=== PATIENT | male | born 1940 | race Caucasian/White ===

== ENCOUNTER 2016-12-26 18:31 | Inpatient (IN) | payer MEDICARE, BC ==
[~2016-12-26] VITALS: Ht 198.1 cm; Wt 124.9 kg
[~2016-12-26 18:31] MED LIST: AMLO1TAB97 PO; IBUP-1007 PO
[2016-12-26] MEDS: IV NORMAL SALINE 1000ML BAG 1,000 ML IV SCH ×5 (19:08→21:40)
[2016-12-26 19:18] LABS: BASO % 0 % (0-3); EOS % 0 % (0-3); HEMATOCRIT 47.3 % (39.0-53.0); HEMOGLOBIN 16.6 g/dL (13.0-17.5); LYMPH # 0.2 x10^3/uL (1.0-4.8); LYMPH % 2 % (24-48); MEAN CORPUSCULAR HEMOGLOBIN 32 pg (25-35); MEAN CORPUSCULAR HGB CONC 35 g/dL (31-37); MEAN CORPUSCULAR VOLUME 93 fL (79-100); MONO % 1 % (0-9); NEUT % 98 % (31-73); PLATELET COUNT 161 x10^3/uL (140-400); RED CELL DISTRIBUTION WIDTH 13.6 % (11.5-14.5); WHITE BLOOD COUNT 9.5 x10^3/uL (4.0-11.0)
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
[2016-12-26 19:24] LABS: CALCIUM 9.9 mg/dL (8.5-10.1); CREATININE 2.2 mg/dL (0.7-1.3); GFR 29.3; POTASSIUM 3.6 mmol/L (3.5-5.1)
[2016-12-26 19:30] LABS: ALBUMIN/GLOBULIN RATIO 0.7 (1.0-1.7); TOTAL BILIRUBIN 7.3 mg/dL (0.2-1.0); TOTAL PROTEIN 7.5 g/dL (6.4-8.2)
--- NOTE | 2016-12-26 19:58 | RAD ---
LIMITED ABDOMINAL ULTRASOUND History: Upper abdominal pain, chills. Comparison: None. Procedure: Transabdominal ultrasound images are obtained. Findings: Pancreas is not well seen, possibly obscured by bowel gas. Liver is suboptimally visualized. Right hepatic lobe is enlarged measuring 20.3 cm. No focal hepatic masses are identified. Parenchymal echogenicity appears mildly increased. Gallbladder is absent. Common bile duct measures normally at 5 mm in diameter. Right kidney measures 10.8 cm in length. There is no evidence of stone or hydronephrosis. Right kidney demonstrates cyst measuring 2.0 cm IVC is poorly visualized. Impression: 1. Echogenic, enlarged liver, compatible with fatty liver disease. 2. Status post cholecystectomy. 3. Right renal cyst. Electronically signed by: Douglas Dimas MD (12/26/2016 7:54 PM)
[2016-12-26 20:03] LABS: PLT ESTIMATE DECREASED (ADEQUATE); POLYCHROMASIA SLIGHT
[2016-12-26 20:04] LABS: OVALOCYTES OCC
[2016-12-26] MEDS ORDERED: levOFLOXacin PER PHARMACY. MC PRN (20:30)
[2016-12-26] MEDS ORDERED: PIP/TAZO PER PHARMACY MC PRN (20:30)
[2016-12-26] MEDS ORDERED: HYDROCORTISONE SOD SUCC/PF 100 MG/2 ML VIAL. IV ONE (20:30)
[2016-12-26 20:37] LABS: GLUCOSE,URINE NEGATIVE (NEG); PH,URINE 5.5; PROTEIN,URINE 100 mg/dL (NEG-TRACE)
--- NOTE | 2016-12-26 20:42 | ACF ---
Admission Forms Criteria SEVERE SEPSIS Clinical Indications for Admission to Inpatient Care (Place 'X' for any and all applicable criteria): Hospital admission is needed for appropriate care of the patient because of ANY ONE of the following: [X]I. Hemodynamic instability indicated by ANY ONE of the following(1)(2)(3)( 4)(5): []a. Vital sign abnormality not readily corrected by appropriate treatment within 12 to 24 hours indicated by ANY ONE of the following: []i) Tachycardia that persists despite appropriate treatment []ii) Hypotension that persists despite appropriate treatment []iii) Orthostatic vital sign changes that persist despite appropriate treatment [X]b. Vital sign abnormality that is severe indicated by ANY ONE of the following: [X]i. Inadequate perfusion indicated by ANY ONE of the following: [X]1) Lactic acidosis (greater than 2 mmol/L) []2) New abnormal capillary refill (greater than 3 seconds) []3) Reduced urine output []4) New altered mental status []5) Myocardial Ischemia []ii. Mean arterial pressure [A] less than 60 mm Hg []iii. Mean arterial pressure[A] less than 70 mm Hg after 30 minutes of appropriate treatment (eg, fluid resuscitation) []iv. Sustained heart rate greater than 120 beats per minute in adult []v. IV inotropic or vasopressor medication required to maintain adequate blood pressure or perfusion []II. Systemic or infectious condition causing severe symptoms or findings not responsive to emergency or observation care treatment (as appropriate) indicated by ANY ONE of the following: []a. Cardiac arrhythmias of immediate concern(1)(2)(3) []b. Severe endocrine disorder (eg, thyrotoxicosis, adrenal insufficiency)(4)(5) []c. Seizures (eg, new or recurrent)(6) []d. New-onset end organ failure or dysfunction as indicated by ANY ONE of the following: []i. Acute unexplained hypoxemia (eg, not from lung infection or chronic disease)(7)(8)(9) []ii. Acute renal failure as indicated by new onset of ANY ONE of the following(10)(11)(12)(13)(14): []1) 3-fold rise in serum creatinine from baseline []2) Serum creatinine greater than 4 mg/dL (354 micromoles/L) with acute rise greater than 0.5 mg/dL (44.2 micromoles/L) []3) Reduction of more than 75% in estimated glomerular filtration rate from baseline. []4) Estimated glomerular filtration rate less than 35 mL/min/1.73m2 ( 0.59 mL/sec/1.73m2) in child younger than 18 years. []5) Cessation of urine output indicated by ALL of the following: []A. Adequate volume status []B. Inadequate urine output as indicated by ANY ONE of the following: []a. Urine output less than 0.3 mL/kg/hr for 24 hours []b. Anuria (urine output less than 0.1 mL/kg/hr) for 12 hours []iii. Acute mental status changes(15) []iv. Acute hepatic failure (eg, plasma bilirubin greater than 4 mg/ dL (68 micromoles/L), new INR greater than 2.0)(16)(17) []e. Unmanageable nausea and vomiting(18) []f. New-onset or uncontrolled central diabetes insipidus(19)(20) []g. Clinically significant dehydration(18)(21) []h. Hypoglycemia(22) []i. Acidosis (pH less than 7.35) or alkalosis (pH greater than 7.45)( 22)(23) []j. Toxic drug level that indicates need for specific monitoring or treatment(24)(25) []k. Severe electrolyte abnormalities indicated by ALL of the following( 1)(2)(3): []i. Electrolytes and associated findings are not as expected for patient baseline or acceptable treatment effects. []ii. Severe abnormalities indicated by ANY ONE of the following: []1) Sodium less than 130 mEq/L (mmol/L) (new) []2) Sodium less than 135 mEq/L (mmol/L) with ANY ONE of the following: []A. Uncorrectable (to near normal or chronic baseline) after trial of outpatient and emergency treatment []B. Altered mental status []C. Seizures []D. Severe medical etiology requiring inpatient management (eg , heart failure, hypovolemia) []3) Sodium greater than 155 mEq/L (mmol/L) []4) Sodium greater than 150 mEq/L (mmol/L) with ANY ONE of the following: []A. Uncorrectable (to near normal or chronic baseline) with outpatient and emergency treatment []B. Altered mental status []C. Seizures []D. Severe medical etiology (eg, hypovolemia, diabetes insipidus) []5) Potassium less than 2.5 mEq/L (mmol/L) despite outpatient and emergency treatment []6) Potassium less than 3 mEq/L (mmol/L) with ANY ONE of the following : []A. Weakness []B. Cardiac abnormality (eg, arrhythmia, conduction disturbance ) []C. Cardiac ischemia []D. Ileus []E. Ongoing medical cause requiring inpatient management (eg, acute renal wasting or SIADH) []F. Other severe symptoms []7) Potassium greater than 6.5 mEq/L (mmol/L) []8) Potassium greater than 5 mEq/L (mmol/L) with ANY ONE of the following: []A. Uncorrectable (to near normal or chronic baseline) with outpatient and emergency treatment []B. Severe ECG findings[A] []C. Acute worsening of renal failure (creatinine greater than 2.5 mg/dL (221 micromoles/L) or significant elevation for age and size) []D. Severe weakness []E. Severe medical etiology (eg, hemolysis, infection, drug overdose) []9) Calcium less than 7 mg/dL (1.75 mmol/L) despite outpatient and emergency treatment(5) []10) Calcium less than 8 mg/dL (2 mmol/L) with significant symptoms or findings (eg, altered mental status, muscle spasms, seizures, breathing difficulty, cardiac abnormality (eg, arrhythmia or conduction disturbance))(5) []11) Calcium greater than 14 mg/dL (3.5 mmol/L)(5) []12) Calcium greater than 12 mg/dL (3 mmol/L) with ANY ONE of the following(5): []A. Uncorrectable (to near normal or chronic baseline) with outpatient and emergency treatment []B. Significant dehydration or hypovolemia as indicated by ALL of the following(3)(6)(7): []a. Not resolved with initial treatments []b. Clinically significant dehydration as indicated by ANY ONE of the following: [](1) Vomiting refractory to outpatient treatment (ie, precluding oral rehydration) [](2) Inability to drink [](3) Hypernatremia or other electrolyte abnormality unable to be corrected with outpatient and emergency treatment [](4) Failure to remain hydrated with outpatient therapy [](5) Reduced urine output [](6) Hypotension [](7) Serious cause for dehydration requiring acute hospitalization ( eg, bowel obstruction, increased intracranial pressure, infectious cause) [](8) Child with ANY ONE of the following(8): [](i) Severe abdominal tenderness [](ii) Adequate care not available at home [](iii) Severe dehydration (greater than 9% loss of body weight) []C. Significant symptoms or findings (eg, altered mental status , cardiac abnormality (eg, arrhythmia, conduction disturbance), malignant etiology requiring inpatient treatment) []13) Phosphorus less than 1 mg/dL (0.32 mmol/L) []14) Phosphorus less than 1.5 mg/dL (0.48 mmol/L) with ANY ONE of the following: []A. Patient unresponsive to outpatient and emergency treatment []B. Significant symptoms or findings (eg, weakness, altered mental status, breathing difficulty, seizures, rhabdomyolysis) []15) Phosphorus greater than 10 mg/dL (3.2 mmol/L) []16) Phosphorus greater than 4.5 mg/dL (1.45 mmol/L) (new) with ANY ONE of the following: []A. Severe medical etiology (eg, crush injury, acute renal failure) []B. Associated hypocalcemia with significant findings (eg, neurologic symptoms, altered mental status, muscle spasms, seizures, breathing difficulty, cardiac abnormality (eg, arrhythmia, conduction disturbance)) []16) Magnesium less than 1 mg/dL (0.41 mmol/L) []17) Magnesium less than 1.5 mg/dL (0.62 mmol/L) with ANY ONE of the following: []A. Patient unresponsive to outpatient and emergency treatment []B. Associated hypocalcemia with significant findings (eg, altered mental status, muscle spasms, seizures, breathing difficulty, cardiac abnormality (eg, arrhythmia, conduction disturbance)) []C. Associated hypokalemia (potassium less than 3 mEq/L (mmol/L )) with risk of arrhythmia []18) Magnesium greater than 4 mEq/L (2 mmol/L) []19) Magnesium greater than 2.5 mEq/L (1.25 mmol/L) with significant symptoms or findings (eg, weakness, altered mental status, cardiac abnormality (eg, arrhythmia, conduction disturbance), breathing difficulty, severe medical etiology (eg, renal failure, hypovolemia)) []20) Uric acid greater than 20 mg/dL (1190 micromoles/L)(9) []21) Uric acid greater than 8 mg/dL (476 micromoles/L) with significant symptoms or findings of tumor lysis syndrome (eg, creatinine greater than 1.5 times upper limit of normal, cardiac abnormality (eg , arrhythmia, conduction disturbance), seizure)(9) []III. High fever or other high-risk infection situation as indicated by ANY ONE of the following(26)(27)(28): []a. Outpatient and observation care antimicrobial treatment unavailable, not effective, or not appropriate []b. Documented bacteremia []c. Temperature greater than 104.9 degrees F (40.5 degrees C) (oral) []d. Temperature greater than 103.1 degrees F (39.5 degrees C) (oral) or less than 96.8 degrees F (36 degrees C) (rectal) that does not respond to emergency treatment and observation care []IV. High-risk febrile neutropenia[A] as indicated by ANY ONE of the following(29)(30)(31)(32): []a. Profound neutropenia[B] anticipated to extend for more than 7 days []b. Hemodynamic instability []c. Hypoxemia []d. Tachypnea []e. Altered mental status []f. New-onset abdominal pain []g. New-onset vomiting or diarrhea []h. Oral or gastrointestinal mucositis that interferes with swallowing or causes severe diarrhea []i. Focal infection (eg, cellulitis, pneumonia, central line or catheter infection, perirectal abscess) []j. Renal insufficiency (eg, GFR of less than 30 mL/min/1.73m2 (0.5 mL/sec /1.73m2)). []k. Severe liver dysfunction (transaminase levels greater than 5 times normal) []l. Platelet count less than 50,000/mm3 (50 x109/L)(33) []m. Leukemia or lymphoma induction therapy []n. Leukemia not in complete remission or with evidence of disease progression []o. Bone marrow transplant patient []p. Alemtuzumab being used for therapy []q. [employer] Supportive Care in Cancer (MASCC) Risk Index score of less than 21[C](33)(35). []V. Isolation required (eg, tuberculosis that requires isolation, Ebola infection)[D](36)(37)(38)(39)(40) []. Gangrene that requires treatment beyond emergency or observation level care(41)(42) []VII. Antitoxin administration and ongoing observation required (eg, tetanus, botulism)(43)(44) []. Suspected infection with rapid progression or severe symptoms as indicated by ANY ONE of the following(45): []a. Streptococcal or staphylococcal toxic shock(46) []b. Diphtheria(47) []c. Hantavirus(48) []d. Severe acute respiratory syndrome(8)(49) []e. Anthrax(50) []f. Ebola[D](36)(37)(38) []g. Necrotizing soft tissue infection(41)(42) []h. Plague(50) []i. Other suspected infection that requires care beyond emergency or observation level care []VII. Severe adverse drug or systemic toxin reaction as indicated by ANY ONE of the following(24): []a. Serotonin syndrome(51)(52) []b. Neuroleptic malignant syndrome(51)(52) []c. Cholinergic syndrome with severe symptoms (eg, bronchorrhea, weakness , mental status changes, seizures)(53) []d. Anticholinergic syndrome []e. Sympathetic syndrome with severe symptoms (eg, seizures, mental status changes, cardiac dysrhythmias) []f. Other severe adverse drug or systemic toxin reaction that remains after emergency or observation level care (as appropriate) []VIII. Allergic reaction with severe symptoms (not responsive to emergency or observation care treatment as appropriate), including ANY ONE of the following(54): []a. Airway edema (pharyngeal, epiglottic, or laryngeal edema) []b. Stridor []c. Respiratory failure []d. Bronchospasm []e. Hypotension []IX. Environmental emergency (not responsive to emergency or observation care treatment as appropriate) as indicated by ANY ONE of the following(55)(56): []a. Hyperthermia []b. Heat stroke []c. Heat exhaustion []d. Hypothermia (temperature less than 95 degrees F (35 degrees C) rectal) (57) []e. Electrocution(58) []X. Complications of transplanted organ (ie, not covered elsewhere)[E] indicated by ANY ONE of the following(59): []a. Acute graft rejection (or graft vs. host disease)[F] requiring inpatient management (eg, intravenous immunosuppression)(60)(61)(62)( 63) []b. Acute failure of transplanted organ necessitating inpatient care (eg, cannot be managed in other setting) []c. Infection requiring inpatient management (eg, Hemodynamic instability, need for intravenous antimicrobial treatment)(64)(65) []d. Other complication of transplanted organ requiring inpatient management []XI. Systemic or Infectious Condition condition, symptom, or finding for which emergency and observation care have failed or are not considered appropriate. See General Criteria: Observation Care, General Admission Criteria or Pediatric General Admission Criteria guideline as appropriate. (Contents from SEVERE SEPSIS and SYSTEMIC OR INFECTIOUS CONDITION clinical indications for admission to inpatient care have been integrated in this form) The original [facility] content created by [email or web address] has been revised. The portions of the content which have been revised are identified through the use of italic text or in bold and [facility] has neither reviewed nor approved the modified material. All other unmodified content is copyright [facility]. Please see references footnoted in the original [facility] edition 2016 Admission Criteria Met?: Yes AGUSTIN CHEUNG Dec 26, 2016 20:42
[2016-12-26 20:58] LABS: BACTERIA,URINE FEW /HPF (0-FEW); RBC,URINE OCC /HPF (0-2)
[2016-12-26] MEDS ORDERED: PIPERACILLIN/TAZOBACTAM 3.375 GM in IV NORMAL SALINE 50ML 50 ML IV ONE (21:00)
[2016-12-26] MEDS ORDERED: ONDANSETRON PF 4 MG/2 ML VIAL. IV PRN (21:15)
[2016-12-26] MEDS ORDERED: ACETAMINOPHEN 325 MG TABLET. PO PRN (21:15)
[2016-12-26] MEDS ORDERED: fentaNYL PF VIAL 100 MCG/2 ML VIAL IV PRN (21:15)
[2016-12-26] MEDS ORDERED: VANCOMYCIN 2 GM in IV NORMAL SALINE 500ML BAG 500 ML IV ONE (22:00)
--- NOTE | 2016-12-26 22:40 | RAD ---
History: Abdominal pain, nausea, fever. Comparison: None. Technique: CT of the abdomen and pelvis was performed without intravenous or oral contrast. Exposure: One or more of the following individualized dose reduction techniques were utilized for this examination: 1. Automated exposure control 2. Adjustment of the mA and/or kV according to patient size 3. Use of iterative reconstruction technique Findings: Evaluation of solid organs of the abdomen and pelvis is limited by lack of intravenous contrast. Evaluation of enteric structures may be limited by lack of oral contrast. Liver, spleen, pancreas, and bilateral adrenal glands are unremarkable. Gallbladder is absent. Bilateral kidneys and ureters are free of stone or obstruction. Both kidneys demonstrate low-density lesions, not adequately characterized on this examination. No bowel obstruction or inflammation is seen. Colonic diverticulosis is noted, but no diverticulitis appreciated. Urinary bladder is unremarkable. No free air or free fluid is seen in the abdomen or pelvis. Appendix is without evidence of inflammation. Degenerative changes are present in the spine. Impression: 1. No acute abnormality identified in the abdomen or pelvis. 2. Colonic diverticulosis, without evidence of diverticulitis. Electronically signed by: Douglas Dimas MD (12/26/2016 10:37 PM)
--- NOTE | 2016-12-26 22:42 | PDOC1 ---
History and Physical Date of Admission Date of Admission DATE: 12/26/16 TIME: 22:31 Identification/Chief Complaint Chief Complaint chills, rigors, abd pain Problems: Source Source: Chart review, Patient History of Present Illness History of Present Illness Mr. Cho, is a 76 year old male admit from ER with chills, rigors, lethargy He presented w. complaint of chills, shortness of breath, and abdominal pain, worsening over 3 days. he went to ER at [place] 3 days ago, and was sent home , "they couldnt find anything" He has gotten weaker, with chills and rigors and weakness. now he has shortness of breath and worsening abd pain, he complains of dry mouth and dry eyes. Hx [facility], he reports Dr. 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 Family History: Hypertension Social History Smoke: Quit (1984) ALCOHOL: occassional (1-2 per week) Drugs: None Current Problem List Problem List Problems Medical Problems: (1) Severe sepsis Status: Acute Problems: Current Medications Current Medications Current Medications Sodium Chloride 1,000 ml @ 1,180 mls/hr Q51M IV Last administered on 21:03; Start 12/26/16 at 19:15; Stop 12/26/16 at 22:15; Status DC Hydrocortisone Sodium Succinate (Solu-CORTEF) 100 mg 1X ONCE IV Last administered on 12/26/16 20:36; Start 12/26/16 at 20:30; Stop 12/26/16 at 20:32 ; Status DC Vancomycin HCl (Vanco Per Pharmacy) 1 each PRN DAILY PRN [facility] SEE COMMENTS; Start 12/26/16 at 20:30 Piperacillin Sod/ Tazobactam Sod (Zosyn Per Pharmacy) 1 each PRN DAILY PRN [facility] SEE COMMENTS; Start 12/26/16 at 20:30 Levofloxacin/ Dextrose (Levaquin Per Pharmacy) 1 each PRN DAILY PRN [facility] SEE COMMENTS; Start 12/26/16 at 20:30 Levofloxacin/ Dextrose 150 ml @ 100 mls/hr 1X ONCE IV Last administered on 21:03; Start 12/26/16 at 21:00; Stop 12/26/16 at 22:29; Status DC Piperacillin Sod/ Tazobactam Sod 3.375 gm/Sodium Chloride 50 ml @ 100 mls/hr 1X ONCE IV ; Start 12/26/16 at 21:00; Stop 12/26/16 at 21:29; Status DC Vancomycin HCl 2 gm/Sodium Chloride 500 ml @ 250 mls/hr 1X ONCE IV ; Start at 22:00; Stop 12/26/16 at 23:59 Ondansetron HCl (Zofran) 4 mg PRN Q8HRS PRN IV NAUSEA/VOMITING; Start 12/26/16 at 21:15; Stop 12/27/16 at 21:14 Fentanyl Citrate (Fentanyl 2ml Vial) 50 mcg PRN Q2HR PRN IV SEVERE PAIN; Start 12/26/16 at 21:15; Stop 12/27/16 at 21:14 Sodium Chloride 1,000 ml @ 150 mls/hr Q6H40M IV Last administered on 21:40; Start 12/26/16 at 21:14; Stop 12/27/16 at 21:13 Acetaminophen (Tylenol) 650 mg PRN Q4HRS PRN PO FEVER; Start 12/26/16 at 21:15 ; Stop 12/27/16 at 21:14 Active Scripts Active No Active Prescriptions or Reported Medications Allergies Allergies: Coded Allergies: No Known Drug Allergies (Unverified , 10/07/14) ROS General: YES: Chills, Night Sweats, Fatigue, Malaise, Appetite, No: Other PSYCHOLOGICAL ROS: No: Anxiety, Behavioral Disorder, Concentration difficultie , Decreased libido, Depression, Disorientation, Hallucinations, Hostility, Irritablity, Memory difficulties, Mood Swings, Obsessive thoughts, Other Eyes: Yes Dry eyes, No Blurry vision, No Decreased vision, No Double vision, No Excessive tearing , No Eye Pain, No Itchy Eyes, No Loss of vision, No Photophobia, No Scotomata, No Uses contacts, No Uses glasses, No Other HEENT: No: Heacaches, Visual Changes, Hearing change, Nasal congestion, Nasal discharge, Oral lesions, Sinus pain, Sore Throat, Epistaxis, Sneezing, Snoring, Tinnitus, Vertigo, Vocal changes, Other ALLERGY AND IMMUNOLOGY: No: Hives, Insect Bite Sensitivity, Itchy/Watery Eyes, Nasal Congestion, Post Nasal Drip, Seasonal Allergies, Other Hematological and Lymphatic: No: Bleeding Problems, Blood Clots, Blood Transfusions, Brusing, Night Sweats, Pallor, Swollen Lymph Nodes, Other Respiratory: No: Cough, Hemoptysis, Orthopnea, Pleuritic Pain, Shortness of breath, SOB with excertion, Sputum Changes, Stridor, Tachypnea, Wheezing, Other Cardiovascular: No Chest Pain, No Palpitations, No Orthopnea, No Paroxysmal Noc. Dyspnea, No Edema, No Lt Headedness, No Other Gastrointestinal: Yes Nausea, Yes Abdominal Pain, No Vomiting, No Diarrhea, No Constipation, No Melena, No Hematochezia, No Other Genitourinary: No Dysuria, No Frequency, No Incontinence, No Hematuria, No Retention, No Discharge, No Urgency, No Pain, No Flank Pain, No Other, No , No , No , No , No , No , No Musculoskeletal: Yes Joint Stiffness, No Gait Disturbance, No Joint Pain, No Joint Swelling, No Muscle Pain, No Muscular Weakness, No Pain In:, No Swelling In:, No Other Neurological: No Behavorial Changes, No Bowel/Bladder ControlChng, No Confusion , No Dizziness, No Gait Disturbance, No Headaches, No Impaired Coord/balance, No Memory Loss, No Numbness/Tingling, No Seizures, No Speech Problems, No Tremors, No Visual Changes, No Weakness, No Other Skin: Yes Dry Skin, No Eczema, No Hair Changes, No Lumps, No Mole Changes, No Mottling, No Nail Changes, No Pruritus, No Rash, No Skin Lesion Changes, No Other, No Acne Physical Exam General: Alert, Oriented X3, Cooperative, mild distress, moderate distress HEENT: Atraumatic, PERRLA, EOMI, Other (dry OP, dentures) Lungs: Clear to auscultation, Normal air movement Heart: no gallops, no murmurs Abdomen: Normal bowel sounds, Soft (tender, diffuse, min guarding, no rebound) Rectal Exam: not examined Extremities: No edema, Normal pulses Skin: No rashes, No significant lesion Neuro: Normal speech, Normal tone, Sensation intact, Cranial nerves 3-12 NL Psych/Mental Status: Mental status NL, Mood NL (some pain, lethargy, chills, rigors) Vitals Vitals Vital Signs Date Time Temp Pulse Resp B/P (MAP) Pulse Ox O2 Delivery O2 Flow Rate FiO2 12/26/16 21:37 104 22 117/71 (86) 95 Room Air 12/26/16 20:37 98.2 98.2 Labs Labs Laboratory Tests Test 12/26/16 18:45 12/26/16 20:20 12/26/16 21:15 White Blood Count 9.5 x10^3/uL (4.0-11.0) Red Blood Count 5.10 x10^6/uL (4.30-5.70) Hemoglobin 16.6 g/dL (13.0-17.5) Hematocrit 47.3 % (39.0-53.0) Mean Corpuscular Volume 93 fL (79-100) Mean Corpuscular Hemoglobin 32 pg (25-35) Mean Corpuscular Hemoglobin Concent 35 g/dL (31-37) Red Cell Distribution Width 13.6 % (11.5-14.5) Platelet Count 161 x10^3/uL (140-400) Neutrophils (%) (Auto) 98 % (31-73) Lymphocytes (%) (Auto) 2 % (24-48) Monocytes (%) (Auto) 1 % (0-9) Eosinophils (%) (Auto) 0 % (0-3) Basophils (%) (Auto) 0 % (0-3) Neutrophils # (Auto) 9.3 x10^3uL (1.8-7.7) Lymphocytes # (Auto) 0.2 x10^3/uL (1.0-4.8) Monocytes # (Auto) 0.1 x10^3/uL (0.0-1.1) Eosinophils # (Auto) 0.0 x10^3/uL (0.0-0.7) Basophils # (Auto) 0.0 x10^3/uL (0.0-0.2) Segmented Neutrophils % 91 % (35-66) Lymphocytes % 3 % (24-48) Monocytes % 6 % (0-10) Platelet Estimate Decreased (ADEQUATE) Platelet Clumps, EDTA Present Large Platelets Occ Polychromasia Slight Ovalocytes Occ Sodium Level 138 mmol/L (136-145) Potassium Level 3.6 mmol/L (3.5-5.1) Chloride Level 101 mmol/L (98-107) Carbon Dioxide Level 21 mmol/L (21-32) Anion Gap 16 (6-14) Blood Urea Nitrogen 15 mg/dL (8-26) Creatinine 2.2 mg/dL (0.7-1.3) Estimated GFR (Cockcroft-Gault) 29.3 BUN/Creatinine Ratio 7 (6-20) Glucose Level 101 mg/dL (70-99) Lactic Acid Level 6.2 mmol/L (0.4-2.0) 4.4 mmol/L (0.4-2.0) Calcium Level 9.9 mg/dL (8.5-10.1) Total Bilirubin 7.3 mg/dL (0.2-1.0) Aspartate Amino Transf (AST/SGOT) 61 U/L (15-37) Alanine Aminotransferase (ALT/SGPT) 58 U/L (16-63) Alkaline Phosphatase 260 U/L (46-116) Total Protein 7.5 g/dL (6.4-8.2) Albumin 3.0 g/dL (3.4-5.0) Albumin/Globulin Ratio 0.7 (1.0-1.7) Lipase 145 U/L (73-393) Procalcitonin 16.32 ng/mL (0.00-0.10) Urine Collection Type Unknown Urine Color [place] Urine Clarity Cloudy Urine pH 5.5 Urine Specific [place] 1.020 Urine Protein 100 mg/dL (NEG-TRACE) Urine Glucose (UA) Negative mg/dL (NEG) Urine Ketones (Stick) Negative mg/dL (NEG) Urine Blood Small (NEG) Urine Nitrite (NEG) Urine Bilirubin (NEG) Urine Urobilinogen Dipstick mg/dL (0.2 mg/dL) Urine Leukocyte Esterase Small (NEG) Urine RBC Occ /HPF (0-2) Urine WBC 5-10 /HPF (0-4) Urine Amorphous Sediment Present /HPF Urine Bacteria Few /HPF (0-FEW) Urine Hyaline Casts Many /HPF Urine Mucus Marked /LPF Laboratory Tests Test 12/26/16 18:45 12/26/16 20:20 12/26/16 21:15 White Blood Count 9.5 x10^3/uL (4.0-11.0) Red Blood Count 5.10 x10^6/uL (4.30-5.70) Hemoglobin 16.6 g/dL (13.0-17.5) Hematocrit 47.3 % (39.0-53.0) Mean Corpuscular Volume 93 fL (79-100) Mean Corpuscular Hemoglobin 32 pg (25-35) Mean Corpuscular Hemoglobin Concent 35 g/dL (31-37) Red Cell Distribution Width 13.6 % (11.5-14.5) Platelet Count 161 x10^3/uL (140-400) Neutrophils (%) (Auto) 98 % (31-73) Lymphocytes (%) (Auto) 2 % (24-48) Monocytes (%) (Auto) 1 % (0-9) Eosinophils (%) (Auto) 0 % (0-3) Basophils (%) (Auto) 0 % (0-3) Neutrophils # (Auto) 9.3 x10^3uL (1.8-7.7) Lymphocytes # (Auto) 0.2 x10^3/uL (1.0-4.8) Monocytes # (Auto) 0.1 x10^3/uL (0.0-1.1) Eosinophils # (Auto) 0.0 x10^3/uL (0.0-0.7) Basophils # (Auto) 0.0 x10^3/uL (0.0-0.2) Segmented Neutrophils % 91 % (35-66) Lymphocytes % 3 % (24-48) Monocytes % 6 % (0-10) Platelet Estimate Decreased (ADEQUATE) Platelet Clumps, EDTA Present Large Platelets Occ Polychromasia Slight Ovalocytes Occ Sodium Level 138 mmol/L (136-145) Potassium Level 3.6 mmol/L (3.5-5.1) Chloride Level 101 mmol/L (98-107) Carbon Dioxide Level 21 mmol/L (21-32) Anion Gap 16 (6-14) Blood Urea Nitrogen 15 mg/dL (8-26) Creatinine 2.2 mg/dL (0.7-1.3) Estimated GFR (Cockcroft-Gault) 29.3 BUN/Creatinine Ratio 7 (6-20) Glucose Level 101 mg/dL (70-99) Lactic Acid Level 6.2 mmol/L (0.4-2.0) 4.4 mmol/L (0.4-2.0) Calcium Level 9.9 mg/dL (8.5-10.1) Total Bilirubin 7.3 mg/dL (0.2-1.0) Aspartate Amino Transf (AST/SGOT) 61 U/L (15-37) Alanine Aminotransferase (ALT/SGPT) 58 U/L (16-63) Alkaline Phosphatase 260 U/L (46-116) Total Protein 7.5 g/dL (6.4-8.2) Albumin 3.0 g/dL (3.4-5.0) Albumin/Globulin Ratio 0.7 (1.0-1.7) Lipase 145 U/L (73-393) Procalcitonin 16.32 ng/mL (0.00-0.10) Urine Collection Type Unknown Urine Color [place] Urine Clarity Cloudy Urine pH 5.5 Urine Specific [place] 1.020 Urine Protein 100 mg/dL (NEG-TRACE) Urine Glucose (UA) Negative mg/dL (NEG) Urine Ketones (Stick) Negative mg/dL (NEG) Urine Blood Small (NEG) Urine Nitrite (NEG) Urine Bilirubin (NEG) Urine Urobilinogen Dipstick mg/dL (0.2 mg/dL) Urine Leukocyte Esterase Small (NEG) Urine RBC Occ /HPF (0-2) Urine WBC 5-10 /HPF (0-4) Urine Amorphous Sediment Present /HPF Urine Bacteria Few /HPF (0-FEW) Urine Hyaline Casts Many /HPF Urine Mucus Marked /LPF VTE Prophylaxis Ordered VTE Prophylaxis Devices: Yes VTE Pharmacological Prophylaxi: Yes Assessment/Plan Assessment/Plan sepsis, severe sepsis, trend lactate with IV fluid, aggresive IV abx acute renal failure, vasomotor nephropathy, aggressive IV fluid, consult renal Hyperbili with acute abd pain, US appears normal CBD, no stone triple abx therapy started, GI and ID consulted, cholangitis possible mild malnutrition, acute illness hypoalbumin consider repeat UA in AM, could not det. bili or nitrites, only small LE, poss. UTI GLENN HERRERA MD Dec 26, 2016 22:42
[2016-12-26 22:45] VITALS: BP 91/64
[2016-12-26 23:00] VITALS: BP 82/58
[2016-12-26 23:15] VITALS: BP 96/66
[2016-12-26 23:30] VITALS: BP 94/68
[2016-12-26] MEDS ORDERED: NOREPINEPHRIN PREMIX 250 ML IV PRN (23:30)
[2016-12-26] MEDS ORDERED: IV NORMAL SALINE 1000ML BAG 1,000 ML IV ONE (23:30)
[2016-12-26 23:45] VITALS: BP 80/58
[2016-12-26] MEDS: ENOXAPARIN 40 MG/0.4 ML SYRINGE. SQ SCH (23:57)
[2016-12-27] VITALS (27 sets, daily range): BP systolic 75–124; BP diastolic 52–86
[2016-12-27 01:35] LABS: CALCIUM 7.9 mg/dL (8.5-10.1); CREATININE 1.8 mg/dL (0.7-1.3); POTASSIUM 3.9 mmol/L (3.5-5.1)
[2016-12-27 01:49] LABS: BASO % 0 % (0-3); EOS % 0 % (0-3); HEMOGLOBIN 13.7 g/dL (13.0-17.5); LYMPH # 0.3 x10^3/uL (1.0-4.8); LYMPH % 2 % (24-48); MEAN CORPUSCULAR HEMOGLOBIN 31 pg (25-35); MEAN CORPUSCULAR HGB CONC 33 g/dL (31-37); MEAN CORPUSCULAR VOLUME 94 fL (79-100); MONO % 5 % (0-9); NEUT % 93 % (31-73); PLATELET COUNT 151 x10^3/uL (140-400); RED BLOOD COUNT 4.35 x10^6/uL (4.30-5.70); RED CELL DISTRIBUTION WIDTH 13.8 % (11.5-14.5); WHITE BLOOD COUNT 20.7 x10^3/uL (4.0-11.0)
[2016-12-27] MEDS: VANCOMYCIN PER PHARMACY MC PRN ×2 (02:10→09:20)
[2016-12-27] MEDS: IV NORMAL SALINE 1000ML BAG 1,000 ML IV SCH ×3 (04:00→17:34)
[2016-12-27] MEDS: PIPERACILLIN/TAZOBACTAM 3.375 GM in IV NORMAL SALINE 50ML 50 ML IV SCH ×4 (05:49→23:35)
--- NOTE | 2016-12-27 06:34 | EKG ---
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
[2016-12-27 06:39] LABS: ALBUMIN 2.4 g/dL (3.4-5.0); DIRECT BILIRUBIN 3.2 mg/dL (0.0-0.2); TOTAL BILIRUBIN 4.7 mg/dL (0.2-1.0); TOTAL PROTEIN 6.5 g/dL (6.4-8.2)
[2016-12-27 06:46] LABS: INR 1.3 (0.8-1.1); PROTHROMBIN TIME PATIENT 15.5 SEC (11.7-14.0)
--- NOTE | 2016-12-27 07:23 | RAD ---
Indication: Chills and shortness of air. Time of exam 1907 hours. Correlation is made with prior exam from 12/18/2013. FINDINGS: The heart size is normal. The lungs are clear. No pleural effusion or pneumothorax is identified. The pulmonary vascularity is normal. IMPRESSION: No acute abnormality detected.
--- NOTE | 2016-12-27 07:25 | PDOC ---
Infectious Disease Note ROS ROS GEN: Denies fevers, chills, sweats HEENT: Denies blurred vision, sore throat CV: Denies chest pain RESP: Denies shortness of air, cough GI: Denies n/v/d NEURO: Denies confusion, dizziness MSK: Denies weakness, joint pain/swelling Vital Sign Vital Signs Vital Signs Date Time Temp Pulse Resp B/P (MAP) Pulse Ox O2 Delivery O2 Flow Rate FiO2 12/27/16 06:15 95/68 (77) 12/27/16 06:00 59 16 98 Room Air 12/27/16 04:00 97.9 97.9 Physical Exam PHYSICAL EXAM GENERAL: NAD, Alert HEENT: PERRL, OC/OP NECK: Supple, no JVD, no LN LUNGS: Clear HEART: S1S2, no gallop, no murmur ABD: Soft, NT, no organomegaly, no rebound EXT: No edema, no cyanosis HOME ENERGY RATER: Alert, oriented x 3, no focal neurologic deficit SKIN: No rash IV: ok Labs Lab Laboratory Tests Test 12/26/16 18:45 12/26/16 20:20 12/26/16 21:15 12/27/16 01:05 White Blood Count 9.5 x10^3/uL (4.0-11.0) 20.7 x10^3/uL (4.0-11.0) Red Blood Count 5.10 x10^6/uL (4.30-5.70) 4.35 x10^6/uL (4.30-5.70) Hemoglobin 16.6 g/dL (13.0-17.5) 13.7 g/dL (13.0-17.5) Hematocrit 47.3 % (39.0-53.0) 41.0 % (39.0-53.0) Mean Corpuscular Volume 93 fL (79-100) 94 fL (79-100) Mean Corpuscular Hemoglobin 32 pg (25-35) 31 pg (25-35) Mean Corpuscular Hemoglobin Concent 35 g/dL (31-37) 33 g/dL (31-37) Red Cell Distribution Width 13.6 % (11.5-14.5) 13.8 % (11.5-14.5) Platelet Count 161 x10^3/uL (140-400) 151 x10^3/uL (140-400) Neutrophils (%) (Auto) 98 % (31-73) 93 % (31-73) Lymphocytes (%) (Auto) 2 % (24-48) 2 % (24-48) Monocytes (%) (Auto) 1 % (0-9) 5 % (0-9) Eosinophils (%) (Auto) 0 % (0-3) 0 % (0-3) Basophils (%) (Auto) 0 % (0-3) 0 % (0-3) Neutrophils # (Auto) 9.3 x10^3uL (1.8-7.7) 19.3 x10^3uL (1.8-7.7) Lymphocytes # (Auto) 0.2 x10^3/uL (1.0-4.8) 0.3 x10^3/uL (1.0-4.8) Monocytes # (Auto) 0.1 x10^3/uL (0.0-1.1) 1.1 x10^3/uL (0.0-1.1) Eosinophils # (Auto) 0.0 x10^3/uL (0.0-0.7) 0.0 x10^3/uL (0.0-0.7) Basophils # (Auto) 0.0 x10^3/uL (0.0-0.2) 0.0 x10^3/uL (0.0-0.2) Segmented Neutrophils % 91 % (35-66) Lymphocytes % 3 % (24-48) Monocytes % 6 % (0-10) Platelet Estimate Decreased (ADEQUATE) Platelet Clumps, EDTA Present Large Platelets Occ Polychromasia Slight Ovalocytes Occ Sodium Level 138 mmol/L (136-145) 139 mmol/L (136-145) Potassium Level 3.6 mmol/L (3.5-5.1) 3.9 mmol/L (3.5-5.1) Chloride Level 101 mmol/L (98-107) 106 mmol/L (98-107) Carbon Dioxide Level 21 mmol/L (21-32) 19 mmol/L (21-32) Anion Gap 16 (6-14) 14 (6-14) Blood Urea Nitrogen 15 mg/dL (8-26) 16 mg/dL (8-26) Creatinine 2.2 mg/dL (0.7-1.3) 1.8 mg/dL (0.7-1.3) Estimated GFR (Cockcroft-Gault) 29.3 37.0 BUN/Creatinine Ratio 7 (6-20) Glucose Level 101 mg/dL (70-99) 141 mg/dL (70-99) Lactic Acid Level 6.2 mmol/L (0.4-2.0) 4.4 mmol/L (0.4-2.0) 3.1 mmol/L (0.4-2.0) Calcium Level 9.9 mg/dL (8.5-10.1) 7.9 mg/dL (8.5-10.1) Total Bilirubin 7.3 mg/dL (0.2-1.0) Aspartate Amino Transf (AST/SGOT) 61 U/L (15-37) Alanine Aminotransferase (ALT/SGPT) 58 U/L (16-63) Alkaline Phosphatase 260 U/L (46-116) Total Protein 7.5 g/dL (6.4-8.2) Albumin 3.0 g/dL (3.4-5.0) Albumin/Globulin Ratio 0.7 (1.0-1.7) Lipase 145 U/L (73-393) Procalcitonin 16.32 ng/mL (0.00-0.10) Urine Collection Type Unknown Urine Color [place] Urine Clarity Cloudy Urine pH 5.5 Urine Specific [place] 1.020 Urine Protein 100 mg/dL (NEG-TRACE) Urine Glucose (UA) Negative mg/dL (NEG) Urine Ketones (Stick) Negative mg/dL (NEG) Urine Blood Small (NEG) Urine Nitrite (NEG) Urine Bilirubin (NEG) Urine Urobilinogen Dipstick mg/dL (0.2 mg/dL) Urine Leukocyte Esterase Small (NEG) Urine RBC Occ /HPF (0-2) Urine WBC 5-10 /HPF (0-4) Urine Amorphous Sediment Present /HPF Urine Bacteria Few /HPF (0-FEW) Urine Hyaline Casts Many /HPF Urine Mucus Marked /LPF Test 12/27/16 06:00 Prothrombin Time 15.5 SEC (11.7-14.0) Prothromb Time International Ratio 1.3 (0.8-1.1) Lactic Acid Level 1.6 mmol/L (0.4-2.0) Total Bilirubin 4.7 mg/dL (0.2-1.0) Direct Bilirubin 3.2 mg/dL (0.0-0.2) Aspartate Amino Transf (AST/SGOT) 50 U/L (15-37) Alanine Aminotransferase (ALT/SGPT) 51 U/L (16-63) Alkaline Phosphatase 146 U/L (46-116) Total Protein 6.5 g/dL (6.4-8.2) Albumin 2.4 g/dL (3.4-5.0) Objective Assessment Sepsis - hypotension/lactic acidosis Leukocytosis IBAN ? UTI Transaminitis - ? from sepsis Plan Plan of Care Cont abx Check troponin/TSH F/u labs and cults May need GI eval Reviewed previous records Thank you 35 mins -dictation system down Notified by Nursing [id number] Blood cults + for GNR - d/c Vanc # RUMA CORNELL MD Dec 27, 2016 07:25
[2016-12-27 08:37] LABS: HEMATOCRIT 40.6 % (39.0-53.0); HEMOGLOBIN 14.2 g/dL (13.0-17.5); RED BLOOD COUNT 4.4 x10^6/uL (4.30-5.70); RED CELL DISTRIBUTION WIDTH 14.3 % (11.5-14.5); WHITE BLOOD COUNT 20.7 x10^3/uL (4.0-11.0)
--- NOTE | 2016-12-27 08:54 | PDOC2 ---
GI CONSULT Reason For Consult: Prior ERCP, hyperbilirubinemia, sepsis HPI: HPI: 76 y/o male w/ PMH significant for choledocholithiasis s/p cholecystectomy and ERCP w/ sphincterotomy and stone extraction in 10/2014. He underwent a second ERCP for jaundice in 10/2015 which showed no retained stone or tumor. Previous workup also include negative Hepatitis serologies, moderately positive DIAZ, negative smooth muscle antibody, negative mitochondrial antibody, and normal hemochromatosis mutation testing. In 08/2014, iron was low w/ normal TIBC and % sat and elevated ferritin. Liver biopsy in 10/2014 (at [facility] two days after ERCP) showed cholestatic hepatitis with bile duct proliferation and acute inflammation suggestive of large ductal obstruction. Also note MRCP from 2014 (prior to first ERCP) w/ choledocholithiasis and subcentimeter cystic focus in body of pancreas (nonspecific, ?small pseudocyst or IPMN). On this occasion, evaluated in the ER for chills/rigors and some SOA since . Did also briefly have some upper abdominal "pressure" ("under rib cage"). No n/v, diarrhea, constipation, bleeding, dysphagia, or weight loss although decreased appetite since symptoms began. Occasional reflux improved w/ omeprazole PRN. Found to have bilirubin 7.3 (now 4.7), AST 50, ALT 51, Alk Phos 146. WBC is 20.7 (from 9.5), Cr 1.8 (from 2.2), lactic acid 1.6 (from 6.2). INR is 1.3 and lipase is normal. TSH is low (0.306). CT A/P w/o contrast was unremarkable except for diverticulosis, and abd US showed fatty liver and a right renal cyst. Admitted to ICU, on IV atbx. ID and nephrology also following. PMH: PMH: HTN, OA, cholecystectomy, ERCP w/ sphincterotomy, bilateral knee surgeries, cataract removal FH: Family History: No pertinent hx (deneis GI cancers, liver disease) Social History: Smoke: Quit (1984) ALCOHOL: occassional (a glass of wine or a beer each week) Drugs: None ROS: GEN: +chills HEENT: Denies blurred vision, sore throat CV: Denies chest pain RESP: +SOA GI: Per HPI : Denies hematuria, dysuria ENDO: Denies weight changes NEURO: Denies confusion, dizziness MSK: Denies weakness, joint pain/swelling SKIN: Denies jaundice, pruritus Vitals: Vitals: Vital Signs Date Time Temp Pulse Resp B/P (MAP) Pulse Ox O2 Delivery O2 Flow Rate FiO2 12/27/16 06:15 95/68 (77) 12/27/16 06:00 59 16 98 Room Air 12/27/16 04:00 97.9 97.9 Labs: Labs: Laboratory Tests Test 12/26/16 18:45 12/26/16 20:20 12/26/16 21:15 12/27/16 01:05 White Blood Count 9.5 x10^3/uL (4.0-11.0) 20.7 x10^3/uL (4.0-11.0) Red Blood Count 5.10 x10^6/uL (4.30-5.70) 4.35 x10^6/uL (4.30-5.70) Hemoglobin 16.6 g/dL (13.0-17.5) 13.7 g/dL (13.0-17.5) Hematocrit 47.3 % (39.0-53.0) 41.0 % (39.0-53.0) Mean Corpuscular Volume 93 fL (79-100) 94 fL (79-100) Mean Corpuscular Hemoglobin 32 pg (25-35) 31 pg (25-35) Mean Corpuscular Hemoglobin Concent 35 g/dL (31-37) 33 g/dL (31-37) Red Cell Distribution Width 13.6 % (11.5-14.5) 13.8 % (11.5-14.5) Platelet Count 161 x10^3/uL (140-400) 151 x10^3/uL (140-400) Neutrophils (%) (Auto) 98 % (31-73) 93 % (31-73) Lymphocytes (%) (Auto) 2 % (24-48) 2 % (24-48) Monocytes (%) (Auto) 1 % (0-9) 5 % (0-9) Eosinophils (%) (Auto) 0 % (0-3) 0 % (0-3) Basophils (%) (Auto) 0 % (0-3) 0 % (0-3) Neutrophils # (Auto) 9.3 x10^3uL (1.8-7.7) 19.3 x10^3uL (1.8-7.7) Lymphocytes # (Auto) 0.2 x10^3/uL (1.0-4.8) 0.3 x10^3/uL (1.0-4.8) Monocytes # (Auto) 0.1 x10^3/uL (0.0-1.1) 1.1 x10^3/uL (0.0-1.1) Eosinophils # (Auto) 0.0 x10^3/uL (0.0-0.7) 0.0 x10^3/uL (0.0-0.7) Basophils # (Auto) 0.0 x10^3/uL (0.0-0.2) 0.0 x10^3/uL (0.0-0.2) Segmented Neutrophils % 91 % (35-66) Lymphocytes % 3 % (24-48) Monocytes % 6 % (0-10) Platelet Estimate Decreased (ADEQUATE) Platelet Clumps, EDTA Present Large Platelets Occ Polychromasia Slight Ovalocytes Occ Sodium Level 138 mmol/L (136-145) 139 mmol/L (136-145) Potassium Level 3.6 mmol/L (3.5-5.1) 3.9 mmol/L (3.5-5.1) Chloride Level 101 mmol/L (98-107) 106 mmol/L (98-107) Carbon Dioxide Level 21 mmol/L (21-32) 19 mmol/L (21-32) Anion Gap 16 (6-14) 14 (6-14) Blood Urea Nitrogen 15 mg/dL (8-26) 16 mg/dL (8-26) Creatinine 2.2 mg/dL (0.7-1.3) 1.8 mg/dL (0.7-1.3) Estimated GFR (Cockcroft-Gault) 29.3 37.0 BUN/Creatinine Ratio 7 (6-20) Glucose Level 101 mg/dL (70-99) 141 mg/dL (70-99) Lactic Acid Level 6.2 mmol/L (0.4-2.0) 4.4 mmol/L (0.4-2.0) 3.1 mmol/L (0.4-2.0) Calcium Level 9.9 mg/dL (8.5-10.1) 7.9 mg/dL (8.5-10.1) Total Bilirubin 7.3 mg/dL (0.2-1.0) Aspartate Amino Transf (AST/SGOT) 61 U/L (15-37) Alanine Aminotransferase (ALT/SGPT) 58 U/L (16-63) Alkaline Phosphatase 260 U/L (46-116) Total Protein 7.5 g/dL (6.4-8.2) Albumin 3.0 g/dL (3.4-5.0) Albumin/Globulin Ratio 0.7 (1.0-1.7) Lipase 145 U/L (73-393) Procalcitonin 16.32 ng/mL (0.00-0.10) Urine Collection Type Unknown Urine Color [place] Urine Clarity Cloudy Urine pH 5.5 Urine Specific [place] 1.020 Urine Protein 100 mg/dL (NEG-TRACE) Urine Glucose (UA) Negative mg/dL (NEG) Urine Ketones (Stick) Negative mg/dL (NEG) Urine Blood Small (NEG) Urine Nitrite (NEG) Urine Bilirubin (NEG) Urine Urobilinogen Dipstick mg/dL (0.2 mg/dL) Urine Leukocyte Esterase Small (NEG) Urine RBC Occ /HPF (0-2) Urine WBC 5-10 /HPF (0-4) Urine Amorphous Sediment Present /HPF Urine Bacteria Few /HPF (0-FEW) Urine Hyaline Casts Many /HPF Urine Mucus Marked /LPF Test 12/27/16 06:00 Erythrocyte Sedimentation Rate 39 (0-15) Prothrombin Time 15.5 SEC (11.7-14.0) Prothromb Time International Ratio 1.3 (0.8-1.1) Lactic Acid Level 1.6 mmol/L (0.4-2.0) Total Bilirubin 4.7 mg/dL (0.2-1.0) Direct Bilirubin 3.2 mg/dL (0.0-0.2) Aspartate Amino Transf (AST/SGOT) 50 U/L (15-37) Alanine Aminotransferase (ALT/SGPT) 51 U/L (16-63) Alkaline Phosphatase 146 U/L (46-116) Troponin I Quantitative 0.022 ng/mL (0.000-0.055) Total Protein 6.5 g/dL (6.4-8.2) Albumin 2.4 g/dL (3.4-5.0) Thyroid Stimulating Hormone (TSH) 0.306 uIU/mL (0.358-3.74) Allergies: Coded Allergies: No Known Drug Allergies (Unverified , 10/07/14) Medications: Current Medications Medications (Trade) Dose Ordered Sig/Hector Route PRN Reason Start Time Stop Time Status Last Admin Dose Admin Sodium Chloride 1,000 ml @ 1,180 mls/hr Q51M IV 12/26/16 19:15 12/26/16 22:15 DC 12/26/16 21:03 Hydrocortisone Sodium Succinate (Solu-CORTEF) 100 mg 1X ONCE IV 12/26/16 20:30 12/26/16 20:32 DC 12/26/16 20:36 Vancomycin HCl (Vanco Per Pharmacy) 1 each PRN DAILY PRN MC SEE COMMENTS 12/26/16 20:30 12/27/16 02:10 Levofloxacin/ Dextrose 150 ml @ 100 mls/hr 1X ONCE IV 12/26/16 21:00 12/26/16 22:29 DC 12/26/16 21:03 Piperacillin Sod/ Tazobactam Sod 3.375 gm/Sodium Chloride 50 ml @ 100 mls/hr 1X ONCE IV 12/26/16 21:00 12/26/16 21:29 DC 12/26/16 22:40 Vancomycin HCl 2 gm/Sodium Chloride 500 ml @ 250 mls/hr 1X ONCE IV 12/26/16 22:00 12/26/16 23:59 DC 12/26/16 23:57 Sodium Chloride 1,000 ml @ 150 mls/hr Q6H40M IV 12/26/16 21:14 12/27/16 21:13 12/27/16 04:00 Enoxaparin Sodium (Lovenox 40mg Syringe) 40 mg QHS SQ 12/26/16 23:00 12/26/16 23:57 Sodium Chloride 1,000 ml @ 1,000 mls/hr 1X ONCE IV 12/26/16 23:30 12/27/16 00:29 DC 12/26/16 23:26 Norepinephrine Bitartrate 250 ml @ 0 mls/hr CONT PRN IV SEE I/O RECORD 12/26/16 23:30 12/27/16 00:06 Piperacillin Sod/ Tazobactam Sod 3.375 gm/Sodium Chloride 50 ml @ 100 mls/hr Q6HRS IV 12/27/16 06:00 12/27/16 05:49 Imaging: Imaging: CXR IMPRESSION: No acute abnormality detected. Abd US Impression: 1. Echogenic, enlarged liver, compatible with fatty liver disease. 2. Status post cholecystectomy. 3. Right renal cyst. CT A/P w/o contrast Impression: 1. No acute abnormality identified in the abdomen or pelvis. 2. Colonic diverticulosis, without evidence of diverticulitis. PE: GEN: NAD, up to chair HEENT: Atraumatic, PERRL LUNGS: CTAB HEART: RRR ABD: NABS, S/ND/NT EXTREMITY: No edema NEURO/PSYCH: A & O 3 A/P: A/P: Hyperbilirubinemia -recurrent -prior workup per HPI includes labs, MRCP, ERCP x 2, liver biopsy Sepsis -hypotension (better), leukocytosis (worse), lactic acidosis (resolved), IBAN ( Cr better) -possible UTI -on atbx per ID GERD -occasional symptoms improved w/ omeprazole PRN CRC screen -no previous colonoscopy -- D/w Dr. Arias. Will order MRCP. 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
--- NOTE | 2016-12-27 10:35 | PDOC2 ---
CONSULT Date of Consult Date of Consult DATE: 12/27/16 TIME: 10:31 Reason for Consult Reason for Consult: IBAN Referring Physician Referring Physician: JAVIER Identification/Chief Complaint Chief Complaint ABD PAIN AND CHILLS Problems: Source Source: Chart review, Patient History of Present Illness Reason for Visit: THIS IS A 76 YR OLD ADMITTED WITH COMPLAINTS OF ABD PAIN AND FEVERS AND CHILLS. HE IS NOTED TO HAVE AN INCREASE IN HIS LFT'S. NO CKD HX. HIS CR IS 2.2. NO HX OF ANY KIDNEY OR BLADDER SURGERIES HEMATURIA DYSURIA OR FREQUENCY. LACTIC ACID IS UP AND HE IS HYPOTENSIVE. BCX ARE POSITIVE. CT ABD AND PELVIS NOTED TO BE NEG FOR ACUTE FINDINGS Past Medical History Cardiovascular: HTN Pulmonary: No pertinent hx GI: No pertinent hx, Other Heme/Onc: No pertinent hx Hepatobiliary: Cholelithiasis, Other (stone) Musculoskeletal: Osteoarthritis Renal/: No pertinent hx Past Surgical History Past Surgical History: Cholecystectomy Family History Family History: Hypertension Social History Quit (1984) ALCOHOL: occassional (a glass of wine or a beer each week) Drugs: None Lives: with Family Current Problem List Problem List Problems Medical Problems: (1) Hyperbilirubinemia Status: Acute (2) Lactic acidosis Status: Acute (3) Severe sepsis Status: Acute Current Medications Current Medications Current Medications Sodium Chloride 1,000 ml @ 1,180 mls/hr Q51M IV Last administered on 21:03; Start 12/26/16 at 19:15; Stop 12/26/16 at 22:15; Status DC Hydrocortisone Sodium Succinate (Solu-CORTEF) 100 mg 1X ONCE IV Last administered on 12/26/16 20:36; Start 12/26/16 at 20:30; Stop 12/26/16 at 20:32 ; Status DC Vancomycin HCl (Vanco Per Pharmacy) 1 each PRN DAILY PRN MC SEE COMMENTS Last administered on 12/27/16 09:20; Start 12/26/16 at 20:30; Stop 12/27/16 at 09:40 ; Status DC Piperacillin Sod/ Tazobactam Sod (Zosyn Per Pharmacy) 1 each PRN DAILY PRN MC SEE COMMENTS; Start 12/26/16 at 20:30; Stop 12/27/16 at 09:15; Status DC Levofloxacin/ Dextrose (Levaquin Per Pharmacy) 1 each PRN DAILY PRN MC SEE COMMENTS; Start 12/26/16 at 20:30; Stop 12/27/16 at 09:15; Status DC Levofloxacin/ Dextrose 150 ml @ 100 mls/hr 1X ONCE IV Last administered on 21:03; Start 12/26/16 at 21:00; Stop 12/26/16 at 22:29; Status DC Piperacillin Sod/ Tazobactam Sod 3.375 gm/Sodium Chloride 50 ml @ 100 mls/hr 1X ONCE IV Last administered on 12/26/16 22:40; Start 12/26/16 at 21:00; Stop 12/26/16 at 21:29; Status DC Vancomycin HCl 2 gm/Sodium Chloride 500 ml @ 250 mls/hr 1X ONCE IV Last administered on 12/26/16 23:57; Start 12/26/16 at 22:00; Stop 12/26/16 at 23:59 ; Status DC Ondansetron HCl (Zofran) 4 mg PRN Q8HRS PRN IV NAUSEA/VOMITING; Start 12/26/16 at 21:15; Stop 12/27/16 at 21:14 Fentanyl Citrate (Fentanyl 2ml Vial) 50 mcg PRN Q2HR PRN IV SEVERE PAIN; Start 12/26/16 at 21:15; Stop 12/27/16 at 21:14 Sodium Chloride 1,000 ml @ 150 mls/hr Q6H40M IV Last administered on 04:00; Start 12/26/16 at 21:14; Stop 12/27/16 at 21:13 Acetaminophen (Tylenol) 650 mg PRN Q4HRS PRN PO FEVER; Start 12/26/16 at 21:15 ; Stop 12/27/16 at 21:14 Enoxaparin Sodium (Lovenox Per Pharmacy Prophylaxis Dosing) 1 each PRN DAILY PRN MC SEE COMMENTS; Start 12/26/16 at 22:45; Stop 12/27/16 at 09:15; Status DC Enoxaparin Sodium (Lovenox 40mg Syringe) 40 mg QHS SQ Last administered on 12/26 23:57; Start 12/26/16 at 23:00 Sodium Chloride 1,000 ml @ 1,000 mls/hr 1X ONCE IV Last administered on 23:26; Start 12/26/16 at 23:30; Stop 12/27/16 at 00:29; Status DC Norepinephrine Bitartrate 250 ml @ 0 mls/hr CONT PRN IV SEE I/O RECORD Last administered on 12/27/16 00:06; Start 12/26/16 at 23:30 Levofloxacin/ Dextrose 150 ml @ 100 mls/hr Q48H IV ; Start 12/28/16 at 21:00; Stop 12/28/16 at 21:00; Status DC Piperacillin Sod/ Tazobactam Sod 3.375 gm/Sodium Chloride 50 ml @ 100 mls/hr Q6HRS IV Last administered on 12/27/16 05:49; Start 12/27/16 at 06:00 Vancomycin HCl 1.75 gm/Sodium Chloride 500 ml @ 250 mls/hr Q24H IV ; Start at 22:00; Stop 12/27/16 at 22:00; Status DC Vancomycin HCl 1 each 1X ONCE MC ; Start 12/28/16 at 21:30; Stop 12/28/16 at 21 :30; Status DC Levofloxacin/ Dextrose 150 ml @ 100 mls/hr Q24H IV ; Start 12/27/16 at 21:00 Active Scripts Active No Active Prescriptions or Reported Medications Allergies Allergies: Coded Allergies: No Known Drug Allergies (Unverified , 10/07/14) ROS General: YES: Chills, Fatigue, Malaise, Appetite PSYCHOLOGICAL ROS: YES: Anxiety Eyes: Yes Decreased vision HEENT: YES: Heacaches Respiratory: YES: Cough Gastrointestinal: Yes Abdominal Pain, Yes Constipation Genitourinary: YES Other (NOCTURIA) Musculoskeletal: Yes Muscular Weakness Neurological: Yes Weakness Skin: Yes Dry Skin Physical Exam General: Alert, Oriented X3, Cooperative, No acute distress HEENT: Atraumatic, PERRLA, EOMI Lungs: Clear to auscultation Heart: Regular rate, Normal S1, Normal S2 Abdomen: Normal bowel sounds, Soft, No tenderness Extremities: No clubbing Neuro: Normal speech, Cranial nerves 3-12 NL Psych/Mental Status: Mental status NL, Mood NL MUSCULOSKELETAL: No deformity Vitals VITALS Vital Signs Date Time Temp Pulse Resp B/P (MAP) Pulse Ox O2 Delivery O2 Flow Rate FiO2 12/27/16 08:00 Room Air 12/27/16 08:00 97.7 52 18 116/67 (83) 96 97.7 Labs Labs Laboratory Tests Test 12/26/16 18:45 12/26/16 20:20 12/26/16 21:15 12/27/16 01:05 White Blood Count 9.5 x10^3/uL (4.0-11.0) 20.7 x10^3/uL (4.0-11.0) Red Blood Count 5.10 x10^6/uL (4.30-5.70) 4.35 x10^6/uL (4.30-5.70) Hemoglobin 16.6 g/dL (13.0-17.5) 13.7 g/dL (13.0-17.5) Hematocrit 47.3 % (39.0-53.0) 41.0 % (39.0-53.0) Mean Corpuscular Volume 93 fL (79-100) 94 fL (79-100) Mean Corpuscular Hemoglobin 32 pg (25-35) 31 pg (25-35) Mean Corpuscular Hemoglobin Concent 35 g/dL (31-37) 33 g/dL (31-37) Red Cell Distribution Width 13.6 % (11.5-14.5) 13.8 % (11.5-14.5) Platelet Count 161 x10^3/uL (140-400) 151 x10^3/uL (140-400) Neutrophils (%) (Auto) 98 % (31-73) 93 % (31-73) Lymphocytes (%) (Auto) 2 % (24-48) 2 % (24-48) Monocytes (%) (Auto) 1 % (0-9) 5 % (0-9) Eosinophils (%) (Auto) 0 % (0-3) 0 % (0-3) Basophils (%) (Auto) 0 % (0-3) 0 % (0-3) Neutrophils # (Auto) 9.3 x10^3uL (1.8-7.7) 19.3 x10^3uL (1.8-7.7) Lymphocytes # (Auto) 0.2 x10^3/uL (1.0-4.8) 0.3 x10^3/uL (1.0-4.8) Monocytes # (Auto) 0.1 x10^3/uL (0.0-1.1) 1.1 x10^3/uL (0.0-1.1) Eosinophils # (Auto) 0.0 x10^3/uL (0.0-0.7) 0.0 x10^3/uL (0.0-0.7) Basophils # (Auto) 0.0 x10^3/uL (0.0-0.2) 0.0 x10^3/uL (0.0-0.2) Segmented Neutrophils % 91 % (35-66) Lymphocytes % 3 % (24-48) Monocytes % 6 % (0-10) Platelet Estimate Decreased (ADEQUATE) Platelet Clumps, EDTA Present Large Platelets Occ Polychromasia Slight Ovalocytes Occ Sodium Level 138 mmol/L (136-145) 139 mmol/L (136-145) Potassium Level 3.6 mmol/L (3.5-5.1) 3.9 mmol/L (3.5-5.1) Chloride Level 101 mmol/L (98-107) 106 mmol/L (98-107) Carbon Dioxide Level 21 mmol/L (21-32) 19 mmol/L (21-32) Anion Gap 16 (6-14) 14 (6-14) Blood Urea Nitrogen 15 mg/dL (8-26) 16 mg/dL (8-26) Creatinine 2.2 mg/dL (0.7-1.3) 1.8 mg/dL (0.7-1.3) Estimated GFR (Cockcroft-Gault) 29.3 37.0 BUN/Creatinine Ratio 7 (6-20) Glucose Level 101 mg/dL (70-99) 141 mg/dL (70-99) Lactic Acid Level 6.2 mmol/L (0.4-2.0) 4.4 mmol/L (0.4-2.0) 3.1 mmol/L (0.4-2.0) Calcium Level 9.9 mg/dL (8.5-10.1) 7.9 mg/dL (8.5-10.1) Total Bilirubin 7.3 mg/dL (0.2-1.0) Aspartate Amino Transf (AST/SGOT) 61 U/L (15-37) Alanine Aminotransferase (ALT/SGPT) 58 U/L (16-63) Alkaline Phosphatase 260 U/L (46-116) Total Protein 7.5 g/dL (6.4-8.2) Albumin 3.0 g/dL (3.4-5.0) Albumin/Globulin Ratio 0.7 (1.0-1.7) Lipase 145 U/L (73-393) Procalcitonin 16.32 ng/mL (0.00-0.10) Urine Collection Type Unknown Urine Color [place] Urine Clarity Cloudy Urine pH 5.5 Urine Specific [place] 1.020 Urine Protein 100 mg/dL (NEG-TRACE) Urine Glucose (UA) Negative mg/dL (NEG) Urine Ketones (Stick) Negative mg/dL (NEG) Urine Blood Small (NEG) Urine Nitrite (NEG) Urine Bilirubin (NEG) Urine Urobilinogen Dipstick mg/dL (0.2 mg/dL) Urine Leukocyte Esterase Small (NEG) Urine RBC Occ /HPF (0-2) Urine WBC 5-10 /HPF (0-4) Urine Amorphous Sediment Present /HPF Urine Bacteria Few /HPF (0-FEW) Urine Hyaline Casts Many /HPF Urine Mucus Marked /LPF Test 12/27/16 06:00 White Blood Count 20.7 x10^3/uL (4.0-11.0) Red Blood Count 4.40 x10^6/uL (4.30-5.70) Hemoglobin 14.2 g/dL (13.0-17.5) Hematocrit 40.6 % (39.0-53.0) Mean Corpuscular Volume 92 fL (79-100) Mean Corpuscular Hemoglobin 32 pg (25-35) Mean Corpuscular Hemoglobin Concent 35 g/dL (31-37) Red Cell Distribution Width 14.3 % (11.5-14.5) Platelet Count 162 x10^3/uL (140-400) Erythrocyte Sedimentation Rate 39 (0-15) Prothrombin Time 15.5 SEC (11.7-14.0) Prothromb Time International Ratio 1.3 (0.8-1.1) Lactic Acid Level 1.6 mmol/L (0.4-2.0) Total Bilirubin 4.7 mg/dL (0.2-1.0) Direct Bilirubin 3.2 mg/dL (0.0-0.2) Aspartate Amino Transf (AST/SGOT) 50 U/L (15-37) Alanine Aminotransferase (ALT/SGPT) 51 U/L (16-63) Alkaline Phosphatase 146 U/L (46-116) Troponin I Quantitative 0.022 ng/mL (0.000-0.055) Total Protein 6.5 g/dL (6.4-8.2) Albumin 2.4 g/dL (3.4-5.0) Prostate Specific Antigen 3.90 ng/mL (0.00-4.00) Thyroid Stimulating Hormone (TSH) 0.306 uIU/mL (0.358-3.74) Laboratory Tests Test 12/26/16 18:45 12/26/16 20:20 12/26/16 21:15 12/27/16 01:05 White Blood Count 9.5 x10^3/uL (4.0-11.0) 20.7 x10^3/uL (4.0-11.0) Red Blood Count 5.10 x10^6/uL (4.30-5.70) 4.35 x10^6/uL (4.30-5.70) Hemoglobin 16.6 g/dL (13.0-17.5) 13.7 g/dL (13.0-17.5) Hematocrit 47.3 % (39.0-53.0) 41.0 % (39.0-53.0) Mean Corpuscular Volume 93 fL (79-100) 94 fL (79-100) Mean Corpuscular Hemoglobin 32 pg (25-35) 31 pg (25-35) Mean Corpuscular Hemoglobin Concent 35 g/dL (31-37) 33 g/dL (31-37) Red Cell Distribution Width 13.6 % (11.5-14.5) 13.8 % (11.5-14.5) Platelet Count 161 x10^3/uL (140-400) 151 x10^3/uL (140-400) Neutrophils (%) (Auto) 98 % (31-73) 93 % (31-73) Lymphocytes (%) (Auto) 2 % (24-48) 2 % (24-48) Monocytes (%) (Auto) 1 % (0-9) 5 % (0-9) Eosinophils (%) (Auto) 0 % (0-3) 0 % (0-3) Basophils (%) (Auto) 0 % (0-3) 0 % (0-3) Neutrophils # (Auto) 9.3 x10^3uL (1.8-7.7) 19.3 x10^3uL (1.8-7.7) Lymphocytes # (Auto) 0.2 x10^3/uL (1.0-4.8) 0.3 x10^3/uL (1.0-4.8) Monocytes # (Auto) 0.1 x10^3/uL (0.0-1.1) 1.1 x10^3/uL (0.0-1.1) Eosinophils # (Auto) 0.0 x10^3/uL (0.0-0.7) 0.0 x10^3/uL (0.0-0.7) Basophils # (Auto) 0.0 x10^3/uL (0.0-0.2) 0.0 x10^3/uL (0.0-0.2) Segmented Neutrophils % 91 % (35-66) Lymphocytes % 3 % (24-48) Monocytes % 6 % (0-10) Platelet Estimate Decreased (ADEQUATE) Platelet Clumps, EDTA Present Large Platelets Occ Polychromasia Slight Ovalocytes Occ Sodium Level 138 mmol/L (136-145) 139 mmol/L (136-145) Potassium Level 3.6 mmol/L (3.5-5.1) 3.9 mmol/L (3.5-5.1) Chloride Level 101 mmol/L (98-107) 106 mmol/L (98-107) Carbon Dioxide Level 21 mmol/L (21-32) 19 mmol/L (21-32) Anion Gap 16 (6-14) 14 (6-14) Blood Urea Nitrogen 15 mg/dL (8-26) 16 mg/dL (8-26) Creatinine 2.2 mg/dL (0.7-1.3) 1.8 mg/dL (0.7-1.3) Estimated GFR (Cockcroft-Gault) 29.3 37.0 BUN/Creatinine Ratio 7 (6-20) Glucose Level 101 mg/dL (70-99) 141 mg/dL (70-99) Lactic Acid Level 6.2 mmol/L (0.4-2.0) 4.4 mmol/L (0.4-2.0) 3.1 mmol/L (0.4-2.0) Calcium Level 9.9 mg/dL (8.5-10.1) 7.9 mg/dL (8.5-10.1) Total Bilirubin 7.3 mg/dL (0.2-1.0) Aspartate Amino Transf (AST/SGOT) 61 U/L (15-37) Alanine Aminotransferase (ALT/SGPT) 58 U/L (16-63) Alkaline Phosphatase 260 U/L (46-116) Total Protein 7.5 g/dL (6.4-8.2) Albumin 3.0 g/dL (3.4-5.0) Albumin/Globulin Ratio 0.7 (1.0-1.7) Lipase 145 U/L (73-393) Procalcitonin 16.32 ng/mL (0.00-0.10) Urine Collection Type Unknown Urine Color [place] Urine Clarity Cloudy Urine pH 5.5 Urine Specific [place] 1.020 Urine Protein 100 mg/dL (NEG-TRACE) Urine Glucose (UA) Negative mg/dL (NEG) Urine Ketones (Stick) Negative mg/dL (NEG) Urine Blood Small (NEG) Urine Nitrite (NEG) Urine Bilirubin (NEG) Urine Urobilinogen Dipstick mg/dL (0.2 mg/dL) Urine Leukocyte Esterase Small (NEG) Urine RBC Occ /HPF (0-2) Urine WBC 5-10 /HPF (0-4) Urine Amorphous Sediment Present /HPF Urine Bacteria Few /HPF (0-FEW) Urine Hyaline Casts Many /HPF Urine Mucus Marked /LPF Test 12/27/16 06:00 White Blood Count 20.7 x10^3/uL (4.0-11.0) Red Blood Count 4.40 x10^6/uL (4.30-5.70) Hemoglobin 14.2 g/dL (13.0-17.5) Hematocrit 40.6 % (39.0-53.0) Mean Corpuscular Volume 92 fL (79-100) Mean Corpuscular Hemoglobin 32 pg (25-35) Mean Corpuscular Hemoglobin Concent 35 g/dL (31-37) Red Cell Distribution Width 14.3 % (11.5-14.5) Platelet Count 162 x10^3/uL (140-400) Erythrocyte Sedimentation Rate 39 (0-15) Prothrombin Time 15.5 SEC (11.7-14.0) Prothromb Time International Ratio 1.3 (0.8-1.1) Lactic Acid Level 1.6 mmol/L (0.4-2.0) Total Bilirubin 4.7 mg/dL (0.2-1.0) Direct Bilirubin 3.2 mg/dL (0.0-0.2) Aspartate Amino Transf (AST/SGOT) 50 U/L (15-37) Alanine Aminotransferase (ALT/SGPT) 51 U/L (16-63) Alkaline Phosphatase 146 U/L (46-116) Troponin I Quantitative 0.022 ng/mL (0.000-0.055) Total Protein 6.5 g/dL (6.4-8.2) Albumin 2.4 g/dL (3.4-5.0) Prostate Specific Antigen 3.90 ng/mL (0.00-4.00) Thyroid Stimulating Hormone (TSH) 0.306 uIU/mL (0.358-3.74) Assessment/Plan Assessment/Plan IMP HYPOTENSION TYPE A LACTIC ACIDOSIS SEPSIS ELEVATED LFT'S IBAN-NO CKD PLAN ANTIBIOTICS GI EVAL AND TX IVF'S PRESSORS NEEDED LABS IN AM JENARO JEONG MD Dec 27, 2016 10:35
--- NOTE | 2016-12-27 10:53 | PDOC ---
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, mild acute renal failure, vasomotor nephropathy, Diverticulosis, no itis History of Present Illness History of Present Illness Seen in ICU Up in chair Levophed just turned off 30 mins ago SBP 100/.70, normal BP per him is systolic in 1teens NO abd pain No fevers WBC 20 ID on board Asks when he can t/o of ICU PLAN: Monitor in ICU for now since off levophed just now IF not hypotensive can t/o to med floor on tele FOllow ID recs re Antibiotics LAbs silvana, monitor for fevers and leukocytosis AMbulates ok Awaiting home meds if any Dw [employer]IAN Vitals Vitals Vital Signs Date Time Temp Pulse Resp B/P (MAP) Pulse Ox O2 Delivery O2 Flow Rate FiO2 12/27/16 08:00 Room Air 12/27/16 08:00 97.7 52 18 116/67 (83) 96 97.7 Physical Exam General: Alert, Oriented X3, Cooperative, No acute distress Heart: Regular rate, Normal S1, Normal S2 Abdomen: Normal bowel sounds, Soft, No tenderness Extremities: No clubbing Skin: No rashes, No significant lesion Labs LABS Laboratory Tests Test 12/26/16 18:45 12/26/16 20:20 12/26/16 21:15 12/27/16 01:05 White Blood Count 9.5 x10^3/uL (4.0-11.0) 20.7 x10^3/uL (4.0-11.0) Red Blood Count 5.10 x10^6/uL (4.30-5.70) 4.35 x10^6/uL (4.30-5.70) Hemoglobin 16.6 g/dL (13.0-17.5) 13.7 g/dL (13.0-17.5) Hematocrit 47.3 % (39.0-53.0) 41.0 % (39.0-53.0) Mean Corpuscular Volume 93 fL (79-100) 94 fL (79-100) Mean Corpuscular Hemoglobin 32 pg (25-35) 31 pg (25-35) Mean Corpuscular Hemoglobin Concent 35 g/dL (31-37) 33 g/dL (31-37) Red Cell Distribution Width 13.6 % (11.5-14.5) 13.8 % (11.5-14.5) Platelet Count 161 x10^3/uL (140-400) 151 x10^3/uL (140-400) Neutrophils (%) (Auto) 98 % (31-73) 93 % (31-73) Lymphocytes (%) (Auto) 2 % (24-48) 2 % (24-48) Monocytes (%) (Auto) 1 % (0-9) 5 % (0-9) Eosinophils (%) (Auto) 0 % (0-3) 0 % (0-3) Basophils (%) (Auto) 0 % (0-3) 0 % (0-3) Neutrophils # (Auto) 9.3 x10^3uL (1.8-7.7) 19.3 x10^3uL (1.8-7.7) Lymphocytes # (Auto) 0.2 x10^3/uL (1.0-4.8) 0.3 x10^3/uL (1.0-4.8) Monocytes # (Auto) 0.1 x10^3/uL (0.0-1.1) 1.1 x10^3/uL (0.0-1.1) Eosinophils # (Auto) 0.0 x10^3/uL (0.0-0.7) 0.0 x10^3/uL (0.0-0.7) Basophils # (Auto) 0.0 x10^3/uL (0.0-0.2) 0.0 x10^3/uL (0.0-0.2) Segmented Neutrophils % 91 % (35-66) Lymphocytes % 3 % (24-48) Monocytes % 6 % (0-10) Platelet Estimate Decreased (ADEQUATE) Platelet Clumps, EDTA Present Large Platelets Occ Polychromasia Slight Ovalocytes Occ Sodium Level 138 mmol/L (136-145) 139 mmol/L (136-145) Potassium Level 3.6 mmol/L (3.5-5.1) 3.9 mmol/L (3.5-5.1) Chloride Level 101 mmol/L (98-107) 106 mmol/L (98-107) Carbon Dioxide Level 21 mmol/L (21-32) 19 mmol/L (21-32) Anion Gap 16 (6-14) 14 (6-14) Blood Urea Nitrogen 15 mg/dL (8-26) 16 mg/dL (8-26) Creatinine 2.2 mg/dL (0.7-1.3) 1.8 mg/dL (0.7-1.3) Estimated GFR (Cockcroft-Gault) 29.3 37.0 BUN/Creatinine Ratio 7 (6-20) Glucose Level 101 mg/dL (70-99) 141 mg/dL (70-99) Lactic Acid Level 6.2 mmol/L (0.4-2.0) 4.4 mmol/L (0.4-2.0) 3.1 mmol/L (0.4-2.0) Calcium Level 9.9 mg/dL (8.5-10.1) 7.9 mg/dL (8.5-10.1) Total Bilirubin 7.3 mg/dL (0.2-1.0) Aspartate Amino Transf (AST/SGOT) 61 U/L (15-37) Alanine Aminotransferase (ALT/SGPT) 58 U/L (16-63) Alkaline Phosphatase 260 U/L (46-116) Total Protein 7.5 g/dL (6.4-8.2) Albumin 3.0 g/dL (3.4-5.0) Albumin/Globulin Ratio 0.7 (1.0-1.7) Lipase 145 U/L (73-393) Procalcitonin 16.32 ng/mL (0.00-0.10) Urine Collection Type Unknown Urine Color Cuming Urine Clarity Cloudy Urine pH 5.5 Urine Specific [place] 1.020 Urine Protein 100 mg/dL (NEG-TRACE) Urine Glucose (UA) Negative mg/dL (NEG) Urine Ketones (Stick) Negative mg/dL (NEG) Urine Blood Small (NEG) Urine Nitrite (NEG) Urine Bilirubin (NEG) Urine Urobilinogen Dipstick mg/dL (0.2 mg/dL) Urine Leukocyte Esterase Small (NEG) Urine RBC Occ /HPF (0-2) Urine WBC 5-10 /HPF (0-4) Urine Amorphous Sediment Present /HPF Urine Bacteria Few /HPF (0-FEW) Urine Hyaline Casts Many /HPF Urine Mucus Marked /LPF Test 12/27/16 06:00 White Blood Count 20.7 x10^3/uL (4.0-11.0) Red Blood Count 4.40 x10^6/uL (4.30-5.70) Hemoglobin 14.2 g/dL (13.0-17.5) Hematocrit 40.6 % (39.0-53.0) Mean Corpuscular Volume 92 fL (79-100) Mean Corpuscular Hemoglobin 32 pg (25-35) Mean Corpuscular Hemoglobin Concent 35 g/dL (31-37) Red Cell Distribution Width 14.3 % (11.5-14.5) Platelet Count 162 x10^3/uL (140-400) Erythrocyte Sedimentation Rate 39 (0-15) Prothrombin Time 15.5 SEC (11.7-14.0) Prothromb Time International Ratio 1.3 (0.8-1.1) Lactic Acid Level 1.6 mmol/L (0.4-2.0) Total Bilirubin 4.7 mg/dL (0.2-1.0) Direct Bilirubin 3.2 mg/dL (0.0-0.2) Aspartate Amino Transf (AST/SGOT) 50 U/L (15-37) Alanine Aminotransferase (ALT/SGPT) 51 U/L (16-63) Alkaline Phosphatase 146 U/L (46-116) Troponin I Quantitative 0.022 ng/mL (0.000-0.055) Total Protein 6.5 g/dL (6.4-8.2) Albumin 2.4 g/dL (3.4-5.0) Prostate Specific Antigen 3.90 ng/mL (0.00-4.00) Thyroid Stimulating Hormone (TSH) 0.306 uIU/mL (0.358-3.74) Review of Systems Review of Systems denies 14 pt system reviewed Assessment and Plan Assessmemt and Plan Problems Medical Problems: (1) Hyperbilirubinemia Status: Acute (2) Lactic acidosis Status: Acute (3) Severe sepsis Status: Acute Problems: Comment Review of Relevant I have reviewed the following items jadon (where applicable) has been applied. Labs Laboratory Tests Test 12/26/16 18:45 12/26/16 20:20 12/26/16 21:15 12/27/16 01:05 White Blood Count 9.5 x10^3/uL (4.0-11.0) 20.7 x10^3/uL (4.0-11.0) Red Blood Count 5.10 x10^6/uL (4.30-5.70) 4.35 x10^6/uL (4.30-5.70) Hemoglobin 16.6 g/dL (13.0-17.5) 13.7 g/dL (13.0-17.5) Hematocrit 47.3 % (39.0-53.0) 41.0 % (39.0-53.0) Mean Corpuscular Volume 93 fL (79-100) 94 fL (79-100) Mean Corpuscular Hemoglobin 32 pg (25-35) 31 pg (25-35) Mean Corpuscular Hemoglobin Concent 35 g/dL (31-37) 33 g/dL (31-37) Red Cell Distribution Width 13.6 % (11.5-14.5) 13.8 % (11.5-14.5) Platelet Count 161 x10^3/uL (140-400) 151 x10^3/uL (140-400) Neutrophils (%) (Auto) 98 % (31-73) 93 % (31-73) Lymphocytes (%) (Auto) 2 % (24-48) 2 % (24-48) Monocytes (%) (Auto) 1 % (0-9) 5 % (0-9) Eosinophils (%) (Auto) 0 % (0-3) 0 % (0-3) Basophils (%) (Auto) 0 % (0-3) 0 % (0-3) Neutrophils # (Auto) 9.3 x10^3uL (1.8-7.7) 19.3 x10^3uL (1.8-7.7) Lymphocytes # (Auto) 0.2 x10^3/uL (1.0-4.8) 0.3 x10^3/uL (1.0-4.8) Monocytes # (Auto) 0.1 x10^3/uL (0.0-1.1) 1.1 x10^3/uL (0.0-1.1) Eosinophils # (Auto) 0.0 x10^3/uL (0.0-0.7) 0.0 x10^3/uL (0.0-0.7) Basophils # (Auto) 0.0 x10^3/uL (0.0-0.2) 0.0 x10^3/uL (0.0-0.2) Segmented Neutrophils % 91 % (35-66) Lymphocytes % 3 % (24-48) Monocytes % 6 % (0-10) Platelet Estimate Decreased (ADEQUATE) Platelet Clumps, EDTA Present Large Platelets Occ Polychromasia Slight Ovalocytes Occ Sodium Level 138 mmol/L (136-145) 139 mmol/L (136-145) Potassium Level 3.6 mmol/L (3.5-5.1) 3.9 mmol/L (3.5-5.1) Chloride Level 101 mmol/L (98-107) 106 mmol/L (98-107) Carbon Dioxide Level 21 mmol/L (21-32) 19 mmol/L (21-32) Anion Gap 16 (6-14) 14 (6-14) Blood Urea Nitrogen 15 mg/dL (8-26) 16 mg/dL (8-26) Creatinine 2.2 mg/dL (0.7-1.3) 1.8 mg/dL (0.7-1.3) Estimated GFR (Cockcroft-Gault) 29.3 37.0 BUN/Creatinine Ratio 7 (6-20) Glucose Level 101 mg/dL (70-99) 141 mg/dL (70-99) Lactic Acid Level 6.2 mmol/L (0.4-2.0) 4.4 mmol/L (0.4-2.0) 3.1 mmol/L (0.4-2.0) Calcium Level 9.9 mg/dL (8.5-10.1) 7.9 mg/dL (8.5-10.1) Total Bilirubin 7.3 mg/dL (0.2-1.0) Aspartate Amino Transf (AST/SGOT) 61 U/L (15-37) Alanine Aminotransferase (ALT/SGPT) 58 U/L (16-63) Alkaline Phosphatase 260 U/L (46-116) Total Protein 7.5 g/dL (6.4-8.2) Albumin 3.0 g/dL (3.4-5.0) Albumin/Globulin Ratio 0.7 (1.0-1.7) Lipase 145 U/L (73-393) Procalcitonin 16.32 ng/mL (0.00-0.10) Urine Collection Type Unknown Urine Color Cuming Urine Clarity Cloudy Urine pH 5.5 Urine Specific [place] 1.020 Urine Protein 100 mg/dL (NEG-TRACE) Urine Glucose (UA) Negative mg/dL (NEG) Urine Ketones (Stick) Negative mg/dL (NEG) Urine Blood Small (NEG) Urine Nitrite (NEG) Urine Bilirubin (NEG) Urine Urobilinogen Dipstick mg/dL (0.2 mg/dL) Urine Leukocyte Esterase Small (NEG) Urine RBC Occ /HPF (0-2) Urine WBC 5-10 /HPF (0-4) Urine Amorphous Sediment Present /HPF Urine Bacteria Few /HPF (0-FEW) Urine Hyaline Casts Many /HPF Urine Mucus Marked /LPF Test 12/27/16 06:00 White Blood Count 20.7 x10^3/uL (4.0-11.0) Red Blood Count 4.40 x10^6/uL (4.30-5.70) Hemoglobin 14.2 g/dL (13.0-17.5) Hematocrit 40.6 % (39.0-53.0) Mean Corpuscular Volume 92 fL (79-100) Mean Corpuscular Hemoglobin 32 pg (25-35) Mean Corpuscular Hemoglobin Concent 35 g/dL (31-37) Red Cell Distribution Width 14.3 % (11.5-14.5) Platelet Count 162 x10^3/uL (140-400) Erythrocyte Sedimentation Rate 39 (0-15) Prothrombin Time 15.5 SEC (11.7-14.0) Prothromb Time International Ratio 1.3 (0.8-1.1) Lactic Acid Level 1.6 mmol/L (0.4-2.0) Total Bilirubin 4.7 mg/dL (0.2-1.0) Direct Bilirubin 3.2 mg/dL (0.0-0.2) Aspartate Amino Transf (AST/SGOT) 50 U/L (15-37) Alanine Aminotransferase (ALT/SGPT) 51 U/L (16-63) Alkaline Phosphatase 146 U/L (46-116) Troponin I Quantitative 0.022 ng/mL (0.000-0.055) Total Protein 6.5 g/dL (6.4-8.2) Albumin 2.4 g/dL (3.4-5.0) Prostate Specific Antigen 3.90 ng/mL (0.00-4.00) Thyroid Stimulating Hormone (TSH) 0.306 uIU/mL (0.358-3.74) Laboratory Tests Test 12/26/16 18:45 12/26/16 20:20 12/26/16 21:15 12/27/16 01:05 White Blood Count 9.5 x10^3/uL (4.0-11.0) 20.7 x10^3/uL (4.0-11.0) Red Blood Count 5.10 x10^6/uL (4.30-5.70) 4.35 x10^6/uL (4.30-5.70) Hemoglobin 16.6 g/dL (13.0-17.5) 13.7 g/dL (13.0-17.5) Hematocrit 47.3 % (39.0-53.0) 41.0 % (39.0-53.0) Mean Corpuscular Volume 93 fL (79-100) 94 fL (79-100) Mean Corpuscular Hemoglobin 32 pg (25-35) 31 pg (25-35) Mean Corpuscular Hemoglobin Concent 35 g/dL (31-37) 33 g/dL (31-37) Red Cell Distribution Width 13.6 % (11.5-14.5) 13.8 % (11.5-14.5) Platelet Count 161 x10^3/uL (140-400) 151 x10^3/uL (140-400) Neutrophils (%) (Auto) 98 % (31-73) 93 % (31-73) Lymphocytes (%) (Auto) 2 % (24-48) 2 % (24-48) Monocytes (%) (Auto) 1 % (0-9) 5 % (0-9) Eosinophils (%) (Auto) 0 % (0-3) 0 % (0-3) Basophils (%) (Auto) 0 % (0-3) 0 % (0-3) Neutrophils # (Auto) 9.3 x10^3uL (1.8-7.7) 19.3 x10^3uL (1.8-7.7) Lymphocytes # (Auto) 0.2 x10^3/uL (1.0-4.8) 0.3 x10^3/uL (1.0-4.8) Monocytes # (Auto) 0.1 x10^3/uL (0.0-1.1) 1.1 x10^3/uL (0.0-1.1) Eosinophils # (Auto) 0.0 x10^3/uL (0.0-0.7) 0.0 x10^3/uL (0.0-0.7) Basophils # (Auto) 0.0 x10^3/uL (0.0-0.2) 0.0 x10^3/uL (0.0-0.2) Segmented Neutrophils % 91 % (35-66) Lymphocytes % 3 % (24-48) Monocytes % 6 % (0-10) Platelet Estimate Decreased (ADEQUATE) Platelet Clumps, EDTA Present Large Platelets Occ Polychromasia Slight Ovalocytes Occ Sodium Level 138 mmol/L (136-145) 139 mmol/L (136-145) Potassium Level 3.6 mmol/L (3.5-5.1) 3.9 mmol/L (3.5-5.1) Chloride Level 101 mmol/L (98-107) 106 mmol/L (98-107) Carbon Dioxide Level 21 mmol/L (21-32) 19 mmol/L (21-32) Anion Gap 16 (6-14) 14 (6-14) Blood Urea Nitrogen 15 mg/dL (8-26) 16 mg/dL (8-26) Creatinine 2.2 mg/dL (0.7-1.3) 1.8 mg/dL (0.7-1.3) Estimated GFR (Cockcroft-Gault) 29.3 37.0 BUN/Creatinine Ratio 7 (6-20) Glucose Level 101 mg/dL (70-99) 141 mg/dL (70-99) Lactic Acid Level 6.2 mmol/L (0.4-2.0) 4.4 mmol/L (0.4-2.0) 3.1 mmol/L (0.4-2.0) Calcium Level 9.9 mg/dL (8.5-10.1) 7.9 mg/dL (8.5-10.1) Total Bilirubin 7.3 mg/dL (0.2-1.0) Aspartate Amino Transf (AST/SGOT) 61 U/L (15-37) Alanine Aminotransferase (ALT/SGPT) 58 U/L (16-63) Alkaline Phosphatase 260 U/L (46-116) Total Protein 7.5 g/dL (6.4-8.2) Albumin 3.0 g/dL (3.4-5.0) Albumin/Globulin Ratio 0.7 (1.0-1.7) Lipase 145 U/L (73-393) Procalcitonin 16.32 ng/mL (0.00-0.10) Urine Collection Type Unknown Urine Color Cuming Urine Clarity Cloudy Urine pH 5.5 Urine Specific [place] 1.020 Urine Protein 100 mg/dL (NEG-TRACE) Urine Glucose (UA) Negative mg/dL (NEG) Urine Ketones (Stick) Negative mg/dL (NEG) Urine Blood Small (NEG) Urine Nitrite (NEG) Urine Bilirubin (NEG) Urine Urobilinogen Dipstick mg/dL (0.2 mg/dL) Urine Leukocyte Esterase Small (NEG) Urine RBC Occ /HPF (0-2) Urine WBC 5-10 /HPF (0-4) Urine Amorphous Sediment Present /HPF Urine Bacteria Few /HPF (0-FEW) Urine Hyaline Casts Many /HPF Urine Mucus Marked /LPF Test 12/27/16 06:00 White Blood Count 20.7 x10^3/uL (4.0-11.0) Red Blood Count 4.40 x10^6/uL (4.30-5.70) Hemoglobin 14.2 g/dL (13.0-17.5) Hematocrit 40.6 % (39.0-53.0) Mean Corpuscular Volume 92 fL (79-100) Mean Corpuscular Hemoglobin 32 pg (25-35) Mean Corpuscular Hemoglobin Concent 35 g/dL (31-37) Red Cell Distribution Width 14.3 % (11.5-14.5) Platelet Count 162 x10^3/uL (140-400) Erythrocyte Sedimentation Rate 39 (0-15) Prothrombin Time 15.5 SEC (11.7-14.0) Prothromb Time International Ratio 1.3 (0.8-1.1) Lactic Acid Level 1.6 mmol/L (0.4-2.0) Total Bilirubin 4.7 mg/dL (0.2-1.0) Direct Bilirubin 3.2 mg/dL (0.0-0.2) Aspartate Amino Transf (AST/SGOT) 50 U/L (15-37) Alanine Aminotransferase (ALT/SGPT) 51 U/L (16-63) Alkaline Phosphatase 146 U/L (46-116) Troponin I Quantitative 0.022 ng/mL (0.000-0.055) Total Protein 6.5 g/dL (6.4-8.2) Albumin 2.4 g/dL (3.4-5.0) Prostate Specific Antigen 3.90 ng/mL (0.00-4.00) Thyroid Stimulating Hormone (TSH) 0.306 uIU/mL (0.358-3.74) Microbiology 12/26/16 Blood Culture - Final, Complete Medications Current Medications Sodium Chloride 1,000 ml @ 1,180 mls/hr Q51M IV Last administered on 21:03; Start 12/26/16 at 19:15; Stop 12/26/16 at 22:15; Status DC Hydrocortisone Sodium Succinate (Solu-CORTEF) 100 mg 1X ONCE IV Last administered on 12/26/16 20:36; Start 12/26/16 at 20:30; Stop 12/26/16 at 20:32 ; Status DC Vancomycin HCl (Vanco Per Pharmacy) 1 each PRN DAILY PRN MC SEE COMMENTS Last administered on 12/27/16 09:20; Start 12/26/16 at 20:30; Stop 12/27/16 at 09:40 ; Status DC Piperacillin Sod/ Tazobactam Sod (Zosyn Per Pharmacy) 1 each PRN DAILY PRN MC SEE COMMENTS; Start 12/26/16 at 20:30; Stop 12/27/16 at 09:15; Status DC Levofloxacin/ Dextrose (Levaquin Per Pharmacy) 1 each PRN DAILY PRN MC SEE COMMENTS; Start 12/26/16 at 20:30; Stop 12/27/16 at 09:15; Status DC Levofloxacin/ Dextrose 150 ml @ 100 mls/hr 1X ONCE IV Last administered on 21:03; Start 12/26/16 at 21:00; Stop 12/26/16 at 22:29; Status DC Piperacillin Sod/ Tazobactam Sod 3.375 gm/Sodium Chloride 50 ml @ 100 mls/hr 1X ONCE IV Last administered on 12/26/16 22:40; Start 12/26/16 at 21:00; Stop 12/26/16 at 21:29; Status DC Vancomycin HCl 2 gm/Sodium Chloride 500 ml @ 250 mls/hr 1X ONCE IV Last administered on 12/26/16 23:57; Start 12/26/16 at 22:00; Stop 12/26/16 at 23:59 ; Status DC Ondansetron HCl (Zofran) 4 mg PRN Q8HRS PRN IV NAUSEA/VOMITING; Start 12/26/16 at 21:15; Stop 12/27/16 at 21:14 Fentanyl Citrate (Fentanyl 2ml Vial) 50 mcg PRN Q2HR PRN IV SEVERE PAIN; Start 12/26/16 at 21:15; Stop 12/27/16 at 21:14 Sodium Chloride 1,000 ml @ 150 mls/hr Q6H40M IV Last administered on 10:40; Start 12/26/16 at 21:14; Stop 12/27/16 at 21:13 Acetaminophen (Tylenol) 650 mg PRN Q4HRS PRN PO FEVER; Start 12/26/16 at 21:15 ; Stop 12/27/16 at 21:14 Enoxaparin Sodium (Lovenox Per Pharmacy Prophylaxis Dosing) 1 each PRN DAILY PRN MC SEE COMMENTS; Start 12/26/16 at 22:45; Stop 12/27/16 at 09:15; Status DC Enoxaparin Sodium (Lovenox 40mg Syringe) 40 mg QHS SQ Last administered on 12/26 23:57; Start 12/26/16 at 23:00 Sodium Chloride 1,000 ml @ 1,000 mls/hr 1X ONCE IV Last administered on 23:26; Start 12/26/16 at 23:30; Stop 12/27/16 at 00:29; Status DC Norepinephrine Bitartrate 250 ml @ 0 mls/hr CONT PRN IV SEE I/O RECORD Last administered on 6/27/17at 00:06; Start 12/26/16 at 23:30 Levofloxacin/ Dextrose 150 ml @ 100 mls/hr Q48H IV ; Start 12/28/16 at 21:00; Stop 12/28/16 at 21:00; Status DC Piperacillin Sod/ Tazobactam Sod 3.375 gm/Sodium Chloride 50 ml @ 100 mls/hr Q6HRS IV Last administered on 12/27/16t 05:49; Start 12/27/16 at 06:00 Vancomycin HCl 1.75 gm/Sodium Chloride 500 ml @ 250 mls/hr Q24H IV ; Start at 22:00; Stop 12/27/16 at 22:00; Status DC Vancomycin HCl 1 each 1X ONCE MC ; Start 12/28/16 at 21:30; Stop 12/28/16 at 21 :30; Status DC Levofloxacin/ Dextrose 150 ml @ 100 mls/hr Q24H IV ; Start 12/27/16 at 21:00 Active Scripts Active No Active Prescriptions or Reported Medications Vitals/I & O Vital Sign - Last 24 Hours 12/26/16 12/26/16 12/26/16 12/26/16 18:40 18:48 20:00 20:15 Temp 97.9 97.9 Pulse 117 110 99 96 Resp B/P (MAP) 84/61 (69) 88/60 (69) 96/58 (71) 98/60 (73) Pulse Ox 96 93 96 94 O2 Delivery Room Air Room Air Room Air Room Air 12/26/16 12/26/16 12/26/16 12/26/16 20:30 20:37 20:45 21:00 Temp 98.2 98.2 Pulse 109 109 102 Resp 24 18 22 B/P (MAP) 113/65 (81) 119/70 (86) 116/74 (88) Pulse Ox 97 95 93 O2 Delivery Room Air Room Air Room Air 12/26/16 12/26/16 12/26/16 12/26/16 21:15 21:37 22:10 22:45 Temp 98.3 98.3 Pulse 107 104 103 104 Resp 22 20 26 B/P (MAP) 114/75 (88) 117/71 (86) 96/60 (72) 91/64 (73) Pulse Ox 94 95 93 94 O2 Delivery Room Air Room Air Room Air Room Air 12/26/16 12/26/16 12/26/16 12/26/16 23:00 23:00 23:15 23:30 Pulse 100 98 96 Resp 21 24 25 B/P (MAP) 82/58 (66) 96/66 (76) 94/68 (77) Pulse Ox 94 93 96 O2 Delivery Room Air Room Air Room Air Room Air 12/26/16 12/27/16 12/27/16 12/27/16 23:45 00:00 00:15 00:30 Pulse 90 88 Resp 14 17 B/P (MAP) 80/58 (65) 75/52 (60) 81/58 (66) 90/57 (68) Pulse Ox 95 94 O2 Delivery Room Air Room Air 12/27/16 12/27/16 12/27/16 12/27/16 01:00 02:00 02:15 02:45 Pulse 74 68 Resp 18 19 B/P (MAP) 105/72 (83) 84/55 (65) 90/58 (69) 94/61 (72) Pulse Ox 97 95 O2 Delivery Room Air Room Air 12/27/16 12/27/16 12/27/16 12/27/16 03:00 04:00 04:00 05:00 Temp 97.9 97.9 Pulse 58 56 56 Resp 18 21 20 B/P (MAP) 112/67 (82) 109/69 (82) 99/69 (79) Pulse Ox 96 96 96 O2 Delivery Room Air Room Air Room Air Room Air 12/27/16 12/27/16 12/27/16 12/27/16 06:00 06:15 08:00 08:00 Temp 97.7 97.7 Pulse 59 52 Resp 16 18 B/P (MAP) 118/79 (92) 95/68 (77) 116/67 (83) Pulse Ox 98 96 O2 Delivery Room Air Room Air Room Air Intake and Output 12/26/16 12/26/16 12/27/16 15:00 23:00 07:00 Intake Total 3690 ml 3325 ml Output Total 300 ml Balance 3690 ml 3025 ml KATJA GODINEZ MD Dec 27, 2016 10:53
[2016-12-27 11:04] LABS: PLT ESTIMATE ADEQUATE (ADEQUATE)
[2016-12-27 17:18] LABS: HEP A IGM ABDY Negative (Negative)
[2016-12-27] MEDS: ENOXAPARIN 40 MG/0.4 ML SYRINGE. SQ SCH (20:58)
[2016-12-27] MEDS ORDERED: VANCOMYCIN 1.75 GM in IV NORMAL SALINE 500ML BAG 500 ML IV SCH (22:00)
[2016-12-28] VITALS (14 sets, daily range): BP systolic 94–128; BP diastolic 62–95
[2016-12-28 05:16] LABS: BASO % 0 % (0-3); EOS % 1 % (0-3); HEMATOCRIT 37.7 % (39.0-53.0); HEMOGLOBIN 12.8 g/dL (13.0-17.5); LYMPH # 0.5 x10^3/uL (1.0-4.8); LYMPH % 5 % (24-48); MEAN CORPUSCULAR HEMOGLOBIN 32 pg (25-35); MEAN CORPUSCULAR HGB CONC 34 g/dL (31-37); MEAN CORPUSCULAR VOLUME 94 fL (79-100); MONO % 14 % (0-9); NEUT % 80 % (31-73); PLATELET COUNT 116 x10^3/uL (140-400); RED BLOOD COUNT 4.01 x10^6/uL (4.30-5.70); RED CELL DISTRIBUTION WIDTH 14.1 % (11.5-14.5); WHITE BLOOD COUNT 9.2 x10^3/uL (4.0-11.0)
[2016-12-28 05:44] LABS: ALBUMIN/GLOBULIN RATIO 0.6 (1.0-1.7); CALCIUM 8.3 mg/dL (8.5-10.1); CREATININE 1.3 mg/dL (0.7-1.3); GFR 53.8; POTASSIUM 3.7 mmol/L (3.5-5.1); TOTAL BILIRUBIN 2.2 mg/dL (0.2-1.0); TOTAL PROTEIN 5.5 g/dL (6.4-8.2)
[2016-12-28] MEDS: PIPERACILLIN/TAZOBACTAM 3.375 GM in IV NORMAL SALINE 50ML 50 ML IV SCH ×4 (05:52→23:22)
--- NOTE | 2016-12-28 08:52 | PDOC ---
Infectious Disease Note Subjective Subjective Feeling better. Hungry ROS ROS GEN: Denies fevers, chills, sweats HEENT: Denies blurred vision, sore throat CV: Denies chest pain RESP: Denies shortness of air, cough GI: Denies n/v/d NEURO: Denies confusion, dizziness MSK: Denies weakness, joint pain/swelling Vital Sign Vital Signs Vital Signs Date Time Temp Pulse Resp B/P (MAP) Pulse Ox O2 Delivery O2 Flow Rate FiO2 12/28/16 06:00 72 106/75 (85) 95 Room Air 12/28/16 05:00 18 12/28/16 04:00 98.4 98.4 Physical Exam PHYSICAL EXAM GENERAL: NAD, Alert, in chair HEENT: PERRL, OC/OP- clear NECK: Supple, no JVD, no LN LUNGS: Clear HEART: S1S2, no gallop, no murmur ABD: Soft, NT, no organomegaly, no rebound EXT: No edema, no cyanosis 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, 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 x 3, no focal neurologic deficit SKIN: No rash IV: ok Labs Lab Laboratory Tests Test 12/28/16 04:54 White Blood Count 9.2 x10^3/uL (4.0-11.0) Red Blood Count 4.01 x10^6/uL (4.30-5.70) Hemoglobin 12.8 g/dL (13.0-17.5) Hematocrit 37.7 % (39.0-53.0) Mean Corpuscular Volume 94 fL (79-100) Mean Corpuscular Hemoglobin 32 pg (25-35) Mean Corpuscular Hemoglobin Concent 34 g/dL (31-37) Red Cell Distribution Width 14.1 % (11.5-14.5) Platelet Count 116 x10^3/uL (140-400) Neutrophils (%) (Auto) 80 % (31-73) Lymphocytes (%) (Auto) 5 % (24-48) Monocytes (%) (Auto) 14 % (0-9) Eosinophils (%) (Auto) 1 % (0-3) Basophils (%) (Auto) 0 % (0-3) Neutrophils # (Auto) 7.3 x10^3uL (1.8-7.7) Lymphocytes # (Auto) 0.5 x10^3/uL (1.0-4.8) Monocytes # (Auto) 1.3 x10^3/uL (0.0-1.1) Eosinophils # (Auto) 0.1 x10^3/uL (0.0-0.7) Basophils # (Auto) 0.0 x10^3/uL (0.0-0.2) Sodium Level 140 mmol/L (136-145) Potassium Level 3.7 mmol/L (3.5-5.1) Chloride Level 109 mmol/L (98-107) Carbon Dioxide Level 21 mmol/L (21-32) Anion Gap 10 (6-14) Blood Urea Nitrogen 20 mg/dL (8-26) Creatinine 1.3 mg/dL (0.7-1.3) Estimated GFR (Cockcroft-Gault) 53.8 BUN/Creatinine Ratio 15 (6-20) Glucose Level 94 mg/dL (70-99) Calcium Level 8.3 mg/dL (8.5-10.1) Total Bilirubin 2.2 mg/dL (0.2-1.0) Aspartate Amino Transf (AST/SGOT) 54 U/L (15-37) Alanine Aminotransferase (ALT/SGPT) 49 U/L (16-63) Alkaline Phosphatase 129 U/L (46-116) Total Protein 5.5 g/dL (6.4-8.2) Albumin 2.0 g/dL (3.4-5.0) Albumin/Globulin Ratio 0.6 (1.0-1.7) Objective Assessment GNR Sepsis POA - hypotension/lactic acidosis. Off levophed Leukocytosis - better IBAN - better ? UTI Transaminitis - ? from sepsis Low TSH Plan Plan of Care Cont abx Check T3/T4 F/u labs in am and cults Await MRCP RUMA CORNELL MD Dec 28, 2016 08:52
[2016-12-28 09:52] LABS: FREE T4 1.29 ng/dL (0.76-1.46)
--- NOTE | 2016-12-28 10:26 | RAD ---
MRI abdomen without contrast and MRCP: Clinical indications: Recurrent hyperbilirubinemia. History of cholecystectomy.. Technique: T1 and T2 weighted MRI sequences of the abdomen was performed in the axial and coronal planes. In phase and out of phase MRI sequences were performed. Using a single shot heavily T2-weighted fast spin-echo and MIP algorithm, 3-D reconstructed MRCP was generated. Findings: MRI abdomen:: The liver is homogeneous in appearance. The spleen is homogeneous in appearance. The spleen measures 13.5 cm in length which is mildly enlarged. The pancreas is homogeneous in appearance. The gallbladder is surgically absent. No adrenal mass is evident. Bilateral renal cysts are seen. No hydronephrosis is evident. No focal aneurysmal dilatation of the abdominal aorta is seen. No enlarged abdominal lymphadenopathy is seen. No ascites is seen. MRCP: No abnormal dilatation of the intrahepatic or extrahepatic biliary tree is seen. No filling defects are seen within the extrahepatic biliary tree. No stricture is seen. No abnormal dilatation of the pancreatic duct is seen. Impression: 1. Mild splenomegaly. Bilateral renal cysts. 2. Unremarkable MRCP.
--- NOTE | 2016-12-28 11:41 | PDOC ---
Renal-Progress Notes Subjective Notes Notes FEELING BETTER History of Present Illness Hx of present illness BETTER Vitals Vitals Vital Signs Date Time Temp Pulse Resp B/P (MAP) Pulse Ox O2 Delivery O2 Flow Rate FiO2 12/28/16 09:00 55 18 99/67 (78) 96 Room Air 12/28/16 08:00 98.7 98.7 Weight Weight [ ] I.O. Intake and Output Intake and Output 12/28/16 07:00 Intake Total 3690 ml Output Total 2100 ml Balance 1590 ml Intake Oral 1680 ml IV Total 2010 ml Output Urine Total 2100 ml # Bowel Movements 2 Labs Labs Laboratory Tests Test 12/28/16 04:54 White Blood Count 9.2 x10^3/uL (4.0-11.0) Red Blood Count 4.01 x10^6/uL (4.30-5.70) Hemoglobin 12.8 g/dL (13.0-17.5) Hematocrit 37.7 % (39.0-53.0) Mean Corpuscular Volume 94 fL (79-100) Mean Corpuscular Hemoglobin 32 pg (25-35) Mean Corpuscular Hemoglobin Concent 34 g/dL (31-37) Red Cell Distribution Width 14.1 % (11.5-14.5) Platelet Count 116 x10^3/uL (140-400) Neutrophils (%) (Auto) 80 % (31-73) Lymphocytes (%) (Auto) 5 % (24-48) Monocytes (%) (Auto) 14 % (0-9) Eosinophils (%) (Auto) 1 % (0-3) Basophils (%) (Auto) 0 % (0-3) Neutrophils # (Auto) 7.3 x10^3uL (1.8-7.7) Lymphocytes # (Auto) 0.5 x10^3/uL (1.0-4.8) Monocytes # (Auto) 1.3 x10^3/uL (0.0-1.1) Eosinophils # (Auto) 0.1 x10^3/uL (0.0-0.7) Basophils # (Auto) 0.0 x10^3/uL (0.0-0.2) Sodium Level 140 mmol/L (136-145) Potassium Level 3.7 mmol/L (3.5-5.1) Chloride Level 109 mmol/L (98-107) Carbon Dioxide Level 21 mmol/L (21-32) Anion Gap 10 (6-14) Blood Urea Nitrogen 20 mg/dL (8-26) Creatinine 1.3 mg/dL (0.7-1.3) Estimated GFR (Cockcroft-Gault) 53.8 BUN/Creatinine Ratio 15 (6-20) Glucose Level 94 mg/dL (70-99) Calcium Level 8.3 mg/dL (8.5-10.1) Total Bilirubin 2.2 mg/dL (0.2-1.0) Aspartate Amino Transf (AST/SGOT) 54 U/L (15-37) Alanine Aminotransferase (ALT/SGPT) 49 U/L (16-63) Alkaline Phosphatase 129 U/L (46-116) Total Protein 5.5 g/dL (6.4-8.2) Albumin 2.0 g/dL (3.4-5.0) Albumin/Globulin Ratio 0.6 (1.0-1.7) Free Thyroxine 1.29 ng/dL (0.76-1.46) Free Triiodothyronine (T3) pg/mL 1.43 pg/mL (2.18-3.98) Micro Micro Microbiology 12/26/16 Blood Culture - Preliminary, Resulted 12/26/16 Blood Culture Result 1 (CHELE) - Preliminary, Resulted 12/26/16 Urine Culture - Preliminary, Resulted 12/26/16 Urine Culture Result 1 (CHELE) - Preliminary, Resulted Review of Systems Constitutional: yes: weakness, alert, oriented Ears/Nose/Throat: Yes: no symptom reported Eyes: Yes: no symptom reported Pulmonary: Yes no symptom reported Cardiovascular: Yes no symptom reported Gastrointestional: Yes: no symptom reported Musculoskeletal: Yes: no symptom reported Psychiatric/Neurological: Yes: no symptom reported Physical Exam General Appearance: no apparent distress Skin: warm Respiratory: bilateral CTA Heart: S1S2 Abdomen: soft, bowel sounds present Genitourinary: bladder flat Neurology: alert, oriented Musculoskeletal: Osteoarthritis Assessment Assessment IMP IBAN-RESOLVING WITH CR OF 1.3 SEPSIS HYPOTENSION PLAN ANTIBIOTICS IVF'S LABS IN AM JENARO JEONG MD Dec 28, 2016 11:41
--- NOTE | 2016-12-28 12:05 | PDOC ---
Subjective: Subjective: Feeling better. No chills, no abd pain. Hungry. Objective: Objective: Per RN - out of ICU today, would like to advance diet. Vital Signs: Vital Signs Date Time Temp Pulse Resp B/P (MAP) Pulse Ox O2 Delivery O2 Flow Rate FiO2 12/28/16 09:00 55 18 99/67 (78) 96 Room Air 12/28/16 08:00 98.7 98.7 Labs: Laboratory Tests Test 12/28/16 04:54 White Blood Count 9.2 x10^3/uL Red Blood Count 4.01 x10^6/uL Hemoglobin 12.8 g/dL Hematocrit 37.7 % Mean Corpuscular Volume 94 fL Mean Corpuscular Hemoglobin 32 pg Mean Corpuscular Hemoglobin Concent 34 g/dL Red Cell Distribution Width 14.1 % Platelet Count 116 x10^3/uL Neutrophils (%) (Auto) 80 % Lymphocytes (%) (Auto) 5 % Monocytes (%) (Auto) 14 % Eosinophils (%) (Auto) 1 % Basophils (%) (Auto) 0 % Neutrophils # (Auto) 7.3 x10^3uL Lymphocytes # (Auto) 0.5 x10^3/uL Monocytes # (Auto) 1.3 x10^3/uL Eosinophils # (Auto) 0.1 x10^3/uL Basophils # (Auto) 0.0 x10^3/uL Sodium Level 140 mmol/L Potassium Level 3.7 mmol/L Chloride Level 109 mmol/L Carbon Dioxide Level 21 mmol/L Anion Gap 10 Blood Urea Nitrogen 20 mg/dL Creatinine 1.3 mg/dL Estimated GFR (Cockcroft-Gault) 53.8 BUN/Creatinine Ratio 15 Glucose Level 94 mg/dL Calcium Level 8.3 mg/dL Total Bilirubin 2.2 mg/dL Aspartate Amino Transf (AST/SGOT) 54 U/L Alanine Aminotransferase (ALT/SGPT) 49 U/L Alkaline Phosphatase 129 U/L Total Protein 5.5 g/dL Albumin 2.0 g/dL Albumin/Globulin Ratio 0.6 Free Thyroxine 1.29 ng/dL Free Triiodothyronine (T3) pg/mL 1.43 pg/mL Imaging: MRCP 12/28/16 Impression: 1. Mild splenomegaly. Bilateral renal cysts. 2. Unremarkable MRCP. PE: GEN: NAD, up to chair LUNGS: clear HEART: bradycardic ABD: NABS, S/ND/NT NEURO/PSYCH: A & O 3 A/P: Hyperbilirubinemia - improved -prior workup (per GI consult note) includes ERCP (2), liver biopsy, labs -MRCP as above, CT unrevealing Sepsis -hypotension (improved), leukocytosis (resolved), lactic acidosis (resolved), IBAN (resolved) -blood cx w/ GNR, urine cx neg (prelim); on atbx per ID -- Elevated bili 2/2 ?sepsis/cholestasis. ADAT. GUILLERMINA JAUREGUI Dec 28, 2016 12:05
--- NOTE | 2016-12-28 12:08 | PDOC ---
PROGRESS NOTES Chief Complaint Chief Complaint Sepsis ASSESSMENT AND PLAN: 1. Severe sepsis: severe hypotension resolved. GNR Bacteremia 10/04 bottles. on Zosyn. awaiting final report w/ sensitivities 2. Source of bacteremia: NOT UTI. suspected GI, poss cholangitis, given elevated bili. MRCP obtained today, awaiting result 3. Leukocytosis: reactive; monitor 4. IBAN: vasomotor nephropathy. creat much improved, currently at CKD3 level. continue to monitor 5. Fatty liver, diverticulosis: incidental findings on CT 6. Hypoalbuminemia: mod severe. prob multifactorial, incl inflammation, fatty liver, malnutrition. supplements when PO established 7. Nutrition: currently still NPO; await clearance by GI for starting feeds 8. Prophylaxis: lovenox. PPI History of Present Illness History of Present Illness doing ok, denies abd pain, N/V or sob Vitals Vitals Vital Signs Date Time Temp Pulse Resp B/P (MAP) Pulse Ox O2 Delivery O2 Flow Rate FiO2 12/28/16 09:00 55 18 99/67 (78) 96 Room Air 12/28/16 08:00 98.7 98.7 Physical Exam General: Alert, Oriented X3, Cooperative, No acute distress Heart: Regular rate Lungs: Clear Abdomen: Normal bowel sounds, Soft, No tenderness Extremities: No clubbing, No edema Skin: No rashes Labs LABS Laboratory Tests Test 12/28/16 04:54 White Blood Count 9.2 x10^3/uL (4.0-11.0) Red Blood Count 4.01 x10^6/uL (4.30-5.70) Hemoglobin 12.8 g/dL (13.0-17.5) Hematocrit 37.7 % (39.0-53.0) Mean Corpuscular Volume 94 fL (79-100) Mean Corpuscular Hemoglobin 32 pg (25-35) Mean Corpuscular Hemoglobin Concent 34 g/dL (31-37) Red Cell Distribution Width 14.1 % (11.5-14.5) Platelet Count 116 x10^3/uL (140-400) Neutrophils (%) (Auto) 80 % (31-73) Lymphocytes (%) (Auto) 5 % (24-48) Monocytes (%) (Auto) 14 % (0-9) Eosinophils (%) (Auto) 1 % (0-3) Basophils (%) (Auto) 0 % (0-3) Neutrophils # (Auto) 7.3 x10^3uL (1.8-7.7) Lymphocytes # (Auto) 0.5 x10^3/uL (1.0-4.8) Monocytes # (Auto) 1.3 x10^3/uL (0.0-1.1) Eosinophils # (Auto) 0.1 x10^3/uL (0.0-0.7) Basophils # (Auto) 0.0 x10^3/uL (0.0-0.2) Sodium Level 140 mmol/L (136-145) Potassium Level 3.7 mmol/L (3.5-5.1) Chloride Level 109 mmol/L (98-107) Carbon Dioxide Level 21 mmol/L (21-32) Anion Gap 10 (6-14) Blood Urea Nitrogen 20 mg/dL (8-26) Creatinine 1.3 mg/dL (0.7-1.3) Estimated GFR (Cockcroft-Gault) 53.8 BUN/Creatinine Ratio 15 (6-20) Glucose Level 94 mg/dL (70-99) Calcium Level 8.3 mg/dL (8.5-10.1) Total Bilirubin 2.2 mg/dL (0.2-1.0) Aspartate Amino Transf (AST/SGOT) 54 U/L (15-37) Alanine Aminotransferase (ALT/SGPT) 49 U/L (16-63) Alkaline Phosphatase 129 U/L (46-116) Total Protein 5.5 g/dL (6.4-8.2) Albumin 2.0 g/dL (3.4-5.0) Albumin/Globulin Ratio 0.6 (1.0-1.7) Free Thyroxine 1.29 ng/dL (0.76-1.46) Free Triiodothyronine (T3) pg/mL 1.43 pg/mL (2.18-3.98) Nutrition Consultation Dietary Evaluation: Recommendations by RD: Increase Calorie Intake, Protein supplementation Comments: Rec. add boost breeze TID while on clear liquids (250 calories/9 grams protein per serving) Expected Outcomes/Goals: diet advancement meet 75% estimated nutrition needs Malnutrition Findings: Reduced Medical Accounts Receivable Specialist Strength: N/A Reduced Medical Accounts Receivable Specialist Strength (Non-Sev: N/A Weight Status: Obese POOJA GALARZA MD Dec 28, 2016 12:08
[2016-12-28] MEDS: PANTOPRAZOLE 40 MG TABLET.DR. PO SCH (12:13)
[2016-12-28] MEDS: ENOXAPARIN 40 MG/0.4 ML SYRINGE. SQ SCH (21:12)
[2016-12-29 03:00] VITALS: BP 98/64
[2016-12-29] MEDS: PIPERACILLIN/TAZOBACTAM 3.375 GM in IV NORMAL SALINE 50ML 50 ML IV SCH (06:41)
[2016-12-29 07:00] VITALS: BP 100/66
[2016-12-29 07:46] LABS: BASO % 0 % (0-3); EOS % 2 % (0-3); HEMOGLOBIN 12.9 g/dL (13.0-17.5); LYMPH # 0.5 x10^3/uL (1.0-4.8); LYMPH % 7 % (24-48); MEAN CORPUSCULAR HEMOGLOBIN 32 pg (25-35); MEAN CORPUSCULAR HGB CONC 34 g/dL (31-37); MEAN CORPUSCULAR VOLUME 94 fL (79-100); MONO % 14 % (0-9); NEUT % 76 % (31-73); PLATELET COUNT 142 x10^3/uL (140-400); RED BLOOD COUNT 4.05 x10^6/uL (4.30-5.70); RED CELL DISTRIBUTION WIDTH 14.1 % (11.5-14.5); WHITE BLOOD COUNT 7.4 x10^3/uL (4.0-11.0)
[2016-12-29] MEDS: PANTOPRAZOLE 40 MG TABLET.DR. PO SCH (08:02)
[2016-12-29 09:08] LABS: ALBUMIN 2.2 g/dL (3.4-5.0); ALBUMIN/GLOBULIN RATIO 0.7 (1.0-1.7); CALCIUM 7.9 mg/dL (8.5-10.1); CREATININE 1.3 mg/dL (0.7-1.3); GFR 53.8; POTASSIUM 3.7 mmol/L (3.5-5.1); TOTAL BILIRUBIN 1.6 mg/dL (0.2-1.0); TOTAL PROTEIN 5.2 g/dL (6.4-8.2)
--- NOTE | 2016-12-29 10:05 | PDOC ---
Subjective: Subjective: Feeling better, tolerating PO, no complaints. Objective: Vital Signs: Vital Signs Date Time Temp Pulse Resp B/P (MAP) Pulse Ox O2 Delivery O2 Flow Rate FiO2 12/29/16 08:00 Room Air 12/29/16 07:00 98.1 71 18 100/66 (77) 98 98.1 Labs: Laboratory Tests Test 12/29/16 06:30 White Blood Count 7.4 x10^3/uL Red Blood Count 4.05 x10^6/uL Hemoglobin 12.9 g/dL Hematocrit 38.0 % Mean Corpuscular Volume 94 fL Mean Corpuscular Hemoglobin 32 pg Mean Corpuscular Hemoglobin Concent 34 g/dL Red Cell Distribution Width 14.1 % Platelet Count 142 x10^3/uL Neutrophils (%) (Auto) 76 % Lymphocytes (%) (Auto) 7 % Monocytes (%) (Auto) 14 % Eosinophils (%) (Auto) 2 % Basophils (%) (Auto) 0 % Neutrophils # (Auto) 5.7 x10^3uL Lymphocytes # (Auto) 0.5 x10^3/uL Monocytes # (Auto) 1.0 x10^3/uL Eosinophils # (Auto) 0.2 x10^3/uL Basophils # (Auto) 0.0 x10^3/uL Sodium Level 141 mmol/L Potassium Level 3.7 mmol/L Chloride Level 109 mmol/L Carbon Dioxide Level 22 mmol/L Anion Gap 10 Blood Urea Nitrogen 18 mg/dL Creatinine 1.3 mg/dL Estimated GFR (Cockcroft-Gault) 53.8 BUN/Creatinine Ratio 14 Glucose Level 83 mg/dL Calcium Level 7.9 mg/dL Total Bilirubin 1.6 mg/dL Aspartate Amino Transf (AST/SGOT) 45 U/L Alanine Aminotransferase (ALT/SGPT) 45 U/L Alkaline Phosphatase 155 U/L Total Protein 5.2 g/dL Albumin 2.2 g/dL Albumin/Globulin Ratio 0.7 PE: GEN: NAD, up to chair, pleasant LUNGS: CTAB HEART: RRR ABD: NABS, S/ND/NT NEURO/PSYCH: A & O 3 A/P: Sepsis w/ hyperbilirubinemia -blood cx: Serratia marcescens -previous workup (see consult note) includes ERCP (2), liver biopsy, labs -this admission MRCP and CT, unrevealing -no previous colonoscopy -- Improved. Will discuss need for further GI workup w/ Dr. Arias. GUILLERMINA JAUREGUI Dec 29, 2016 10:05
--- NOTE | 2016-12-29 10:25 | PDOC ---
Infectious Disease Note Subjective Subjective Feeling better. Hungry ROS ROS GEN: Denies fevers, chills, sweats HEENT: Denies blurred vision, sore throat CV: Denies chest pain RESP: Denies shortness of air, cough GI: Denies n/v/d NEURO: Denies confusion, dizziness MSK: Denies weakness, joint pain/swelling Vital Sign Vital Signs Vital Signs Date Time Temp Pulse Resp B/P (MAP) Pulse Ox O2 Delivery O2 Flow Rate FiO2 12/29/16 08:00 Room Air 12/29/16 07:00 98.1 71 18 100/66 (77) 98 98.1 Physical Exam PHYSICAL EXAM GENERAL: NAD, Alert, in chair HEENT: PERRL, OC/OP- clear NECK: Supple, no JVD, no LN LUNGS: Clear HEART: S1S2, no gallop, no murmur ABD: Soft, NT, no organomegaly, no rebound, obese EXT: trace to 1 plus edema, no cyanosis BONE CHAR OPERATOR: Alert, oriented x 3, no focal neurologic deficit SKIN: No rash IV: ok Labs Lab Laboratory Tests Test 12/29/16 06:30 White Blood Count 7.4 x10^3/uL (4.0-11.0) Red Blood Count 4.05 x10^6/uL (4.30-5.70) Hemoglobin 12.9 g/dL (13.0-17.5) Hematocrit 38.0 % (39.0-53.0) Mean Corpuscular Volume 94 fL (79-100) Mean Corpuscular Hemoglobin 32 pg (25-35) Mean Corpuscular Hemoglobin Concent 34 g/dL (31-37) Red Cell Distribution Width 14.1 % (11.5-14.5) Platelet Count 142 x10^3/uL (140-400) Neutrophils (%) (Auto) 76 % (31-73) Lymphocytes (%) (Auto) 7 % (24-48) Monocytes (%) (Auto) 14 % (0-9) Eosinophils (%) (Auto) 2 % (0-3) Basophils (%) (Auto) 0 % (0-3) Neutrophils # (Auto) 5.7 x10^3uL (1.8-7.7) Lymphocytes # (Auto) 0.5 x10^3/uL (1.0-4.8) Monocytes # (Auto) 1.0 x10^3/uL (0.0-1.1) Eosinophils # (Auto) 0.2 x10^3/uL (0.0-0.7) Basophils # (Auto) 0.0 x10^3/uL (0.0-0.2) Sodium Level 141 mmol/L (136-145) Potassium Level 3.7 mmol/L (3.5-5.1) Chloride Level 109 mmol/L (98-107) Carbon Dioxide Level 22 mmol/L (21-32) Anion Gap 10 (6-14) Blood Urea Nitrogen 18 mg/dL (8-26) Creatinine 1.3 mg/dL (0.7-1.3) Estimated GFR (Cockcroft-Gault) 53.8 BUN/Creatinine Ratio 14 (6-20) Glucose Level 83 mg/dL (70-99) Calcium Level 7.9 mg/dL (8.5-10.1) Total Bilirubin 1.6 mg/dL (0.2-1.0) Aspartate Amino Transf (AST/SGOT) 45 U/L (15-37) Alanine Aminotransferase (ALT/SGPT) 45 U/L (16-63) Alkaline Phosphatase 155 U/L (46-116) Total Protein 5.2 g/dL (6.4-8.2) Albumin 2.2 g/dL (3.4-5.0) Albumin/Globulin Ratio 0.7 (1.0-1.7) Micro 12/26 Serratia marcescens Recovered from aerobic and anaerobic bottles. GROWTH IN 2 OF 2 SETS ANTIMICROBIAL SUSCEPTIBILITY Final Comment S = Susceptible; I = Intermediate; R = Resistant P = Positive; N = Negative MICS are expressed in micrograms per mL Antibiotic RSLT#1 RSLT#2 RSLT#3 RSLT#4 Amoxicillin/Clavulanic Acid R Cefazolin R Cefepime S Ceftriaxone S Cefuroxime R Cephalothin R Ciprofloxacin S Ertapenem S Gentamicin S Imipenem S Levofloxacin S Nitrofurantoin R Piperacillin S Tetracycline R Tobramycin I Trimethoprim/Sulfa S Objective Assessment Serratia Sepsis POA 12/26 - hypotension/lactic acidosis. Leukocytosis - better IBAN - better ? UTI - neg cult Transaminitis - ? from sepsis. CT and MRCP neg Low TSH. nml T4 Plan Plan of Care Cont levoflox po. If stabel 12/30 ca d/c home F/u labs and cults RUMA CORNELL MD Dec 29, 2016 10:25
[2016-12-29 11:00] VITALS: BP 106/64
--- NOTE | 2016-12-29 12:55 | PDOC ---
Renal-Progress Notes Subjective Notes Notes NO COMPLAINTS History of Present Illness Hx of present illness BETTER Vitals Vitals Vital Signs Date Time Temp Pulse Resp B/P (MAP) Pulse Ox O2 Delivery O2 Flow Rate FiO2 12/29/16 11:00 97.5 58 18 106/64 (78) 94 Room Air 97.5 Weight Weight [ ] I.O. Intake and Output Intake and Output 12/29/16 07:00 Intake Total 650 ml Balance 650 ml Intake Oral 650 ml Labs Labs Laboratory Tests Test 12/29/16 06:30 White Blood Count 7.4 x10^3/uL (4.0-11.0) Red Blood Count 4.05 x10^6/uL (4.30-5.70) Hemoglobin 12.9 g/dL (13.0-17.5) Hematocrit 38.0 % (39.0-53.0) Mean Corpuscular Volume 94 fL (79-100) Mean Corpuscular Hemoglobin 32 pg (25-35) Mean Corpuscular Hemoglobin Concent 34 g/dL (31-37) Red Cell Distribution Width 14.1 % (11.5-14.5) Platelet Count 142 x10^3/uL (140-400) Neutrophils (%) (Auto) 76 % (31-73) Lymphocytes (%) (Auto) 7 % (24-48) Monocytes (%) (Auto) 14 % (0-9) Eosinophils (%) (Auto) 2 % (0-3) Basophils (%) (Auto) 0 % (0-3) Neutrophils # (Auto) 5.7 x10^3uL (1.8-7.7) Lymphocytes # (Auto) 0.5 x10^3/uL (1.0-4.8) Monocytes # (Auto) 1.0 x10^3/uL (0.0-1.1) Eosinophils # (Auto) 0.2 x10^3/uL (0.0-0.7) Basophils # (Auto) 0.0 x10^3/uL (0.0-0.2) Sodium Level 141 mmol/L (136-145) Potassium Level 3.7 mmol/L (3.5-5.1) Chloride Level 109 mmol/L (98-107) Carbon Dioxide Level 22 mmol/L (21-32) Anion Gap 10 (6-14) Blood Urea Nitrogen 18 mg/dL (8-26) Creatinine 1.3 mg/dL (0.7-1.3) Estimated GFR (Cockcroft-Gault) 53.8 BUN/Creatinine Ratio 14 (6-20) Glucose Level 83 mg/dL (70-99) Calcium Level 7.9 mg/dL (8.5-10.1) Total Bilirubin 1.6 mg/dL (0.2-1.0) Aspartate Amino Transf (AST/SGOT) 45 U/L (15-37) Alanine Aminotransferase (ALT/SGPT) 45 U/L (16-63) Alkaline Phosphatase 155 U/L (46-116) Total Protein 5.2 g/dL (6.4-8.2) Albumin 2.2 g/dL (3.4-5.0) Albumin/Globulin Ratio 0.7 (1.0-1.7) Micro Micro Microbiology 12/26/16 Blood Culture - Final, Complete 12/26/16 Blood Culture Result 1 (CHELE) - Final, Complete 12/26/16 Urine Culture - Final, Complete 12/26/16 Urine Culture Result 1 (CHELE) - Final, Complete Review of Systems Constitutional: yes: weakness, alert, oriented Ears/Nose/Throat: Yes: no symptom reported Eyes: Yes: no symptom reported Pulmonary: Yes no symptom reported Cardiovascular: Yes no symptom reported Gastrointestional: Yes: no symptom reported Musculoskeletal: Yes: no symptom reported Psychiatric/Neurological: Yes: no symptom reported Physical Exam General Appearance: no apparent distress Skin: warm Respiratory: bilateral CTA Heart: S1S2 Abdomen: soft, bowel sounds present Genitourinary: bladder flat Neurology: alert, oriented Musculoskeletal: Osteoarthritis Assessment Assessment IMP IBAN-RESOLVED SEPSIS-ON ANTIBIOTICS HYPOTENSION-RESOLVED PLAN WILL SIGN OFF JENARO JEONG MD Dec 29, 2016 12:55
[2016-12-29] MEDS ORDERED: hydrALAZINE 20 MG/ML VIAL. IVP PRN (13:30)
[2016-12-29] MEDS ORDERED: ONDANSETRON PF 4 MG/2 ML VIAL. IV PRN (13:30)
[2016-12-29] MEDS ORDERED: traMADol 50 MG TABLET PO PRN (13:30)
[2016-12-29] MEDS ORDERED: MORPHINE SULFATE 2 MG/ML DISP.SYRIN. IV PRN (13:30)
[2016-12-29] MEDS ORDERED: ACETAMINOPHEN 325 MG TABLET. PO PRN (13:30)
[2016-12-29] MEDS ORDERED: DOCUSATE SODIUM 100 MG CAPSULE. PO PRN (13:30)
--- NOTE | 2016-12-29 13:30 | PDOC ---
PROGRESS NOTES Chief Complaint Chief Complaint Sepsis ASSESSMENT AND PLAN: 1. Severe sepsis: severe hypotension resolved. GNR Bacteremia / bottles, + serratia. switch to po levaquin today with ID. dc tmr. may need outpt colonoscopy. 2. Source of bacteremia: NOT UTI. suspected GI, poss cholangitis, given elevated bili. MRCP neg. 3. Leukocytosis: reactive; monitor 4. IBAN: vasomotor nephropathy. creat much improved, currently at CKD3 level. continue to monitor 5. Fatty liver, diverticulosis: incidental findings on CT 6. Hypoalbuminemia: mod severe. prob multifactorial, incl inflammation, fatty liver, malnutrition. supplements when PO established 7. Nutrition: currently still NPO; await clearance by GI for starting feeds 8. Prophylaxis: lovenox. PPI History of Present Illness History of Present Illness doing ok, denies abd pain, N/V or sob Vitals Vitals Vital Signs Date Time Temp Pulse Resp B/P (MAP) Pulse Ox O2 Delivery O2 Flow Rate FiO2 12/29/16 11:00 97.5 58 18 106/64 (78) 94 Room Air 97.5 Physical Exam General: Alert, Oriented X3, Cooperative, No acute distress Heart: Regular rate Lungs: Clear Abdomen: Normal bowel sounds, Soft, No tenderness Extremities: No clubbing, No edema Skin: No rashes Labs LABS Laboratory Tests Test 12/29/16 06:30 White Blood Count 7.4 x10^3/uL (4.0-11.0) Red Blood Count 4.05 x10^6/uL (4.30-5.70) Hemoglobin 12.9 g/dL (13.0-17.5) Hematocrit 38.0 % (39.0-53.0) Mean Corpuscular Volume 94 fL (79-100) Mean Corpuscular Hemoglobin 32 pg (25-35) Mean Corpuscular Hemoglobin Concent 34 g/dL (31-37) Red Cell Distribution Width 14.1 % (11.5-14.5) Platelet Count 142 x10^3/uL (140-400) Neutrophils (%) (Auto) 76 % (31-73) Lymphocytes (%) (Auto) 7 % (24-48) Monocytes (%) (Auto) 14 % (0-9) Eosinophils (%) (Auto) 2 % (0-3) Basophils (%) (Auto) 0 % (0-3) Neutrophils # (Auto) 5.7 x10^3uL (1.8-7.7) Lymphocytes # (Auto) 0.5 x10^3/uL (1.0-4.8) Monocytes # (Auto) 1.0 x10^3/uL (0.0-1.1) Eosinophils # (Auto) 0.2 x10^3/uL (0.0-0.7) Basophils # (Auto) 0.0 x10^3/uL (0.0-0.2) Sodium Level 141 mmol/L (136-145) Potassium Level 3.7 mmol/L (3.5-5.1) Chloride Level 109 mmol/L (98-107) Carbon Dioxide Level 22 mmol/L (21-32) Anion Gap 10 (6-14) Blood Urea Nitrogen 18 mg/dL (8-26) Creatinine 1.3 mg/dL (0.7-1.3) Estimated GFR (Cockcroft-Gault) 53.8 BUN/Creatinine Ratio 14 (6-20) Glucose Level 83 mg/dL (70-99) Calcium Level 7.9 mg/dL (8.5-10.1) Total Bilirubin 1.6 mg/dL (0.2-1.0) Aspartate Amino Transf (AST/SGOT) 45 U/L (15-37) Alanine Aminotransferase (ALT/SGPT) 45 U/L (16-63) Alkaline Phosphatase 155 U/L (46-116) Total Protein 5.2 g/dL (6.4-8.2) Albumin 2.2 g/dL (3.4-5.0) Albumin/Globulin Ratio 0.7 (1.0-1.7) Review of Systems Review of Systems no fever, chills, sob or chest pain Assessment and Plan Assessmemt and Plan Problems Medical Problems: (1) Hyperbilirubinemia Status: Acute (2) Lactic acidosis Status: Acute (3) Severe sepsis Status: Acute Problems: Comment Review of Relevant I have reviewed the following items jadon (where applicable) has been applied. Labs Laboratory Tests Test 12/28/16 04:54 12/29/16 06:30 White Blood Count 9.2 x10^3/uL (4.0-11.0) 7.4 x10^3/uL (4.0-11.0) Red Blood Count 4.01 x10^6/uL (4.30-5.70) 4.05 x10^6/uL (4.30-5.70) Hemoglobin 12.8 g/dL (13.0-17.5) 12.9 g/dL (13.0-17.5) Hematocrit 37.7 % (39.0-53.0) 38.0 % (39.0-53.0) Mean Corpuscular Volume 94 fL (79-100) 94 fL (79-100) Mean Corpuscular Hemoglobin 32 pg (25-35) 32 pg (25-35) Mean Corpuscular Hemoglobin Concent 34 g/dL (31-37) 34 g/dL (31-37) Red Cell Distribution Width 14.1 % (11.5-14.5) 14.1 % (11.5-14.5) Platelet Count 116 x10^3/uL (140-400) 142 x10^3/uL (140-400) Neutrophils (%) (Auto) 80 % (31-73) 76 % (31-73) Lymphocytes (%) (Auto) 5 % (24-48) 7 % (24-48) Monocytes (%) (Auto) 14 % (0-9) 14 % (0-9) Eosinophils (%) (Auto) 1 % (0-3) 2 % (0-3) Basophils (%) (Auto) 0 % (0-3) 0 % (0-3) Neutrophils # (Auto) 7.3 x10^3uL (1.8-7.7) 5.7 x10^3uL (1.8-7.7) Lymphocytes # (Auto) 0.5 x10^3/uL (1.0-4.8) 0.5 x10^3/uL (1.0-4.8) Monocytes # (Auto) 1.3 x10^3/uL (0.0-1.1) 1.0 x10^3/uL (0.0-1.1) Eosinophils # (Auto) 0.1 x10^3/uL (0.0-0.7) 0.2 x10^3/uL (0.0-0.7) Basophils # (Auto) 0.0 x10^3/uL (0.0-0.2) 0.0 x10^3/uL (0.0-0.2) Sodium Level 140 mmol/L (136-145) 141 mmol/L (136-145) Potassium Level 3.7 mmol/L (3.5-5.1) 3.7 mmol/L (3.5-5.1) Chloride Level 109 mmol/L (98-107) 109 mmol/L (98-107) Carbon Dioxide Level 21 mmol/L (21-32) 22 mmol/L (21-32) Anion Gap 10 (6-14) 10 (6-14) Blood Urea Nitrogen 20 mg/dL (8-26) 18 mg/dL (8-26) Creatinine 1.3 mg/dL (0.7-1.3) 1.3 mg/dL (0.7-1.3) Estimated GFR (Cockcroft-Gault) 53.8 53.8 BUN/Creatinine Ratio 15 (6-20) 14 (6-20) Glucose Level 94 mg/dL (70-99) 83 mg/dL (70-99) Calcium Level 8.3 mg/dL (8.5-10.1) 7.9 mg/dL (8.5-10.1) Total Bilirubin 2.2 mg/dL (0.2-1.0) 1.6 mg/dL (0.2-1.0) Aspartate Amino Transf (AST/SGOT) 54 U/L (15-37) 45 U/L (15-37) Alanine Aminotransferase (ALT/SGPT) 49 U/L (16-63) 45 U/L (16-63) Alkaline Phosphatase 129 U/L (46-116) 155 U/L (46-116) Total Protein 5.5 g/dL (6.4-8.2) 5.2 g/dL (6.4-8.2) Albumin 2.0 g/dL (3.4-5.0) 2.2 g/dL (3.4-5.0) Albumin/Globulin Ratio 0.6 (1.0-1.7) 0.7 (1.0-1.7) Free Thyroxine 1.29 ng/dL (0.76-1.46) Free Triiodothyronine (T3) pg/mL 1.43 pg/mL (2.18-3.98) Laboratory Tests Test 12/29/16 06:30 White Blood Count 7.4 x10^3/uL (4.0-11.0) Red Blood Count 4.05 x10^6/uL (4.30-5.70) Hemoglobin 12.9 g/dL (13.0-17.5) Hematocrit 38.0 % (39.0-53.0) Mean Corpuscular Volume 94 fL (79-100) Mean Corpuscular Hemoglobin 32 pg (25-35) Mean Corpuscular Hemoglobin Concent 34 g/dL (31-37) Red Cell Distribution Width 14.1 % (11.5-14.5) Platelet Count 142 x10^3/uL (140-400) Neutrophils (%) (Auto) 76 % (31-73) Lymphocytes (%) (Auto) 7 % (24-48) Monocytes (%) (Auto) 14 % (0-9) Eosinophils (%) (Auto) 2 % (0-3) Basophils (%) (Auto) 0 % (0-3) Neutrophils # (Auto) 5.7 x10^3uL (1.8-7.7) Lymphocytes # (Auto) 0.5 x10^3/uL (1.0-4.8) Monocytes # (Auto) 1.0 x10^3/uL (0.0-1.1) Eosinophils # (Auto) 0.2 x10^3/uL (0.0-0.7) Basophils # (Auto) 0.0 x10^3/uL (0.0-0.2) Sodium Level 141 mmol/L (136-145) Potassium Level 3.7 mmol/L (3.5-5.1) Chloride Level 109 mmol/L (98-107) Carbon Dioxide Level 22 mmol/L (21-32) Anion Gap 10 (6-14) Blood Urea Nitrogen 18 mg/dL (8-26) Creatinine 1.3 mg/dL (0.7-1.3) Estimated GFR (Cockcroft-Gault) 53.8 BUN/Creatinine Ratio 14 (6-20) Glucose Level 83 mg/dL (70-99) Calcium Level 7.9 mg/dL (8.5-10.1) Total Bilirubin 1.6 mg/dL (0.2-1.0) Aspartate Amino Transf (AST/SGOT) 45 U/L (15-37) Alanine Aminotransferase (ALT/SGPT) 45 U/L (16-63) Alkaline Phosphatase 155 U/L (46-116) Total Protein 5.2 g/dL (6.4-8.2) Albumin 2.2 g/dL (3.4-5.0) Albumin/Globulin Ratio 0.7 (1.0-1.7) Microbiology 12/26/16 Blood Culture - Final, Complete 12/26/16 Blood Culture Result 1 (CHELE) - Final, Complete 12/26/16 Urine Culture - Final, Complete 12/26/16 Urine Culture Result 1 (CHELE) - Final, Complete Medications Current Medications Sodium Chloride 1,000 ml @ 1,180 mls/hr Q51M IV Last administered on 21:03; Start 12/26/16 at 19:15; Stop 12/26/16 at 22:15; Status DC Hydrocortisone Sodium Succinate (Solu-CORTEF) 100 mg 1X ONCE IV Last administered on 12/26/16 20:36; Start 12/26/16 at 20:30; Stop 12/26/16 at 20:32 ; Status DC Vancomycin HCl (Vanco Per Pharmacy) 1 each PRN DAILY PRN MC SEE COMMENTS Last administered on 12/27/16 09:20; Start 12/26/16 at 20:30; Stop 12/27/16 at 09:40 ; Status DC Piperacillin Sod/ Tazobactam Sod (Zosyn Per Pharmacy) 1 each PRN DAILY PRN MC SEE COMMENTS; Start 12/26/16 at 20:30; Stop 12/27/16 at 09:15; Status DC Levofloxacin/ Dextrose (Levaquin Per Pharmacy) 1 each PRN DAILY PRN MC SEE COMMENTS; Start 12/26/16 at 20:30; Stop 12/27/16 at 09:15; Status DC Levofloxacin/ Dextrose 150 ml @ 100 mls/hr 1X ONCE IV Last administered on 21:03; Start 12/26/16 at 21:00; Stop 12/26/16 at 22:29; Status DC Piperacillin Sod/ Tazobactam Sod 3.375 gm/Sodium Chloride 50 ml @ 100 mls/hr 1X ONCE IV Last administered on 12/26/16 22:40; Start 12/26/16 at 21:00; Stop 12/26/16 at 21:29; Status DC Vancomycin HCl 2 gm/Sodium Chloride 500 ml @ 250 mls/hr 1X ONCE IV Last administered on 12/26/16 23:57; Start 12/26/16 at 22:00; Stop 12/26/16 at 23:59 ; Status DC Ondansetron HCl (Zofran) 4 mg PRN Q8HRS PRN IV NAUSEA/VOMITING; Start 12/26/16 at 21:15; Stop 12/27/16 at 21:14; Status DC Fentanyl Citrate (Fentanyl 2ml Vial) 50 mcg PRN Q2HR PRN IV SEVERE PAIN; Start 12/26/16 at 21:15; Stop 12/27/16 at 21:14; Status DC Sodium Chloride 1,000 ml @ 150 mls/hr Q6H40M IV Last administered on 17:34; Start 12/26/16 at 21:14; Stop 12/27/16 at 21:13; Status DC Acetaminophen (Tylenol) 650 mg PRN Q4HRS PRN PO FEVER; Start 12/26/16 at 21:15 ; Stop 12/27/16 at 21:14; Status DC Enoxaparin Sodium (Lovenox Per Pharmacy Prophylaxis Dosing) 1 each PRN DAILY PRN MC SEE COMMENTS; Start 12/26/16 at 22:45; Stop 12/27/16 at 09:15; Status DC Enoxaparin Sodium (Lovenox 40mg Syringe) 40 mg QHS SQ Last administered on 12/28 21:12; Start 12/26/16 at 23:00 Sodium Chloride 1,000 ml @ 1,000 mls/hr 1X ONCE IV Last administered on 23:26; Start 12/26/16 at 23:30; Stop 12/27/16 at 00:29; Status DC Norepinephrine Bitartrate 250 ml @ 0 mls/hr CONT PRN IV SEE I/O RECORD Last administered on 12/27/16 00:06; Start 12/26/16 at 23:30; Stop 12/28/16 at 11:49 ; Status DC Levofloxacin/ Dextrose 150 ml @ 100 mls/hr Q48H IV ; Start 12/28/16 at 21:00; Stop 12/28/16 at 21:00; Status DC Piperacillin Sod/ Tazobactam Sod 3.375 gm/Sodium Chloride 50 ml @ 100 mls/hr Q6HRS IV Last administered on 12/29/16 06:41; Start 12/27/16 at 06:00; Stop at 10:26; Status DC Vancomycin HCl 1.75 gm/Sodium Chloride 500 ml @ 250 mls/hr Q24H IV ; Start at 22:00; Stop 12/27/16 at 22:00; Status DC Vancomycin HCl 1 each 1X ONCE MC ; Start 12/28/16 at 21:30; Stop 12/28/16 at 21 :30; Status DC Levofloxacin/ Dextrose 150 ml @ 100 mls/hr Q24H IV Last administered on 21:12; Start 12/27/16 at 21:00; Stop 12/29/16 at 10:26; Status DC Pantoprazole Sodium (Protonix) 40 mg DAILYAC PO Last administered on 12/29/16 08:02; Start 12/28/16 at 12:00 Levofloxacin (Levaquin) 500 mg Q24H PO ; Start 12/29/16 at 18:00 Active Scripts Active No Active Prescriptions or Reported Medications Vitals/I & O Vital Sign - Last 24 Hours 12/28/16 12/28/16 12/28/16 12/28/16 15:00 19:00 20:00 23:00 Temp 98.1 97.7 96.1 98.1 97.7 96.1 Pulse 76 69 71 Resp 19 18 18 B/P (MAP) 128/86 (100) 108/71 (83) 100/70 (80) Pulse Ox 98 96 97 O2 Delivery Room Air Room Air Room Air Room Air 12/29/16 12/29/16 12/29/16 12/29/16 03:00 07:00 08:00 11:00 Temp 97.7 98.1 97.5 97.7 98.1 97.5 Pulse 67 71 58 Resp 18 18 18 B/P (MAP) 98/64 (75) 100/66 (77) 106/64 (78) Pulse Ox 95 98 94 O2 Delivery Room Air Room Air Room Air Room Air Intake and Output 12/28/16 12/28/16 12/29/16 15:00 23:00 07:00 Intake Total 350 ml 300 ml Balance 350 ml 300 ml Nutrition Consultation Dietary Evaluation: Recommendations by RD: Increase Calorie Intake, Protein supplementation Comments: diet change from renal to regular Expected Outcomes/Goals: meet >75% estimated nutrition needs- goal ongoing Malnutrition Findings: 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
[2016-12-29 15:00] VITALS: BP_SYST 110; BP_SYST 111; BP_DIAS 65; BP_DIAS 69
--- NOTE | 2016-12-29 18:08 | PDOC2 ---
CONSULT Date of Consult Date of Consult DATE: 12/29/16 TIME: 17:46 Reason for Consult Reason for Consult: recurrent infections Referring Physician Referring Physician: Hugo (d/w Dr. Arias) Identification/Chief Complaint Chief Complaint Recurrent fevers and chills Problems: (1) Severe sepsis (2) Hyperbilirubinemia Source Source: Patient History of Present Illness Reason for Visit: Pleasant 76 yo M with multiple admissions for sepsis and bacteromia secondary to serratia. The source of the infection has not be identified. Dr. Arias is proceeding with Gi work up to identify possible source. He otherwise is doing well currently, but certainly does not wish to have other possible episodes of infection. Past Medical History Cardiovascular: HTN Pulmonary: No pertinent hx GI: No pertinent hx, Other Heme/Onc: No pertinent hx Hepatobiliary: Cholelithiasis, Other (stone) Musculoskeletal: Osteoarthritis Renal/: No pertinent hx Past Surgical History Past Surgical History: Cholecystectomy, Other (He has had previous ERCP and sphinterotomies) Family History Family History: Hypertension Social History Quit (1984) ALCOHOL: occassional (a glass of wine or a beer each week) Drugs: None Lives: with Family Current Problem List Problem List Problems Medical Problems: (1) Hyperbilirubinemia Status: Acute (2) Lactic acidosis Status: Acute (3) Severe sepsis Status: Acute Current Medications Current Medications Current Medications Sodium Chloride 1,000 ml @ 1,180 mls/hr Q51M IV Last administered on 21:03; Start 12/26/16 at 19:15; Stop 12/26/16 at 22:15; Status DC Hydrocortisone Sodium Succinate (Solu-CORTEF) 100 mg 1X ONCE IV Last administered on 12/26/16 20:36; Start 12/26/16 at 20:30; Stop 12/26/16 at 20:32 ; Status DC Vancomycin HCl (Vanco Per Pharmacy) 1 each PRN DAILY PRN MC SEE COMMENTS Last administered on 12/27/16 09:20; Start 12/26/16 at 20:30; Stop 12/27/16 at 09:40 ; Status DC Piperacillin Sod/ Tazobactam Sod (Zosyn Per Pharmacy) 1 each PRN DAILY PRN MC SEE COMMENTS; Start 12/26/16 at 20:30; Stop 12/27/16 at 09:15; Status DC Levofloxacin/ Dextrose (Levaquin Per Pharmacy) 1 each PRN DAILY PRN MC SEE COMMENTS; Start 12/26/16 at 20:30; Stop 12/27/16 at 09:15; Status DC Levofloxacin/ Dextrose 150 ml @ 100 mls/hr 1X ONCE IV Last administered on 21:03; Start 12/26/16 at 21:00; Stop 12/26/16 at 22:29; Status DC Piperacillin Sod/ Tazobactam Sod 3.375 gm/Sodium Chloride 50 ml @ 100 mls/hr 1X ONCE IV Last administered on 12/26/16 22:40; Start 12/26/16 at 21:00; Stop 12/26/16 at 21:29; Status DC Vancomycin HCl 2 gm/Sodium Chloride 500 ml @ 250 mls/hr 1X ONCE IV Last administered on 12/26/16 23:57; Start 12/26/16 at 22:00; Stop 12/26/16 at 23:59 ; Status DC Ondansetron HCl (Zofran) 4 mg PRN Q8HRS PRN IV NAUSEA/VOMITING; Start 12/26/16 at 21:15; Stop 12/27/16 at 21:14; Status DC Fentanyl Citrate (Fentanyl 2ml Vial) 50 mcg PRN Q2HR PRN IV SEVERE PAIN; Start 12/26/16 at 21:15; Stop 12/27/16 at 21:14; Status DC Sodium Chloride 1,000 ml @ 150 mls/hr Q6H40M IV Last administered on 17:34; Start 12/26/16 at 21:14; Stop 12/27/16 at 21:13; Status DC Acetaminophen (Tylenol) 650 mg PRN Q4HRS PRN PO FEVER; Start 12/26/16 at 21:15 ; Stop 12/27/16 at 21:14; Status DC Enoxaparin Sodium (Lovenox Per Pharmacy Prophylaxis Dosing) 1 each PRN DAILY PRN MC SEE COMMENTS; Start 12/26/16 at 22:45; Stop 12/27/16 at 09:15; Status DC Enoxaparin Sodium (Lovenox 40mg Syringe) 40 mg QHS SQ Last administered on 12/28 21:12; Start 12/26/16 at 23:00 Sodium Chloride 1,000 ml @ 1,000 mls/hr 1X ONCE IV Last administered on 23:26; Start 12/26/16 at 23:30; Stop 12/27/16 at 00:29; Status DC Norepinephrine Bitartrate 250 ml @ 0 mls/hr CONT PRN IV SEE I/O RECORD Last administered on 12/27/16 00:06; Start 12/26/16 at 23:30; Stop 12/28/16 at 11:49 ; Status DC Levofloxacin/ Dextrose 150 ml @ 100 mls/hr Q48H IV ; Start 12/28/16 at 21:00; Stop 12/28/16 at 21:00; Status DC Piperacillin Sod/ Tazobactam Sod 3.375 gm/Sodium Chloride 50 ml @ 100 mls/hr Q6HRS IV Last administered on 12/29/16 06:41; Start 12/27/16 at 06:00; Stop at 10:26; Status DC Vancomycin HCl 1.75 gm/Sodium Chloride 500 ml @ 250 mls/hr Q24H IV ; Start at 22:00; Stop 12/27/16 at 22:00; Status DC Vancomycin HCl 1 each 1X ONCE MC ; Start 12/28/16 at 21:30; Stop 12/28/16 at 21 :30; Status DC Levofloxacin/ Dextrose 150 ml @ 100 mls/hr Q24H IV Last administered on 21:12; Start 12/27/16 at 21:00; Stop 12/29/16 at 10:26; Status DC Pantoprazole Sodium (Protonix) 40 mg DAILYAC PO Last administered on 12/29/16 08:02; Start 12/28/16 at 12:00 Levofloxacin (Levaquin) 500 mg Q24H PO Last administered on 12/29/16 17:44; Start 12/29/16 at 18:00 Acetaminophen (Tylenol) 650 mg PRN Q6HRS PRN PO FEVER; Start 12/29/16 at 13:30 Ondansetron HCl (Zofran) 4 mg PRN Q6HRS PRN IV NAUSEA/VOMITING; Start 12/29/16 at 13:30 Morphine Sulfate 2 mg PRN Q2HR PRN IV PAIN; Start 12/29/16 at 13:30 Tramadol HCl (Ultram) 50 mg PRN Q6HRS PRN PO PAIN; Start 12/29/16 at 13:30 Hydralazine HCl (Apresoline) 10 mg PRN Q4HRS PRN IVP ELEVATED BP, SEE COMMENTS ; Start 12/29/16 at 13:30 Docusate Sodium (Colace) 100 mg PRN DAILY PRN PO CONSTIPATION; Start 12/29/16 at 13:30 Active Scripts Active No Active Prescriptions or Reported Medications Allergies Allergies: Coded Allergies: No Known Drug Allergies (Unverified , 10/07/14) ROS General: YES: Chills, Malaise Physical Exam General: Alert, Oriented X3, Cooperative, No acute distress HEENT: Atraumatic, PERRLA, EOMI, Mucous membr. moist/pink Lungs: Normal air movement Abdomen: Soft, No tenderness, No masses Extremities: No clubbing, No cyanosis, No edema Skin: No rashes, No breakdown Neuro: Normal gait, Normal speech, Strength at 5/5 X4 ext Psych/Mental Status: Mental status NL, Mood NL MUSCULOSKELETAL: No joint tenderness, No deformity Vitals VITALS Vital Signs Date Time Temp Pulse Resp B/P (MAP) Pulse Ox O2 Delivery O2 Flow Rate FiO2 12/29/16 15:00 97.7 75 18 111/69 (83) 98 Room Air 97.7 Labs Labs Laboratory Tests Test 12/28/16 04:54 12/29/16 06:30 White Blood Count 9.2 x10^3/uL (4.0-11.0) 7.4 x10^3/uL (4.0-11.0) Red Blood Count 4.01 x10^6/uL (4.30-5.70) 4.05 x10^6/uL (4.30-5.70) Hemoglobin 12.8 g/dL (13.0-17.5) 12.9 g/dL (13.0-17.5) Hematocrit 37.7 % (39.0-53.0) 38.0 % (39.0-53.0) Mean Corpuscular Volume 94 fL (79-100) 94 fL (79-100) Mean Corpuscular Hemoglobin 32 pg (25-35) 32 pg (25-35) Mean Corpuscular Hemoglobin Concent 34 g/dL (31-37) 34 g/dL (31-37) Red Cell Distribution Width 14.1 % (11.5-14.5) 14.1 % (11.5-14.5) Platelet Count 116 x10^3/uL (140-400) 142 x10^3/uL (140-400) Neutrophils (%) (Auto) 80 % (31-73) 76 % (31-73) Lymphocytes (%) (Auto) 5 % (24-48) 7 % (24-48) Monocytes (%) (Auto) 14 % (0-9) 14 % (0-9) Eosinophils (%) (Auto) 1 % (0-3) 2 % (0-3) Basophils (%) (Auto) 0 % (0-3) 0 % (0-3) Neutrophils # (Auto) 7.3 x10^3uL (1.8-7.7) 5.7 x10^3uL (1.8-7.7) Lymphocytes # (Auto) 0.5 x10^3/uL (1.0-4.8) 0.5 x10^3/uL (1.0-4.8) Monocytes # (Auto) 1.3 x10^3/uL (0.0-1.1) 1.0 x10^3/uL (0.0-1.1) Eosinophils # (Auto) 0.1 x10^3/uL (0.0-0.7) 0.2 x10^3/uL (0.0-0.7) Basophils # (Auto) 0.0 x10^3/uL (0.0-0.2) 0.0 x10^3/uL (0.0-0.2) Sodium Level 140 mmol/L (136-145) 141 mmol/L (136-145) Potassium Level 3.7 mmol/L (3.5-5.1) 3.7 mmol/L (3.5-5.1) Chloride Level 109 mmol/L (98-107) 109 mmol/L (98-107) Carbon Dioxide Level 21 mmol/L (21-32) 22 mmol/L (21-32) Anion Gap 10 (6-14) 10 (6-14) Blood Urea Nitrogen 20 mg/dL (8-26) 18 mg/dL (8-26) Creatinine 1.3 mg/dL (0.7-1.3) 1.3 mg/dL (0.7-1.3) Estimated GFR (Cockcroft-Gault) 53.8 53.8 BUN/Creatinine Ratio 15 (6-20) 14 (6-20) Glucose Level 94 mg/dL (70-99) 83 mg/dL (70-99) Calcium Level 8.3 mg/dL (8.5-10.1) 7.9 mg/dL (8.5-10.1) Total Bilirubin 2.2 mg/dL (0.2-1.0) 1.6 mg/dL (0.2-1.0) Aspartate Amino Transf (AST/SGOT) 54 U/L (15-37) 45 U/L (15-37) Alanine Aminotransferase (ALT/SGPT) 49 U/L (16-63) 45 U/L (16-63) Alkaline Phosphatase 129 U/L (46-116) 155 U/L (46-116) Total Protein 5.5 g/dL (6.4-8.2) 5.2 g/dL (6.4-8.2) Albumin 2.0 g/dL (3.4-5.0) 2.2 g/dL (3.4-5.0) Albumin/Globulin Ratio 0.6 (1.0-1.7) 0.7 (1.0-1.7) Free Thyroxine 1.29 ng/dL (0.76-1.46) Free Triiodothyronine (T3) pg/mL 1.43 pg/mL (2.18-3.98) Laboratory Tests Test 12/29/16 06:30 White Blood Count 7.4 x10^3/uL (4.0-11.0) Red Blood Count 4.05 x10^6/uL (4.30-5.70) Hemoglobin 12.9 g/dL (13.0-17.5) Hematocrit 38.0 % (39.0-53.0) Mean Corpuscular Volume 94 fL (79-100) Mean Corpuscular Hemoglobin 32 pg (25-35) Mean Corpuscular Hemoglobin Concent 34 g/dL (31-37) Red Cell Distribution Width 14.1 % (11.5-14.5) Platelet Count 142 x10^3/uL (140-400) Neutrophils (%) (Auto) 76 % (31-73) Lymphocytes (%) (Auto) 7 % (24-48) Monocytes (%) (Auto) 14 % (0-9) Eosinophils (%) (Auto) 2 % (0-3) Basophils (%) (Auto) 0 % (0-3) Neutrophils # (Auto) 5.7 x10^3uL (1.8-7.7) Lymphocytes # (Auto) 0.5 x10^3/uL (1.0-4.8) Monocytes # (Auto) 1.0 x10^3/uL (0.0-1.1) Eosinophils # (Auto) 0.2 x10^3/uL (0.0-0.7) Basophils # (Auto) 0.0 x10^3/uL (0.0-0.2) Sodium Level 141 mmol/L (136-145) Potassium Level 3.7 mmol/L (3.5-5.1) Chloride Level 109 mmol/L (98-107) Carbon Dioxide Level 22 mmol/L (21-32) Anion Gap 10 (6-14) Blood Urea Nitrogen 18 mg/dL (8-26) Creatinine 1.3 mg/dL (0.7-1.3) Estimated GFR (Cockcroft-Gault) 53.8 BUN/Creatinine Ratio 14 (6-20) Glucose Level 83 mg/dL (70-99) Calcium Level 7.9 mg/dL (8.5-10.1) Total Bilirubin 1.6 mg/dL (0.2-1.0) Aspartate Amino Transf (AST/SGOT) 45 U/L (15-37) Alanine Aminotransferase (ALT/SGPT) 45 U/L (16-63) Alkaline Phosphatase 155 U/L (46-116) Total Protein 5.2 g/dL (6.4-8.2) Albumin 2.2 g/dL (3.4-5.0) Albumin/Globulin Ratio 0.7 (1.0-1.7) Images Images No obvious source by imaging Assessment/Plan Assessment/Plan Recurrent gram negative infections agree with antibiotics and supportive care, which appears to be resolving current episode agree with planned GI workup per Dr. Arias will consider laparoscopic exploration electively if a source is not identified Thanks for consult! MEY BIGGS MD Dec 29, 2016 18:08
[2016-12-29 19:00] VITALS: BP 129/85
[2016-12-29] MEDS: ENOXAPARIN 40 MG/0.4 ML SYRINGE. SQ SCH (20:41)
[2016-12-29 23:00] VITALS: BP 123/74
[2016-12-30 03:00] VITALS: BP 117/68
[2016-12-30 03:35] LABS: BASO % 1 % (0-3); EOS % 2 % (0-3); HEMATOCRIT 36.6 % (39.0-53.0); HEMOGLOBIN 12.6 g/dL (13.0-17.5); LYMPH # 0.7 x10^3/uL (1.0-4.8); LYMPH % 12 % (24-48); MEAN CORPUSCULAR HEMOGLOBIN 32 pg (25-35); MEAN CORPUSCULAR HGB CONC 34 g/dL (31-37); MEAN CORPUSCULAR VOLUME 93 fL (79-100); MONO % 19 % (0-9); NEUT % 66 % (31-73); PLATELET COUNT 137 x10^3/uL (140-400); RED BLOOD COUNT 3.95 x10^6/uL (4.30-5.70); RED CELL DISTRIBUTION WIDTH 13.9 % (11.5-14.5); WHITE BLOOD COUNT 5.8 x10^3/uL (4.0-11.0)
[2016-12-30 04:40] LABS: CALCIUM 8.4 mg/dL (8.5-10.1); CREATININE 1.4 mg/dL (0.7-1.3); GFR 49.4; POTASSIUM 3.4 mmol/L (3.5-5.1)
[2016-12-30 07:00] VITALS: BP 122/86
[2016-12-30] MEDS: PANTOPRAZOLE 40 MG TABLET.DR. PO SCH (07:40)
[2016-12-30 11:00] VITALS: BP 109/78
--- NOTE | 2016-12-30 12:58 | PDOC ---
Subjective: Subjective: No GI complaints, anxious to DC. Objective: Vital Signs: Vital Signs Date Time Temp Pulse Resp B/P (MAP) Pulse Ox O2 Delivery O2 Flow Rate FiO2 12/30/16 08:00 Room Air 12/30/16 07:00 97.7 65 18 122/86 (98) 94 97.7 Labs: Laboratory Tests Test 12/30/16 03:30 White Blood Count 5.8 x10^3/uL Red Blood Count 3.95 x10^6/uL Hemoglobin 12.6 g/dL Hematocrit 36.6 % Mean Corpuscular Volume 93 fL Mean Corpuscular Hemoglobin 32 pg Mean Corpuscular Hemoglobin Concent 34 g/dL Red Cell Distribution Width 13.9 % Platelet Count 137 x10^3/uL Neutrophils (%) (Auto) 66 % Lymphocytes (%) (Auto) 12 % Monocytes (%) (Auto) 19 % Eosinophils (%) (Auto) 2 % Basophils (%) (Auto) 1 % Neutrophils # (Auto) 3.8 x10^3uL Lymphocytes # (Auto) 0.7 x10^3/uL Monocytes # (Auto) 1.1 x10^3/uL Eosinophils # (Auto) 0.1 x10^3/uL Basophils # (Auto) 0.0 x10^3/uL Sodium Level 142 mmol/L Potassium Level 3.4 mmol/L Chloride Level 109 mmol/L Carbon Dioxide Level 25 mmol/L Anion Gap 8 Blood Urea Nitrogen 17 mg/dL Creatinine 1.4 mg/dL Estimated GFR (Cockcroft-Gault) 49.4 Glucose Level 99 mg/dL Calcium Level 8.4 mg/dL PE: GEN: NAD, up to chair LUNGS: CTAB HEART: RRR ABD: S/ND/NT NEURO/PSYCH: A & O 3 A/P: Recurrent sepsis w/ hyperbilirubinemia -blood cx: Serratia marcescens -previous GI workup includes ERCP (2), liver biopsy, labs, MRCP and CT -no previous colonoscopy, surgery following as well -- Our office w/ arrange outpt colonoscopy, he is agreeable. DC per primary. GUILLERMINA JAUREGUI Dec 30, 2016 12:58
--- NOTE | 2016-12-30 13:08 | PDOC ---
Infectious Disease Note Subjective Subjective Feels alright Appetite good ROS ROS GEN: Denies fevers, chills, sweats CV: Denies chest pain RESP: Denies shortness of air, cough GI: Denies n/v/d NEURO: Denies confusion, dizziness MSK: Denies weakness, joint pain/swelling Vital Sign Vital Signs Vital Signs Date Time Temp Pulse Resp B/P (MAP) Pulse Ox O2 Delivery O2 Flow Rate FiO2 12/30/16 08:00 Room Air 12/30/16 07:00 97.7 65 18 122/86 (98) 94 97.7 Physical Exam PHYSICAL EXAM GENERAL: Propped up in bed, NAD HEENT: OC/OP clear NECK: Supple LUNGS: Clear HEART: S1 and S2, no gallop, no murmur ABD: Soft, NT, BS present EXT: No edema, no cyanosis ARTIST'S REPRESENTATIVE: Alert, oriented x 3, no focal neurologic deficit SKIN: No rash IV: ok Labs Lab Laboratory Tests Test 12/30/16 03:30 White Blood Count 5.8 x10^3/uL (4.0-11.0) Red Blood Count 3.95 x10^6/uL (4.30-5.70) Hemoglobin 12.6 g/dL (13.0-17.5) Hematocrit 36.6 % (39.0-53.0) Mean Corpuscular Volume 93 fL (79-100) Mean Corpuscular Hemoglobin 32 pg (25-35) Mean Corpuscular Hemoglobin Concent 34 g/dL (31-37) Red Cell Distribution Width 13.9 % (11.5-14.5) Platelet Count 137 x10^3/uL (140-400) Neutrophils (%) (Auto) 66 % (31-73) Lymphocytes (%) (Auto) 12 % (24-48) Monocytes (%) (Auto) 19 % (0-9) Eosinophils (%) (Auto) 2 % (0-3) Basophils (%) (Auto) 1 % (0-3) Neutrophils # (Auto) 3.8 x10^3uL (1.8-7.7) Lymphocytes # (Auto) 0.7 x10^3/uL (1.0-4.8) Monocytes # (Auto) 1.1 x10^3/uL (0.0-1.1) Eosinophils # (Auto) 0.1 x10^3/uL (0.0-0.7) Basophils # (Auto) 0.0 x10^3/uL (0.0-0.2) Sodium Level 142 mmol/L (136-145) Potassium Level 3.4 mmol/L (3.5-5.1) Chloride Level 109 mmol/L (98-107) Carbon Dioxide Level 25 mmol/L (21-32) Anion Gap 8 (6-14) Blood Urea Nitrogen 17 mg/dL (8-26) Creatinine 1.4 mg/dL (0.7-1.3) Estimated GFR (Cockcroft-Gault) 49.4 Glucose Level 99 mg/dL (70-99) Calcium Level 8.4 mg/dL (8.5-10.1) Objective Assessment Serratia Sepsis POA 12/26 - hypotension/lactic acidosis. Leukocytosis - better IBAN - better ? UTI - neg cult Transaminitis - ? from sepsis. CT and MRCP neg Low TSH. nml T4 Plan Plan of Care Cont levofloxacin po. Attending Co-Sign The patient was seen and interviewed as well as examined at the bedside. The chart was reviewed. The case was discussed. Agree with the plan of care. NADER TRIPP APRN Dec 30, 2016 13:08 MARILIN MLOINA MD Dec 30, 2016 15:06
--- NOTE | 2016-12-30 13:23 | PDOC ---
SURGICAL PROGRESS NOTE Subjective Hung for Dr Huggins up to chair just had lunch, ate everything but the broccoli (doesn't like it) Vital Signs Vital Signs Date Time Temp Pulse Resp B/P (MAP) Pulse Ox O2 Delivery O2 Flow Rate FiO2 12/30/16 08:00 Room Air 12/30/16 07:00 97.7 65 18 122/86 (98) 94 97.7 I&O Intake and Output 12/30/16 07:00 Intake Total 1080 ml Balance 1080 ml Intake Oral 1080 ml # Voids 2 # Bowel Movements 1 PATIENT HAS A MARCIAL: No General: Alert, Oriented X3, Cooperative, No acute distress Labs Laboratory Tests Test 12/29/16 06:30 12/30/16 03:30 White Blood Count 7.4 x10^3/uL (4.0-11.0) 5.8 x10^3/uL (4.0-11.0) Red Blood Count 4.05 x10^6/uL (4.30-5.70) 3.95 x10^6/uL (4.30-5.70) Hemoglobin 12.9 g/dL (13.0-17.5) 12.6 g/dL (13.0-17.5) Hematocrit 38.0 % (39.0-53.0) 36.6 % (39.0-53.0) Mean Corpuscular Volume 94 fL (79-100) 93 fL (79-100) Mean Corpuscular Hemoglobin 32 pg (25-35) 32 pg (25-35) Mean Corpuscular Hemoglobin Concent 34 g/dL (31-37) 34 g/dL (31-37) Red Cell Distribution Width 14.1 % (11.5-14.5) 13.9 % (11.5-14.5) Platelet Count 142 x10^3/uL (140-400) 137 x10^3/uL (140-400) Neutrophils (%) (Auto) 76 % (31-73) 66 % (31-73) Lymphocytes (%) (Auto) 7 % (24-48) 12 % (24-48) Monocytes (%) (Auto) 14 % (0-9) 19 % (0-9) Eosinophils (%) (Auto) 2 % (0-3) 2 % (0-3) Basophils (%) (Auto) 0 % (0-3) 1 % (0-3) Neutrophils # (Auto) 5.7 x10^3uL (1.8-7.7) 3.8 x10^3uL (1.8-7.7) Lymphocytes # (Auto) 0.5 x10^3/uL (1.0-4.8) 0.7 x10^3/uL (1.0-4.8) Monocytes # (Auto) 1.0 x10^3/uL (0.0-1.1) 1.1 x10^3/uL (0.0-1.1) Eosinophils # (Auto) 0.2 x10^3/uL (0.0-0.7) 0.1 x10^3/uL (0.0-0.7) Basophils # (Auto) 0.0 x10^3/uL (0.0-0.2) 0.0 x10^3/uL (0.0-0.2) Sodium Level 141 mmol/L (136-145) 142 mmol/L (136-145) Potassium Level 3.7 mmol/L (3.5-5.1) 3.4 mmol/L (3.5-5.1) Chloride Level 109 mmol/L (98-107) 109 mmol/L (98-107) Carbon Dioxide Level 22 mmol/L (21-32) 25 mmol/L (21-32) Anion Gap 10 (6-14) 8 (6-14) Blood Urea Nitrogen 18 mg/dL (8-26) 17 mg/dL (8-26) Creatinine 1.3 mg/dL (0.7-1.3) 1.4 mg/dL (0.7-1.3) Estimated GFR (Cockcroft-Gault) 53.8 49.4 BUN/Creatinine Ratio 14 (6-20) Glucose Level 83 mg/dL (70-99) 99 mg/dL (70-99) Calcium Level 7.9 mg/dL (8.5-10.1) 8.4 mg/dL (8.5-10.1) Total Bilirubin 1.6 mg/dL (0.2-1.0) Aspartate Amino Transf (AST/SGOT) 45 U/L (15-37) Alanine Aminotransferase (ALT/SGPT) 45 U/L (16-63) Alkaline Phosphatase 155 U/L (46-116) Total Protein 5.2 g/dL (6.4-8.2) Albumin 2.2 g/dL (3.4-5.0) Albumin/Globulin Ratio 0.7 (1.0-1.7) Laboratory Tests Test 12/30/16 03:30 White Blood Count 5.8 x10^3/uL (4.0-11.0) Red Blood Count 3.95 x10^6/uL (4.30-5.70) Hemoglobin 12.6 g/dL (13.0-17.5) Hematocrit 36.6 % (39.0-53.0) Mean Corpuscular Volume 93 fL (79-100) Mean Corpuscular Hemoglobin 32 pg (25-35) Mean Corpuscular Hemoglobin Concent 34 g/dL (31-37) Red Cell Distribution Width 13.9 % (11.5-14.5) Platelet Count 137 x10^3/uL (140-400) Neutrophils (%) (Auto) 66 % (31-73) Lymphocytes (%) (Auto) 12 % (24-48) Monocytes (%) (Auto) 19 % (0-9) Eosinophils (%) (Auto) 2 % (0-3) Basophils (%) (Auto) 1 % (0-3) Neutrophils # (Auto) 3.8 x10^3uL (1.8-7.7) Lymphocytes # (Auto) 0.7 x10^3/uL (1.0-4.8) Monocytes # (Auto) 1.1 x10^3/uL (0.0-1.1) Eosinophils # (Auto) 0.1 x10^3/uL (0.0-0.7) Basophils # (Auto) 0.0 x10^3/uL (0.0-0.2) Sodium Level 142 mmol/L (136-145) Potassium Level 3.4 mmol/L (3.5-5.1) Chloride Level 109 mmol/L (98-107) Carbon Dioxide Level 25 mmol/L (21-32) Anion Gap 8 (6-14) Blood Urea Nitrogen 17 mg/dL (8-26) Creatinine 1.4 mg/dL (0.7-1.3) Estimated GFR (Cockcroft-Gault) 49.4 Glucose Level 99 mg/dL (70-99) Calcium Level 8.4 mg/dL (8.5-10.1) Problem List Problems Medical Problems: (1) Hyperbilirubinemia Status: Acute (2) Lactic acidosis Status: Acute (3) Severe sepsis Status: Acute Assessment/Plan recurrent infections, uncertain source no new surg recs will follow as outpatient with Dr Huggins Problems: DA DEMARCO MD Dec 30, 2016 13:23
[2016-12-30] MEDS ORDERED: LEVO500T59 PO (13:28)
[2016-12-30] MEDS ORDERED: DOCU-109 PO (13:28)
[2016-12-30] MEDS ORDERED: PANT40TA5 PO (13:28)
[2016-12-30] MEDS ORDERED: LACT1CAP PO (13:30)
[2016-12-30] MEDS ORDERED: POTASSIUM CHLORIDE 20 MEQ TABLET.ER. PO ONE (13:45)
== END 2016-12-30 14:29 | disposition home or self-care (01) | DRG 871 ==
LOC: ER 18:31 → 1 WEST ICU 20:23 → 5 NORTH 12-28 11:46
PROVIDERS: ADMIT Internal Medicine; ATTEND Internal Medicine
DX: A41.53 Sepsis due to Serratia (principal); N17.0 Acute kidney failure with tubular necrosis; E44.0 Moderate protein-calorie malnutrition; R65.20 Severe sepsis without septic shock; K21.9 Gastro-esophageal reflux disease without esophagitis; K76.0 Fatty (change of) liver, not elsewhere classified; K57.30 Diverticulosis of large intestine without perforation or abscess without bleeding; N18.3 Chronic kidney disease, stage 3 (moderate); I12.9 Hypertensive chronic kidney disease with stage 1 through stage 4 chronic kidney disease, or unspecified chronic kidney disease; E66.9 Obesity, unspecified; K75.89 Other specified inflammatory liver diseases; Z96.653 Presence of artificial knee joint, bilateral; N28.1 Cyst of kidney, acquired; M19.90 Unspecified osteoarthritis, unspecified site; I95.9 Hypotension, unspecified; F41.9 Anxiety disorder, unspecified; Z98.49 Cataract extraction status, unspecified eye; Z90.49 Acquired absence of other specified parts of digestive tract; Z82.49 Family history of ischemic heart disease and other diseases of the circulatory system; Z79.899 Other long term (current) drug therapy; Z79.1 Long term (current) use of non-steroidal anti-inflammatories (NSAID); Z79.82 Long term (current) use of aspirin; Z79.2 Long term (current) use of antibiotics; Z68.31 Body mass index [BMI] 31.0-31.9, adult; K36 Other appendicitis
CPT/HCPCS: 36415; 71010; 74176; 74181; 76705; 80048; 80053; 80074; 80076; 81001; 83605; 83690; 84145; 84439; 84443; 84481; 84484; 85007; 85027; 85610; 85651; 87040; 87086; 87205; 87641; 93005; 96365; 96375; G0103; J1650; J1720; J1956; J2543; J3370; J7030; J7040; 99291-25

== ENCOUNTER → 2017-01-12 | Day surgery (SDC) | payer MEDICARE, BC ==
[~2017-01-12] MED LIST changes: +DOCU-109 PO; +HYDROmorphone 2 MG/ML VIAL IV PRN; +IV RINGERS,LACTATED 1000ML 1,000 ML IV SCH; +LACT1CAP PO; +LEVO500T59 PO; +LIDOCAINE 1% 1 ML SYRINGE. ID PRN; +LIDOCAINE 2% PF Vial for OR 5 ML VIAL. ONE; +MORPHINE SULFATE 2 MG/ML DISP.SYRIN. IV PRN; +ONDANSETRON PF 4 MG/2 ML VIAL. IV PRN; +PANT40TA5 PO; +PROCHLORPERAZINE 10 MG/2 ML VIAL. IV PRN; +PROPOFOL 40 ML IV ONE; +fentaNYL PF VIAL 100 MCG/2 ML VIAL IV PRN
[2017-01-12 14:27] VITALS: BP 98/61
== END | disposition home or self-care (01) ==
LOC: SURG 12:25
PROVIDERS: ATTEND Internal Medicine Gastroenterology
DX: K64.0 First degree hemorrhoids (principal); K57.30 Diverticulosis of large intestine without perforation or abscess without bleeding; I10 Essential (primary) hypertension; K21.9 Gastro-esophageal reflux disease without esophagitis; M19.90 Unspecified osteoarthritis, unspecified site; Z90.49 Acquired absence of other specified parts of digestive tract; Z72.89 Other problems related to lifestyle
CPT/HCPCS: 45378; J2001; J2704

== ENCOUNTER 2017-02-01 11:08 | Day surgery (SDC) | payer MEDICARE, BC ==
[~2017-02-01] VITALS: Ht 198.1 cm; Wt 116.1 kg
[~2017-02-01 11:08] MED LIST changes: +BUPIVAC MPF-EPI 0.5%-1:200000 30 ML VIAL. ONE; +PROPOFOL 20 ML IV ONE; -PROPOFOL 40 ML IV ONE; +ROCURONIUM 100 MG/10 ML VIAL. ONE; +SUCCINYLCHOLINE 200 MG/10 ML VIAL. ONE; +fentaNYL PF VIAL 100 MCG/2 ML VIAL ONE
--- NOTE | 2017-02-01 12:07 | PDOC ---
SURGICAL PROGRESS NOTE Subjective Pre-Op Note 76 yo M with recurrent sepsis TO OR for lap exploration, appendectomy, liver biopsy R/B/A d/w pt Office note H&P reviewed and unchanged. Vital Signs Vital Signs Date Time Temp Pulse Resp B/P (MAP) Pulse Ox O2 Delivery O2 Flow Rate FiO2 02/01/17 11:36 98.8 84 22 183/105 96 Room Air 98.8 MEY BIGGS MD Feb 01, 2017 12:07
[2017-02-01] MEDS ORDERED: DEXAMETHASONE SOD PHOS 20 MG/5 ML VIAL. ONE (12:34)
[2017-02-01] MEDS ORDERED: DESFLURANE 31 TO 60 MINUTES IH ONE (12:34)
[2017-02-01] MEDS ORDERED: NEOSTIGMINE 10 MG/10 ML VIAL. ONE (12:43)
[2017-02-01] MEDS ORDERED: ONDANSETRON PF 4 MG/2 ML VIAL. ONE (12:43)
[2017-02-01] MEDS ORDERED: GLYCOPYRROLATE 1 MG/5 ML VIAL. ONE (12:44)
--- NOTE | 2017-02-01 13:38 | PDOC4 ---
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 0.5% marcaine was used. 5mm ports place in left lower quadrant, suprapubic area , right upper quadrant. 12 port placed supraumbilical. All under direct vision of the laparoscope. The liver was fatty in nature. A liver biopsy was obtained using an endoshears. Hemostasis obtained with cautery. The sigmoid colon has some diverticuli, chronic, but no active inflammation. The other viscera was unremarkable. The appendix had a large amount of scarring around it , c/w chronic appendicitis. A was bluntly and sharply dissected out. A NORAH divided the base of the appendix. A vascular load divided the mesoappendix. Endocatch bag delivered the appendix. There was no evidence of bleeding or other pathology. All ports were removed under laparoscopic guidance. Fascia closed with 0 vicryl and PMI. Skin incisions closed with 4 0 monocryl. Dressings applied. Patient tolerated procedure well and sent to PACU. All counts were correct, there were no immediate complications. NATHANIEL BIGGS MD Feb 01, 2017 13:38
[2017-02-01] MEDS ORDERED: HYDROcodone/APAP 5/325MG 1 TAB TABLET PO ONE (13:45)
[2017-02-01] MEDS ORDERED: DOCU-109 PO (13:52)
[2017-02-01] MEDS ORDERED: HYDR-2758 PO (13:54)
[2017-02-01 14:13] VITALS: BP 136/79
--- NOTE | 2017-02-02 17:31 | PATHOLOGY ---
PATHOLOGY REPORT * * * * * * * * FINAL DIAGNOSIS: A. Appendix, appendectomy: - Fibrofatty obliteration of appendiceal lumen. B. Liver biopsy: - Results to be reported separately. COMMENT: Sections of the appendix show fibrofatty obliteration of much of the lumen of the appendix. There is no evidence of an acute appendicitis. The liver biopsy results will be reported separately. (JPM:mgr; 02/02/2017) Special Stains Performed: Trichrome, reticulin, iron, PAS with and without diastase (B1) REPORT ELECTRONICALLY SIGNED BY: Nishant Lopez M.D. DATE/TIME: 02/02/2017 17:30 * * * * * * * * GROSS PATHOLOGY: A. Received in formalin labeled "Janes Cho, appendix," is an appendix measuring 7.2 cm in length and from 0.9 cm in diameter at the proximal end to 0.2 cm at the distal tip with a large amount of attached mesoappendix. The serosal surface is pink mckeon, smooth and glistening. Sectioning reveals a pink mckeon to bright yellow, pinpoint lumen. The specimen is submitted entirely, with the exception of the periappendiceal fat, in cassette A1. B. The specimen is received in formalin designated "liver biopsy" and consists of somewhat finely nodular reddish majano apparent liver parenchyma, ranging from 0.3 up to 1.3 cm in maximum dimensions. The specimen is submitted in toto in cassette B1. A liver panel will be obtained. (JPM; 02/01/17) INITIAL CPT CODE(S): B; 01824, 75221, 64441, 63858, 43703, 08920, 68327 Professional services performed by [facility] at [address] [address] Technical services performed by [facility] at [address] [place] [address], [address], [place] [address]. SPECIMEN(S) RECEIVED: A.Appendix B.Liver, needle biopsy CLINICAL HISTORY: Elevated LFT's, recurrent sepsis PATIENT: JANES CHO /AGE: 3 1940 (Age: 76) PATIENT #: [id number] ALT CASE #: SPECIMEN COLLECTION DATE: 02/01/2017 SPECIMEN RECEIVED DATE: 02/01/2017 [facility] - [id number] [address] - PHONE: [phone] * * * END OF REPORT * * *
== END 2017-02-01 14:56 | disposition home or self-care (01) ==
LOC: SURG 11:08
PROVIDERS: ATTEND Surgery
DX: K36 Other appendicitis (principal); K76.0 Fatty (change of) liver, not elsewhere classified; I10 Essential (primary) hypertension; K21.9 Gastro-esophageal reflux disease without esophagitis; M19.90 Unspecified osteoarthritis, unspecified site; F17.200 Nicotine dependence, unspecified, uncomplicated; Z90.49 Acquired absence of other specified parts of digestive tract; Z87.39 Personal history of other diseases of the musculoskeletal system and connective tissue
CPT/HCPCS: 44970; 47379; J0330; J1100; J2001; J2405; J2704; J2710; J3010; J3490; J7030; J7120; 88304; 88307; 88313

== ENCOUNTER 2017-05-09 11:16 | Inpatient (IN) | payer MEDICARE, BC ==
[~2017-05-09] VITALS: Ht 198.1 cm; Wt 123.0 kg
[~2017-05-09 11:16] MED LIST changes: -BUPIVAC MPF-EPI 0.5%-1:200000 30 ML VIAL. ONE; +HYDR-2758 PO; -HYDROmorphone 2 MG/ML VIAL IV PRN; -IV RINGERS,LACTATED 1000ML 1,000 ML IV SCH; -LIDOCAINE 1% 1 ML SYRINGE. ID PRN; -LIDOCAINE 2% PF Vial for OR 5 ML VIAL. ONE; -MORPHINE SULFATE 2 MG/ML DISP.SYRIN. IV PRN; -ONDANSETRON PF 4 MG/2 ML VIAL. IV PRN; -PROCHLORPERAZINE 10 MG/2 ML VIAL. IV PRN; -PROPOFOL 20 ML IV ONE; -ROCURONIUM 100 MG/10 ML VIAL. ONE; -SUCCINYLCHOLINE 200 MG/10 ML VIAL. ONE; -fentaNYL PF VIAL 100 MCG/2 ML VIAL IV PRN; -fentaNYL PF VIAL 100 MCG/2 ML VIAL ONE
--- NOTE | 2017-05-09 12:02 | EKG ---
[facility] [address] [place] [address] Test Date: 2017-05-09 Test Time: 11:48:58 Pat Name: KATHRYN RON Department: Room: Gender: M Cardiopulmonary Technician And Eeg Tech: [place] : 1940 Requested By: RIGO VERDE Order Number: [id number] Reading MD: Shahzad Ferreira MD Measurements Intervals [place] Rate: 114 P: -56 NM: 148 QRS: -28 QRSD: 82 T: 27 QT: 364 QTc: 506 Interpretive Statements SINUS TACHYCARDIA LEFT AXIS DEVIATION NON-SPECIFIC ST/T CHANGES Electronically Signed On 05-15-2017 11:02:42 SENIOR MANUFACTURING TEST ENGINEER by Shahzad Ferreira MD
[2017-05-09 12:14] LABS: BASO % 0 % (0-3); EOS % 0 % (0-3); HEMATOCRIT 50.5 % (39.0-53.0); HEMOGLOBIN 17.4 g/dL (13.0-17.5); LYMPH # 0.6 x10^3/uL (1.0-4.8); LYMPH % 7 % (24-48); MEAN CORPUSCULAR HEMOGLOBIN 32 pg (25-35); MEAN CORPUSCULAR HGB CONC 35 g/dL (31-37); MEAN CORPUSCULAR VOLUME 93 fL (79-100); MONO % 13 % (0-9); NEUT % 80 % (31-73); PLATELET COUNT 258 x10^3/uL (140-400); RED BLOOD COUNT 5.43 x10^6/uL (4.30-5.70); RED CELL DISTRIBUTION WIDTH 14.3 % (11.5-14.5); WHITE BLOOD COUNT 9.5 x10^3/uL (4.0-11.0)
[2017-05-09 12:21] LABS: CALCIUM 9.7 mg/dL (8.5-10.1); CREATININE 1.6 mg/dL (0.7-1.3); GFR 42.3; POTASSIUM 3.5 mmol/L (3.5-5.1)
[2017-05-09 12:36] LABS: ALBUMIN 2.6 g/dL (3.4-5.0); ALBUMIN/GLOBULIN RATIO 0.5 (1.0-1.7); TOTAL BILIRUBIN 20.8 mg/dL (0.2-1.0); TOTAL PROTEIN 7.6 g/dL (6.4-8.2)
--- NOTE | 2017-05-09 12:41 | RAD ---
Portable AP upright view CXR: Clinical indications: Weakness for one week. Comparison: December 26, 2016. Findings: No acute lung infiltrate or pleural effusion or pulmonary edema or lung mass or pneumothorax is seen. The heart size, pulmonary vasculature, mediastinum and both maria g are unremarkable. Impression: No acute radiographic abnormality is seen.
[2017-05-09 12:59] LABS: BILIRUBIN,URINE LARGE (NEG); GLUCOSE,URINE NEGATIVE (NEG); PROTEIN,URINE NEGATIVE (NEG-TRACE)
[2017-05-09 13:13] LABS: BACTERIA,URINE FEW /HPF (0-FEW); RBC,URINE RARE /HPF (0-2)
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
[2017-05-09] MEDS ORDERED: diphenhydrAMINE HCL 25 MG CAPSULE PO PRN (14:15)
[2017-05-09] MEDS ORDERED: ONDANSETRON PF 4 MG/2 ML VIAL. IV PRN (14:15)
[2017-05-09] MEDS ORDERED: HYDROcodone/APAP 5/325MG 1 TAB TABLET PO PRN (14:15)
--- NOTE | 2017-05-09 14:22 | RAD ---
EXAM: Right upper quadrant ultrasound. HISTORY: Hyperbilirubinemia. FINDINGS: Sonographic evaluation of the right upper quadrant was performed. The liver is enlarged spanning at least 20 cm. Hyperechogenicity of the hepatic parenchyma indicates diffuse hepatic steatosis. There is limits sensitivity for focal lesions, but none are seen. The gallbladder is surgically absent. There is no sonographic Leal sign. The common duct measures 9 mm. Some echogenic material suggested within the proximal common duct or distal hepatic duct. The pancreas is obscured by bowel gas. The right kidney measures 10.9 cm. There is borderline cortical thinning. Cortical echogenicity is preserved. There is no hydronephrosis. A cyst in the interpolar region measures 2.3 x 1.8 cm and appears benign. The visualized portions of the abdominal aorta and inferior vena cava are grossly patent and normal in caliber. IMPRESSION: 1. Hepatomegaly and diffuse hepatic steatosis. 2. Biliary dilatation with suggestion of choledocholithiasis. Limited visualization. MRCP with and without contrast is recommended for further evaluation.
[2017-05-09] MEDS: PANTOPRAZOLE 40 MG TABLET.DR. PO SCH (14:30)
[2017-05-09] MEDS ORDERED: OMEP20CA9 PO (14:53)
[2017-05-09] MEDS ORDERED: SULF-143 PO (14:53)
[2017-05-09] MEDS ORDERED: LACT1CAP38 PO (14:53)
--- NOTE | 2017-05-09 14:57 | PDOC1 ---
History and Physical Date of Admission Date of Admission DATE: 05/09/17 TIME: 14:50 Identification/Chief Complaint Chief Complaint yellow skin, no energy Problems: Source Source: Caregiver, Chart review, Patient History of Present Illness History of Present Illness very pleasant 76 y.o male with good IADLs, maybe noticed jaundice and icteric sclerae about a week, weak no energy for few weeks,also noticed very dark urine but no acholic stools, no abd pain, comes in bec of jaundice, no known hx hepatitis. At ER labs show elevated LFTs and alkaline phosphatase in 100s range and TB 20. US shows choledocholithiasis and diffuse hepatic steatosis , non drinker,. Was here December for jaundice too? and serratia marscesens bacteremia in 4.4 bottles. Already had OP appy and c scope done as OP as instructed to him on dc the last time. Admits to 10 lb weight loss, claims usual weight is 268 lbs.NO fevers. No confusion Past Medical History Cardiovascular: HTN Pulmonary: No pertinent hx GI: No pertinent hx, Other Heme/Onc: No pertinent hx Hepatobiliary: Cholelithiasis, Other Musculoskeletal: Osteoarthritis Renal/: No pertinent hx Past Surgical History Past Surgical History: Appendectomy, Cholecystectomy, Other Family History Family History: Hypertension Social History Smoke: No ALCOHOL: none Drugs: None Current Problem List Problem List Problems Medical Problems: (1) Jaundice Status: Acute (2) Liver failure Status: Acute Problems: Current Medications Current Medications Current Medications Docusate Sodium (Colace) 100 mg BID PO ; Start 05/09/17 at 21:00 Acetaminophen/ Hydrocodone Bitart (Lortab 5/325) 1 tab PRN Q6HRS PRN PO PAIN; Start 05/09/17 at 14:15; Status Cancel Pantoprazole Sodium (Protonix) 40 mg DAILYAC PO ; Start 05/09/17 at 14:30 Diphenhydramine HCl (Benadryl) 25 mg PRN QHS PRN PO INSOMNIA; Start 05/09/17 at 14:15 Acetaminophen/ Hydrocodone Bitart (Lortab 5/325) 1 tab PRN Q4HRS PRN PO PAIN; Start 05/09/17 at 14:15 Ondansetron HCl (Zofran) 4 mg PRN Q6HRS PRN IV NAUSEA/VOMITING; Start 05/09/17 at 14:15 Active Scripts Active Pantoprazole Sodium 40 Mg Tablet. 40 Mg PO DAILYAC Reported Hydrocodone-Apap 5-325 (Hydrocodone Bit/Acetaminophen) 1 Each Tablet 1-2 Tab PO PRN Q6HRS PRN LAST DOSE GIVEN: DATE: TIME: Colace (Docusate Sodium) 100 Mg Capsule 1 Cap PO BID Allergies Allergies: Coded Allergies: No Known Drug Allergies (Unverified , 02/01/17) ROS Review of System as per HPI,a ll else is neg, positive for jaundice, weight loss, no energy and dark urine, all else is neg Physical Exam General: Alert, Oriented X3, Cooperative, No acute distress HEENT: Atraumatic, PERRLA, EOMI, Other (icteric sclerae) Lungs: Clear to auscultation, Normal air movement Heart: S1S2, RRR, no thrills, no rubs, no gallops, no murmurs Cardiovascular: S1 Breasts: Normal, Rt breast nml w/o mass, Lt breast nml w/o mass, Nipples normal Abdomen: Normal bowel sounds, Soft, No tenderness, No hepatosplenomegaly, No masses Male Genitals Exam: normal genitalia, normal prostate Rectal Exam: not examined PELVIC: Nml ext genitalia Extremities: No clubbing, No cyanosis, No edema, Normal pulses, No tenderness/ swelling Skin: No rashes, No breakdown, No significant lesion Neuro: Normal gait, Normal speech, Strength at 5/5 X4 ext, Normal tone, Sensation intact, Cranial nerves 3-12 NL, Reflexes 2+ Psych/Mental Status: Mental status NL, Mood NL Vitals Vitals Vital Signs Date Time Temp Pulse Resp B/P (MAP) Pulse Ox O2 Delivery O2 Flow Rate FiO2 05/09/17 13:41 92 22 99 05/09/17 11:20 97.7 131/91 (104) Room Air 97.7 Labs Labs Laboratory Tests Test 05/09/17 12:04 05/09/17 12:46 White Blood Count 9.5 x10^3/uL (4.0-11.0) Red Blood Count 5.43 x10^6/uL (4.30-5.70) Hemoglobin 17.4 g/dL (13.0-17.5) Hematocrit 50.5 % (39.0-53.0) Mean Corpuscular Volume 93 fL (79-100) Mean Corpuscular Hemoglobin 32 pg (25-35) Mean Corpuscular Hemoglobin Concent 35 g/dL (31-37) Red Cell Distribution Width 14.3 % (11.5-14.5) Platelet Count 258 x10^3/uL (140-400) Neutrophils (%) (Auto) 80 % (31-73) Lymphocytes (%) (Auto) 7 % (24-48) Monocytes (%) (Auto) 13 % (0-9) Eosinophils (%) (Auto) 0 % (0-3) Basophils (%) (Auto) 0 % (0-3) Neutrophils # (Auto) 7.6 x10^3uL (1.8-7.7) Lymphocytes # (Auto) 0.6 x10^3/uL (1.0-4.8) Monocytes # (Auto) 1.2 x10^3/uL (0.0-1.1) Eosinophils # (Auto) 0.0 x10^3/uL (0.0-0.7) Basophils # (Auto) 0.0 x10^3/uL (0.0-0.2) Sodium Level 137 mmol/L (136-145) Potassium Level 3.5 mmol/L (3.5-5.1) Chloride Level 101 mmol/L (98-107) Carbon Dioxide Level 22 mmol/L (21-32) Anion Gap 14 (6-14) Blood Urea Nitrogen 26 mg/dL (8-26) Creatinine 1.6 mg/dL (0.7-1.3) Estimated GFR (Cockcroft-Gault) 42.3 BUN/Creatinine Ratio 16 (6-20) Glucose Level 117 mg/dL (70-99) Calcium Level 9.7 mg/dL (8.5-10.1) Total Bilirubin 20.8 mg/dL (0.2-1.0) Aspartate Amino Transf (AST/SGOT) 207 U/L (15-37) Alanine Aminotransferase (ALT/SGPT) 149 U/L (16-63) Alkaline Phosphatase 448 U/L (46-116) Total Protein 7.6 g/dL (6.4-8.2) Albumin 2.6 g/dL (3.4-5.0) Albumin/Globulin Ratio 0.5 (1.0-1.7) Urine Collection Type Unknown Urine Color Brown Urine Clarity Cloudy Urine pH 6.0 Urine Specific [place] >=1.030 Urine Protein Negative mg/dL (NEG-TRACE) Urine Glucose (UA) Negative mg/dL (NEG) Urine Ketones (Stick) 15 mg/dL (NEG) Urine Blood Negative (NEG) Urine Nitrite (NEG) Urine Bilirubin Large (NEG) Urine Urobilinogen Dipstick 1.0 mg/dL (0.2 mg/dL) Urine Leukocyte Esterase Trace (NEG) Urine RBC Rare /HPF (0-2) Urine WBC 1-4 /HPF (0-4) Urine Squamous Epithelial Cells None /LPF Urine Bacteria Few /HPF (0-FEW) Urine Hyaline Casts Occasional /HPF Urine Mucus Mod /LPF Laboratory Tests Test 05/09/17 12:04 05/09/17 12:46 White Blood Count 9.5 x10^3/uL (4.0-11.0) Red Blood Count 5.43 x10^6/uL (4.30-5.70) Hemoglobin 17.4 g/dL (13.0-17.5) Hematocrit 50.5 % (39.0-53.0) Mean Corpuscular Volume 93 fL (79-100) Mean Corpuscular Hemoglobin 32 pg (25-35) Mean Corpuscular Hemoglobin Concent 35 g/dL (31-37) Red Cell Distribution Width 14.3 % (11.5-14.5) Platelet Count 258 x10^3/uL (140-400) Neutrophils (%) (Auto) 80 % (31-73) Lymphocytes (%) (Auto) 7 % (24-48) Monocytes (%) (Auto) 13 % (0-9) Eosinophils (%) (Auto) 0 % (0-3) Basophils (%) (Auto) 0 % (0-3) Neutrophils # (Auto) 7.6 x10^3uL (1.8-7.7) Lymphocytes # (Auto) 0.6 x10^3/uL (1.0-4.8) Monocytes # (Auto) 1.2 x10^3/uL (0.0-1.1) Eosinophils # (Auto) 0.0 x10^3/uL (0.0-0.7) Basophils # (Auto) 0.0 x10^3/uL (0.0-0.2) Sodium Level 137 mmol/L (136-145) Potassium Level 3.5 mmol/L (3.5-5.1) Chloride Level 101 mmol/L (98-107) Carbon Dioxide Level 22 mmol/L (21-32) Anion Gap 14 (6-14) Blood Urea Nitrogen 26 mg/dL (8-26) Creatinine 1.6 mg/dL (0.7-1.3) Estimated GFR (Cockcroft-Gault) 42.3 BUN/Creatinine Ratio 16 (6-20) Glucose Level 117 mg/dL (70-99) Calcium Level 9.7 mg/dL (8.5-10.1) Total Bilirubin 20.8 mg/dL (0.2-1.0) Aspartate Amino Transf (AST/SGOT) 207 U/L (15-37) Alanine Aminotransferase (ALT/SGPT) 149 U/L (16-63) Alkaline Phosphatase 448 U/L (46-116) Total Protein 7.6 g/dL (6.4-8.2) Albumin 2.6 g/dL (3.4-5.0) Albumin/Globulin Ratio 0.5 (1.0-1.7) Urine Collection Type Unknown Urine Color Brown Urine Clarity Cloudy Urine pH 6.0 Urine Specific [place] >=1.030 Urine Protein Negative mg/dL (NEG-TRACE) Urine Glucose (UA) Negative mg/dL (NEG) Urine Ketones (Stick) 15 mg/dL (NEG) Urine Blood Negative (NEG) Urine Nitrite (NEG) Urine Bilirubin Large (NEG) Urine Urobilinogen Dipstick 1.0 mg/dL (0.2 mg/dL) Urine Leukocyte Esterase Trace (NEG) Urine RBC Rare /HPF (0-2) Urine WBC 1-4 /HPF (0-4) Urine Squamous Epithelial Cells None /LPF Urine Bacteria Few /HPF (0-FEW) Urine Hyaline Casts Occasional /HPF Urine Mucus Mod /LPF VTE Prophylaxis Ordered VTE Prophylaxis Devices: Yes VTE Pharmacological Prophylaxi: Yes Assessment/Plan Assessment/Plan 1. Choledocholithiasis on US 2. JAundice and ICteric sclerae 3. Weight loss 4. MAlaise, fatigue 5. ELevated lFTS 6. HTN, OA - chronic stable 7. 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
[2017-05-09 14:58] LABS: STOMATOCYTES OCC
[2017-05-09 14:59] LABS: PLT ESTIMATE ADEQUATE (ADEQUATE)
[2017-05-09 15:00] VITALS: BP 123/93
--- NOTE | 2017-05-09 15:35 | PDOC2 ---
GI CONSULT Reason For Consult: Jaundice, elevated LFTs HPI: HPI: 76 y/o male well-know to Dr. Arias. H/o recurrent sepsis and hyperbilirubinemia. Recent colonoscopy w/ diverticulosis, then expl lap w/ Dr. Huggins w/ appendectomy and liver biopsy (path: portal and periportal fibrosis, chronic bile flow impairment, onion-skinning). S/p cholecystectomy, ERCP (x2) w / sphincterotomy. On this occasion, had vomiting on 05/01. Since has felt weak w/ decreased appetite, some abd soreness. Thinks 10 pound weight loss. Saw PCP, treated w/ Bactrim for possible UTI. Had a few episodes of diarrhea ( last yesterday x 3) attributed to atbx. PCP called today, said liver and kidney labs abnormal, advised to come to ER for admission. Bili 20.8, Alk Phos 448, Cr 1.6. Feels SOA w/ exertion. US w/ hepatomegaly and biliary ductal dilatation. On PPI for GERD. PMH: PMH: HTN, OA, choledocholithiasis, cholecystectomy, ERCP (x2) w/ sphincterotomy, bilateral knee surgeries, liver biopsy x 2, expl lap w/ appendectomy FH: Family History: No pertinent hx Social History: Smoke: Quit ALCOHOL: occassional Drugs: None ROS: GEN: Denies fevers, chills, sweats HEENT: Denies blurred vision, sore throat CV: Denies chest pain RESP: +SOA GI: Per HPI : +dark urine ENDO: +weight loss NEURO: Denies confusion, dizziness MSK: Denies weakness, joint pain/swelling SKIN: +jaundice Vitals: Vitals: Vital Signs Date Time Temp Pulse Resp B/P (MAP) Pulse Ox O2 Delivery O2 Flow Rate FiO2 05/09/17 14:54 Room Air 05/09/17 13:41 92 22 99 05/09/17 11:20 97.7 131/91 (104) 97.7 Labs: Labs: Laboratory Tests Test 05/09/17 12:04 05/09/17 12:46 White Blood Count 9.5 x10^3/uL (4.0-11.0) Red Blood Count 5.43 x10^6/uL (4.30-5.70) Hemoglobin 17.4 g/dL (13.0-17.5) Hematocrit 50.5 % (39.0-53.0) Mean Corpuscular Volume 93 fL (79-100) Mean Corpuscular Hemoglobin 32 pg (25-35) Mean Corpuscular Hemoglobin Concent 35 g/dL (31-37) Red Cell Distribution Width 14.3 % (11.5-14.5) Platelet Count 258 x10^3/uL (140-400) Neutrophils (%) (Auto) 80 % (31-73) Lymphocytes (%) (Auto) 7 % (24-48) Monocytes (%) (Auto) 13 % (0-9) Eosinophils (%) (Auto) 0 % (0-3) Basophils (%) (Auto) 0 % (0-3) Neutrophils # (Auto) 7.6 x10^3uL (1.8-7.7) Lymphocytes # (Auto) 0.6 x10^3/uL (1.0-4.8) Monocytes # (Auto) 1.2 x10^3/uL (0.0-1.1) Eosinophils # (Auto) 0.0 x10^3/uL (0.0-0.7) Basophils # (Auto) 0.0 x10^3/uL (0.0-0.2) Segmented Neutrophils % 82 % (35-66) Lymphocytes % 7 % (24-48) Monocytes % 11 % (0-10) Platelet Estimate Adequate (ADEQUATE) Stomatocytes Occ Sodium Level 137 mmol/L (136-145) Potassium Level 3.5 mmol/L (3.5-5.1) Chloride Level 101 mmol/L (98-107) Carbon Dioxide Level 22 mmol/L (21-32) Anion Gap 14 (6-14) Blood Urea Nitrogen 26 mg/dL (8-26) Creatinine 1.6 mg/dL (0.7-1.3) Estimated GFR (Cockcroft-Gault) 42.3 BUN/Creatinine Ratio 16 (6-20) Glucose Level 117 mg/dL (70-99) Calcium Level 9.7 mg/dL (8.5-10.1) Total Bilirubin 20.8 mg/dL (0.2-1.0) Aspartate Amino Transf (AST/SGOT) 207 U/L (15-37) Alanine Aminotransferase (ALT/SGPT) 149 U/L (16-63) Alkaline Phosphatase 448 U/L (46-116) Total Protein 7.6 g/dL (6.4-8.2) Albumin 2.6 g/dL (3.4-5.0) Albumin/Globulin Ratio 0.5 (1.0-1.7) Urine Collection Type Unknown Urine Color Brown Urine Clarity Cloudy Urine pH 6.0 Urine Specific [place] >=1.030 Urine Protein Negative mg/dL (NEG-TRACE) Urine Glucose (UA) Negative mg/dL (NEG) Urine Ketones (Stick) 15 mg/dL (NEG) Urine Blood Negative (NEG) Urine Nitrite (NEG) Urine Bilirubin Large (NEG) Urine Urobilinogen Dipstick 1.0 mg/dL (0.2 mg/dL) Urine Leukocyte Esterase Trace (NEG) Urine RBC Rare /HPF (0-2) Urine WBC 1-4 /HPF (0-4) Urine Squamous Epithelial Cells None /LPF Urine Bacteria Few /HPF (0-FEW) Urine Hyaline Casts Occasional /HPF Urine Mucus Mod /LPF Allergies: Coded Allergies: No Known Drug Allergies (Unverified , 02/01/17) Medications: Please see EMR. Imaging: Imaging: CXR Impression: No acute radiographic abnormality is seen. US IMPRESSION: 1. Hepatomegaly and diffuse hepatic steatosis. 2. Biliary dilatation with suggestion of choledocholithiasis. Limited visualization. MRCP with and without contrast is recommended for further evaluation. PE: GEN: NAD HEENT: Atraumatic +sclera icteric LUNGS: tachypneic HEART: RRR ABD: NABS, S/ND/NT EXTREMITY: No edema SKIN: +jaundice NEURO/PSYCH: A & O 3 A/P: A/P: Recurrent jaundice -extensive workup in the past -s/p appendectomy, liver biopsies (chronic stasis, davey obstruction, s/p cholecystectomy), ERCPs -colonoscopy w/ diverticulosis 2016 H/o recurrent sepsis Decreased appetite, weight loss, diarrhea, SOA -- D/w Dr. Arias: Blood cx, consult ID. Ani DIAZ, also EBV, CMV. GUILLERMINA JAUREGUI May 09, 2017 15:35
[2017-05-09 19:15] VITALS: BP 116/72
[2017-05-09] MEDS: DOCUSATE SODIUM 100 MG CAPSULE. PO SCH (21:38)
[2017-05-09 23:15] VITALS: BP 177/77
[2017-05-10] VITALS (12 sets, daily range): BP systolic 99–129; BP diastolic 60–83
[2017-05-10 06:06] LABS: CREATININE 1.4 mg/dL (0.7-1.3); GFR 49.4; POTASSIUM 3.8 mmol/L (3.5-5.1)
[2017-05-10] MEDS: PANTOPRAZOLE 40 MG TABLET.DR. PO SCH (07:30)
[2017-05-10] MEDS: DOCUSATE SODIUM 100 MG CAPSULE. PO SCH ×2 (09:00→21:00)
[2017-05-10 10:14] LABS: ALBUMIN 2.1 g/dL (3.4-5.0); DIRECT BILIRUBIN 15.5 mg/dL (0.0-0.2); TOTAL BILIRUBIN 19.4 mg/dL (0.2-1.0); TOTAL PROTEIN 6.5 g/dL (6.4-8.2)
--- NOTE | 2017-05-10 10:44 | RAD ---
MRI abdomen without contrast and MRCP: Clinical indications: Recurrent jaundice. 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 Nausea. Weakness. History of cholecystectomy. Technique: T1 and T2 weighted MRI sequences of the abdomen was performed in the axial and coronal planes. In phase and out of phase MRI sequences were performed. Using a single shot heavily T2-weighted fast spin-echo and MIP algorithm, 3-D reconstructed MRCP was generated. Comparison: December 20, 2016. Findings: MRI abdomen:: No focal hepatic mass is seen. There is chronic atrophy of the left lobe of the liver. The spleen measures 13.3 cm in length which is mildly enlarged. This has not changed significantly. The pancreas is homogeneous in appearance. The gallbladder is surgically absent. No adrenal mass is evident. Bilateral renal nodules are seen. The most likely represent cysts. There is one nodule seen within the lateral mid to lower aspect of the right kidney measuring 11 mm in size. This appears larger than on the previous study. This may be further evaluated with renal sonography. No focal aneurysmal dilatation of the abdominal aorta is seen. No enlarged abdominal lymphadenopathy is seen. No ascites is seen. MRCP: There is progressive dilatation of the intrahepatic biliary tree and intrahepatic biliary tree. Multiple low signal round filling defects are seen within the right hepatic ducts consistent with stones. There is one stone within the common hepatic duct. On series 8 and image 22, there is a 1.3 cm stone within the proximal common duct. The common bile duct is decompressed distal to this point. This stone appears to migrated from the common hepatic duct previously. There is no beaded appearance of the intrahepatic bile ducts or extrahepatic bile ducts to indicate definite sclerosing cholangitis. The main pancreatic duct is not dilated. IMPRESSION: Dilatation of the intrahepatic and intrahepatic biliary tree due to multiple stones. There is a 1.3 cm stone within the proximal common bile duct. Stricture in this area cannot be excluded. Note - this report was called to Dr. Arias at 10:30 AM on May 10, 2017. Bilateral renal nodules most likely representing cysts. There is an increase in size of of a nodule within the mid to lower aspect of the right kidney. Recommend renal sonography for further evaluation. No change in size of mild splenomegaly.
--- NOTE | 2017-05-10 10:50 | PDOC ---
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
[2017-05-10] MEDS ORDERED: hydrALAZINE 20 MG/ML VIAL. IVP PRN (12:45)
[2017-05-10] MEDS ORDERED: ACETAMINOPHEN 325 MG TABLET. PO PRN (12:45)
[2017-05-10] MEDS ORDERED: traMADol 50 MG TABLET PO PRN (12:45)
[2017-05-10] MEDS ORDERED: DOCUSATE SODIUM 100 MG CAPSULE. PO PRN (12:45)
[2017-05-10] MEDS ORDERED: ONDANSETRON PF 4 MG/2 ML VIAL. IV PRN (12:45)
--- NOTE | 2017-05-10 12:48 | PDOC ---
PROGRESS NOTES Chief Complaint Chief Complaint 1. Choledocholithiasis on US 2. JAundice and ICteric sclerae with hyperbilirubinemia 2/2 obstructive CBD with cholelithiasis on MRCP 3. Weight loss 4. MAlaise, fatigue 5. ELevated lFTS with obstructive hepatitis 6. HTN, OA - chronic stable 7. 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 need ERCP today labs LFT tmr npo for now DVT ppx tmr History of Present Illness History of Present Illness ROS: no fever, chills, sob or chest pain jaundice high LFT WITH high bili no abd pain Vitals Vitals Vital Signs Date Time Temp Pulse Resp B/P (MAP) Pulse Ox O2 Delivery O2 Flow Rate FiO2 05/10/17 11:11 97.6 78 18 115/70 (85) 97 Room Air 97.6 Physical Exam Physical Exam jaundice General: Alert, Oriented X3, Cooperative, No acute distress Heart: Regular rate, Normal S1 Lungs: Clear Abdomen: Normal bowel sounds, Soft, No tenderness, No hepatosplenomegaly, No masses Extremities: No clubbing, No cyanosis, No edema, Normal pulses, No tenderness/ swelling Skin: No rashes, No breakdown, No significant lesion Labs LABS Laboratory Tests Test 05/09/17 12:46 05/10/17 04:00 05/10/17 04:40 Urine Collection Type Unknown Urine Color Brown Urine Clarity Cloudy Urine pH 6.0 Urine Specific [place] >=1.030 Urine Protein Negative mg/dL (NEG-TRACE) Urine Glucose (UA) Negative mg/dL (NEG) Urine Ketones (Stick) 15 mg/dL (NEG) Urine Blood Negative (NEG) Urine Nitrite (NEG) Urine Bilirubin Large (NEG) Urine Urobilinogen Dipstick 1.0 mg/dL (0.2 mg/dL) Urine Leukocyte Esterase Trace (NEG) Urine RBC Rare /HPF (0-2) Urine WBC 1-4 /HPF (0-4) Urine Squamous Epithelial Cells None /LPF Urine Bacteria Few /HPF (0-FEW) Urine Hyaline Casts Occasional /HPF Urine Mucus Mod /LPF Total Bilirubin 19.4 mg/dL (0.2-1.0) Direct Bilirubin 15.5 mg/dL (0.0-0.2) Aspartate Amino Transf (AST/SGOT) 169 U/L (15-37) Alanine Aminotransferase (ALT/SGPT) 122 U/L (16-63) Alkaline Phosphatase 398 U/L (46-116) Total Protein 6.5 g/dL (6.4-8.2) Albumin 2.1 g/dL (3.4-5.0) Sodium Level 136 mmol/L (136-145) Potassium Level 3.8 mmol/L (3.5-5.1) Chloride Level 104 mmol/L (98-107) Carbon Dioxide Level 21 mmol/L (21-32) Anion Gap 11 (6-14) Blood Urea Nitrogen 24 mg/dL (8-26) Creatinine 1.4 mg/dL (0.7-1.3) Estimated GFR (Cockcroft-Gault) 49.4 Glucose Level 97 mg/dL (70-99) Calcium Level 9.0 mg/dL (8.5-10.1) Assessment and Plan Assessmemt and Plan Problems Medical Problems: (1) Jaundice Status: Acute (2) Liver failure Status: Acute Problems: Comment Review of Relevant I have reviewed the following items jadon (where applicable) has been applied. Labs Laboratory Tests Test 05/09/17 12:04 05/09/17 12:46 05/10/17 04:00 05/10/17 04:40 White Blood Count 9.5 x10^3/uL (4.0-11.0) Red Blood Count 5.43 x10^6/uL (4.30-5.70) Hemoglobin 17.4 g/dL (13.0-17.5) Hematocrit 50.5 % (39.0-53.0) Mean Corpuscular Volume 93 fL (79-100) Mean Corpuscular Hemoglobin 32 pg (25-35) Mean Corpuscular Hemoglobin Concent 35 g/dL (31-37) Red Cell Distribution Width 14.3 % (11.5-14.5) Platelet Count 258 x10^3/uL (140-400) Neutrophils (%) (Auto) 80 % (31-73) Lymphocytes (%) (Auto) 7 % (24-48) Monocytes (%) (Auto) 13 % (0-9) Eosinophils (%) (Auto) 0 % (0-3) Basophils (%) (Auto) 0 % (0-3) Neutrophils # (Auto) 7.6 x10^3uL (1.8-7.7) Lymphocytes # (Auto) 0.6 x10^3/uL (1.0-4.8) Monocytes # (Auto) 1.2 x10^3/uL (0.0-1.1) Eosinophils # (Auto) 0.0 x10^3/uL (0.0-0.7) Basophils # (Auto) 0.0 x10^3/uL (0.0-0.2) Segmented Neutrophils % 82 % (35-66) Lymphocytes % 7 % (24-48) Monocytes % 11 % (0-10) Platelet Estimate Adequate (ADEQUATE) Stomatocytes Occ Sodium Level 137 mmol/L (136-145) 136 mmol/L (136-145) Potassium Level 3.5 mmol/L (3.5-5.1) 3.8 mmol/L (3.5-5.1) Chloride Level 101 mmol/L (98-107) 104 mmol/L (98-107) Carbon Dioxide Level 22 mmol/L (21-32) 21 mmol/L (21-32) Anion Gap 14 (6-14) 11 (6-14) Blood Urea Nitrogen 26 mg/dL (8-26) 24 mg/dL (8-26) Creatinine 1.6 mg/dL (0.7-1.3) 1.4 mg/dL (0.7-1.3) Estimated GFR (Cockcroft-Gault) 42.3 49.4 BUN/Creatinine Ratio 16 (6-20) Glucose Level 117 mg/dL (70-99) 97 mg/dL (70-99) Calcium Level 9.7 mg/dL (8.5-10.1) 9.0 mg/dL (8.5-10.1) Total Bilirubin 20.8 mg/dL (0.2-1.0) 19.4 mg/dL (0.2-1.0) Aspartate Amino Transf (AST/SGOT) 207 U/L (15-37) 169 U/L (15-37) Alanine Aminotransferase (ALT/SGPT) 149 U/L (16-63) 122 U/L (16-63) Alkaline Phosphatase 448 U/L (46-116) 398 U/L (46-116) Total Protein 7.6 g/dL (6.4-8.2) 6.5 g/dL (6.4-8.2) Albumin 2.6 g/dL (3.4-5.0) 2.1 g/dL (3.4-5.0) Albumin/Globulin Ratio 0.5 (1.0-1.7) Urine Collection Type Unknown Urine Color Brown Urine Clarity Cloudy Urine pH 6.0 Urine Specific [place] >=1.030 Urine Protein Negative mg/dL (NEG-TRACE) Urine Glucose (UA) Negative mg/dL (NEG) Urine Ketones (Stick) 15 mg/dL (NEG) Urine Blood Negative (NEG) Urine Nitrite (NEG) Urine Bilirubin Large (NEG) Urine Urobilinogen Dipstick 1.0 mg/dL (0.2 mg/dL) Urine Leukocyte Esterase Trace (NEG) Urine RBC Rare /HPF (0-2) Urine WBC 1-4 /HPF (0-4) Urine Squamous Epithelial Cells None /LPF Urine Bacteria Few /HPF (0-FEW) Urine Hyaline Casts Occasional /HPF Urine Mucus Mod /LPF Direct Bilirubin 15.5 mg/dL (0.0-0.2) Laboratory Tests Test 05/09/17 12:46 05/10/17 04:00 05/10/17 04:40 Urine Collection Type Unknown Urine Color Brown Urine Clarity Cloudy Urine pH 6.0 Urine Specific [place] >=1.030 Urine Protein Negative mg/dL (NEG-TRACE) Urine Glucose (UA) Negative mg/dL (NEG) Urine Ketones (Stick) 15 mg/dL (NEG) Urine Blood Negative (NEG) Urine Nitrite (NEG) Urine Bilirubin Large (NEG) Urine Urobilinogen Dipstick 1.0 mg/dL (0.2 mg/dL) Urine Leukocyte Esterase Trace (NEG) Urine RBC Rare /HPF (0-2) Urine WBC 1-4 /HPF (0-4) Urine Squamous Epithelial Cells None /LPF Urine Bacteria Few /HPF (0-FEW) Urine Hyaline Casts Occasional /HPF Urine Mucus Mod /LPF Total Bilirubin 19.4 mg/dL (0.2-1.0) Direct Bilirubin 15.5 mg/dL (0.0-0.2) Aspartate Amino Transf (AST/SGOT) 169 U/L (15-37) Alanine Aminotransferase (ALT/SGPT) 122 U/L (16-63) Alkaline Phosphatase 398 U/L (46-116) Total Protein 6.5 g/dL (6.4-8.2) Albumin 2.1 g/dL (3.4-5.0) Sodium Level 136 mmol/L (136-145) Potassium Level 3.8 mmol/L (3.5-5.1) Chloride Level 104 mmol/L (98-107) Carbon Dioxide Level 21 mmol/L (21-32) Anion Gap 11 (6-14) Blood Urea Nitrogen 24 mg/dL (8-26) Creatinine 1.4 mg/dL (0.7-1.3) Estimated GFR (Cockcroft-Gault) 49.4 Glucose Level 97 mg/dL (70-99) Calcium Level 9.0 mg/dL (8.5-10.1) Medications Current Medications Docusate Sodium (Colace) 100 mg BID PO ; Start 05/09/17 at 21:00 Acetaminophen/ Hydrocodone Bitart (Lortab 5/325) 1 tab PRN Q6HRS PRN PO PAIN; Start 05/09/17 at 14:15; Status Cancel Pantoprazole Sodium (Protonix) 40 mg DAILYAC PO ; Start 05/09/17 at 14:30 Diphenhydramine HCl (Benadryl) 25 mg PRN QHS PRN PO INSOMNIA; Start 05/09/17 at 14:15 Acetaminophen/ Hydrocodone Bitart (Lortab 5/325) 1 tab PRN Q4HRS PRN PO PAIN; Start 05/09/17 at 14:15 Ondansetron HCl (Zofran) 4 mg PRN Q6HRS PRN IV NAUSEA/VOMITING; Start 05/09/17 at 14:15 Levofloxacin/ Dextrose 100 ml @ 100 mls/hr Q24H IV Last administered on t 16:45; Start 05/09/17 at 16:00; Stop 05/10/17 at 10:51; Status DC Active Scripts Active Pantoprazole Sodium 40 Mg Tablet. 40 Mg PO DAILYAC Reported Omeprazole 20 Mg Capsule. 20 Mg PO PRN Sulfamethoxazole-Tmp Ds Tablet (Sulfamethoxazole/Trimethoprim) 1 Each Tablet 1 Tab PO BID [facility] Rx Capsule (Lactobacillus Casei/Folic Acid) 1 Each Capsule 1 Each PO HS Hydrocodone-Apap 5-325 (Hydrocodone Bit/Acetaminophen) 1 Each Tablet 1-2 Tab PO PRN Q6HRS PRN LAST DOSE GIVEN: DATE: TIME: Colace (Docusate Sodium) 100 Mg Capsule 1 Cap PO BID Vitals/I & O Vital Sign - Last 24 Hours 05/09/17 05/09/17 05/09/17 05/09/17 13:11 13:41 14:54 15:00 Temp 97.7 97.7 Pulse 96 92 103 Resp 20 22 20 B/P (MAP) 123/93 (103) Pulse Ox 96 99 98 O2 Delivery Room Air Room Air 05/09/17 05/09/17 05/09/17 05/09/17 15:00 19:15 20:15 23:15 Temp 97.7 98.0 98.1 97.7 98.0 98.1 Pulse 103 76 81 Resp 20 20 20 B/P (MAP) 123/93 (103) 116/72 (87) 177/77 (110) Pulse Ox 98 96 94 O2 Delivery Room Air Room Air Room Air Room Air 05/10/17 05/10/17 05/10/17 05/10/17 03:15 07:00 08:00 11:11 Temp 97.9 97.9 97.6 97.9 97.9 97.6 Pulse 71 70 78 Resp 18 18 18 B/P (MAP) 99/65 (76) 107/69 (82) 115/70 (85) Pulse Ox 96 93 97 O2 Delivery Room Air Room Air Room Air Room Air NYLA HO MD May 10, 2017 12:48
[2017-05-10] MEDS: ENOXAPARIN 40 MG/0.4 ML SYRINGE. SQ SCH (13:00)
--- NOTE | 2017-05-10 13:02 | PDOC ---
Subjective: Subjective: Not hooked up to IVF, really thirsty. Objective: Objective: ID stopped Levaquin. D/w Dr. Arias earlier - ERCP tonight. Vital Signs: Vital Signs Date Time Temp Pulse Resp B/P (MAP) Pulse Ox O2 Delivery O2 Flow Rate FiO2 05/10/17 11:11 97.6 78 18 115/70 (85) 97 Room Air 97.6 Labs: Laboratory Tests Test 05/10/17 04:00 05/10/17 04:40 Total Bilirubin 19.4 mg/dL Direct Bilirubin 15.5 mg/dL Aspartate Amino Transf (AST/SGOT) 169 U/L Alanine Aminotransferase (ALT/SGPT) 122 U/L Alkaline Phosphatase 398 U/L Total Protein 6.5 g/dL Albumin 2.1 g/dL Sodium Level 136 mmol/L Potassium Level 3.8 mmol/L Chloride Level 104 mmol/L Carbon Dioxide Level 21 mmol/L Anion Gap 11 Blood Urea Nitrogen 24 mg/dL Creatinine 1.4 mg/dL Estimated GFR (Cockcroft-Gault) 49.4 Glucose Level 97 mg/dL Calcium Level 9.0 mg/dL Imaging: MRCP 05/10/17 Dilatation of the intrahepatic and intrahepatic biliary tree due to multiple stones. There is a 1.3 cm stone within the proximal common bile duct. Stricture in this area cannot be excluded. Note - this report was called to Dr. Arias at 10:30 AM on May 10, 2017. Bilateral renal nodules most likely representing cysts. There is an increase in size of of a nodule within the mid to lower aspect of the right kidney. Recommend renal sonography for further evaluation. No change in size of mild splenomegaly. PE: GEN: NAD, was asleep LUNGS: CTAB HEART: RRR ABD: S/ND/NT SKIN: jaundice NEURO/PSYCH: A & O 3 A/P: Recurrent jaundice, h/o recurrent sepsis Choledocholithiasis S/p cholecystectomy and sphincterotomy S/p liver biopsy - chronic stasis, possible PSC -- Agrees to ERCP tonight. NPO, defer IVF to primary. ID following - no atbx for now, received Levaquin yesterday, was previously on Bactrim for suspected UTI. GUILLERMINA JAUREGUI May 10, 2017 13:02
[2017-05-10] MEDS ORDERED: IOHEXOL 300 MG/ML 100ML VIAL. ONE (14:43)
[2017-05-10] MEDS ORDERED: IV RINGERS,LACTATED 1000ML 1,000 ML IV ONE (16:15)
[2017-05-10] MEDS ORDERED: LIDOCAINE 2% PF Vial for OR 5 ML VIAL. ONE ×2 (16:39→18:57)
[2017-05-10] MEDS ORDERED: PROPOFOL 20 ML IV ONE (16:39)
[2017-05-10] MEDS ORDERED: SUCCINYLCHOLINE 200 MG/10 ML VIAL. ONE (16:39)
[2017-05-10] MEDS ORDERED: PHENYLEPHRINE 10 MG/ML VIAL. ONE (16:41)
[2017-05-10] MEDS ORDERED: IOHEXOL 300 MG/ML 100ML VIAL. INT CAT ONE (18:58)
--- NOTE | 2017-05-10 19:05 | PDOC4 ---
Operative Note Operative Note ERCP with stone extractions/stent placement/stricture dilation Meds propofol per anesthesia Pre-op dx obstructive jaundice/abnl MRCP Post-op dx cbd stricture dilated cholangitis with retained stones S/P balloon sweeps 10 Fr 5 cm stent placed Plan actigall therapy interval ERCP in 1 month for stent removal and stone extractions JAZZMINE ARAUZ MD May 10, 2017 19:05
--- NOTE | 2017-05-10 19:29 | OP ---
DATE OF SURGERY: 05/10/2017 PROCEDURE PERFORMED: Endoscopic retrograde cholangiopancreatography with stone extraction, stent placement and balloon dilatation of stricture. PREOPERATIVE DIAGNOSES: Jaundice, abnormal magnetic resonant cholangiopancreatography with retained common duct stone. POSTOPERATIVE DIAGNOSES: Choledocholithiasis, status post stone extraction balloon dilatation of stricture and a 10-Bermudian 5 cm stent placement for persistent cholangitis. DESCRIPTION OF PROCEDURE: After risks and benefits of procedure including risk of perforation as well as pancreatitis were discussed with the patient and family, informed consent was obtained. The patient was then placed in the prone position after being intubated. Side view endoscope was advanced through esophagus, stomach, and first and second portions of duodenum. Major papilla was identified. Previous sphincterotomy site had been encountered. Subsequently, a balloon occlusion cholangiogram was performed which revealed retained stones one of which was approximately 2 cm in maximal diameter. This was eventually extracted after the stricture was dilated with balloon. Some small fragments were encountered with persistent cholangitis. It was elected to place a 10-Bermudian 5 cm stent, begin the patient on Actigall. 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 JAZZMINE ARAUZ MD DR: CAIN/elroy JOB#: [id number] / [id number]
[2017-05-10] MEDS: HYDROcodone/APAP 5/325MG 1 TAB TABLET PO PRN (23:03)
[2017-05-11] MEDS: SIMETHICONE 80 MG TAB.CHEW PO PRN (02:57)
[2017-05-11 03:24] VITALS: BP 110/68
--- NOTE | 2017-05-11 04:02 | CONS ---
DATE OF CONSULTATION: 05/10/2017 REFERRING PHYSICIAN: Dr. Abby Black. REASON FOR CONSULTATION: Jaundice and elevated LFT. HISTORY OF PRESENT ILLNESS: 76-year-old male admitted with hyperbilirubinemia. The patient was in his normal health until 05/01 when he had an episode of vomiting. Subsequent to that, he felt weak with decreased appetite, weight loss of about 10 pounds and some abdominal soreness. He was seen by his PCP and was treated with Bactrim for possible UTI. He denied any dysuria, hematuria, increased frequency. He denied any fever, chills, nausea. He had a few episodes of diarrhea, but none this morning. He denied any history of recent travel. He denies any history of known hepatitis. The patient had a similar episode in December of this year for jaundice at which time he was found to have Serratia marcescens bacteremia and was treated with antibiotics. Subsequent to that in December, he underwent open appendectomy with a liver biopsy. 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 He also had a recent colonoscopy with diverticulosis in 12/2016. The patient was found to have a bilirubin of 20.8, alkaline phosphatase 448 and creatinine of 1.6. He was started on empiric levaquin. Today, the patient feels a little better. He was able to tolerate his meal last night. He is n.p.o. this morning for possible procedure later today. Ultrasound showed hepatomegaly with biliary ductal dilatation. The patient is currently on no antibiotics. REVIEW OF SYSTEMS: The patient denies any itching, headache, visual disturbances, oral lesions, nausea, vomiting, diarrhea, abdominal pain, symptoms, cough, shortness of breath, new joint swelling, has old DJD changes especially the knee, rash, easy bruising, melena, hematochezia, headache, appetite is low as above with 10-pound weight loss. REVIEW OF SYSTEMS: As above, otherwise negative. PAST SURGICAL HISTORY: Appendectomy, cholecystectomy and liver biopsy. FAMILY HISTORY: As in H and P. SOCIAL HISTORY: Denies smoking, quit in 1984. No alcohol and no illicit drug use. No [id number] herbal or other supplements. Lives with son. Retired. CURRENT MEDICATIONS: INPATIENT MEDICATION LIST: Noted. ANTIBIOTICS: None. ALLERGIES: NO KNOWN DRUG ALLERGIES. PHYSICAL EXAMINATION: VITAL SIGNS: Temperature 98, pulse 76, respiration rate 20, blood pressure 116/72 and oxygen saturation 96% on room air. GENERAL: Alert and oriented x 3, cooperative male in no acute distress, comfortable. HEENT: Atraumatic and normocephalic. Icterus present. No oral lesions seen. PER, EOMI NECK: Supple, no JVD, no lymphadenopathy. LUNGS: Clear to auscultation and percussion bilaterally. HEART: S1, S2 present. No gallops or murmurs. No rub. ABDOMEN: Soft. Bowel sounds present, nondistended and nontender. EXTREMITIES: No edema and no cyanosis. DERM: No generalized rash. No skin breakdown, jaundice. NEUROLOGIC: Alert, oriented x 3, nonfocal, grossly intact. PSYCHIATRIC: Mentation normal, mood normal and affect normal. LABORATORY DATA: WBC 9.5, hemoglobin 17.4, hematocrit 50.5, platelets 258, neutrophil 80%, lymphocytes 7%, monocytes 13%. Sodium 136, potassium 3.8, bicarbonate 21, chloride 104, BUN 24, creatinine 1.4, glucose 97 and calcium 9.0. Total bilirubin this morning was 19.4, direct bilirubin 15.5, AST 169, ALT 122, alkaline phosphatase 398, total protein 6.5, albumin 2.1. UA shows large bilirubin, wbc's 1-4, leukocyte esterase negative, trace nitrite not performed. Chest x-ray shows no acute abnormality. Ultrasound report shows: 1. Hepatomegaly with diffuse hepatic steatosis. 2. Biliary dilation with suggestion of choledocholithiasis, limited visualization. MRCP with and without contrast is recommended for further evaluation and treatment. MRCP report pending at this time. IMPRESSION: 1. Choledocholithiasis. 2. Recurrent jaundice. 3. Weight loss. 4. Malaise and fatigue. 5. History of Serratia marcescens bacteremia in 12/2016, treated. 6. Status post appendectomy and liver biopsy in 12/2016. 7. History of diverticulosis on recent colonoscopy. 8. Status post cholecystectomy, ERCP x 2 with sphincterotomy. 9. History of vomiting, now resolved. 10. GERD. 11. Hypertension. 12. DJD, chronic, stable. RECOMMENDATIONS: 1. GI consulted. 2. Status post MRCP done today, report pending. 3. We will not start on empiric antibiotics at this time.We will discontinue levaquin as the patient has asymptomatic bacteriuria at this time. 4. Low threshold to start broad spectrum antibiotics if the patient has systemic symptoms or worsening of abdominal pain. 5. If the patient develops symptoms, please send UA and urine culture. 6. If the patient has temperature greater than 101, please send blood cultures x 2. Thank you, Dr. Black for consulting ID to participate in this patient's care. We will follow along with you. TINY MOLINA MD DR: ADALBERTO/elroy JOB#: [id number] / [id number] GINETTE
[2017-05-11 05:35] LABS: BASO % 0 % (0-3); EOS % 0 % (0-3); HEMATOCRIT 43.9 % (39.0-53.0); HEMOGLOBIN 14.8 g/dL (13.0-17.5); LYMPH # 5.4 x10^3/uL (1.0-4.8); LYMPH % 35 % (24-48); MEAN CORPUSCULAR HEMOGLOBIN 32 pg (25-35); MEAN CORPUSCULAR HGB CONC 34 g/dL (31-37); MEAN CORPUSCULAR VOLUME 94 fL (79-100); MONO % 3 % (0-9); NEUT % 62 % (31-73); PLATELET COUNT 283 x10^3/uL (140-400); RED BLOOD COUNT 4.69 x10^6/uL (4.30-5.70); WHITE BLOOD COUNT 15.6 x10^3/uL (4.0-11.0)
[2017-05-11] MEDS: MORPHINE SULFATE 4 MG/ML DISP.SYRIN. IV PRN ×2 (05:45→06:28)
[2017-05-11 06:16] LABS: ALBUMIN 2.1 g/dL (3.4-5.0); ALBUMIN/GLOBULIN RATIO 0.5 (1.0-1.7); CALCIUM 8.9 mg/dL (8.5-10.1); CREATININE 1.4 mg/dL (0.7-1.3); GFR 49.4; POTASSIUM 3.6 mmol/L (3.5-5.1); TOTAL BILIRUBIN 21.3 mg/dL (0.2-1.0)
[2017-05-11 07:10] VITALS: BP 108/69
[2017-05-11 07:14] LABS: TOTAL PROTEIN 6.2 g/dL (6.4-8.2)
[2017-05-11] MEDS: PANTOPRAZOLE 40 MG TABLET.DR. PO SCH (07:30)
[2017-05-11] MEDS: DOCUSATE SODIUM 100 MG CAPSULE. PO SCH ×2 (07:31→21:00)
[2017-05-11] MEDS: IV NORMAL SALINE 1000ML BAG 1,000 ML IV SCH ×2 (07:59→20:50)
[2017-05-11] MEDS ORDERED: KETOROLAC 30 MG/ML INJ. IV ONE (08:00)
[2017-05-11] MEDS: PANTOPRAZOLE IV PUSH 40 MG VIAL. IVP SCH (08:03)
--- NOTE | 2017-05-11 08:32 | RAD ---
EXAM: ERCP. HISTORY: Jaundice, choledocholithiasis. FINDINGS: 9 fluoroscopic images were obtained intraoperatively during an ERCP. Fluoroscopy time 6 minutes 55 seconds. These demonstrate cannulation of the biliary tree and injection of contrast. There are multiple filling defects within the proximal common duct consistent with choledocholithiasis. Later images demonstrate changes of balloon sweep and stone removal. The final image demonstrate common duct stent placement. Cholecystectomy clips are noted. IMPRESSION: 1. Removal of stones from the common duct and common duct stent placement.
--- NOTE | 2017-05-11 10:22 | PDOC ---
Infectious Disease Note Subjective Subjective pt underwent ERCP last night, is having nausea, abdo discomfort, bloating, no diarrhea, apetite is poor no gu symptoms, no sob,headache,cough ROS ROS as above Vital Sign Vital Signs Vital Signs Date Time Temp Pulse Resp B/P (MAP) Pulse Ox O2 Delivery O2 Flow Rate FiO2 05/11/17 07:30 94 Room Air 4.0 05/11/17 07:10 97.8 60 18 108/69 (82) 97.8 Physical Exam PHYSICAL EXAM GENERAL: NAD, Alert HEENT: icteric, no oral lesions NECK: Supple, no JVD, no LN LUNGS: Clear HEART: S1S2, no gallop, no murmur ABD: Soft, nondistended, mild tenderness,no organomegaly, no rebound EXT: No edema, no cyanosis [employer]: Alert, oriented x 3, no focal neurologic deficit SKIN: No rash IV: ok Labs Lab Laboratory Tests Test 05/11/17 04:00 White Blood Count 15.6 x10^3/uL (4.0-11.0) Red Blood Count 4.69 x10^6/uL (4.30-5.70) Hemoglobin 14.8 g/dL (13.0-17.5) Hematocrit 43.9 % (39.0-53.0) Mean Corpuscular Volume 94 fL (79-100) Mean Corpuscular Hemoglobin 32 pg (25-35) Mean Corpuscular Hemoglobin Concent 34 g/dL (31-37) Red Cell Distribution Width 15.0 % (11.5-14.5) Platelet Count 283 x10^3/uL (140-400) Neutrophils (%) (Auto) 62 % (31-73) Lymphocytes (%) (Auto) 35 % (24-48) Monocytes (%) (Auto) 3 % (0-9) Eosinophils (%) (Auto) 0 % (0-3) Basophils (%) (Auto) 0 % (0-3) Neutrophils # (Auto) 9.7 x10^3uL (1.8-7.7) Lymphocytes # (Auto) 5.4 x10^3/uL (1.0-4.8) Monocytes # (Auto) 0.5 x10^3/uL (0.0-1.1) Eosinophils # (Auto) 0.0 x10^3/uL (0.0-0.7) Basophils # (Auto) 0.0 x10^3/uL (0.0-0.2) Sodium Level 135 mmol/L (136-145) Potassium Level 3.6 mmol/L (3.5-5.1) Chloride Level 103 mmol/L (98-107) Carbon Dioxide Level 19 mmol/L (21-32) Anion Gap 13 (6-14) Blood Urea Nitrogen 24 mg/dL (8-26) Creatinine 1.4 mg/dL (0.7-1.3) Estimated GFR (Cockcroft-Gault) 49.4 BUN/Creatinine Ratio 17 (6-20) Glucose Level 124 mg/dL (70-99) Calcium Level 8.9 mg/dL (8.5-10.1) Total Bilirubin 21.3 mg/dL (0.2-1.0) Direct Bilirubin 19.0 mg/dL (0.0-0.2) Aspartate Amino Transf (AST/SGOT) 160 U/L (15-37) Alanine Aminotransferase (ALT/SGPT) 114 U/L (16-63) Alkaline Phosphatase 417 U/L (46-116) Total Protein 6.2 g/dL (6.4-8.2) Albumin 2.1 g/dL (3.4-5.0) Albumin/Globulin Ratio 0.5 (1.0-1.7) Amylase Level 3064 U/L (25-115) Lipase 80509 U/L (73-393) Objective Assessment 1. Choledocholithiasis.Recurrent jaundice.S/P ERCP 2.Leucocytosis likely reactive from ERCP 05/10,with stone removal 3. high lipase and amylase 3. Weight loss. 4. Malaise and fatigue. 5. History of Serratia marcescens bacteremia in 12/2016, treated. 6. Status post appendectomy and liver biopsy in 12/2016. 7. History of diverticulosis on recent colonoscopy. 8. Status post cholecystectomy, ERCP x 2 with sphincterotomy. 9. History of vomiting, now resolved. 10. GERD. 11. Hypertension. 12. DJD, chronic, stable. Plan Plan of Care Continue observation off antibiotics If the patient develops symptoms, please send UA and urine culture. If the patient has temperature greater than 101, please send blood cultures x 2. Low threshold to start broad spectrum antibiotics if the patient has systemic symptoms TINY MOLINA MD May 11, 2017 10:22
[2017-05-11 10:51] VITALS: BP 99/65
--- NOTE | 2017-05-11 13:20 | PDOC ---
Subjective: Subjective: Bad night w/ abd pain, better now. Objective: Objective: On PPN. No atbx per ID. Vital Signs: Vital Signs Date Time Temp Pulse Resp B/P (MAP) Pulse Ox O2 Delivery O2 Flow Rate FiO2 05/11/17 10:51 98.6 76 18 99/65 (76) 92 Room Air 98.6 05/11/17 07:30 4.0 Labs: Laboratory Tests Test 05/11/17 04:00 White Blood Count 15.6 x10^3/uL Red Blood Count 4.69 x10^6/uL Hemoglobin 14.8 g/dL Hematocrit 43.9 % Mean Corpuscular Volume 94 fL Mean Corpuscular Hemoglobin 32 pg Mean Corpuscular Hemoglobin Concent 34 g/dL Red Cell Distribution Width 15.0 % Platelet Count 283 x10^3/uL Neutrophils (%) (Auto) 62 % Lymphocytes (%) (Auto) 35 % Monocytes (%) (Auto) 3 % Eosinophils (%) (Auto) 0 % Basophils (%) (Auto) 0 % Neutrophils # (Auto) 9.7 x10^3uL Lymphocytes # (Auto) 5.4 x10^3/uL Monocytes # (Auto) 0.5 x10^3/uL Eosinophils # (Auto) 0.0 x10^3/uL Basophils # (Auto) 0.0 x10^3/uL Sodium Level 135 mmol/L Potassium Level 3.6 mmol/L Chloride Level 103 mmol/L Carbon Dioxide Level 19 mmol/L Anion Gap 13 Blood Urea Nitrogen 24 mg/dL Creatinine 1.4 mg/dL Estimated GFR (Cockcroft-Gault) 49.4 BUN/Creatinine Ratio 17 Glucose Level 124 mg/dL Calcium Level 8.9 mg/dL Total Bilirubin 21.3 mg/dL Direct Bilirubin 19.0 mg/dL Aspartate Amino Transf (AST/SGOT) 160 U/L Alanine Aminotransferase (ALT/SGPT) 114 U/L Alkaline Phosphatase 417 U/L Total Protein 6.2 g/dL Albumin 2.1 g/dL Albumin/Globulin Ratio 0.5 Amylase Level 3064 U/L Lipase 05635 U/L Imaging: ERCP cbd stricture dilated cholangitis with retained stones S/P balloon sweeps 10 Fr 5 cm stent placed PE: GEN: NAD LUNGS: CTAB HEART: RRR ABD: epigastric tenderness SKIN: jaundice NEURO/PSYCH: A & O 3 A/P: Recurrent jaundice -s/p cholecystectomy, previous ERCPs w/ sphincterotomy -s/p liver biopsy - chronic stasis, possible PSC H/o recurrent sepsis Choledocholithiasis -s/p ERCP w/ dil CBD stricture, cholangitis, balloon sweep, stent placement -post ERCP pancreatitis Leukocytosis -- Continue NPO, supportive care. ?atbx - will review w/ Dr. Arias. GUILLERMINA JAUREGUI May 11, 2017 13:20
--- NOTE | 2017-05-11 13:45 | PDOC ---
PROGRESS NOTES Chief Complaint Chief Complaint . Choledocholithiasis on US . JAundice and ICteric sclerae with hyperbilirubinemia 2/2 obstructive CBD with cholelithiasis on MRCP, s/p ERCP 05/10 with CBD stone removal and stent placement post ERCP pancreatitis Weight loss . MAlaise, fatigue . ELevated lFTS with obstructive hepatitis . 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 prior biliary obstruction with stones, s/p sphincterectomy 1y ago s/p cholecystectomy and sphinecteromy 08/2015 CKD3 moderate malnutrition, low albumin 2/2 liver dz h/o HTN plan: fu with GI, + MRCP with bile duct stones ERCP 05/10 labs LFT tmr npo for now ivf, + PPN add toradol for pain control higher WBC , worse LFT , levaquin added as per GI FOR POssible cholangitis DVT ppx History of Present Illness History of Present Illness ROS: no fever, chills, sob or chest pain jaundice high LFT WITH high bili, high lipase post ERCP + lower abd pain post ERCP higher WBC post ERCP Vitals Vitals Vital Signs Date Time Temp Pulse Resp B/P (MAP) Pulse Ox O2 Delivery O2 Flow Rate FiO2 05/11/17 10:51 98.6 76 18 99/65 (76) 92 Room Air 98.6 05/11/17 07:30 4.0 Physical Exam Physical Exam jaundice General: Alert, Oriented X3, Cooperative, No acute distress Heart: Regular rate, Normal S1 Lungs: Clear Abdomen: Normal bowel sounds, Soft, No hepatosplenomegaly, No masses, Other ( lower middle abd tenderness) Extremities: No clubbing, No cyanosis, No edema, Normal pulses, No tenderness/ swelling Skin: No rashes, No breakdown, No significant lesion Labs LABS Laboratory Tests Test 05/11/17 04:00 White Blood Count 15.6 x10^3/uL (4.0-11.0) Red Blood Count 4.69 x10^6/uL (4.30-5.70) Hemoglobin 14.8 g/dL (13.0-17.5) Hematocrit 43.9 % (39.0-53.0) Mean Corpuscular Volume 94 fL (79-100) Mean Corpuscular Hemoglobin 32 pg (25-35) Mean Corpuscular Hemoglobin Concent 34 g/dL (31-37) Red Cell Distribution Width 15.0 % (11.5-14.5) Platelet Count 283 x10^3/uL (140-400) Neutrophils (%) (Auto) 62 % (31-73) Lymphocytes (%) (Auto) 35 % (24-48) Monocytes (%) (Auto) 3 % (0-9) Eosinophils (%) (Auto) 0 % (0-3) Basophils (%) (Auto) 0 % (0-3) Neutrophils # (Auto) 9.7 x10^3uL (1.8-7.7) Lymphocytes # (Auto) 5.4 x10^3/uL (1.0-4.8) Monocytes # (Auto) 0.5 x10^3/uL (0.0-1.1) Eosinophils # (Auto) 0.0 x10^3/uL (0.0-0.7) Basophils # (Auto) 0.0 x10^3/uL (0.0-0.2) Sodium Level 135 mmol/L (136-145) Potassium Level 3.6 mmol/L (3.5-5.1) Chloride Level 103 mmol/L (98-107) Carbon Dioxide Level 19 mmol/L (21-32) Anion Gap 13 (6-14) Blood Urea Nitrogen 24 mg/dL (8-26) Creatinine 1.4 mg/dL (0.7-1.3) Estimated GFR (Cockcroft-Gault) 49.4 BUN/Creatinine Ratio 17 (6-20) Glucose Level 124 mg/dL (70-99) Calcium Level 8.9 mg/dL (8.5-10.1) Total Bilirubin 21.3 mg/dL (0.2-1.0) Direct Bilirubin 19.0 mg/dL (0.0-0.2) Aspartate Amino Transf (AST/SGOT) 160 U/L (15-37) Alanine Aminotransferase (ALT/SGPT) 114 U/L (16-63) Alkaline Phosphatase 417 U/L (46-116) Total Protein 6.2 g/dL (6.4-8.2) Albumin 2.1 g/dL (3.4-5.0) Albumin/Globulin Ratio 0.5 (1.0-1.7) Amylase Level 3064 U/L (25-115) Lipase 73093 U/L (73-393) Assessment and Plan Assessmemt and Plan Problems Medical Problems: (1) Jaundice Status: Acute (2) Liver failure Status: Acute Problems: Comment Review of Relevant I have reviewed the following items jadon (where applicable) has been applied. Labs Laboratory Tests Test 05/09/17 15:30 05/10/17 04:00 05/10/17 04:40 05/11/17 04:00 Cytomegalovirus IgG Antibody <0.60 U/mL (0.00-0.59) Cytomegalovirus IgM Antibody <30.0 AU/mL (0.0-29.9) Total Bilirubin 19.4 mg/dL (0.2-1.0) 21.3 mg/dL (0.2-1.0) Direct Bilirubin 15.5 mg/dL (0.0-0.2) 19.0 mg/dL (0.0-0.2) Aspartate Amino Transf (AST/SGOT) 169 U/L (15-37) 160 U/L (15-37) Alanine Aminotransferase (ALT/SGPT) 122 U/L (16-63) 114 U/L (16-63) Alkaline Phosphatase 398 U/L (46-116) 417 U/L (46-116) Total Protein 6.5 g/dL (6.4-8.2) 6.2 g/dL (6.4-8.2) Albumin 2.1 g/dL (3.4-5.0) 2.1 g/dL (3.4-5.0) Sodium Level 136 mmol/L (136-145) 135 mmol/L (136-145) Potassium Level 3.8 mmol/L (3.5-5.1) 3.6 mmol/L (3.5-5.1) Chloride Level 104 mmol/L (98-107) 103 mmol/L (98-107) Carbon Dioxide Level 21 mmol/L (21-32) 19 mmol/L (21-32) Anion Gap 11 (6-14) 13 (6-14) Blood Urea Nitrogen 24 mg/dL (8-26) 24 mg/dL (8-26) Creatinine 1.4 mg/dL (0.7-1.3) 1.4 mg/dL (0.7-1.3) Estimated GFR (Cockcroft-Gault) 49.4 49.4 Glucose Level 97 mg/dL (70-99) 124 mg/dL (70-99) Calcium Level 9.0 mg/dL (8.5-10.1) 8.9 mg/dL (8.5-10.1) White Blood Count 15.6 x10^3/uL (4.0-11.0) Red Blood Count 4.69 x10^6/uL (4.30-5.70) Hemoglobin 14.8 g/dL (13.0-17.5) Hematocrit 43.9 % (39.0-53.0) Mean Corpuscular Volume 94 fL (79-100) Mean Corpuscular Hemoglobin 32 pg (25-35) Mean Corpuscular Hemoglobin Concent 34 g/dL (31-37) Red Cell Distribution Width 15.0 % (11.5-14.5) Platelet Count 283 x10^3/uL (140-400) Neutrophils (%) (Auto) 62 % (31-73) Lymphocytes (%) (Auto) 35 % (24-48) Monocytes (%) (Auto) 3 % (0-9) Eosinophils (%) (Auto) 0 % (0-3) Basophils (%) (Auto) 0 % (0-3) Neutrophils # (Auto) 9.7 x10^3uL (1.8-7.7) Lymphocytes # (Auto) 5.4 x10^3/uL (1.0-4.8) Monocytes # (Auto) 0.5 x10^3/uL (0.0-1.1) Eosinophils # (Auto) 0.0 x10^3/uL (0.0-0.7) Basophils # (Auto) 0.0 x10^3/uL (0.0-0.2) BUN/Creatinine Ratio 17 (6-20) Albumin/Globulin Ratio 0.5 (1.0-1.7) Amylase Level 3064 U/L (25-115) Lipase 82568 U/L (73-393) Laboratory Tests Test 05/11/17 04:00 White Blood Count 15.6 x10^3/uL (4.0-11.0) Red Blood Count 4.69 x10^6/uL (4.30-5.70) Hemoglobin 14.8 g/dL (13.0-17.5) Hematocrit 43.9 % (39.0-53.0) Mean Corpuscular Volume 94 fL (79-100) Mean Corpuscular Hemoglobin 32 pg (25-35) Mean Corpuscular Hemoglobin Concent 34 g/dL (31-37) Red Cell Distribution Width 15.0 % (11.5-14.5) Platelet Count 283 x10^3/uL (140-400) Neutrophils (%) (Auto) 62 % (31-73) Lymphocytes (%) (Auto) 35 % (24-48) Monocytes (%) (Auto) 3 % (0-9) Eosinophils (%) (Auto) 0 % (0-3) Basophils (%) (Auto) 0 % (0-3) Neutrophils # (Auto) 9.7 x10^3uL (1.8-7.7) Lymphocytes # (Auto) 5.4 x10^3/uL (1.0-4.8) Monocytes # (Auto) 0.5 x10^3/uL (0.0-1.1) Eosinophils # (Auto) 0.0 x10^3/uL (0.0-0.7) Basophils # (Auto) 0.0 x10^3/uL (0.0-0.2) Sodium Level 135 mmol/L (136-145) Potassium Level 3.6 mmol/L (3.5-5.1) Chloride Level 103 mmol/L (98-107) Carbon Dioxide Level 19 mmol/L (21-32) Anion Gap 13 (6-14) Blood Urea Nitrogen 24 mg/dL (8-26) Creatinine 1.4 mg/dL (0.7-1.3) Estimated GFR (Cockcroft-Gault) 49.4 BUN/Creatinine Ratio 17 (6-20) Glucose Level 124 mg/dL (70-99) Calcium Level 8.9 mg/dL (8.5-10.1) Total Bilirubin 21.3 mg/dL (0.2-1.0) Direct Bilirubin 19.0 mg/dL (0.0-0.2) Aspartate Amino Transf (AST/SGOT) 160 U/L (15-37) Alanine Aminotransferase (ALT/SGPT) 114 U/L (16-63) Alkaline Phosphatase 417 U/L (46-116) Total Protein 6.2 g/dL (6.4-8.2) Albumin 2.1 g/dL (3.4-5.0) Albumin/Globulin Ratio 0.5 (1.0-1.7) Amylase Level 3064 U/L (25-115) Lipase 21579 U/L (73-393) Microbiology 05/09/17 Blood Culture - Preliminary, Resulted NO GROWTH AFTER 1 DAY 05/09/17 Urine Culture - Preliminary, Resulted 05/09/17 Urine Culture Result 1 (CHELE) - Preliminary, Resulted Medications Current Medications Docusate Sodium (Colace) 100 mg BID PO ; Start 05/09/17 at 21:00 Acetaminophen/ Hydrocodone Bitart (Lortab 5/325) 1 tab PRN Q6HRS PRN PO PAIN; Start 05/09/17 at 14:15; Status Cancel Pantoprazole Sodium (Protonix) 40 mg DAILYAC PO ; Start 05/09/17 at 14:30; Stop 05/11/17 at 07:46; Status DC Diphenhydramine HCl (Benadryl) 25 mg PRN QHS PRN PO INSOMNIA; Start 05/09/17 at 14:15 Acetaminophen/ Hydrocodone Bitart (Lortab 5/325) 1 tab PRN Q4HRS PRN PO MODERATE - SEVERE PAIN Last administered on 05/10/17 23:03; Start 05/09/17 at 14:15 Ondansetron HCl (Zofran) 4 mg PRN Q6HRS PRN IV NAUSEA/VOMITING; Start 05/09/17 at 14:15; Stop 05/10/17 at 16:18; Status DC Levofloxacin/ Dextrose 100 ml @ 100 mls/hr Q24H IV Last administered on 16:45; Start 05/09/17 at 16:00; Stop 05/10/17 at 10:51; Status DC Acetaminophen (Tylenol) 650 mg PRN Q6HRS PRN PO FEVER; Start 05/10/17 at 12:45 Ondansetron HCl (Zofran) 4 mg PRN Q6HRS PRN IV NAUSEA/VOMITING; Start 05/10/17 at 12:45 Morphine Sulfate 2 mg PRN Q2HR PRN IV PAIN Last administered on 05/11/17 06:28 ; Start 05/10/17 at 12:45 Tramadol HCl (Ultram) 50 mg PRN Q6HRS PRN PO MILD PAIN; Start 05/10/17 at 12:45 Hydralazine HCl (Apresoline Inj) 10 mg PRN Q4HRS PRN IVP ELEVATED BP, SEE COMMENTS; Start 05/10/17 at 12:45 Docusate Sodium (Colace) 100 mg PRN DAILY PRN PO CONSTIPATION; Start 05/10/17 at 12:45 Enoxaparin Sodium (Lovenox 40mg Syringe) 40 mg Q24H SQ ; Start 05/10/17 at 13:00 Iohexol (Omnipaque 300 Mg/ml) 100 ml STK-MED ONCE .ROUTE ; Start 05/10/17 at 14: 43; Stop 05/10/17 at 14:44; Status DC Ringer's Solution 1,000 ml @ 75 mls/hr 1X ONCE IV Last administered on t 16:05; Start 05/10/17 at 16:15; Stop 05/11/17 at 05:34; Status DC Propofol 20 ml @ As Directed STK-MED ONCE IV ; Start 05/10/17 at 16:39; Stop at 16:40; Status DC Succinylcholine Chloride (Anectine) 200 mg STK-MED ONCE .ROUTE ; Start 05/10/17 at 16:39; Stop 05/10/17 at 16:40; Status DC Lidocaine HCl (Lidocaine Pf 2% Vial) 5 ml STK-MED ONCE .ROUTE ; Start 05/10/17 at 16:39; Stop 05/10/17 at 16:40; Status DC Phenylephrine HCl (Jeffrey-Synephrine Inj) 10 mg STK-MED ONCE .ROUTE ; Start at 16:41; Stop 05/10/17 at 16:42; Status DC Levofloxacin/ Dextrose 100 ml @ As Directed STK-MED ONCE IV ; Start 05/10/17 at 17:44; Stop 05/10/17 at 17:45; Status DC Lidocaine HCl (Lidocaine Pf 2% Vial) 5 ml STK-MED ONCE .ROUTE ; Start 05/10/17 at 18:57; Stop 05/10/17 at 18:58; Status DC Iohexol (Omnipaque 300 Mg/ml) 100 ml STK-MED ONCE INT CAT Last administered on 05/10/17 18:58; Start 05/10/17 at 18:58; Stop 05/10/17 at 19:00; Status DC Levofloxacin/ Dextrose 100 ml @ 100 mls/hr Q24H IV Last administered on 08:03; Start 05/11/17 at 08:00 Simethicone (Gas-X) 80 mg PRN AFTMEALHC PRN PO GAS / BLOATING Last administered on 05/11/17 02:57; Start 05/11/17 at 02:45 Morphine Sulfate 4 mg PRN Q2HR PRN IV SEVERE PAIN; Start 05/11/17 at 06:15 Ketorolac Tromethamine (Toradol) 30 mg 1X ONCE IV Last administered on 07:57; Start 05/11/17 at 08:00; Stop 05/11/17 at 08:01; Status DC Sodium Chloride 1,000 ml @ 75 mls/hr [id number] IV Last administered on 07:59; Start 05/11/17 at 08:00 Pantoprazole Sodium (Protonix Vial) 40 mg DAILYAC IVP Last administered on 05/11 08:03; Start 05/11/17 at 08:00 Amino Acids/ Glycerin/ Electrolytes 1,000 ml @ 80 mls/hr [id number] IV ; Start at 12:00 Ketorolac Tromethamine (Toradol) 30 mg PRN Q6HRS PRN IV PAIN; Start 05/11/17 at 12:00; Stop 05/15/17 at 10:00 Active Scripts Active Pantoprazole Sodium 40 Mg Tablet. 40 Mg PO DAILYAC Reported Omeprazole 20 Mg Capsule. 20 Mg PO PRN Sulfamethoxazole-Tmp Ds Tablet (Sulfamethoxazole/Trimethoprim) 1 Each Tablet 1 Tab PO BID [facility] Rx Capsule (Lactobacillus Casei/Folic Acid) 1 Each Capsule 1 Each PO HS Hydrocodone-Apap 5-325 (Hydrocodone Bit/Acetaminophen) 1 Each Tablet 1-2 Tab PO PRN Q6HRS PRN LAST DOSE GIVEN: DATE: TIME: Colace (Docusate Sodium) 100 Mg Capsule 1 Cap PO BID Vitals/I & O Vital Sign - Last 24 Hours 05/10/17 05/10/17 05/10/17 05/10/17 15:50 18:56 19:13 19:31 Temp 98.0 97.9 98.0 97.9 Pulse 65 76 72 75 Resp 18 16 16 16 B/P (MAP) 101/62 (75) 142/73 137/79 133/89 Pulse Ox 97 99 99 98 O2 Delivery Room Air Nasal Cannula Nasal Cannula Room Air O2 Flow Rate 4 4 05/10/17 05/10/17 05/10/17 05/10/17 19:40 20:00 20:15 20:22 Temp 97.5 97.5 Pulse 71 72 70 Resp 20 20 16 B/P (MAP) 116/83 (94) 128/81 (97) 128/80 (96) Pulse Ox 98 96 96 O2 Delivery Room Air Room Air Room Air Room Air 05/10/17 05/10/17 05/10/17 05/10/17 20:30 21:00 21:30 22:00 Pulse 74 75 62 65 Resp 16 20 B/P (MAP) 122/70 (87) 111/74 (86) 107/68 (81) 101/60 (74) Pulse Ox 97 94 95 96 O2 Delivery Room Air Room Air Room Air Room Air 05/10/17 05/11/17 05/11/17 05/11/17 23:00 03:24 07:10 07:30 Temp 98.0 97.8 98.0 97.8 Pulse 61 63 60 Resp 20 18 B/P (MAP) 129/76 (93) 110/68 (82) 108/69 (82) Pulse Ox 95 94 95 94 O2 Delivery Room Air Room Air Room Air Room Air O2 Flow Rate 4.0 05/11/17 05/11/17 08:00 10:51 Temp 98.6 98.6 Pulse 76 Resp 18 B/P (MAP) 99/65 (76) Pulse Ox 92 O2 Delivery Room Air Room Air Nutrition Consultation Dietary Evaluation: Comments: REC adv to a Low Sodium diet Expected Outcomes/Goals: diet adv/ tolerance Interpretation of weight loss: >1-2% in 1 week Malnutrition Findings: Food and Nutrition Intake (Sev: <50% est energy req 5days Weight Status: Overweight NYLA HO MD May 11, 2017 13:45
[2017-05-11] MEDS: AMINO AC 3%/ELECTROLYTE/GLYCER 1,000 ML IV SCH (14:21)
[2017-05-11] MEDS: ENOXAPARIN 40 MG/0.4 ML SYRINGE. SQ SCH (14:21)
[2017-05-11] MEDS: KETOROLAC 30 MG/ML INJ. IV PRN ×2 (14:27→20:50)
[2017-05-11 14:46] VITALS: BP 125/78
[2017-05-11 19:55] VITALS: BP 114/64
[2017-05-11 20:12] LABS: EBNA IGG >600.0 U/mL (0.0-17.9)
[2017-05-11 23:21] VITALS: BP 109/74
[2017-05-12] MEDS: KETOROLAC 30 MG/ML INJ. IV PRN (03:11)
[2017-05-12] MEDS: AMINO AC 3%/ELECTROLYTE/GLYCER 1,000 ML IV SCH ×2 (03:11→13:00)
[2017-05-12 03:29] VITALS: BP 106/71
[2017-05-12 05:51] LABS: ALBUMIN 1.9 g/dL (3.4-5.0); ALBUMIN/GLOBULIN RATIO 0.5 (1.0-1.7); CALCIUM 8.7 mg/dL (8.5-10.1); CREATININE 1.4 mg/dL (0.7-1.3); GFR 49.4; POTASSIUM 3.8 mmol/L (3.5-5.1); TOTAL BILIRUBIN 18.7 mg/dL (0.2-1.0)
[2017-05-12] MEDS: MORPHINE SULFATE 4 MG/ML DISP.SYRIN. IV PRN ×4 (06:33→21:06)
[2017-05-12 07:00] VITALS: BP 119/73
[2017-05-12 07:35] LABS: DIRECT BILIRUBIN 17.3 mg/dL (0.0-0.2)
[2017-05-12] MEDS: DOCUSATE SODIUM 100 MG CAPSULE. PO SCH ×2 (09:00→21:00)
--- NOTE | 2017-05-12 09:07 | PDOC ---
Infectious Disease Note Subjective Subjective pt underwent ERCP last night, is having nausea, abdo discomfort, bloating, no diarrhea, apetite is poor no gu symptoms, no sob,headache,cough ROS ROS GEN: Denies fevers, chills, sweats HEENT: Denies blurred vision, sore throat CV: Denies chest pain RESP: Denies shortness of air, cough GI: Denies n/v/d NEURO: Denies confusion, dizziness MSK: Denies weakness, joint pain/swelling Vital Sign Vital Signs Vital Signs Date Time Temp Pulse Resp B/P (MAP) Pulse Ox O2 Delivery O2 Flow Rate FiO2 05/12/17 07:47 93 Room Air 4.0 05/12/17 03:29 97.3 74 16 106/71 (83) 97.3 Physical Exam PHYSICAL EXAM GENERAL: NAD, Alert HEENT: PERRL,icteric NECK: Supple, LUNGS: Clear HEART: S1S2 ABD: Soft, mild tenderness,no rebound EXT: No edema, PHARM SPEC: Alert, oriented x 3, no focal neurologic deficit SKIN: ,icterus No gen rash IV: ok Labs Lab Laboratory Tests Test 05/12/17 04:50 Sodium Level 136 mmol/L (136-145) Potassium Level 3.8 mmol/L (3.5-5.1) Chloride Level 104 mmol/L (98-107) Carbon Dioxide Level 20 mmol/L (21-32) Anion Gap 12 (6-14) Blood Urea Nitrogen 29 mg/dL (8-26) Creatinine 1.4 mg/dL (0.7-1.3) Estimated GFR (Cockcroft-Gault) 49.4 BUN/Creatinine Ratio 21 (6-20) Glucose Level 105 mg/dL (70-99) Calcium Level 8.7 mg/dL (8.5-10.1) Total Bilirubin 18.7 mg/dL (0.2-1.0) Direct Bilirubin 17.3 mg/dL (0.0-0.2) Aspartate Amino Transf (AST/SGOT) 123 U/L (15-37) Alanine Aminotransferase (ALT/SGPT) 95 U/L (16-63) Alkaline Phosphatase 372 U/L (46-116) Total Protein 6.0 g/dL (6.4-8.2) Albumin 1.9 g/dL (3.4-5.0) Albumin/Globulin Ratio 0.5 (1.0-1.7) Amylase Level 665 U/L (25-115) Lipase 3676 U/L (73-393) Micro bc neg uc neg Objective Assessment 1. Choledocholithiasis.Recurrent jaundice.S/P ERCP 2.Leucocytosis likely reactive from ERCP 05/10,with stone removal 3.postprocedure pancreatitis improving slowly 3. Weight loss. 4. Malaise and fatigue. 5. History of Serratia marcescens bacteremia in 12/2016, treated. 6. Status post appendectomy and liver biopsy in 12/2016. 7. History of diverticulosis on recent colonoscopy. 8. Status post cholecystectomy, ERCP x 2 with sphincterotomy. 9. History of vomiting, now resolved. 10. GERD. 11. Hypertension. 12. DJD, chronic, stable. Plan Plan of Care Continue observation off antibiotics If the patient develops symptoms, please send UA and urine culture. If the patient has temperature greater than 101, please send blood cultures x 2. Low threshold to start broad spectrum antibiotics if the patient has systemic symptoms TINY MOLINA MD May 12, 2017 09:07
--- NOTE | 2017-05-12 09:14 | PDOC ---
Subjective: Subjective: Back pain from laying around. No abd pain, feels hungry. Objective: Vital Signs: Vital Signs Date Time Temp Pulse Resp B/P (MAP) Pulse Ox O2 Delivery O2 Flow Rate FiO2 05/12/17 07:47 93 Room Air 4.0 05/12/17 03:29 97.3 74 16 106/71 (83) 97.3 Labs: Laboratory Tests Test 05/12/17 04:50 Sodium Level 136 mmol/L Potassium Level 3.8 mmol/L Chloride Level 104 mmol/L Carbon Dioxide Level 20 mmol/L Anion Gap 12 Blood Urea Nitrogen 29 mg/dL Creatinine 1.4 mg/dL Estimated GFR (Cockcroft-Gault) 49.4 BUN/Creatinine Ratio 21 Glucose Level 105 mg/dL Calcium Level 8.7 mg/dL Total Bilirubin 18.7 mg/dL Direct Bilirubin 17.3 mg/dL Aspartate Amino Transf (AST/SGOT) 123 U/L Alanine Aminotransferase (ALT/SGPT) 95 U/L Alkaline Phosphatase 372 U/L Total Protein 6.0 g/dL Albumin 1.9 g/dL Albumin/Globulin Ratio 0.5 Amylase Level 665 U/L Lipase 3676 U/L PE: GEN: NAD LUNGS: CTAB HEART: RRR ABD: S/ND/NT SKIN: jaundice NEURO/PSYCH: A & O 3 A/P: Recurrent jaundice -s/p cholecystectomy, previous ERCPs w/ sphincterotomy -s/p liver biopsy - chronic stasis, possible PSC -this admission, MRCP w/ choledocholithiasis; ERCP w/ CBD stricture (dilated), cholangitis, stone extraction, stent placement Post-ERCP pancreatitis - lipase falling, abd pain resolved Leukocytosis (no labs today) -on Levaquin w/ cholangitis -- CBC, possibly try clears, will check w/ Dr. Arias. GUILLERMINA JAUREGUI May 12, 2017 09:14
[2017-05-12] MEDS: IV NORMAL SALINE 1000ML BAG 1,000 ML IV SCH (09:19)
[2017-05-12] MEDS: PANTOPRAZOLE IV PUSH 40 MG VIAL. IVP SCH (09:20)
[2017-05-12 09:47] LABS: BASO # 0.2 x10^3/uL (0.0-0.2); BASO % 1 % (0-3); EOS % 0 % (0-3); HEMATOCRIT 44.7 % (39.0-53.0); LYMPH # 0.4 x10^3/uL (1.0-4.8); LYMPH % 2 % (24-48); MEAN CORPUSCULAR HEMOGLOBIN 32 pg (25-35); MEAN CORPUSCULAR HGB CONC 34 g/dL (31-37); MEAN CORPUSCULAR VOLUME 96 fL (79-100); MONO % 4 % (0-9); NEUT % 94 % (31-73); PLATELET COUNT 287 x10^3/uL (140-400); RED BLOOD COUNT 4.66 x10^6/uL (4.30-5.70); WHITE BLOOD COUNT 23.8 x10^3/uL (4.0-11.0)
[2017-05-12 11:00] VITALS: BP 111/73
[2017-05-12] MEDS: ENOXAPARIN 40 MG/0.4 ML SYRINGE. SQ SCH (14:12)
--- NOTE | 2017-05-12 14:31 | PDOC ---
PROGRESS NOTES Chief Complaint Chief Complaint . Choledocholithiasis on US . JAundice and ICteric sclerae with hyperbilirubinemia 2/2 obstructive CBD with cholelithiasis on MRCP, s/p ERCP 05/10 with CBD stone removal and stent placement post ERCP pancreatitis Weight loss . MAlaise, fatigue . ELevated lFTS with obstructive hepatitis . 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 prior biliary obstruction with stones, s/p sphincterectomy 1y ago s/p cholecystectomy and sphinecteromy 08/2015 CKD3 moderate malnutrition, low albumin 2/2 liver dz h/o HTN plan: fu with GI, + MRCP with bile duct stones ERCP 05/10 labs LFT tmr advance to clear liquid diet as per GI 05/12 ivf, + PPN add toradol for pain control higher WBC , worse LFT , levaquin added as per GI FOR POssible cholangitis DVT ppx sob later afternoon, will order CXR, albuterol prn, slightly decrease IVF History of Present Illness History of Present Illness ROS: no fever, chills, sob or chest pain jaundice high LFT WITH high bili, high lipase post ERCP, better today + lower abd pain post ERCP, better today higher WBC post ERCP, higher today Vitals Vitals Vital Signs Date Time Temp Pulse Resp B/P (MAP) Pulse Ox O2 Delivery O2 Flow Rate FiO2 05/12/17 14:06 95 Room Air 4.0 05/12/17 11:00 97.5 76 20 111/73 (86) 97.5 Physical Exam Physical Exam jaundice General: Alert, Oriented X3, Cooperative, No acute distress Heart: Regular rate, Normal S1 Lungs: Clear Abdomen: Normal bowel sounds, Soft, No hepatosplenomegaly, No masses, Other ( lower middle abd tenderness) Extremities: No clubbing, No cyanosis, No edema, Normal pulses, No tenderness/ swelling Skin: No rashes, No breakdown, No significant lesion Labs LABS Laboratory Tests Test 05/12/17 04:50 White Blood Count 23.8 x10^3/uL (4.0-11.0) Red Blood Count 4.66 x10^6/uL (4.30-5.70) Hemoglobin 15.0 g/dL (13.0-17.5) Hematocrit 44.7 % (39.0-53.0) Mean Corpuscular Volume 96 fL (79-100) Mean Corpuscular Hemoglobin 32 pg (25-35) Mean Corpuscular Hemoglobin Concent 34 g/dL (31-37) Red Cell Distribution Width 15.0 % (11.5-14.5) Platelet Count 287 x10^3/uL (140-400) Neutrophils (%) (Auto) 94 % (31-73) Lymphocytes (%) (Auto) 2 % (24-48) Monocytes (%) (Auto) 4 % (0-9) Eosinophils (%) (Auto) 0 % (0-3) Basophils (%) (Auto) 1 % (0-3) Neutrophils # (Auto) 22.3 x10^3uL (1.8-7.7) Lymphocytes # (Auto) 0.4 x10^3/uL (1.0-4.8) Monocytes # (Auto) 0.9 x10^3/uL (0.0-1.1) Eosinophils # (Auto) 0.0 x10^3/uL (0.0-0.7) Basophils # (Auto) 0.2 x10^3/uL (0.0-0.2) Sodium Level 136 mmol/L (136-145) Potassium Level 3.8 mmol/L (3.5-5.1) Chloride Level 104 mmol/L (98-107) Carbon Dioxide Level 20 mmol/L (21-32) Anion Gap 12 (6-14) Blood Urea Nitrogen 29 mg/dL (8-26) Creatinine 1.4 mg/dL (0.7-1.3) Estimated GFR (Cockcroft-Gault) 49.4 BUN/Creatinine Ratio 21 (6-20) Glucose Level 105 mg/dL (70-99) Calcium Level 8.7 mg/dL (8.5-10.1) Total Bilirubin 18.7 mg/dL (0.2-1.0) Direct Bilirubin 17.3 mg/dL (0.0-0.2) Aspartate Amino Transf (AST/SGOT) 123 U/L (15-37) Alanine Aminotransferase (ALT/SGPT) 95 U/L (16-63) Alkaline Phosphatase 372 U/L (46-116) Total Protein 6.0 g/dL (6.4-8.2) Albumin 1.9 g/dL (3.4-5.0) Albumin/Globulin Ratio 0.5 (1.0-1.7) Amylase Level 665 U/L (25-115) Lipase 3676 U/L (73-393) Assessment and Plan Assessmemt and Plan Problems Medical Problems: (1) Jaundice Status: Acute (2) Liver failure Status: Acute Problems: Comment Review of Relevant I have reviewed the following items jadon (where applicable) has been applied. Labs Laboratory Tests Test 05/11/17 04:00 05/12/17 04:50 White Blood Count 15.6 x10^3/uL (4.0-11.0) 23.8 x10^3/uL (4.0-11.0) Red Blood Count 4.69 x10^6/uL (4.30-5.70) 4.66 x10^6/uL (4.30-5.70) Hemoglobin 14.8 g/dL (13.0-17.5) 15.0 g/dL (13.0-17.5) Hematocrit 43.9 % (39.0-53.0) 44.7 % (39.0-53.0) Mean Corpuscular Volume 94 fL (79-100) 96 fL (79-100) Mean Corpuscular Hemoglobin 32 pg (25-35) 32 pg (25-35) Mean Corpuscular Hemoglobin Concent 34 g/dL (31-37) 34 g/dL (31-37) Red Cell Distribution Width 15.0 % (11.5-14.5) 15.0 % (11.5-14.5) Platelet Count 283 x10^3/uL (140-400) 287 x10^3/uL (140-400) Neutrophils (%) (Auto) 62 % (31-73) 94 % (31-73) Lymphocytes (%) (Auto) 35 % (24-48) 2 % (24-48) Monocytes (%) (Auto) 3 % (0-9) 4 % (0-9) Eosinophils (%) (Auto) 0 % (0-3) 0 % (0-3) Basophils (%) (Auto) 0 % (0-3) 1 % (0-3) Neutrophils # (Auto) 9.7 x10^3uL (1.8-7.7) 22.3 x10^3uL (1.8-7.7) Lymphocytes # (Auto) 5.4 x10^3/uL (1.0-4.8) 0.4 x10^3/uL (1.0-4.8) Monocytes # (Auto) 0.5 x10^3/uL (0.0-1.1) 0.9 x10^3/uL (0.0-1.1) Eosinophils # (Auto) 0.0 x10^3/uL (0.0-0.7) 0.0 x10^3/uL (0.0-0.7) Basophils # (Auto) 0.0 x10^3/uL (0.0-0.2) 0.2 x10^3/uL (0.0-0.2) Sodium Level 135 mmol/L (136-145) 136 mmol/L (136-145) Potassium Level 3.6 mmol/L (3.5-5.1) 3.8 mmol/L (3.5-5.1) Chloride Level 103 mmol/L (98-107) 104 mmol/L (98-107) Carbon Dioxide Level 19 mmol/L (21-32) 20 mmol/L (21-32) Anion Gap 13 (6-14) 12 (6-14) Blood Urea Nitrogen 24 mg/dL (8-26) 29 mg/dL (8-26) Creatinine 1.4 mg/dL (0.7-1.3) 1.4 mg/dL (0.7-1.3) Estimated GFR (Cockcroft-Gault) 49.4 49.4 BUN/Creatinine Ratio 17 (6-20) 21 (6-20) Glucose Level 124 mg/dL (70-99) 105 mg/dL (70-99) Calcium Level 8.9 mg/dL (8.5-10.1) 8.7 mg/dL (8.5-10.1) Total Bilirubin 21.3 mg/dL (0.2-1.0) 18.7 mg/dL (0.2-1.0) Direct Bilirubin 19.0 mg/dL (0.0-0.2) 17.3 mg/dL (0.0-0.2) Aspartate Amino Transf (AST/SGOT) 160 U/L (15-37) 123 U/L (15-37) Alanine Aminotransferase (ALT/SGPT) 114 U/L (16-63) 95 U/L (16-63) Alkaline Phosphatase 417 U/L (46-116) 372 U/L (46-116) Total Protein 6.2 g/dL (6.4-8.2) 6.0 g/dL (6.4-8.2) Albumin 2.1 g/dL (3.4-5.0) 1.9 g/dL (3.4-5.0) Albumin/Globulin Ratio 0.5 (1.0-1.7) 0.5 (1.0-1.7) Amylase Level 3064 U/L (25-115) 665 U/L (25-115) Lipase 79292 U/L (73-393) 3676 U/L (73-393) Laboratory Tests Test 05/12/17 04:50 White Blood Count 23.8 x10^3/uL (4.0-11.0) Red Blood Count 4.66 x10^6/uL (4.30-5.70) Hemoglobin 15.0 g/dL (13.0-17.5) Hematocrit 44.7 % (39.0-53.0) Mean Corpuscular Volume 96 fL (79-100) Mean Corpuscular Hemoglobin 32 pg (25-35) Mean Corpuscular Hemoglobin Concent 34 g/dL (31-37) Red Cell Distribution Width 15.0 % (11.5-14.5) Platelet Count 287 x10^3/uL (140-400) Neutrophils (%) (Auto) 94 % (31-73) Lymphocytes (%) (Auto) 2 % (24-48) Monocytes (%) (Auto) 4 % (0-9) Eosinophils (%) (Auto) 0 % (0-3) Basophils (%) (Auto) 1 % (0-3) Neutrophils # (Auto) 22.3 x10^3uL (1.8-7.7) Lymphocytes # (Auto) 0.4 x10^3/uL (1.0-4.8) Monocytes # (Auto) 0.9 x10^3/uL (0.0-1.1) Eosinophils # (Auto) 0.0 x10^3/uL (0.0-0.7) Basophils # (Auto) 0.2 x10^3/uL (0.0-0.2) Sodium Level 136 mmol/L (136-145) Potassium Level 3.8 mmol/L (3.5-5.1) Chloride Level 104 mmol/L (98-107) Carbon Dioxide Level 20 mmol/L (21-32) Anion Gap 12 (6-14) Blood Urea Nitrogen 29 mg/dL (8-26) Creatinine 1.4 mg/dL (0.7-1.3) Estimated GFR (Cockcroft-Gault) 49.4 BUN/Creatinine Ratio 21 (6-20) Glucose Level 105 mg/dL (70-99) Calcium Level 8.7 mg/dL (8.5-10.1) Total Bilirubin 18.7 mg/dL (0.2-1.0) Direct Bilirubin 17.3 mg/dL (0.0-0.2) Aspartate Amino Transf (AST/SGOT) 123 U/L (15-37) Alanine Aminotransferase (ALT/SGPT) 95 U/L (16-63) Alkaline Phosphatase 372 U/L (46-116) Total Protein 6.0 g/dL (6.4-8.2) Albumin 1.9 g/dL (3.4-5.0) Albumin/Globulin Ratio 0.5 (1.0-1.7) Amylase Level 665 U/L (25-115) Lipase 3676 U/L (73-393) Microbiology 05/09/17 Blood Culture - Preliminary, Resulted NO GROWTH AFTER 2 DAYS 05/09/17 Urine Culture - Final, Complete 05/09/17 Urine Culture Result 1 (CHELE) - Final, Complete Medications Current Medications Docusate Sodium (Colace) 100 mg BID PO ; Start 05/09/17 at 21:00 Acetaminophen/ Hydrocodone Bitart (Lortab 5/325) 1 tab PRN Q6HRS PRN PO PAIN; Start 05/09/17 at 14:15; Status Cancel Pantoprazole Sodium (Protonix) 40 mg DAILYAC PO ; Start 05/09/17 at 14:30; Stop 05/11/17 at 07:46; Status DC Diphenhydramine HCl (Benadryl) 25 mg PRN QHS PRN PO INSOMNIA; Start 05/09/17 at 14:15 Acetaminophen/ Hydrocodone Bitart (Lortab 5/325) 1 tab PRN Q4HRS PRN PO MODERATE - SEVERE PAIN Last administered on 05/10/17 23:03; Start 05/09/17 at 14:15 Ondansetron HCl (Zofran) 4 mg PRN Q6HRS PRN IV NAUSEA/VOMITING; Start 05/09/17 at 14:15; Stop 05/10/17 at 16:18; Status DC Levofloxacin/ Dextrose 100 ml @ 100 mls/hr Q24H IV Last administered on 16:45; Start 05/09/17 at 16:00; Stop 05/10/17 at 10:51; Status DC Acetaminophen (Tylenol) 650 mg PRN Q6HRS PRN PO FEVER; Start 05/10/17 at 12:45 Ondansetron HCl (Zofran) 4 mg PRN Q6HRS PRN IV NAUSEA/VOMITING; Start 05/10/17 at 12:45 Morphine Sulfate 2 mg PRN Q2HR PRN IV PAIN Last administered on 05/12/17 06: 33; Start 05/10/17 at 12:45 Tramadol HCl (Ultram) 50 mg PRN Q6HRS PRN PO MILD PAIN; Start 05/10/17 at 12:45 Hydralazine HCl (Apresoline Inj) 10 mg PRN Q4HRS PRN IVP ELEVATED BP, SEE COMMENTS; Start 05/10/17 at 12:45 Docusate Sodium (Colace) 100 mg PRN DAILY PRN PO CONSTIPATION; Start 05/10/17 at 12:45 Enoxaparin Sodium (Lovenox 40mg Syringe) 40 mg Q24H SQ Last administered on 14:12; Start 05/10/17 at 13:00 Iohexol (Omnipaque 300 Mg/ml) 100 ml STK-MED ONCE .ROUTE ; Start 05/10/17 at 14: 43; Stop 05/10/17 at 14:44; Status DC Ringer's Solution 1,000 ml @ 75 mls/hr 1X ONCE IV Last administered on 16:05; Start 05/10/17 at 16:15; Stop 05/11/17 at 05:34; Status DC Propofol 20 ml @ As Directed STK-MED ONCE IV ; Start 05/10/17 at 16:39; Stop at 16:40; Status DC Succinylcholine Chloride (Anectine) 200 mg STK-MED ONCE .ROUTE ; Start 05/10/17 at 16:39; Stop 05/10/17 at 16:40; Status DC Lidocaine HCl (Lidocaine Pf 2% Vial) 5 ml STK-MED ONCE .ROUTE ; Start 05/10/17 at 16:39; Stop 05/10/17 at 16:40; Status DC Phenylephrine HCl (Jeffrey-Synephrine Inj) 10 mg STK-MED ONCE .ROUTE ; Start at 16:41; Stop 05/10/17 at 16:42; Status DC Levofloxacin/ Dextrose 100 ml @ As Directed STK-MED ONCE IV ; Start 05/10/17 at 17:44; Stop 05/10/17 at 17:45; Status DC Lidocaine HCl (Lidocaine Pf 2% Vial) 5 ml STK-MED ONCE .ROUTE ; Start 05/10/17 at 18:57; Stop 05/10/17 at 18:58; Status DC Iohexol (Omnipaque 300 Mg/ml) 100 ml STK-MED ONCE INT CAT Last administered on 05/10/17 18:58; Start 05/10/17 at 18:58; Stop 05/10/17 at 19:00; Status DC Levofloxacin/ Dextrose 100 ml @ 100 mls/hr Q24H IV Last administered on 09:20; Start 05/11/17 at 08:00 Simethicone (Gas-X) 80 mg PRN AFTMEALHC PRN PO GAS / BLOATING Last administered on 05/11/17 02:57; Start 05/11/17 at 02:45 Morphine Sulfate 4 mg PRN Q2HR PRN IV SEVERE PAIN Last administered on 14:06; Start 05/11/17 at 06:15 Ketorolac Tromethamine (Toradol) 30 mg 1X ONCE IV Last administered on 07:57; Start 05/11/17 at 08:00; Stop 05/11/17 at 08:01; Status DC Sodium Chloride 1,000 ml @ 75 mls/hr [id number] IV Last administered on 09:19; Start 05/11/17 at 08:00 Pantoprazole Sodium (Protonix Vial) 40 mg DAILYAC IVP Last administered on 09:20; Start 05/11/17 at 08:00 Amino Acids/ Glycerin/ Electrolytes 1,000 ml @ 80 mls/hr [id number] IV Last administered on 05/12/17 03:11; Start 05/11/17 at 12:00 Ketorolac Tromethamine (Toradol) 30 mg PRN Q6HRS PRN IV PAIN Last administered on 05/12/17 03:11; Start 05/11/17 at 12:00; Stop 05/15/17 at 10:00 Levofloxacin/ Dextrose 100 ml @ 100 mls/hr Q24H IV ; Start 05/11/17 at 18:00; Status Cancel Active Scripts Active Pantoprazole Sodium 40 Mg Tablet. 40 Mg PO DAILYAC Reported Omeprazole 20 Mg Capsule. 20 Mg PO PRN Sulfamethoxazole-Tmp Ds Tablet (Sulfamethoxazole/Trimethoprim) 1 Each Tablet 1 Tab PO BID [facility] Rx Capsule (Lactobacillus Casei/Folic Acid) 1 Each Capsule 1 Each PO HS Hydrocodone-Apap 5-325 (Hydrocodone Bit/Acetaminophen) 1 Each Tablet 1-2 Tab PO PRN Q6HRS PRN LAST DOSE GIVEN: DATE: TIME: Colace (Docusate Sodium) 100 Mg Capsule 1 Cap PO BID Vitals/I & O Vital Sign - Last 24 Hours 05/11/17 05/11/17 05/11/17 05/11/17 14:46 19:55 20:00 23:21 Temp 97.6 97.6 98.2 97.6 97.6 98.2 Pulse 63 86 79 Resp 18 18 16 B/P (MAP) 125/78 (94) 114/64 (81) 109/74 (86) Pulse Ox 93 96 94 O2 Delivery Room Air Room Air Room Air Room Air 05/12/17 05/12/17 05/12/17 05/12/17 03:29 06:33 07:00 07:47 Temp 97.3 96.4 97.3 96.4 Pulse 74 75 Resp 16 20 B/P (MAP) 106/71 (83) 119/73 (88) Pulse Ox 93 90 93 O2 Delivery Room Air Room Air Room Air Room Air O2 Flow Rate 4.0 05/12/17 05/12/17 05/12/17 08:00 11:00 14:06 Temp 97.5 97.5 Pulse 76 Resp 20 B/P (MAP) 111/73 (86) Pulse Ox 95 95 O2 Delivery Room Air Room Air Room Air O2 Flow Rate 4.0 Nutrition Consultation Dietary Evaluation: Comments: REC adv to a Low Sodium diet Expected Outcomes/Goals: diet adv/ tolerance Interpretation of weight loss: >1-2% in 1 week Malnutrition Findings: Food and Nutrition Intake (Sev: <50% est energy req 5days Weight Status: Overweight NYLA HO MD May 12, 2017 14:31
[2017-05-12] MEDS: ALBUTEROL SULFATE 2.5 MG/3 ML NEBU. NEB PRN (14:45)
[2017-05-12 15:00] VITALS: BP 118/71
--- NOTE | 2017-05-12 16:35 | RAD ---
Single view of the Chest 05/12/2017 4:28 PM Indication: Shortness of breath Comparison: Chest radiograph May 09, 2017 Findings: Decreased inspiratory volumes persist. Interval development of mild streaky opacities in the lung bases which most likely represent atelectasis. No pneumothorax is seen. Heart size remains top normal. Impression: Decreased inspiratory volumes with streaky opacities in the lung bases most likely reflecting atelectasis. If clinical concern persists, consider follow-up two-view chest radiograph
[2017-05-12 19:25] VITALS: BP 125/77
[2017-05-12] MEDS: LACTOBACILLUS RHAMNOSUS GG 1 CAPSULE. PO SCH (21:06)
[2017-05-12 23:51] VITALS: BP 133/80
[2017-05-13] MEDS: IV NORMAL SALINE 1000ML BAG 1,000 ML IV SCH ×2 (00:43→19:43)
[2017-05-13] MEDS: MORPHINE SULFATE 4 MG/ML DISP.SYRIN. IV PRN ×8 (02:17→22:03)
[2017-05-13 03:11] VITALS: BP 116/75
[2017-05-13] MEDS: AMINO AC 3%/ELECTROLYTE/GLYCER 1,000 ML IV SCH ×2 (05:24→17:05)
[2017-05-13 06:03] LABS: BASO % 0 % (0-3); EOS % 0 % (0-3); HEMATOCRIT 42.1 % (39.0-53.0); LYMPH # 0.3 x10^3/uL (1.0-4.8); LYMPH % 1 % (24-48); MEAN CORPUSCULAR HEMOGLOBIN 32 pg (25-35); MEAN CORPUSCULAR HGB CONC 33 g/dL (31-37); MEAN CORPUSCULAR VOLUME 95 fL (79-100); MONO % 5 % (0-9); NEUT % 94 % (31-73); PLATELET COUNT 276 x10^3/uL (140-400); RED BLOOD COUNT 4.43 x10^6/uL (4.30-5.70); RED CELL DISTRIBUTION WIDTH 15.2 % (11.5-14.5); WHITE BLOOD COUNT 24.3 x10^3/uL (4.0-11.0)
[2017-05-13 06:19] LABS: CALCIUM 9.1 mg/dL (8.5-10.1); GFR 72.8; POTASSIUM 4.3 mmol/L (3.5-5.1)
[2017-05-13 07:00] VITALS: BP 141/70
[2017-05-13 07:03] LABS: ALBUMIN 1.6 g/dL (3.4-5.0); DIRECT BILIRUBIN 14.4 mg/dL (0.0-0.2); TOTAL BILIRUBIN 16.8 mg/dL (0.2-1.0); TOTAL PROTEIN 5.8 g/dL (6.4-8.2)
[2017-05-13] MEDS: DOCUSATE SODIUM 100 MG CAPSULE. PO SCH ×2 (07:59→22:02)
[2017-05-13] MEDS: LACTOBACILLUS RHAMNOSUS GG 1 CAPSULE. PO SCH ×2 (07:59→22:02)
[2017-05-13] MEDS: PANTOPRAZOLE IV PUSH 40 MG VIAL. IVP SCH (08:01)
[2017-05-13] MEDS: HYDROcodone/APAP 5/325MG 1 TAB TABLET PO PRN (08:19)
--- NOTE | 2017-05-13 09:47 | PDOC ---
PROGRESS NOTES Chief Complaint Chief Complaint . Choledocholithiasis on US . JAundice and ICteric sclerae with hyperbilirubinemia 2/2 obstructive CBD with cholelithiasis on MRCP, s/p ERCP 05/10 with CBD stone removal and stent placement post ERCP pancreatitis Weight loss . MAlaise, fatigue . ELevated lFTS with obstructive hepatitis . 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 If clinical concern persists, consider follow-up two-view chest radiograph He appears tachypneic PLAN: Follow GI recs I kept his current liquid diet EBV positive -- tx? Will need to discuss with GI WIll get a 2 view CXR Vitals Vitals Vital Signs Date Time Temp Pulse Resp B/P (MAP) Pulse Ox O2 Delivery O2 Flow Rate FiO2 05/13/17 08:01 16 Room Air 05/13/17 07:00 98.2 83 141/70 (93) 92 98.2 05/12/17 18:16 4.0 Physical Exam Physical Exam jaundice General: Alert, Oriented X3, Cooperative, No acute distress Heart: Regular rate, Normal S1 Lungs: Clear Abdomen: Normal bowel sounds, Soft, No hepatosplenomegaly, No masses, Other ( lower middle abd tenderness) Extremities: No clubbing, No cyanosis, No edema, Normal pulses, No tenderness/ swelling Skin: No rashes, No breakdown, No significant lesion Labs LABS Laboratory Tests Test 05/13/17 05:20 White Blood Count 24.3 x10^3/uL (4.0-11.0) Red Blood Count 4.43 x10^6/uL (4.30-5.70) Hemoglobin 14.0 g/dL (13.0-17.5) Hematocrit 42.1 % (39.0-53.0) Mean Corpuscular Volume 95 fL (79-100) Mean Corpuscular Hemoglobin 32 pg (25-35) Mean Corpuscular Hemoglobin Concent 33 g/dL (31-37) Red Cell Distribution Width 15.2 % (11.5-14.5) Platelet Count 276 x10^3/uL (140-400) Neutrophils (%) (Auto) 94 % (31-73) Lymphocytes (%) (Auto) 1 % (24-48) Monocytes (%) (Auto) 5 % (0-9) Eosinophils (%) (Auto) 0 % (0-3) Basophils (%) (Auto) 0 % (0-3) Neutrophils # (Auto) 22.8 x10^3uL (1.8-7.7) Lymphocytes # (Auto) 0.3 x10^3/uL (1.0-4.8) Monocytes # (Auto) 1.1 x10^3/uL (0.0-1.1) Eosinophils # (Auto) 0.0 x10^3/uL (0.0-0.7) Basophils # (Auto) 0.0 x10^3/uL (0.0-0.2) Sodium Level 135 mmol/L (136-145) Potassium Level 4.3 mmol/L (3.5-5.1) Chloride Level 104 mmol/L (98-107) Carbon Dioxide Level 21 mmol/L (21-32) Anion Gap 10 (6-14) Blood Urea Nitrogen 23 mg/dL (8-26) Creatinine 1.0 mg/dL (0.7-1.3) Estimated GFR (Cockcroft-Gault) 72.8 Glucose Level 99 mg/dL (70-99) Calcium Level 9.1 mg/dL (8.5-10.1) Total Bilirubin 16.8 mg/dL (0.2-1.0) Direct Bilirubin 14.4 mg/dL (0.0-0.2) Aspartate Amino Transf (AST/SGOT) 111 U/L (15-37) Alanine Aminotransferase (ALT/SGPT) 79 U/L (16-63) Alkaline Phosphatase 320 U/L (46-116) Total Protein 5.8 g/dL (6.4-8.2) Albumin 1.6 g/dL (3.4-5.0) Lipase 1419 U/L (73-393) Review of Systems Review of Systems weak, soa, jaundiced, minimal abd pain Assessment and Plan Assessmemt and Plan Problems Medical Problems: (1) Jaundice Status: Acute (2) Liver failure Status: Acute Problems: Comment Review of Relevant I have reviewed the following items jadon (where applicable) has been applied. Labs Laboratory Tests Test 05/12/17 04:50 05/13/17 05:20 White Blood Count 23.8 x10^3/uL (4.0-11.0) 24.3 x10^3/uL (4.0-11.0) Red Blood Count 4.66 x10^6/uL (4.30-5.70) 4.43 x10^6/uL (4.30-5.70) Hemoglobin 15.0 g/dL (13.0-17.5) 14.0 g/dL (13.0-17.5) Hematocrit 44.7 % (39.0-53.0) 42.1 % (39.0-53.0) Mean Corpuscular Volume 96 fL (79-100) 95 fL (79-100) Mean Corpuscular Hemoglobin 32 pg (25-35) 32 pg (25-35) Mean Corpuscular Hemoglobin Concent 34 g/dL (31-37) 33 g/dL (31-37) Red Cell Distribution Width 15.0 % (11.5-14.5) 15.2 % (11.5-14.5) Platelet Count 287 x10^3/uL (140-400) 276 x10^3/uL (140-400) Neutrophils (%) (Auto) 94 % (31-73) 94 % (31-73) Lymphocytes (%) (Auto) 2 % (24-48) 1 % (24-48) Monocytes (%) (Auto) 4 % (0-9) 5 % (0-9) Eosinophils (%) (Auto) 0 % (0-3) 0 % (0-3) Basophils (%) (Auto) 1 % (0-3) 0 % (0-3) Neutrophils # (Auto) 22.3 x10^3uL (1.8-7.7) 22.8 x10^3uL (1.8-7.7) Lymphocytes # (Auto) 0.4 x10^3/uL (1.0-4.8) 0.3 x10^3/uL (1.0-4.8) Monocytes # (Auto) 0.9 x10^3/uL (0.0-1.1) 1.1 x10^3/uL (0.0-1.1) Eosinophils # (Auto) 0.0 x10^3/uL (0.0-0.7) 0.0 x10^3/uL (0.0-0.7) Basophils # (Auto) 0.2 x10^3/uL (0.0-0.2) 0.0 x10^3/uL (0.0-0.2) Sodium Level 136 mmol/L (136-145) 135 mmol/L (136-145) Potassium Level 3.8 mmol/L (3.5-5.1) 4.3 mmol/L (3.5-5.1) Chloride Level 104 mmol/L (98-107) 104 mmol/L (98-107) Carbon Dioxide Level 20 mmol/L (21-32) 21 mmol/L (21-32) Anion Gap 12 (6-14) 10 (6-14) Blood Urea Nitrogen 29 mg/dL (8-26) 23 mg/dL (8-26) Creatinine 1.4 mg/dL (0.7-1.3) 1.0 mg/dL (0.7-1.3) Estimated GFR (Cockcroft-Gault) 49.4 72.8 BUN/Creatinine Ratio 21 (6-20) Glucose Level 105 mg/dL (70-99) 99 mg/dL (70-99) Calcium Level 8.7 mg/dL (8.5-10.1) 9.1 mg/dL (8.5-10.1) Total Bilirubin 18.7 mg/dL (0.2-1.0) 16.8 mg/dL (0.2-1.0) Direct Bilirubin 17.3 mg/dL (0.0-0.2) 14.4 mg/dL (0.0-0.2) Aspartate Amino Transf (AST/SGOT) 123 U/L (15-37) 111 U/L (15-37) Alanine Aminotransferase (ALT/SGPT) 95 U/L (16-63) 79 U/L (16-63) Alkaline Phosphatase 372 U/L (46-116) 320 U/L (46-116) Total Protein 6.0 g/dL (6.4-8.2) 5.8 g/dL (6.4-8.2) Albumin 1.9 g/dL (3.4-5.0) 1.6 g/dL (3.4-5.0) Albumin/Globulin Ratio 0.5 (1.0-1.7) Amylase Level 665 U/L (25-115) Lipase 3676 U/L (73-393) 1419 U/L (73-393) Laboratory Tests Test 05/13/17 05:20 White Blood Count 24.3 x10^3/uL (4.0-11.0) Red Blood Count 4.43 x10^6/uL (4.30-5.70) Hemoglobin 14.0 g/dL (13.0-17.5) Hematocrit 42.1 % (39.0-53.0) Mean Corpuscular Volume 95 fL (79-100) Mean Corpuscular Hemoglobin 32 pg (25-35) Mean Corpuscular Hemoglobin Concent 33 g/dL (31-37) Red Cell Distribution Width 15.2 % (11.5-14.5) Platelet Count 276 x10^3/uL (140-400) Neutrophils (%) (Auto) 94 % (31-73) Lymphocytes (%) (Auto) 1 % (24-48) Monocytes (%) (Auto) 5 % (0-9) Eosinophils (%) (Auto) 0 % (0-3) Basophils (%) (Auto) 0 % (0-3) Neutrophils # (Auto) 22.8 x10^3uL (1.8-7.7) Lymphocytes # (Auto) 0.3 x10^3/uL (1.0-4.8) Monocytes # (Auto) 1.1 x10^3/uL (0.0-1.1) Eosinophils # (Auto) 0.0 x10^3/uL (0.0-0.7) Basophils # (Auto) 0.0 x10^3/uL (0.0-0.2) Sodium Level 135 mmol/L (136-145) Potassium Level 4.3 mmol/L (3.5-5.1) Chloride Level 104 mmol/L (98-107) Carbon Dioxide Level 21 mmol/L (21-32) Anion Gap 10 (6-14) Blood Urea Nitrogen 23 mg/dL (8-26) Creatinine 1.0 mg/dL (0.7-1.3) Estimated GFR (Cockcroft-Gault) 72.8 Glucose Level 99 mg/dL (70-99) Calcium Level 9.1 mg/dL (8.5-10.1) Total Bilirubin 16.8 mg/dL (0.2-1.0) Direct Bilirubin 14.4 mg/dL (0.0-0.2) Aspartate Amino Transf (AST/SGOT) 111 U/L (15-37) Alanine Aminotransferase (ALT/SGPT) 79 U/L (16-63) Alkaline Phosphatase 320 U/L (46-116) Total Protein 5.8 g/dL (6.4-8.2) Albumin 1.6 g/dL (3.4-5.0) Lipase 1419 U/L (73-393) Microbiology 05/09/17 Blood Culture - Preliminary, Resulted NO GROWTH AFTER 3 DAYS 05/09/17 Urine Culture - Final, Complete 05/09/17 Urine Culture Result 1 (CHELE) - Final, Complete Medications Current Medications Docusate Sodium (Colace) 100 mg BID PO Last administered on 05/13/17 07:59; Start 05/09/17 at 21:00 Acetaminophen/ Hydrocodone Bitart (Lortab 5/325) 1 tab PRN Q6HRS PRN PO PAIN; Start 05/09/17 at 14:15; Status Cancel Pantoprazole Sodium (Protonix) 40 mg DAILYAC PO ; Start 05/09/17 at 14:30; Stop 05/11/17 at 07:46; Status DC Diphenhydramine HCl (Benadryl) 25 mg PRN QHS PRN PO INSOMNIA; Start 05/09/17 at 14:15 Acetaminophen/ Hydrocodone Bitart (Lortab 5/325) 1 tab PRN Q4HRS PRN PO MODERATE - SEVERE PAIN Last administered on 05/13/17 08:19; Start 05/09/17 at 14:15 Ondansetron HCl (Zofran) 4 mg PRN Q6HRS PRN IV NAUSEA/VOMITING; Start 05/09/17 at 14:15; Stop 05/10/17 at 16:18; Status DC Levofloxacin/ Dextrose 100 ml @ 100 mls/hr Q24H IV Last administered on 16:45; Start 05/09/17 at 16:00; Stop 05/10/17 at 10:51; Status DC Acetaminophen (Tylenol) 650 mg PRN Q6HRS PRN PO FEVER; Start 05/10/17 at 12:45 Ondansetron HCl (Zofran) 4 mg PRN Q6HRS PRN IV NAUSEA/VOMITING; Start 05/10/17 at 12:45 Morphine Sulfate 2 mg PRN Q2HR PRN IV PAIN Last administered on 05/13/17 08: 01; Start 05/10/17 at 12:45 Tramadol HCl (Ultram) 50 mg PRN Q6HRS PRN PO MILD PAIN; Start 05/10/17 at 12:45 Hydralazine HCl (Apresoline Inj) 10 mg PRN Q4HRS PRN IVP ELEVATED BP, SEE COMMENTS; Start 05/10/17 at 12:45 Docusate Sodium (Colace) 100 mg PRN DAILY PRN PO CONSTIPATION; Start 05/10/17 at 12:45 Enoxaparin Sodium (Lovenox 40mg Syringe) 40 mg Q24H SQ Last administered on 14:12; Start 05/10/17 at 13:00 Iohexol (Omnipaque 300 Mg/ml) 100 ml STK-MED ONCE .ROUTE ; Start 05/10/17 at 14: 43; Stop 05/10/17 at 14:44; Status DC Ringer's Solution 1,000 ml @ 75 mls/hr 1X ONCE IV Last administered on 16:05; Start 05/10/17 at 16:15; Stop 05/11/17 at 05:34; Status DC Propofol 20 ml @ As Directed STK-MED ONCE IV ; Start 05/10/17 at 16:39; Stop at 16:40; Status DC Succinylcholine Chloride (Anectine) 200 mg STK-MED ONCE .ROUTE ; Start 05/10/17 at 16:39; Stop 05/10/17 at 16:40; Status DC Lidocaine HCl (Lidocaine Pf 2% Vial) 5 ml STK-MED ONCE .ROUTE ; Start 05/10/17 at 16:39; Stop 05/10/17 at 16:40; Status DC Phenylephrine HCl (Jeffrey-Synephrine Inj) 10 mg STK-MED ONCE .ROUTE ; Start at 16:41; Stop 05/10/17 at 16:42; Status DC Levofloxacin/ Dextrose 100 ml @ As Directed STK-MED ONCE IV ; Start 05/10/17 at 17:44; Stop 05/10/17 at 17:45; Status DC Lidocaine HCl (Lidocaine Pf 2% Vial) 5 ml STK-MED ONCE .ROUTE ; Start 05/10/17 at 18:57; Stop 05/10/17 at 18:58; Status DC Iohexol (Omnipaque 300 Mg/ml) 100 ml STK-MED ONCE INT CAT Last administered on 05/10/17 18:58; Start 05/10/17 at 18:58; Stop 05/10/17 at 19:00; Status DC Levofloxacin/ Dextrose 100 ml @ 100 mls/hr Q24H IV Last administered on 09:20; Start 05/11/17 at 08:00; Stop 05/12/17 at 19:03; Status DC Simethicone (Gas-X) 80 mg PRN AFTMEALHC PRN PO GAS / BLOATING Last administered on 05/11/17 02:57; Start 05/11/17 at 02:45 Morphine Sulfate 4 mg PRN Q2HR PRN IV SEVERE PAIN Last administered on 02:17; Start 05/11/17 at 06:15 Ketorolac Tromethamine (Toradol) 30 mg 1X ONCE IV Last administered on 07:57; Start 05/11/17 at 08:00; Stop 05/11/17 at 08:01; Status DC Sodium Chloride 1,000 ml @ 50 mls/hr Q20H IV Last administered on 05/13/17 00:43; Start 05/11/17 at 08:00 Pantoprazole Sodium (Protonix Vial) 40 mg DAILYAC IVP Last administered on 08:01; Start 05/11/17 at 08:00 Amino Acids/ Glycerin/ Electrolytes 1,000 ml @ 80 mls/hr [id number] IV Last administered on 05/13/17 05:24; Start 05/11/17 at 12:00 Ketorolac Tromethamine (Toradol) 30 mg PRN Q6HRS PRN IV PAIN Last administered on 05/12/17 03:11; Start 05/11/17 at 12:00; Stop 05/15/17 at 10:00 Levofloxacin/ Dextrose 100 ml @ 100 mls/hr Q24H IV ; Start 05/11/17 at 18:00; Status Cancel Albuterol Sulfate (Ventolin Neb Soln) 2.5 mg PRN Q4HRS PRN NEB SHORTNESS OF BREATH Last administered on 05/12/17 14:45; Start 05/12/17 at 14:30 Levofloxacin (Levaquin) 500 mg DAILY PO Last administered on 05/13/17 07:59; Start 05/13/17 at 09:00 Lactobacillus Rhamnosus (Culturelle) 1 cap BID PO Last administered on 07:59; Start 05/12/17 at 21:00 Active Scripts Active Pantoprazole Sodium 40 Mg Tablet. 40 Mg PO DAILYAC Reported Omeprazole 20 Mg Capsule. 20 Mg PO PRN Sulfamethoxazole-Tmp Ds Tablet (Sulfamethoxazole/Trimethoprim) 1 Each Tablet 1 Tab PO BID [facility] Rx Capsule (Lactobacillus Casei/Folic Acid) 1 Each Capsule 1 Each PO HS Hydrocodone-Apap 5-325 (Hydrocodone Bit/Acetaminophen) 1 Each Tablet 1-2 Tab PO PRN Q6HRS PRN LAST DOSE GIVEN: DATE: TIME: Colace (Docusate Sodium) 100 Mg Capsule 1 Cap PO BID Vitals/I & O Vital Sign - Last 24 Hours 05/12/17 05/12/17 05/12/17 05/12/17 11:00 14:06 14:48 15:00 Temp 97.5 97.5 97.5 97.5 Pulse 76 80 Resp 20 20 B/P (MAP) 111/73 (86) 118/71 (87) Pulse Ox 95 95 96 96 O2 Delivery Room Air Room Air Room Air Room Air O2 Flow Rate 4.0 05/12/17 05/12/17 05/12/17 05/12/17 17:23 18:16 19:25 20:00 Temp 97.5 97.5 Pulse 77 Resp 16 B/P (MAP) 125/77 (93) Pulse Ox 96 96 95 O2 Delivery Room Air Room Air Room Air O2 Flow Rate 4.0 4.0 05/12/17 05/12/17 05/13/17 05/13/17 21:06 23:51 02:17 02:45 Temp 97.6 97.6 Pulse 85 Resp 18 20 19 16 B/P (MAP) 133/80 (97) Pulse Ox 93 O2 Delivery Room Air Room Air Room Air Room Air 05/13/17 05/13/17 05/13/17 03:11 07:00 08:01 Temp 98.1 98.2 98.1 98.2 Pulse 81 83 Resp 18 20 16 B/P (MAP) 116/75 (89) 141/70 (93) Pulse Ox 92 92 O2 Delivery Room Air Room Air Room Air Intake and Output 05/13/17 05/13/17 05/14/17 15:00 23:00 07:00 Output Total 100 ml Balance -100 ml Nutrition Consultation Dietary Evaluation: Comments: REC adv to a Low Sodium diet Expected Outcomes/Goals: diet adv/ tolerance Interpretation of weight loss: >1-2% in 1 week Malnutrition Findings: Food and Nutrition Intake (Sev: <50% est energy req 5days Weight Status: Overweight KATJA GODINEZ MD May 13, 2017 09:47
--- NOTE | 2017-05-13 10:30 | RAD ---
EXAM: Chest, 2 views. HISTORY: Shortness of breath. COMPARISON: 05/12/2017. FINDINGS: Frontal and lateral views of the chest are obtained. There is stable to slight increased left lower lobe and a decision or infiltrate and suspected small left pleural effusion. There is no pneumothorax. The heart is normal in size. IMPRESSION: Stable to slight increased left lower lobe atelectasis or infiltrate and suspected small left pleural effusion.
[2017-05-13 10:55] VITALS: BP 121/76
[2017-05-13] MEDS: ENOXAPARIN 40 MG/0.4 ML SYRINGE. SQ SCH (12:32)
--- NOTE | 2017-05-13 12:49 | PDOC ---
Infectious Disease Note Subjective Subjective c/o some back pain from lying around too much Denies abdominal pain, N/V or diarrhea On clear liquid diet and PPN ROS ROS GEN: Denies fevers, chills, sweats CV: Denies chest pain RESP: Denies shortness of air, cough Vital Sign Vital Signs Vital Signs Date Time Temp Pulse Resp B/P (MAP) Pulse Ox O2 Delivery O2 Flow Rate FiO2 05/13/17 10:55 97.8 82 18 121/76 (91) 95 Room Air 97.8 05/12/17 18:16 4.0 Physical Exam PHYSICAL EXAM GENERAL: Lying down, NAD HEENT: + icterus, Oral cavity dry NECK: Supple LUNGS: Clear HEART: S1S2 ABD: Obese, soft, NT, BS active EXT: No edema, no cyanosis 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 + jaundiced IV: ok Labs Lab Laboratory Tests Test 05/13/17 05:20 White Blood Count 24.3 x10^3/uL (4.0-11.0) Red Blood Count 4.43 x10^6/uL (4.30-5.70) Hemoglobin 14.0 g/dL (13.0-17.5) Hematocrit 42.1 % (39.0-53.0) Mean Corpuscular Volume 95 fL (79-100) Mean Corpuscular Hemoglobin 32 pg (25-35) Mean Corpuscular Hemoglobin Concent 33 g/dL (31-37) Red Cell Distribution Width 15.2 % (11.5-14.5) Platelet Count 276 x10^3/uL (140-400) Neutrophils (%) (Auto) 94 % (31-73) Lymphocytes (%) (Auto) 1 % (24-48) Monocytes (%) (Auto) 5 % (0-9) Eosinophils (%) (Auto) 0 % (0-3) Basophils (%) (Auto) 0 % (0-3) Neutrophils # (Auto) 22.8 x10^3uL (1.8-7.7) Lymphocytes # (Auto) 0.3 x10^3/uL (1.0-4.8) Monocytes # (Auto) 1.1 x10^3/uL (0.0-1.1) Eosinophils # (Auto) 0.0 x10^3/uL (0.0-0.7) Basophils # (Auto) 0.0 x10^3/uL (0.0-0.2) Sodium Level 135 mmol/L (136-145) Potassium Level 4.3 mmol/L (3.5-5.1) Chloride Level 104 mmol/L (98-107) Carbon Dioxide Level 21 mmol/L (21-32) Anion Gap 10 (6-14) Blood Urea Nitrogen 23 mg/dL (8-26) Creatinine 1.0 mg/dL (0.7-1.3) Estimated GFR (Cockcroft-Gault) 72.8 Glucose Level 99 mg/dL (70-99) Calcium Level 9.1 mg/dL (8.5-10.1) Total Bilirubin 16.8 mg/dL (0.2-1.0) Direct Bilirubin 14.4 mg/dL (0.0-0.2) Aspartate Amino Transf (AST/SGOT) 111 U/L (15-37) Alanine Aminotransferase (ALT/SGPT) 79 U/L (16-63) Alkaline Phosphatase 320 U/L (46-116) Total Protein 5.8 g/dL (6.4-8.2) Albumin 1.6 g/dL (3.4-5.0) Lipase 1419 U/L (73-393) EXAM: Chest, 2 views. HISTORY: Shortness of breath. COMPARISON: 05/12/2017. FINDINGS: Frontal and lateral views of the chest are obtained. There is stable to slight increased left lower lobe and a decision or infiltrate and suspected small left pleural effusion. There is no pneumothorax. The heart is normal in size. IMPRESSION: Stable to slight increased left lower lobe atelectasis or infiltrate and suspected small left pleural effusion. Micro BLOOD CULTURE Preliminary NO GROWTH AFTER 3 DAYS URINE CULTURE RES 1 Final Comment No growth in 48 hours. Objective Assessment Choledocholithiasis and recurrent jaundice. s/p ERCP 05/10 with stone removal Leucocytosis, trending up Postprocedure pancreatitis improving slowly, Lipase > 23,000 now down to 1419 LLL atelectasis or infiltrate and suspected small left pleural effusion. Weight loss. Malaise and fatigue. History of Serratia marcescens bacteremia in 12/2016, treated. Status post appendectomy and liver biopsy, 02/01/2017 History of diverticulosis on recent colonoscopy. Status post cholecystectomy, ERCP x 2 with sphincterotomy. GERD. Hypertension. DJD, chronic, stable. Plan Plan of Care Levaquin restarted per GI. will observe Monitor WBC and temp. repeat CBC in am PT/OT Attending Co-Sign The patient was seen and interviewed as well as examined at the bedside. The chart was reviewed. The case was discussed. Agree with the plan of care. NADER TRIPP APRN May 13, 2017 12:49 MARILIN MOLINA MD May 13, 2017 15:38
[2017-05-13 15:00] VITALS: BP 131/48
[2017-05-13 19:00] VITALS: BP 121/84
[2017-05-13 23:40] VITALS: BP 117/73
[2017-05-14] MEDS: AMINO AC 3%/ELECTROLYTE/GLYCER 1,000 ML IV SCH ×2 (02:30→17:23)
[2017-05-14] MEDS: MORPHINE SULFATE 4 MG/ML DISP.SYRIN. IV PRN ×2 (03:00→06:31)
[2017-05-14] MEDS ORDERED: PNEUMOCOCCAL VAX SCREEN BY RX. MC PRN (03:30)
[2017-05-14 03:59] VITALS: BP 121/81
[2017-05-14 05:01] LABS: BASO % 0 % (0-3); EOS % 0 % (0-3); HEMATOCRIT 40.1 % (39.0-53.0); HEMOGLOBIN 13.5 g/dL (13.0-17.5); LYMPH # 0.3 x10^3/uL (1.0-4.8); LYMPH % 1 % (24-48); MEAN CORPUSCULAR HEMOGLOBIN 32 pg (25-35); MEAN CORPUSCULAR HGB CONC 34 g/dL (31-37); MEAN CORPUSCULAR VOLUME 95 fL (79-100); MONO % 7 % (0-9); NEUT % 92 % (31-73); PLATELET COUNT 308 x10^3/uL (140-400); RED BLOOD COUNT 4.23 x10^6/uL (4.30-5.70); RED CELL DISTRIBUTION WIDTH 15.3 % (11.5-14.5); WHITE BLOOD COUNT 23.6 x10^3/uL (4.0-11.0)
[2017-05-14 07:37] VITALS: BP 108/73
[2017-05-14 08:05] LABS: ALBUMIN 1.5 g/dL (3.4-5.0); DIRECT BILIRUBIN 13.9 mg/dL (0.0-0.2); TOTAL BILIRUBIN 15.9 mg/dL (0.2-1.0); TOTAL PROTEIN 5.8 g/dL (6.4-8.2)
[2017-05-14] MEDS: HYDROcodone/APAP 5/325MG 1 TAB TABLET PO PRN ×3 (09:12→22:56)
[2017-05-14] MEDS: DOCUSATE SODIUM 100 MG CAPSULE. PO SCH ×2 (09:12→22:07)
[2017-05-14] MEDS: LACTOBACILLUS RHAMNOSUS GG 1 CAPSULE. PO SCH ×2 (09:12→22:06)
[2017-05-14] MEDS: PANTOPRAZOLE IV PUSH 40 MG VIAL. IVP SCH (09:12)
[2017-05-14 10:53] VITALS: BP 105/69
--- NOTE | 2017-05-14 11:24 | PDOC ---
Infectious Disease Note Subjective Subjective Feeling alright Less back pain Denies abdominal pain, N/V or diarrhea Tolerating clear liquid diet and PPN ROS ROS GEN: Denies fevers, chills, sweats CV: Denies chest pain RESP: Denies shortness of air, cough GI: Denies n/v/d Vital Sign Vital Signs Vital Signs Date Time Temp Pulse Resp B/P (MAP) Pulse Ox O2 Delivery O2 Flow Rate FiO2 05/14/17 10:53 97.5 77 19 105/69 (81) 95 Room Air 97.5 05/14/17 08:00 2.0 Physical Exam PHYSICAL EXAM GENERAL: Lying down, NAD HEENT: + icterus, Oral cavity dry NECK: Supple LUNGS: Clear HEART: S1S2 ABD: Obese, soft, NT, BS active EXT: No edema, no cyanosis 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 + jaundiced IV: ok Labs Lab Laboratory Tests Test 05/14/17 04:00 05/14/17 05:20 White Blood Count 23.6 x10^3/uL (4.0-11.0) Red Blood Count 4.23 x10^6/uL (4.30-5.70) Hemoglobin 13.5 g/dL (13.0-17.5) Hematocrit 40.1 % (39.0-53.0) Mean Corpuscular Volume 95 fL (79-100) Mean Corpuscular Hemoglobin 32 pg (25-35) Mean Corpuscular Hemoglobin Concent 34 g/dL (31-37) Red Cell Distribution Width 15.3 % (11.5-14.5) Platelet Count 308 x10^3/uL (140-400) Neutrophils (%) (Auto) 92 % (31-73) Lymphocytes (%) (Auto) 1 % (24-48) Monocytes (%) (Auto) 7 % (0-9) Eosinophils (%) (Auto) 0 % (0-3) Basophils (%) (Auto) 0 % (0-3) Neutrophils # (Auto) 21.7 x10^3uL (1.8-7.7) Lymphocytes # (Auto) 0.3 x10^3/uL (1.0-4.8) Monocytes # (Auto) 1.5 x10^3/uL (0.0-1.1) Eosinophils # (Auto) 0.0 x10^3/uL (0.0-0.7) Basophils # (Auto) 0.0 x10^3/uL (0.0-0.2) Total Bilirubin 15.9 mg/dL (0.2-1.0) Direct Bilirubin 13.9 mg/dL (0.0-0.2) Aspartate Amino Transf (AST/SGOT) 114 U/L (15-37) Alanine Aminotransferase (ALT/SGPT) 74 U/L (16-63) Alkaline Phosphatase 288 U/L (46-116) Total Protein 5.8 g/dL (6.4-8.2) Albumin 1.5 g/dL (3.4-5.0) Lipase 598 U/L (73-393) Micro BLOOD CULTURE Preliminary NO GROWTH AFTER 4 DAYS URINE CULTURE RES 1 Final Comment No growth in 48 hours. Objective Assessment Choledocholithiasis and recurrent jaundice. s/p ERCP 05/10 with stone removal Leucocytosis, Postprocedure pancreatitis improving slowly, Lipase > 23,000 now down to 1419 LLL atelectasis or infiltrate and suspected small left pleural effusion. Weight loss. Malaise and fatigue. History of Serratia marcescens bacteremia in 12/2016, treated. Status post appendectomy and liver biopsy, 02/01/2017 History of diverticulosis on recent colonoscopy. Status post cholecystectomy, ERCP x 2 with sphincterotomy. GERD. Hypertension. DJD, chronic, stable. Plan Plan of Care Levaquin restarted per GI. will observe Monitor WBC and temp. PT/OT Attending Co-Sign The patient was seen and interviewed as well as examined at the bedside. The chart was reviewed. The case was discussed. Agree with the plan of care. NADER TRIPP APRN May 14, 2017 11:24 MARILIN MOLINA MD May 14, 2017 14:33
[2017-05-14] MEDS: ENOXAPARIN 40 MG/0.4 ML SYRINGE. SQ SCH (12:50)
[2017-05-14 15:15] VITALS: BP 102/64
--- NOTE | 2017-05-14 15:48 | PDOC ---
PROGRESS NOTES Chief Complaint Chief Complaint Choledocholithiasis on US . JAundice and ICteric sclerae with hyperbilirubinemia 2/2 obstructive CBD with cholelithiasis on MRCP, s/p ERCP 05/10 with CBD stone removal and stent placement post ERCP pancreatitis Weight loss . MAlaise, fatigue . ELevated lFTS with obstructive hepatitis . 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 CBC again tmr (WBC 23) HAs good ambulation Vitals Vitals Vital Signs Date Time Temp Pulse Resp B/P (MAP) Pulse Ox O2 Delivery O2 Flow Rate FiO2 05/14/17 15:15 97.3 76 19 102/64 (77) 95 Room Air 97.3 05/14/17 08:00 2.0 Physical Exam Physical Exam jaundice General: Alert, Oriented X3, Cooperative, No acute distress Heart: Regular rate, Normal S1 Lungs: Clear Abdomen: Normal bowel sounds, Soft, No hepatosplenomegaly, No masses, Other ( lower middle abd tenderness) Extremities: No clubbing, No cyanosis, No edema, Normal pulses, No tenderness/ swelling Skin: No rashes, No breakdown, No significant lesion Labs LABS Laboratory Tests Test 05/14/17 04:00 05/14/17 05:20 White Blood Count 23.6 x10^3/uL (4.0-11.0) Red Blood Count 4.23 x10^6/uL (4.30-5.70) Hemoglobin 13.5 g/dL (13.0-17.5) Hematocrit 40.1 % (39.0-53.0) Mean Corpuscular Volume 95 fL (79-100) Mean Corpuscular Hemoglobin 32 pg (25-35) Mean Corpuscular Hemoglobin Concent 34 g/dL (31-37) Red Cell Distribution Width 15.3 % (11.5-14.5) Platelet Count 308 x10^3/uL (140-400) Neutrophils (%) (Auto) 92 % (31-73) Lymphocytes (%) (Auto) 1 % (24-48) Monocytes (%) (Auto) 7 % (0-9) Eosinophils (%) (Auto) 0 % (0-3) Basophils (%) (Auto) 0 % (0-3) Neutrophils # (Auto) 21.7 x10^3uL (1.8-7.7) Lymphocytes # (Auto) 0.3 x10^3/uL (1.0-4.8) Monocytes # (Auto) 1.5 x10^3/uL (0.0-1.1) Eosinophils # (Auto) 0.0 x10^3/uL (0.0-0.7) Basophils # (Auto) 0.0 x10^3/uL (0.0-0.2) Total Bilirubin 15.9 mg/dL (0.2-1.0) Direct Bilirubin 13.9 mg/dL (0.0-0.2) Aspartate Amino Transf (AST/SGOT) 114 U/L (15-37) Alanine Aminotransferase (ALT/SGPT) 74 U/L (16-63) Alkaline Phosphatase 288 U/L (46-116) Total Protein 5.8 g/dL (6.4-8.2) Albumin 1.5 g/dL (3.4-5.0) Lipase 598 U/L (73-393) Review of Systems Review of Systems asleep Assessment and Plan Assessmemt and Plan Problems Medical Problems: (1) Jaundice Status: Acute (2) Liver failure Status: Acute Problems: Comment Review of Relevant I have reviewed the following items jadon (where applicable) has been applied. Labs Laboratory Tests Test 05/13/17 05:20 05/14/17 04:00 05/14/17 05:20 White Blood Count 24.3 x10^3/uL (4.0-11.0) 23.6 x10^3/uL (4.0-11.0) Red Blood Count 4.43 x10^6/uL (4.30-5.70) 4.23 x10^6/uL (4.30-5.70) Hemoglobin 14.0 g/dL (13.0-17.5) 13.5 g/dL (13.0-17.5) Hematocrit 42.1 % (39.0-53.0) 40.1 % (39.0-53.0) Mean Corpuscular Volume 95 fL (79-100) 95 fL (79-100) Mean Corpuscular Hemoglobin 32 pg (25-35) 32 pg (25-35) Mean Corpuscular Hemoglobin Concent 33 g/dL (31-37) 34 g/dL (31-37) Red Cell Distribution Width 15.2 % (11.5-14.5) 15.3 % (11.5-14.5) Platelet Count 276 x10^3/uL (140-400) 308 x10^3/uL (140-400) Neutrophils (%) (Auto) 94 % (31-73) 92 % (31-73) Lymphocytes (%) (Auto) 1 % (24-48) 1 % (24-48) Monocytes (%) (Auto) 5 % (0-9) 7 % (0-9) Eosinophils (%) (Auto) 0 % (0-3) 0 % (0-3) Basophils (%) (Auto) 0 % (0-3) 0 % (0-3) Neutrophils # (Auto) 22.8 x10^3uL (1.8-7.7) 21.7 x10^3uL (1.8-7.7) Lymphocytes # (Auto) 0.3 x10^3/uL (1.0-4.8) 0.3 x10^3/uL (1.0-4.8) Monocytes # (Auto) 1.1 x10^3/uL (0.0-1.1) 1.5 x10^3/uL (0.0-1.1) Eosinophils # (Auto) 0.0 x10^3/uL (0.0-0.7) 0.0 x10^3/uL (0.0-0.7) Basophils # (Auto) 0.0 x10^3/uL (0.0-0.2) 0.0 x10^3/uL (0.0-0.2) Sodium Level 135 mmol/L (136-145) Potassium Level 4.3 mmol/L (3.5-5.1) Chloride Level 104 mmol/L (98-107) Carbon Dioxide Level 21 mmol/L (21-32) Anion Gap 10 (6-14) Blood Urea Nitrogen 23 mg/dL (8-26) Creatinine 1.0 mg/dL (0.7-1.3) Estimated GFR (Cockcroft-Gault) 72.8 Glucose Level 99 mg/dL (70-99) Calcium Level 9.1 mg/dL (8.5-10.1) Total Bilirubin 16.8 mg/dL (0.2-1.0) 15.9 mg/dL (0.2-1.0) Direct Bilirubin 14.4 mg/dL (0.0-0.2) 13.9 mg/dL (0.0-0.2) Aspartate Amino Transf (AST/SGOT) 111 U/L (15-37) 114 U/L (15-37) Alanine Aminotransferase (ALT/SGPT) 79 U/L (16-63) 74 U/L (16-63) Alkaline Phosphatase 320 U/L (46-116) 288 U/L (46-116) Total Protein 5.8 g/dL (6.4-8.2) 5.8 g/dL (6.4-8.2) Albumin 1.6 g/dL (3.4-5.0) 1.5 g/dL (3.4-5.0) Lipase 1419 U/L (73-393) 598 U/L (73-393) Laboratory Tests Test 05/14/17 04:00 05/14/17 05:20 White Blood Count 23.6 x10^3/uL (4.0-11.0) Red Blood Count 4.23 x10^6/uL (4.30-5.70) Hemoglobin 13.5 g/dL (13.0-17.5) Hematocrit 40.1 % (39.0-53.0) Mean Corpuscular Volume 95 fL (79-100) Mean Corpuscular Hemoglobin 32 pg (25-35) Mean Corpuscular Hemoglobin Concent 34 g/dL (31-37) Red Cell Distribution Width 15.3 % (11.5-14.5) Platelet Count 308 x10^3/uL (140-400) Neutrophils (%) (Auto) 92 % (31-73) Lymphocytes (%) (Auto) 1 % (24-48) Monocytes (%) (Auto) 7 % (0-9) Eosinophils (%) (Auto) 0 % (0-3) Basophils (%) (Auto) 0 % (0-3) Neutrophils # (Auto) 21.7 x10^3uL (1.8-7.7) Lymphocytes # (Auto) 0.3 x10^3/uL (1.0-4.8) Monocytes # (Auto) 1.5 x10^3/uL (0.0-1.1) Eosinophils # (Auto) 0.0 x10^3/uL (0.0-0.7) Basophils # (Auto) 0.0 x10^3/uL (0.0-0.2) Total Bilirubin 15.9 mg/dL (0.2-1.0) Direct Bilirubin 13.9 mg/dL (0.0-0.2) Aspartate Amino Transf (AST/SGOT) 114 U/L (15-37) Alanine Aminotransferase (ALT/SGPT) 74 U/L (16-63) Alkaline Phosphatase 288 U/L (46-116) Total Protein 5.8 g/dL (6.4-8.2) Albumin 1.5 g/dL (3.4-5.0) Lipase 598 U/L (73-393) Microbiology 05/09/17 Blood Culture - Preliminary, Resulted NO GROWTH AFTER 4 DAYS 05/09/17 Urine Culture - Final, Complete 05/09/17 Urine Culture Result 1 (CHELE) - Final, Complete Medications Current Medications Docusate Sodium (Colace) 100 mg BID PO Last administered on 05/14/17t 09:12; Start 05/09/17 at 21:00 Acetaminophen/ Hydrocodone Bitart (Lortab 5/325) 1 tab PRN Q6HRS PRN PO PAIN; Start 05/09/17 at 14:15; Status Cancel Pantoprazole Sodium (Protonix) 40 mg DAILYAC PO ; Start 05/09/17 at 14:30; Stop 05/11/17 at 07:46; Status DC Diphenhydramine HCl (Benadryl) 25 mg PRN QHS PRN PO INSOMNIA; Start 05/09/17 at 14:15 Acetaminophen/ Hydrocodone Bitart (Lortab 5/325) 1 tab PRN Q4HRS PRN PO MODERATE - SEVERE PAIN Last administered on 05/14/17 09:12; Start 05/09/17 at 14:15 Ondansetron HCl (Zofran) 4 mg PRN Q6HRS PRN IV NAUSEA/VOMITING; Start 05/09/17 at 14:15; Stop 05/10/17 at 16:18; Status DC Levofloxacin/ Dextrose 100 ml @ 100 mls/hr Q24H IV Last administered on 16:45; Start 05/09/17 at 16:00; Stop 05/10/17 at 10:51; Status DC Acetaminophen (Tylenol) 650 mg PRN Q6HRS PRN PO FEVER; Start 05/10/17 at 12:45 Ondansetron HCl (Zofran) 4 mg PRN Q6HRS PRN IV NAUSEA/VOMITING; Start 05/10/17 at 12:45 Morphine Sulfate 2 mg PRN Q2HR PRN IV PAIN Last administered on 05/14/17 06: 31; Start 05/10/17 at 12:45 Tramadol HCl (Ultram) 50 mg PRN Q6HRS PRN PO MILD PAIN; Start 05/10/17 at 12:45 Hydralazine HCl (Apresoline Inj) 10 mg PRN Q4HRS PRN IVP ELEVATED BP, SEE COMMENTS; Start 05/10/17 at 12:45 Docusate Sodium (Colace) 100 mg PRN DAILY PRN PO CONSTIPATION; Start 05/10/17 at 12:45 Enoxaparin Sodium (Lovenox 40mg Syringe) 40 mg Q24H SQ Last administered on 12:50; Start 05/10/17 at 13:00 Iohexol (Omnipaque 300 Mg/ml) 100 ml STK-MED ONCE .ROUTE ; Start 05/10/17 at 14: 43; Stop 05/10/17 at 14:44; Status DC Ringer's Solution 1,000 ml @ 75 mls/hr 1X ONCE IV Last administered on 16:05; Start 05/10/17 at 16:15; Stop 05/11/17 at 05:34; Status DC Propofol 20 ml @ As Directed STK-MED ONCE IV ; Start 05/10/17 at 16:39; Stop at 16:40; Status DC Succinylcholine Chloride (Anectine) 200 mg STK-MED ONCE .ROUTE ; Start 05/10/17 at 16:39; Stop 05/10/17 at 16:40; Status DC Lidocaine HCl (Lidocaine Pf 2% Vial) 5 ml STK-MED ONCE .ROUTE ; Start 05/10/17 at 16:39; Stop 05/10/17 at 16:40; Status DC Phenylephrine HCl (Jeffrey-Synephrine Inj) 10 mg STK-MED ONCE .ROUTE ; Start at 16:41; Stop 05/10/17 at 16:42; Status DC Levofloxacin/ Dextrose 100 ml @ As Directed STK-MED ONCE IV ; Start 05/10/17 at 17:44; Stop 05/10/17 at 17:45; Status DC Lidocaine HCl (Lidocaine Pf 2% Vial) 5 ml STK-MED ONCE .ROUTE ; Start 05/10/17 at 18:57; Stop 05/10/17 at 18:58; Status DC Iohexol (Omnipaque 300 Mg/ml) 100 ml STK-MED ONCE INT CAT Last administered on 05/10/17 18:58; Start 05/10/17 at 18:58; Stop 05/10/17 at 19:00; Status DC Levofloxacin/ Dextrose 100 ml @ 100 mls/hr Q24H IV Last administered on 09:20; Start 05/11/17 at 08:00; Stop 05/12/17 at 19:03; Status DC Simethicone (Gas-X) 80 mg PRN AFTMEALHC PRN PO GAS / BLOATING Last administered on 05/11/17 02:57; Start 05/11/17 at 02:45 Morphine Sulfate 4 mg PRN Q2HR PRN IV SEVERE PAIN Last administered on 19:41; Start 05/11/17 at 06:15 Ketorolac Tromethamine (Toradol) 30 mg 1X ONCE IV Last administered on 07:57; Start 05/11/17 at 08:00; Stop 05/11/17 at 08:01; Status DC Sodium Chloride 1,000 ml @ 50 mls/hr Q20H IV Last administered on 05/13/17 19:43; Start 05/11/17 at 08:00 Pantoprazole Sodium (Protonix Vial) 40 mg DAILYAC IVP Last administered on 09:12; Start 05/11/17 at 08:00 Amino Acids/ Glycerin/ Electrolytes 1,000 ml @ 80 mls/hr [id number] IV Last administered on 05/14/17 02:30; Start 05/11/17 at 12:00 Ketorolac Tromethamine (Toradol) 30 mg PRN Q6HRS PRN IV PAIN Last administered on 05/12/17 03:11; Start 05/11/17 at 12:00; Stop 05/15/17 at 10:00 Levofloxacin/ Dextrose 100 ml @ 100 mls/hr Q24H IV ; Start 05/11/17 at 18:00; Status Cancel Albuterol Sulfate (Ventolin Neb Soln) 2.5 mg PRN Q4HRS PRN NEB SHORTNESS OF BREATH Last administered on 05/12/17 14:45; Start 05/12/17 at 14:30 Levofloxacin (Levaquin) 500 mg DAILY PO Last administered on 05/14/17 09:12; Start 05/13/17 at 09:00 Lactobacillus Rhamnosus (Culturelle) 1 cap BID PO Last administered on 09:12; Start 05/12/17 at 21:00 Pneumococcal Polyvalent Vaccine (Do NOT chart on this placeholder) 1 each PRN DAILY PRN MC LAST DATE UNKNOWN; Start 05/14/17 at 03:30; Status Cancel Pneumococcal Polyvalent Vaccine (Pneumovax 23) 0.5 ml ONCE ONCE VAX IM ; Start 05/16/17 at 09:00; Stop 05/16/17 at 09:01 Active Scripts Active Pantoprazole Sodium 40 Mg Tablet. 40 Mg PO DAILYAC Reported Omeprazole 20 Mg Capsule.dr 20 Mg PO PRN Sulfamethoxazole-Tmp Ds Tablet (Sulfamethoxazole/Trimethoprim) 1 Each Tablet 1 Tab PO BID [facility] Rx Capsule (Lactobacillus Casei/Folic Acid) 1 Each Capsule 1 Each PO HS Hydrocodone-Apap 5-325 (Hydrocodone Bit/Acetaminophen) 1 Each Tablet 1-2 Tab PO PRN Q6HRS PRN LAST DOSE GIVEN: DATE: TIME: Colace (Docusate Sodium) 100 Mg Capsule 1 Cap PO BID Vitals/I & O Vital Sign - Last 24 Hours 05/13/17 05/13/17 05/13/17 05/13/17 17:07 19:00 19:41 20:00 Temp 97.6 97.6 Pulse 98 Resp 22 19 B/P (MAP) 121/84 (96) Pulse Ox 91 O2 Delivery Room Air Room Air Room Air Nasal Cannula O2 Flow Rate 2.0 05/13/17 05/13/17 05/13/17 05/14/17 20:11 22:03 23:40 03:00 Temp 97.7 97.7 Pulse 102 Resp 18 19 22 18 B/P (MAP) 117/73 (88) Pulse Ox 93 O2 Delivery Nasal Cannula Nasal Cannula Nasal Cannula Nasal Cannula O2 Flow Rate 2.0 2.0 2.0 2.0 05/14/17 05/14/17 05/14/17 05/14/17 03:30 03:59 06:31 07:37 Temp 97.9 97.7 97.9 97.7 Pulse 87 86 Resp 18 20 21 20 B/P (MAP) 121/81 (94) 108/73 (85) Pulse Ox 92 94 O2 Delivery Nasal Cannula Nasal Cannula Nasal Cannula Nasal Cannula O2 Flow Rate 2.0 2.0 2.0 2.0 05/14/17 05/14/17 05/14/17 08:00 10:53 15:15 Temp 97.5 97.3 97.5 97.3 Pulse 77 76 Resp 19 19 B/P (MAP) 105/69 (81) 102/64 (77) Pulse Ox 95 95 O2 Delivery Nasal Cannula Room Air Room Air O2 Flow Rate 2.0 Intake and Output 05/14/17 05/14/17 05/15/17 15:00 23:00 07:00 Output Total 150 ml Balance -150 ml Nutrition Consultation Dietary Evaluation: Comments: REC adv to a Low Sodium diet Expected Outcomes/Goals: diet adv/ tolerance Interpretation of weight loss: >1-2% in 1 week Malnutrition Findings: Food and Nutrition Intake (Sev: <50% est energy req 5days Weight Status: Overweight KATJA GODINEZ MD May 14, 2017 15:48
[2017-05-14] MEDS: IV NORMAL SALINE 1000ML BAG 1,000 ML IV SCH (17:22)
[2017-05-14] MEDS: SIMETHICONE 80 MG TAB.CHEW PO PRN ×2 (17:32→22:07)
[2017-05-14 19:59] VITALS: BP 116/76
[2017-05-14 23:16] VITALS: BP 113/72
[2017-05-15] MEDS: HYDROcodone/APAP 5/325MG 1 TAB TABLET PO PRN ×2 (02:53→22:41)
[2017-05-15] MEDS: SIMETHICONE 80 MG TAB.CHEW PO PRN (03:11)
[2017-05-15 03:18] VITALS: BP 98/67
[2017-05-15 06:09] LABS: BASO % 0 % (0-3); EOS % 0 % (0-3); HEMATOCRIT 39.2 % (39.0-53.0); LYMPH % 5 % (24-48); MEAN CORPUSCULAR HEMOGLOBIN 32 pg (25-35); MEAN CORPUSCULAR HGB CONC 33 g/dL (31-37); MEAN CORPUSCULAR VOLUME 95 fL (79-100); MONO % 8 % (0-9); NEUT % 87 % (31-73); PLATELET COUNT 308 x10^3/uL (140-400); RED BLOOD COUNT 4.11 x10^6/uL (4.30-5.70); RED CELL DISTRIBUTION WIDTH 15.6 % (11.5-14.5); WHITE BLOOD COUNT 18.4 x10^3/uL (4.0-11.0)
[2017-05-15 07:00] VITALS: BP 110/67
[2017-05-15] MEDS: ALBUTEROL SULFATE 2.5 MG/3 ML NEBU. NEB PRN (07:59)
[2017-05-15] MEDS: PANTOPRAZOLE IV PUSH 40 MG VIAL. IVP SCH (09:01)
[2017-05-15] MEDS: AMINO AC 3%/ELECTROLYTE/GLYCER 1,000 ML IV SCH ×2 (09:01→22:42)
[2017-05-15] MEDS: LACTOBACILLUS RHAMNOSUS GG 1 CAPSULE. PO SCH ×2 (09:01→22:42)
[2017-05-15] MEDS: DOCUSATE SODIUM 100 MG CAPSULE. PO SCH ×2 (09:02→22:41)
[2017-05-15 09:25] LABS: ALBUMIN 1.5 g/dL (3.4-5.0); DIRECT BILIRUBIN 12.4 mg/dL (0.0-0.2); TOTAL BILIRUBIN 14.3 mg/dL (0.2-1.0); TOTAL PROTEIN 5.1 g/dL (6.4-8.2)
--- NOTE | 2017-05-15 10:27 | PDOC ---
Infectious Disease Note Subjective Subjective Feeling alright but fatigues easily Less back pain Denies abdominal pain, N/V or diarrhea Tolerating clear liquid diet and PPN ROS ROS GEN: Denies fevers, chills, sweats HEENT: Denies blurred vision, sore throat CV: Denies chest pain RESP: Denies shortness of air, cough GI: Denies n/v/d NEURO: Denies confusion, dizziness MSK: Denies weakness, joint pain/swelling Vital Sign Vital Signs Vital Signs Date Time Temp Pulse Resp B/P (MAP) Pulse Ox O2 Delivery O2 Flow Rate FiO2 05/15/17 07:52 98 Room Air 05/15/17 07:00 97.5 76 21 110/67 (81) 97.5 05/15/17 03:50 3.0 Physical Exam PHYSICAL EXAM GENERAL: Lying down, NAD HEENT: + icterus, Oral cavity dry NECK: Supple LUNGS: Clear HEART: S1S2 ABD: Obese, soft, NT, BS active EXT: No edema, no cyanosis 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 + jaundiced IV: ok Labs Lab Laboratory Tests Test 05/15/17 05:15 05/15/17 06:00 White Blood Count 18.4 x10^3/uL (4.0-11.0) Red Blood Count 4.11 x10^6/uL (4.30-5.70) Hemoglobin 13.0 g/dL (13.0-17.5) Hematocrit 39.2 % (39.0-53.0) Mean Corpuscular Volume 95 fL (79-100) Mean Corpuscular Hemoglobin 32 pg (25-35) Mean Corpuscular Hemoglobin Concent 33 g/dL (31-37) Red Cell Distribution Width 15.6 % (11.5-14.5) Platelet Count 308 x10^3/uL (140-400) Neutrophils (%) (Auto) 87 % (31-73) Lymphocytes (%) (Auto) 5 % (24-48) Monocytes (%) (Auto) 8 % (0-9) Eosinophils (%) (Auto) 0 % (0-3) Basophils (%) (Auto) 0 % (0-3) Neutrophils # (Auto) 16.0 x10^3uL (1.8-7.7) Lymphocytes # (Auto) 1.0 x10^3/uL (1.0-4.8) Monocytes # (Auto) 1.4 x10^3/uL (0.0-1.1) Eosinophils # (Auto) 0.1 x10^3/uL (0.0-0.7) Basophils # (Auto) 0.0 x10^3/uL (0.0-0.2) Total Bilirubin 14.3 mg/dL (0.2-1.0) Direct Bilirubin 12.4 mg/dL (0.0-0.2) Aspartate Amino Transf (AST/SGOT) 123 U/L (15-37) Alanine Aminotransferase (ALT/SGPT) 69 U/L (16-63) Alkaline Phosphatase 279 U/L (46-116) Total Protein 5.1 g/dL (6.4-8.2) Albumin 1.5 g/dL (3.4-5.0) Objective Assessment Choledocholithiasis and recurrent jaundice. s/p ERCP 05/10 with stone removal Leucocytosis - better - on Levofloxacin per GI 05/13 Postprocedure pancreatitis improving slowly, Lipase > 23,000 now down to 1419 LLL atelectasis or infiltrate and suspected small left pleural effusion. Weight loss. Malaise and fatigue. History of Serratia marcescens bacteremia in 12/2016, treated. Status post appendectomy and liver biopsy, 02/01/2017 History of diverticulosis on recent colonoscopy. Status post cholecystectomy, ERCP x 2 with sphincterotomy. GERD. Hypertension. DJD, chronic, stable. Plan Plan of Care Levaquin per GI. Please call with questions RUMA CORNELL MD May 15, 2017 10:27
[2017-05-15 11:00] VITALS: BP 112/71
[2017-05-15] MEDS: ENOXAPARIN 40 MG/0.4 ML SYRINGE. SQ SCH (13:25)
[2017-05-15] MEDS: IV NORMAL SALINE 1000ML BAG 1,000 ML IV SCH (13:42)
[2017-05-15 14:30] VITALS: BP 119/79
[2017-05-15] MEDS: FUROSEMIDE 20 MG TABLET PO SCH (17:45)
--- NOTE | 2017-05-15 17:46 | PDOC ---
G I PROGRESS NOTE Reason for Follow-up Jaundice Subjective More dyspneic Physical Exam CV S1 S2 Lungs decreased BS ABD distended, hypoactive BS Review of Relevant I have reviewed the following items jadon (where applicable) has been applied. Labs Laboratory Tests Test 05/14/17 04:00 05/14/17 05:20 05/15/17 05:15 05/15/17 06:00 White Blood Count 23.6 x10^3/uL (4.0-11.0) 18.4 x10^3/uL (4.0-11.0) Red Blood Count 4.23 x10^6/uL (4.30-5.70) 4.11 x10^6/uL (4.30-5.70) Hemoglobin 13.5 g/dL (13.0-17.5) 13.0 g/dL (13.0-17.5) Hematocrit 40.1 % (39.0-53.0) 39.2 % (39.0-53.0) Mean Corpuscular Volume 95 fL (79-100) 95 fL (79-100) Mean Corpuscular Hemoglobin 32 pg (25-35) 32 pg (25-35) Mean Corpuscular Hemoglobin Concent 34 g/dL (31-37) 33 g/dL (31-37) Red Cell Distribution Width 15.3 % (11.5-14.5) 15.6 % (11.5-14.5) Platelet Count 308 x10^3/uL (140-400) 308 x10^3/uL (140-400) Neutrophils (%) (Auto) 92 % (31-73) 87 % (31-73) Lymphocytes (%) (Auto) 1 % (24-48) 5 % (24-48) Monocytes (%) (Auto) 7 % (0-9) 8 % (0-9) Eosinophils (%) (Auto) 0 % (0-3) 0 % (0-3) Basophils (%) (Auto) 0 % (0-3) 0 % (0-3) Neutrophils # (Auto) 21.7 x10^3uL (1.8-7.7) 16.0 x10^3uL (1.8-7.7) Lymphocytes # (Auto) 0.3 x10^3/uL (1.0-4.8) 1.0 x10^3/uL (1.0-4.8) Monocytes # (Auto) 1.5 x10^3/uL (0.0-1.1) 1.4 x10^3/uL (0.0-1.1) Eosinophils # (Auto) 0.0 x10^3/uL (0.0-0.7) 0.1 x10^3/uL (0.0-0.7) Basophils # (Auto) 0.0 x10^3/uL (0.0-0.2) 0.0 x10^3/uL (0.0-0.2) Total Bilirubin 15.9 mg/dL (0.2-1.0) 14.3 mg/dL (0.2-1.0) Direct Bilirubin 13.9 mg/dL (0.0-0.2) 12.4 mg/dL (0.0-0.2) Aspartate Amino Transf (AST/SGOT) 114 U/L (15-37) 123 U/L (15-37) Alanine Aminotransferase (ALT/SGPT) 74 U/L (16-63) 69 U/L (16-63) Alkaline Phosphatase 288 U/L (46-116) 279 U/L (46-116) Total Protein 5.8 g/dL (6.4-8.2) 5.1 g/dL (6.4-8.2) Albumin 1.5 g/dL (3.4-5.0) 1.5 g/dL (3.4-5.0) Lipase 598 U/L (73-393) Laboratory Tests Test 05/15/17 05:15 05/15/17 06:00 White Blood Count 18.4 x10^3/uL (4.0-11.0) Red Blood Count 4.11 x10^6/uL (4.30-5.70) Hemoglobin 13.0 g/dL (13.0-17.5) Hematocrit 39.2 % (39.0-53.0) Mean Corpuscular Volume 95 fL (79-100) Mean Corpuscular Hemoglobin 32 pg (25-35) Mean Corpuscular Hemoglobin Concent 33 g/dL (31-37) Red Cell Distribution Width 15.6 % (11.5-14.5) Platelet Count 308 x10^3/uL (140-400) Neutrophils (%) (Auto) 87 % (31-73) Lymphocytes (%) (Auto) 5 % (24-48) Monocytes (%) (Auto) 8 % (0-9) Eosinophils (%) (Auto) 0 % (0-3) Basophils (%) (Auto) 0 % (0-3) Neutrophils # (Auto) 16.0 x10^3uL (1.8-7.7) Lymphocytes # (Auto) 1.0 x10^3/uL (1.0-4.8) Monocytes # (Auto) 1.4 x10^3/uL (0.0-1.1) Eosinophils # (Auto) 0.1 x10^3/uL (0.0-0.7) Basophils # (Auto) 0.0 x10^3/uL (0.0-0.2) Total Bilirubin 14.3 mg/dL (0.2-1.0) Direct Bilirubin 12.4 mg/dL (0.0-0.2) Aspartate Amino Transf (AST/SGOT) 123 U/L (15-37) Alanine Aminotransferase (ALT/SGPT) 69 U/L (16-63) Alkaline Phosphatase 279 U/L (46-116) Total Protein 5.1 g/dL (6.4-8.2) Albumin 1.5 g/dL (3.4-5.0) Microbiology 05/09/17 Blood Culture - Final, Complete NO GROWTH AFTER 5 DAYS 05/09/17 Urine Culture - Final, Complete 05/09/17 Urine Culture Result 1 (CHELE) - Final, Complete Medications Current Medications Docusate Sodium (Colace) 100 mg BID PO Last administered on 05/15/17t 09:02; Start 05/09/17 at 21:00 Acetaminophen/ Hydrocodone Bitart (Lortab 5/325) 1 tab PRN Q6HRS PRN PO PAIN; Start 05/09/17 at 14:15; Status Cancel Pantoprazole Sodium (Protonix) 40 mg DAILYAC PO ; Start 05/09/17 at 14:30; Stop 05/11/17 at 07:46; Status DC Diphenhydramine HCl (Benadryl) 25 mg PRN QHS PRN PO INSOMNIA Last administered on 05/14/17 22:07; Start 05/09/17 at 14:15 Acetaminophen/ Hydrocodone Bitart (Lortab 5/325) 1 tab PRN Q4HRS PRN PO MODERATE - SEVERE PAIN Last administered on 05/15/17 02:53; Start 05/09/17 at 14:15 Ondansetron HCl (Zofran) 4 mg PRN Q6HRS PRN IV NAUSEA/VOMITING; Start 05/09/17 at 14:15; Stop 05/10/17 at 16:18; Status DC Levofloxacin/ Dextrose 100 ml @ 100 mls/hr Q24H IV Last administered on 16:45; Start 05/09/17 at 16:00; Stop 05/10/17 at 10:51; Status DC Acetaminophen (Tylenol) 650 mg PRN Q6HRS PRN PO FEVER; Start 05/10/17 at 12:45 Ondansetron HCl (Zofran) 4 mg PRN Q6HRS PRN IV NAUSEA/VOMITING; Start 05/10/17 at 12:45 Morphine Sulfate 2 mg PRN Q2HR PRN IV PAIN Last administered on 05/14/17 06: 31; Start 05/10/17 at 12:45 Tramadol HCl (Ultram) 50 mg PRN Q6HRS PRN PO MILD PAIN; Start 05/10/17 at 12:45 Hydralazine HCl (Apresoline Inj) 10 mg PRN Q4HRS PRN IVP ELEVATED BP, SEE COMMENTS; Start 05/10/17 at 12:45 Docusate Sodium (Colace) 100 mg PRN DAILY PRN PO CONSTIPATION; Start 05/10/17 at 12:45 Enoxaparin Sodium (Lovenox 40mg Syringe) 40 mg Q24H SQ Last administered on 13:25; Start 05/10/17 at 13:00 Iohexol (Omnipaque 300 Mg/ml) 100 ml STK-MED ONCE .ROUTE ; Start 05/10/17 at 14: 43; Stop 05/10/17 at 14:44; Status DC Ringer's Solution 1,000 ml @ 75 mls/hr 1X ONCE IV Last administered on 16:05; Start 05/10/17 at 16:15; Stop 05/11/17 at 05:34; Status DC Propofol 20 ml @ As Directed STK-MED ONCE IV ; Start 05/10/17 at 16:39; Stop at 16:40; Status DC Succinylcholine Chloride (Anectine) 200 mg STK-MED ONCE .ROUTE ; Start 05/10/17 at 16:39; Stop 05/10/17 at 16:40; Status DC Lidocaine HCl (Lidocaine Pf 2% Vial) 5 ml STK-MED ONCE .ROUTE ; Start 05/10/17 at 16:39; Stop 05/10/17 at 16:40; Status DC Phenylephrine HCl (Jeffrey-Synephrine Inj) 10 mg STK-MED ONCE .ROUTE ; Start at 16:41; Stop 05/10/17 at 16:42; Status DC Levofloxacin/ Dextrose 100 ml @ As Directed STK-MED ONCE IV ; Start 05/10/17 at 17:44; Stop 05/10/17 at 17:45; Status DC Lidocaine HCl (Lidocaine Pf 2% Vial) 5 ml STK-MED ONCE .ROUTE ; Start 05/10/17 at 18:57; Stop 05/10/17 at 18:58; Status DC Iohexol (Omnipaque 300 Mg/ml) 100 ml STK-MED ONCE INT CAT Last administered on 05/10/17 18:58; Start 05/10/17 at 18:58; Stop 05/10/17 at 19:00; Status DC Levofloxacin/ Dextrose 100 ml @ 100 mls/hr Q24H IV Last administered on 09:20; Start 05/11/17 at 08:00; Stop 05/12/17 at 19:03; Status DC Simethicone (Gas-X) 80 mg PRN AFTMEALHC PRN PO GAS / BLOATING Last administered on 05/15/17 03:11; Start 05/11/17 at 02:45 Morphine Sulfate 4 mg PRN Q2HR PRN IV SEVERE PAIN Last administered on 19:41; Start 05/11/17 at 06:15 Ketorolac Tromethamine (Toradol) 30 mg 1X ONCE IV Last administered on 07:57; Start 05/11/17 at 08:00; Stop 05/11/17 at 08:01; Status DC Sodium Chloride 1,000 ml @ 50 mls/hr Q20H IV Last administered on 05/15/17 13:42; Start 05/11/17 at 08:00 Pantoprazole Sodium (Protonix Vial) 40 mg DAILYAC IVP Last administered on 09:01; Start 05/11/17 at 08:00 Amino Acids/ Glycerin/ Electrolytes 1,000 ml @ 80 mls/hr [id number] IV Last administered on 05/15/17 09:01; Start 05/11/17 at 12:00 Ketorolac Tromethamine (Toradol) 30 mg PRN Q6HRS PRN IV PAIN Last administered on 05/12/17 03:11; Start 05/11/17 at 12:00; Stop 05/15/17 at 10:00; Status DC Levofloxacin/ Dextrose 100 ml @ 100 mls/hr Q24H IV ; Start 05/11/17 at 18:00; Status Cancel Albuterol Sulfate (Ventolin Neb Soln) 2.5 mg PRN Q4HRS PRN NEB SHORTNESS OF BREATH Last administered on 05/15/17 07:59; Start 05/12/17 at 14:30 Levofloxacin (Levaquin) 500 mg DAILY PO Last administered on 05/15/17 09:02; Start 05/13/17 at 09:00 Lactobacillus Rhamnosus (Culturelle) 1 cap BID PO Last administered on 09:01; Start 05/12/17 at 21:00 Pneumococcal Polyvalent Vaccine (Do NOT chart on this placeholder) 1 each PRN DAILY PRN MC LAST DATE UNKNOWN; Start 05/14/17 at 03:30; Status Cancel Pneumococcal Polyvalent Vaccine (Pneumovax 23) 0.5 ml ONCE ONCE VAX IM ; Start 05/16/17 at 09:00; Stop 05/16/17 at 09:01 Active Scripts Active Pantoprazole Sodium 40 Mg Tablet. 40 Mg PO DAILYAC Reported Omeprazole 20 Mg Capsule. 20 Mg PO PRN Sulfamethoxazole-Tmp Ds Tablet (Sulfamethoxazole/Trimethoprim) 1 Each Tablet 1 Tab PO BID [facility] Rx Capsule (Lactobacillus Casei/Folic Acid) 1 Each Capsule 1 Each PO HS Hydrocodone-Apap 5-325 (Hydrocodone Bit/Acetaminophen) 1 Each Tablet 1-2 Tab PO PRN Q6HRS PRN LAST DOSE GIVEN: DATE: TIME: Colace (Docusate Sodium) 100 Mg Capsule 1 Cap PO BID Vitals/I & O Vital Sign - Last 24 Hours 05/14/17 05/14/17 05/14/17 05/14/17 19:59 20:00 22:56 23:16 Temp 97.8 97.4 97.8 97.4 Pulse 80 76 Resp 24 19 24 B/P (MAP) 116/76 (89) 113/72 (86) Pulse Ox 94 96 O2 Delivery Room Air Room Air Nasal Cannula Room Air O2 Flow Rate 3.0 05/15/17 05/15/17 05/15/17 05/15/17 02:53 03:18 03:50 07:00 Temp 97.6 97.5 97.6 97.5 Pulse 96 76 Resp 24 30 24 21 B/P (MAP) 98/67 (77) 110/67 (81) Pulse Ox 93 92 O2 Delivery Nasal Cannula Room Air Nasal Cannula Room Air O2 Flow Rate 3.0 3.0 05/15/17 05/15/17 05/15/17 05/15/17 07:52 08:00 11:00 14:30 Temp 97.6 97.7 97.6 97.7 Pulse 78 71 Resp 20 18 B/P (MAP) 112/71 (85) 119/79 (92) Pulse Ox 98 92 93 O2 Delivery Room Air Room Air Room Air Room Air Intake and Output 05/14/17 05/14/17 05/15/17 15:00 23:00 07:00 Intake Total 540 ml 200 ml Output Total 150 ml 220 ml 300 ml Balance -150 ml 320 ml -100 ml Problem List Problems Medical Problems: (1) Jaundice Status: Acute (2) Liver failure Status: Acute Assessment Jaundice- secondary to retained CBD stones, S/p stent, LFTS slowly improving as well as pancreatitis, will add lasix for diuresis, CXR pending JAZZMINE ARAUZ MD May 15, 2017 17:46
--- NOTE | 2017-05-15 18:45 | PDOC ---
PROGRESS NOTES Chief Complaint Chief Complaint Jaundice ASSESSMENT AND PLAN: 1. Choledocholithiasis: s/p ERCP 05/10 with CBD stone removal and stent placement. of note, prior biliary obstruction with stones, s/p cholecystectomy and sphincterectomy 08/2015 2. post ERCP pancreatitis: lipase improving 3. obstructive hepatitis: very slow improvement in LFTs, eileen bili. cont supportive care 4. HTN: well controlled 5. 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 Hypoalbuminemia: acute inflammation, liver dz, poss malnutrition as well. protein supplements 7. OA: cont home regimen 8. Prophylaxis: PPI, lovenox History of Present Illness History of Present Illness very tired, can't recall if he walked with PT. acc to RN, ambulatory to bathroom by himself Vitals Vitals Vital Signs Date Time Temp Pulse Resp B/P (MAP) Pulse Ox O2 Delivery O2 Flow Rate FiO2 05/15/17 14:30 97.7 71 18 119/79 (92) 93 Room Air 97.7 05/15/17 03:50 3.0 Physical Exam Physical Exam jaundiced General: Alert, Cooperative, No acute distress Heart: Regular rate Lungs: Clear Abdomen: Normal bowel sounds, Soft, Other (mild mid abd tenderness) Extremities: No edema Skin: No rashes, Other (jaundiced) Labs LABS Laboratory Tests Test 05/15/17 05:15 05/15/17 06:00 White Blood Count 18.4 x10^3/uL (4.0-11.0) Red Blood Count 4.11 x10^6/uL (4.30-5.70) Hemoglobin 13.0 g/dL (13.0-17.5) Hematocrit 39.2 % (39.0-53.0) Mean Corpuscular Volume 95 fL (79-100) Mean Corpuscular Hemoglobin 32 pg (25-35) Mean Corpuscular Hemoglobin Concent 33 g/dL (31-37) Red Cell Distribution Width 15.6 % (11.5-14.5) Platelet Count 308 x10^3/uL (140-400) Neutrophils (%) (Auto) 87 % (31-73) Lymphocytes (%) (Auto) 5 % (24-48) Monocytes (%) (Auto) 8 % (0-9) Eosinophils (%) (Auto) 0 % (0-3) Basophils (%) (Auto) 0 % (0-3) Neutrophils # (Auto) 16.0 x10^3uL (1.8-7.7) Lymphocytes # (Auto) 1.0 x10^3/uL (1.0-4.8) Monocytes # (Auto) 1.4 x10^3/uL (0.0-1.1) Eosinophils # (Auto) 0.1 x10^3/uL (0.0-0.7) Basophils # (Auto) 0.0 x10^3/uL (0.0-0.2) Total Bilirubin 14.3 mg/dL (0.2-1.0) Direct Bilirubin 12.4 mg/dL (0.0-0.2) Aspartate Amino Transf (AST/SGOT) 123 U/L (15-37) Alanine Aminotransferase (ALT/SGPT) 69 U/L (16-63) Alkaline Phosphatase 279 U/L (46-116) Total Protein 5.1 g/dL (6.4-8.2) Albumin 1.5 g/dL (3.4-5.0) Nutrition Consultation Dietary Evaluation: Comments: REC adv to a Low Sodium diet Expected Outcomes/Goals: diet adv/ tolerance Interpretation of weight loss: >1-2% in 1 week Malnutrition Findings: Food and Nutrition Intake (Sev: <50% est energy req 5days Weight Status: Overweight POOJA GALARZA MD May 15, 2017 18:45
[2017-05-15 19:00] VITALS: BP 104/68
[2017-05-15] MEDS ORDERED: FUROSEMIDE 20 MG/2 ML VIAL. IVP ONE (19:30)
[2017-05-15] MEDS ORDERED: POLYETHYLENE GLYCOL 3350 17 GM PACKET. PO PRN (19:30)
[2017-05-15 23:52] VITALS: BP 117/69
[2017-05-16 03:00] VITALS: BP 104/69
[2017-05-16 06:03] LABS: BASO % 0 % (0-3); EOS % 0 % (0-3); HEMATOCRIT 39.1 % (39.0-53.0); HEMOGLOBIN 13.2 g/dL (13.0-17.5); LYMPH # 0.3 x10^3/uL (1.0-4.8); LYMPH % 2 % (24-48); MEAN CORPUSCULAR HEMOGLOBIN 32 pg (25-35); MEAN CORPUSCULAR HGB CONC 34 g/dL (31-37); MEAN CORPUSCULAR VOLUME 95 fL (79-100); MONO % 12 % (0-9); NEUT % 86 % (31-73); PLATELET COUNT 307 x10^3/uL (140-400); RED BLOOD COUNT 4.12 x10^6/uL (4.30-5.70); RED CELL DISTRIBUTION WIDTH 15.3 % (11.5-14.5); WHITE BLOOD COUNT 15.5 x10^3/uL (4.0-11.0)
[2017-05-16 06:20] LABS: ALBUMIN 1.4 g/dL (3.4-5.0); ALBUMIN/GLOBULIN RATIO 0.3 (1.0-1.7); CALCIUM 8.3 mg/dL (8.5-10.1); CREATININE 1.2 mg/dL (0.7-1.3); POTASSIUM 4.1 mmol/L (3.5-5.1); TOTAL BILIRUBIN 13.3 mg/dL (0.2-1.0); TOTAL PROTEIN 5.7 g/dL (6.4-8.2)
[2017-05-16 07:00] VITALS: BP 101/65
[2017-05-16] MEDS: PANTOPRAZOLE 40 MG TABLET.DR. PO SCH (07:30)
[2017-05-16] MEDS ORDERED: PNEUMOC CONJ VACC 23-VALENT 0.5 ML VIAL. VAX IM ONE (09:00)
[2017-05-16] MEDS: LACTOBACILLUS RHAMNOSUS GG 1 CAPSULE. PO SCH ×2 (09:00→21:32)
[2017-05-16] MEDS: DOCUSATE SODIUM 100 MG CAPSULE. PO SCH ×2 (09:00→21:32)
[2017-05-16] MEDS ORDERED: IOHEXOL 240 MG/ML 100 ML VIAL. IV ONE (09:30)
[2017-05-16] MEDS ORDERED: IOHEXOL 300 MG/ML 50 ML VIAL. PO ONE (09:30)
[2017-05-16] MEDS ORDERED: CONTRAST GIVEN MC PRN ×2 (09:45→10:00)
[2017-05-16] MEDS ORDERED: IOHEXOL 300 MG/ML 100ML VIAL. IV ONE (09:45)
[2017-05-16 11:00] VITALS: BP 110/73
--- NOTE | 2017-05-16 11:00 | PDOC ---
PROGRESS NOTES Chief Complaint Chief Complaint Jaundice ASSESSMENT AND PLAN: 1. Choledocholithiasis: s/p ERCP 05/10 with CBD stone removal and stent placement. of note, prior biliary obstruction with stones, s/p cholecystectomy and sphincterectomy 08/2015 2. post ERCP pancreatitis: lipase improving 3. obstructive hepatitis: very slow improvement in LFTs, eileen bili. cont supportive care 4. HTN: well controlled 5. 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 Hypoalbuminemia: acute inflammation, liver dz, poss malnutrition as well. protein supplements 7. OA: cont home regimen 8. Prophylaxis: PPI, lovenox 9. Weakness: severe 10. SOB:m worsening. CT chest with minimal effusions, but consolidations suspicious for PNA, poss aspiration. continue levaquin, O2 PRN, nebs History of Present Illness History of Present Illness lethargic, no pain, weak, mild SOB Vitals Vitals Vital Signs Date Time Temp Pulse Resp B/P (MAP) Pulse Ox O2 Delivery O2 Flow Rate FiO2 05/16/17 08:00 Nasal Cannula 3.0 05/16/17 07:00 97.6 73 20 101/65 (77) 95 97.6 Physical Exam Physical Exam jaundiced General: Alert, Cooperative, No acute distress Heart: Regular rate Lungs: Clear Abdomen: Normal bowel sounds, Soft, Other (mild mid abd tenderness) Extremities: No edema Skin: No rashes, Other (jaundiced) Labs LABS Laboratory Tests Test 05/16/17 05:20 White Blood Count 15.5 x10^3/uL (4.0-11.0) Red Blood Count 4.12 x10^6/uL (4.30-5.70) Hemoglobin 13.2 g/dL (13.0-17.5) Hematocrit 39.1 % (39.0-53.0) Mean Corpuscular Volume 95 fL (79-100) Mean Corpuscular Hemoglobin 32 pg (25-35) Mean Corpuscular Hemoglobin Concent 34 g/dL (31-37) Red Cell Distribution Width 15.3 % (11.5-14.5) Platelet Count 307 x10^3/uL (140-400) Neutrophils (%) (Auto) 86 % (31-73) Lymphocytes (%) (Auto) 2 % (24-48) Monocytes (%) (Auto) 12 % (0-9) Eosinophils (%) (Auto) 0 % (0-3) Basophils (%) (Auto) 0 % (0-3) Neutrophils # (Auto) 13.3 x10^3uL (1.8-7.7) Lymphocytes # (Auto) 0.3 x10^3/uL (1.0-4.8) Monocytes # (Auto) 1.8 x10^3/uL (0.0-1.1) Eosinophils # (Auto) 0.0 x10^3/uL (0.0-0.7) Basophils # (Auto) 0.0 x10^3/uL (0.0-0.2) Sodium Level 133 mmol/L (136-145) Potassium Level 4.1 mmol/L (3.5-5.1) Chloride Level 100 mmol/L (98-107) Carbon Dioxide Level 25 mmol/L (21-32) Anion Gap 8 (6-14) Blood Urea Nitrogen 23 mg/dL (8-26) Creatinine 1.2 mg/dL (0.7-1.3) Estimated GFR (Cockcroft-Gault) 59.0 BUN/Creatinine Ratio 19 (6-20) Glucose Level 87 mg/dL (70-99) Calcium Level 8.3 mg/dL (8.5-10.1) Total Bilirubin 13.3 mg/dL (0.2-1.0) Aspartate Amino Transf (AST/SGOT) 144 U/L (15-37) Alanine Aminotransferase (ALT/SGPT) 68 U/L (16-63) Alkaline Phosphatase 279 U/L (46-116) Total Protein 5.7 g/dL (6.4-8.2) Albumin 1.4 g/dL (3.4-5.0) Albumin/Globulin Ratio 0.3 (1.0-1.7) Nutrition Consultation Dietary Evaluation: Comments: REC adv to a Low Sodium diet Expected Outcomes/Goals: diet adv/ tolerance Interpretation of weight loss: >1-2% in 1 week Malnutrition Findings: Food and Nutrition Intake (Sev: <50% est energy req 5days Weight Status: Overweight POOJA GALARZA MD May 16, 2017 11:00
--- NOTE | 2017-05-16 12:44 | PDOC ---
Objective: Objective: Out of room for CT. Per RN, some SOA, intermittently needs O2. Tolerating PO but not much appetite. On PPN, NPO for CT but had GI soft previously. Vital Signs: Vital Signs Date Time Temp Pulse Resp B/P (MAP) Pulse Ox O2 Delivery O2 Flow Rate FiO2 05/16/17 11:00 97.3 72 20 110/73 (85) 97 Nasal Cannula 3.0 97.3 Labs: Laboratory Tests Test 05/16/17 05:20 White Blood Count 15.5 x10^3/uL Red Blood Count 4.12 x10^6/uL Hemoglobin 13.2 g/dL Hematocrit 39.1 % Mean Corpuscular Volume 95 fL Mean Corpuscular Hemoglobin 32 pg Mean Corpuscular Hemoglobin Concent 34 g/dL Red Cell Distribution Width 15.3 % Platelet Count 307 x10^3/uL Neutrophils (%) (Auto) 86 % Lymphocytes (%) (Auto) 2 % Monocytes (%) (Auto) 12 % Eosinophils (%) (Auto) 0 % Basophils (%) (Auto) 0 % Neutrophils # (Auto) 13.3 x10^3uL Lymphocytes # (Auto) 0.3 x10^3/uL Monocytes # (Auto) 1.8 x10^3/uL Eosinophils # (Auto) 0.0 x10^3/uL Basophils # (Auto) 0.0 x10^3/uL Sodium Level 133 mmol/L Potassium Level 4.1 mmol/L Chloride Level 100 mmol/L Carbon Dioxide Level 25 mmol/L Anion Gap 8 Blood Urea Nitrogen 23 mg/dL Creatinine 1.2 mg/dL Estimated GFR (Cockcroft-Gault) 59.0 BUN/Creatinine Ratio 19 Glucose Level 87 mg/dL Calcium Level 8.3 mg/dL Total Bilirubin 13.3 mg/dL Aspartate Amino Transf (AST/SGOT) 144 U/L Alanine Aminotransferase (ALT/SGPT) 68 U/L Alkaline Phosphatase 279 U/L Total Protein 5.7 g/dL Albumin 1.4 g/dL Albumin/Globulin Ratio 0.3 Imaging: CT chest/A/P PENDING PE: no exam A/P: Recurrent jaundice -s/p previous cholecystectomy and ERCPs, also liver biopsy - chronic stasis, possible PSC -this admission, MRCP w/ choledocholithiasis; ERCP w/ CBD stricture (dilated), cholangitis, stone extraction, stent placement Post ERCP pancreatitis - resolved Leukocytosis - improved -on PO Levaquin, ID signed off -- Await CT. Will review length of atbx treatment w/ Dr. Arias (?until stent removal) GUILLERMINA JAUREGUI May 16, 2017 12:44
[2017-05-16] MEDS: AMINO AC 3%/ELECTROLYTE/GLYCER 1,000 ML IV SCH ×2 (13:50→17:00)
[2017-05-16 15:00] VITALS: BP 114/70
[2017-05-16] MEDS: ENOXAPARIN 40 MG/0.4 ML SYRINGE. SQ SCH (15:46)
[2017-05-16] MEDS: FUROSEMIDE 20 MG TABLET PO SCH (15:46)
--- NOTE | 2017-05-16 16:20 | RAD ---
CT chest, abdomen and pelvis with contrast 05/16/2017 Clinical indication: Shortness of breath, jaundice, pancreatic protocol. Comparison: MRCP 05/10/2017, CT abdomen and pelvis without contrast 12/26/2016. Technique: Multiple CT images of the chest, abdomen and pelvis were obtained following the intravenous administration of 75 mL Omnipaque 300. PQRS Compliance Statement: One or more of the following individualized dose reduction techniques were utilized for this examination: 1. Automated exposure control 2. Adjustment of the mA and/or kV according to patient size 3. Use of iterative reconstruction technique Findings: Chest: This is normal without significant pericardial effusion. The thoracic aorta is normal in caliber. Three-vessel coronary artery calcifications are noted. No axillary lymphadenopathy. No significant change in mild subcarinal lymph nodes which are mildly prominent without pathologic enlargement by CT size criteria. No hilar lymphadenopathy. The central airways are patent. There are small bilateral pleural effusions. There is patchy consolidation in the lower lobes. No pneumothorax. No suspicious noncalcified pulmonary nodule in the aerated portions of the lungs. There are no destructive osseous lesions. Abdomen and pelvis: Prior cholecystectomy. There is a distal common bile duct stent with the distal aspect within the descending duodenum and the proximal aspect of the mid common bile duct level. There is left hepatic pneumobilia. Since 2014, progressive volume loss of the left hepatic lobe. Spleen and adrenal glands unremarkable. There are bilateral renal cortical cysts and additional renal hypodensities which are too small to definitely characterize. No hydronephrosis. There is extensive peripancreatic stranding and edema with no measurable peripancreatic loculated fluid collection. There is circumferential thickening at the pylorus and throughout the duodenum. Small and large bowel loops are normal in caliber without obstruction. There is moderate colonic diverticulosis without diverticulitis. Postsurgical changes of a prior appendectomy. No pneumoperitoneum. No retroperitoneal or mesenteric lymphadenopathy. Mildly distended and unopacified urinary bladder unremarkable. Prostate and seminal vesicles are unremarkable. No iliac or inguinal lymphadenopathy. Ankylosis at L4-L5 vertebral bodies. Multilevel lower lumbar spondylosis. No destructive osseous lesions. Impression: Chest: 1. Patchy bibasilar consolidation which may represent atelectasis, aspiration or multifocal infection. 2. Small bilateral pleural effusions. 3. Coronary artery calcifications. Abdomen and pelvis: 1. Placement of common bile duct stent with improvement in intra and extrahepatic bile or ductal dilatation compared to the MRCP from 05/10/2017 2. Development of extensive peripancreatic stranding and edema most suggestive of acute edematous interstitial pancreatitis. No measurable loculated peripancreatic fluid collection. 3. Circumferential thickening from the pylorus through the duodenum, likely reactive inflammation from the pancreatitis.
[2017-05-16 19:00] VITALS: BP 119/69
[2017-05-16] MEDS: HYDROcodone/APAP 5/325MG 1 TAB TABLET PO PRN (21:32)
[2017-05-16] MEDS: MORPHINE SULFATE 4 MG/ML DISP.SYRIN. IV PRN ×2 (21:36→23:57)
[2017-05-16 23:00] VITALS: BP 116/71
[2017-05-17] MEDS: AMINO AC 3%/ELECTROLYTE/GLYCER 1,000 ML IV SCH ×2 (02:44→16:35)
[2017-05-17 03:58] VITALS: BP 100/61
[2017-05-17 05:30] LABS: BASO % 0 % (0-3); EOS % 0 % (0-3); HEMATOCRIT 35.9 % (39.0-53.0); HEMOGLOBIN 12.2 g/dL (13.0-17.5); LYMPH # 0.3 x10^3/uL (1.0-4.8); LYMPH % 2 % (24-48); MEAN CORPUSCULAR HEMOGLOBIN 32 pg (25-35); MEAN CORPUSCULAR HGB CONC 34 g/dL (31-37); MEAN CORPUSCULAR VOLUME 93 fL (79-100); MONO % 13 % (0-9); NEUT % 85 % (31-73); PLATELET COUNT 267 x10^3/uL (140-400); RED BLOOD COUNT 3.85 x10^6/uL (4.30-5.70); RED CELL DISTRIBUTION WIDTH 15.3 % (11.5-14.5); WHITE BLOOD COUNT 14.3 x10^3/uL (4.0-11.0)
[2017-05-17 05:51] LABS: ALBUMIN 1.2 g/dL (3.4-5.0); ALBUMIN/GLOBULIN RATIO 0.3 (1.0-1.7); CALCIUM 8.1 mg/dL (8.5-10.1); CREATININE 1.2 mg/dL (0.7-1.3); POTASSIUM 3.9 mmol/L (3.5-5.1); TOTAL BILIRUBIN 12.2 mg/dL (0.2-1.0); TOTAL PROTEIN 5.3 g/dL (6.4-8.2)
[2017-05-17 07:00] VITALS: BP 108/61
[2017-05-17] MEDS: IPRATRPIUM/ALBUTEROL 0.5/2.5MG 3 ML NEBU. NEB SCH ×4 (07:17→19:58)
[2017-05-17] MEDS ORDERED: LINA5TAB4 PO (08:30)
[2017-05-17] MEDS ORDERED: MIRT15TA3 PO (08:30)
[2017-05-17] MEDS ORDERED: CHOL500016 PO ×2 (08:30)
[2017-05-17] MEDS ORDERED: SENN-79 PO (08:30)
[2017-05-17] MEDS ORDERED: CITA20TA5 PO (08:30)
[2017-05-17] MEDS ORDERED: GABA-585 PO (08:30)
[2017-05-17] MEDS ORDERED: POTA10TA12 PO (08:30)
[2017-05-17] MEDS ORDERED: MULT-503 PO (08:30)
[2017-05-17] MEDS ORDERED: OLAN5TAB9 PO (08:30)
[2017-05-17] MEDS ORDERED: DIVA500T9 PO (08:30)
[2017-05-17] MEDS ORDERED: RISP0.5T3 PO (08:30)
--- NOTE | 2017-05-17 08:44 | PDOC ---
Infectious Disease Note Subjective Subjective Feeling alright but fatigues easily Less back pain Feels like has gas abdominal pain at times Tolerating diet ROS ROS GEN: Denies fevers, chills, sweats HEENT: Denies blurred vision, sore throat CV: Denies chest pain RESP: Denies shortness of air, cough GI: Denies n/v/d NEURO: Denies confusion, dizziness MSK: Denies weakness, joint pain/swelling Vital Sign Vital Signs Vital Signs Date Time Temp Pulse Resp B/P (MAP) Pulse Ox O2 Delivery O2 Flow Rate FiO2 05/17/17 07:00 97.5 77 16 108/61 (77) 96 Nasal Cannula 2.0 97.5 Physical Exam PHYSICAL EXAM GENERAL: Lying down, NAD HEENT: + icterus, Oral cavity dry NECK: Supple LUNGS: Clear HEART: S1S2 ABD: Obese, soft, NT, BS active EXT: No edema, no cyanosis MONUMENT CARVER: Alert, 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 + jaundiced IV: ok Labs Lab Laboratory Tests Test 05/17/17 04:10 05/17/17 04:20 Sodium Level 132 mmol/L (136-145) Potassium Level 3.9 mmol/L (3.5-5.1) Chloride Level 99 mmol/L (98-107) Carbon Dioxide Level 23 mmol/L (21-32) Anion Gap 10 (6-14) Blood Urea Nitrogen 23 mg/dL (8-26) Creatinine 1.2 mg/dL (0.7-1.3) Estimated GFR (Cockcroft-Gault) 59.0 BUN/Creatinine Ratio 19 (6-20) Glucose Level 86 mg/dL (70-99) Calcium Level 8.1 mg/dL (8.5-10.1) Total Bilirubin 12.2 mg/dL (0.2-1.0) Aspartate Amino Transf (AST/SGOT) 151 U/L (15-37) Alanine Aminotransferase (ALT/SGPT) 66 U/L (16-63) Alkaline Phosphatase 327 U/L (46-116) Total Protein 5.3 g/dL (6.4-8.2) Albumin 1.2 g/dL (3.4-5.0) Albumin/Globulin Ratio 0.3 (1.0-1.7) White Blood Count 14.3 x10^3/uL (4.0-11.0) Red Blood Count 3.85 x10^6/uL (4.30-5.70) Hemoglobin 12.2 g/dL (13.0-17.5) Hematocrit 35.9 % (39.0-53.0) Mean Corpuscular Volume 93 fL (79-100) Mean Corpuscular Hemoglobin 32 pg (25-35) Mean Corpuscular Hemoglobin Concent 34 g/dL (31-37) Red Cell Distribution Width 15.3 % (11.5-14.5) Platelet Count 267 x10^3/uL (140-400) Neutrophils (%) (Auto) 85 % (31-73) Lymphocytes (%) (Auto) 2 % (24-48) Monocytes (%) (Auto) 13 % (0-9) Eosinophils (%) (Auto) 0 % (0-3) Basophils (%) (Auto) 0 % (0-3) Neutrophils # (Auto) 12.1 x10^3uL (1.8-7.7) Lymphocytes # (Auto) 0.3 x10^3/uL (1.0-4.8) Monocytes # (Auto) 1.8 x10^3/uL (0.0-1.1) Eosinophils # (Auto) 0.0 x10^3/uL (0.0-0.7) Basophils # (Auto) 0.0 x10^3/uL (0.0-0.2) Micro 05/16/17 CT Scan Impression: Chest: 1. Patchy bibasilar consolidation which may represent atelectasis, aspiration or multifocal infection. 2. Small bilateral pleural effusions. 3. Coronary artery calcifications. Abdomen and pelvis: 1. Placement of common bile duct stent with improvement in intra and extrahepatic bile or ductal dilatation compared to the MRCP from 05/10/2017 2. Development of extensive peripancreatic stranding and edema most suggestive of acute edematous interstitial pancreatitis. No measurable loculated peripancreatic fluid collection. 3. Circumferential thickening from the pylorus through the duodenum, likely reactive inflammation from the pancreatitis. Objective Assessment Choledocholithiasis and recurrent jaundice. s/p ERCP 05/10 with stone removal Leucocytosis - better - on Levofloxacin per GI 05/13 Postprocedure pancreatitis improving slowly, Lipase > 23,000 now down to 1419 LLL atelectasis or infiltrate and suspected small left pleural effusion. Weight loss. Malaise and fatigue. History of Serratia marcescens bacteremia in 12/2016, treated. Status post appendectomy and liver biopsy, 02/01/2017 History of diverticulosis on recent colonoscopy. Status post cholecystectomy, ERCP x 2 with sphincterotomy. GERD. Hypertension. DJD, chronic, stable. Plan Plan of Care Add Thyroid studies Add Procalcitonin May need ECHO Cont Levaquin for now D/w RUMA Zazueta MD May 17, 2017 08:44
--- NOTE | 2017-05-17 09:00 | PDOC ---
PROGRESS NOTES Chief Complaint Chief Complaint Jaundice ASSESSMENT AND PLAN: 1. Choledocholithiasis: s/p ERCP 05/10 with CBD stone removal and stent placement. of note, prior biliary obstruction with stones, s/p cholecystectomy and sphincterectomy 08/2015 2. post ERCP pancreatitis: lipase improving 3. obstructive hepatitis: very slow improvement in LFTs, eileen bili. cont supportive care 4. HTN: well controlled 5. 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 Hypoalbuminemia: acute inflammation, liver dz, poss malnutrition as well. worsening. start TPN; PICC placement 7. PNA: ?aspir. continue levaquin for now. d/w Dr Noe. O2 PRN, nebs 8. Weakness: severe 9. CAD, ?CHF: no CP. obtain echo 10. OA: cont home regimen 11. Prophylaxis: PPI, lovenox. History of Present Illness History of Present Illness essentially unchanged. remains very weak, poor PO intake Vitals Vitals Vital Signs Date Time Temp Pulse Resp B/P (MAP) Pulse Ox O2 Delivery O2 Flow Rate FiO2 05/17/17 07:00 97.5 77 16 108/61 (77) 96 Nasal Cannula 2.0 97.5 Physical Exam Physical Exam jaundiced General: Alert, Cooperative, No acute distress Heart: Regular rate Lungs: Clear Abdomen: Normal bowel sounds, Soft, Other (mild mid abd tenderness) Extremities: No edema Skin: No rashes, Other (jaundiced) Labs LABS Laboratory Tests Test 05/17/17 04:10 05/17/17 04:20 Sodium Level 132 mmol/L (136-145) Potassium Level 3.9 mmol/L (3.5-5.1) Chloride Level 99 mmol/L (98-107) Carbon Dioxide Level 23 mmol/L (21-32) Anion Gap 10 (6-14) Blood Urea Nitrogen 23 mg/dL (8-26) Creatinine 1.2 mg/dL (0.7-1.3) Estimated GFR (Cockcroft-Gault) 59.0 BUN/Creatinine Ratio 19 (6-20) Glucose Level 86 mg/dL (70-99) Calcium Level 8.1 mg/dL (8.5-10.1) Total Bilirubin 12.2 mg/dL (0.2-1.0) Aspartate Amino Transf (AST/SGOT) 151 U/L (15-37) Alanine Aminotransferase (ALT/SGPT) 66 U/L (16-63) Alkaline Phosphatase 327 U/L (46-116) Total Protein 5.3 g/dL (6.4-8.2) Albumin 1.2 g/dL (3.4-5.0) Albumin/Globulin Ratio 0.3 (1.0-1.7) White Blood Count 14.3 x10^3/uL (4.0-11.0) Red Blood Count 3.85 x10^6/uL (4.30-5.70) Hemoglobin 12.2 g/dL (13.0-17.5) Hematocrit 35.9 % (39.0-53.0) Mean Corpuscular Volume 93 fL (79-100) Mean Corpuscular Hemoglobin 32 pg (25-35) Mean Corpuscular Hemoglobin Concent 34 g/dL (31-37) Red Cell Distribution Width 15.3 % (11.5-14.5) Platelet Count 267 x10^3/uL (140-400) Neutrophils (%) (Auto) 85 % (31-73) Lymphocytes (%) (Auto) 2 % (24-48) Monocytes (%) (Auto) 13 % (0-9) Eosinophils (%) (Auto) 0 % (0-3) Basophils (%) (Auto) 0 % (0-3) Neutrophils # (Auto) 12.1 x10^3uL (1.8-7.7) Lymphocytes # (Auto) 0.3 x10^3/uL (1.0-4.8) Monocytes # (Auto) 1.8 x10^3/uL (0.0-1.1) Eosinophils # (Auto) 0.0 x10^3/uL (0.0-0.7) Basophils # (Auto) 0.0 x10^3/uL (0.0-0.2) Nutrition Consultation Dietary Evaluation: Comments: REC adv to a Low Sodium diet cont ppn at this time Expected Outcomes/Goals: diet adv/ tolerance Interpretation of weight loss: >1-2% in 1 week Malnutrition Findings: Food and Nutrition Intake (Sev: <50% est energy req 5days Weight Status: Overweight POOJA GALARZA MD May 17, 2017 09:00
[2017-05-17] MEDS: DOCUSATE SODIUM 100 MG CAPSULE. PO SCH ×2 (09:05→20:38)
[2017-05-17] MEDS: LACTOBACILLUS RHAMNOSUS GG 1 CAPSULE. PO SCH ×2 (09:05→20:38)
[2017-05-17] MEDS: PANTOPRAZOLE 40 MG TABLET.DR. PO SCH (09:05)
[2017-05-17] MEDS: FUROSEMIDE 20 MG TABLET PO SCH (09:05)
[2017-05-17 09:25] LABS: FREE T4 1.22 ng/dL (0.76-1.46)
--- NOTE | 2017-05-17 11:46 | RAD ---
Portable chest, 05/17/2017: History: Check PICC placement Comparison is made to a study from 05/13/2017. A right PICC has been inserted extending into the right atrium. Its tip is not clearly visualized. The depth of inspiration is poor. There is mild ongoing bibasilar atelectasis/infiltrate, better demonstrated on the recent CT study. The upper lung roman are clear. The patient's known pleural effusions are not visible radiographically. IMPRESSION: 1. Interval insertion of a right PICC extending into the right atrium. 2. Suboptimal inspiration with mild ongoing basilar atelectasis/infiltrate.
--- NOTE | 2017-05-17 13:00 | RAD ---
Chest radiograph One View 05/17/2017 Clinical indication: PICC placed Comparison: 05/17/2017 chest radiograph Findings: There is a right-sided PICC which has been retracted with distal tip at the superior caval atrial junction level. Hypoinflation of both lungs with mild bibasilar atelectasis or infiltrate. Impression: Slight retraction of right-sided PICC with distal tip at the superior caval atrial junction level.
[2017-05-17 14:05] LABS: PLT ESTIMATE ADEQUATE (ADEQUATE); TOXIC GRANULATION PRESENT
[2017-05-17 14:06] LABS: TARGET CELLS FEW
--- NOTE | 2017-05-17 14:18 | PDOC ---
Subjective: Subjective: "Trying to do better." Tolerating some PO w/o n/v or abd pain. Some SOA but better. Objective: Objective: PICC placed this morning, plans for TPN. Vital Signs: Vital Signs Date Time Temp Pulse Resp B/P (MAP) Pulse Ox O2 Delivery O2 Flow Rate FiO2 05/17/17 07:56 Nasal Cannula 2.0 05/17/17 07:00 97.5 77 16 108/61 (77) 96 97.5 Imaging: CT Impression: Chest: 1. Patchy bibasilar consolidation which may represent atelectasis, aspiration or multifocal infection. 2. Small bilateral pleural effusions. 3. Coronary artery calcifications. Abdomen and pelvis: 1. Placement of common bile duct stent with improvement in intra and extrahepatic bile or ductal dilatation compared to the MRCP from 05/10/2017 2. Development of extensive peripancreatic stranding and edema most suggestive of acute edematous interstitial pancreatitis. No measurable loculated peripancreatic fluid collection. 3. Circumferential thickening from the pylorus through the duodenum, likely reactive inflammation from the pancreatitis. CXR Impression: Slight retraction of right-sided PICC with distal tip at the superior caval atrial junction level. PE: GEN: NAD, sitting on edge of bed LUNGS: tachypneic at times, clear HEART: RRR ABD: S/ND/NT SKIN: less jaundice NEURO/PSYCH: A & O 3 A/P: Recurrent jaundice -s/p previous cholecystectomy and ERCPs, also liver biopsy - chronic stasis, possible PSC -this admission, MRCP w/ choledocholithiasis; ERCP w/ CBD stricture (dilated), cholangitis, stone extraction, stent placement -post ERCP pancreatitis - resolved; tolerating PO but not significant amount -PICC placed w/ plans for TPN Leukocytosis - improved -on PO Levaquin Bibasilar consolidation (on chest CT) -- Continue as above. GUILLERMINA JAUREGUI May 17, 2017 14:18 JAZZMINE ARAUZ MD May 17, 2017 14:30
[2017-05-17 15:00] VITALS: BP 107/65
[2017-05-17] MEDS: ENOXAPARIN 40 MG/0.4 ML SYRINGE. SQ SCH (16:33)
[2017-05-17 19:00] VITALS: BP 96/61
[2017-05-17 23:28] VITALS: BP 114/72
[2017-05-18 03:55] VITALS: BP 98/57
[2017-05-18 06:01] LABS: BASO % 0 % (0-3); EOS % 0 % (0-3); HEMATOCRIT 36.2 % (39.0-53.0); HEMOGLOBIN 12.2 g/dL (13.0-17.5); LYMPH # 0.6 x10^3/uL (1.0-4.8); LYMPH % 4 % (24-48); MEAN CORPUSCULAR HEMOGLOBIN 32 pg (25-35); MEAN CORPUSCULAR HGB CONC 34 g/dL (31-37); MEAN CORPUSCULAR VOLUME 94 fL (79-100); MONO % 9 % (0-9); NEUT % 87 % (31-73); PLATELET COUNT 235 x10^3/uL (140-400); RED BLOOD COUNT 3.86 x10^6/uL (4.30-5.70); RED CELL DISTRIBUTION WIDTH 15.2 % (11.5-14.5); WHITE BLOOD COUNT 16.2 x10^3/uL (4.0-11.0)
[2017-05-18 06:10] LABS: ALBUMIN 1.3 g/dL (3.4-5.0); ALBUMIN/GLOBULIN RATIO 0.3 (1.0-1.7); CALCIUM 7.9 mg/dL (8.5-10.1); CREATININE 1.3 mg/dL (0.7-1.3); GFR 53.8; POTASSIUM 3.9 mmol/L (3.5-5.1); TOTAL BILIRUBIN 12.6 mg/dL (0.2-1.0); TOTAL PROTEIN 5.6 g/dL (6.4-8.2)
[2017-05-18 07:00] VITALS: BP 116/66
[2017-05-18] MEDS: ALBUTEROL SULFATE 2.5 MG/3 ML NEBU. NEB PRN (09:21)
--- NOTE | 2017-05-18 10:12 | PDOC ---
Infectious Disease Note Subjective Subjective Better today Less SOA Less back pain Tolerating some po ROS ROS GEN: Denies fevers, chills, sweats HEENT: Denies blurred vision, sore throat CV: Denies chest pain RESP: Denies shortness of air, cough GI: Denies n/v/d NEURO: Denies confusion, dizziness MSK: Denies weakness, joint pain/swelling Vital Sign Vital Signs Vital Signs Date Time Temp Pulse Resp B/P (MAP) Pulse Ox O2 Delivery O2 Flow Rate FiO2 05/18/17 09:21 94 Room Air 05/18/17 07:00 97.8 75 20 116/66 (83) 2.0 97.8 Physical Exam PHYSICAL EXAM GENERAL: Sitting in chair, NAD HEENT: + icterus, Oral cavity dry NECK: Supple LUNGS: Clear HEART: S1S2 ABD: Obese, soft, NT, BS active EXT: No edema, no cyanosis [employer]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 + jaundiced IV: PICC - clean Labs Lab Laboratory Tests Test 05/18/17 05:30 White Blood Count 16.2 x10^3/uL (4.0-11.0) Red Blood Count 3.86 x10^6/uL (4.30-5.70) Hemoglobin 12.2 g/dL (13.0-17.5) Hematocrit 36.2 % (39.0-53.0) Mean Corpuscular Volume 94 fL (79-100) Mean Corpuscular Hemoglobin 32 pg (25-35) Mean Corpuscular Hemoglobin Concent 34 g/dL (31-37) Red Cell Distribution Width 15.2 % (11.5-14.5) Platelet Count 235 x10^3/uL (140-400) Neutrophils (%) (Auto) 87 % (31-73) Lymphocytes (%) (Auto) 4 % (24-48) Monocytes (%) (Auto) 9 % (0-9) Eosinophils (%) (Auto) 0 % (0-3) Basophils (%) (Auto) 0 % (0-3) Neutrophils # (Auto) 14.1 x10^3uL (1.8-7.7) Lymphocytes # (Auto) 0.6 x10^3/uL (1.0-4.8) Monocytes # (Auto) 1.5 x10^3/uL (0.0-1.1) Eosinophils # (Auto) 0.1 x10^3/uL (0.0-0.7) Basophils # (Auto) 0.0 x10^3/uL (0.0-0.2) Sodium Level 132 mmol/L (136-145) Potassium Level 3.9 mmol/L (3.5-5.1) Chloride Level 99 mmol/L (98-107) Carbon Dioxide Level 25 mmol/L (21-32) Anion Gap 8 (6-14) Blood Urea Nitrogen 24 mg/dL (8-26) Creatinine 1.3 mg/dL (0.7-1.3) Estimated GFR (Cockcroft-Gault) 53.8 BUN/Creatinine Ratio 18 (6-20) Glucose Level 95 mg/dL (70-99) Calcium Level 7.9 mg/dL (8.5-10.1) Total Bilirubin 12.6 mg/dL (0.2-1.0) Aspartate Amino Transf (AST/SGOT) 170 U/L (15-37) Alanine Aminotransferase (ALT/SGPT) 71 U/L (16-63) Alkaline Phosphatase 412 U/L (46-116) Total Protein 5.6 g/dL (6.4-8.2) Albumin 1.3 g/dL (3.4-5.0) Albumin/Globulin Ratio 0.3 (1.0-1.7) Micro 05/16/17 CT Scan Impression: Chest: 1. Patchy bibasilar consolidation which may represent atelectasis, aspiration or multifocal infection. 2. Small bilateral pleural effusions. 3. Coronary artery calcifications. Abdomen and pelvis: 1. Placement of common bile duct stent with improvement in intra and extrahepatic bile or ductal dilatation compared to the MRCP from 05/10/2017 2. Development of extensive peripancreatic stranding and edema most suggestive of acute edematous interstitial pancreatitis. No measurable loculated peripancreatic fluid collection. 3. Circumferential thickening from the pylorus through the duodenum, likely reactive inflammation from the pancreatitis. Objective Assessment Weakness some better. Nml Thyroid Choledocholithiasis and recurrent jaundice. s/p ERCP 05/10 with stone removal Leucocytosis - ? reactive and concentration- on Levofloxacin per GI 05/13 Postprocedure pancreatitis improving slowly, Lipase > 23,000 now down to 1419 LLL atelectasis or infiltrate and suspected small left pleural effusion. Mild elevation of procalcitonin but can be elevated with intra-abdominal processes and Renal insuff Weight loss. Malaise and fatigue. History of Serratia marcescens bacteremia in 12/2016, treated. Status post appendectomy and liver biopsy, 02/01/2017 History of diverticulosis on recent colonoscopy. Status post cholecystectomy, ERCP x 2 with sphincterotomy. GERD. Hypertension. DJD, chronic, stable. Plan Plan of Care Cont Levaquin for now wean soon F/u labs RUMA CORNELL MD May 18, 2017 10:12
[2017-05-18 11:00] VITALS: BP 101/61
[2017-05-18] MEDS: AMINO AC 3%/ELECTROLYTE/GLYCER 1,000 ML IV SCH (11:29)
[2017-05-18] MEDS: LACTOBACILLUS RHAMNOSUS GG 1 CAPSULE. PO SCH ×2 (11:30→21:00)
[2017-05-18] MEDS: PANTOPRAZOLE 40 MG TABLET.DR. PO SCH (11:30)
[2017-05-18] MEDS: FUROSEMIDE 20 MG TABLET PO SCH (11:30)
[2017-05-18] MEDS: DOCUSATE SODIUM 100 MG CAPSULE. PO SCH ×2 (11:30→21:00)
[2017-05-18] MEDS: IPRATRPIUM/ALBUTEROL 0.5/2.5MG 3 ML NEBU. NEB SCH ×4 (12:00→19:38)
--- NOTE | 2017-05-18 12:18 | PDOC ---
Objective: Objective: Working w/ PT, getting up to go to restroom. Per RN - ate almost all of breakfast this morning, doing better. Vital Signs: Vital Signs Date Time Temp Pulse Resp B/P (MAP) Pulse Ox O2 Delivery O2 Flow Rate FiO2 05/18/17 11:00 98.0 81 20 101/61 (74) 93 Nasal Cannula 2.0 98.0 Labs: Laboratory Tests Test 05/18/17 05:30 White Blood Count 16.2 x10^3/uL Red Blood Count 3.86 x10^6/uL Hemoglobin 12.2 g/dL Hematocrit 36.2 % Mean Corpuscular Volume 94 fL Mean Corpuscular Hemoglobin 32 pg Mean Corpuscular Hemoglobin Concent 34 g/dL Red Cell Distribution Width 15.2 % Platelet Count 235 x10^3/uL Neutrophils (%) (Auto) 87 % Lymphocytes (%) (Auto) 4 % Monocytes (%) (Auto) 9 % Eosinophils (%) (Auto) 0 % Basophils (%) (Auto) 0 % Neutrophils # (Auto) 14.1 x10^3uL Lymphocytes # (Auto) 0.6 x10^3/uL Monocytes # (Auto) 1.5 x10^3/uL Eosinophils # (Auto) 0.1 x10^3/uL Basophils # (Auto) 0.0 x10^3/uL Sodium Level 132 mmol/L Potassium Level 3.9 mmol/L Chloride Level 99 mmol/L Carbon Dioxide Level 25 mmol/L Anion Gap 8 Blood Urea Nitrogen 24 mg/dL Creatinine 1.3 mg/dL Estimated GFR (Cockcroft-Gault) 53.8 BUN/Creatinine Ratio 18 Glucose Level 95 mg/dL Calcium Level 7.9 mg/dL Total Bilirubin 12.6 mg/dL Aspartate Amino Transf (AST/SGOT) 170 U/L Alanine Aminotransferase (ALT/SGPT) 71 U/L Alkaline Phosphatase 412 U/L Total Protein 5.6 g/dL Albumin 1.3 g/dL Albumin/Globulin Ratio 0.3 PE: GEN: NAD, sitting on edge of bed w/ PT LUNGS: nasal cannula NEURO/PSYCH: A & O 3 A/P: Choledocholithiasis s/p ERCP w/ dilation of CBD stricture, stone extraction, and stent placement -prior to admission: s/p previous cholecystectomy and ERCPs, also liver biopsy - chronic stasis, possible PSC -leukocytosis worse today; on Levaquin, cholangitis on ERCP -resolving post-ERCP pancreatitis, appetite improving, interval CT w/ stable pancreatitis -PICC placed, plans to TPN to start today -bili stable (12.2 to 12.6 - improved since admission after stent) -- GI symptoms improving. Will review w/ Dr. Arias. GUILLERMINA JAUREGUI May 18, 2017 12:18
[2017-05-18] MEDS: TPN PER PHARMACY MC PRN (13:17)
[2017-05-18] MEDS: ENOXAPARIN 40 MG/0.4 ML SYRINGE. SQ SCH (14:41)
--- NOTE | 2017-05-18 17:48 | PDOC ---
PROGRESS NOTES Chief Complaint Chief Complaint Jaundice ASSESSMENT AND PLAN: 1. Choledocholithiasis: s/p ERCP 05/10 with CBD stone removal and stent placement. of note, prior biliary obstruction with stones, s/p cholecystectomy and sphincterectomy 08/2015 2. post ERCP pancreatitis: lipase improving 3. obstructive hepatitis: very slow improvement in LFTs, eileen bili. cont supportive care 4. HTN: well controlled 5. 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 Hypoalbuminemia: acute inflammation, liver dz, poss malnutrition as well. worsening. start TPN; PICC placement 7. PNA: ?aspir. continue levaquin for now. d/w Dr Noe. O2 PRN, nebs 8. Urinary frequency: no other sx. obtain UA to r/o infection. suspect 2/2 BPH. start flomax if UA neg Weakness: severe 9. CAD, ?CHF: no CP. obtain echo 10. OA: cont home regimen 11. Prophylaxis: PPI, lovenox. History of Present Illness History of Present Illness more alert. no c/o except remains weak Vitals Vitals Vital Signs Date Time Temp Pulse Resp B/P (MAP) Pulse Ox O2 Delivery O2 Flow Rate FiO2 05/18/17 16:39 Nasal Cannula 3.0 05/18/17 12:19 96 05/18/17 11:00 98.0 81 20 101/61 (74) 98.0 Physical Exam General: Alert, Cooperative, No acute distress Heart: Regular rate Lungs: Clear Abdomen: Normal bowel sounds, Soft, Other (mild mid abd tenderness) Extremities: No edema Skin: No rashes, Other (jaundiced) Labs LABS Laboratory Tests Test 05/18/17 05:30 White Blood Count 16.2 x10^3/uL (4.0-11.0) Red Blood Count 3.86 x10^6/uL (4.30-5.70) Hemoglobin 12.2 g/dL (13.0-17.5) Hematocrit 36.2 % (39.0-53.0) Mean Corpuscular Volume 94 fL (79-100) Mean Corpuscular Hemoglobin 32 pg (25-35) Mean Corpuscular Hemoglobin Concent 34 g/dL (31-37) Red Cell Distribution Width 15.2 % (11.5-14.5) Platelet Count 235 x10^3/uL (140-400) Neutrophils (%) (Auto) 87 % (31-73) Lymphocytes (%) (Auto) 4 % (24-48) Monocytes (%) (Auto) 9 % (0-9) Eosinophils (%) (Auto) 0 % (0-3) Basophils (%) (Auto) 0 % (0-3) Neutrophils # (Auto) 14.1 x10^3uL (1.8-7.7) Lymphocytes # (Auto) 0.6 x10^3/uL (1.0-4.8) Monocytes # (Auto) 1.5 x10^3/uL (0.0-1.1) Eosinophils # (Auto) 0.1 x10^3/uL (0.0-0.7) Basophils # (Auto) 0.0 x10^3/uL (0.0-0.2) Sodium Level 132 mmol/L (136-145) Potassium Level 3.9 mmol/L (3.5-5.1) Chloride Level 99 mmol/L (98-107) Carbon Dioxide Level 25 mmol/L (21-32) Anion Gap 8 (6-14) Blood Urea Nitrogen 24 mg/dL (8-26) Creatinine 1.3 mg/dL (0.7-1.3) Estimated GFR (Cockcroft-Gault) 53.8 BUN/Creatinine Ratio 18 (6-20) Glucose Level 95 mg/dL (70-99) Calcium Level 7.9 mg/dL (8.5-10.1) Total Bilirubin 12.6 mg/dL (0.2-1.0) Aspartate Amino Transf (AST/SGOT) 170 U/L (15-37) Alanine Aminotransferase (ALT/SGPT) 71 U/L (16-63) Alkaline Phosphatase 412 U/L (46-116) Total Protein 5.6 g/dL (6.4-8.2) Albumin 1.3 g/dL (3.4-5.0) Albumin/Globulin Ratio 0.3 (1.0-1.7) Nutrition Consultation Dietary Evaluation: Comments: REC Low Sodium diet cont ppn at this time RD consult for TPN rec: 195 g dextrose, 60 g AA, 20 g lipid Expected Outcomes/Goals: diet adv/ tolerance - met, pt on gi soft diet ~ 50% breakfast new goal: to meet > 75% est nutrition needs via po intake & nutrition support Interpretation of weight loss: >1-2% in 1 week Malnutrition Findings: Food and Nutrition Intake (Sev: <50% est energy req 5days Weight Status: Overweight POOJA GALARZA MD May 18, 2017 17:48
[2017-05-18 19:00] VITALS: BP 105/61
[2017-05-18] MEDS ORDERED: TOTAL PARENTERAL NUTRITION 1,424.9987 ML, AMINO ACIDS 10 % 60 GM, DEXTROSE 70 % IN WATE... IV SCH ×20 (22:00)
[2017-05-18 23:00] VITALS: BP 111/75
[2017-05-19 03:00] VITALS: BP 117/71
[2017-05-19 06:42] LABS: MAGNESIUM 2.4 mg/dL (1.8-2.4); PHOSPHORUS 3.1 mg/dL (2.6-4.7)
[2017-05-19 06:45] LABS: AMYLASE 55 U/L (25-115)
[2017-05-19 06:51] LABS: ALBUMIN 1.3 g/dL (3.4-5.0); ALBUMIN/GLOBULIN RATIO 0.3 (1.0-1.7); CALCIUM 7.9 mg/dL (8.5-10.1); CREATININE 1.4 mg/dL (0.7-1.3); GFR 49.4; POTASSIUM 3.7 mmol/L (3.5-5.1); TOTAL BILIRUBIN 12.2 mg/dL (0.2-1.0); TOTAL PROTEIN 5.4 g/dL (6.4-8.2)
[2017-05-19 06:56] LABS: BASO % 0 % (0-3); EOS % 0 % (0-3); HEMATOCRIT 34.7 % (39.0-53.0); HEMOGLOBIN 11.8 g/dL (13.0-17.5); LYMPH # 0.6 x10^3/uL (1.0-4.8); LYMPH % 4 % (24-48); MEAN CORPUSCULAR HEMOGLOBIN 32 pg (25-35); MEAN CORPUSCULAR HGB CONC 34 g/dL (31-37); MEAN CORPUSCULAR VOLUME 95 fL (79-100); MONO % 9 % (0-9); NEUT % 87 % (31-73); PLATELET COUNT 193 x10^3/uL (140-400); RED BLOOD COUNT 3.67 x10^6/uL (4.30-5.70); RED CELL DISTRIBUTION WIDTH 15.2 % (11.5-14.5); WHITE BLOOD COUNT 15.7 x10^3/uL (4.0-11.0)
[2017-05-19 07:00] VITALS: BP 103/63
[2017-05-19] MEDS: IPRATRPIUM/ALBUTEROL 0.5/2.5MG 3 ML NEBU. NEB SCH ×4 (08:02→20:16)
[2017-05-19] MEDS: FUROSEMIDE 20 MG TABLET PO SCH (08:55)
[2017-05-19] MEDS: PANTOPRAZOLE 40 MG TABLET.DR. PO SCH (08:55)
[2017-05-19] MEDS: LACTOBACILLUS RHAMNOSUS GG 1 CAPSULE. PO SCH ×2 (08:56→21:00)
[2017-05-19] MEDS: SIMETHICONE 80 MG TAB.CHEW PO PRN ×4 (08:56→21:00)
[2017-05-19] MEDS: DOCUSATE SODIUM 100 MG CAPSULE. PO SCH ×2 (08:56→21:00)
--- NOTE | 2017-05-19 10:04 | PDOC ---
PROGRESS NOTES Chief Complaint Chief Complaint Jaundice ASSESSMENT AND PLAN: 1. Choledocholithiasis: s/p ERCP 05/10 with CBD stone removal and stent placement. of note, prior biliary obstruction with stones, s/p cholecystectomy and sphincterectomy 08/2015 2. post ERCP pancreatitis: lipase improving 3. obstructive hepatitis: very slow improvement in LFTs, eileen bili. cont supportive care 4. HTN: well controlled 5. 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 Hypoalbuminemia: acute inflammation, liver dz, poss malnutrition as well. on TPN 7. PNA: ?aspir. continue levaquin, O2 PRN, nebs 8. Urinary frequency: no other sx. UA neg for infection. suspect 2/2 BPH.- start flomax 9. CAD: no sx. no CHF by echo today 10. OA: cont home regimen 11. Prophylaxis: PPI, lovenox. 12. Weakness: severe due to prolonged severe illness. OT/PT History of Present Illness History of Present Illness grumpy about slow "service". gen pain at times. no N/V Vitals Vitals Vital Signs Date Time Temp Pulse Resp B/P (MAP) Pulse Ox O2 Delivery O2 Flow Rate FiO2 05/19/17 08:03 Nasal Cannula 3.0 05/19/17 07:00 97.9 86 18 103/63 (76) 95 97.9 Physical Exam General: Alert, Cooperative, No acute distress Heart: Regular rate Lungs: Clear Abdomen: Normal bowel sounds, Soft, Other (mild mid abd tenderness) Extremities: No edema Skin: No rashes, Other (jaundiced) Labs LABS Laboratory Tests Test 05/19/17 06:00 White Blood Count 15.7 x10^3/uL (4.0-11.0) Red Blood Count 3.67 x10^6/uL (4.30-5.70) Hemoglobin 11.8 g/dL (13.0-17.5) Hematocrit 34.7 % (39.0-53.0) Mean Corpuscular Volume 95 fL (79-100) Mean Corpuscular Hemoglobin 32 pg (25-35) Mean Corpuscular Hemoglobin Concent 34 g/dL (31-37) Red Cell Distribution Width 15.2 % (11.5-14.5) Platelet Count 193 x10^3/uL (140-400) Neutrophils (%) (Auto) 87 % (31-73) Lymphocytes (%) (Auto) 4 % (24-48) Monocytes (%) (Auto) 9 % (0-9) Eosinophils (%) (Auto) 0 % (0-3) Basophils (%) (Auto) 0 % (0-3) Neutrophils # (Auto) 13.7 x10^3uL (1.8-7.7) Lymphocytes # (Auto) 0.6 x10^3/uL (1.0-4.8) Monocytes # (Auto) 1.4 x10^3/uL (0.0-1.1) Eosinophils # (Auto) 0.0 x10^3/uL (0.0-0.7) Basophils # (Auto) 0.0 x10^3/uL (0.0-0.2) Sodium Level 134 mmol/L (136-145) Potassium Level 3.7 mmol/L (3.5-5.1) Chloride Level 101 mmol/L (98-107) Carbon Dioxide Level 25 mmol/L (21-32) Anion Gap 8 (6-14) Blood Urea Nitrogen 20 mg/dL (8-26) Creatinine 1.4 mg/dL (0.7-1.3) Estimated GFR (Cockcroft-Gault) 49.4 BUN/Creatinine Ratio 14 (6-20) Glucose Level 118 mg/dL (70-99) Calcium Level 7.9 mg/dL (8.5-10.1) Phosphorus Level 3.1 mg/dL (2.6-4.7) Magnesium Level 2.4 mg/dL (1.8-2.4) Total Bilirubin 12.2 mg/dL (0.2-1.0) Aspartate Amino Transf (AST/SGOT) 165 U/L (15-37) Alanine Aminotransferase (ALT/SGPT) 68 U/L (16-63) Alkaline Phosphatase 447 U/L (46-116) Total Protein 5.4 g/dL (6.4-8.2) Albumin 1.3 g/dL (3.4-5.0) Albumin/Globulin Ratio 0.3 (1.0-1.7) Amylase Level 55 U/L (25-115) Lipase 320 U/L (73-393) Nutrition Consultation Dietary Evaluation: Comments: REC Low Sodium diet cont ppn at this time RD consult for TPN rec: 195 g dextrose, 60 g AA, 20 g lipid Expected Outcomes/Goals: diet adv/ tolerance - met, pt on gi soft diet ~ 50% breakfast new goal: to meet > 75% est nutrition needs via po intake & nutrition support Interpretation of weight loss: >1-2% in 1 week Malnutrition Findings: Food and Nutrition Intake (Sev: <50% est energy req 5days Weight Status: Overweight POOJA GALARZA MD May 19, 2017 10:04
[2017-05-19 10:09] LABS: BILIRUBIN,URINE LARGE (NEG); GLUCOSE,URINE NEGATIVE (NEG); NITRITE,URINE NEGATIVE (NEG); PROTEIN,URINE NEGATIVE (NEG-TRACE)
--- NOTE | 2017-05-19 10:57 | PDOC ---
Subjective: Subjective: Appetite varies, SOA varies. Says stooled yesterday. Objective: Objective: on TPN. Vital Signs: Vital Signs Date Time Temp Pulse Resp B/P (MAP) Pulse Ox O2 Delivery O2 Flow Rate FiO2 05/19/17 08:03 Nasal Cannula 3.0 05/19/17 07:00 97.9 86 18 103/63 (76) 95 97.9 Labs: Laboratory Tests Test 05/19/17 06:00 White Blood Count 15.7 x10^3/uL Red Blood Count 3.67 x10^6/uL Hemoglobin 11.8 g/dL Hematocrit 34.7 % Mean Corpuscular Volume 95 fL Mean Corpuscular Hemoglobin 32 pg Mean Corpuscular Hemoglobin Concent 34 g/dL Red Cell Distribution Width 15.2 % Platelet Count 193 x10^3/uL Neutrophils (%) (Auto) 87 % Lymphocytes (%) (Auto) 4 % Monocytes (%) (Auto) 9 % Eosinophils (%) (Auto) 0 % Basophils (%) (Auto) 0 % Neutrophils # (Auto) 13.7 x10^3uL Lymphocytes # (Auto) 0.6 x10^3/uL Monocytes # (Auto) 1.4 x10^3/uL Eosinophils # (Auto) 0.0 x10^3/uL Basophils # (Auto) 0.0 x10^3/uL Sodium Level 134 mmol/L Potassium Level 3.7 mmol/L Chloride Level 101 mmol/L Carbon Dioxide Level 25 mmol/L Anion Gap 8 Blood Urea Nitrogen 20 mg/dL Creatinine 1.4 mg/dL Estimated GFR (Cockcroft-Gault) 49.4 BUN/Creatinine Ratio 14 Glucose Level 118 mg/dL Calcium Level 7.9 mg/dL Phosphorus Level 3.1 mg/dL Magnesium Level 2.4 mg/dL Total Bilirubin 12.2 mg/dL Aspartate Amino Transf (AST/SGOT) 165 U/L Alanine Aminotransferase (ALT/SGPT) 68 U/L Alkaline Phosphatase 447 U/L Total Protein 5.4 g/dL Albumin 1.3 g/dL Albumin/Globulin Ratio 0.3 Amylase Level 55 U/L Lipase 320 U/L PE: GEN: NAD LUNGS: nasal cannula HEART: RRR ABD: S/ND/NT NEURO/PSYCH: A & O 3 A/P: Choledocholithiasis s/p ERCP w/ dilation of CBD stricture, stone extraction, and stent placement -prior to admission: s/p previous cholecystectomy and ERCPs, also liver biopsy - chronic stasis, possible PSC, plans for Ursodiol later -leukocytosis stable on Levaquin, cholangitis on ERCP -resolving post-ERCP pancreatitis, appetite waxes and wanes, interval CT w/ stable pancreatitis, on TPN -bili stable/improved, repeat lipase and amylase WNL -- Labs gradually improving. Other per Dr. Arias. GUILLERMINA JAUREGUI May 19, 2017 10:57
[2017-05-19 11:00] VITALS: BP 95/58
--- NOTE | 2017-05-19 11:09 | CARD ---
APPROVED REPORT EXAM: Two-dimensional and M-mode echocardiogram with Doppler and color Doppler. Other Information Quality : Average Rhythm : NSR INDICATION Congestive Heart Failure 2D DIMENSIONS Left Atrium(2D)3.4 (1.6-4.0cm)IVSd1.4 (0.7-1.1cm) Aortic Root(2D)3.2 (2.0-3.7cm)LVDd4.2 (3.9-5.9cm) LVOT Diameter2.3 (1.8-2.4cm)PWd1.4 (0.7-1.1cm) LVDs2.9 (2.5-4.0cm)FS (%) 30.8 % SV46.3 mlLVEF(%)58.8 (>50%) Aortic Valve AoV Peak Paresh.130.8cm/sAoV VTI30.3cm AO Peak GR.6.8mmHgLVOT Peak Paresh.126.1cm/s LVOT VTI 21.40cmAO Mean GR.4mmHg JHONNY (VMAX)3.23bh5ODH (VTI)2.83cm2 Mitral Valve MV E Zxltsola38.7cm/sMV DECEL [id number] MV A Lbenejjd77.1cm/sMV [id number] E/A Ratio0.7MV A [id number] MVA (PHT)2.13cm2 TDI E/Lateral E'8.9E/Medial E'8.6 Pulmonary Valve PV Peak Wccwjwzb459.2cm/sPV Peak Grad.5mmHg Tricuspid Valve TR P. [id number]/sRAP [id number] TR Peak Gr.17cgZnSYRL27pjBe LEFT VENTRICLE The left ventricle is normal size. There is mild concentric left ventricular hypertrophy. Left ventri sultana systolic function is normal. The Ejection Fraction is 55-60%. There is grossly normal LV segmenta l wall motion. Technically difficult images. Tissue Doppler imaging reveals mild left ventricular obed stolic dysfunction. There is no ventricular septal defect visualized. RIGHT VENTRICLE The right ventricle is normal size. The right ventricular systolic function is normal. ATRIA The left atrium size is normal. The right atrium size is normal. The interatrial septum is intact wit h no evidence for an atrial septal defect or patent foramen ovale as noted on 2-D or Doppler imaging. AORTIC VALVE The aortic valve is normal in structure and function. The aortic valve is trileaflet. Doppler and Col or Flow revealed no significant aortic regurgitation. There is no significant aortic valvular stenosi s. MITRAL VALVE The mitral valve is normal in structure and function. There is no mitral valve stenosis. Doppler and Color Flow revealed no mitral valve regurgitation noted. TRICUSPID VALVE The tricuspid valve is not well visualized. Doppler and Color Flow revealed trace tricuspid regurgita tion. The PA pressure was estimated at 21 mmHg. There is no tricuspid valve stenosis. PULMONIC VALVE The pulmonic valve is not well visualized. Doppler and Color Flow revealed no pulmonic valvular regur gitation. There is no pulmonic valvular stenosis. GREAT VESSELS The aortic root is normal in size. Normal pulmonary venous flow (Doppler). The IVC was not visualized . PERICARDIAL EFFUSION There is no evidence of significant pericardial effusion. Critical Notification Critical Value: No <Conclusion> Left ventricle systolic function is normal. The Ejection Fraction is 55-60%. There is grossly normal LV segmental wall motion. Technically difficult images.
[2017-05-19 11:20] LABS: BACTERIA,URINE 0 /HPF (0-FEW); RBC,URINE 0 /HPF (0-2); SQUAMOUS EPITHELIAL CELL,UR OCC /LPF; WBC,URINE 0 /HPF (0-4)
--- NOTE | 2017-05-19 11:56 | PDOC ---
Infectious Disease Note Subjective Subjective Tired today. May have over done it yesterday Still SOA with activity Less back pain Tolerating some po ROS ROS GEN: Denies fevers, chills, sweats HEENT: Denies blurred vision, sore throat CV: Denies chest pain RESP: Denies shortness of air, cough GI: Denies n/v/d NEURO: Denies confusion, dizziness MSK: Denies weakness, joint pain/swelling Vital Sign Vital Signs Vital Signs Date Time Temp Pulse Resp B/P (MAP) Pulse Ox O2 Delivery O2 Flow Rate FiO2 05/19/17 11:43 95 Nasal Cannula 3.0 05/19/17 11:00 98.0 79 16 95/58 (70) 98.0 Physical Exam PHYSICAL EXAM GENERAL: Alert in bed, NAD HEENT: + icterus, Oral cavity dry NECK: Supple LUNGS: Clear HEART: S1S2 ABD: Obese, soft, NT, BS active EXT: No edema, no cyanosis 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 + jaundiced IV: PICC - clean Labs Lab Laboratory Tests Test 05/19/17 00:01 05/19/17 06:00 Urine Collection Type Unknown Urine Color [place] Urine Clarity Clear Urine pH 6.0 Urine Specific [place] 1.015 Urine Protein Negative mg/dL (NEG-TRACE) Urine Glucose (UA) Negative mg/dL (NEG) Urine Ketones (Stick) Negative mg/dL (NEG) Urine Blood Negative (NEG) Urine Nitrite Negative (NEG) Urine Bilirubin Large (NEG) Urine Urobilinogen Dipstick 1.0 mg/dL (0.2 mg/dL) Urine Leukocyte Esterase Trace (NEG) Urine RBC 0 /HPF (0-2) Urine WBC 0 /HPF (0-4) Urine Squamous Epithelial Cells Occ /LPF Urine Amorphous Sediment Present /HPF Urine Bacteria 0 /HPF (0-FEW) Urine Mucus Mod /LPF White Blood Count 15.7 x10^3/uL (4.0-11.0) Red Blood Count 3.67 x10^6/uL (4.30-5.70) Hemoglobin 11.8 g/dL (13.0-17.5) Hematocrit 34.7 % (39.0-53.0) Mean Corpuscular Volume 95 fL (79-100) Mean Corpuscular Hemoglobin 32 pg (25-35) Mean Corpuscular Hemoglobin Concent 34 g/dL (31-37) Red Cell Distribution Width 15.2 % (11.5-14.5) Platelet Count 193 x10^3/uL (140-400) Neutrophils (%) (Auto) 87 % (31-73) Lymphocytes (%) (Auto) 4 % (24-48) Monocytes (%) (Auto) 9 % (0-9) Eosinophils (%) (Auto) 0 % (0-3) Basophils (%) (Auto) 0 % (0-3) Neutrophils # (Auto) 13.7 x10^3uL (1.8-7.7) Lymphocytes # (Auto) 0.6 x10^3/uL (1.0-4.8) Monocytes # (Auto) 1.4 x10^3/uL (0.0-1.1) Eosinophils # (Auto) 0.0 x10^3/uL (0.0-0.7) Basophils # (Auto) 0.0 x10^3/uL (0.0-0.2) Sodium Level 134 mmol/L (136-145) Potassium Level 3.7 mmol/L (3.5-5.1) Chloride Level 101 mmol/L (98-107) Carbon Dioxide Level 25 mmol/L (21-32) Anion Gap 8 (6-14) Blood Urea Nitrogen 20 mg/dL (8-26) Creatinine 1.4 mg/dL (0.7-1.3) Estimated GFR (Cockcroft-Gault) 49.4 BUN/Creatinine Ratio 14 (6-20) Glucose Level 118 mg/dL (70-99) Calcium Level 7.9 mg/dL (8.5-10.1) Phosphorus Level 3.1 mg/dL (2.6-4.7) Magnesium Level 2.4 mg/dL (1.8-2.4) Total Bilirubin 12.2 mg/dL (0.2-1.0) Aspartate Amino Transf (AST/SGOT) 165 U/L (15-37) Alanine Aminotransferase (ALT/SGPT) 68 U/L (16-63) Alkaline Phosphatase 447 U/L (46-116) Total Protein 5.4 g/dL (6.4-8.2) Albumin 1.3 g/dL (3.4-5.0) Albumin/Globulin Ratio 0.3 (1.0-1.7) Amylase Level 55 U/L (25-115) Lipase 320 U/L (73-393) Micro 05/16/17 CT Scan Impression: Chest: 1. Patchy bibasilar consolidation which may represent atelectasis, aspiration or multifocal infection. 2. Small bilateral pleural effusions. 3. Coronary artery calcifications. Abdomen and pelvis: 1. Placement of common bile duct stent with improvement in intra and extrahepatic bile or ductal dilatation compared to the MRCP from 05/10/2017 2. Development of extensive peripancreatic stranding and edema most suggestive of acute edematous interstitial pancreatitis. No measurable loculated peripancreatic fluid collection. 3. Circumferential thickening from the pylorus through the duodenum, likely reactive inflammation from the pancreatitis. Objective Assessment Weakness some better. Nml Thyroid Choledocholithiasis and recurrent jaundice. s/p ERCP 05/10 with stone removal Leucocytosis - ? reactive and concentration- on Levofloxacin per GI 05/13 better today Postprocedure pancreatitis improving slowly, Lipase > 23,000 now down to 1419 LLL atelectasis or infiltrate and suspected small left pleural effusion. Mild elevation of procalcitonin but can be elevated with intra-abdominal processes and Renal insuff Weight loss. Malaise and fatigue. History of Serratia marcescens bacteremia in 12/2016, treated. Status post appendectomy and liver biopsy, 02/01/2017 History of diverticulosis on recent colonoscopy. Status post cholecystectomy, ERCP x 2 with sphincterotomy. GERD. Hypertension. DJD, chronic, stable. Plan Plan of Care Cont Levaquin (05/13) for now wean soon F/u labs RUMA CORNELL MD May 19, 2017 11:56
[2017-05-19] MEDS: TPN PER PHARMACY MC PRN (12:57)
[2017-05-19] MEDS: ENOXAPARIN 40 MG/0.4 ML SYRINGE. SQ SCH (14:15)
[2017-05-19 15:00] VITALS: BP 101/60
[2017-05-19 19:20] VITALS: BP 100/63
[2017-05-19] MEDS: TAMSULOSIN 0.4 MG CAP.ER.24H. PO SCH (21:00)
[2017-05-19] MEDS ORDERED: TOTAL PARENTERAL NUTRITION 1,424.9987 ML, AMINO ACIDS 10 % 60 GM, DEXTROSE 70 % IN WATE... IV SCH ×10 (22:00)
[2017-05-19 23:20] VITALS: BP 99/57
[2017-05-20] MEDS: SIMETHICONE 80 MG TAB.CHEW PO PRN ×4 (01:00→20:47)
[2017-05-20 03:20] VITALS: BP 90/51
[2017-05-20 06:57] LABS: BASO % 0 % (0-3); EOS % 0 % (0-3); LYMPH # 0.6 x10^3/uL (1.0-4.8); LYMPH % 4 % (24-48); MEAN CORPUSCULAR HEMOGLOBIN 32 pg (25-35); MEAN CORPUSCULAR HGB CONC 33 g/dL (31-37); MEAN CORPUSCULAR VOLUME 95 fL (79-100); MONO % 10 % (0-9); NEUT % 85 % (31-73); PLATELET COUNT 191 x10^3/uL (140-400); RED BLOOD COUNT 3.79 x10^6/uL (4.30-5.70); RED CELL DISTRIBUTION WIDTH 15.5 % (11.5-14.5)
[2017-05-20 07:00] VITALS: BP 98/52
[2017-05-20] MEDS: IPRATRPIUM/ALBUTEROL 0.5/2.5MG 3 ML NEBU. NEB SCH ×4 (07:13→20:03)
[2017-05-20 07:14] LABS: ALBUMIN 1.3 g/dL (3.4-5.0); ALBUMIN/GLOBULIN RATIO 0.3 (1.0-1.7); CALCIUM 7.9 mg/dL (8.5-10.1); CREATININE 1.3 mg/dL (0.7-1.3); GFR 53.8; TOTAL BILIRUBIN 11.8 mg/dL (0.2-1.0); TOTAL PROTEIN 5.5 g/dL (6.4-8.2)
[2017-05-20] MEDS: PANTOPRAZOLE 40 MG TABLET.DR. PO SCH (07:27)
[2017-05-20] MEDS: DOCUSATE SODIUM 100 MG CAPSULE. PO SCH ×2 (09:00→20:47)
[2017-05-20] MEDS: FUROSEMIDE 20 MG TABLET PO SCH (09:54)
[2017-05-20] MEDS: LACTOBACILLUS RHAMNOSUS GG 1 CAPSULE. PO SCH ×2 (09:54→21:00)
--- NOTE | 2017-05-20 10:27 | PDOC ---
PROGRESS NOTES Chief Complaint Chief Complaint Jaundice ASSESSMENT AND PLAN: 1. Choledocholithiasis: s/p ERCP 05/10 with CBD stone removal and stent placement. of note, prior biliary obstruction with stones, s/p cholecystectomy and sphincterectomy 08/2015 2. post ERCP pancreatitis: lipase improving 3. obstructive hepatitis: very slow improvement in LFTs, eileen bili. cont supportive care 4. HTN: well controlled 5. 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 Hypoalbuminemia: acute inflammation, liver dz, poss malnutrition as well. on TPN 7. PNA: ?aspir. continue levaquin, O2 PRN, nebs 8. Urinary frequency: no other sx. UA neg for infection. suspect 2/2 BPH.- start flomax 9. CAD: no sx. no CHF by echo today 10. OA: cont home regimen 11. Prophylaxis: PPI, lovenox. 12. Weakness: severe due to prolonged severe illness. OT/PT 13. Dry nose: prob 2/2 NC O2. saline nasal spray Vitals Vitals Vital Signs Date Time Temp Pulse Resp B/P (MAP) Pulse Ox O2 Delivery O2 Flow Rate FiO2 05/20/17 07:14 95 Nasal Cannula 3.0 05/20/17 07:00 97.7 85 20 98/52 (67) 97.7 Physical Exam General: Alert, Cooperative, No acute distress Heart: Regular rate Lungs: Clear Abdomen: Normal bowel sounds, Soft, Other (mild mid abd tenderness) Extremities: No edema Skin: No rashes, Other (jaundiced) Labs LABS Laboratory Tests Test 05/20/17 06:50 White Blood Count 14.0 x10^3/uL (4.0-11.0) Red Blood Count 3.79 x10^6/uL (4.30-5.70) Hemoglobin 12.0 g/dL (13.0-17.5) Hematocrit 36.0 % (39.0-53.0) Mean Corpuscular Volume 95 fL (79-100) Mean Corpuscular Hemoglobin 32 pg (25-35) Mean Corpuscular Hemoglobin Concent 33 g/dL (31-37) Red Cell Distribution Width 15.5 % (11.5-14.5) Platelet Count 191 x10^3/uL (140-400) Neutrophils (%) (Auto) 85 % (31-73) Lymphocytes (%) (Auto) 4 % (24-48) Monocytes (%) (Auto) 10 % (0-9) Eosinophils (%) (Auto) 0 % (0-3) Basophils (%) (Auto) 0 % (0-3) Neutrophils # (Auto) 11.9 x10^3uL (1.8-7.7) Lymphocytes # (Auto) 0.6 x10^3/uL (1.0-4.8) Monocytes # (Auto) 1.4 x10^3/uL (0.0-1.1) Eosinophils # (Auto) 0.0 x10^3/uL (0.0-0.7) Basophils # (Auto) 0.0 x10^3/uL (0.0-0.2) Sodium Level 133 mmol/L (136-145) Potassium Level 4.0 mmol/L (3.5-5.1) Chloride Level 102 mmol/L (98-107) Carbon Dioxide Level 24 mmol/L (21-32) Anion Gap 7 (6-14) Blood Urea Nitrogen 18 mg/dL (8-26) Creatinine 1.3 mg/dL (0.7-1.3) Estimated GFR (Cockcroft-Gault) 53.8 BUN/Creatinine Ratio 14 (6-20) Glucose Level 102 mg/dL (70-99) Calcium Level 7.9 mg/dL (8.5-10.1) Total Bilirubin 11.8 mg/dL (0.2-1.0) Aspartate Amino Transf (AST/SGOT) 153 U/L (15-37) Alanine Aminotransferase (ALT/SGPT) 65 U/L (16-63) Alkaline Phosphatase 441 U/L (46-116) Total Protein 5.5 g/dL (6.4-8.2) Albumin 1.3 g/dL (3.4-5.0) Albumin/Globulin Ratio 0.3 (1.0-1.7) Nutrition Consultation Dietary Evaluation: Recommendations by RD: PPN/TPN Comments: REC Low Sodium diet no changes on TPN at this time Expected Outcomes/Goals: diet adv/ tolerance - met, pt on gi soft diet ~ 75% lunch today new goal: to meet > 75% est nutrition needs via po intake & nutrition support- met, goal ongoing Interpretation of weight loss: >1-2% in 1 week Malnutrition Findings: Food and Nutrition Intake (Sev: <50% est energy req 5days Weight Status: Overweight POOJA GALARZA MD May 20, 2017 10:27
[2017-05-20 11:00] VITALS: BP 97/57
[2017-05-20] MEDS: TPN PER PHARMACY MC PRN (11:53)
--- NOTE | 2017-05-20 12:51 | PDOC ---
Infectious Disease Note Subjective Subjective Feeling ok, "killing time." + gas. 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 Jaundiced Labs Lab Laboratory Tests Test 05/20/17 06:50 White Blood Count 14.0 x10^3/uL (4.0-11.0) Red Blood Count 3.79 x10^6/uL (4.30-5.70) Hemoglobin 12.0 g/dL (13.0-17.5) Hematocrit 36.0 % (39.0-53.0) Mean Corpuscular Volume 95 fL (79-100) Mean Corpuscular Hemoglobin 32 pg (25-35) Mean Corpuscular Hemoglobin Concent 33 g/dL (31-37) Red Cell Distribution Width 15.5 % (11.5-14.5) Platelet Count 191 x10^3/uL (140-400) Neutrophils (%) (Auto) 85 % (31-73) Lymphocytes (%) (Auto) 4 % (24-48) Monocytes (%) (Auto) 10 % (0-9) Eosinophils (%) (Auto) 0 % (0-3) Basophils (%) (Auto) 0 % (0-3) Neutrophils # (Auto) 11.9 x10^3uL (1.8-7.7) Lymphocytes # (Auto) 0.6 x10^3/uL (1.0-4.8) Monocytes # (Auto) 1.4 x10^3/uL (0.0-1.1) Eosinophils # (Auto) 0.0 x10^3/uL (0.0-0.7) Basophils # (Auto) 0.0 x10^3/uL (0.0-0.2) Sodium Level 133 mmol/L (136-145) Potassium Level 4.0 mmol/L (3.5-5.1) Chloride Level 102 mmol/L (98-107) Carbon Dioxide Level 24 mmol/L (21-32) Anion Gap 7 (6-14) Blood Urea Nitrogen 18 mg/dL (8-26) Creatinine 1.3 mg/dL (0.7-1.3) Estimated GFR (Cockcroft-Gault) 53.8 BUN/Creatinine Ratio 14 (6-20) Glucose Level 102 mg/dL (70-99) Calcium Level 7.9 mg/dL (8.5-10.1) Total Bilirubin 11.8 mg/dL (0.2-1.0) Aspartate Amino Transf (AST/SGOT) 153 U/L (15-37) Alanine Aminotransferase (ALT/SGPT) 65 U/L (16-63) Alkaline Phosphatase 441 U/L (46-116) Total Protein 5.5 g/dL (6.4-8.2) Albumin 1.3 g/dL (3.4-5.0) Albumin/Globulin Ratio 0.3 (1.0-1.7) Micro BLOOD CULTURE Preliminary NO GROWTH AFTER 4 DAYS URINE CULTURE RES 1 Final Comment No growth in 48 hours. Objective Assessment Weakness some better. Nml Thyroid Choledocholithiasis and recurrent jaundice. s/p ERCP 05/10 with stone removal Leucocytosis - ? reactive and concentration- on Levofloxacin per GI 05/13, trending down Postprocedure pancreatitis improving slowly, Lipase > 23,000 now down to 320 LLL atelectasis or infiltrate and suspected small left pleural effusion. Mild elevation of procalcitonin but can be elevated with intra-abdominal processes and Renal insuff Weight loss. Malaise and fatigue. History of Serratia marcescens bacteremia in 12/2016, treated. Status post appendectomy and liver biopsy, 02/01/2017 History of diverticulosis on recent colonoscopy. Status post cholecystectomy, ERCP x 2 with sphincterotomy. GERD. Hypertension. DJD, chronic, stable. Plan Plan of Care Cont Levaquin (05/13) for now wean soon probiotics F/u labs NADER TRIPP BECK TENDER May 20, 2017 12:51
[2017-05-20] MEDS: ENOXAPARIN 40 MG/0.4 ML SYRINGE. SQ SCH (13:13)
--- NOTE | 2017-05-20 13:56 | PDOC ---
G I PROGRESS NOTE Reason for Follow-up Choledocholithiasis/ascending cholangitis Subjective PO intake improving/dyspnea persists Physical Exam Lungs decreased BS CV S1 S2 ABD +BS, soft, mildly distended Review of Relevant I have reviewed the following items jadon (where applicable) has been applied. Labs Laboratory Tests Test 05/19/17 00:01 05/19/17 06:00 05/20/17 06:50 Urine Collection Type Unknown Urine Color [place] Urine Clarity Clear Urine pH 6.0 Urine Specific [place] 1.015 Urine Protein Negative mg/dL (NEG-TRACE) Urine Glucose (UA) Negative mg/dL (NEG) Urine Ketones (Stick) Negative mg/dL (NEG) Urine Blood Negative (NEG) Urine Nitrite Negative (NEG) Urine Bilirubin Large (NEG) Urine Urobilinogen Dipstick 1.0 mg/dL (0.2 mg/dL) Urine Leukocyte Esterase Trace (NEG) Urine RBC 0 /HPF (0-2) Urine WBC 0 /HPF (0-4) Urine Squamous Epithelial Cells Occ /LPF Urine Amorphous Sediment Present /HPF Urine Bacteria 0 /HPF (0-FEW) Urine Mucus Mod /LPF White Blood Count 15.7 x10^3/uL (4.0-11.0) 14.0 x10^3/uL (4.0-11.0) Red Blood Count 3.67 x10^6/uL (4.30-5.70) 3.79 x10^6/uL (4.30-5.70) Hemoglobin 11.8 g/dL (13.0-17.5) 12.0 g/dL (13.0-17.5) Hematocrit 34.7 % (39.0-53.0) 36.0 % (39.0-53.0) Mean Corpuscular Volume 95 fL (79-100) 95 fL (79-100) Mean Corpuscular Hemoglobin 32 pg (25-35) 32 pg (25-35) Mean Corpuscular Hemoglobin Concent 34 g/dL (31-37) 33 g/dL (31-37) Red Cell Distribution Width 15.2 % (11.5-14.5) 15.5 % (11.5-14.5) Platelet Count 193 x10^3/uL (140-400) 191 x10^3/uL (140-400) Neutrophils (%) (Auto) 87 % (31-73) 85 % (31-73) Lymphocytes (%) (Auto) 4 % (24-48) 4 % (24-48) Monocytes (%) (Auto) 9 % (0-9) 10 % (0-9) Eosinophils (%) (Auto) 0 % (0-3) 0 % (0-3) Basophils (%) (Auto) 0 % (0-3) 0 % (0-3) Neutrophils # (Auto) 13.7 x10^3uL (1.8-7.7) 11.9 x10^3uL (1.8-7.7) Lymphocytes # (Auto) 0.6 x10^3/uL (1.0-4.8) 0.6 x10^3/uL (1.0-4.8) Monocytes # (Auto) 1.4 x10^3/uL (0.0-1.1) 1.4 x10^3/uL (0.0-1.1) Eosinophils # (Auto) 0.0 x10^3/uL (0.0-0.7) 0.0 x10^3/uL (0.0-0.7) Basophils # (Auto) 0.0 x10^3/uL (0.0-0.2) 0.0 x10^3/uL (0.0-0.2) Sodium Level 134 mmol/L (136-145) 133 mmol/L (136-145) Potassium Level 3.7 mmol/L (3.5-5.1) 4.0 mmol/L (3.5-5.1) Chloride Level 101 mmol/L (98-107) 102 mmol/L (98-107) Carbon Dioxide Level 25 mmol/L (21-32) 24 mmol/L (21-32) Anion Gap 8 (6-14) 7 (6-14) Blood Urea Nitrogen 20 mg/dL (8-26) 18 mg/dL (8-26) Creatinine 1.4 mg/dL (0.7-1.3) 1.3 mg/dL (0.7-1.3) Estimated GFR (Cockcroft-Gault) 49.4 53.8 BUN/Creatinine Ratio 14 (6-20) 14 (6-20) Glucose Level 118 mg/dL (70-99) 102 mg/dL (70-99) Calcium Level 7.9 mg/dL (8.5-10.1) 7.9 mg/dL (8.5-10.1) Phosphorus Level 3.1 mg/dL (2.6-4.7) Magnesium Level 2.4 mg/dL (1.8-2.4) Total Bilirubin 12.2 mg/dL (0.2-1.0) 11.8 mg/dL (0.2-1.0) Aspartate Amino Transf (AST/SGOT) 165 U/L (15-37) 153 U/L (15-37) Alanine Aminotransferase (ALT/SGPT) 68 U/L (16-63) 65 U/L (16-63) Alkaline Phosphatase 447 U/L (46-116) 441 U/L (46-116) Total Protein 5.4 g/dL (6.4-8.2) 5.5 g/dL (6.4-8.2) Albumin 1.3 g/dL (3.4-5.0) 1.3 g/dL (3.4-5.0) Albumin/Globulin Ratio 0.3 (1.0-1.7) 0.3 (1.0-1.7) Amylase Level 55 U/L (25-115) Lipase 320 U/L (73-393) Laboratory Tests Test 05/20/17 06:50 White Blood Count 14.0 x10^3/uL (4.0-11.0) Red Blood Count 3.79 x10^6/uL (4.30-5.70) Hemoglobin 12.0 g/dL (13.0-17.5) Hematocrit 36.0 % (39.0-53.0) Mean Corpuscular Volume 95 fL (79-100) Mean Corpuscular Hemoglobin 32 pg (25-35) Mean Corpuscular Hemoglobin Concent 33 g/dL (31-37) Red Cell Distribution Width 15.5 % (11.5-14.5) Platelet Count 191 x10^3/uL (140-400) Neutrophils (%) (Auto) 85 % (31-73) Lymphocytes (%) (Auto) 4 % (24-48) Monocytes (%) (Auto) 10 % (0-9) Eosinophils (%) (Auto) 0 % (0-3) Basophils (%) (Auto) 0 % (0-3) Neutrophils # (Auto) 11.9 x10^3uL (1.8-7.7) Lymphocytes # (Auto) 0.6 x10^3/uL (1.0-4.8) Monocytes # (Auto) 1.4 x10^3/uL (0.0-1.1) Eosinophils # (Auto) 0.0 x10^3/uL (0.0-0.7) Basophils # (Auto) 0.0 x10^3/uL (0.0-0.2) Sodium Level 133 mmol/L (136-145) Potassium Level 4.0 mmol/L (3.5-5.1) Chloride Level 102 mmol/L (98-107) Carbon Dioxide Level 24 mmol/L (21-32) Anion Gap 7 (6-14) Blood Urea Nitrogen 18 mg/dL (8-26) Creatinine 1.3 mg/dL (0.7-1.3) Estimated GFR (Cockcroft-Gault) 53.8 BUN/Creatinine Ratio 14 (6-20) Glucose Level 102 mg/dL (70-99) Calcium Level 7.9 mg/dL (8.5-10.1) Total Bilirubin 11.8 mg/dL (0.2-1.0) Aspartate Amino Transf (AST/SGOT) 153 U/L (15-37) Alanine Aminotransferase (ALT/SGPT) 65 U/L (16-63) Alkaline Phosphatase 441 U/L (46-116) Total Protein 5.5 g/dL (6.4-8.2) Albumin 1.3 g/dL (3.4-5.0) Albumin/Globulin Ratio 0.3 (1.0-1.7) Microbiology 05/09/17 Blood Culture - Final, Complete NO GROWTH AFTER 5 DAYS 05/09/17 Urine Culture - Final, Complete 05/09/17 Urine Culture Result 1 (CHELE) - Final, Complete Medications Current Medications Docusate Sodium (Colace) 100 mg BID PO Last administered on 05/18/17t 11:30; Start 05/09/17 at 21:00 Acetaminophen/ Hydrocodone Bitart (Lortab 5/325) 1 tab PRN Q6HRS PRN PO PAIN; Start 05/09/17 at 14:15; Status Cancel Pantoprazole Sodium (Protonix) 40 mg DAILYAC PO ; Start 05/09/17 at 14:30; Stop 05/11/17 at 07:46; Status DC Diphenhydramine HCl (Benadryl) 25 mg PRN QHS PRN PO INSOMNIA Last administered on 05/14/17 22:07; Start 05/09/17 at 14:15 Acetaminophen/ Hydrocodone Bitart (Lortab 5/325) 1 tab PRN Q4HRS PRN PO MODERATE - SEVERE PAIN Last administered on 05/15/17 22:41; Start 05/09/17 at 14:15 Ondansetron HCl (Zofran) 4 mg PRN Q6HRS PRN IV NAUSEA/VOMITING; Start 05/09/17 at 14:15; Stop 05/10/17 at 16:18; Status DC Levofloxacin/ Dextrose 100 ml @ 100 mls/hr Q24H IV Last administered on 16:45; Start 05/09/17 at 16:00; Stop 05/10/17 at 10:51; Status DC Acetaminophen (Tylenol) 650 mg PRN Q6HRS PRN PO FEVER; Start 05/10/17 at 12:45 Ondansetron HCl (Zofran) 4 mg PRN Q6HRS PRN IV NAUSEA/VOMITING; Start 05/10/17 at 12:45 Morphine Sulfate 2 mg PRN Q2HR PRN IV PAIN Last administered on 05/16/17 23: 57; Start 05/10/17 at 12:45; Stop 05/18/17 at 17:46; Status DC Tramadol HCl (Ultram) 50 mg PRN Q6HRS PRN PO MILD PAIN Last administered on 13:22; Start 05/10/17 at 12:45 Hydralazine HCl (Apresoline Inj) 10 mg PRN Q4HRS PRN IVP ELEVATED BP, SEE COMMENTS; Start 05/10/17 at 12:45 Docusate Sodium (Colace) 100 mg PRN DAILY PRN PO CONSTIPATION; Start 05/10/17 at 12:45; Stop 05/18/17 at 17:46; Status DC Enoxaparin Sodium (Lovenox 40mg Syringe) 40 mg Q24H SQ Last administered on 13:13; Start 05/10/17 at 13:00 Iohexol (Omnipaque 300 Mg/ml) 100 ml STK-MED ONCE .ROUTE ; Start 05/10/17 at 14: 43; Stop 05/10/17 at 14:44; Status DC Ringer's Solution 1,000 ml @ 75 mls/hr 1X ONCE IV Last administered on 16:05; Start 05/10/17 at 16:15; Stop 05/11/17 at 05:34; Status DC Propofol 20 ml @ As Directed STK-MED ONCE IV ; Start 05/10/17 at 16:39; Stop at 16:40; Status DC Succinylcholine Chloride (Anectine) 200 mg STK-MED ONCE .ROUTE ; Start 05/10/17 at 16:39; Stop 05/10/17 at 16:40; Status DC Lidocaine HCl (Lidocaine Pf 2% Vial) 5 ml STK-MED ONCE .ROUTE ; Start 05/10/17 at 16:39; Stop 05/10/17 at 16:40; Status DC Phenylephrine HCl (Jeffrey-Synephrine Inj) 10 mg STK-MED ONCE .ROUTE ; Start at 16:41; Stop 05/10/17 at 16:42; Status DC Levofloxacin/ Dextrose 100 ml @ As Directed STK-MED ONCE IV ; Start 05/10/17 at 17:44; Stop 05/10/17 at 17:45; Status DC Lidocaine HCl (Lidocaine Pf 2% Vial) 5 ml STK-MED ONCE .ROUTE ; Start 05/10/17 at 18:57; Stop 05/10/17 at 18:58; Status DC Iohexol (Omnipaque 300 Mg/ml) 100 ml STK-MED ONCE INT CAT Last administered on 05/10/17 18:58; Start 05/10/17 at 18:58; Stop 05/10/17 at 19:00; Status DC Levofloxacin/ Dextrose 100 ml @ 100 mls/hr Q24H IV Last administered on 09:20; Start 05/11/17 at 08:00; Stop 05/12/17 at 19:03; Status DC Simethicone (Gas-X) 80 mg PRN AFTMEALHC PRN PO GAS / BLOATING Last administered on 05/20/17 13:22; Start 05/11/17 at 02:45 Morphine Sulfate 4 mg PRN Q2HR PRN IV SEVERE PAIN Last administered on 19:41; Start 05/11/17 at 06:15; Stop 05/16/17 at 21:36; Status DC Ketorolac Tromethamine (Toradol) 30 mg 1X ONCE IV Last administered on 07:57; Start 05/11/17 at 08:00; Stop 05/11/17 at 08:01; Status DC Sodium Chloride 1,000 ml @ 50 mls/hr Q20H IV Last administered on 05/15/17 13:42; Start 05/11/17 at 08:00; Stop 05/15/17 at 19:32; Status DC Pantoprazole Sodium (Protonix Vial) 40 mg DAILYAC IVP Last administered on 09:01; Start 05/11/17 at 08:00; Stop 05/15/17 at 19:15; Status DC Amino Acids/ Glycerin/ Electrolytes 1,000 ml @ 80 mls/hr [id number] IV Last administered on 05/18/17 11:29; Start 05/11/17 at 12:00; Stop 05/18/17 at 17: 46; Status DC Ketorolac Tromethamine (Toradol) 30 mg PRN Q6HRS PRN IV PAIN Last administered on 05/12/17 03:11; Start 05/11/17 at 12:00; Stop 05/15/17 at 10:00; Status DC Levofloxacin/ Dextrose 100 ml @ 100 mls/hr Q24H IV ; Start 05/11/17 at 18:00; Status Cancel Albuterol Sulfate (Ventolin Neb Soln) 2.5 mg PRN Q4HRS PRN NEB SHORTNESS OF BREATH Last administered on 05/18/17 09:21; Start 05/12/17 at 14:30 Levofloxacin (Levaquin) 500 mg DAILY PO Last administered on 05/20/17 09:54; Start 05/13/17 at 09:00 Lactobacillus Rhamnosus (Culturelle) 1 cap BID PO Last administered on 09:54; Start 05/12/17 at 21:00 Pneumococcal Polyvalent Vaccine (Do NOT chart on this placeholder) 1 each PRN DAILY PRN MC LAST DATE UNKNOWN; Start 05/14/17 at 03:30; Status Cancel Pneumococcal Polyvalent Vaccine (Pneumovax 23) 0.5 ml ONCE ONCE VAX IM ; Start 05/16/17 at 09:00; Stop 05/16/17 at 09:01; Status DC Furosemide (Lasix) 20 mg DAILY PO Last administered on 05/20/17 09:54; Start 05/15/17 at 17:45 Pantoprazole Sodium (Protonix) 40 mg DAILYAC PO Last administered on 07:27; Start 05/16/17 at 07:30 Polyethylene Glycol (miraLAX PACKET) 17 gm PRN BID PRN PO CONSTIPATION Last administered on 05/15/17 22:41; Start 05/15/17 at 19:30 Furosemide (Lasix) 20 mg 1X ONCE IVP Last administered on 05/15/17 22:42; Start 05/15/17 at 19:30; Stop 05/15/17 at 19:34; Status DC Iohexol (Omnipaque 300 Mg/ml) 30 ml 1X ONCE PO ; Start 05/16/17 at 09:30; Stop 05/16/17 at 09:32; Status DC Iohexol (Omnipaque 240 Mg/ml) 75 ml 1X ONCE IV ; Start 05/16/17 at 09:30; Stop 05/16/17 at 09:32; Status DC Info (Do NOT chart on this entry -- for MONITORING) 1 each PRN DAILY PRN MC SEE COMMENTS; Start 05/16/17 at 09:45; Stop 05/18/17 at 09:44; Status DC Iohexol (Omnipaque 300 Mg/ml) 75 ml 1X ONCE IV ; Start 05/16/17 at 09:45; Stop 05/16/17 at 09:48; Status DC Info (Do NOT chart on this entry -- for MONITORING) 1 each PRN DAILY PRN MC SEE COMMENTS; Start 05/16/17 at 10:00; Stop 05/18/17 at 09:59; Status DC Albuterol/ Ipratropium (Duoneb) 3 ml RTQID NEB Last administered on 05/20/17 11:02; Start 05/17/17 at 08:00 Info 1 each PRN DAILY PRN MC SEE COMMENTS Last administered on 05/20/17 11:53 ; Start 05/17/17 at 23:15 Sodium Chloride 90 meq/Potassium Chloride 50 meq/ Potassium Phosphate 13.6 mmol/ Magnesium Sulfate 10 meq/ Calcium Gluconate 10 meq/ Multivitamins 10 ml/Chromium / Copper/Manganese/ Seleni/Zn 1 ml/ Total Parenteral Nutrition/Amino Acids/ Dextrose/ Fat Emulsion Intravenous 1,512 ml @ 63 mls/hr TPN CONT IV ; Start 05/18/17 at 22:00; Stop 05/18/17 at 22:00; Status DC Sodium Chloride 90 meq/Potassium Chloride 50 meq/ Potassium Phosphate 13.6 mmol/ Magnesium Sulfate 10 meq/ Calcium Gluconate 10 meq/ Multivitamins 10 ml/Chromium / Copper/Manganese/ Seleni/Zn 1 ml/ Total Parenteral Nutrition/Amino Acids/ Dextrose/ Fat Emulsion Intravenous 1,512 ml @ 63 mls/hr TPN CONT IV Last administered on 05/18/17 22:26; Start 05/18/17 at 22:00; Stop 05/19/17 at 21 :59; Status DC Sodium Chloride 90 meq/Potassium Chloride 50 meq/ Potassium Phosphate 13.6 mmol/ Magnesium Sulfate 10 meq/ Calcium Gluconate 10 meq/ Multivitamins 10 ml/Chromium / Copper/Manganese/ Seleni/Zn 1 ml/ Total Parenteral Nutrition/Amino Acids/ Dextrose/ Fat Emulsion Intravenous 1,512 ml @ 63 mls/hr TPN CONT IV Last administered on 05/19/17 22:00; Start 05/19/17 at 22:00; Stop 05/20/17 at 21 :59 Tamsulosin HCl (Flomax) 0.4 mg QHS PO Last administered on 05/19/17 21:00; Start 05/19/17 at 21:00 Sodium Chloride 90 meq/Potassium Chloride 50 meq/ Potassium Phosphate 13.6 mmol/ Magnesium Sulfate 10 meq/ Calcium Gluconate 10 meq/ Multivitamins 10 ml/Chromium / Copper/Manganese/ Seleni/Zn 1 ml/ Total Parenteral Nutrition/Amino Acids/ Dextrose/ Fat Emulsion Intravenous 1,512 ml @ 63 mls/hr TPN CONT IV ; Start 05/20/17 at 22:00; Stop 05/21/17 at 21:59 Active Scripts Active Pantoprazole Sodium 40 Mg Tablet. 40 Mg PO DAILYAC Reported Divalproex Sodium 500 Mg Tablet. 500 Mg PO BID Citalopram Hbr (Citalopram Hydrobromide) 20 Mg Tablet 20 Mg PO DAILY Vitamin D3 (Cholecalciferol (Vitamin D3)) 5,000 Unit Tablet 5,000 Unit PO WEEKLY Vitamin D3 (Cholecalciferol (Vitamin D3)) 5,000 Unit Tablet 5,000 Unit PO DAILY Thera-M (Multivits, W-Fe,Other Min) 1 Each Tablet 1 Each PO DAILY Senna (Sennosides) 8.6 Mg Tablet 8.6 Mg PO DAILY Risperidone 0.5 Mg Tablet 0.25 Mg PO BID Tradjenta (Linagliptin) 5 Mg Tablet 5 Mg PO DAILY Olanzapine 5 Mg Tablet 2.5 Mg PO PRN Q2HRS PRN Potassium Chloride 10 Meq Tablet.er 10 Meq PO DAILY Mirtazapine 15 Mg Tablet 15 Mg PO QHS Gabapentin 100 Mg Capsule 200 Mg PO TID Omeprazole 20 Mg Capsule.dr 20 Mg PO PRN Sulfamethoxazole-Tmp Ds Tablet (Sulfamethoxazole/Trimethoprim) 1 Each Tablet 1 Tab PO BID Rest[facility] Rx Capsule (Lactobacillus Casei/Folic Acid) 1 Each Capsule 1 Each PO HS Hydrocodone-Apap 5-325 (Hydrocodone Bit/Acetaminophen) 1 Each Tablet 1-2 Tab PO PRN Q6HRS PRN LAST DOSE GIVEN: DATE: TIME: Colace (Docusate Sodium) 100 Mg Capsule 1 Cap PO BID Vitals/I & O Vital Sign - Last 24 Hours 05/19/17 05/19/17 05/19/17 05/19/17 15:00 15:48 19:20 20:00 Temp 97.8 97.7 97.8 97.7 Pulse 80 88 Resp 16 20 B/P (MAP) 101/60 (74) 100/63 (75) Pulse Ox 96 95 96 O2 Delivery Nasal Cannula Nasal Cannula Nasal Cannula Nasal Cannula O2 Flow Rate 2.0 3.0 2.0 2.0 05/19/17 05/19/17 05/20/17 05/20/17 20:16 23:20 03:20 07:00 Temp 98.6 98.2 97.7 98.6 98.2 97.7 Pulse 80 87 85 Resp 20 22 20 B/P (MAP) 99/57 (71) 90/51 (64) 98/52 (67) Pulse Ox 94 96 95 96 O2 Delivery Nasal Cannula Nasal Cannula Nasal Cannula Nasal Cannula O2 Flow Rate 3.0 2.0 3.0 3.0 05/20/17 05/20/17 05/20/17 05/20/17 07:14 11:00 11:04 13:22 Temp 98.1 98.1 Pulse 83 Resp 22 B/P (MAP) 97/57 (70) Pulse Ox 95 97 97 O2 Delivery Nasal Cannula Nasal Cannula Nasal Cannula Nasal Cannula O2 Flow Rate 3.0 3.0 3.0 3.0 Intake and Output 05/19/17 05/19/17 05/20/17 15:00 23:00 07:00 Intake Total 325 ml 450 ml Output Total 850 ml 600 ml Balance -525 ml -150 ml Problem List Problems Medical Problems: (1) Jaundice Status: Acute (2) Liver failure Status: Acute Assessment Ascending cholangitis- S/p stent with pancreatitis and stone extractions, slowly improving, wean tpn as po intake improves, LFTS and wbc trending down JAZZMINE ARAUZ MD May 20, 2017 13:56
[2017-05-20 15:00] VITALS: BP 101/65
[2017-05-20] MEDS ORDERED: SODIUM CHLORIDE 0.65% NASAL SPRAY 45ML BOTTLE. NS PRN (17:45)
[2017-05-20 19:00] VITALS: BP 100/62
[2017-05-20] MEDS: TAMSULOSIN 0.4 MG CAP.ER.24H. PO SCH (20:46)
[2017-05-20] MEDS ORDERED: TOTAL PARENTERAL NUTRITION 1,424.9987 ML, AMINO ACIDS 10 % 60 GM, DEXTROSE 70 % IN WATE... IV SCH ×10 (22:00)
[2017-05-20 23:00] VITALS: BP 105/68
[2017-05-21 03:00] VITALS: BP 100/60
[2017-05-21] MEDS: IPRATRPIUM/ALBUTEROL 0.5/2.5MG 3 ML NEBU. NEB SCH ×4 (06:09→20:59)
[2017-05-21 06:18] LABS: BASO % 0 % (0-3); EOS % 1 % (0-3); HEMATOCRIT 33.1 % (39.0-53.0); LYMPH # 0.4 x10^3/uL (1.0-4.8); LYMPH % 3 % (24-48); MEAN CORPUSCULAR HEMOGLOBIN 31 pg (25-35); MEAN CORPUSCULAR HGB CONC 33 g/dL (31-37); MEAN CORPUSCULAR VOLUME 94 fL (79-100); MONO % 9 % (0-9); NEUT % 88 % (31-73); PLATELET COUNT 198 x10^3/uL (140-400); RED BLOOD COUNT 3.51 x10^6/uL (4.30-5.70); RED CELL DISTRIBUTION WIDTH 15.4 % (11.5-14.5); WHITE BLOOD COUNT 14.2 x10^3/uL (4.0-11.0)
[2017-05-21 06:30] LABS: MAGNESIUM 2.3 mg/dL (1.8-2.4); PHOSPHORUS 3.2 mg/dL (2.6-4.7)
[2017-05-21 06:35] LABS: ALBUMIN 1.3 g/dL (3.4-5.0); ALBUMIN/GLOBULIN RATIO 0.3 (1.0-1.7); CALCIUM 8.2 mg/dL (8.5-10.1); CREATININE 1.2 mg/dL (0.7-1.3); POTASSIUM 4.2 mmol/L (3.5-5.1); TOTAL BILIRUBIN 11.7 mg/dL (0.2-1.0); TOTAL PROTEIN 5.7 g/dL (6.4-8.2)
[2017-05-21 07:03] VITALS: BP 98/58
[2017-05-21] MEDS: DOCUSATE SODIUM 100 MG CAPSULE. PO SCH ×3 (08:13→21:00)
[2017-05-21] MEDS: FUROSEMIDE 20 MG TABLET PO SCH (08:14)
[2017-05-21] MEDS: PANTOPRAZOLE 40 MG TABLET.DR. PO SCH (08:14)
[2017-05-21] MEDS: LACTOBACILLUS RHAMNOSUS GG 1 CAPSULE. PO SCH ×2 (08:14→20:16)
[2017-05-21 10:44] VITALS: BP 112/66
[2017-05-21] MEDS: TPN PER PHARMACY MC PRN (12:57)
[2017-05-21] MEDS: ENOXAPARIN 40 MG/0.4 ML SYRINGE. SQ SCH (12:57)
--- NOTE | 2017-05-21 14:07 | PDOC ---
G I PROGRESS NOTE Reason for Follow-up Jaundice/cbd stones Subjective Appetite improving Physical Exam Lungs decreased BS CV S1 S2 ABD +BS, soft, mild tenderness Review of Relevant I have reviewed the following items jadon (where applicable) has been applied. Labs Laboratory Tests Test 05/20/17 06:50 05/21/17 05:05 05/21/17 06:00 White Blood Count 14.0 x10^3/uL (4.0-11.0) 14.2 x10^3/uL (4.0-11.0) Red Blood Count 3.79 x10^6/uL (4.30-5.70) 3.51 x10^6/uL (4.30-5.70) Hemoglobin 12.0 g/dL (13.0-17.5) 11.0 g/dL (13.0-17.5) Hematocrit 36.0 % (39.0-53.0) 33.1 % (39.0-53.0) Mean Corpuscular Volume 95 fL (79-100) 94 fL (79-100) Mean Corpuscular Hemoglobin 32 pg (25-35) 31 pg (25-35) Mean Corpuscular Hemoglobin Concent 33 g/dL (31-37) 33 g/dL (31-37) Red Cell Distribution Width 15.5 % (11.5-14.5) 15.4 % (11.5-14.5) Platelet Count 191 x10^3/uL (140-400) 198 x10^3/uL (140-400) Neutrophils (%) (Auto) 85 % (31-73) 88 % (31-73) Lymphocytes (%) (Auto) 4 % (24-48) 3 % (24-48) Monocytes (%) (Auto) 10 % (0-9) 9 % (0-9) Eosinophils (%) (Auto) 0 % (0-3) 1 % (0-3) Basophils (%) (Auto) 0 % (0-3) 0 % (0-3) Neutrophils # (Auto) 11.9 x10^3uL (1.8-7.7) 12.4 x10^3uL (1.8-7.7) Lymphocytes # (Auto) 0.6 x10^3/uL (1.0-4.8) 0.4 x10^3/uL (1.0-4.8) Monocytes # (Auto) 1.4 x10^3/uL (0.0-1.1) 1.3 x10^3/uL (0.0-1.1) Eosinophils # (Auto) 0.0 x10^3/uL (0.0-0.7) 0.1 x10^3/uL (0.0-0.7) Basophils # (Auto) 0.0 x10^3/uL (0.0-0.2) 0.0 x10^3/uL (0.0-0.2) Sodium Level 133 mmol/L (136-145) 133 mmol/L (136-145) Potassium Level 4.0 mmol/L (3.5-5.1) 4.2 mmol/L (3.5-5.1) Chloride Level 102 mmol/L (98-107) 103 mmol/L (98-107) Carbon Dioxide Level 24 mmol/L (21-32) 22 mmol/L (21-32) Anion Gap 7 (6-14) 8 (6-14) Blood Urea Nitrogen 18 mg/dL (8-26) 21 mg/dL (8-26) Creatinine 1.3 mg/dL (0.7-1.3) 1.2 mg/dL (0.7-1.3) Estimated GFR (Cockcroft-Gault) 53.8 59.0 BUN/Creatinine Ratio 14 (6-20) 18 (6-20) Glucose Level 102 mg/dL (70-99) 105 mg/dL (70-99) Calcium Level 7.9 mg/dL (8.5-10.1) 8.2 mg/dL (8.5-10.1) Total Bilirubin 11.8 mg/dL (0.2-1.0) 11.7 mg/dL (0.2-1.0) Aspartate Amino Transf (AST/SGOT) 153 U/L (15-37) 136 U/L (15-37) Alanine Aminotransferase (ALT/SGPT) 65 U/L (16-63) 58 U/L (16-63) Alkaline Phosphatase 441 U/L (46-116) 388 U/L (46-116) Total Protein 5.5 g/dL (6.4-8.2) 5.7 g/dL (6.4-8.2) Albumin 1.3 g/dL (3.4-5.0) 1.3 g/dL (3.4-5.0) Albumin/Globulin Ratio 0.3 (1.0-1.7) 0.3 (1.0-1.7) Phosphorus Level 3.2 mg/dL (2.6-4.7) Magnesium Level 2.3 mg/dL (1.8-2.4) Triglycerides Level 254 mg/dL (0-150) Laboratory Tests Test 05/21/17 05:05 05/21/17 06:00 White Blood Count 14.2 x10^3/uL (4.0-11.0) Red Blood Count 3.51 x10^6/uL (4.30-5.70) Hemoglobin 11.0 g/dL (13.0-17.5) Hematocrit 33.1 % (39.0-53.0) Mean Corpuscular Volume 94 fL (79-100) Mean Corpuscular Hemoglobin 31 pg (25-35) Mean Corpuscular Hemoglobin Concent 33 g/dL (31-37) Red Cell Distribution Width 15.4 % (11.5-14.5) Platelet Count 198 x10^3/uL (140-400) Neutrophils (%) (Auto) 88 % (31-73) Lymphocytes (%) (Auto) 3 % (24-48) Monocytes (%) (Auto) 9 % (0-9) Eosinophils (%) (Auto) 1 % (0-3) Basophils (%) (Auto) 0 % (0-3) Neutrophils # (Auto) 12.4 x10^3uL (1.8-7.7) Lymphocytes # (Auto) 0.4 x10^3/uL (1.0-4.8) Monocytes # (Auto) 1.3 x10^3/uL (0.0-1.1) Eosinophils # (Auto) 0.1 x10^3/uL (0.0-0.7) Basophils # (Auto) 0.0 x10^3/uL (0.0-0.2) Sodium Level 133 mmol/L (136-145) Potassium Level 4.2 mmol/L (3.5-5.1) Chloride Level 103 mmol/L (98-107) Carbon Dioxide Level 22 mmol/L (21-32) Anion Gap 8 (6-14) Blood Urea Nitrogen 21 mg/dL (8-26) Creatinine 1.2 mg/dL (0.7-1.3) Estimated GFR (Cockcroft-Gault) 59.0 BUN/Creatinine Ratio 18 (6-20) Glucose Level 105 mg/dL (70-99) Calcium Level 8.2 mg/dL (8.5-10.1) Phosphorus Level 3.2 mg/dL (2.6-4.7) Magnesium Level 2.3 mg/dL (1.8-2.4) Total Bilirubin 11.7 mg/dL (0.2-1.0) Aspartate Amino Transf (AST/SGOT) 136 U/L (15-37) Alanine Aminotransferase (ALT/SGPT) 58 U/L (16-63) Alkaline Phosphatase 388 U/L (46-116) Total Protein 5.7 g/dL (6.4-8.2) Albumin 1.3 g/dL (3.4-5.0) Albumin/Globulin Ratio 0.3 (1.0-1.7) Triglycerides Level 254 mg/dL (0-150) Microbiology 05/09/17 Blood Culture - Final, Complete NO GROWTH AFTER 5 DAYS 05/19/17 Urine Culture - Preliminary, Resulted 05/19/17 Urine Culture Result 1 (CHELE) - Preliminary, Resulted Medications Current Medications Docusate Sodium (Colace) 100 mg BID PO Last administered on 05/21/17 08:13; Start 05/09/17 at 21:00 Acetaminophen/ Hydrocodone Bitart (Lortab 5/325) 1 tab PRN Q6HRS PRN PO PAIN; Start 05/09/17 at 14:15; Status Cancel Pantoprazole Sodium (Protonix) 40 mg DAILYAC PO ; Start 05/09/17 at 14:30; Stop 05/11/17 at 07:46; Status DC Diphenhydramine HCl (Benadryl) 25 mg PRN QHS PRN PO INSOMNIA Last administered on 05/14/17 22:07; Start 05/09/17 at 14:15 Acetaminophen/ Hydrocodone Bitart (Lortab 5/325) 1 tab PRN Q4HRS PRN PO MODERATE - SEVERE PAIN Last administered on 05/15/17 22:41; Start 05/09/17 at 14:15 Ondansetron HCl (Zofran) 4 mg PRN Q6HRS PRN IV NAUSEA/VOMITING; Start 05/09/17 at 14:15; Stop 05/10/17 at 16:18; Status DC Levofloxacin/ Dextrose 100 ml @ 100 mls/hr Q24H IV Last administered on 16:45; Start 05/09/17 at 16:00; Stop 05/10/17 at 10:51; Status DC Acetaminophen (Tylenol) 650 mg PRN Q6HRS PRN PO FEVER; Start 05/10/17 at 12:45 Ondansetron HCl (Zofran) 4 mg PRN Q6HRS PRN IV NAUSEA/VOMITING; Start 05/10/17 at 12:45 Morphine Sulfate 2 mg PRN Q2HR PRN IV PAIN Last administered on 05/16/17 23: 57; Start 05/10/17 at 12:45; Stop 05/18/17 at 17:46; Status DC Tramadol HCl (Ultram) 50 mg PRN Q6HRS PRN PO MILD PAIN Last administered on 13:22; Start 05/10/17 at 12:45 Hydralazine HCl (Apresoline Inj) 10 mg PRN Q4HRS PRN IVP ELEVATED BP, SEE COMMENTS; Start 05/10/17 at 12:45 Docusate Sodium (Colace) 100 mg PRN DAILY PRN PO CONSTIPATION; Start 05/10/17 at 12:45; Stop 05/18/17 at 17:46; Status DC Enoxaparin Sodium (Lovenox 40mg Syringe) 40 mg Q24H SQ Last administered on 12:57; Start 05/10/17 at 13:00 Iohexol (Omnipaque 300 Mg/ml) 100 ml STK-MED ONCE .ROUTE ; Start 05/10/17 at 14: 43; Stop 05/10/17 at 14:44; Status DC Ringer's Solution 1,000 ml @ 75 mls/hr 1X ONCE IV Last administered on 16:05; Start 05/10/17 at 16:15; Stop 05/11/17 at 05:34; Status DC Propofol 20 ml @ As Directed STK-MED ONCE IV ; Start 05/10/17 at 16:39; Stop at 16:40; Status DC Succinylcholine Chloride (Anectine) 200 mg STK-MED ONCE .ROUTE ; Start 05/10/17 at 16:39; Stop 05/10/17 at 16:40; Status DC Lidocaine HCl (Lidocaine Pf 2% Vial) 5 ml STK-MED ONCE .ROUTE ; Start 05/10/17 at 16:39; Stop 05/10/17 at 16:40; Status DC Phenylephrine HCl (Jeffrey-Synephrine Inj) 10 mg STK-MED ONCE .ROUTE ; Start at 16:41; Stop 05/10/17 at 16:42; Status DC Levofloxacin/ Dextrose 100 ml @ As Directed STK-MED ONCE IV ; Start 05/10/17 at 17:44; Stop 05/10/17 at 17:45; Status DC Lidocaine HCl (Lidocaine Pf 2% Vial) 5 ml STK-MED ONCE .ROUTE ; Start 05/10/17 at 18:57; Stop 05/10/17 at 18:58; Status DC Iohexol (Omnipaque 300 Mg/ml) 100 ml STK-MED ONCE INT CAT Last administered on 05/10/17 18:58; Start 05/10/17 at 18:58; Stop 05/10/17 at 19:00; Status DC Levofloxacin/ Dextrose 100 ml @ 100 mls/hr Q24H IV Last administered on 09:20; Start 05/11/17 at 08:00; Stop 05/12/17 at 19:03; Status DC Simethicone (Gas-X) 80 mg PRN AFTMEALHC PRN PO GAS / BLOATING Last administered on 05/20/17 20:47; Start 05/11/17 at 02:45 Morphine Sulfate 4 mg PRN Q2HR PRN IV SEVERE PAIN Last administered on 19:41; Start 05/11/17 at 06:15; Stop 05/16/17 at 21:36; Status DC Ketorolac Tromethamine (Toradol) 30 mg 1X ONCE IV Last administered on 07:57; Start 05/11/17 at 08:00; Stop 05/11/17 at 08:01; Status DC Sodium Chloride 1,000 ml @ 50 mls/hr Q20H IV Last administered on 05/15/17 13:42; Start 05/11/17 at 08:00; Stop 05/15/17 at 19:32; Status DC Pantoprazole Sodium (Protonix Vial) 40 mg DAILYAC IVP Last administered on 09:01; Start 05/11/17 at 08:00; Stop 05/15/17 at 19:15; Status DC Amino Acids/ Glycerin/ Electrolytes 1,000 ml @ 80 mls/hr [id number] IV Last administered on 05/18/17 11:29; Start 05/11/17 at 12:00; Stop 05/18/17 at 17: 46; Status DC Ketorolac Tromethamine (Toradol) 30 mg PRN Q6HRS PRN IV PAIN Last administered on 05/12/17 03:11; Start 05/11/17 at 12:00; Stop 05/15/17 at 10:00; Status DC Levofloxacin/ Dextrose 100 ml @ 100 mls/hr Q24H IV ; Start 05/11/17 at 18:00; Status Cancel Albuterol Sulfate (Ventolin Neb Soln) 2.5 mg PRN Q4HRS PRN NEB SHORTNESS OF BREATH Last administered on 05/18/17 09:21; Start 05/12/17 at 14:30 Levofloxacin (Levaquin) 500 mg DAILY PO Last administered on 05/21/17 08:13; Start 05/13/17 at 09:00 Lactobacillus Rhamnosus (Culturelle) 1 cap BID PO Last administered on 08:14; Start 05/12/17 at 21:00 Pneumococcal Polyvalent Vaccine (Do NOT chart on this placeholder) 1 each PRN DAILY PRN MC LAST DATE UNKNOWN; Start 05/14/17 at 03:30; Status Cancel Pneumococcal Polyvalent Vaccine (Pneumovax 23) 0.5 ml ONCE ONCE VAX IM ; Start 05/16/17 at 09:00; Stop 05/16/17 at 09:01; Status DC Furosemide (Lasix) 20 mg DAILY PO Last administered on 11/19/17at 08:14; Start 05/15/17 at 17:45 Pantoprazole Sodium (Protonix) 40 mg DAILYAC PO Last administered on 08:14; Start 05/16/17 at 07:30 Polyethylene Glycol (miraLAX PACKET) 17 gm PRN BID PRN PO CONSTIPATION Last administered on 05/15/17 22:41; Start 05/15/17 at 19:30 Furosemide (Lasix) 20 mg 1X ONCE IVP Last administered on 05/15/17 22:42; Start 05/15/17 at 19:30; Stop 05/15/17 at 19:34; Status DC Iohexol (Omnipaque 300 Mg/ml) 30 ml 1X ONCE PO ; Start 05/16/17 at 09:30; Stop 05/16/17 at 09:32; Status DC Iohexol (Omnipaque 240 Mg/ml) 75 ml 1X ONCE IV ; Start 05/16/17 at 09:30; Stop 05/16/17 at 09:32; Status DC Info (Do NOT chart on this entry -- for MONITORING) 1 each PRN DAILY PRN MC SEE COMMENTS; Start 05/16/17 at 09:45; Stop 05/18/17 at 09:44; Status DC Iohexol (Omnipaque 300 Mg/ml) 75 ml 1X ONCE IV ; Start 05/16/17 at 09:45; Stop 05/16/17 at 09:48; Status DC Info (Do NOT chart on this entry -- for MONITORING) 1 each PRN DAILY PRN MC SEE COMMENTS; Start 05/16/17 at 10:00; Stop 05/18/17 at 09:59; Status DC Albuterol/ Ipratropium (Duoneb) 3 ml RTQID NEB Last administered on 05/21/17 12:08; Start 05/17/17 at 08:00 Info 1 each PRN DAILY PRN MC SEE COMMENTS Last administered on 05/21/17 12:57 ; Start 05/17/17 at 23:15 Sodium Chloride 90 meq/Potassium Chloride 50 meq/ Potassium Phosphate 13.6 mmol/ Magnesium Sulfate 10 meq/ Calcium Gluconate 10 meq/ Multivitamins 10 ml/Chromium / Copper/Manganese/ Seleni/Zn 1 ml/ Total Parenteral Nutrition/Amino Acids/ Dextrose/ Fat Emulsion Intravenous 1,512 ml @ 63 mls/hr TPN CONT IV ; Start 05/18/17 at 22:00; Stop 05/18/17 at 22:00; Status DC Sodium Chloride 90 meq/Potassium Chloride 50 meq/ Potassium Phosphate 13.6 mmol/ Magnesium Sulfate 10 meq/ Calcium Gluconate 10 meq/ Multivitamins 10 ml/Chromium / Copper/Manganese/ Seleni/Zn 1 ml/ Total Parenteral Nutrition/Amino Acids/ Dextrose/ Fat Emulsion Intravenous 1,512 ml @ 63 mls/hr TPN CONT IV Last administered on 05/18/17 22:26; Start 05/18/17 at 22:00; Stop 05/19/17 at 21 :59; Status DC Sodium Chloride 90 meq/Potassium Chloride 50 meq/ Potassium Phosphate 13.6 mmol/ Magnesium Sulfate 10 meq/ Calcium Gluconate 10 meq/ Multivitamins 10 ml/Chromium / Copper/Manganese/ Seleni/Zn 1 ml/ Total Parenteral Nutrition/Amino Acids/ Dextrose/ Fat Emulsion Intravenous 1,512 ml @ 63 mls/hr TPN CONT IV Last administered on 05/19/17 22:00; Start 05/19/17 at 22:00; Stop 05/20/17 at 21 :59; Status DC Tamsulosin HCl (Flomax) 0.4 mg QHS PO Last administered on 05/20/17 20:46; Start 05/19/17 at 21:00 Sodium Chloride 90 meq/Potassium Chloride 50 meq/ Potassium Phosphate 13.6 mmol/ Magnesium Sulfate 10 meq/ Calcium Gluconate 10 meq/ Multivitamins 10 ml/Chromium / Copper/Manganese/ Seleni/Zn 1 ml/ Total Parenteral Nutrition/Amino Acids/ Dextrose/ Fat Emulsion Intravenous 1,512 ml @ 63 mls/hr TPN CONT IV Last administered on 05/20/17 22:49; Start 05/20/17 at 22:00; Stop 05/21/17 at 21 :59 Sodium Chloride (Saline Mist Nasal) 1 federico PRN Q1HR PRN NS NASAL CONGESTION; Start 05/20/17 at 17:45 Sodium Chloride 90 meq/Potassium Chloride 50 meq/ Potassium Phosphate 13.6 mmol/ Magnesium Sulfate 10 meq/ Calcium Gluconate 5 meq/ Multivitamins 10 ml/Chromium / Copper/Manganese/ Seleni/Zn 1 ml/ Total Parenteral Nutrition/Amino Acids/ Dextrose/ Fat Emulsion Intravenous 1,512 ml @ 63 mls/hr TPN CONT IV ; Start 05/21/17 at 22:00; Stop 05/22/17 at 21:59 Active Scripts Active Pantoprazole Sodium 40 Mg Tablet. 40 Mg PO DAILYAC Reported Divalproex Sodium 500 Mg Tablet. 500 Mg PO BID Citalopram Hbr (Citalopram Hydrobromide) 20 Mg Tablet 20 Mg PO DAILY Vitamin D3 (Cholecalciferol (Vitamin D3)) 5,000 Unit Tablet 5,000 Unit PO WEEKLY Vitamin D3 (Cholecalciferol (Vitamin D3)) 5,000 Unit Tablet 5,000 Unit PO DAILY Thera-M (Multivits, W-,Other Min) 1 Each Tablet 1 Each PO DAILY Senna (Sennosides) 8.6 Mg Tablet 8.6 Mg PO DAILY Risperidone 0.5 Mg Tablet 0.25 Mg PO BID Tradjenta (Linagliptin) 5 Mg Tablet 5 Mg PO DAILY Olanzapine 5 Mg Tablet 2.5 Mg PO PRN Q2HRS PRN Potassium Chloride 10 Meq Tablet.er 10 Meq PO DAILY Mirtazapine 15 Mg Tablet 15 Mg PO QHS Gabapentin 100 Mg Capsule 200 Mg PO TID Omeprazole 20 Mg Capsule.dr 20 Mg PO PRN Sulfamethoxazole-Tmp Ds Tablet (Sulfamethoxazole/Trimethoprim) 1 Each Tablet 1 Tab PO BID [facility] Rx Capsule (Lactobacillus Casei/Folic Acid) 1 Each Capsule 1 Each PO HS Hydrocodone-Apap 5-325 (Hydrocodone Bit/Acetaminophen) 1 Each Tablet 1-2 Tab PO PRN Q6HRS PRN LAST DOSE GIVEN: DATE: TIME: Colace (Docusate Sodium) 100 Mg Capsule 1 Cap PO BID Vitals/I & O Vital Sign - Last 24 Hours 05/20/17 05/20/17 05/20/17 05/20/17 14:59 15:00 15:57 19:00 Temp 98.0 98.1 98.0 98.1 Pulse 85 85 Resp 22 19 B/P (MAP) 101/65 (77) 100/62 (75) Pulse Ox 99 97 O2 Delivery Nasal Cannula Nasal Cannula Nasal Cannula Nasal Cannula O2 Flow Rate 2.0 3.0 3.0 3.0 05/20/17 05/20/17 05/20/17 05/21/17 20:05 20:11 23:00 03:00 Temp 98.7 97.5 98.7 97.5 Pulse 90 94 Resp 18 19 B/P (MAP) 105/68 (80) 100/60 (73) Pulse Ox 96 95 95 O2 Delivery Nasal Cannula Nasal Cannula Nasal Cannula Nasal Cannula O2 Flow Rate 3.0 3.0 3.0 3.0 05/21/17 05/21/17 05/21/17 05/21/17 06:09 07:03 08:00 10:44 Temp 98.1 97.5 98.1 97.5 Pulse 87 93 Resp 20 20 B/P (MAP) 98/58 (71) 112/66 (81) Pulse Ox 94 97 O2 Delivery Nasal Cannula Nasal Cannula Nasal Cannula Nasal Cannula O2 Flow Rate 3.0 2.0 2.0 2.0 05/21/17 12:08 Pulse Ox 97 O2 Delivery Nasal Cannula O2 Flow Rate 3.0 Intake and Output 05/20/17 05/20/17 05/21/17 15:00 23:00 07:00 Intake Total 1356 ml 175 ml Output Total 500 ml 900 ml Balance 856 ml -725 ml Problem List Problems Medical Problems: (1) Jaundice Status: Acute (2) Liver failure Status: Acute Assessment Jaundice- with choledocholithiasis, S/p stent/stone extraction, slow improvement , increase activity and diet as toelrated, wean o2 as tolerated, o/p stent removal , mcc actigal/ursodial therapy for recurrent stones s/p shruthi/ sphincterotomy JAZZMINE ARAUZ MD May 21, 2017 14:07
[2017-05-21 14:26] VITALS: BP 108/62
--- NOTE | 2017-05-21 14:46 | PDOC ---
PROGRESS NOTES Chief Complaint Chief Complaint Jaundice ASSESSMENT AND PLAN: 1. Choledocholithiasis: s/p ERCP 05/10 with CBD stone removal and stent placement. of note, prior biliary obstruction with stones, s/p cholecystectomy and sphincterectomy 08/2015 2. post ERCP pancreatitis: resolved 3. obstructive hepatitis: very slow improvement in LFTs, eileen bili. labs seem to be plateauing. d/c TPN, which may contribute 4. Hypoalbuminemia: acute inflammation, liver dz, poss malnutrition as well. monitor 5. 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 HTN: well controlled 7. CAD: no sx. no CHF by echo 8. PNA: ?aspir. on levaquin x10d, stop. wean O2, nebs 9. Dry nose: prob 2/2 NC O2. saline nasal spray 10. Urinary frequency: no other sx. UA neg for infection. suspect 2/2 BPH. started flomax 05/19 11. OA: cont home regimen 12. Prophylaxis: PPI, lovenox. 13. Weakness: severe due to prolonged severe illness. OT/PT History of Present Illness History of Present Illness feling better, ate breakfast well, some lunch Vitals Vitals Vital Signs Date Time Temp Pulse Resp B/P (MAP) Pulse Ox O2 Delivery O2 Flow Rate FiO2 05/21/17 14:26 97.7 95 22 108/62 (77) 96 Nasal Cannula 2.0 97.7 Physical Exam General: Alert, Cooperative, No acute distress Heart: Regular rate Lungs: Clear Abdomen: Normal bowel sounds, Soft, Other (mild mid abd tenderness) Extremities: No edema Skin: No rashes, Other (jaundiced) Labs LABS Laboratory Tests Test 05/21/17 05:05 05/21/17 06:00 White Blood Count 14.2 x10^3/uL (4.0-11.0) Red Blood Count 3.51 x10^6/uL (4.30-5.70) Hemoglobin 11.0 g/dL (13.0-17.5) Hematocrit 33.1 % (39.0-53.0) Mean Corpuscular Volume 94 fL (79-100) Mean Corpuscular Hemoglobin 31 pg (25-35) Mean Corpuscular Hemoglobin Concent 33 g/dL (31-37) Red Cell Distribution Width 15.4 % (11.5-14.5) Platelet Count 198 x10^3/uL (140-400) Neutrophils (%) (Auto) 88 % (31-73) Lymphocytes (%) (Auto) 3 % (24-48) Monocytes (%) (Auto) 9 % (0-9) Eosinophils (%) (Auto) 1 % (0-3) Basophils (%) (Auto) 0 % (0-3) Neutrophils # (Auto) 12.4 x10^3uL (1.8-7.7) Lymphocytes # (Auto) 0.4 x10^3/uL (1.0-4.8) Monocytes # (Auto) 1.3 x10^3/uL (0.0-1.1) Eosinophils # (Auto) 0.1 x10^3/uL (0.0-0.7) Basophils # (Auto) 0.0 x10^3/uL (0.0-0.2) Sodium Level 133 mmol/L (136-145) Potassium Level 4.2 mmol/L (3.5-5.1) Chloride Level 103 mmol/L (98-107) Carbon Dioxide Level 22 mmol/L (21-32) Anion Gap 8 (6-14) Blood Urea Nitrogen 21 mg/dL (8-26) Creatinine 1.2 mg/dL (0.7-1.3) Estimated GFR (Cockcroft-Gault) 59.0 BUN/Creatinine Ratio 18 (6-20) Glucose Level 105 mg/dL (70-99) Calcium Level 8.2 mg/dL (8.5-10.1) Phosphorus Level 3.2 mg/dL (2.6-4.7) Magnesium Level 2.3 mg/dL (1.8-2.4) Total Bilirubin 11.7 mg/dL (0.2-1.0) Aspartate Amino Transf (AST/SGOT) 136 U/L (15-37) Alanine Aminotransferase (ALT/SGPT) 58 U/L (16-63) Alkaline Phosphatase 388 U/L (46-116) Total Protein 5.7 g/dL (6.4-8.2) Albumin 1.3 g/dL (3.4-5.0) Albumin/Globulin Ratio 0.3 (1.0-1.7) Triglycerides Level 254 mg/dL (0-150) Nutrition Consultation Dietary Evaluation: Recommendations by RD: PPN/TPN Comments: REC Low Sodium diet no changes on TPN at this time Expected Outcomes/Goals: diet adv/ tolerance - met, pt on gi soft diet ~ 75% lunch today new goal: to meet > 75% est nutrition needs via po intake & nutrition support- met, goal ongoing Interpretation of weight loss: >1-2% in 1 week Malnutrition Findings: Food and Nutrition Intake (Sev: <50% est energy req 5days Weight Status: Overweight POOJA GALARZA MD May 21, 2017 14:46
[2017-05-21 19:28] VITALS: BP 104/65
[2017-05-21] MEDS: TAMSULOSIN 0.4 MG CAP.ER.24H. PO SCH (20:16)
[2017-05-21] MEDS: IV DEXTROSE 5% - 0.9 % NACL 1,000 ML IV SCH (20:20)
[2017-05-21] MEDS ORDERED: [UNRECOGNIZED DRUG - OTHER] IV SCH ×10 (22:00)
[2017-05-21] MEDS ORDERED: DEXTROSE 70% IV SCH ×10 (22:00)
[2017-05-21] MEDS ORDERED: TOTAL PARENTERAL NUTRITION IV SCH ×10 (22:00)
[2017-05-21] MEDS ORDERED: AMINO ACIDS IV SCH ×10 (22:00)
[2017-05-21 23:42] VITALS: BP 93/57
[2017-05-22 03:58] VITALS: BP 104/60
[2017-05-22 05:20] LABS: BASO # 0.1 x10^3/uL (0.0-0.2); BASO % 1 % (0-3); EOS % 0 % (0-3); HEMATOCRIT 31.4 % (39.0-53.0); HEMOGLOBIN 10.5 g/dL (13.0-17.5); LYMPH # 0.4 x10^3/uL (1.0-4.8); LYMPH % 3 % (24-48); MEAN CORPUSCULAR HEMOGLOBIN 32 pg (25-35); MEAN CORPUSCULAR HGB CONC 34 g/dL (31-37); MEAN CORPUSCULAR VOLUME 94 fL (79-100); MONO % 9 % (0-9); NEUT % 87 % (31-73); PLATELET COUNT 195 x10^3/uL (140-400); RED BLOOD COUNT 3.33 x10^6/uL (4.30-5.70); RED CELL DISTRIBUTION WIDTH 15.9 % (11.5-14.5); WHITE BLOOD COUNT 13.7 x10^3/uL (4.0-11.0)
[2017-05-22 05:33] LABS: ALBUMIN 1.3 g/dL (3.4-5.0); ALBUMIN/GLOBULIN RATIO 0.3 (1.0-1.7); CREATININE 1.3 mg/dL (0.7-1.3); GFR 53.8; POTASSIUM 3.9 mmol/L (3.5-5.1); TOTAL BILIRUBIN 11.9 mg/dL (0.2-1.0); TOTAL PROTEIN 5.5 g/dL (6.4-8.2)
[2017-05-22] MEDS: IPRATRPIUM/ALBUTEROL 0.5/2.5MG 3 ML NEBU. NEB SCH ×4 (07:13→20:21)
[2017-05-22 07:20] VITALS: BP 106/52
[2017-05-22] MEDS: FUROSEMIDE 20 MG TABLET PO SCH (08:51)
[2017-05-22] MEDS: PANTOPRAZOLE 40 MG TABLET.DR. PO SCH (08:51)
[2017-05-22] MEDS: LACTOBACILLUS RHAMNOSUS GG 1 CAPSULE. PO SCH ×2 (08:51→20:31)
[2017-05-22] MEDS: DOCUSATE SODIUM 100 MG CAPSULE. PO SCH (08:52)
[2017-05-22 10:32] VITALS: BP 100/61
--- NOTE | 2017-05-22 11:16 | PDOC ---
Subjective: Subjective: Feels better overall. Productive cough; has h/o sandip lung infection, feels has similar symptoms now. Tolerating diet, no abd pain. Glad to be off TPN. Objective: Objective: Per RN - eating ~50%. Vital Signs: Vital Signs Date Time Temp Pulse Resp B/P (MAP) Pulse Ox O2 Delivery O2 Flow Rate FiO2 05/22/17 10:32 97.7 85 19 100/61 (74) 94 Nasal Cannula 2.0 97.7 Labs: Laboratory Tests Test 05/22/17 05:00 White Blood Count 13.7 x10^3/uL Red Blood Count 3.33 x10^6/uL Hemoglobin 10.5 g/dL Hematocrit 31.4 % Mean Corpuscular Volume 94 fL Mean Corpuscular Hemoglobin 32 pg Mean Corpuscular Hemoglobin Concent 34 g/dL Red Cell Distribution Width 15.9 % Platelet Count 195 x10^3/uL Neutrophils (%) (Auto) 87 % Lymphocytes (%) (Auto) 3 % Monocytes (%) (Auto) 9 % Eosinophils (%) (Auto) 0 % Basophils (%) (Auto) 1 % Neutrophils # (Auto) 11.9 x10^3uL Lymphocytes # (Auto) 0.4 x10^3/uL Monocytes # (Auto) 1.2 x10^3/uL Eosinophils # (Auto) 0.0 x10^3/uL Basophils # (Auto) 0.1 x10^3/uL Sodium Level 132 mmol/L Potassium Level 3.9 mmol/L Chloride Level 101 mmol/L Carbon Dioxide Level 23 mmol/L Anion Gap 8 Blood Urea Nitrogen 18 mg/dL Creatinine 1.3 mg/dL Estimated GFR (Cockcroft-Gault) 53.8 BUN/Creatinine Ratio 14 Glucose Level 101 mg/dL Calcium Level 8.0 mg/dL Total Bilirubin 11.9 mg/dL Aspartate Amino Transf (AST/SGOT) 131 U/L Alanine Aminotransferase (ALT/SGPT) 57 U/L Alkaline Phosphatase 368 U/L Total Protein 5.5 g/dL Albumin 1.3 g/dL Albumin/Globulin Ratio 0.3 PE: GEN: NAD, up to chair LUNGS: nasal cannula, clear HEART: RRR ABD: soft, non-tender SKIN: +jaundice NEURO/PSYCH: A & O 3, more cheerful today A/P: Choledocholithiasis -this admission: s/p ERCP w/ dilation of CBD stricture, stone extraction, and stent placement -prior to admission: s/p previous cholecystectomy and ERCPs, also liver biopsy - chronic stasis, possible PSC, plans for Ursodiol later -leukocytosis improved, cholangitis on ERCP, on Levaquin -post-ERCP pancreatitis, tolerating more PO, off TPN -- Slow improvement, bili now stable in 11s. GUILLERMINA JAUREGUI May 22, 2017 11:16
--- NOTE | 2017-05-22 11:59 | PDOC ---
Infectious Disease Note Subjective Subjective feeling ok ROS ROS GEN: Denies fevers, chills, sweats HEENT: Denies blurred vision, sore throat CV: Denies chest pain RESP: Denies shortness of air, cough GI: Denies n/v/d NEURO: Denies confusion, dizziness MSK: Denies weakness, joint pain/swelling Vital Sign Vital Signs Vital Signs Date Time Temp Pulse Resp B/P (MAP) Pulse Ox O2 Delivery O2 Flow Rate FiO2 05/22/17 10:32 97.7 85 19 100/61 (74) 94 Nasal Cannula 2.0 97.7 Physical Exam PHYSICAL EXAM GENERAL: NAD, Alert jaundiced HEENT: PERRL, OC/OP NECK: Supple, no JVD, no LN LUNGS: Clear HEART: S1S2, no gallop, no murmur ABD: Soft, NT, no organomegaly, no rebound EXT: No edema, no cyanosis HEAD OF BIOLOGY: Alert, oriented x 3, no focal neurologic deficit SKIN: No rash IV: ok Labs Lab Laboratory Tests Test 05/22/17 05:00 White Blood Count 13.7 x10^3/uL (4.0-11.0) Red Blood Count 3.33 x10^6/uL (4.30-5.70) Hemoglobin 10.5 g/dL (13.0-17.5) Hematocrit 31.4 % (39.0-53.0) Mean Corpuscular Volume 94 fL (79-100) Mean Corpuscular Hemoglobin 32 pg (25-35) Mean Corpuscular Hemoglobin Concent 34 g/dL (31-37) Red Cell Distribution Width 15.9 % (11.5-14.5) Platelet Count 195 x10^3/uL (140-400) Neutrophils (%) (Auto) 87 % (31-73) Lymphocytes (%) (Auto) 3 % (24-48) Monocytes (%) (Auto) 9 % (0-9) Eosinophils (%) (Auto) 0 % (0-3) Basophils (%) (Auto) 1 % (0-3) Neutrophils # (Auto) 11.9 x10^3uL (1.8-7.7) Lymphocytes # (Auto) 0.4 x10^3/uL (1.0-4.8) Monocytes # (Auto) 1.2 x10^3/uL (0.0-1.1) Eosinophils # (Auto) 0.0 x10^3/uL (0.0-0.7) Basophils # (Auto) 0.1 x10^3/uL (0.0-0.2) Sodium Level 132 mmol/L (136-145) Potassium Level 3.9 mmol/L (3.5-5.1) Chloride Level 101 mmol/L (98-107) Carbon Dioxide Level 23 mmol/L (21-32) Anion Gap 8 (6-14) Blood Urea Nitrogen 18 mg/dL (8-26) Creatinine 1.3 mg/dL (0.7-1.3) Estimated GFR (Cockcroft-Gault) 53.8 BUN/Creatinine Ratio 14 (6-20) Glucose Level 101 mg/dL (70-99) Calcium Level 8.0 mg/dL (8.5-10.1) Total Bilirubin 11.9 mg/dL (0.2-1.0) Aspartate Amino Transf (AST/SGOT) 131 U/L (15-37) Alanine Aminotransferase (ALT/SGPT) 57 U/L (16-63) Alkaline Phosphatase 368 U/L (46-116) Total Protein 5.5 g/dL (6.4-8.2) Albumin 1.3 g/dL (3.4-5.0) Albumin/Globulin Ratio 0.3 (1.0-1.7) Objective Assessment Weakness some better. Nml Thyroid Choledocholithiasis and recurrent jaundice. s/p ERCP 05/10 with stone removal Leucocytosis - ? reactive and concentration- on Levofloxacin per GI 05/13, trending down Postprocedure pancreatitis improving slowly, Lipase > 23,000 now down to 320 LLL atelectasis or infiltrate and suspected small left pleural effusion. Mild elevation of procalcitonin but can be elevated with intra-abdominal processes and Renal insuff Weight loss. Malaise and fatigue. History of Serratia marcescens bacteremia in 12/2016, treated. Status post appendectomy and liver biopsy, 02/01/2017 History of diverticulosis on recent colonoscopy. Status post cholecystectomy, ERCP x 2 with sphincterotomy. GERD. Hypertension. DJD, chronic, stable. Plan Plan of Care Cont Levaquin (05/13) for now wean soon probiotics F/u labs MARILIN MOLINA MD May 22, 2017 11:59
[2017-05-22] MEDS: ENOXAPARIN 40 MG/0.4 ML SYRINGE. SQ SCH (13:24)
[2017-05-22] MEDS: IV DEXTROSE 5% - 0.9 % NACL 1,000 ML IV SCH (13:25)
[2017-05-22 14:41] VITALS: BP 109/67
--- NOTE | 2017-05-22 17:20 | PDOC ---
PROGRESS NOTES Chief Complaint Chief Complaint Jaundice ASSESSMENT AND PLAN: 1. Choledocholithiasis: s/p ERCP 05/10 with CBD stone removal and stent placement. Of note, prior biliary obstruction with stones, s/p cholecystectomy and sphincterectomy 08/2015 2. post ERCP pancreatitis: resolved 3. obstructive hepatitis: very slow improvement in LFTs, eileen bili. labs seem to be plateauing. d/c.ed TPN, which may contribute. GI following: hx liver biopsy showing chronic stasis, possible PSC; plans for Ursodiol later 4. Hypoalbuminemia: acute inflammation, liver dz, poss malnutrition as well. protein supplements 5. 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 CAD: no sx. no CHF by echo 7. HTN: well controlled 8. Fluid overload: 2/2 copious IVF during admission, very low albumin. increase home lasix, give IV; monitor BMP closely 9. PNA: ?aspir. completed levaquin x10d, stopped. wean O2, nebs 9. Dry nose: prob 2/2 NC O2. saline nasal spray 10. Urinary frequency: no other sx. UA neg for infection. suspect 2/2 BPH. started flomax 05/19 11. OA: cont home regimen 12. Prophylaxis: PPI, lovenox. 13. Weakness: severe due to prolonged severe illness. OT/PT. rehab soon. d/ w SW History of Present Illness History of Present Illness decreasing urinary frequency. no focal c/o Vitals Vitals Vital Signs Date Time Temp Pulse Resp B/P (MAP) Pulse Ox O2 Delivery O2 Flow Rate FiO2 05/22/17 16:35 97 Nasal Cannula 2.0 05/22/17 14:41 97.6 89 22 109/67 (81) 97.6 Physical Exam General: Alert, Oriented X3, Cooperative, No acute distress Heart: Regular rate Lungs: Clear Abdomen: Normal bowel sounds, Soft, Other (obese, [place]) Extremities: Other (1+ edema) Skin: No rashes, Other (jaundiced) Labs LABS Laboratory Tests Test 05/22/17 05:00 White Blood Count 13.7 x10^3/uL (4.0-11.0) Red Blood Count 3.33 x10^6/uL (4.30-5.70) Hemoglobin 10.5 g/dL (13.0-17.5) Hematocrit 31.4 % (39.0-53.0) Mean Corpuscular Volume 94 fL (79-100) Mean Corpuscular Hemoglobin 32 pg (25-35) Mean Corpuscular Hemoglobin Concent 34 g/dL (31-37) Red Cell Distribution Width 15.9 % (11.5-14.5) Platelet Count 195 x10^3/uL (140-400) Neutrophils (%) (Auto) 87 % (31-73) Lymphocytes (%) (Auto) 3 % (24-48) Monocytes (%) (Auto) 9 % (0-9) Eosinophils (%) (Auto) 0 % (0-3) Basophils (%) (Auto) 1 % (0-3) Neutrophils # (Auto) 11.9 x10^3uL (1.8-7.7) Lymphocytes # (Auto) 0.4 x10^3/uL (1.0-4.8) Monocytes # (Auto) 1.2 x10^3/uL (0.0-1.1) Eosinophils # (Auto) 0.0 x10^3/uL (0.0-0.7) Basophils # (Auto) 0.1 x10^3/uL (0.0-0.2) Sodium Level 132 mmol/L (136-145) Potassium Level 3.9 mmol/L (3.5-5.1) Chloride Level 101 mmol/L (98-107) Carbon Dioxide Level 23 mmol/L (21-32) Anion Gap 8 (6-14) Blood Urea Nitrogen 18 mg/dL (8-26) Creatinine 1.3 mg/dL (0.7-1.3) Estimated GFR (Cockcroft-Gault) 53.8 BUN/Creatinine Ratio 14 (6-20) Glucose Level 101 mg/dL (70-99) Calcium Level 8.0 mg/dL (8.5-10.1) Total Bilirubin 11.9 mg/dL (0.2-1.0) Aspartate Amino Transf (AST/SGOT) 131 U/L (15-37) Alanine Aminotransferase (ALT/SGPT) 57 U/L (16-63) Alkaline Phosphatase 368 U/L (46-116) Total Protein 5.5 g/dL (6.4-8.2) Albumin 1.3 g/dL (3.4-5.0) Albumin/Globulin Ratio 0.3 (1.0-1.7) Nutrition Consultation Dietary Evaluation: Recommendations by RD: PPN/TPN Comments: REC Low Sodium diet Expected Outcomes/Goals: diet adv/ tolerance - met, pt on gi soft diet ~ 75% lunch today new goal: to meet > 75% est nutrition needs via po intake & nutrition support- met new goal: to meet > 75% est nutr needs via po intake Interpretation of weight loss: >1-2% in 1 week Malnutrition Findings: Food and Nutrition Intake (Sev: <50% est energy req 5days Weight Status: Overweight POOJA GALARZA MD May 22, 2017 17:20
[2017-05-22 19:10] VITALS: BP 97/57
[2017-05-22] MEDS: TAMSULOSIN 0.4 MG CAP.ER.24H. PO SCH (20:31)
[2017-05-22 23:15] VITALS: BP 93/54
[2017-05-23 03:20] VITALS: BP 110/72
[2017-05-23 06:49] LABS: BASO % 0 % (0-3); EOS % 0 % (0-3); HEMATOCRIT 30.3 % (39.0-53.0); HEMOGLOBIN 10.1 g/dL (13.0-17.5); LYMPH # 0.5 x10^3/uL (1.0-4.8); LYMPH % 3 % (24-48); MEAN CORPUSCULAR HEMOGLOBIN 32 pg (25-35); MEAN CORPUSCULAR HGB CONC 34 g/dL (31-37); MEAN CORPUSCULAR VOLUME 95 fL (79-100); MONO % 9 % (0-9); NEUT % 87 % (31-73); PLATELET COUNT 182 x10^3/uL (140-400); RED CELL DISTRIBUTION WIDTH 15.5 % (11.5-14.5); WHITE BLOOD COUNT 13.5 x10^3/uL (4.0-11.0)
[2017-05-23 07:00] VITALS: BP 93/53
[2017-05-23 07:11] LABS: ALBUMIN 1.3 g/dL (3.4-5.0); ALBUMIN/GLOBULIN RATIO 0.3 (1.0-1.7); CALCIUM 7.9 mg/dL (8.5-10.1); CREATININE 1.3 mg/dL (0.7-1.3); GFR 53.8; POTASSIUM 3.9 mmol/L (3.5-5.1); TOTAL BILIRUBIN 11.8 mg/dL (0.2-1.0); TOTAL PROTEIN 5.4 g/dL (6.4-8.2)
[2017-05-23] MEDS: IPRATRPIUM/ALBUTEROL 0.5/2.5MG 3 ML NEBU. NEB SCH ×4 (07:46→20:23)
[2017-05-23] MEDS: IV DEXTROSE 5% - 0.9 % NACL 1,000 ML IV SCH (08:11)
[2017-05-23] MEDS: FUROSEMIDE 40 MG/4 ML VIAL. IVP SCH (08:11)
[2017-05-23] MEDS: PANTOPRAZOLE 40 MG TABLET.DR. PO SCH (08:12)
[2017-05-23] MEDS: LACTOBACILLUS RHAMNOSUS GG 1 CAPSULE. PO SCH ×2 (08:12→21:20)
[2017-05-23] MEDS: DOCUSATE SODIUM 100 MG CAPSULE. PO SCH ×2 (08:13→21:00)
[2017-05-23 11:00] VITALS: BP 93/59
--- NOTE | 2017-05-23 11:45 | PDOC ---
Subjective: Subjective: Was working w/ OT, now needs to use urinal. Says feeling better, eating okay. Objective: Objective: Stool charted. Vital Signs: Vital Signs Date Time Temp Pulse Resp B/P (MAP) Pulse Ox O2 Delivery O2 Flow Rate FiO2 05/23/17 11:00 97.8 85 20 93/59 (70) 94 Room Air 97.8 05/23/17 08:00 2.0 Labs: Laboratory Tests Test 05/23/17 06:40 White Blood Count 13.5 x10^3/uL Red Blood Count 3.20 x10^6/uL Hemoglobin 10.1 g/dL Hematocrit 30.3 % Mean Corpuscular Volume 95 fL Mean Corpuscular Hemoglobin 32 pg Mean Corpuscular Hemoglobin Concent 34 g/dL Red Cell Distribution Width 15.5 % Platelet Count 182 x10^3/uL Neutrophils (%) (Auto) 87 % Lymphocytes (%) (Auto) 3 % Monocytes (%) (Auto) 9 % Eosinophils (%) (Auto) 0 % Basophils (%) (Auto) 0 % Neutrophils # (Auto) 11.7 x10^3uL Lymphocytes # (Auto) 0.5 x10^3/uL Monocytes # (Auto) 1.3 x10^3/uL Eosinophils # (Auto) 0.1 x10^3/uL Basophils # (Auto) 0.0 x10^3/uL Sodium Level 134 mmol/L Potassium Level 3.9 mmol/L Chloride Level 104 mmol/L Carbon Dioxide Level 22 mmol/L Anion Gap 8 Blood Urea Nitrogen 17 mg/dL Creatinine 1.3 mg/dL Estimated GFR (Cockcroft-Gault) 53.8 BUN/Creatinine Ratio 13 Glucose Level 94 mg/dL Calcium Level 7.9 mg/dL Total Bilirubin 11.8 mg/dL Aspartate Amino Transf (AST/SGOT) 124 U/L Alanine Aminotransferase (ALT/SGPT) 55 U/L Alkaline Phosphatase 355 U/L Total Protein 5.4 g/dL Albumin 1.3 g/dL Albumin/Globulin Ratio 0.3 PE: GEN: NAD LUNGS: tachypneic HEART: RRR ABD: S/ND/NT SKIN: jaundice NEURO/PSYCH: A & O 3 A/P: Choledocholithiasis, cholangitis -s/p ERCP w/ dilation of CBD stricture, stone extraction, and stent placement -on Levaquin -post-ERCP pancreatitis resolved -bili stable in 11s (improved since admission), other LFTs improved -- Ursodiol and stent removal as outpt. GUILLERMINA JAUREGUI May 23, 2017 11:45
[2017-05-23] MEDS: ENOXAPARIN 40 MG/0.4 ML SYRINGE. SQ SCH (13:25)
[2017-05-23 15:00] VITALS: BP 97/51
--- NOTE | 2017-05-23 16:24 | PDOC ---
PROGRESS NOTES Chief Complaint Chief Complaint Jaundice ASSESSMENT AND PLAN: 1. Choledocholithiasis: s/p ERCP 05/10 with CBD stone removal and stent placement. Of note, prior biliary obstruction with stones, s/p cholecystectomy and sphincterectomy 08/2015 2. post ERCP pancreatitis: resolved 3. obstructive hepatitis: very slow improvement in LFTs, eileen bili. labs seem to be plateauing. d/c.ed TPN, which may contribute. GI following: hx liver biopsy showing chronic stasis, possible PSC; plans for Ursodiol later 4. Hypoalbuminemia: acute inflammation, liver dz, poss malnutrition as well. protein supplements 5. 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 CAD: no sx. no CHF by echo 7. HTN: well controlled 8. Fluid overload: 2/2 copious IVF during admission, very low albumin. increase home lasix, give IV; monitor BMP closely 9. PNA: ?aspir. completed levaquin x10d, stopped. wean O2, nebs 9. Dry nose: prob 2/2 NC O2. saline nasal spray 10. Urinary frequency: no other sx. UA neg for infection. suspect 2/2 BPH. started flomax 05/19 11. OA: cont home regimen 12. Prophylaxis: PPI, lovenox. 13. Weakness: severe due to prolonged severe illness. OT/PT. rehab soon. d/ w SW History of Present Illness History of Present Illness decreasing urinary frequency. no focal c/o Vitals Vitals Vital Signs Date Time Temp Pulse Resp B/P (MAP) Pulse Ox O2 Delivery O2 Flow Rate FiO2 05/23/17 15:50 Room Air 05/23/17 11:00 97.8 85 20 93/59 (70) 94 97.8 05/23/17 08:00 2.0 Physical Exam General: Alert, Oriented X3, Cooperative, No acute distress Heart: Regular rate Lungs: Clear Abdomen: Normal bowel sounds, Soft, Other (obese, anacerca) Extremities: Other (1+ edema) Skin: No rashes, Other (jaundiced) Labs LABS Laboratory Tests Test 05/23/17 06:40 White Blood Count 13.5 x10^3/uL (4.0-11.0) Red Blood Count 3.20 x10^6/uL (4.30-5.70) Hemoglobin 10.1 g/dL (13.0-17.5) Hematocrit 30.3 % (39.0-53.0) Mean Corpuscular Volume 95 fL (79-100) Mean Corpuscular Hemoglobin 32 pg (25-35) Mean Corpuscular Hemoglobin Concent 34 g/dL (31-37) Red Cell Distribution Width 15.5 % (11.5-14.5) Platelet Count 182 x10^3/uL (140-400) Neutrophils (%) (Auto) 87 % (31-73) Lymphocytes (%) (Auto) 3 % (24-48) Monocytes (%) (Auto) 9 % (0-9) Eosinophils (%) (Auto) 0 % (0-3) Basophils (%) (Auto) 0 % (0-3) Neutrophils # (Auto) 11.7 x10^3uL (1.8-7.7) Lymphocytes # (Auto) 0.5 x10^3/uL (1.0-4.8) Monocytes # (Auto) 1.3 x10^3/uL (0.0-1.1) Eosinophils # (Auto) 0.1 x10^3/uL (0.0-0.7) Basophils # (Auto) 0.0 x10^3/uL (0.0-0.2) Sodium Level 134 mmol/L (136-145) Potassium Level 3.9 mmol/L (3.5-5.1) Chloride Level 104 mmol/L (98-107) Carbon Dioxide Level 22 mmol/L (21-32) Anion Gap 8 (6-14) Blood Urea Nitrogen 17 mg/dL (8-26) Creatinine 1.3 mg/dL (0.7-1.3) Estimated GFR (Cockcroft-Gault) 53.8 BUN/Creatinine Ratio 13 (6-20) Glucose Level 94 mg/dL (70-99) Calcium Level 7.9 mg/dL (8.5-10.1) Total Bilirubin 11.8 mg/dL (0.2-1.0) Aspartate Amino Transf (AST/SGOT) 124 U/L (15-37) Alanine Aminotransferase (ALT/SGPT) 55 U/L (16-63) Alkaline Phosphatase 355 U/L (46-116) Total Protein 5.4 g/dL (6.4-8.2) Albumin 1.3 g/dL (3.4-5.0) Albumin/Globulin Ratio 0.3 (1.0-1.7) Assessment and Plan Assessmemt and Plan Problems Medical Problems: (1) Jaundice Status: Acute (2) Liver failure Status: Acute Problems: Comment Review of Relevant I have reviewed the following items jadon (where applicable) has been applied. Labs Chief Complaint Chief Complaint Jaundice ASSESSMENT AND PLAN: 1. Choledocholithiasis: s/p ERCP 05/10 with CBD stone removal and stent placement. Of note, prior biliary obstruction with stones, s/p cholecystectomy and sphincterectomy 08/2015 2. post ERCP pancreatitis: resolved 3. obstructive hepatitis: very slow improvement in LFTs, eileen bili. labs seem to be plateauing. d/c.ed TPN, which may contribute. GI following: hx liver biopsy showing chronic stasis, possible PSC; plans for Ursodiol later 4. Hypoalbuminemia: acute inflammation, liver dz, poss malnutrition as well. protein supplements 5. 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 CAD: no sx. no CHF by echo 7. HTN: well controlled 8. Fluid overload: 2/2 copious IVF during admission, very low albumin. increase home lasix, give IV; monitor BMP closely 9. PNA: ?aspir. completed levaquin x10d, stopped. wean O2, nebs 9. Dry nose: prob 2/2 NC O2. saline nasal spray 10. Urinary frequency: no other sx. UA neg for infection. suspect 2/2 BPH. started flomax 05/19 11. OA: cont home regimen 12. Prophylaxis: PPI, lovenox. 13. Weakness: severe due to prolonged severe illness. OT/PT. rehab soon. d/ w SW History of Present Illness History of Present Illness decreasing urinary frequency. no focal c/o Vitals Vitals Vital Signs Date Time Temp Pulse Resp B/P (MAP) Pulse Ox O2 Delivery O2 Flow Rate FiO2 05/22/17 16:35 97 Nasal Cannula 2.0 05/22/17 14:41 97.6 89 22 109/67 (81) 97.6 Physical Exam General: Alert, Oriented X3, Cooperative, No acute distress Heart: Regular rate Lungs: Clear Abdomen: Normal bowel sounds, Soft, Other (obese, anacerca) Extremities: Other (1+ edema) Skin: No rashes, Other (jaundiced) Labs LABS Laboratory Tests Test 05/22/17 05:00 05/23/17 06:40 White Blood Count 13.7 x10^3/uL (4.0-11.0) 13.5 x10^3/uL (4.0-11.0) Red Blood Count 3.33 x10^6/uL (4.30-5.70) 3.20 x10^6/uL (4.30-5.70) Hemoglobin 10.5 g/dL (13.0-17.5) 10.1 g/dL (13.0-17.5) Hematocrit 31.4 % (39.0-53.0) 30.3 % (39.0-53.0) Mean Corpuscular Volume 94 fL (79-100) 95 fL (79-100) Mean Corpuscular Hemoglobin 32 pg (25-35) 32 pg (25-35) Mean Corpuscular Hemoglobin Concent 34 g/dL (31-37) 34 g/dL (31-37) Red Cell Distribution Width 15.9 % (11.5-14.5) 15.5 % (11.5-14.5) Platelet Count 195 x10^3/uL (140-400) 182 x10^3/uL (140-400) Neutrophils (%) (Auto) 87 % (31-73) 87 % (31-73) Lymphocytes (%) (Auto) 3 % (24-48) 3 % (24-48) Monocytes (%) (Auto) 9 % (0-9) 9 % (0-9) Eosinophils (%) (Auto) 0 % (0-3) 0 % (0-3) Basophils (%) (Auto) 1 % (0-3) 0 % (0-3) Neutrophils # (Auto) 11.9 x10^3uL (1.8-7.7) 11.7 x10^3uL (1.8-7.7) Lymphocytes # (Auto) 0.4 x10^3/uL (1.0-4.8) 0.5 x10^3/uL (1.0-4.8) Monocytes # (Auto) 1.2 x10^3/uL (0.0-1.1) 1.3 x10^3/uL (0.0-1.1) Eosinophils # (Auto) 0.0 x10^3/uL (0.0-0.7) 0.1 x10^3/uL (0.0-0.7) Basophils # (Auto) 0.1 x10^3/uL (0.0-0.2) 0.0 x10^3/uL (0.0-0.2) Sodium Level 132 mmol/L (136-145) 134 mmol/L (136-145) Potassium Level 3.9 mmol/L (3.5-5.1) 3.9 mmol/L (3.5-5.1) Chloride Level 101 mmol/L (98-107) 104 mmol/L (98-107) Carbon Dioxide Level 23 mmol/L (21-32) 22 mmol/L (21-32) Anion Gap 8 (6-14) 8 (6-14) Blood Urea Nitrogen 18 mg/dL (8-26) 17 mg/dL (8-26) Creatinine 1.3 mg/dL (0.7-1.3) 1.3 mg/dL (0.7-1.3) Estimated GFR (Cockcroft-Gault) 53.8 53.8 BUN/Creatinine Ratio 14 (6-20) 13 (6-20) Glucose Level 101 mg/dL (70-99) 94 mg/dL (70-99) Calcium Level 8.0 mg/dL (8.5-10.1) 7.9 mg/dL (8.5-10.1) Total Bilirubin 11.9 mg/dL (0.2-1.0) 11.8 mg/dL (0.2-1.0) Aspartate Amino Transf (AST/SGOT) 131 U/L (15-37) 124 U/L (15-37) Alanine Aminotransferase (ALT/SGPT) 57 U/L (16-63) 55 U/L (16-63) Alkaline Phosphatase 368 U/L (46-116) 355 U/L (46-116) Total Protein 5.5 g/dL (6.4-8.2) 5.4 g/dL (6.4-8.2) Albumin 1.3 g/dL (3.4-5.0) 1.3 g/dL (3.4-5.0) Albumin/Globulin Ratio 0.3 (1.0-1.7) 0.3 (1.0-1.7) Laboratory Tests Test 05/23/17 06:40 White Blood Count 13.5 x10^3/uL (4.0-11.0) Red Blood Count 3.20 x10^6/uL (4.30-5.70) Hemoglobin 10.1 g/dL (13.0-17.5) Hematocrit 30.3 % (39.0-53.0) Mean Corpuscular Volume 95 fL (79-100) Mean Corpuscular Hemoglobin 32 pg (25-35) Mean Corpuscular Hemoglobin Concent 34 g/dL (31-37) Red Cell Distribution Width 15.5 % (11.5-14.5) Platelet Count 182 x10^3/uL (140-400) Neutrophils (%) (Auto) 87 % (31-73) Lymphocytes (%) (Auto) 3 % (24-48) Monocytes (%) (Auto) 9 % (0-9) Eosinophils (%) (Auto) 0 % (0-3) Basophils (%) (Auto) 0 % (0-3) Neutrophils # (Auto) 11.7 x10^3uL (1.8-7.7) Lymphocytes # (Auto) 0.5 x10^3/uL (1.0-4.8) Monocytes # (Auto) 1.3 x10^3/uL (0.0-1.1) Eosinophils # (Auto) 0.1 x10^3/uL (0.0-0.7) Basophils # (Auto) 0.0 x10^3/uL (0.0-0.2) Sodium Level 134 mmol/L (136-145) Potassium Level 3.9 mmol/L (3.5-5.1) Chloride Level 104 mmol/L (98-107) Carbon Dioxide Level 22 mmol/L (21-32) Anion Gap 8 (6-14) Blood Urea Nitrogen 17 mg/dL (8-26) Creatinine 1.3 mg/dL (0.7-1.3) Estimated GFR (Cockcroft-Gault) 53.8 BUN/Creatinine Ratio 13 (6-20) Glucose Level 94 mg/dL (70-99) Calcium Level 7.9 mg/dL (8.5-10.1) Total Bilirubin 11.8 mg/dL (0.2-1.0) Aspartate Amino Transf (AST/SGOT) 124 U/L (15-37) Alanine Aminotransferase (ALT/SGPT) 55 U/L (16-63) Alkaline Phosphatase 355 U/L (46-116) Total Protein 5.4 g/dL (6.4-8.2) Albumin 1.3 g/dL (3.4-5.0) Albumin/Globulin Ratio 0.3 (1.0-1.7) Microbiology 05/09/17 Blood Culture - Final, Complete NO GROWTH AFTER 5 DAYS 05/19/17 Urine Culture - Final, Complete 05/19/17 Urine Culture Result 1 (CHELE) - Final, Complete Medications Current Medications Docusate Sodium (Colace) 100 mg BID PO Last administered on 05/23/17 08:13; Start 05/09/17 at 21:00 Acetaminophen/ Hydrocodone Bitart (Lortab 5/325) 1 tab PRN Q6HRS PRN PO PAIN; Start 05/09/17 at 14:15; Status Cancel Pantoprazole Sodium (Protonix) 40 mg DAILYAC PO ; Start 05/09/17 at 14:30; Stop 05/11/17 at 07:46; Status DC Diphenhydramine HCl (Benadryl) 25 mg PRN QHS PRN PO INSOMNIA Last administered on 05/14/17 22:07; Start 05/09/17 at 14:15 Acetaminophen/ Hydrocodone Bitart (Lortab 5/325) 1 tab PRN Q4HRS PRN PO MODERATE - SEVERE PAIN Last administered on 05/15/17 22:41; Start 05/09/17 at 14:15 Ondansetron HCl (Zofran) 4 mg PRN Q6HRS PRN IV NAUSEA/VOMITING; Start 05/09/17 at 14:15; Stop 05/10/17 at 16:18; Status DC Levofloxacin/ Dextrose 100 ml @ 100 mls/hr Q24H IV Last administered on 16:45; Start 05/09/17 at 16:00; Stop 05/10/17 at 10:51; Status DC Acetaminophen (Tylenol) 650 mg PRN Q6HRS PRN PO FEVER; Start 05/10/17 at 12:45 Ondansetron HCl (Zofran) 4 mg PRN Q6HRS PRN IV NAUSEA/VOMITING; Start 05/10/17 at 12:45 Morphine Sulfate 2 mg PRN Q2HR PRN IV PAIN Last administered on 05/16/17 23: 57; Start 05/10/17 at 12:45; Stop 05/18/17 at 17:46; Status DC Tramadol HCl (Ultram) 50 mg PRN Q6HRS PRN PO MILD PAIN Last administered on 13:22; Start 05/10/17 at 12:45 Hydralazine HCl (Apresoline Inj) 10 mg PRN Q4HRS PRN IVP ELEVATED BP, SEE COMMENTS; Start 05/10/17 at 12:45 Docusate Sodium (Colace) 100 mg PRN DAILY PRN PO CONSTIPATION; Start 05/10/17 at 12:45; Stop 05/18/17 at 17:46; Status DC Enoxaparin Sodium (Lovenox 40mg Syringe) 40 mg Q24H SQ Last administered on 13:25; Start 05/10/17 at 13:00 Iohexol (Omnipaque 300 Mg/ml) 100 ml STK-MED ONCE .ROUTE ; Start 05/10/17 at 14: 43; Stop 05/10/17 at 14:44; Status DC Ringer's Solution 1,000 ml @ 75 mls/hr 1X ONCE IV Last administered on 16:05; Start 05/10/17 at 16:15; Stop 05/11/17 at 05:34; Status DC Propofol 20 ml @ As Directed STK-MED ONCE IV ; Start 05/10/17 at 16:39; Stop at 16:40; Status DC Succinylcholine Chloride (Anectine) 200 mg STK-MED ONCE .ROUTE ; Start 05/10/17 at 16:39; Stop 05/10/17 at 16:40; Status DC Lidocaine HCl (Lidocaine Pf 2% Vial) 5 ml STK-MED ONCE .ROUTE ; Start 05/10/17 at 16:39; Stop 05/10/17 at 16:40; Status DC Phenylephrine HCl (Jeffrey-Synephrine Inj) 10 mg STK-MED ONCE .ROUTE ; Start at 16:41; Stop 05/10/17 at 16:42; Status DC Levofloxacin/ Dextrose 100 ml @ As Directed STK-MED ONCE IV ; Start 05/10/17 at 17:44; Stop 05/10/17 at 17:45; Status DC Lidocaine HCl (Lidocaine Pf 2% Vial) 5 ml STK-MED ONCE .ROUTE ; Start 05/10/17 at 18:57; Stop 05/10/17 at 18:58; Status DC Iohexol (Omnipaque 300 Mg/ml) 100 ml STK-MED ONCE INT CAT Last administered on 05/10/17 18:58; Start 05/10/17 at 18:58; Stop 05/10/17 at 19:00; Status DC Levofloxacin/ Dextrose 100 ml @ 100 mls/hr Q24H IV Last administered on 09:20; Start 05/11/17 at 08:00; Stop 05/12/17 at 19:03; Status DC Simethicone (Gas-X) 80 mg PRN AFTMEALHC PRN PO GAS / BLOATING Last administered on 05/20/17 20:47; Start 05/11/17 at 02:45 Morphine Sulfate 4 mg PRN Q2HR PRN IV SEVERE PAIN Last administered on 19:41; Start 05/11/17 at 06:15; Stop 05/16/17 at 21:36; Status DC Ketorolac Tromethamine (Toradol) 30 mg 1X ONCE IV Last administered on 07:57; Start 05/11/17 at 08:00; Stop 05/11/17 at 08:01; Status DC Sodium Chloride 1,000 ml @ 50 mls/hr Q20H IV Last administered on 05/15/17 13:42; Start 05/11/17 at 08:00; Stop 05/15/17 at 19:32; Status DC Pantoprazole Sodium (Protonix Vial) 40 mg DAILYAC IVP Last administered on 09:01; Start 05/11/17 at 08:00; Stop 05/15/17 at 19:15; Status DC Amino Acids/ Glycerin/ Electrolytes 1,000 ml @ 80 mls/hr [id number] IV Last administered on 05/18/17 11:29; Start 05/11/17 at 12:00; Stop 05/18/17 at 17: 46; Status DC Ketorolac Tromethamine (Toradol) 30 mg PRN Q6HRS PRN IV PAIN Last administered on 05/12/17 03:11; Start 05/11/17 at 12:00; Stop 05/15/17 at 10:00; Status DC Levofloxacin/ Dextrose 100 ml @ 100 mls/hr Q24H IV ; Start 05/11/17 at 18:00; Status Cancel Albuterol Sulfate (Ventolin Neb Soln) 2.5 mg PRN Q4HRS PRN NEB SHORTNESS OF BREATH Last administered on 05/18/17 09:21; Start 05/12/17 at 14:30 Levofloxacin (Levaquin) 500 mg DAILY PO Last administered on 05/21/17 08:13; Start 05/13/17 at 09:00; Stop 05/21/17 at 17:49; Status DC Lactobacillus Rhamnosus (Culturelle) 1 cap BID PO Last administered on 08:12; Start 05/12/17 at 21:00 Pneumococcal Polyvalent Vaccine (Do NOT chart on this placeholder) 1 each PRN DAILY PRN MC LAST DATE UNKNOWN; Start 05/14/17 at 03:30; Status Cancel Pneumococcal Polyvalent Vaccine (Pneumovax 23) 0.5 ml ONCE ONCE VAX IM ; Start 05/16/17 at 09:00; Stop 05/16/17 at 09:01; Status DC Furosemide (Lasix) 20 mg DAILY PO Last administered on 05/22/17 08:51; Start 05/15/17 at 17:45; Stop 05/22/17 at 17:47; Status DC Pantoprazole Sodium (Protonix) 40 mg DAILYAC PO Last administered on 08:12; Start 05/16/17 at 07:30 Polyethylene Glycol (miraLAX PACKET) 17 gm PRN BID PRN PO CONSTIPATION Last administered on 05/15/17 22:41; Start 05/15/17 at 19:30 Furosemide (Lasix) 20 mg 1X ONCE IVP Last administered on 11/13/17at 22:42; Start 05/15/17 at 19:30; Stop 05/15/17 at 19:34; Status DC Iohexol (Omnipaque 300 Mg/ml) 30 ml 1X ONCE PO ; Start 05/16/17 at 09:30; Stop 05/16/17 at 09:32; Status DC Iohexol (Omnipaque 240 Mg/ml) 75 ml 1X ONCE IV ; Start 05/16/17 at 09:30; Stop 05/16/17 at 09:32; Status DC Info (Do NOT chart on this entry -- for MONITORING) 1 each PRN DAILY PRN MC SEE COMMENTS; Start 05/16/17 at 09:45; Stop 05/18/17 at 09:44; Status DC Iohexol (Omnipaque 300 Mg/ml) 75 ml 1X ONCE IV ; Start 05/16/17 at 09:45; Stop 05/16/17 at 09:48; Status DC Info (Do NOT chart on this entry -- for MONITORING) 1 each PRN DAILY PRN MC SEE COMMENTS; Start 05/16/17 at 10:00; Stop 05/18/17 at 09:59; Status DC Albuterol/ Ipratropium (Duoneb) 3 ml RTQID NEB Last administered on 05/23/17t 15:50; Start 05/17/17 at 08:00 Info 1 each PRN DAILY PRN MC SEE COMMENTS Last administered on 05/21/17t 12:57 ; Start 05/17/17 at 23:15; Stop 05/21/17 at 17:47; Status DC Sodium Chloride 90 meq/Potassium Chloride 50 meq/ Potassium Phosphate 13.6 mmol/ Magnesium Sulfate 10 meq/ Calcium Gluconate 10 meq/ Multivitamins 10 ml/Chromium / Copper/Manganese/ Seleni/Zn 1 ml/ Total Parenteral Nutrition/Amino Acids/ Dextrose/ Fat Emulsion Intravenous 1,512 ml @ 63 mls/hr TPN CONT IV ; Start 05/18/17 at 22:00; Stop 05/18/17 at 22:00; Status DC Sodium Chloride 90 meq/Potassium Chloride 50 meq/ Potassium Phosphate 13.6 mmol/ Magnesium Sulfate 10 meq/ Calcium Gluconate 10 meq/ Multivitamins 10 ml/Chromium / Copper/Manganese/ Seleni/Zn 1 ml/ Total Parenteral Nutrition/Amino Acids/ Dextrose/ Fat Emulsion Intravenous 1,512 ml @ 63 mls/hr TPN CONT IV Last administered on 05/18/17 22:26; Start 05/18/17 at 22:00; Stop 05/19/17 at 21 :59; Status DC Sodium Chloride 90 meq/Potassium Chloride 50 meq/ Potassium Phosphate 13.6 mmol/ Magnesium Sulfate 10 meq/ Calcium Gluconate 10 meq/ Multivitamins 10 ml/Chromium / Copper/Manganese/ Seleni/Zn 1 ml/ Total Parenteral Nutrition/Amino Acids/ Dextrose/ Fat Emulsion Intravenous 1,512 ml @ 63 mls/hr TPN CONT IV Last administered on 05/19/17 22:00; Start 05/19/17 at 22:00; Stop 05/20/17 at 21 :59; Status DC Tamsulosin HCl (Flomax) 0.4 mg QHS PO Last administered on 05/22/17 20:31; Start 05/19/17 at 21:00 Sodium Chloride 90 meq/Potassium Chloride 50 meq/ Potassium Phosphate 13.6 mmol/ Magnesium Sulfate 10 meq/ Calcium Gluconate 10 meq/ Multivitamins 10 ml/Chromium / Copper/Manganese/ Seleni/Zn 1 ml/ Total Parenteral Nutrition/Amino Acids/ Dextrose/ Fat Emulsion Intravenous 1,512 ml @ 63 mls/hr TPN CONT IV Last administered on 05/20/17 22:49; Start 05/20/17 at 22:00; Stop 05/21/17 at 17 :42; Status DC Sodium Chloride (Saline Mist Nasal) 1 federico PRN Q1HR PRN NS NASAL CONGESTION Last administered on 05/21/17 14:52; Start 05/20/17 at 17:45 Sodium Chloride 90 meq/Potassium Chloride 50 meq/ Potassium Phosphate 13.6 mmol/ Magnesium Sulfate 10 meq/ Calcium Gluconate 5 meq/ Multivitamins 10 ml/Chromium / Copper/Manganese/ Seleni/Zn 1 ml/ Total Parenteral Nutrition/Amino Acids/ Dextrose/ Fat Emulsion Intravenous 1,512 ml @ 63 mls/hr TPN CONT IV ; Start 05/21/17 at 22:00; Stop 05/21/17 at 22:00; Status DC Dextrose/Sodium Chloride 1,000 ml @ 50 mls/hr Q20H IV Last administered on 08:11; Start 05/21/17 at 17:45 Furosemide (Lasix) 40 mg DAILY IVP Last administered on 11/21/17at 08:11; Start 05/23/17 at 09:00 Active Scripts Active Pantoprazole Sodium 40 Mg Tablet. 40 Mg PO DAILYAC Reported Divalproex Sodium 500 Mg Tablet. 500 Mg PO BID Citalopram Hbr (Citalopram Hydrobromide) 20 Mg Tablet 20 Mg PO DAILY Vitamin D3 (Cholecalciferol (Vitamin D3)) 5,000 Unit Tablet 5,000 Unit PO WEEKLY Vitamin D3 (Cholecalciferol (Vitamin D3)) 5,000 Unit Tablet 5,000 Unit PO DAILY Thera-M (Multivits, W-Fe,Other Min) 1 Each Tablet 1 Each PO DAILY Senna (Sennosides) 8.6 Mg Tablet 8.6 Mg PO DAILY Risperidone 0.5 Mg Tablet 0.25 Mg PO BID Tradjenta (Linagliptin) 5 Mg Tablet 5 Mg PO DAILY Olanzapine 5 Mg Tablet 2.5 Mg PO PRN Q2HRS PRN Potassium Chloride 10 Meq Tablet.er 10 Meq PO DAILY Mirtazapine 15 Mg Tablet 15 Mg PO QHS Gabapentin 100 Mg Capsule 200 Mg PO TID Omeprazole 20 Mg Capsule.dr 20 Mg PO PRN Sulfamethoxazole-Tmp Ds Tablet (Sulfamethoxazole/Trimethoprim) 1 Each Tablet 1 Tab PO BID [facility] Rx Capsule (Lactobacillus Casei/Folic Acid) 1 Each Capsule 1 Each PO HS Hydrocodone-Apap 5-325 (Hydrocodone Bit/Acetaminophen) 1 Each Tablet 1-2 Tab PO PRN Q6HRS PRN LAST DOSE GIVEN: DATE: TIME: Colace (Docusate Sodium) 100 Mg Capsule 1 Cap PO BID Vitals/I & O Vital Sign - Last 24 Hours 05/22/17 05/22/17 05/22/17 05/22/17 16:29 16:35 19:10 20:00 Temp 97.5 97.5 Pulse 93 Resp 18 B/P (MAP) 97/57 (70) Pulse Ox 93 97 96 O2 Delivery Room Air Nasal Cannula Room Air Room Air O2 Flow Rate 2.0 05/22/17 05/22/17 05/23/17 05/23/17 20:22 23:15 03:20 07:00 Temp 98.2 98.2 98.3 98.2 98.2 98.3 Pulse 87 95 64 Resp 18 18 20 B/P (MAP) 93/54 (67) 110/72 (85) 93/53 (66) Pulse Ox 96 95 93 93 O2 Delivery Room Air Room Air Room Air Room Air 05/23/17 05/23/17 05/23/17 05/23/17 07:47 07:58 08:00 11:00 Temp 97.8 97.8 Pulse 85 Resp 20 B/P (MAP) 93/59 (70) Pulse Ox 93 94 O2 Delivery Room Air Room Air Room Air Room Air O2 Flow Rate 2.0 05/23/17 05/23/17 11:47 15:50 O2 Delivery Room Air Room Air Intake and Output 05/22/17 05/22/17 05/23/17 14:59 22:59 06:59 Intake Total 120 ml 500 ml 0 ml Output Total 250 ml 600 ml 300 ml Balance -130 ml -100 ml -300 ml Nutrition Consultation Dietary Evaluation: Recommendations by RD: PPN/TPN Comments: REC Low Sodium diet Expected Outcomes/Goals: diet adv/ tolerance - met, pt on gi soft diet ~ 75% lunch today new goal: to meet > 75% est nutrition needs via po intake & nutrition support- met new goal: to meet > 75% est nutr needs via po intake Interpretation of weight loss: >1-2% in 1 week Malnutrition Findings: Food and Nutrition Intake (Sev: <50% est energy req 5days Weight Status: Overweight BERNARD GRACE MD May 23, 2017 16:23
[2017-05-23 19:20] VITALS: BP 99/63
[2017-05-23] MEDS: TAMSULOSIN 0.4 MG CAP.ER.24H. PO SCH (21:20)
[2017-05-23 22:33] LABS: BASO # 0.1 x10^3/uL (0.0-0.2); BASO % 1 % (0-3); EOS % 0 % (0-3); HEMATOCRIT 30.3 % (39.0-53.0); HEMOGLOBIN 10.1 g/dL (13.0-17.5); LYMPH # 0.6 x10^3/uL (1.0-4.8); LYMPH % 5 % (24-48); MEAN CORPUSCULAR HEMOGLOBIN 32 pg (25-35); MEAN CORPUSCULAR HGB CONC 33 g/dL (31-37); MEAN CORPUSCULAR VOLUME 94 fL (79-100); MONO % 10 % (0-9); NEUT % 84 % (31-73); PLATELET COUNT 249 x10^3/uL (140-400); RED BLOOD COUNT 3.21 x10^6/uL (4.30-5.70); RED CELL DISTRIBUTION WIDTH 15.4 % (11.5-14.5)
[2017-05-23 23:20] VITALS: BP 103/63
[2017-05-24 03:20] VITALS: BP 105/66
[2017-05-24] MEDS: IV DEXTROSE 5% - 0.9 % NACL 1,000 ML IV SCH (03:35)
[2017-05-24 04:54] LABS: BASO % 0 % (0-3); EOS % 1 % (0-3); HEMATOCRIT 28.9 % (39.0-53.0); HEMOGLOBIN 9.8 g/dL (13.0-17.5); LYMPH # 0.6 x10^3/uL (1.0-4.8); LYMPH % 5 % (24-48); MEAN CORPUSCULAR HEMOGLOBIN 32 pg (25-35); MEAN CORPUSCULAR HGB CONC 34 g/dL (31-37); MEAN CORPUSCULAR VOLUME 94 fL (79-100); MONO % 9 % (0-9); NEUT % 85 % (31-73); PLATELET COUNT 260 x10^3/uL (140-400); RED BLOOD COUNT 3.06 x10^6/uL (4.30-5.70); RED CELL DISTRIBUTION WIDTH 15.7 % (11.5-14.5); WHITE BLOOD COUNT 13.2 x10^3/uL (4.0-11.0)
[2017-05-24 05:17] LABS: ALBUMIN 1.4 g/dL (3.4-5.0); ALBUMIN/GLOBULIN RATIO 0.3 (1.0-1.7); CALCIUM 7.8 mg/dL (8.5-10.1); CREATININE 1.4 mg/dL (0.7-1.3); GFR 49.4; POTASSIUM 3.5 mmol/L (3.5-5.1); TOTAL BILIRUBIN 12.2 mg/dL (0.2-1.0); TOTAL PROTEIN 5.8 g/dL (6.4-8.2)
[2017-05-24 07:00] VITALS: BP 96/58
[2017-05-24] MEDS: PANTOPRAZOLE 40 MG TABLET.DR. PO SCH (07:30)
[2017-05-24] MEDS: IPRATRPIUM/ALBUTEROL 0.5/2.5MG 3 ML NEBU. NEB SCH ×4 (08:12→19:42)
[2017-05-24] MEDS: LACTOBACILLUS RHAMNOSUS GG 1 CAPSULE. PO SCH ×2 (08:49→21:43)
[2017-05-24] MEDS: DOCUSATE SODIUM 100 MG CAPSULE. PO SCH ×2 (08:49→21:00)
--- NOTE | 2017-05-24 10:44 | PDOC ---
PROGRESS NOTES Chief Complaint Chief Complaint Jaundice ASSESSMENT AND PLAN: 1. Choledocholithiasis: s/p ERCP 05/10 with CBD stone removal and stent placement. Of note, prior biliary obstruction with stones, s/p cholecystectomy and sphincterectomy 08/2015 2. post ERCP pancreatitis: EGD today, possible stent removal 3. obstructive hepatitis: very slow improvement in LFTs, eileen bili. labs seem to be plateauing. d/c.ed TPN, which may contribute. GI following: hx liver biopsy showing chronic stasis, possible PSC; plans for Ursodiol later 4. Hypoalbuminemia: acute inflammation, liver dz, poss malnutrition as well. protein supplements 5. 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 CAD: no sx. no CHF by echo 7. HTN: well controlled 8. Fluid overload: 2/2 copious IVF during admission, very low albumin. increase home lasix, give IV; monitor BMP closely 9. PNA: ?aspir. completed levaquin x10d, stopped. wean O2, nebs 9. Dry nose: prob 2/2 NC O2. saline nasal spray 10. Urinary frequency: no other sx. UA neg for infection. suspect 2/2 BPH. continue flomax 11. OA: cont home regimen 12. Prophylaxis: PPI, lovenox. 13. Weakness: severe due to prolonged severe illness. OT/PT. rehab soon. History of Present Illness History of Present Illness decreasing urinary frequency. no focal c/o Vitals Vitals Vital Signs Date Time Temp Pulse Resp B/P (MAP) Pulse Ox O2 Delivery O2 Flow Rate FiO2 05/24/17 08:14 94 Room Air 05/24/17 07:00 98.0 79 20 96/58 (71) 98.0 05/23/17 08:00 2.0 Physical Exam General: Alert, Oriented X3, Cooperative, No acute distress, mild distress Heart: Regular rate Lungs: Clear Abdomen: Normal bowel sounds, Soft, Other (obese, anacerca) Extremities: Other (1+ edema) Skin: No rashes, Other (jaundiced) Labs LABS Laboratory Tests Test 05/23/17 21:45 05/24/17 03:50 White Blood Count 13.0 x10^3/uL (4.0-11.0) 13.2 x10^3/uL (4.0-11.0) Red Blood Count 3.21 x10^6/uL (4.30-5.70) 3.06 x10^6/uL (4.30-5.70) Hemoglobin 10.1 g/dL (13.0-17.5) 9.8 g/dL (13.0-17.5) Hematocrit 30.3 % (39.0-53.0) 28.9 % (39.0-53.0) Mean Corpuscular Volume 94 fL (79-100) 94 fL (79-100) Mean Corpuscular Hemoglobin 32 pg (25-35) 32 pg (25-35) Mean Corpuscular Hemoglobin Concent 33 g/dL (31-37) 34 g/dL (31-37) Red Cell Distribution Width 15.4 % (11.5-14.5) 15.7 % (11.5-14.5) Platelet Count 249 x10^3/uL (140-400) 260 x10^3/uL (140-400) Neutrophils (%) (Auto) 84 % (31-73) 85 % (31-73) Lymphocytes (%) (Auto) 5 % (24-48) 5 % (24-48) Monocytes (%) (Auto) 10 % (0-9) 9 % (0-9) Eosinophils (%) (Auto) 0 % (0-3) 1 % (0-3) Basophils (%) (Auto) 1 % (0-3) 0 % (0-3) Neutrophils # (Auto) 11.0 x10^3uL (1.8-7.7) 11.2 x10^3uL (1.8-7.7) Lymphocytes # (Auto) 0.6 x10^3/uL (1.0-4.8) 0.6 x10^3/uL (1.0-4.8) Monocytes # (Auto) 1.3 x10^3/uL (0.0-1.1) 1.2 x10^3/uL (0.0-1.1) Eosinophils # (Auto) 0.0 x10^3/uL (0.0-0.7) 0.1 x10^3/uL (0.0-0.7) Basophils # (Auto) 0.1 x10^3/uL (0.0-0.2) 0.0 x10^3/uL (0.0-0.2) Sodium Level 137 mmol/L (136-145) Potassium Level 3.5 mmol/L (3.5-5.1) Chloride Level 104 mmol/L (98-107) Carbon Dioxide Level 23 mmol/L (21-32) Anion Gap 10 (6-14) Blood Urea Nitrogen 17 mg/dL (8-26) Creatinine 1.4 mg/dL (0.7-1.3) Estimated GFR (Cockcroft-Gault) 49.4 BUN/Creatinine Ratio 12 (6-20) Glucose Level 88 mg/dL (70-99) Calcium Level 7.8 mg/dL (8.5-10.1) Total Bilirubin 12.2 mg/dL (0.2-1.0) Aspartate Amino Transf (AST/SGOT) 130 U/L (15-37) Alanine Aminotransferase (ALT/SGPT) 56 U/L (16-63) Alkaline Phosphatase 359 U/L (46-116) Total Protein 5.8 g/dL (6.4-8.2) Albumin 1.4 g/dL (3.4-5.0) Albumin/Globulin Ratio 0.3 (1.0-1.7) Assessment and Plan Assessmemt and Plan Problems Medical Problems: (1) Jaundice Status: Acute (2) Liver failure Status: Acute Chief Complaint Chief Complaint Jaundice ASSESSMENT AND PLAN: 1. Choledocholithiasis: s/p ERCP 05/10 with CBD stone removal and stent placement. Of note, prior biliary obstruction with stones, s/p cholecystectomy and sphincterectomy 08/2015 2. post ERCP pancreatitis: resolved 3. obstructive hepatitis: very slow improvement in LFTs, eileen bili. labs seem to be plateauing. d/c.ed TPN, which may contribute. GI following: hx liver biopsy showing chronic stasis, possible PSC; plans for Ursodiol later 4. Hypoalbuminemia: acute inflammation, liver dz, poss malnutrition as well. protein supplements 5. 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 CAD: no sx. no CHF by echo 7. HTN: well controlled 8. Fluid overload: 2/2 copious IVF during admission, very low albumin. increase home lasix, give IV; monitor BMP closely 9. PNA: ?aspir. completed levaquin x10d, stopped. wean O2, nebs 9. Dry nose: prob 2/2 NC O2. saline nasal spray 10. Urinary frequency: no other sx. UA neg for infection. suspect 2/2 BPH. started flomax 05/19 11. OA: cont home regimen 12. Prophylaxis: PPI, lovenox. 13. Weakness: severe due to prolonged severe illness. OT/PT. rehab soon. d/ w SW History of Present Illness History of Present Illness decreasing urinary frequency. no focal c/o Vitals Vitals Vital Signs Date Time Temp Pulse Resp B/P (MAP) Pulse Ox O2 Delivery O2 Flow Rate FiO2 05/23/17 15:50 Room Air 05/23/17 11:00 97.8 85 20 93/59 (70) 94 97.8 05/23/17 08:00 2.0 Physical Exam General: Alert, Oriented X3, Cooperative, No acute distress Heart: Regular rate Lungs: Clear Abdomen: Normal bowel sounds, Soft, Other (obese, anacerca) Extremities: Other (1+ edema) Skin: No rashes, Other (jaundiced) Problems: Comment Review of Relevant I have reviewed the following items jadon (where applicable) has been applied. Labs Laboratory Tests Test 05/23/17 06:40 05/23/17 21:45 05/24/17 03:50 White Blood Count 13.5 x10^3/uL (4.0-11.0) 13.0 x10^3/uL (4.0-11.0) 13.2 x10^3/uL (4.0-11.0) Red Blood Count 3.20 x10^6/uL (4.30-5.70) 3.21 x10^6/uL (4.30-5.70) 3.06 x10^6/uL (4.30-5.70) Hemoglobin 10.1 g/dL (13.0-17.5) 10.1 g/dL (13.0-17.5) 9.8 g/dL (13.0-17.5) Hematocrit 30.3 % (39.0-53.0) 30.3 % (39.0-53.0) 28.9 % (39.0-53.0) Mean Corpuscular Volume 95 fL (79-100) 94 fL (79-100) 94 fL (79-100) Mean Corpuscular Hemoglobin 32 pg (25-35) 32 pg (25-35) 32 pg (25-35) Mean Corpuscular Hemoglobin Concent 34 g/dL (31-37) 33 g/dL (31-37) 34 g/dL (31-37) Red Cell Distribution Width 15.5 % (11.5-14.5) 15.4 % (11.5-14.5) 15.7 % (11.5-14.5) Platelet Count 182 x10^3/uL (140-400) 249 x10^3/uL (140-400) 260 x10^3/uL (140-400) Neutrophils (%) (Auto) 87 % (31-73) 84 % (31-73) 85 % (31-73) Lymphocytes (%) (Auto) 3 % (24-48) 5 % (24-48) 5 % (24-48) Monocytes (%) (Auto) 9 % (0-9) 10 % (0-9) 9 % (0-9) Eosinophils (%) (Auto) 0 % (0-3) 0 % (0-3) 1 % (0-3) Basophils (%) (Auto) 0 % (0-3) 1 % (0-3) 0 % (0-3) Neutrophils # (Auto) 11.7 x10^3uL (1.8-7.7) 11.0 x10^3uL (1.8-7.7) 11.2 x10^3uL (1.8-7.7) Lymphocytes # (Auto) 0.5 x10^3/uL (1.0-4.8) 0.6 x10^3/uL (1.0-4.8) 0.6 x10^3/uL (1.0-4.8) Monocytes # (Auto) 1.3 x10^3/uL (0.0-1.1) 1.3 x10^3/uL (0.0-1.1) 1.2 x10^3/uL (0.0-1.1) Eosinophils # (Auto) 0.1 x10^3/uL (0.0-0.7) 0.0 x10^3/uL (0.0-0.7) 0.1 x10^3/uL (0.0-0.7) Basophils # (Auto) 0.0 x10^3/uL (0.0-0.2) 0.1 x10^3/uL (0.0-0.2) 0.0 x10^3/uL (0.0-0.2) Sodium Level 134 mmol/L (136-145) 137 mmol/L (136-145) Potassium Level 3.9 mmol/L (3.5-5.1) 3.5 mmol/L (3.5-5.1) Chloride Level 104 mmol/L (98-107) 104 mmol/L (98-107) Carbon Dioxide Level 22 mmol/L (21-32) 23 mmol/L (21-32) Anion Gap 8 (6-14) 10 (6-14) Blood Urea Nitrogen 17 mg/dL (8-26) 17 mg/dL (8-26) Creatinine 1.3 mg/dL (0.7-1.3) 1.4 mg/dL (0.7-1.3) Estimated GFR (Cockcroft-Gault) 53.8 49.4 BUN/Creatinine Ratio 13 (6-20) 12 (6-20) Glucose Level 94 mg/dL (70-99) 88 mg/dL (70-99) Calcium Level 7.9 mg/dL (8.5-10.1) 7.8 mg/dL (8.5-10.1) Total Bilirubin 11.8 mg/dL (0.2-1.0) 12.2 mg/dL (0.2-1.0) Aspartate Amino Transf (AST/SGOT) 124 U/L (15-37) 130 U/L (15-37) Alanine Aminotransferase (ALT/SGPT) 55 U/L (16-63) 56 U/L (16-63) Alkaline Phosphatase 355 U/L (46-116) 359 U/L (46-116) Total Protein 5.4 g/dL (6.4-8.2) 5.8 g/dL (6.4-8.2) Albumin 1.3 g/dL (3.4-5.0) 1.4 g/dL (3.4-5.0) Albumin/Globulin Ratio 0.3 (1.0-1.7) 0.3 (1.0-1.7) Laboratory Tests Test 05/23/17 21:45 05/24/17 03:50 White Blood Count 13.0 x10^3/uL (4.0-11.0) 13.2 x10^3/uL (4.0-11.0) Red Blood Count 3.21 x10^6/uL (4.30-5.70) 3.06 x10^6/uL (4.30-5.70) Hemoglobin 10.1 g/dL (13.0-17.5) 9.8 g/dL (13.0-17.5) Hematocrit 30.3 % (39.0-53.0) 28.9 % (39.0-53.0) Mean Corpuscular Volume 94 fL (79-100) 94 fL (79-100) Mean Corpuscular Hemoglobin 32 pg (25-35) 32 pg (25-35) Mean Corpuscular Hemoglobin Concent 33 g/dL (31-37) 34 g/dL (31-37) Red Cell Distribution Width 15.4 % (11.5-14.5) 15.7 % (11.5-14.5) Platelet Count 249 x10^3/uL (140-400) 260 x10^3/uL (140-400) Neutrophils (%) (Auto) 84 % (31-73) 85 % (31-73) Lymphocytes (%) (Auto) 5 % (24-48) 5 % (24-48) Monocytes (%) (Auto) 10 % (0-9) 9 % (0-9) Eosinophils (%) (Auto) 0 % (0-3) 1 % (0-3) Basophils (%) (Auto) 1 % (0-3) 0 % (0-3) Neutrophils # (Auto) 11.0 x10^3uL (1.8-7.7) 11.2 x10^3uL (1.8-7.7) Lymphocytes # (Auto) 0.6 x10^3/uL (1.0-4.8) 0.6 x10^3/uL (1.0-4.8) Monocytes # (Auto) 1.3 x10^3/uL (0.0-1.1) 1.2 x10^3/uL (0.0-1.1) Eosinophils # (Auto) 0.0 x10^3/uL (0.0-0.7) 0.1 x10^3/uL (0.0-0.7) Basophils # (Auto) 0.1 x10^3/uL (0.0-0.2) 0.0 x10^3/uL (0.0-0.2) Sodium Level 137 mmol/L (136-145) Potassium Level 3.5 mmol/L (3.5-5.1) Chloride Level 104 mmol/L (98-107) Carbon Dioxide Level 23 mmol/L (21-32) Anion Gap 10 (6-14) Blood Urea Nitrogen 17 mg/dL (8-26) Creatinine 1.4 mg/dL (0.7-1.3) Estimated GFR (Cockcroft-Gault) 49.4 BUN/Creatinine Ratio 12 (6-20) Glucose Level 88 mg/dL (70-99) Calcium Level 7.8 mg/dL (8.5-10.1) Total Bilirubin 12.2 mg/dL (0.2-1.0) Aspartate Amino Transf (AST/SGOT) 130 U/L (15-37) Alanine Aminotransferase (ALT/SGPT) 56 U/L (16-63) Alkaline Phosphatase 359 U/L (46-116) Total Protein 5.8 g/dL (6.4-8.2) Albumin 1.4 g/dL (3.4-5.0) Albumin/Globulin Ratio 0.3 (1.0-1.7) Microbiology 05/09/17 Blood Culture - Final, Complete NO GROWTH AFTER 5 DAYS 05/19/17 Urine Culture - Final, Complete 05/19/17 Urine Culture Result 1 (CHELE) - Final, Complete Medications Current Medications Docusate Sodium (Colace) 100 mg BID PO Last administered on 05/23/17t 08:13; Start 05/09/17 at 21:00 Acetaminophen/ Hydrocodone Bitart (Lortab 5/325) 1 tab PRN Q6HRS PRN PO PAIN; Start 05/09/17 at 14:15; Status Cancel Pantoprazole Sodium (Protonix) 40 mg DAILYAC PO ; Start 05/09/17 at 14:30; Stop 05/11/17 at 07:46; Status DC Diphenhydramine HCl (Benadryl) 25 mg PRN QHS PRN PO INSOMNIA Last administered on 05/14/17 22:07; Start 05/09/17 at 14:15 Acetaminophen/ Hydrocodone Bitart (Lortab 5/325) 1 tab PRN Q4HRS PRN PO MODERATE - SEVERE PAIN Last administered on 05/15/17 22:41; Start 05/09/17 at 14:15 Ondansetron HCl (Zofran) 4 mg PRN Q6HRS PRN IV NAUSEA/VOMITING; Start 05/09/17 at 14:15; Stop 05/10/17 at 16:18; Status DC Levofloxacin/ Dextrose 100 ml @ 100 mls/hr Q24H IV Last administered on 16:45; Start 05/09/17 at 16:00; Stop 05/10/17 at 10:51; Status DC Acetaminophen (Tylenol) 650 mg PRN Q6HRS PRN PO FEVER; Start 05/10/17 at 12:45 Ondansetron HCl (Zofran) 4 mg PRN Q6HRS PRN IV NAUSEA/VOMITING; Start 05/10/17 at 12:45 Morphine Sulfate 2 mg PRN Q2HR PRN IV PAIN Last administered on 05/16/17 23: 57; Start 05/10/17 at 12:45; Stop 05/18/17 at 17:46; Status DC Tramadol HCl (Ultram) 50 mg PRN Q6HRS PRN PO MILD PAIN Last administered on 13:22; Start 05/10/17 at 12:45 Hydralazine HCl (Apresoline Inj) 10 mg PRN Q4HRS PRN IVP ELEVATED BP, SEE COMMENTS; Start 05/10/17 at 12:45 Docusate Sodium (Colace) 100 mg PRN DAILY PRN PO CONSTIPATION; Start 05/10/17 at 12:45; Stop 05/18/17 at 17:46; Status DC Enoxaparin Sodium (Lovenox 40mg Syringe) 40 mg Q24H SQ Last administered on 13:25; Start 05/10/17 at 13:00 Iohexol (Omnipaque 300 Mg/ml) 100 ml STK-MED ONCE .ROUTE ; Start 05/10/17 at 14: 43; Stop 05/10/17 at 14:44; Status DC Ringer's Solution 1,000 ml @ 75 mls/hr 1X ONCE IV Last administered on 16:05; Start 05/10/17 at 16:15; Stop 05/11/17 at 05:34; Status DC Propofol 20 ml @ As Directed STK-MED ONCE IV ; Start 05/10/17 at 16:39; Stop at 16:40; Status DC Succinylcholine Chloride (Anectine) 200 mg STK-MED ONCE .ROUTE ; Start 05/10/17 at 16:39; Stop 05/10/17 at 16:40; Status DC Lidocaine HCl (Lidocaine Pf 2% Vial) 5 ml STK-MED ONCE .ROUTE ; Start 05/10/17 at 16:39; Stop 05/10/17 at 16:40; Status DC Phenylephrine HCl (Jeffrey-Synephrine Inj) 10 mg STK-MED ONCE .ROUTE ; Start at 16:41; Stop 05/10/17 at 16:42; Status DC Levofloxacin/ Dextrose 100 ml @ As Directed STK-MED ONCE IV ; Start 05/10/17 at 17:44; Stop 05/10/17 at 17:45; Status DC Lidocaine HCl (Lidocaine Pf 2% Vial) 5 ml STK-MED ONCE .ROUTE ; Start 05/10/17 at 18:57; Stop 05/10/17 at 18:58; Status DC Iohexol (Omnipaque 300 Mg/ml) 100 ml STK-MED ONCE INT CAT Last administered on 05/10/17 18:58; Start 05/10/17 at 18:58; Stop 05/10/17 at 19:00; Status DC Levofloxacin/ Dextrose 100 ml @ 100 mls/hr Q24H IV Last administered on 09:20; Start 05/11/17 at 08:00; Stop 05/12/17 at 19:03; Status DC Simethicone (Gas-X) 80 mg PRN AFTMEALHC PRN PO GAS / BLOATING Last administered on 05/20/17 20:47; Start 05/11/17 at 02:45 Morphine Sulfate 4 mg PRN Q2HR PRN IV SEVERE PAIN Last administered on 19:41; Start 05/11/17 at 06:15; Stop 05/16/17 at 21:36; Status DC Ketorolac Tromethamine (Toradol) 30 mg 1X ONCE IV Last administered on 07:57; Start 05/11/17 at 08:00; Stop 05/11/17 at 08:01; Status DC Sodium Chloride 1,000 ml @ 50 mls/hr Q20H IV Last administered on 05/15/17 13:42; Start 05/11/17 at 08:00; Stop 05/15/17 at 19:32; Status DC Pantoprazole Sodium (Protonix Vial) 40 mg DAILYAC IVP Last administered on 09:01; Start 05/11/17 at 08:00; Stop 05/15/17 at 19:15; Status DC Amino Acids/ Glycerin/ Electrolytes 1,000 ml @ 80 mls/hr [id number] IV Last administered on 05/18/17 11:29; Start 05/11/17 at 12:00; Stop 05/18/17 at 17: 46; Status DC Ketorolac Tromethamine (Toradol) 30 mg PRN Q6HRS PRN IV PAIN Last administered on 05/12/17 03:11; Start 05/11/17 at 12:00; Stop 05/15/17 at 10:00; Status DC Levofloxacin/ Dextrose 100 ml @ 100 mls/hr Q24H IV ; Start 05/11/17 at 18:00; Status Cancel Albuterol Sulfate (Ventolin Neb Soln) 2.5 mg PRN Q4HRS PRN NEB SHORTNESS OF BREATH Last administered on 05/18/17 09:21; Start 05/12/17 at 14:30 Levofloxacin (Levaquin) 500 mg DAILY PO Last administered on 05/21/17 08:13; Start 05/13/17 at 09:00; Stop 05/21/17 at 17:49; Status DC Lactobacillus Rhamnosus (Culturelle) 1 cap BID PO Last administered on 21:20; Start 05/12/17 at 21:00 Pneumococcal Polyvalent Vaccine (Do NOT chart on this placeholder) 1 each PRN DAILY PRN MC LAST DATE UNKNOWN; Start 05/14/17 at 03:30; Status Cancel Pneumococcal Polyvalent Vaccine (Pneumovax 23) 0.5 ml ONCE ONCE VAX IM ; Start 05/16/17 at 09:00; Stop 05/16/17 at 09:01; Status DC Furosemide (Lasix) 20 mg DAILY PO Last administered on 05/22/17 08:51; Start 05/15/17 at 17:45; Stop 05/22/17 at 17:47; Status DC Pantoprazole Sodium (Protonix) 40 mg DAILYAC PO Last administered on 08:12; Start 05/16/17 at 07:30 Polyethylene Glycol (miraLAX PACKET) 17 gm PRN BID PRN PO CONSTIPATION Last administered on 05/15/17 22:41; Start 05/15/17 at 19:30 Furosemide (Lasix) 20 mg 1X ONCE IVP Last administered on 05/15/17 22:42; Start 05/15/17 at 19:30; Stop 05/15/17 at 19:34; Status DC Iohexol (Omnipaque 300 Mg/ml) 30 ml 1X ONCE PO ; Start 05/16/17 at 09:30; Stop 05/16/17 at 09:32; Status DC Iohexol (Omnipaque 240 Mg/ml) 75 ml 1X ONCE IV ; Start 05/16/17 at 09:30; Stop 05/16/17 at 09:32; Status DC Info (Do NOT chart on this entry -- for MONITORING) 1 each PRN DAILY PRN MC SEE COMMENTS; Start 05/16/17 at 09:45; Stop 05/18/17 at 09:44; Status DC Iohexol (Omnipaque 300 Mg/ml) 75 ml 1X ONCE IV ; Start 05/16/17 at 09:45; Stop 05/16/17 at 09:48; Status DC Info (Do NOT chart on this entry -- for MONITORING) 1 each PRN DAILY PRN MC SEE COMMENTS; Start 05/16/17 at 10:00; Stop 05/18/17 at 09:59; Status DC Albuterol/ Ipratropium (Duoneb) 3 ml RTQID NEB Last administered on 05/24/17 08:12; Start 05/17/17 at 08:00 Info 1 each PRN DAILY PRN MC SEE COMMENTS Last administered on 05/21/17 12:57 ; Start 05/17/17 at 23:15; Stop 05/21/17 at 17:47; Status DC Sodium Chloride 90 meq/Potassium Chloride 50 meq/ Potassium Phosphate 13.6 mmol/ Magnesium Sulfate 10 meq/ Calcium Gluconate 10 meq/ Multivitamins 10 ml/Chromium / Copper/Manganese/ Seleni/Zn 1 ml/ Total Parenteral Nutrition/Amino Acids/ Dextrose/ Fat Emulsion Intravenous 1,512 ml @ 63 mls/hr TPN CONT IV ; Start 05/18/17 at 22:00; Stop 05/18/17 at 22:00; Status DC Sodium Chloride 90 meq/Potassium Chloride 50 meq/ Potassium Phosphate 13.6 mmol/ Magnesium Sulfate 10 meq/ Calcium Gluconate 10 meq/ Multivitamins 10 ml/Chromium / Copper/Manganese/ Seleni/Zn 1 ml/ Total Parenteral Nutrition/Amino Acids/ Dextrose/ Fat Emulsion Intravenous 1,512 ml @ 63 mls/hr TPN CONT IV Last administered on 05/18/17 22:26; Start 05/18/17 at 22:00; Stop 05/19/17 at 21 :59; Status DC Sodium Chloride 90 meq/Potassium Chloride 50 meq/ Potassium Phosphate 13.6 mmol/ Magnesium Sulfate 10 meq/ Calcium Gluconate 10 meq/ Multivitamins 10 ml/Chromium / Copper/Manganese/ Seleni/Zn 1 ml/ Total Parenteral Nutrition/Amino Acids/ Dextrose/ Fat Emulsion Intravenous 1,512 ml @ 63 mls/hr TPN CONT IV Last administered on 05/19/17 22:00; Start 05/19/17 at 22:00; Stop 05/20/17 at 21 :59; Status DC Tamsulosin HCl (Flomax) 0.4 mg QHS PO Last administered on 05/23/17 21:20; Start 05/19/17 at 21:00 Sodium Chloride 90 meq/Potassium Chloride 50 meq/ Potassium Phosphate 13.6 mmol/ Magnesium Sulfate 10 meq/ Calcium Gluconate 10 meq/ Multivitamins 10 ml/Chromium / Copper/Manganese/ Seleni/Zn 1 ml/ Total Parenteral Nutrition/Amino Acids/ Dextrose/ Fat Emulsion Intravenous 1,512 ml @ 63 mls/hr TPN CONT IV Last administered on 05/20/17 22:49; Start 05/20/17 at 22:00; Stop 05/21/17 at 17 :42; Status DC Sodium Chloride (Saline Mist Nasal) 1 federico PRN Q1HR PRN NS NASAL CONGESTION Last administered on 05/21/17 14:52; Start 05/20/17 at 17:45 Sodium Chloride 90 meq/Potassium Chloride 50 meq/ Potassium Phosphate 13.6 mmol/ Magnesium Sulfate 10 meq/ Calcium Gluconate 5 meq/ Multivitamins 10 ml/Chromium / Copper/Manganese/ Seleni/Zn 1 ml/ Total Parenteral Nutrition/Amino Acids/ Dextrose/ Fat Emulsion Intravenous 1,512 ml @ 63 mls/hr TPN CONT IV ; Start 05/21/17 at 22:00; Stop 05/21/17 at 22:00; Status DC Dextrose/Sodium Chloride 1,000 ml @ 50 mls/hr Q20H IV Last administered on 03:35; Start 05/21/17 at 17:45 Furosemide (Lasix) 40 mg DAILY IVP Last administered on 05/23/17 08:11; Start 05/23/17 at 09:00 Active Scripts Active Pantoprazole Sodium 40 Mg Tablet.dr 40 Mg PO DAILYAC Reported Divalproex Sodium 500 Mg Tablet.dr 500 Mg PO BID Citalopram Hbr (Citalopram Hydrobromide) 20 Mg Tablet 20 Mg PO DAILY Vitamin D3 (Cholecalciferol (Vitamin D3)) 5,000 Unit Tablet 5,000 Unit PO WEEKLY Vitamin D3 (Cholecalciferol (Vitamin D3)) 5,000 Unit Tablet 5,000 Unit PO DAILY Thera-M (Multivits, W-Fe,Other Min) 1 Each Tablet 1 Each PO DAILY Senna (Sennosides) 8.6 Mg Tablet 8.6 Mg PO DAILY Risperidone 0.5 Mg Tablet 0.25 Mg PO BID Tradjenta (Linagliptin) 5 Mg Tablet 5 Mg PO DAILY Olanzapine 5 Mg Tablet 2.5 Mg PO PRN Q2HRS PRN Potassium Chloride 10 Meq Tablet.er 10 Meq PO DAILY Mirtazapine 15 Mg Tablet 15 Mg PO QHS Gabapentin 100 Mg Capsule 200 Mg PO TID Omeprazole 20 Mg Capsule.dr 20 Mg PO PRN Sulfamethoxazole-Tmp Ds Tablet (Sulfamethoxazole/Trimethoprim) 1 Each Tablet 1 Tab PO BID [facility] Rx Capsule (Lactobacillus Casei/Folic Acid) 1 Each Capsule 1 Each PO HS Hydrocodone-Apap 5-325 (Hydrocodone Bit/Acetaminophen) 1 Each Tablet 1-2 Tab PO PRN Q6HRS PRN LAST DOSE GIVEN: DATE: TIME: Colace (Docusate Sodium) 100 Mg Capsule 1 Cap PO BID Vitals/I & O Vital Sign - Last 24 Hours 05/23/17 05/23/17 05/23/17 05/23/17 11:00 11:47 15:00 15:50 Temp 97.8 98.0 97.8 98.0 Pulse 85 94 Resp 20 20 B/P (MAP) 93/59 (70) 97/51 (66) Pulse Ox 94 94 O2 Delivery Room Air Room Air Room Air Room Air 05/23/17 05/23/17 05/23/17 05/23/17 19:20 20:00 20:23 23:20 Temp 98.2 98.6 98.2 98.6 Pulse 89 86 Resp 20 18 B/P (MAP) 99/63 (75) 103/63 (76) Pulse Ox 95 94 95 O2 Delivery Room Air Room Air Room Air Room Air 05/24/17 05/24/17 05/24/17 03:20 07:00 08:14 Temp 98.1 98.0 98.1 98.0 Pulse 93 79 Resp 18 20 B/P (MAP) 105/66 (79) 96/58 (71) Pulse Ox 93 95 94 O2 Delivery Room Air Room Air Room Air Intake and Output 05/23/17 05/23/17 05/24/17 15:00 23:00 07:00 Intake Total 500 ml 50 ml Output Total 900 ml 650 ml Balance -400 ml -600 ml Nutrition Consultation Dietary Evaluation: Recommendations by RD: PPN/TPN Comments: REC Low Sodium diet Expected Outcomes/Goals: diet adv/ tolerance - met, pt on gi soft diet ~ 75% lunch today new goal: to meet > 75% est nutrition needs via po intake & nutrition support- met new goal: to meet > 75% est nutr needs via po intake Interpretation of weight loss: >1-2% in 1 week Malnutrition Findings: Food and Nutrition Intake (Sev: <50% est energy req 5days Weight Status: Overweight BERNARD GRACE MD 22, 2017 10:44
[2017-05-24] MEDS: FUROSEMIDE 40 MG/4 ML VIAL. IVP SCH (10:51)
--- NOTE | 2017-05-24 10:53 | PDOC ---
Infectious Disease Note Subjective Subjective feeling ok ROS ROS GEN: Denies fevers, chills, sweats HEENT: Denies blurred vision, sore throat CV: Denies chest pain RESP: Denies shortness of air, cough GI: Denies n/v/d NEURO: Denies confusion, dizziness MSK: Denies weakness, joint pain/swelling Vital Sign Vital Signs Vital Signs Date Time Temp Pulse Resp B/P (MAP) Pulse Ox O2 Delivery O2 Flow Rate FiO2 05/24/17 08:14 94 Room Air 05/24/17 07:00 98.0 79 20 96/58 (71) 98.0 05/23/17 08:00 2.0 Physical Exam PHYSICAL EXAM GENERAL: NAD, Alert HEENT: PERRL, OC/OP NECK: Supple, no JVD, no LN LUNGS: Clear HEART: S1S2, no gallop, no murmur ABD: Soft, NT, no organomegaly, no rebound EXT: No edema, no cyanosis 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, oriented x 3, no focal neurologic deficit SKIN: No rash IV: ok Labs Lab Laboratory Tests Test 05/23/17 21:45 05/24/17 03:50 White Blood Count 13.0 x10^3/uL (4.0-11.0) 13.2 x10^3/uL (4.0-11.0) Red Blood Count 3.21 x10^6/uL (4.30-5.70) 3.06 x10^6/uL (4.30-5.70) Hemoglobin 10.1 g/dL (13.0-17.5) 9.8 g/dL (13.0-17.5) Hematocrit 30.3 % (39.0-53.0) 28.9 % (39.0-53.0) Mean Corpuscular Volume 94 fL (79-100) 94 fL (79-100) Mean Corpuscular Hemoglobin 32 pg (25-35) 32 pg (25-35) Mean Corpuscular Hemoglobin Concent 33 g/dL (31-37) 34 g/dL (31-37) Red Cell Distribution Width 15.4 % (11.5-14.5) 15.7 % (11.5-14.5) Platelet Count 249 x10^3/uL (140-400) 260 x10^3/uL (140-400) Neutrophils (%) (Auto) 84 % (31-73) 85 % (31-73) Lymphocytes (%) (Auto) 5 % (24-48) 5 % (24-48) Monocytes (%) (Auto) 10 % (0-9) 9 % (0-9) Eosinophils (%) (Auto) 0 % (0-3) 1 % (0-3) Basophils (%) (Auto) 1 % (0-3) 0 % (0-3) Neutrophils # (Auto) 11.0 x10^3uL (1.8-7.7) 11.2 x10^3uL (1.8-7.7) Lymphocytes # (Auto) 0.6 x10^3/uL (1.0-4.8) 0.6 x10^3/uL (1.0-4.8) Monocytes # (Auto) 1.3 x10^3/uL (0.0-1.1) 1.2 x10^3/uL (0.0-1.1) Eosinophils # (Auto) 0.0 x10^3/uL (0.0-0.7) 0.1 x10^3/uL (0.0-0.7) Basophils # (Auto) 0.1 x10^3/uL (0.0-0.2) 0.0 x10^3/uL (0.0-0.2) Sodium Level 137 mmol/L (136-145) Potassium Level 3.5 mmol/L (3.5-5.1) Chloride Level 104 mmol/L (98-107) Carbon Dioxide Level 23 mmol/L (21-32) Anion Gap 10 (6-14) Blood Urea Nitrogen 17 mg/dL (8-26) Creatinine 1.4 mg/dL (0.7-1.3) Estimated GFR (Cockcroft-Gault) 49.4 BUN/Creatinine Ratio 12 (6-20) Glucose Level 88 mg/dL (70-99) Calcium Level 7.8 mg/dL (8.5-10.1) Total Bilirubin 12.2 mg/dL (0.2-1.0) Aspartate Amino Transf (AST/SGOT) 130 U/L (15-37) Alanine Aminotransferase (ALT/SGPT) 56 U/L (16-63) Alkaline Phosphatase 359 U/L (46-116) Total Protein 5.8 g/dL (6.4-8.2) Albumin 1.4 g/dL (3.4-5.0) Albumin/Globulin Ratio 0.3 (1.0-1.7) Objective Assessment Weakness some better. Nml Thyroid Choledocholithiasis and recurrent jaundice. s/p ERCP 05/10 with stone removal Leucocytosis - ? reactive and concentration- on Levofloxacin per GI 05/13, trending down Postprocedure pancreatitis improving slowly, Lipase > 23,000 now down to 320 LLL atelectasis or infiltrate and suspected small left pleural effusion. Mild elevation of procalcitonin but can be elevated with intra-abdominal processes and Renal insuff Weight loss. Malaise and fatigue. History of Serratia marcescens bacteremia in 12/2016, treated. Status post appendectomy and liver biopsy, 02/01/2017 History of diverticulosis on recent colonoscopy. Status post cholecystectomy, ERCP x 2 with sphincterotomy. GERD. Hypertension. DJD, chronic, stable. Plan Plan of Care Cont Levaquin (05/13) probiotics F/u labs stent removal today sputum with tubular long structure, will sent to pathology MARILIN MOLINA MD May 24, 2017 10:53
[2017-05-24 11:00] VITALS: BP 96/54
[2017-05-24] MEDS ORDERED: POTASSIUM CHLORIDE 20MEQ 50 ML IV ONE (11:30)
[2017-05-24] MEDS: ENOXAPARIN 40 MG/0.4 ML SYRINGE. SQ SCH (13:00)
[2017-05-24] MEDS ORDERED: PROPOFOL 20 ML IV ONE ×2 (13:41→14:04)
--- NOTE | 2017-05-24 14:17 | PDOC4 ---
Operative Note Operative Note EGD with stent removal Meds propofol per anesthesia Pre-op dx jaundice/retained stent post-op dx occluded biliary stent s/p removal non-erosive gastritis Plan advance diet serial LFTS JAZZMINE ARAUZ MD May 24, 2017 14:17
[2017-05-24 15:00] VITALS: BP 101/64
[2017-05-24 19:46] VITALS: BP 102/59
[2017-05-24] MEDS: TAMSULOSIN 0.4 MG CAP.ER.24H. PO SCH (21:43)
[2017-05-24 23:40] VITALS: BP 96/56
[2017-05-25 03:36] VITALS: BP 92/55
[2017-05-25] MEDS: IV DEXTROSE 5% - 0.9 % NACL 1,000 ML IV SCH ×2 (05:21→20:27)
[2017-05-25 05:36] LABS: BASO % 0 % (0-3); EOS % 1 % (0-3); HEMATOCRIT 31.8 % (39.0-53.0); HEMOGLOBIN 10.8 g/dL (13.0-17.5); LYMPH # 0.5 x10^3/uL (1.0-4.8); LYMPH % 4 % (24-48); MEAN CORPUSCULAR HEMOGLOBIN 32 pg (25-35); MEAN CORPUSCULAR HGB CONC 34 g/dL (31-37); MEAN CORPUSCULAR VOLUME 95 fL (79-100); MONO % 9 % (0-9); NEUT % 86 % (31-73); PLATELET COUNT 261 x10^3/uL (140-400); RED BLOOD COUNT 3.36 x10^6/uL (4.30-5.70); RED CELL DISTRIBUTION WIDTH 15.5 % (11.5-14.5); WHITE BLOOD COUNT 12.5 x10^3/uL (4.0-11.0)
[2017-05-25 05:55] LABS: ALBUMIN 1.4 g/dL (3.4-5.0); ALBUMIN/GLOBULIN RATIO 0.3 (1.0-1.7); CALCIUM 8.2 mg/dL (8.5-10.1); CREATININE 1.2 mg/dL (0.7-1.3); POTASSIUM 3.4 mmol/L (3.5-5.1); TOTAL BILIRUBIN 13.1 mg/dL (0.2-1.0); TOTAL PROTEIN 6.2 g/dL (6.4-8.2)
[2017-05-25] MEDS ORDERED: LIDOCAINE 1% PF 2 ML VIAL. ID PRN (07:00)
[2017-05-25] MEDS ORDERED: HYDROmorphone 2 MG/ML VIAL IV PRN (07:00)
[2017-05-25] MEDS ORDERED: IV RINGERS,LACTATED 1000ML 1,000 ML IV SCH (07:00)
[2017-05-25] MEDS ORDERED: MORPHINE SULFATE 2 MG/ML DISP.SYRIN. IV PRN (07:00)
[2017-05-25] MEDS ORDERED: PROCHLORPERAZINE 10 MG/2 ML VIAL. IV PRN (07:00)
[2017-05-25] MEDS ORDERED: fentaNYL PF VIAL 100 MCG/2 ML VIAL IV PRN ×2 (07:00)
[2017-05-25 07:15] VITALS: BP 95/52
[2017-05-25] MEDS: IPRATRPIUM/ALBUTEROL 0.5/2.5MG 3 ML NEBU. NEB SCH ×4 (07:37→19:54)
[2017-05-25] MEDS: DOCUSATE SODIUM 100 MG CAPSULE. PO SCH ×2 (08:09→20:27)
[2017-05-25] MEDS: FUROSEMIDE 40 MG/4 ML VIAL. IVP SCH (08:31)
[2017-05-25] MEDS: PANTOPRAZOLE 40 MG TABLET.DR. PO SCH (08:31)
[2017-05-25] MEDS: LACTOBACILLUS RHAMNOSUS GG 1 CAPSULE. PO SCH ×2 (08:31→20:20)
--- NOTE | 2017-05-25 08:37 | PDOC ---
Infectious Disease Note Subjective Subjective feeling ok ROS ROS GEN: Denies fevers, chills, sweats HEENT: Denies blurred vision, sore throat CV: Denies chest pain RESP: Denies shortness of air, cough GI: Denies n/v/d NEURO: Denies confusion, dizziness MSK: Denies weakness, joint pain/swelling Vital Sign Vital Signs Vital Signs Date Time Temp Pulse Resp B/P (MAP) Pulse Ox O2 Delivery O2 Flow Rate FiO2 05/25/17 07:37 95 Room Air 05/25/17 07:15 97.9 81 18 95/52 (66) 97.9 05/24/17 14:15 2.0 Physical Exam PHYSICAL EXAM GENERAL: NAD, Alert HEENT: PERRL, OC/OP NECK: Supple, no JVD, no LN LUNGS: Clear HEART: S1S2, no gallop, no murmur ABD: Soft, NT, no organomegaly, no rebound EXT: No edema, no cyanosis 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, oriented x 3, no focal neurologic deficit SKIN: No rash IV: ok Labs Lab Laboratory Tests Test 05/25/17 05:25 White Blood Count 12.5 x10^3/uL (4.0-11.0) Red Blood Count 3.36 x10^6/uL (4.30-5.70) Hemoglobin 10.8 g/dL (13.0-17.5) Hematocrit 31.8 % (39.0-53.0) Mean Corpuscular Volume 95 fL (79-100) Mean Corpuscular Hemoglobin 32 pg (25-35) Mean Corpuscular Hemoglobin Concent 34 g/dL (31-37) Red Cell Distribution Width 15.5 % (11.5-14.5) Platelet Count 261 x10^3/uL (140-400) Neutrophils (%) (Auto) 86 % (31-73) Lymphocytes (%) (Auto) 4 % (24-48) Monocytes (%) (Auto) 9 % (0-9) Eosinophils (%) (Auto) 1 % (0-3) Basophils (%) (Auto) 0 % (0-3) Neutrophils # (Auto) 10.7 x10^3uL (1.8-7.7) Lymphocytes # (Auto) 0.5 x10^3/uL (1.0-4.8) Monocytes # (Auto) 1.1 x10^3/uL (0.0-1.1) Eosinophils # (Auto) 0.1 x10^3/uL (0.0-0.7) Basophils # (Auto) 0.0 x10^3/uL (0.0-0.2) Sodium Level 137 mmol/L (136-145) Potassium Level 3.4 mmol/L (3.5-5.1) Chloride Level 103 mmol/L (98-107) Carbon Dioxide Level 24 mmol/L (21-32) Anion Gap 10 (6-14) Blood Urea Nitrogen 18 mg/dL (8-26) Creatinine 1.2 mg/dL (0.7-1.3) Estimated GFR (Cockcroft-Gault) 59.0 BUN/Creatinine Ratio 15 (6-20) Glucose Level 93 mg/dL (70-99) Calcium Level 8.2 mg/dL (8.5-10.1) Total Bilirubin 13.1 mg/dL (0.2-1.0) Aspartate Amino Transf (AST/SGOT) 142 U/L (15-37) Alanine Aminotransferase (ALT/SGPT) 56 U/L (16-63) Alkaline Phosphatase 366 U/L (46-116) Total Protein 6.2 g/dL (6.4-8.2) Albumin 1.4 g/dL (3.4-5.0) Albumin/Globulin Ratio 0.3 (1.0-1.7) Objective Assessment Weakness some better. Nml Thyroid Choledocholithiasis and recurrent jaundice. s/p ERCP 05/10 with stone removal Leucocytosis - ? reactive and concentration- on Levofloxacin per GI 05/13, trending down Postprocedure pancreatitis improving slowly, Lipase > 23,000 now down to 320 LLL atelectasis or infiltrate and suspected small left pleural effusion. Mild elevation of procalcitonin but can be elevated with intra-abdominal processes and Renal insuff Weight loss. Malaise and fatigue. History of Serratia marcescens bacteremia in 12/2016, treated. Status post appendectomy and liver biopsy, 02/01/2017 History of diverticulosis on recent colonoscopy. Status post cholecystectomy, ERCP x 2 with sphincterotomy. GERD. Hypertension. DJD, chronic, stable. Plan Plan of Care probiotics F/u labs stent removal done, sputum with tubular long structure, sent to pathology MARILIN MOLINA MD May 25, 2017 08:37
[2017-05-25] MEDS: HYDROcodone/APAP 5/325MG 1 TAB TABLET PO PRN (10:08)
[2017-05-25 10:09] LABS: % EOS 3 % (0-5); PLT ESTIMATE ADEQUATE (ADEQUATE); TOXIC GRANULATION MOD
[2017-05-25 10:10] LABS: ANISOCYTOSIS PRESENT
[2017-05-25 11:04] VITALS: BP 110/65
[2017-05-25] MEDS: ENOXAPARIN 40 MG/0.4 ML SYRINGE. SQ SCH (13:07)
[2017-05-25 14:41] VITALS: BP 101/65
--- NOTE | 2017-05-25 14:59 | PDOC ---
PROGRESS NOTES Chief Complaint Chief Complaint Jaundice ASSESSMENT AND PLAN: 1. Choledocholithiasis: s/p ERCP 05/10 with CBD stone removal and stent placement. removal of obstructed stent on 05/24. Of note, prior biliary obstruction with stones, s/p cholecystectomy and sphincterectomy 08/2015 2. post ERCP pancreatitis: resolved 3. obstructive hepatitis: very slow improvement in LFTs, eileen bili. labs seem to be plateauing. s/p EGD with occluded stent removal. no significant improvement by labs (yet) hx liver biopsy showing chronic stasis, possible PSC; plans for Ursodiol later 4. Hypoalbuminemia: acute inflammation, liver dz, poss malnutrition as well. protein supplements 5. 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 CAD: no sx. no CHF by echo 7. HTN: well controlled 8. Fluid overload: 2/2 copious IVF during admission, very low albumin. increase home lasix, give IV; I&O neg 1L/d, stable creat 9. PNA: ?aspir. completed levaquin x10d, stopped. wean O2, nebs 9. Dry nose: prob 2/2 NC O2. saline nasal spray 10. Urinary frequency: no other sx. UA neg for infection. suspect 2/2 BPH. continue flomax 11. OA: cont home regimen 12. Prophylaxis: PPI, lovenox. 13. Weakness: severe due to prolonged severe illness. OT/PT. rehab soon. History of Present Illness History of Present Illness feels better today, less abd distension, more energy Vitals Vitals Vital Signs Date Time Temp Pulse Resp B/P (MAP) Pulse Ox O2 Delivery O2 Flow Rate FiO2 05/25/17 14:41 97.4 89 20 101/65 (77) 95 Room Air 97.4 05/24/17 14:15 2.0 Physical Exam General: Alert, Oriented X3, Cooperative, No acute distress, mild distress Heart: Regular rate Lungs: Clear Abdomen: Normal bowel sounds, Soft, Other (obese, anacerca) Extremities: No edema Skin: No rashes, Other (jaundiced) Labs LABS Laboratory Tests Test 05/25/17 05:25 White Blood Count 12.5 x10^3/uL (4.0-11.0) Red Blood Count 3.36 x10^6/uL (4.30-5.70) Hemoglobin 10.8 g/dL (13.0-17.5) Hematocrit 31.8 % (39.0-53.0) Mean Corpuscular Volume 95 fL (79-100) Mean Corpuscular Hemoglobin 32 pg (25-35) Mean Corpuscular Hemoglobin Concent 34 g/dL (31-37) Red Cell Distribution Width 15.5 % (11.5-14.5) Platelet Count 261 x10^3/uL (140-400) Neutrophils (%) (Auto) 86 % (31-73) Lymphocytes (%) (Auto) 4 % (24-48) Monocytes (%) (Auto) 9 % (0-9) Eosinophils (%) (Auto) 1 % (0-3) Basophils (%) (Auto) 0 % (0-3) Neutrophils # (Auto) 10.7 x10^3uL (1.8-7.7) Lymphocytes # (Auto) 0.5 x10^3/uL (1.0-4.8) Monocytes # (Auto) 1.1 x10^3/uL (0.0-1.1) Eosinophils # (Auto) 0.1 x10^3/uL (0.0-0.7) Basophils # (Auto) 0.0 x10^3/uL (0.0-0.2) Segmented Neutrophils % 84 % (35-66) Band Neutrophils % 6 % (0-9) Lymphocytes % 3 % (24-48) Monocytes % 4 % (0-10) Eosinophils % 3 % (0-5) Toxic Granulation Mod Platelet Estimate Adequate (ADEQUATE) Anisocytosis Present Sodium Level 137 mmol/L (136-145) Potassium Level 3.4 mmol/L (3.5-5.1) Chloride Level 103 mmol/L (98-107) Carbon Dioxide Level 24 mmol/L (21-32) Anion Gap 10 (6-14) Blood Urea Nitrogen 18 mg/dL (8-26) Creatinine 1.2 mg/dL (0.7-1.3) Estimated GFR (Cockcroft-Gault) 59.0 BUN/Creatinine Ratio 15 (6-20) Glucose Level 93 mg/dL (70-99) Calcium Level 8.2 mg/dL (8.5-10.1) Total Bilirubin 13.1 mg/dL (0.2-1.0) Aspartate Amino Transf (AST/SGOT) 142 U/L (15-37) Alanine Aminotransferase (ALT/SGPT) 56 U/L (16-63) Alkaline Phosphatase 366 U/L (46-116) Total Protein 6.2 g/dL (6.4-8.2) Albumin 1.4 g/dL (3.4-5.0) Albumin/Globulin Ratio 0.3 (1.0-1.7) Nutrition Consultation Dietary Evaluation: Recommendations by RD: PPN/TPN Comments: REC Low Sodium diet Expected Outcomes/Goals: diet adv/ tolerance - met, pt on gi soft diet ~ 75% lunch today new goal: to meet > 75% est nutrition needs via po intake & nutrition support- met new goal: to meet > 75% est nutr needs via po intake Interpretation of weight loss: >1-2% in 1 week Malnutrition Findings: Food and Nutrition Intake (Sev: <50% est energy req 5days Weight Status: Overweight POOJA GALARZA MD May 25, 2017 14:59
[2017-05-25] MEDS ORDERED: CARBAMIDE PEROXIDE 6.5% OTIC SOLUTION 15ML BOTTLE. AD ONE (17:00)
[2017-05-25 19:20] VITALS: BP 99/55
[2017-05-25] MEDS: TAMSULOSIN 0.4 MG CAP.ER.24H. PO SCH (20:20)
[2017-05-25 23:20] VITALS: BP 96/54
[2017-05-26] VITALS (7 sets, daily range): BP systolic 98–141; BP diastolic 56–85
[2017-05-26] MEDS: PANTOPRAZOLE 40 MG TABLET.DR. PO SCH (09:15)
[2017-05-26] MEDS: DOCUSATE SODIUM 100 MG CAPSULE. PO SCH ×2 (09:15→21:00)
[2017-05-26] MEDS: LACTOBACILLUS RHAMNOSUS GG 1 CAPSULE. PO SCH ×2 (09:16→21:27)
[2017-05-26] MEDS: FUROSEMIDE 40 MG/4 ML VIAL. IVP SCH (09:18)
--- NOTE | 2017-05-26 09:23 | PDOC ---
PROGRESS NOTES Chief Complaint Chief Complaint Jaundice ASSESSMENT AND PLAN: 1. Choledocholithiasis: s/p ERCP 05/10 with CBD stone removal and stent placement. removal of obstructed stent on 05/24. Of note, prior biliary obstruction with stones, s/p cholecystectomy and sphincterectomy 08/2015 2. post ERCP pancreatitis: resolved 3. obstructive hepatitis: very slow improvement in LFTs, eileen bili. labs seem to be plateauing. s/p EGD with occluded stent removal. no significant improvement by labs (yet) hx liver biopsy showing chronic stasis, possible PSC; plans for Ursodiol later 4. Hypoalbuminemia: acute inflammation, liver dz, poss malnutrition as well. protein supplements 5. 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 CAD: no sx. no CHF by echo 7. HTN: well controlled 8. Fluid overload: 2/2 copious IVF during admission, very low albumin. on IV lasix; I&O neg 1L/d, stable creat 9. PNA: ?aspir. completed levaquin x10d, stopped. wean O2, nebs 9. Dry nose: prob 2/2 NC O2. saline nasal spray 10. Urinary frequency: no other sx. UA neg for infection. suspect 2/2 BPH. continue flomax 11. OA: cont home regimen 12. Prophylaxis: PPI, lovenox. 13. Weakness: severe due to prolonged severe illness. OT/PT. rehab soon. History of Present Illness History of Present Illness no focal c/o. urine remains days Vitals Vitals Vital Signs Date Time Temp Pulse Resp B/P (MAP) Pulse Ox O2 Delivery O2 Flow Rate FiO2 05/26/17 07:22 97.9 85 18 105/66 (79) 93 Room Air 97.9 Physical Exam General: Alert, Oriented X3, Cooperative, No acute distress, mild distress Heart: Regular rate Lungs: Clear Abdomen: Normal bowel sounds, Soft, Other (obese, anacerca) Extremities: No edema Skin: No rashes, Other (jaundiced) Nutrition Consultation Dietary Evaluation: Recommendations by RD: PPN/TPN Comments: REC Low Sodium diet Expected Outcomes/Goals: diet adv/ tolerance - met, pt on gi soft diet ~ 75% lunch today new goal: to meet > 75% est nutrition needs via po intake & nutrition support- met new goal: to meet > 75% est nutr needs via po intake Interpretation of weight loss: >1-2% in 1 week Malnutrition Findings: Food and Nutrition Intake (Sev: <50% est energy req 5days Weight Status: Overweight POOJA GALARZA MD May 26, 2017 09:23
--- NOTE | 2017-05-26 09:31 | PDOC ---
GI PROGRESS NOTES Date Date/Time DATE: 05/26/17 TIME: 09:28 Subjective Subjective Feels better - eating- some lower abd gas Objective Vitals Vital Signs Date Time Temp Pulse Resp B/P (MAP) Pulse Ox O2 Delivery O2 Flow Rate FiO2 05/26/17 07:22 97.9 85 18 105/66 (79) 93 Room Air 97.9 05/26/17 03:20 97.7 76 18 99/57 (71) 92 Room Air 97.7 05/25/17 23:20 98.1 85 18 96/54 (68) 94 Room Air 98.1 05/25/17 20:04 Room Air 05/25/17 19:20 97.8 85 18 99/55 (70) 95 Room Air 97.8 05/25/17 15:28 Room Air 05/25/17 14:41 97.4 89 20 101/65 (77) 95 Room Air 97.4 05/25/17 11:38 Room Air 05/25/17 11:08 18 Room Air 05/25/17 11:04 97.3 98 18 110/65 (80) 94 Room Air 97.3 05/25/17 10:08 18 Room Air Labs Labs Current Medications Medications (Trade) Dose Ordered Sig/Hector Route PRN Reason Start Time Stop Time Status Last Admin Dose Admin Docusate Sodium (Colace) 100 mg BID PO 05/09/17 21:00 05/26/17 09:15 Acetaminophen/ Hydrocodone Bitart (Lortab 5/325) 1 tab PRN Q6HRS PRN PO PAIN 05/09/17 14:15 Cancel Pantoprazole Sodium (Protonix) 40 mg DAILYAC PO 05/09/17 14:30 05/11/17 07:46 DC Diphenhydramine HCl (Benadryl) 25 mg PRN QHS PRN PO INSOMNIA 05/09/17 14:15 05/14/17 22:07 Acetaminophen/ Hydrocodone Bitart (Lortab 5/325) 1 tab PRN Q4HRS PRN PO MODERATE - SEVERE PAIN 05/09/17 14:15 05/25/17 10:08 Ondansetron HCl (Zofran) 4 mg PRN Q6HRS PRN IV NAUSEA/VOMITING 05/09/17 14:15 05/10/17 16:18 DC Levofloxacin/ Dextrose 100 ml @ 100 mls/hr Q24H IV 05/09/17 16:00 05/10/17 10:51 DC 05/09/17 16:45 Acetaminophen (Tylenol) 650 mg PRN Q6HRS PRN PO FEVER 05/10/17 12:45 Ondansetron HCl (Zofran) 4 mg PRN Q6HRS PRN IV NAUSEA/VOMITING 05/10/17 12:45 Morphine Sulfate 2 mg PRN Q2HR PRN IV PAIN 05/10/17 12:45 05/18/17 17:46 DC 05/16/17 23:57 Tramadol HCl (Ultram) 50 mg PRN Q6HRS PRN PO MILD PAIN 05/10/17 12:45 05/20/17 13:22 Hydralazine HCl (Apresoline Inj) 10 mg PRN Q4HRS PRN IVP ELEVATED BP, SEE COMMENTS 05/10/17 12:45 Docusate Sodium (Colace) 100 mg PRN DAILY PRN PO CONSTIPATION 05/10/17 12:45 05/18/17 17:46 DC Enoxaparin Sodium (Lovenox 40mg Syringe) 40 mg Q24H SQ 05/10/17 13:00 05/25/17 13:07 Iohexol (Omnipaque 300 Mg/ml) 100 ml STK-MED ONCE .ROUTE 05/10/17 14:43 05/10/17 14:44 DC Ringer's Solution 1,000 ml @ 75 mls/hr 1X ONCE IV 05/10/17 16:15 05/11/17 05:34 DC 05/10/17 16:05 Propofol 20 ml @ As Directed STK-MED ONCE IV 05/10/17 16:39 05/10/17 16:40 DC Succinylcholine Chloride (Anectine) 200 mg STK-MED ONCE .ROUTE 05/10/17 16:39 05/10/17 16:40 DC Lidocaine HCl (Lidocaine Pf 2% Vial) 5 ml STK-MED ONCE .ROUTE 05/10/17 16:39 05/10/17 16:40 DC Phenylephrine HCl (Jeffrey-Synephrine Inj) 10 mg STK-MED ONCE .ROUTE 05/10/17 16:41 05/10/17 16:42 DC Levofloxacin/ Dextrose 100 ml @ As Directed STK-MED ONCE IV 05/10/17 17:44 05/10/17 17:45 DC Lidocaine HCl (Lidocaine Pf 2% Vial) 5 ml STK-MED ONCE .ROUTE 05/10/17 18:57 05/10/17 18:58 DC Iohexol (Omnipaque 300 Mg/ml) 100 ml STK-MED ONCE INT CAT 05/10/17 18:58 05/10/17 19:00 DC 05/10/17 18:58 Levofloxacin/ Dextrose 100 ml @ 100 mls/hr Q24H IV 05/11/17 08:00 05/12/17 19:03 DC 05/12/17 09:20 Simethicone (Gas-X) 80 mg PRN AFTMEALHC PRN PO GAS / BLOATING 05/11/17 02:45 05/20/17 20:47 Morphine Sulfate 4 mg PRN Q2HR PRN IV SEVERE PAIN 05/11/17 06:15 05/16/17 21:36 DC 05/13/17 19:41 Ketorolac Tromethamine (Toradol) 30 mg 1X ONCE IV 05/11/17 08:00 05/11/17 08:01 DC 05/11/17 07:57 Sodium Chloride 1,000 ml @ 50 mls/hr Q20H IV 05/11/17 08:00 05/15/17 19:32 DC 05/15/17 13:42 Pantoprazole Sodium (Protonix Vial) 40 mg DAILYAC IVP 05/11/17 08:00 05/15/17 19:15 DC 05/15/17 09:01 Amino Acids/ Glycerin/ Electrolytes 1,000 ml @ 80 mls/hr [id number] IV 05/11/17 12:00 05/18/17 17:46 DC 05/18/17 11:29 Ketorolac Tromethamine (Toradol) 30 mg PRN Q6HRS PRN IV PAIN 05/11/17 12:00 05/15/17 10:00 DC 05/12/17 03:11 Levofloxacin/ Dextrose 100 ml @ 100 mls/hr Q24H IV 05/11/17 18:00 Cancel Albuterol Sulfate (Ventolin Neb Soln) 2.5 mg PRN Q4HRS PRN NEB SHORTNESS OF BREATH 05/12/17 14:30 05/18/17 09:21 Levofloxacin (Levaquin) 500 mg DAILY PO 05/13/17 09:00 05/21/17 17:49 DC 05/21/17 08:13 Lactobacillus Rhamnosus (Culturelle) 1 cap BID PO 05/12/17 21:00 05/26/17 09:16 Pneumococcal Polyvalent Vaccine (Do NOT chart on this placeholder) 1 each PRN DAILY PRN MC LAST DATE UNKNOWN 05/14/17 03:30 Cancel Pneumococcal Polyvalent Vaccine (Pneumovax 23) 0.5 ml ONCE ONCE VAX IM 05/16/17 09:00 05/16/17 09:01 DC Furosemide (Lasix) 20 mg DAILY PO 05/15/17 17:45 05/22/17 17:47 DC 05/22/17 08:51 Pantoprazole Sodium (Protonix) 40 mg DAILYAC PO 05/16/17 07:30 05/26/17 09:15 Polyethylene Glycol (miraLAX PACKET) 17 gm PRN BID PRN PO CONSTIPATION 05/15/17 19:30 05/15/17 22:41 Furosemide (Lasix) 20 mg 1X ONCE IVP 05/15/17 19:30 05/15/17 19:34 DC 05/15/17 22:42 Iohexol (Omnipaque 300 Mg/ml) 30 ml 1X ONCE PO 05/16/17 09:30 05/16/17 09:32 DC Iohexol (Omnipaque 240 Mg/ml) 75 ml 1X ONCE IV 05/16/17 09:30 05/16/17 09:32 DC Info (Do NOT chart on this entry -- for MONITORING) 1 each PRN DAILY PRN MC SEE COMMENTS 05/16/17 09:45 05/18/17 09:44 DC Iohexol (Omnipaque 300 Mg/ml) 75 ml 1X ONCE IV 05/16/17 09:45 05/16/17 09:48 DC Info (Do NOT chart on this entry -- for MONITORING) 1 each PRN DAILY PRN MC SEE COMMENTS 05/16/17 10:00 05/18/17 09:59 DC Albuterol/ Ipratropium (Duoneb) 3 ml RTQID NEB 05/17/17 08:00 05/25/17 15:27 Info 1 each PRN DAILY PRN MC SEE COMMENTS 05/17/17 23:15 05/21/17 17:47 DC 05/21/17 12:57 Sodium Chloride 90 meq/Potassium Chloride 50 meq/ Potassium Phosphate 13.6 mmol/Magnesium Sulfate 10 meq/ Calcium Gluconate 10 meq/ Multivitamins 10 ml/Chromium/ Copper/Manganese/ Seleni/Zn 1 ml/ Total Parenteral Nutrition/Amino Acids/Dextrose/ Fat Emulsion Intravenous 1,512 ml @ 63 mls/hr TPN CONT IV 05/18/17 22:00 05/18/17 22:00 DC Sodium Chloride 90 meq/Potassium Chloride 50 meq/ Potassium Phosphate 13.6 mmol/Magnesium Sulfate 10 meq/ Calcium Gluconate 10 meq/ Multivitamins 10 ml/Chromium/ Copper/Manganese/ Seleni/Zn 1 ml/ Total Parenteral Nutrition/Amino Acids/Dextrose/ Fat Emulsion Intravenous 1,512 ml @ 63 mls/hr TPN CONT IV 05/18/17 22:00 05/19/17 21:59 DC 05/18/17 22:26 Sodium Chloride 90 meq/Potassium Chloride 50 meq/ Potassium Phosphate 13.6 mmol/Magnesium Sulfate 10 meq/ Calcium Gluconate 10 meq/ Multivitamins 10 ml/Chromium/ Copper/Manganese/ Seleni/Zn 1 ml/ Total Parenteral Nutrition/Amino Acids/Dextrose/ Fat Emulsion Intravenous 1,512 ml @ 63 mls/hr TPN CONT IV 05/19/17 22:00 05/20/17 21:59 DC 05/19/17 22:00 Tamsulosin HCl (Flomax) 0.4 mg QHS PO 05/19/17 21:00 05/25/17 20:20 Sodium Chloride 90 meq/Potassium Chloride 50 meq/ Potassium Phosphate 13.6 mmol/Magnesium Sulfate 10 meq/ Calcium Gluconate 10 meq/ Multivitamins 10 ml/Chromium/ Copper/Manganese/ Seleni/Zn 1 ml/ Total Parenteral Nutrition/Amino Acids/Dextrose/ Fat Emulsion Intravenous 1,512 ml @ 63 mls/hr TPN CONT IV 05/20/17 22:00 05/21/17 17:42 DC 05/20/17 22:49 Sodium Chloride (Saline Mist Nasal) 1 federico PRN Q1HR PRN NS NASAL CONGESTION 05/20/17 17:45 05/21/17 14:52 Sodium Chloride 90 meq/Potassium Chloride 50 meq/ Potassium Phosphate 13.6 mmol/Magnesium Sulfate 10 meq/ Calcium Gluconate 5 meq/ Multivitamins 10 ml/Chromium/ Copper/Manganese/ Seleni/Zn 1 ml/ Total Parenteral Nutrition/Amino Acids/Dextrose/ Fat Emulsion Intravenous 1,512 ml @ 63 mls/hr TPN CONT IV 05/21/17 22:00 05/21/17 22:00 DC Dextrose/Sodium Chloride 1,000 ml @ 50 mls/hr Q20H IV 05/21/17 17:45 05/25/17 20:27 Furosemide (Lasix) 40 mg DAILY IVP 05/23/17 09:00 05/26/17 09:18 Fentanyl Citrate (Fentanyl 2ml Vial) 25 mcg PRN Q5MIN PRN IV MILD PAIN 05/25/17 07:00 05/25/17 14:58 DC Fentanyl Citrate (Fentanyl 2ml Vial) 50 mcg PRN Q5MIN PRN IV MODERATE PAIN 05/25/17 07:00 05/25/17 14:58 DC Morphine Sulfate 1 mg PRN Q10MIN PRN IV SEVERE PAIN 05/25/17 07:00 05/25/17 14:58 DC Ringer's Solution 1,000 ml @ 30 mls/hr Q24H IV 05/25/17 07:00 05/25/17 18:59 DC Lidocaine HCl (Xylocaine-Mpf 1% Vial) 2 ml PRN 1X PRN ID IV START 05/25/17 07:00 05/26/17 06:59 DC Hydromorphone HCl (Dilaudid) 0.5 mg PRN Q10MIN PRN IV SEV PAIN, Second choice 05/25/17 07:00 05/25/17 14:58 DC Prochlorperazine Edisylate (Compazine) 5 mg PACU PRN PRN IV NAUSEA, MRX1 05/25/17 07:00 05/25/17 14:58 DC Potassium Chloride 50 ml @ 25 mls/hr 1X ONCE IV 05/24/17 11:30 05/24/17 13:29 DC 05/24/17 16:31 Carbamide Peroxide (Debrox) 5 drop 1X ONCE AD 05/25/17 17:00 05/25/17 17:01 DC 05/25/17 16:44 Physical Exam Physical Exam icterus abd- soft non tender Assessment Assessment Jaundice- multifactorial- from CBD stones and cholangitis and underlying liver disease- bili has not droppe dsince repeat EGD and stent removal but clinically improving Problems: Plan Plan continue with diet and supportive care he is focused on bili but I do not expect rapid drop- hopeful for slow decrease over weeks - based on multiple causes, rather than use biliary obstruction/cholangitis alone GUNJAN BUCKNER MD May 26, 2017 09:31
[2017-05-26 09:57] LABS: CALCIUM 8.1 mg/dL (8.5-10.1); CREATININE 1.4 mg/dL (0.7-1.3); GFR 49.4; POTASSIUM 3.3 mmol/L (3.5-5.1)
[2017-05-26 10:00] LABS: BASO # 0.3 x10^3/uL (0.0-0.2); BASO % 3 % (0-3); EOS % 1 % (0-3); HEMATOCRIT 30.7 % (39.0-53.0); HEMOGLOBIN 10.6 g/dL (13.0-17.5); LYMPH # 0.6 x10^3/uL (1.0-4.8); LYMPH % 5 % (24-48); MEAN CORPUSCULAR HEMOGLOBIN 33 pg (25-35); MEAN CORPUSCULAR HGB CONC 35 g/dL (31-37); MEAN CORPUSCULAR VOLUME 94 fL (79-100); MONO % 10 % (0-9); NEUT % 81 % (31-73); PLATELET COUNT 292 x10^3/uL (140-400); RED BLOOD COUNT 3.25 x10^6/uL (4.30-5.70); RED CELL DISTRIBUTION WIDTH 16.3 % (11.5-14.5); WHITE BLOOD COUNT 10.9 x10^3/uL (4.0-11.0)
[2017-05-26 10:03] LABS: ALBUMIN 1.5 g/dL (3.4-5.0); ALBUMIN/GLOBULIN RATIO 0.3 (1.0-1.7); TOTAL BILIRUBIN 12.3 mg/dL (0.2-1.0); TOTAL PROTEIN 6.2 g/dL (6.4-8.2)
--- NOTE | 2017-05-26 10:30 | PDOC ---
Infectious Disease Note Subjective Subjective feeling ok ROS ROS GEN: Denies fevers, chills, sweats HEENT: Denies blurred vision, sore throat CV: Denies chest pain RESP: Denies shortness of air, cough GI: Denies n/v/d NEURO: Denies confusion, dizziness MSK: Denies weakness, joint pain/swelling Vital Sign Vital Signs Vital Signs Date Time Temp Pulse Resp B/P (MAP) Pulse Ox O2 Delivery O2 Flow Rate FiO2 05/26/17 08:00 Room Air 05/26/17 07:22 97.9 85 18 105/66 (79) 93 97.9 Physical Exam PHYSICAL EXAM GENERAL: NAD, Alert HEENT: PERRL, OC/OP NECK: Supple, no JVD, no LN LUNGS: Clear HEART: S1S2, no gallop, no murmur ABD: Soft, NT, no organomegaly, no rebound EXT: No edema, no cyanosis JAILER CHIEF: Alert, oriented x 3, no focal neurologic deficit SKIN: No rash IV: ok Labs Lab Laboratory Tests Test 05/26/17 09:36 White Blood Count 10.9 x10^3/uL (4.0-11.0) Red Blood Count 3.25 x10^6/uL (4.30-5.70) Hemoglobin 10.6 g/dL (13.0-17.5) Hematocrit 30.7 % (39.0-53.0) Mean Corpuscular Volume 94 fL (79-100) Mean Corpuscular Hemoglobin 33 pg (25-35) Mean Corpuscular Hemoglobin Concent 35 g/dL (31-37) Red Cell Distribution Width 16.3 % (11.5-14.5) Platelet Count 292 x10^3/uL (140-400) Neutrophils (%) (Auto) 81 % (31-73) Lymphocytes (%) (Auto) 5 % (24-48) Monocytes (%) (Auto) 10 % (0-9) Eosinophils (%) (Auto) 1 % (0-3) Basophils (%) (Auto) 3 % (0-3) Neutrophils # (Auto) 8.8 x10^3uL (1.8-7.7) Lymphocytes # (Auto) 0.6 x10^3/uL (1.0-4.8) Monocytes # (Auto) 1.1 x10^3/uL (0.0-1.1) Eosinophils # (Auto) 0.1 x10^3/uL (0.0-0.7) Basophils # (Auto) 0.3 x10^3/uL (0.0-0.2) Sodium Level 138 mmol/L (136-145) Potassium Level 3.3 mmol/L (3.5-5.1) Chloride Level 104 mmol/L (98-107) Carbon Dioxide Level 25 mmol/L (21-32) Anion Gap 9 (6-14) Blood Urea Nitrogen 18 mg/dL (8-26) Creatinine 1.4 mg/dL (0.7-1.3) Estimated GFR (Cockcroft-Gault) 49.4 BUN/Creatinine Ratio 13 (6-20) Glucose Level 94 mg/dL (70-99) Calcium Level 8.1 mg/dL (8.5-10.1) Total Bilirubin 12.3 mg/dL (0.2-1.0) Aspartate Amino Transf (AST/SGOT) 141 U/L (15-37) Alanine Aminotransferase (ALT/SGPT) 57 U/L (16-63) Alkaline Phosphatase 363 U/L (46-116) Total Protein 6.2 g/dL (6.4-8.2) Albumin 1.5 g/dL (3.4-5.0) Albumin/Globulin Ratio 0.3 (1.0-1.7) Objective Assessment Weakness some better. Nml Thyroid Choledocholithiasis and recurrent jaundice. s/p ERCP 05/10 with stone removal Leucocytosis - ? reactive and concentration- on Levofloxacin per GI 05/13, trending down Postprocedure pancreatitis improving slowly, Lipase > 23,000 now down to 320 LLL atelectasis or infiltrate and suspected small left pleural effusion. Mild elevation of procalcitonin but can be elevated with intra-abdominal processes and Renal insuff Weight loss. Malaise and fatigue. History of Serratia marcescens bacteremia in 12/2016, treated. Status post appendectomy and liver biopsy, 02/01/2017 History of diverticulosis on recent colonoscopy. Status post cholecystectomy, ERCP x 2 with sphincterotomy. GERD. Hypertension. DJD, chronic, stable. Plan Plan of Care probiotics F/u labs stent removal done, sputum with tubular long structure, sent to pathology MARILIN MOLINA MD May 26, 2017 10:30
[2017-05-26] MEDS: IPRATRPIUM/ALBUTEROL 0.5/2.5MG 3 ML NEBU. NEB SCH ×4 (12:00→21:30)
[2017-05-26] MEDS: ENOXAPARIN 40 MG/0.4 ML SYRINGE. SQ SCH (13:22)
[2017-05-26] MEDS: IV DEXTROSE 5% - 0.9 % NACL 1,000 ML IV SCH (17:33)
[2017-05-26] MEDS: TAMSULOSIN 0.4 MG CAP.ER.24H. PO SCH (21:27)
[2017-05-27] MEDS: ZOLPIDEM 5 MG TABLET. PO PRN (00:24)
[2017-05-27 03:07] VITALS: BP 99/55
[2017-05-27 07:00] VITALS: BP 105/58
[2017-05-27] MEDS: IPRATRPIUM/ALBUTEROL 0.5/2.5MG 3 ML NEBU. NEB SCH ×4 (08:17→18:32)
[2017-05-27] MEDS: LACTOBACILLUS RHAMNOSUS GG 1 CAPSULE. PO SCH ×2 (08:48→20:21)
[2017-05-27] MEDS: FUROSEMIDE 40 MG/4 ML VIAL. IVP SCH (08:48)
[2017-05-27] MEDS: PANTOPRAZOLE 40 MG TABLET.DR. PO SCH (08:48)
[2017-05-27] MEDS: DOCUSATE SODIUM 100 MG CAPSULE. PO SCH ×2 (08:55→20:24)
[2017-05-27 11:01] VITALS: BP 108/68
--- NOTE | 2017-05-27 11:13 | PDOC ---
G I PROGRESS NOTE Subjective Denies pain. Easily winded. Eating w/o incident. Physical Exam Remains icteric. Lungs clear. RRR Abdomen soft, protuberant. No tenderness. Review of Relevant I have reviewed the following items jadon (where applicable) has been applied. Labs Laboratory Tests Test 05/26/17 09:36 White Blood Count 10.9 x10^3/uL (4.0-11.0) Red Blood Count 3.25 x10^6/uL (4.30-5.70) Hemoglobin 10.6 g/dL (13.0-17.5) Hematocrit 30.7 % (39.0-53.0) Mean Corpuscular Volume 94 fL (79-100) Mean Corpuscular Hemoglobin 33 pg (25-35) Mean Corpuscular Hemoglobin Concent 35 g/dL (31-37) Red Cell Distribution Width 16.3 % (11.5-14.5) Platelet Count 292 x10^3/uL (140-400) Neutrophils (%) (Auto) 81 % (31-73) Lymphocytes (%) (Auto) 5 % (24-48) Monocytes (%) (Auto) 10 % (0-9) Eosinophils (%) (Auto) 1 % (0-3) Basophils (%) (Auto) 3 % (0-3) Neutrophils # (Auto) 8.8 x10^3uL (1.8-7.7) Lymphocytes # (Auto) 0.6 x10^3/uL (1.0-4.8) Monocytes # (Auto) 1.1 x10^3/uL (0.0-1.1) Eosinophils # (Auto) 0.1 x10^3/uL (0.0-0.7) Basophils # (Auto) 0.3 x10^3/uL (0.0-0.2) Sodium Level 138 mmol/L (136-145) Potassium Level 3.3 mmol/L (3.5-5.1) Chloride Level 104 mmol/L (98-107) Carbon Dioxide Level 25 mmol/L (21-32) Anion Gap 9 (6-14) Blood Urea Nitrogen 18 mg/dL (8-26) Creatinine 1.4 mg/dL (0.7-1.3) Estimated GFR (Cockcroft-Gault) 49.4 BUN/Creatinine Ratio 13 (6-20) Glucose Level 94 mg/dL (70-99) Calcium Level 8.1 mg/dL (8.5-10.1) Total Bilirubin 12.3 mg/dL (0.2-1.0) Aspartate Amino Transf (AST/SGOT) 141 U/L (15-37) Alanine Aminotransferase (ALT/SGPT) 57 U/L (16-63) Alkaline Phosphatase 363 U/L (46-116) Total Protein 6.2 g/dL (6.4-8.2) Albumin 1.5 g/dL (3.4-5.0) Albumin/Globulin Ratio 0.3 (1.0-1.7) Microbiology 05/09/17 Blood Culture - Final, Complete NO GROWTH AFTER 5 DAYS 05/19/17 Urine Culture - Final, Complete 05/19/17 Urine Culture Result 1 (CHELE) - Final, Complete Today's lab pending. Bili and LFT's have been "hanging". Medications Current Medications Docusate Sodium (Colace) 100 mg BID PO Last administered on 05/26/17 09:15; Start 05/09/17 at 21:00 Acetaminophen/ Hydrocodone Bitart (Lortab 5/325) 1 tab PRN Q6HRS PRN PO PAIN; Start 05/09/17 at 14:15; Status Cancel Pantoprazole Sodium (Protonix) 40 mg DAILYAC PO ; Start 05/09/17 at 14:30; Stop 05/11/17 at 07:46; Status DC Diphenhydramine HCl (Benadryl) 25 mg PRN QHS PRN PO INSOMNIA Last administered on 05/14/17 22:07; Start 05/09/17 at 14:15 Acetaminophen/ Hydrocodone Bitart (Lortab 5/325) 1 tab PRN Q4HRS PRN PO MODERATE - SEVERE PAIN Last administered on 05/25/17 10:08; Start 05/09/17 at 14:15 Ondansetron HCl (Zofran) 4 mg PRN Q6HRS PRN IV NAUSEA/VOMITING; Start 05/09/17 at 14:15; Stop 05/10/17 at 16:18; Status DC Levofloxacin/ Dextrose 100 ml @ 100 mls/hr Q24H IV Last administered on 16:45; Start 05/09/17 at 16:00; Stop 05/10/17 at 10:51; Status DC Acetaminophen (Tylenol) 650 mg PRN Q6HRS PRN PO FEVER; Start 05/10/17 at 12:45 Ondansetron HCl (Zofran) 4 mg PRN Q6HRS PRN IV NAUSEA/VOMITING; Start 05/10/17 at 12:45 Morphine Sulfate 2 mg PRN Q2HR PRN IV PAIN Last administered on 05/16/17 23: 57; Start 05/10/17 at 12:45; Stop 05/18/17 at 17:46; Status DC Tramadol HCl (Ultram) 50 mg PRN Q6HRS PRN PO MILD PAIN Last administered on 13:22; Start 05/10/17 at 12:45 Hydralazine HCl (Apresoline Inj) 10 mg PRN Q4HRS PRN IVP ELEVATED BP, SEE COMMENTS; Start 05/10/17 at 12:45 Docusate Sodium (Colace) 100 mg PRN DAILY PRN PO CONSTIPATION; Start 05/10/17 at 12:45; Stop 05/18/17 at 17:46; Status DC Enoxaparin Sodium (Lovenox 40mg Syringe) 40 mg Q24H SQ Last administered on 13:22; Start 05/10/17 at 13:00 Iohexol (Omnipaque 300 Mg/ml) 100 ml STK-MED ONCE .ROUTE ; Start 05/10/17 at 14: 43; Stop 05/10/17 at 14:44; Status DC Ringer's Solution 1,000 ml @ 75 mls/hr 1X ONCE IV Last administered on 16:05; Start 05/10/17 at 16:15; Stop 05/11/17 at 05:34; Status DC Propofol 20 ml @ As Directed STK-MED ONCE IV ; Start 05/10/17 at 16:39; Stop at 16:40; Status DC Succinylcholine Chloride (Anectine) 200 mg STK-MED ONCE .ROUTE ; Start 05/10/17 at 16:39; Stop 05/10/17 at 16:40; Status DC Lidocaine HCl (Lidocaine Pf 2% Vial) 5 ml STK-MED ONCE .ROUTE ; Start 05/10/17 at 16:39; Stop 05/10/17 at 16:40; Status DC Phenylephrine HCl (Jeffrey-Synephrine Inj) 10 mg STK-MED ONCE .ROUTE ; Start at 16:41; Stop 05/10/17 at 16:42; Status DC Levofloxacin/ Dextrose 100 ml @ As Directed STK-MED ONCE IV ; Start 05/10/17 at 17:44; Stop 05/10/17 at 17:45; Status DC Lidocaine HCl (Lidocaine Pf 2% Vial) 5 ml STK-MED ONCE .ROUTE ; Start 05/10/17 at 18:57; Stop 05/10/17 at 18:58; Status DC Iohexol (Omnipaque 300 Mg/ml) 100 ml STK-MED ONCE INT CAT Last administered on 05/10/17 18:58; Start 05/10/17 at 18:58; Stop 05/10/17 at 19:00; Status DC Levofloxacin/ Dextrose 100 ml @ 100 mls/hr Q24H IV Last administered on 09:20; Start 05/11/17 at 08:00; Stop 05/12/17 at 19:03; Status DC Simethicone (Gas-X) 80 mg PRN AFTMEALHC PRN PO GAS / BLOATING Last administered on 05/20/17 20:47; Start 05/11/17 at 02:45 Morphine Sulfate 4 mg PRN Q2HR PRN IV SEVERE PAIN Last administered on 19:41; Start 05/11/17 at 06:15; Stop 05/16/17 at 21:36; Status DC Ketorolac Tromethamine (Toradol) 30 mg 1X ONCE IV Last administered on 07:57; Start 05/11/17 at 08:00; Stop 05/11/17 at 08:01; Status DC Sodium Chloride 1,000 ml @ 50 mls/hr Q20H IV Last administered on 05/15/17 13:42; Start 05/11/17 at 08:00; Stop 05/15/17 at 19:32; Status DC Pantoprazole Sodium (Protonix Vial) 40 mg DAILYAC IVP Last administered on 09:01; Start 05/11/17 at 08:00; Stop 05/15/17 at 19:15; Status DC Amino Acids/ Glycerin/ Electrolytes 1,000 ml @ 80 mls/hr [id number] IV Last administered on 05/18/17 11:29; Start 05/11/17 at 12:00; Stop 05/18/17 at 17: 46; Status DC Ketorolac Tromethamine (Toradol) 30 mg PRN Q6HRS PRN IV PAIN Last administered on 05/12/17 03:11; Start 05/11/17 at 12:00; Stop 05/15/17 at 10:00; Status DC Levofloxacin/ Dextrose 100 ml @ 100 mls/hr Q24H IV ; Start 05/11/17 at 18:00; Status Cancel Albuterol Sulfate (Ventolin Neb Soln) 2.5 mg PRN Q4HRS PRN NEB SHORTNESS OF BREATH Last administered on 05/18/17 09:21; Start 05/12/17 at 14:30 Levofloxacin (Levaquin) 500 mg DAILY PO Last administered on 05/21/17 08:13; Start 05/13/17 at 09:00; Stop 05/21/17 at 17:49; Status DC Lactobacillus Rhamnosus (Culturelle) 1 cap BID PO Last administered on 08:48; Start 05/12/17 at 21:00 Pneumococcal Polyvalent Vaccine (Do NOT chart on this placeholder) 1 each PRN DAILY PRN MC LAST DATE UNKNOWN; Start 05/14/17 at 03:30; Status Cancel Pneumococcal Polyvalent Vaccine (Pneumovax 23) 0.5 ml ONCE ONCE VAX IM ; Start 05/16/17 at 09:00; Stop 05/16/17 at 09:01; Status DC Furosemide (Lasix) 20 mg DAILY PO Last administered on 05/22/17 08:51; Start 05/15/17 at 17:45; Stop 05/22/17 at 17:47; Status DC Pantoprazole Sodium (Protonix) 40 mg DAILYAC PO Last administered on 08:48; Start 05/16/17 at 07:30 Polyethylene Glycol (miraLAX PACKET) 17 gm PRN BID PRN PO CONSTIPATION Last administered on 11/13/17at 22:41; Start 05/15/17 at 19:30 Furosemide (Lasix) 20 mg 1X ONCE IVP Last administered on 05/15/17 22:42; Start 05/15/17 at 19:30; Stop 05/15/17 at 19:34; Status DC Iohexol (Omnipaque 300 Mg/ml) 30 ml 1X ONCE PO ; Start 05/16/17 at 09:30; Stop 05/16/17 at 09:32; Status DC Iohexol (Omnipaque 240 Mg/ml) 75 ml 1X ONCE IV ; Start 05/16/17 at 09:30; Stop 05/16/17 at 09:32; Status DC Info (Do NOT chart on this entry -- for MONITORING) 1 each PRN DAILY PRN MC SEE COMMENTS; Start 05/16/17 at 09:45; Stop 05/18/17 at 09:44; Status DC Iohexol (Omnipaque 300 Mg/ml) 75 ml 1X ONCE IV ; Start 05/16/17 at 09:45; Stop 05/16/17 at 09:48; Status DC Info (Do NOT chart on this entry -- for MONITORING) 1 each PRN DAILY PRN MC SEE COMMENTS; Start 05/16/17 at 10:00; Stop 05/18/17 at 09:59; Status DC Albuterol/ Ipratropium (Duoneb) 3 ml RTQID NEB Last administered on 05/27/17 08:17; Start 05/17/17 at 08:00 Info 1 each PRN DAILY PRN MC SEE COMMENTS Last administered on 05/21/17 12:57 ; Start 05/17/17 at 23:15; Stop 05/21/17 at 17:47; Status DC Sodium Chloride 90 meq/Potassium Chloride 50 meq/ Potassium Phosphate 13.6 mmol/ Magnesium Sulfate 10 meq/ Calcium Gluconate 10 meq/ Multivitamins 10 ml/Chromium / Copper/Manganese/ Seleni/Zn 1 ml/ Total Parenteral Nutrition/Amino Acids/ Dextrose/ Fat Emulsion Intravenous 1,512 ml @ 63 mls/hr TPN CONT IV ; Start 05/18/17 at 22:00; Stop 05/18/17 at 22:00; Status DC Sodium Chloride 90 meq/Potassium Chloride 50 meq/ Potassium Phosphate 13.6 mmol/ Magnesium Sulfate 10 meq/ Calcium Gluconate 10 meq/ Multivitamins 10 ml/Chromium / Copper/Manganese/ Seleni/Zn 1 ml/ Total Parenteral Nutrition/Amino Acids/ Dextrose/ Fat Emulsion Intravenous 1,512 ml @ 63 mls/hr TPN CONT IV Last administered on 05/18/17 22:26; Start 05/18/17 at 22:00; Stop 05/19/17 at 21 :59; Status DC Sodium Chloride 90 meq/Potassium Chloride 50 meq/ Potassium Phosphate 13.6 mmol/ Magnesium Sulfate 10 meq/ Calcium Gluconate 10 meq/ Multivitamins 10 ml/Chromium / Copper/Manganese/ Seleni/Zn 1 ml/ Total Parenteral Nutrition/Amino Acids/ Dextrose/ Fat Emulsion Intravenous 1,512 ml @ 63 mls/hr TPN CONT IV Last administered on 05/19/17 22:00; Start 05/19/17 at 22:00; Stop 05/20/17 at 21 :59; Status DC Tamsulosin HCl (Flomax) 0.4 mg QHS PO Last administered on 05/26/17 21:27; Start 05/19/17 at 21:00 Sodium Chloride 90 meq/Potassium Chloride 50 meq/ Potassium Phosphate 13.6 mmol/ Magnesium Sulfate 10 meq/ Calcium Gluconate 10 meq/ Multivitamins 10 ml/Chromium / Copper/Manganese/ Seleni/Zn 1 ml/ Total Parenteral Nutrition/Amino Acids/ Dextrose/ Fat Emulsion Intravenous 1,512 ml @ 63 mls/hr TPN CONT IV Last administered on 05/20/17 22:49; Start 05/20/17 at 22:00; Stop 05/21/17 at 17 :42; Status DC Sodium Chloride (Saline Mist Nasal) 1 federico PRN Q1HR PRN NS NASAL CONGESTION Last administered on 05/21/17 14:52; Start 05/20/17 at 17:45 Sodium Chloride 90 meq/Potassium Chloride 50 meq/ Potassium Phosphate 13.6 mmol/ Magnesium Sulfate 10 meq/ Calcium Gluconate 5 meq/ Multivitamins 10 ml/Chromium / Copper/Manganese/ Seleni/Zn 1 ml/ Total Parenteral Nutrition/Amino Acids/ Dextrose/ Fat Emulsion Intravenous 1,512 ml @ 63 mls/hr TPN CONT IV ; Start 05/21/17 at 22:00; Stop 05/21/17 at 22:00; Status DC Dextrose/Sodium Chloride 1,000 ml @ 50 mls/hr Q20H IV Last administered on 17:33; Start 05/21/17 at 17:45 Furosemide (Lasix) 40 mg DAILY IVP Last administered on 05/27/17 08:48; Start 05/23/17 at 09:00 Fentanyl Citrate (Fentanyl 2ml Vial) 25 mcg PRN Q5MIN PRN IV MILD PAIN; Start 05/25/17 at 07:00; Stop 05/25/17 at 14:58; Status DC Fentanyl Citrate (Fentanyl 2ml Vial) 50 mcg PRN Q5MIN PRN IV MODERATE PAIN; Start 05/25/17 at 07:00; Stop 05/25/17 at 14:58; Status DC Morphine Sulfate 1 mg PRN Q10MIN PRN IV SEVERE PAIN; Start 05/25/17 at 07:00; Stop 05/25/17 at 14:58; Status DC Ringer's Solution 1,000 ml @ 30 mls/hr Q24H IV ; Start 05/25/17 at 07:00; Stop 05/25/17 at 18:59; Status DC Lidocaine HCl (Xylocaine-Mpf 1% Vial) 2 ml PRN 1X PRN ID IV START; Start 05/25 at 07:00; Stop 05/26/17 at 06:59; Status DC Hydromorphone HCl (Dilaudid) 0.5 mg PRN Q10MIN PRN IV SEV PAIN, Second choice; Start 05/25/17 at 07:00; Stop 05/25/17 at 14:58; Status DC Prochlorperazine Edisylate (Compazine) 5 mg PACU PRN PRN IV NAUSEA, MRX1; Start 05/25/17 at 07:00; Stop 05/25/17 at 14:58; Status DC Potassium Chloride 50 ml @ 25 mls/hr 1X ONCE IV Last administered on 16:31; Start 05/24/17 at 11:30; Stop 05/24/17 at 13:29; Status DC Carbamide Peroxide (Debrox) 5 drop 1X ONCE AD Last administered on 05/25/17 16:44; Start 05/25/17 at 17:00; Stop 05/25/17 at 17:01; Status DC Zolpidem Tartrate (Ambien) 5 mg PRN QHS PRN PO INSOMNIA, MAY REPEAT IN 1HR Last administered on 05/27/17t 00:24; Start 05/27/17 at 00:15 Active Scripts Active Pantoprazole Sodium 40 Mg Tablet. 40 Mg PO DAILYAC Reported Divalproex Sodium 500 Mg Tablet. 500 Mg PO BID Citalopram Hbr (Citalopram Hydrobromide) 20 Mg Tablet 20 Mg PO DAILY Vitamin D3 (Cholecalciferol (Vitamin D3)) 5,000 Unit Tablet 5,000 Unit PO WEEKLY Vitamin D3 (Cholecalciferol (Vitamin D3)) 5,000 Unit Tablet 5,000 Unit PO DAILY Thera-M (Multivits, W-Fe,Other Min) 1 Each Tablet 1 Each PO DAILY Senna (Sennosides) 8.6 Mg Tablet 8.6 Mg PO DAILY Risperidone 0.5 Mg Tablet 0.25 Mg PO BID Tradjenta (Linagliptin) 5 Mg Tablet 5 Mg PO DAILY Olanzapine 5 Mg Tablet 2.5 Mg PO PRN Q2HRS PRN Potassium Chloride 10 Meq Tablet.er 10 Meq PO DAILY Mirtazapine 15 Mg Tablet 15 Mg PO QHS Gabapentin 100 Mg Capsule 200 Mg PO TID Omeprazole 20 Mg Capsule.dr 20 Mg PO PRN Sulfamethoxazole-Tmp Ds Tablet (Sulfamethoxazole/Trimethoprim) 1 Each Tablet 1 Tab PO BID [facility] Rx Capsule (Lactobacillus Casei/Folic Acid) 1 Each Capsule 1 Each PO HS Hydrocodone-Apap 5-325 (Hydrocodone Bit/Acetaminophen) 1 Each Tablet 1-2 Tab PO PRN Q6HRS PRN LAST DOSE GIVEN: DATE: TIME: Colace (Docusate Sodium) 100 Mg Capsule 1 Cap PO BID Vitals/I & O Vital Sign - Last 24 Hours 05/26/17 05/26/17 05/26/17 05/26/17 12:07 15:11 19:30 19:34 Temp 98.8 96.6 98.8 96.6 Pulse 86 100 Resp 18 20 B/P (MAP) 99/56 (70) 113/70 (84) Pulse Ox 94 95 96 O2 Delivery Room Air Room Air Room Air Room Air 05/26/17 05/26/17 05/27/17 05/27/17 21:27 23:07 03:07 07:00 Temp 98.6 97.8 97.7 98.6 97.8 97.7 Pulse 78 78 80 Resp 20 16 16 16 B/P (MAP) 98/60 (73) 99/55 (70) 105/58 (74) Pulse Ox 93 92 92 O2 Delivery Room Air Room Air Room Air Room Air 05/27/17 05/27/17 08:18 11:01 Temp 97.3 97.3 Pulse 80 Resp 17 B/P (MAP) 108/68 (81) Pulse Ox 92 92 O2 Delivery Room Air Room Air Intake and Output 05/26/17 05/26/17 05/27/17 15:00 23:00 07:00 Intake Total 610 ml Output Total 1800 ml 300 ml 600 ml Balance -1800 ml -300 ml 10 ml Problem List Problems Medical Problems: (1) Jaundice Status: Acute (2) Liver failure Status: Acute Assessment Choledocholithiasis, recurrent. For the time being, cleared. Jaundice. By now, much of the bilirubin is likely covalently albumin-bound and will not fall rapidly. Abnormal LFT's, persistent. 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 He says Dr. Arias contemplating choleretic like DARREN. Plan of Care: Continue current Tx, Mgmt Plan of Care Note Does not have to remain in hospital until normal bilirubin; OK to go home when otherwise ready. PHONG MORALES MD May 27, 2017 11:13
[2017-05-27] MEDS: ENOXAPARIN 40 MG/0.4 ML SYRINGE. SQ SCH (12:14)
[2017-05-27] MEDS: IV DEXTROSE 5% - 0.9 % NACL 1,000 ML IV SCH (12:15)
--- NOTE | 2017-05-27 13:57 | PDOC ---
PROGRESS NOTES Chief Complaint Chief Complaint Jaundice ASSESSMENT AND PLAN: 1. Choledocholithiasis: s/p ERCP 05/10 with CBD stone removal and stent placement. removal of obstructed stent on 05/24. prior biliary obstruction with stones, s/p cholecystectomy and sphincterectomy 08/2015 2. post ERCP pancreatitis: resolved 3. obstructive hepatitis: very slow improvement in LFTs, eileen bili. plans for Ursodiol later 4. Hypoalbuminemia: 5. 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 CAD: no sx. 7. HTN: well controlled 8. Fluid overload: 2/2 copious IVF during admission, very low albumin. 9. PNA: ?aspir. completed levaquin x10d, 9. Dry nose: prob 2/2 NC O2. saline nasal spray History of Present Illness History of Present Illness still jaundiced As per gI note, ok to dc home, possible ursodiol on dc Ff up with them as OP\ Also cleraed from ID to leave I was about to dc today, BUT PT THEN AGREED to SNU as recommended by PT Was initially only agreeable to HH PLAN: Keep unitl Monday SW monday - SNU monday CPm [place] Ceja ID Vitals Vitals Vital Signs Date Time Temp Pulse Resp B/P (MAP) Pulse Ox O2 Delivery O2 Flow Rate FiO2 05/27/17 11:01 97.3 80 17 108/68 (81) 92 Room Air 97.3 Physical Exam General: Alert, Oriented X3, Cooperative, No acute distress, mild distress Heart: Regular rate Lungs: Clear Abdomen: Normal bowel sounds, Soft, Other (obese, [place]) Extremities: No edema Skin: No rashes, Other (jaundiced) Review of Systems Review of Systems jaundice, no abd pain, some soa, weakness, no cp Assessment and Plan Assessmemt and Plan Problems Medical Problems: (1) Jaundice Status: Acute (2) Liver failure Status: Acute Problems: Comment Review of Relevant I have reviewed the following items jadon (where applicable) has been applied. Labs Laboratory Tests Test 05/26/17 09:36 White Blood Count 10.9 x10^3/uL (4.0-11.0) Red Blood Count 3.25 x10^6/uL (4.30-5.70) Hemoglobin 10.6 g/dL (13.0-17.5) Hematocrit 30.7 % (39.0-53.0) Mean Corpuscular Volume 94 fL (79-100) Mean Corpuscular Hemoglobin 33 pg (25-35) Mean Corpuscular Hemoglobin Concent 35 g/dL (31-37) Red Cell Distribution Width 16.3 % (11.5-14.5) Platelet Count 292 x10^3/uL (140-400) Neutrophils (%) (Auto) 81 % (31-73) Lymphocytes (%) (Auto) 5 % (24-48) Monocytes (%) (Auto) 10 % (0-9) Eosinophils (%) (Auto) 1 % (0-3) Basophils (%) (Auto) 3 % (0-3) Neutrophils # (Auto) 8.8 x10^3uL (1.8-7.7) Lymphocytes # (Auto) 0.6 x10^3/uL (1.0-4.8) Monocytes # (Auto) 1.1 x10^3/uL (0.0-1.1) Eosinophils # (Auto) 0.1 x10^3/uL (0.0-0.7) Basophils # (Auto) 0.3 x10^3/uL (0.0-0.2) Sodium Level 138 mmol/L (136-145) Potassium Level 3.3 mmol/L (3.5-5.1) Chloride Level 104 mmol/L (98-107) Carbon Dioxide Level 25 mmol/L (21-32) Anion Gap 9 (6-14) Blood Urea Nitrogen 18 mg/dL (8-26) Creatinine 1.4 mg/dL (0.7-1.3) Estimated GFR (Cockcroft-Gault) 49.4 BUN/Creatinine Ratio 13 (6-20) Glucose Level 94 mg/dL (70-99) Calcium Level 8.1 mg/dL (8.5-10.1) Total Bilirubin 12.3 mg/dL (0.2-1.0) Aspartate Amino Transf (AST/SGOT) 141 U/L (15-37) Alanine Aminotransferase (ALT/SGPT) 57 U/L (16-63) Alkaline Phosphatase 363 U/L (46-116) Total Protein 6.2 g/dL (6.4-8.2) Albumin 1.5 g/dL (3.4-5.0) Albumin/Globulin Ratio 0.3 (1.0-1.7) Microbiology 05/09/17 Blood Culture - Final, Complete NO GROWTH AFTER 5 DAYS 05/19/17 Urine Culture - Final, Complete 05/19/17 Urine Culture Result 1 (CHELE) - Final, Complete Medications Current Medications Docusate Sodium (Colace) 100 mg BID PO Last administered on 05/26/17 09:15; Start 05/09/17 at 21:00 Acetaminophen/ Hydrocodone Bitart (Lortab 5/325) 1 tab PRN Q6HRS PRN PO PAIN; Start 05/09/17 at 14:15; Status Cancel Pantoprazole Sodium (Protonix) 40 mg DAILYAC PO ; Start 05/09/17 at 14:30; Stop 05/11/17 at 07:46; Status DC Diphenhydramine HCl (Benadryl) 25 mg PRN QHS PRN PO INSOMNIA Last administered on 05/14/17 22:07; Start 05/09/17 at 14:15 Acetaminophen/ Hydrocodone Bitart (Lortab 5/325) 1 tab PRN Q4HRS PRN PO MODERATE - SEVERE PAIN Last administered on 05/25/17 10:08; Start 05/09/17 at 14:15 Ondansetron HCl (Zofran) 4 mg PRN Q6HRS PRN IV NAUSEA/VOMITING; Start 05/09/17 at 14:15; Stop 05/10/17 at 16:18; Status DC Levofloxacin/ Dextrose 100 ml @ 100 mls/hr Q24H IV Last administered on 16:45; Start 05/09/17 at 16:00; Stop 05/10/17 at 10:51; Status DC Acetaminophen (Tylenol) 650 mg PRN Q6HRS PRN PO FEVER; Start 05/10/17 at 12:45 Ondansetron HCl (Zofran) 4 mg PRN Q6HRS PRN IV NAUSEA/VOMITING; Start 05/10/17 at 12:45 Morphine Sulfate 2 mg PRN Q2HR PRN IV PAIN Last administered on 05/16/17 23: 57; Start 05/10/17 at 12:45; Stop 05/18/17 at 17:46; Status DC Tramadol HCl (Ultram) 50 mg PRN Q6HRS PRN PO MILD PAIN Last administered on 13:22; Start 05/10/17 at 12:45 Hydralazine HCl (Apresoline Inj) 10 mg PRN Q4HRS PRN IVP ELEVATED BP, SEE COMMENTS; Start 05/10/17 at 12:45 Docusate Sodium (Colace) 100 mg PRN DAILY PRN PO CONSTIPATION; Start 05/10/17 at 12:45; Stop 05/18/17 at 17:46; Status DC Enoxaparin Sodium (Lovenox 40mg Syringe) 40 mg Q24H SQ Last administered on 12:14; Start 05/10/17 at 13:00; Stop 05/27/17 at 12:59; Status DC Iohexol (Omnipaque 300 Mg/ml) 100 ml STK-MED ONCE .ROUTE ; Start 05/10/17 at 14: 43; Stop 05/10/17 at 14:44; Status DC Ringer's Solution 1,000 ml @ 75 mls/hr 1X ONCE IV Last administered on 16:05; Start 05/10/17 at 16:15; Stop 05/11/17 at 05:34; Status DC Propofol 20 ml @ As Directed STK-MED ONCE IV ; Start 05/10/17 at 16:39; Stop at 16:40; Status DC Succinylcholine Chloride (Anectine) 200 mg STK-MED ONCE .ROUTE ; Start 05/10/17 at 16:39; Stop 05/10/17 at 16:40; Status DC Lidocaine HCl (Lidocaine Pf 2% Vial) 5 ml STK-MED ONCE .ROUTE ; Start 05/10/17 at 16:39; Stop 05/10/17 at 16:40; Status DC Phenylephrine HCl (Jeffrey-Synephrine Inj) 10 mg STK-MED ONCE .ROUTE ; Start at 16:41; Stop 05/10/17 at 16:42; Status DC Levofloxacin/ Dextrose 100 ml @ As Directed STK-MED ONCE IV ; Start 05/10/17 at 17:44; Stop 05/10/17 at 17:45; Status DC Lidocaine HCl (Lidocaine Pf 2% Vial) 5 ml STK-MED ONCE .ROUTE ; Start 05/10/17 at 18:57; Stop 05/10/17 at 18:58; Status DC Iohexol (Omnipaque 300 Mg/ml) 100 ml STK-MED ONCE INT CAT Last administered on 05/10/17 18:58; Start 05/10/17 at 18:58; Stop 05/10/17 at 19:00; Status DC Levofloxacin/ Dextrose 100 ml @ 100 mls/hr Q24H IV Last administered on 09:20; Start 05/11/17 at 08:00; Stop 05/12/17 at 19:03; Status DC Simethicone (Gas-X) 80 mg PRN AFTMEALHC PRN PO GAS / BLOATING Last administered on 05/20/17 20:47; Start 05/11/17 at 02:45 Morphine Sulfate 4 mg PRN Q2HR PRN IV SEVERE PAIN Last administered on 19:41; Start 05/11/17 at 06:15; Stop 05/16/17 at 21:36; Status DC Ketorolac Tromethamine (Toradol) 30 mg 1X ONCE IV Last administered on 07:57; Start 05/11/17 at 08:00; Stop 05/11/17 at 08:01; Status DC Sodium Chloride 1,000 ml @ 50 mls/hr Q20H IV Last administered on 05/15/17 13:42; Start 05/11/17 at 08:00; Stop 05/15/17 at 19:32; Status DC Pantoprazole Sodium (Protonix Vial) 40 mg DAILYAC IVP Last administered on 09:01; Start 05/11/17 at 08:00; Stop 05/15/17 at 19:15; Status DC Amino Acids/ Glycerin/ Electrolytes 1,000 ml @ 80 mls/hr [id number] IV Last administered on 05/18/17 11:29; Start 05/11/17 at 12:00; Stop 05/18/17 at 17: 46; Status DC Ketorolac Tromethamine (Toradol) 30 mg PRN Q6HRS PRN IV PAIN Last administered on 05/12/17 03:11; Start 05/11/17 at 12:00; Stop 05/15/17 at 10:00; Status DC Levofloxacin/ Dextrose 100 ml @ 100 mls/hr Q24H IV ; Start 05/11/17 at 18:00; Status Cancel Albuterol Sulfate (Ventolin Neb Soln) 2.5 mg PRN Q4HRS PRN NEB SHORTNESS OF BREATH Last administered on 05/18/17 09:21; Start 05/12/17 at 14:30 Levofloxacin (Levaquin) 500 mg DAILY PO Last administered on 05/21/17 08:13; Start 05/13/17 at 09:00; Stop 05/21/17 at 17:49; Status DC Lactobacillus Rhamnosus (Culturelle) 1 cap BID PO Last administered on 08:48; Start 05/12/17 at 21:00 Pneumococcal Polyvalent Vaccine (Do NOT chart on this placeholder) 1 each PRN DAILY PRN MC LAST DATE UNKNOWN; Start 05/14/17 at 03:30; Status Cancel Pneumococcal Polyvalent Vaccine (Pneumovax 23) 0.5 ml ONCE ONCE VAX IM ; Start 05/16/17 at 09:00; Stop 05/16/17 at 09:01; Status DC Furosemide (Lasix) 20 mg DAILY PO Last administered on 05/22/17 08:51; Start 05/15/17 at 17:45; Stop 05/22/17 at 17:47; Status DC Pantoprazole Sodium (Protonix) 40 mg DAILYAC PO Last administered on 08:48; Start 05/16/17 at 07:30 Polyethylene Glycol (miraLAX PACKET) 17 gm PRN BID PRN PO CONSTIPATION Last administered on 05/15/17 22:41; Start 05/15/17 at 19:30 Furosemide (Lasix) 20 mg 1X ONCE IVP Last administered on 05/15/17 22:42; Start 05/15/17 at 19:30; Stop 05/15/17 at 19:34; Status DC Iohexol (Omnipaque 300 Mg/ml) 30 ml 1X ONCE PO ; Start 05/16/17 at 09:30; Stop 05/16/17 at 09:32; Status DC Iohexol (Omnipaque 240 Mg/ml) 75 ml 1X ONCE IV ; Start 05/16/17 at 09:30; Stop 05/16/17 at 09:32; Status DC Info (Do NOT chart on this entry -- for MONITORING) 1 each PRN DAILY PRN MC SEE COMMENTS; Start 05/16/17 at 09:45; Stop 05/18/17 at 09:44; Status DC Iohexol (Omnipaque 300 Mg/ml) 75 ml 1X ONCE IV ; Start 05/16/17 at 09:45; Stop 05/16/17 at 09:48; Status DC Info (Do NOT chart on this entry -- for MONITORING) 1 each PRN DAILY PRN MC SEE COMMENTS; Start 05/16/17 at 10:00; Stop 05/18/17 at 09:59; Status DC Albuterol/ Ipratropium (Duoneb) 3 ml RTQID NEB Last administered on 05/27/17 08:17; Start 05/17/17 at 08:00 Info 1 each PRN DAILY PRN MC SEE COMMENTS Last administered on 05/21/17 12:57 ; Start 05/17/17 at 23:15; Stop 05/21/17 at 17:47; Status DC Sodium Chloride 90 meq/Potassium Chloride 50 meq/ Potassium Phosphate 13.6 mmol/ Magnesium Sulfate 10 meq/ Calcium Gluconate 10 meq/ Multivitamins 10 ml/Chromium / Copper/Manganese/ Seleni/Zn 1 ml/ Total Parenteral Nutrition/Amino Acids/ Dextrose/ Fat Emulsion Intravenous 1,512 ml @ 63 mls/hr TPN CONT IV ; Start 05/18/17 at 22:00; Stop 05/18/17 at 22:00; Status DC Sodium Chloride 90 meq/Potassium Chloride 50 meq/ Potassium Phosphate 13.6 mmol/ Magnesium Sulfate 10 meq/ Calcium Gluconate 10 meq/ Multivitamins 10 ml/Chromium / Copper/Manganese/ Seleni/Zn 1 ml/ Total Parenteral Nutrition/Amino Acids/ Dextrose/ Fat Emulsion Intravenous 1,512 ml @ 63 mls/hr TPN CONT IV Last administered on 05/18/17 22:26; Start 05/18/17 at 22:00; Stop 05/19/17 at 21 :59; Status DC Sodium Chloride 90 meq/Potassium Chloride 50 meq/ Potassium Phosphate 13.6 mmol/ Magnesium Sulfate 10 meq/ Calcium Gluconate 10 meq/ Multivitamins 10 ml/Chromium / Copper/Manganese/ Seleni/Zn 1 ml/ Total Parenteral Nutrition/Amino Acids/ Dextrose/ Fat Emulsion Intravenous 1,512 ml @ 63 mls/hr TPN CONT IV Last administered on 05/19/17 22:00; Start 05/19/17 at 22:00; Stop 05/20/17 at 21 :59; Status DC Tamsulosin HCl (Flomax) 0.4 mg QHS PO Last administered on 05/26/17 21:27; Start 05/19/17 at 21:00 Sodium Chloride 90 meq/Potassium Chloride 50 meq/ Potassium Phosphate 13.6 mmol/ Magnesium Sulfate 10 meq/ Calcium Gluconate 10 meq/ Multivitamins 10 ml/Chromium / Copper/Manganese/ Seleni/Zn 1 ml/ Total Parenteral Nutrition/Amino Acids/ Dextrose/ Fat Emulsion Intravenous 1,512 ml @ 63 mls/hr TPN CONT IV Last administered on 05/20/17 22:49; Start 05/20/17 at 22:00; Stop 05/21/17 at 17 :42; Status DC Sodium Chloride (Saline Mist Nasal) 1 federico PRN Q1HR PRN NS NASAL CONGESTION Last administered on 05/21/17 14:52; Start 05/20/17 at 17:45 Sodium Chloride 90 meq/Potassium Chloride 50 meq/ Potassium Phosphate 13.6 mmol/ Magnesium Sulfate 10 meq/ Calcium Gluconate 5 meq/ Multivitamins 10 ml/Chromium / Copper/Manganese/ Seleni/Zn 1 ml/ Total Parenteral Nutrition/Amino Acids/ Dextrose/ Fat Emulsion Intravenous 1,512 ml @ 63 mls/hr TPN CONT IV ; Start 05/21/17 at 22:00; Stop 05/21/17 at 22:00; Status DC Dextrose/Sodium Chloride 1,000 ml @ 50 mls/hr Q20H IV Last administered on 12:15; Start 05/21/17 at 17:45; Stop 05/27/17 at 12:59; Status DC Furosemide (Lasix) 40 mg DAILY IVP Last administered on 05/27/17 08:48; Start 05/23/17 at 09:00 Fentanyl Citrate (Fentanyl 2ml Vial) 25 mcg PRN Q5MIN PRN IV MILD PAIN; Start 05/25/17 at 07:00; Stop 05/25/17 at 14:58; Status DC Fentanyl Citrate (Fentanyl 2ml Vial) 50 mcg PRN Q5MIN PRN IV MODERATE PAIN; Start 05/25/17 at 07:00; Stop 05/25/17 at 14:58; Status DC Morphine Sulfate 1 mg PRN Q10MIN PRN IV SEVERE PAIN; Start 05/25/17 at 07:00; Stop 05/25/17 at 14:58; Status DC Ringer's Solution 1,000 ml @ 30 mls/hr Q24H IV ; Start 05/25/17 at 07:00; Stop 05/25/17 at 18:59; Status DC Lidocaine HCl (Xylocaine-Mpf 1% Vial) 2 ml PRN 1X PRN ID IV START; Start 05/25 at 07:00; Stop 05/26/17 at 06:59; Status DC Hydromorphone HCl (Dilaudid) 0.5 mg PRN Q10MIN PRN IV SEV PAIN, Second choice; Start 05/25/17 at 07:00; Stop 05/25/17 at 14:58; Status DC Prochlorperazine Edisylate (Compazine) 5 mg PACU PRN PRN IV NAUSEA, MRX1; Start 05/25/17 at 07:00; Stop 05/25/17 at 14:58; Status DC Potassium Chloride 50 ml @ 25 mls/hr 1X ONCE IV Last administered on t 16:31; Start 05/24/17 at 11:30; Stop 05/24/17 at 13:29; Status DC Carbamide Peroxide (Debrox) 5 drop 1X ONCE AD Last administered on 05/25/17t 16:44; Start 05/25/17 at 17:00; Stop 05/25/17 at 17:01; Status DC Zolpidem Tartrate (Ambien) 5 mg PRN QHS PRN PO INSOMNIA, MAY REPEAT IN 1HR Last administered on 05/27/17 00:24; Start 05/27/17 at 00:15 Active Scripts Active Pantoprazole Sodium 40 Mg Tablet.dr 40 Mg PO DAILYAC Reported Divalproex Sodium 500 Mg Tablet.dr 500 Mg PO BID Citalopram Hbr (Citalopram Hydrobromide) 20 Mg Tablet 20 Mg PO DAILY Vitamin D3 (Cholecalciferol (Vitamin D3)) 5,000 Unit Tablet 5,000 Unit PO WEEKLY Vitamin D3 (Cholecalciferol (Vitamin D3)) 5,000 Unit Tablet 5,000 Unit PO DAILY Thera-M (Multivits,Th W-Fe,Other Min) 1 Each Tablet 1 Each PO DAILY Senna (Sennosides) 8.6 Mg Tablet 8.6 Mg PO DAILY Risperidone 0.5 Mg Tablet 0.25 Mg PO BID Tradjenta (Linagliptin) 5 Mg Tablet 5 Mg PO DAILY Olanzapine 5 Mg Tablet 2.5 Mg PO PRN Q2HRS PRN Potassium Chloride 10 Meq Tablet.er 10 Meq PO DAILY Mirtazapine 15 Mg Tablet 15 Mg PO QHS Gabapentin 100 Mg Capsule 200 Mg PO TID Omeprazole 20 Mg Capsule.dr 20 Mg PO PRN Sulfamethoxazole-Tmp Ds Tablet (Sulfamethoxazole/Trimethoprim) 1 Each Tablet 1 Tab PO BID [facility] Rx Capsule (Lactobacillus Casei/Folic Acid) 1 Each Capsule 1 Each PO HS Hydrocodone-Apap 5-325 (Hydrocodone Bit/Acetaminophen) 1 Each Tablet 1-2 Tab PO PRN Q6HRS PRN LAST DOSE GIVEN: DATE: TIME: Colace (Docusate Sodium) 100 Mg Capsule 1 Cap PO BID Vitals/I & O Vital Sign - Last 24 Hours 05/26/17 05/26/17 05/26/17 05/26/17 15:11 19:30 19:34 21:27 Temp 98.8 96.6 98.8 96.6 Pulse 86 100 Resp 18 20 20 B/P (MAP) 99/56 (70) 113/70 (84) Pulse Ox 95 96 O2 Delivery Room Air Room Air Room Air Room Air 05/26/17 05/27/17 05/27/17 05/27/17 23:07 03:07 07:00 08:05 Temp 98.6 97.8 97.7 98.6 97.8 97.7 Pulse 78 78 80 Resp 16 16 16 B/P (MAP) 98/60 (73) 99/55 (70) 105/58 (74) Pulse Ox 93 92 92 O2 Delivery Room Air Room Air Room Air Room Air 05/27/17 05/27/17 08:18 11:01 Temp 97.3 97.3 Pulse 80 Resp 17 B/P (MAP) 108/68 (81) Pulse Ox 92 92 O2 Delivery Room Air Room Air Intake and Output 05/26/17 05/26/17 05/27/17 15:00 23:00 07:00 Intake Total 610 ml Output Total 1800 ml 300 ml 600 ml Balance -1800 ml -300 ml 10 ml Nutrition Consultation Dietary Evaluation: Recommendations by RD: PPN/TPN Comments: REC Low Sodium diet Expected Outcomes/Goals: new goal: to meet > 75% est nutrition needs via po intake - met, goal ongoing Interpretation of weight loss: >1-2% in 1 week Malnutrition Findings: Food and Nutrition Intake (Sev: <50% est energy req 5days Weight Status: Overweight KATJA GODINEZ MD May 27, 2017 13:57
[2017-05-27 15:10] VITALS: BP 104/64
[2017-05-27 19:00] VITALS: BP 104/67
[2017-05-27] MEDS: TAMSULOSIN 0.4 MG CAP.ER.24H. PO SCH (20:22)
[2017-05-27 23:00] VITALS: BP 89/53
[2017-05-28] MEDS: ZOLPIDEM 5 MG TABLET. PO PRN ×2 (02:17→23:49)
[2017-05-28 02:47] VITALS: BP 102/68
[2017-05-28 07:00] VITALS: BP 108/64
[2017-05-28] MEDS: DOCUSATE SODIUM 100 MG CAPSULE. PO SCH ×2 (08:22→20:54)
[2017-05-28] MEDS: PANTOPRAZOLE 40 MG TABLET.DR. PO SCH (08:22)
[2017-05-28] MEDS: LACTOBACILLUS RHAMNOSUS GG 1 CAPSULE. PO SCH ×2 (08:22→20:54)
[2017-05-28] MEDS: FUROSEMIDE 40 MG/4 ML VIAL. IVP SCH (08:23)
[2017-05-28] MEDS: IPRATRPIUM/ALBUTEROL 0.5/2.5MG 3 ML NEBU. NEB SCH ×4 (08:49→20:16)
--- NOTE | 2017-05-28 10:27 | PDOC ---
PROGRESS NOTES Chief Complaint Chief Complaint Jaundice ASSESSMENT AND PLAN: 1. Choledocholithiasis: s/p ERCP 05/10 with CBD stone removal and stent placement. removal of obstructed stent on 05/24. prior biliary obstruction with stones, s/p cholecystectomy and sphincterectomy 08/2015 2. post ERCP pancreatitis: resolved 3. obstructive hepatitis: very slow improvement in LFTs, eileen bili. plans for Ursodiol later 4. Hypoalbuminemia: 5. 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 CAD: no sx. 7. HTN: well controlled 8. Fluid overload: 2/2 copious IVF during admission, very low albumin. 9. PNA: ?aspir. completed levaquin x10d, 9. Dry nose: prob 2/2 NC O2. saline nasal spray History of Present Illness History of Present Illness still jaundiced but less than on admission TB and albumin and lFTS stable high GI has cleared to dc home ID has cleared to go home PT initially refused SNU but now agreeable to SNU hence stayed over the weekend Plans of ursodiol as OP by GI Patient concerned about not getting blood drawn past 2 days I did print him out copies of his CMP and explained his stable numbers HE requests one last blood draw tmr before he discharges PLAN: CBC, CMP tmr SNU tmr when bed avail - ruperto on case Vitals Vitals Vital Signs Date Time Temp Pulse Resp B/P (MAP) Pulse Ox O2 Delivery O2 Flow Rate FiO2 05/28/17 08:50 95 Room Air 05/28/17 07:00 97.5 77 18 108/64 (79) 97.5 Physical Exam General: Alert, Oriented X3, Cooperative, No acute distress, mild distress Heart: Regular rate Lungs: Clear Abdomen: Normal bowel sounds, Soft, Other (obese, anacerca) Extremities: No edema Skin: No rashes, Other (jaundiced) Review of Systems Review of Systems jaundiced, no abd pain,emesis, cp or soa Assessment and Plan Assessmemt and Plan Problems Medical Problems: (1) Jaundice Status: Acute (2) Liver failure Status: Acute Problems: Comment Review of Relevant I have reviewed the following items jadon (where applicable) has been applied. Labs Microbiology 05/09/17 Blood Culture - Final, Complete NO GROWTH AFTER 5 DAYS 05/19/17 Urine Culture - Final, Complete 05/19/17 Urine Culture Result 1 (CHELE) - Final, Complete Medications Current Medications Docusate Sodium (Colace) 100 mg BID PO Last administered on 05/28/17 08:22; Start 05/09/17 at 21:00 Acetaminophen/ Hydrocodone Bitart (Lortab 5/325) 1 tab PRN Q6HRS PRN PO PAIN; Start 05/09/17 at 14:15; Status Cancel Pantoprazole Sodium (Protonix) 40 mg DAILYAC PO ; Start 05/09/17 at 14:30; Stop 05/11/17 at 07:46; Status DC Diphenhydramine HCl (Benadryl) 25 mg PRN QHS PRN PO INSOMNIA Last administered on 05/14/17 22:07; Start 05/09/17 at 14:15 Acetaminophen/ Hydrocodone Bitart (Lortab 5/325) 1 tab PRN Q4HRS PRN PO MODERATE - SEVERE PAIN Last administered on 05/25/17 10:08; Start 05/09/17 at 14:15 Ondansetron HCl (Zofran) 4 mg PRN Q6HRS PRN IV NAUSEA/VOMITING; Start 05/09/17 at 14:15; Stop 05/10/17 at 16:18; Status DC Levofloxacin/ Dextrose 100 ml @ 100 mls/hr Q24H IV Last administered on 16:45; Start 05/09/17 at 16:00; Stop 05/10/17 at 10:51; Status DC Acetaminophen (Tylenol) 650 mg PRN Q6HRS PRN PO FEVER; Start 05/10/17 at 12:45 Ondansetron HCl (Zofran) 4 mg PRN Q6HRS PRN IV NAUSEA/VOMITING; Start 05/10/17 at 12:45 Morphine Sulfate 2 mg PRN Q2HR PRN IV PAIN Last administered on 05/16/17 23: 57; Start 05/10/17 at 12:45; Stop 05/18/17 at 17:46; Status DC Tramadol HCl (Ultram) 50 mg PRN Q6HRS PRN PO MILD PAIN Last administered on 13:22; Start 05/10/17 at 12:45 Hydralazine HCl (Apresoline Inj) 10 mg PRN Q4HRS PRN IVP ELEVATED BP, SEE COMMENTS; Start 05/10/17 at 12:45 Docusate Sodium (Colace) 100 mg PRN DAILY PRN PO CONSTIPATION; Start 05/10/17 at 12:45; Stop 05/18/17 at 17:46; Status DC Enoxaparin Sodium (Lovenox 40mg Syringe) 40 mg Q24H SQ Last administered on 12:14; Start 05/10/17 at 13:00; Stop 05/27/17 at 12:59; Status DC Iohexol (Omnipaque 300 Mg/ml) 100 ml STK-MED ONCE .ROUTE ; Start 05/10/17 at 14: 43; Stop 05/10/17 at 14:44; Status DC Ringer's Solution 1,000 ml @ 75 mls/hr 1X ONCE IV Last administered on 16:05; Start 05/10/17 at 16:15; Stop 05/11/17 at 05:34; Status DC Propofol 20 ml @ As Directed STK-MED ONCE IV ; Start 05/10/17 at 16:39; Stop at 16:40; Status DC Succinylcholine Chloride (Anectine) 200 mg STK-MED ONCE .ROUTE ; Start 05/10/17 at 16:39; Stop 05/10/17 at 16:40; Status DC Lidocaine HCl (Lidocaine Pf 2% Vial) 5 ml STK-MED ONCE .ROUTE ; Start 05/10/17 at 16:39; Stop 05/10/17 at 16:40; Status DC Phenylephrine HCl (Jeffrey-Synephrine Inj) 10 mg STK-MED ONCE .ROUTE ; Start at 16:41; Stop 05/10/17 at 16:42; Status DC Levofloxacin/ Dextrose 100 ml @ As Directed STK-MED ONCE IV ; Start 05/10/17 at 17:44; Stop 05/10/17 at 17:45; Status DC Lidocaine HCl (Lidocaine Pf 2% Vial) 5 ml STK-MED ONCE .ROUTE ; Start 05/10/17 at 18:57; Stop 05/10/17 at 18:58; Status DC Iohexol (Omnipaque 300 Mg/ml) 100 ml STK-MED ONCE INT CAT Last administered on 05/10/17 18:58; Start 05/10/17 at 18:58; Stop 05/10/17 at 19:00; Status DC Levofloxacin/ Dextrose 100 ml @ 100 mls/hr Q24H IV Last administered on 09:20; Start 05/11/17 at 08:00; Stop 05/12/17 at 19:03; Status DC Simethicone (Gas-X) 80 mg PRN AFTMEALHC PRN PO GAS / BLOATING Last administered on 05/20/17 20:47; Start 05/11/17 at 02:45 Morphine Sulfate 4 mg PRN Q2HR PRN IV SEVERE PAIN Last administered on 19:41; Start 05/11/17 at 06:15; Stop 05/16/17 at 21:36; Status DC Ketorolac Tromethamine (Toradol) 30 mg 1X ONCE IV Last administered on 07:57; Start 05/11/17 at 08:00; Stop 05/11/17 at 08:01; Status DC Sodium Chloride 1,000 ml @ 50 mls/hr Q20H IV Last administered on 05/15/17 13:42; Start 05/11/17 at 08:00; Stop 05/15/17 at 19:32; Status DC Pantoprazole Sodium (Protonix Vial) 40 mg DAILYAC IVP Last administered on 09:01; Start 05/11/17 at 08:00; Stop 05/15/17 at 19:15; Status DC Amino Acids/ Glycerin/ Electrolytes 1,000 ml @ 80 mls/hr [id number] IV Last administered on 05/18/17 11:29; Start 05/11/17 at 12:00; Stop 05/18/17 at 17: 46; Status DC Ketorolac Tromethamine (Toradol) 30 mg PRN Q6HRS PRN IV PAIN Last administered on 05/12/17 03:11; Start 05/11/17 at 12:00; Stop 05/15/17 at 10:00; Status DC Levofloxacin/ Dextrose 100 ml @ 100 mls/hr Q24H IV ; Start 05/11/17 at 18:00; Status Cancel Albuterol Sulfate (Ventolin Neb Soln) 2.5 mg PRN Q4HRS PRN NEB SHORTNESS OF BREATH Last administered on 05/18/17 09:21; Start 05/12/17 at 14:30 Levofloxacin (Levaquin) 500 mg DAILY PO Last administered on 05/21/17 08:13; Start 05/13/17 at 09:00; Stop 05/21/17 at 17:49; Status DC Lactobacillus Rhamnosus (Culturelle) 1 cap BID PO Last administered on 08:22; Start 05/12/17 at 21:00 Pneumococcal Polyvalent Vaccine (Do NOT chart on this placeholder) 1 each PRN DAILY PRN MC LAST DATE UNKNOWN; Start 05/14/17 at 03:30; Status Cancel Pneumococcal Polyvalent Vaccine (Pneumovax 23) 0.5 ml ONCE ONCE VAX IM ; Start 05/16/17 at 09:00; Stop 05/16/17 at 09:01; Status DC Furosemide (Lasix) 20 mg DAILY PO Last administered on 05/22/17 08:51; Start 05/15/17 at 17:45; Stop 05/22/17 at 17:47; Status DC Pantoprazole Sodium (Protonix) 40 mg DAILYAC PO Last administered on 08:22; Start 05/16/17 at 07:30 Polyethylene Glycol (miraLAX PACKET) 17 gm PRN BID PRN PO CONSTIPATION Last administered on 05/15/17 22:41; Start 05/15/17 at 19:30 Furosemide (Lasix) 20 mg 1X ONCE IVP Last administered on 05/15/17 22:42; Start 05/15/17 at 19:30; Stop 05/15/17 at 19:34; Status DC Iohexol (Omnipaque 300 Mg/ml) 30 ml 1X ONCE PO ; Start 05/16/17 at 09:30; Stop 05/16/17 at 09:32; Status DC Iohexol (Omnipaque 240 Mg/ml) 75 ml 1X ONCE IV ; Start 05/16/17 at 09:30; Stop 05/16/17 at 09:32; Status DC Info (Do NOT chart on this entry -- for MONITORING) 1 each PRN DAILY PRN MC SEE COMMENTS; Start 05/16/17 at 09:45; Stop 05/18/17 at 09:44; Status DC Iohexol (Omnipaque 300 Mg/ml) 75 ml 1X ONCE IV ; Start 05/16/17 at 09:45; Stop 05/16/17 at 09:48; Status DC Info (Do NOT chart on this entry -- for MONITORING) 1 each PRN DAILY PRN MC SEE COMMENTS; Start 05/16/17 at 10:00; Stop 05/18/17 at 09:59; Status DC Albuterol/ Ipratropium (Duoneb) 3 ml RTQID NEB Last administered on 05/28/17 08:49; Start 05/17/17 at 08:00 Info 1 each PRN DAILY PRN MC SEE COMMENTS Last administered on 05/21/17 12:57 ; Start 05/17/17 at 23:15; Stop 05/21/17 at 17:47; Status DC Sodium Chloride 90 meq/Potassium Chloride 50 meq/ Potassium Phosphate 13.6 mmol/ Magnesium Sulfate 10 meq/ Calcium Gluconate 10 meq/ Multivitamins 10 ml/Chromium / Copper/Manganese/ Seleni/Zn 1 ml/ Total Parenteral Nutrition/Amino Acids/ Dextrose/ Fat Emulsion Intravenous 1,512 ml @ 63 mls/hr TPN CONT IV ; Start 05/18/17 at 22:00; Stop 05/18/17 at 22:00; Status DC Sodium Chloride 90 meq/Potassium Chloride 50 meq/ Potassium Phosphate 13.6 mmol/ Magnesium Sulfate 10 meq/ Calcium Gluconate 10 meq/ Multivitamins 10 ml/Chromium / Copper/Manganese/ Seleni/Zn 1 ml/ Total Parenteral Nutrition/Amino Acids/ Dextrose/ Fat Emulsion Intravenous 1,512 ml @ 63 mls/hr TPN CONT IV Last administered on 05/18/17 22:26; Start 05/18/17 at 22:00; Stop 05/19/17 at 21 :59; Status DC Sodium Chloride 90 meq/Potassium Chloride 50 meq/ Potassium Phosphate 13.6 mmol/ Magnesium Sulfate 10 meq/ Calcium Gluconate 10 meq/ Multivitamins 10 ml/Chromium / Copper/Manganese/ Seleni/Zn 1 ml/ Total Parenteral Nutrition/Amino Acids/ Dextrose/ Fat Emulsion Intravenous 1,512 ml @ 63 mls/hr TPN CONT IV Last administered on 05/19/17 22:00; Start 05/19/17 at 22:00; Stop 05/20/17 at 21 :59; Status DC Tamsulosin HCl (Flomax) 0.4 mg QHS PO Last administered on 05/27/17 20:22; Start 05/19/17 at 21:00 Sodium Chloride 90 meq/Potassium Chloride 50 meq/ Potassium Phosphate 13.6 mmol/ Magnesium Sulfate 10 meq/ Calcium Gluconate 10 meq/ Multivitamins 10 ml/Chromium / Copper/Manganese/ Seleni/Zn 1 ml/ Total Parenteral Nutrition/Amino Acids/ Dextrose/ Fat Emulsion Intravenous 1,512 ml @ 63 mls/hr TPN CONT IV Last administered on 05/20/17 22:49; Start 05/20/17 at 22:00; Stop 05/21/17 at 17 :42; Status DC Sodium Chloride (Saline Mist Nasal) 1 federico PRN Q1HR PRN NS NASAL CONGESTION Last administered on 05/21/17 14:52; Start 05/20/17 at 17:45 Sodium Chloride 90 meq/Potassium Chloride 50 meq/ Potassium Phosphate 13.6 mmol/ Magnesium Sulfate 10 meq/ Calcium Gluconate 5 meq/ Multivitamins 10 ml/Chromium / Copper/Manganese/ Seleni/Zn 1 ml/ Total Parenteral Nutrition/Amino Acids/ Dextrose/ Fat Emulsion Intravenous 1,512 ml @ 63 mls/hr TPN CONT IV ; Start 05/21/17 at 22:00; Stop 05/21/17 at 22:00; Status DC Dextrose/Sodium Chloride 1,000 ml @ 50 mls/hr Q20H IV Last administered on 12:15; Start 05/21/17 at 17:45; Stop 05/27/17 at 12:59; Status DC Furosemide (Lasix) 40 mg DAILY IVP Last administered on 05/28/17 08:23; Start 05/23/17 at 09:00 Fentanyl Citrate (Fentanyl 2ml Vial) 25 mcg PRN Q5MIN PRN IV MILD PAIN; Start 05/25/17 at 07:00; Stop 05/25/17 at 14:58; Status DC Fentanyl Citrate (Fentanyl 2ml Vial) 50 mcg PRN Q5MIN PRN IV MODERATE PAIN; Start 05/25/17 at 07:00; Stop 05/25/17 at 14:58; Status DC Morphine Sulfate 1 mg PRN Q10MIN PRN IV SEVERE PAIN; Start 05/25/17 at 07:00; Stop 05/25/17 at 14:58; Status DC Ringer's Solution 1,000 ml @ 30 mls/hr Q24H IV ; Start 05/25/17 at 07:00; Stop 05/25/17 at 18:59; Status DC Lidocaine HCl (Xylocaine-Mpf 1% Vial) 2 ml PRN 1X PRN ID IV START; Start 05/25 at 07:00; Stop 05/26/17 at 06:59; Status DC Hydromorphone HCl (Dilaudid) 0.5 mg PRN Q10MIN PRN IV SEV PAIN, Second choice; Start 05/25/17 at 07:00; Stop 05/25/17 at 14:58; Status DC Prochlorperazine Edisylate (Compazine) 5 mg PACU PRN PRN IV NAUSEA, MRX1; Start 05/25/17 at 07:00; Stop 05/25/17 at 14:58; Status DC Potassium Chloride 50 ml @ 25 mls/hr 1X ONCE IV Last administered on t 16:31; Start 05/24/17 at 11:30; Stop 05/24/17 at 13:29; Status DC Carbamide Peroxide (Debrox) 5 drop 1X ONCE AD Last administered on 05/25/17t 16:44; Start 05/25/17 at 17:00; Stop 05/25/17 at 17:01; Status DC Zolpidem Tartrate (Ambien) 5 mg PRN QHS PRN PO INSOMNIA, MAY REPEAT IN 1HR Last administered on 05/28/17t 02:17; Start 05/27/17 at 00:15 Active Scripts Active Pantoprazole Sodium 40 Mg Tablet. 40 Mg PO DAILYAC Reported Divalproex Sodium 500 Mg Tablet. 500 Mg PO BID Citalopram Hbr (Citalopram Hydrobromide) 20 Mg Tablet 20 Mg PO DAILY Vitamin D3 (Cholecalciferol (Vitamin D3)) 5,000 Unit Tablet 5,000 Unit PO WEEKLY Vitamin D3 (Cholecalciferol (Vitamin D3)) 5,000 Unit Tablet 5,000 Unit PO DAILY Thera-M (Multivits,Th W-Fe,Other Min) 1 Each Tablet 1 Each PO DAILY Senna (Sennosides) 8.6 Mg Tablet 8.6 Mg PO DAILY Risperidone 0.5 Mg Tablet 0.25 Mg PO BID Tradjenta (Linagliptin) 5 Mg Tablet 5 Mg PO DAILY Olanzapine 5 Mg Tablet 2.5 Mg PO PRN Q2HRS PRN Potassium Chloride 10 Meq Tablet.er 10 Meq PO DAILY Mirtazapine 15 Mg Tablet 15 Mg PO QHS Gabapentin 100 Mg Capsule 200 Mg PO TID Omeprazole 20 Mg Capsule.dr 20 Mg PO PRN Sulfamethoxazole-Tmp Ds Tablet (Sulfamethoxazole/Trimethoprim) 1 Each Tablet 1 Tab PO BID [facility] Rx Capsule (Lactobacillus Casei/Folic Acid) 1 Each Capsule 1 Each PO HS Hydrocodone-Apap 5-325 (Hydrocodone Bit/Acetaminophen) 1 Each Tablet 1-2 Tab PO PRN Q6HRS PRN LAST DOSE GIVEN: DATE: TIME: Colace (Docusate Sodium) 100 Mg Capsule 1 Cap PO BID Vitals/I & O Vital Sign - Last 24 Hours 05/27/17 05/27/17 05/27/17 05/27/17 11:01 15:10 19:00 20:00 Temp 97.3 98.2 97.7 97.3 98.2 97.7 Pulse 80 79 73 Resp 17 16 B/P (MAP) 108/68 (81) 104/64 (77) 104/67 (79) Pulse Ox 92 92 92 O2 Delivery Room Air Room Air Room Air Room Air 05/27/17 05/28/17 05/28/17 05/28/17 23:00 02:47 07:00 08:50 Temp 97.9 97.9 97.5 97.9 97.9 97.5 Pulse 83 87 77 Resp 18 18 B/P (MAP) 89/53 (65) 102/68 (79) 108/64 (79) Pulse Ox 96 95 93 95 O2 Delivery Room Air Room Air Room Air Room Air Intake and Output 05/27/17 05/27/17 05/28/17 15:00 23:00 07:00 Intake Total 600 ml 700 ml Output Total 2000 ml 700 ml Balance -1400 ml 0 ml Nutrition Consultation Dietary Evaluation: Recommendations by RD: PPN/TPN Comments: REC Low Sodium diet Expected Outcomes/Goals: new goal: to meet > 75% est nutrition needs via po intake - met, goal ongoing Interpretation of weight loss: >1-2% in 1 week Malnutrition Findings: Food and Nutrition Intake (Sev: <50% est energy req 5days Weight Status: Overweight KATJA GODINEZ MD May 28, 2017 10:27
--- NOTE | 2017-05-28 10:47 | PDOC ---
G I PROGRESS NOTE Subjective Weak, otherwise no complaints. Says eating OK. Thinks to [facility] Monday. Physical Exam Icteric Lungs clear. RRR Abdomen soft, protuberant, non-tender. Review of Relevant I have reviewed the following items jadon (where applicable) has been applied. Labs Microbiology 05/09/17 Blood Culture - Final, Complete NO GROWTH AFTER 5 DAYS 05/19/17 Urine Culture - Final, Complete 05/19/17 Urine Culture Result 1 (CHELE) - Final, Complete Medications Current Medications Docusate Sodium (Colace) 100 mg BID PO Last administered on 05/28/17 08:22; Start 05/09/17 at 21:00 Acetaminophen/ Hydrocodone Bitart (Lortab 5/325) 1 tab PRN Q6HRS PRN PO PAIN; Start 05/09/17 at 14:15; Status Cancel Pantoprazole Sodium (Protonix) 40 mg DAILYAC PO ; Start 05/09/17 at 14:30; Stop 05/11/17 at 07:46; Status DC Diphenhydramine HCl (Benadryl) 25 mg PRN QHS PRN PO INSOMNIA Last administered on 05/14/17 22:07; Start 05/09/17 at 14:15 Acetaminophen/ Hydrocodone Bitart (Lortab 5/325) 1 tab PRN Q4HRS PRN PO MODERATE - SEVERE PAIN Last administered on 05/25/17 10:08; Start 05/09/17 at 14:15 Ondansetron HCl (Zofran) 4 mg PRN Q6HRS PRN IV NAUSEA/VOMITING; Start 05/09/17 at 14:15; Stop 05/10/17 at 16:18; Status DC Levofloxacin/ Dextrose 100 ml @ 100 mls/hr Q24H IV Last administered on 16:45; Start 05/09/17 at 16:00; Stop 05/10/17 at 10:51; Status DC Acetaminophen (Tylenol) 650 mg PRN Q6HRS PRN PO FEVER; Start 05/10/17 at 12:45 Ondansetron HCl (Zofran) 4 mg PRN Q6HRS PRN IV NAUSEA/VOMITING; Start 05/10/17 at 12:45 Morphine Sulfate 2 mg PRN Q2HR PRN IV PAIN Last administered on 05/16/17 23: 57; Start 05/10/17 at 12:45; Stop 05/18/17 at 17:46; Status DC Tramadol HCl (Ultram) 50 mg PRN Q6HRS PRN PO MILD PAIN Last administered on 13:22; Start 05/10/17 at 12:45 Hydralazine HCl (Apresoline Inj) 10 mg PRN Q4HRS PRN IVP ELEVATED BP, SEE COMMENTS; Start 05/10/17 at 12:45 Docusate Sodium (Colace) 100 mg PRN DAILY PRN PO CONSTIPATION; Start 05/10/17 at 12:45; Stop 05/18/17 at 17:46; Status DC Enoxaparin Sodium (Lovenox 40mg Syringe) 40 mg Q24H SQ Last administered on 12:14; Start 05/10/17 at 13:00; Stop 05/27/17 at 12:59; Status DC Iohexol (Omnipaque 300 Mg/ml) 100 ml STK-MED ONCE .ROUTE ; Start 05/10/17 at 14: 43; Stop 05/10/17 at 14:44; Status DC Ringer's Solution 1,000 ml @ 75 mls/hr 1X ONCE IV Last administered on 16:05; Start 05/10/17 at 16:15; Stop 05/11/17 at 05:34; Status DC Propofol 20 ml @ As Directed STK-MED ONCE IV ; Start 05/10/17 at 16:39; Stop at 16:40; Status DC Succinylcholine Chloride (Anectine) 200 mg STK-MED ONCE .ROUTE ; Start 05/10/17 at 16:39; Stop 05/10/17 at 16:40; Status DC Lidocaine HCl (Lidocaine Pf 2% Vial) 5 ml STK-MED ONCE .ROUTE ; Start 05/10/17 at 16:39; Stop 05/10/17 at 16:40; Status DC Phenylephrine HCl (Jeffrey-Synephrine Inj) 10 mg STK-MED ONCE .ROUTE ; Start at 16:41; Stop 05/10/17 at 16:42; Status DC Levofloxacin/ Dextrose 100 ml @ As Directed STK-MED ONCE IV ; Start 05/10/17 at 17:44; Stop 05/10/17 at 17:45; Status DC Lidocaine HCl (Lidocaine Pf 2% Vial) 5 ml STK-MED ONCE .ROUTE ; Start 05/10/17 at 18:57; Stop 05/10/17 at 18:58; Status DC Iohexol (Omnipaque 300 Mg/ml) 100 ml STK-MED ONCE INT CAT Last administered on 05/10/17 18:58; Start 05/10/17 at 18:58; Stop 05/10/17 at 19:00; Status DC Levofloxacin/ Dextrose 100 ml @ 100 mls/hr Q24H IV Last administered on 09:20; Start 05/11/17 at 08:00; Stop 05/12/17 at 19:03; Status DC Simethicone (Gas-X) 80 mg PRN AFTMEALHC PRN PO GAS / BLOATING Last administered on 05/20/17 20:47; Start 05/11/17 at 02:45 Morphine Sulfate 4 mg PRN Q2HR PRN IV SEVERE PAIN Last administered on 19:41; Start 05/11/17 at 06:15; Stop 05/16/17 at 21:36; Status DC Ketorolac Tromethamine (Toradol) 30 mg 1X ONCE IV Last administered on 07:57; Start 05/11/17 at 08:00; Stop 05/11/17 at 08:01; Status DC Sodium Chloride 1,000 ml @ 50 mls/hr Q20H IV Last administered on 05/15/17 13:42; Start 05/11/17 at 08:00; Stop 05/15/17 at 19:32; Status DC Pantoprazole Sodium (Protonix Vial) 40 mg DAILYAC IVP Last administered on 09:01; Start 05/11/17 at 08:00; Stop 05/15/17 at 19:15; Status DC Amino Acids/ Glycerin/ Electrolytes 1,000 ml @ 80 mls/hr [id number] IV Last administered on 05/18/17 11:29; Start 05/11/17 at 12:00; Stop 05/18/17 at 17: 46; Status DC Ketorolac Tromethamine (Toradol) 30 mg PRN Q6HRS PRN IV PAIN Last administered on 05/12/17 03:11; Start 05/11/17 at 12:00; Stop 05/15/17 at 10:00; Status DC Levofloxacin/ Dextrose 100 ml @ 100 mls/hr Q24H IV ; Start 05/11/17 at 18:00; Status Cancel Albuterol Sulfate (Ventolin Neb Soln) 2.5 mg PRN Q4HRS PRN NEB SHORTNESS OF BREATH Last administered on 05/18/17 09:21; Start 05/12/17 at 14:30 Levofloxacin (Levaquin) 500 mg DAILY PO Last administered on 05/21/17 08:13; Start 05/13/17 at 09:00; Stop 05/21/17 at 17:49; Status DC Lactobacillus Rhamnosus (Culturelle) 1 cap BID PO Last administered on 08:22; Start 05/12/17 at 21:00 Pneumococcal Polyvalent Vaccine (Do NOT chart on this placeholder) 1 each PRN DAILY PRN MC LAST DATE UNKNOWN; Start 05/14/17 at 03:30; Status Cancel Pneumococcal Polyvalent Vaccine (Pneumovax 23) 0.5 ml ONCE ONCE VAX IM ; Start 05/16/17 at 09:00; Stop 05/16/17 at 09:01; Status DC Furosemide (Lasix) 20 mg DAILY PO Last administered on 05/22/17 08:51; Start 05/15/17 at 17:45; Stop 05/22/17 at 17:47; Status DC Pantoprazole Sodium (Protonix) 40 mg DAILYAC PO Last administered on 08:22; Start 05/16/17 at 07:30 Polyethylene Glycol (miraLAX PACKET) 17 gm PRN BID PRN PO CONSTIPATION Last administered on 05/15/17 22:41; Start 05/15/17 at 19:30 Furosemide (Lasix) 20 mg 1X ONCE IVP Last administered on 05/15/17 22:42; Start 05/15/17 at 19:30; Stop 05/15/17 at 19:34; Status DC Iohexol (Omnipaque 300 Mg/ml) 30 ml 1X ONCE PO ; Start 05/16/17 at 09:30; Stop 05/16/17 at 09:32; Status DC Iohexol (Omnipaque 240 Mg/ml) 75 ml 1X ONCE IV ; Start 05/16/17 at 09:30; Stop 05/16/17 at 09:32; Status DC Info (Do NOT chart on this entry -- for MONITORING) 1 each PRN DAILY PRN MC SEE COMMENTS; Start 05/16/17 at 09:45; Stop 05/18/17 at 09:44; Status DC Iohexol (Omnipaque 300 Mg/ml) 75 ml 1X ONCE IV ; Start 05/16/17 at 09:45; Stop 05/16/17 at 09:48; Status DC Info (Do NOT chart on this entry -- for MONITORING) 1 each PRN DAILY PRN MC SEE COMMENTS; Start 05/16/17 at 10:00; Stop 05/18/17 at 09:59; Status DC Albuterol/ Ipratropium (Duoneb) 3 ml RTQID NEB Last administered on 05/28/17 08:49; Start 05/17/17 at 08:00 Info 1 each PRN DAILY PRN MC SEE COMMENTS Last administered on 05/21/17 12:57 ; Start 05/17/17 at 23:15; Stop 05/21/17 at 17:47; Status DC Sodium Chloride 90 meq/Potassium Chloride 50 meq/ Potassium Phosphate 13.6 mmol/ Magnesium Sulfate 10 meq/ Calcium Gluconate 10 meq/ Multivitamins 10 ml/Chromium / Copper/Manganese/ Seleni/Zn 1 ml/ Total Parenteral Nutrition/Amino Acids/ Dextrose/ Fat Emulsion Intravenous 1,512 ml @ 63 mls/hr TPN CONT IV ; Start 05/18/17 at 22:00; Stop 05/18/17 at 22:00; Status DC Sodium Chloride 90 meq/Potassium Chloride 50 meq/ Potassium Phosphate 13.6 mmol/ Magnesium Sulfate 10 meq/ Calcium Gluconate 10 meq/ Multivitamins 10 ml/Chromium / Copper/Manganese/ Seleni/Zn 1 ml/ Total Parenteral Nutrition/Amino Acids/ Dextrose/ Fat Emulsion Intravenous 1,512 ml @ 63 mls/hr TPN CONT IV Last administered on 05/18/17t 22:26; Start 05/18/17 at 22:00; Stop 05/19/17 at 21 :59; Status DC Sodium Chloride 90 meq/Potassium Chloride 50 meq/ Potassium Phosphate 13.6 mmol/ Magnesium Sulfate 10 meq/ Calcium Gluconate 10 meq/ Multivitamins 10 ml/Chromium / Copper/Manganese/ Seleni/Zn 1 ml/ Total Parenteral Nutrition/Amino Acids/ Dextrose/ Fat Emulsion Intravenous 1,512 ml @ 63 mls/hr TPN CONT IV Last administered on 05/19/17 22:00; Start 05/19/17 at 22:00; Stop 05/20/17 at 21 :59; Status DC Tamsulosin HCl (Flomax) 0.4 mg QHS PO Last administered on 05/27/17 20:22; Start 05/19/17 at 21:00 Sodium Chloride 90 meq/Potassium Chloride 50 meq/ Potassium Phosphate 13.6 mmol/ Magnesium Sulfate 10 meq/ Calcium Gluconate 10 meq/ Multivitamins 10 ml/Chromium / Copper/Manganese/ Seleni/Zn 1 ml/ Total Parenteral Nutrition/Amino Acids/ Dextrose/ Fat Emulsion Intravenous 1,512 ml @ 63 mls/hr TPN CONT IV Last administered on 05/20/17 22:49; Start 05/20/17 at 22:00; Stop 05/21/17 at 17 :42; Status DC Sodium Chloride (Saline Mist Nasal) 1 federico PRN Q1HR PRN NS NASAL CONGESTION Last administered on 05/21/17 14:52; Start 05/20/17 at 17:45 Sodium Chloride 90 meq/Potassium Chloride 50 meq/ Potassium Phosphate 13.6 mmol/ Magnesium Sulfate 10 meq/ Calcium Gluconate 5 meq/ Multivitamins 10 ml/Chromium / Copper/Manganese/ Seleni/Zn 1 ml/ Total Parenteral Nutrition/Amino Acids/ Dextrose/ Fat Emulsion Intravenous 1,512 ml @ 63 mls/hr TPN CONT IV ; Start 05/21/17 at 22:00; Stop 05/21/17 at 22:00; Status DC Dextrose/Sodium Chloride 1,000 ml @ 50 mls/hr Q20H IV Last administered on 12:15; Start 05/21/17 at 17:45; Stop 05/27/17 at 12:59; Status DC Furosemide (Lasix) 40 mg DAILY IVP Last administered on 05/28/17 08:23; Start 05/23/17 at 09:00 Fentanyl Citrate (Fentanyl 2ml Vial) 25 mcg PRN Q5MIN PRN IV MILD PAIN; Start 05/25/17 at 07:00; Stop 05/25/17 at 14:58; Status DC Fentanyl Citrate (Fentanyl 2ml Vial) 50 mcg PRN Q5MIN PRN IV MODERATE PAIN; Start 05/25/17 at 07:00; Stop 05/25/17 at 14:58; Status DC Morphine Sulfate 1 mg PRN Q10MIN PRN IV SEVERE PAIN; Start 05/25/17 at 07:00; Stop 05/25/17 at 14:58; Status DC Ringer's Solution 1,000 ml @ 30 mls/hr Q24H IV ; Start 05/25/17 at 07:00; Stop 05/25/17 at 18:59; Status DC Lidocaine HCl (Xylocaine-Mpf 1% Vial) 2 ml PRN 1X PRN ID IV START; Start 05/25 at 07:00; Stop 05/26/17 at 06:59; Status DC Hydromorphone HCl (Dilaudid) 0.5 mg PRN Q10MIN PRN IV SEV PAIN, Second choice; Start 05/25/17 at 07:00; Stop 05/25/17 at 14:58; Status DC Prochlorperazine Edisylate (Compazine) 5 mg PACU PRN PRN IV NAUSEA, MRX1; Start 05/25/17 at 07:00; Stop 05/25/17 at 14:58; Status DC Potassium Chloride 50 ml @ 25 mls/hr 1X ONCE IV Last administered on 16:31; Start 05/24/17 at 11:30; Stop 05/24/17 at 13:29; Status DC Carbamide Peroxide (Debrox) 5 drop 1X ONCE AD Last administered on 05/25/17t 16:44; Start 05/25/17 at 17:00; Stop 05/25/17 at 17:01; Status DC Zolpidem Tartrate (Ambien) 5 mg PRN QHS PRN PO INSOMNIA, MAY REPEAT IN 1HR Last administered on 05/28/17 02:17; Start 05/27/17 at 00:15 Active Scripts Active Pantoprazole Sodium 40 Mg Tablet.dr 40 Mg PO DAILYAC Reported Divalproex Sodium 500 Mg Tablet.dr 500 Mg PO BID Citalopram Hbr (Citalopram Hydrobromide) 20 Mg Tablet 20 Mg PO DAILY Vitamin D3 (Cholecalciferol (Vitamin D3)) 5,000 Unit Tablet 5,000 Unit PO WEEKLY Vitamin D3 (Cholecalciferol (Vitamin D3)) 5,000 Unit Tablet 5,000 Unit PO DAILY Thera-M (Multivits, W-Fe,Other Min) 1 Each Tablet 1 Each PO DAILY Senna (Sennosides) 8.6 Mg Tablet 8.6 Mg PO DAILY Risperidone 0.5 Mg Tablet 0.25 Mg PO BID Tradjenta (Linagliptin) 5 Mg Tablet 5 Mg PO DAILY Olanzapine 5 Mg Tablet 2.5 Mg PO PRN Q2HRS PRN Potassium Chloride 10 Meq Tablet.er 10 Meq PO DAILY Mirtazapine 15 Mg Tablet 15 Mg PO QHS Gabapentin 100 Mg Capsule 200 Mg PO TID Omeprazole 20 Mg Capsule.dr 20 Mg PO PRN Sulfamethoxazole-Tmp Ds Tablet (Sulfamethoxazole/Trimethoprim) 1 Each Tablet 1 Tab PO BID Restora Rx Capsule (Lactobacillus Casei/Folic Acid) 1 Each Capsule 1 Each PO HS Hydrocodone-Apap 5-325 (Hydrocodone Bit/Acetaminophen) 1 Each Tablet 1-2 Tab PO PRN Q6HRS PRN LAST DOSE GIVEN: DATE: TIME: Colace (Docusate Sodium) 100 Mg Capsule 1 Cap PO BID Vitals/I & O Vital Sign - Last 24 Hours 05/27/17 05/27/17 05/27/17 05/27/17 11:01 15:10 19:00 20:00 Temp 97.3 98.2 97.7 97.3 98.2 97.7 Pulse 80 79 73 Resp 16 B/P (MAP) 108/68 (81) 104/64 (77) 104/67 (79) Pulse Ox 92 92 92 O2 Delivery Room Air Room Air Room Air Room Air 05/27/17 05/28/17 05/28/17 05/28/17 23:00 02:47 07:00 08:50 Temp 97.9 97.9 97.5 97.9 97.9 97.5 Pulse 83 87 77 Resp 18 18 B/P (MAP) 89/53 (65) 102/68 (79) 108/64 (79) Pulse Ox 96 95 93 95 O2 Delivery Room Air Room Air Room Air Room Air Intake and Output 11/25/17 11/25/17 11/26/17 15:00 23:00 07:00 Intake Total 600 ml 700 ml Output Total 2000 ml 700 ml Balance -1400 ml 0 ml Problem List Problems Medical Problems: (1) Jaundice Status: Acute (2) Liver failure Status: Acute Assessment Choledocholithiasis, resolved for time being. 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 Plan of Care: Continue current Tx, Mgmt PHONG MORALES MD May 28, 2017 10:47
[2017-05-28 10:49] VITALS: BP 101/69
[2017-05-28 15:00] VITALS: BP 90/55
[2017-05-28 19:00] VITALS: BP 94/56
[2017-05-28] MEDS: TAMSULOSIN 0.4 MG CAP.ER.24H. PO SCH (20:54)
[2017-05-28] MEDS: HYDROcodone/APAP 5/325MG 1 TAB TABLET PO PRN (22:40)
[2017-05-28 23:00] VITALS: BP 103/60
[2017-05-29 03:56] VITALS: BP 107/54
[2017-05-29 07:00] VITALS: BP 99/65
[2017-05-29] MEDS: IPRATRPIUM/ALBUTEROL 0.5/2.5MG 3 ML NEBU. NEB SCH ×4 (08:21→19:56)
[2017-05-29] MEDS: LACTOBACILLUS RHAMNOSUS GG 1 CAPSULE. PO SCH ×2 (08:26→21:25)
[2017-05-29] MEDS: HYDROcodone/APAP 5/325MG 1 TAB TABLET PO PRN (08:27)
[2017-05-29] MEDS: DOCUSATE SODIUM 100 MG CAPSULE. PO SCH ×2 (08:27→21:25)
[2017-05-29] MEDS: PANTOPRAZOLE 40 MG TABLET.DR. PO SCH (08:27)
[2017-05-29] MEDS: FUROSEMIDE 40 MG/4 ML VIAL. IVP SCH (08:27)
--- NOTE | 2017-05-29 09:49 | PDOC ---
PROGRESS NOTES Chief Complaint Chief Complaint Jaundice 1. Choledocholithiasis: s/p ERCP 05/10 with CBD stone removal and stent placement. removal of obstructed stent on 05/24. prior biliary obstruction with stones, s/p cholecystectomy and sphincterectomy 08/2015 2. post ERCP pancreatitis: resolved 3. obstructive hepatitis: very slow improvement in LFTs, eileen bili. plans for Ursodiol later 4. Hypoalbuminemia: malnutrition on admit 5. 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 CAD: no sx. 7. HTN: well controlled 8. Fluid overload: 2/2 copious IVF during admission, very low albumin. 9. PNA: s/p levaquin x10d, 9. left knee pain, injury from awkward movement last night, has prior knee injection with good success, 10, weakness and debility, need rehab History of Present Illness History of Present Illness still jaundiced but improving TB and albumin and lFTS stable high knee pain overnight, consult physiatry cont stool softeners plan SNU SNU when bed avail - S Vitals Vitals Vital Signs Date Time Temp Pulse Resp B/P (MAP) Pulse Ox O2 Delivery O2 Flow Rate FiO2 05/29/17 08:27 93 Room Air 2.0 05/29/17 07:00 97.7 61 20 99/65 (76) 97.7 Physical Exam General: Alert, Oriented X3, Cooperative, No acute distress, mild distress Heart: Regular rate Lungs: Clear Abdomen: Normal bowel sounds, Soft, Other (obese, anacerca) Extremities: No edema Skin: No rashes, Other (jaundiced) Review of Systems Review of Systems knee pain weakness Assessment and Plan Assessmemt and Plan Problems Medical Problems: (1) Jaundice Status: Acute (2) Liver failure Status: Acute Problems: Comment Review of Relevant I have reviewed the following items jadon (where applicable) has been applied. Labs Microbiology 05/09/17 Blood Culture - Final, Complete NO GROWTH AFTER 5 DAYS 05/19/17 Urine Culture - Final, Complete 05/19/17 Urine Culture Result 1 (CHELE) - Final, Complete Medications Current Medications Docusate Sodium (Colace) 100 mg BID PO Last administered on 05/29/17t 08:27; Start 05/09/17 at 21:00 Acetaminophen/ Hydrocodone Bitart (Lortab 5/325) 1 tab PRN Q6HRS PRN PO PAIN; Start 05/09/17 at 14:15; Status Cancel Pantoprazole Sodium (Protonix) 40 mg DAILYAC PO ; Start 05/09/17 at 14:30; Stop 05/11/17 at 07:46; Status DC Diphenhydramine HCl (Benadryl) 25 mg PRN QHS PRN PO INSOMNIA Last administered on 05/14/17 22:07; Start 05/09/17 at 14:15 Acetaminophen/ Hydrocodone Bitart (Lortab 5/325) 1 tab PRN Q4HRS PRN PO MODERATE - SEVERE PAIN Last administered on 05/29/17 08:27; Start 05/09/17 at 14:15 Ondansetron HCl (Zofran) 4 mg PRN Q6HRS PRN IV NAUSEA/VOMITING; Start 05/09/17 at 14:15; Stop 05/10/17 at 16:18; Status DC Levofloxacin/ Dextrose 100 ml @ 100 mls/hr Q24H IV Last administered on 16:45; Start 05/09/17 at 16:00; Stop 05/10/17 at 10:51; Status DC Acetaminophen (Tylenol) 650 mg PRN Q6HRS PRN PO FEVER; Start 05/10/17 at 12:45 Ondansetron HCl (Zofran) 4 mg PRN Q6HRS PRN IV NAUSEA/VOMITING; Start 05/10/17 at 12:45 Morphine Sulfate 2 mg PRN Q2HR PRN IV PAIN Last administered on 05/16/17 23: 57; Start 05/10/17 at 12:45; Stop 05/18/17 at 17:46; Status DC Tramadol HCl (Ultram) 50 mg PRN Q6HRS PRN PO MILD PAIN Last administered on 13:22; Start 05/10/17 at 12:45 Hydralazine HCl (Apresoline Inj) 10 mg PRN Q4HRS PRN IVP ELEVATED BP, SEE COMMENTS; Start 05/10/17 at 12:45 Docusate Sodium (Colace) 100 mg PRN DAILY PRN PO CONSTIPATION; Start 05/10/17 at 12:45; Stop 05/18/17 at 17:46; Status DC Enoxaparin Sodium (Lovenox 40mg Syringe) 40 mg Q24H SQ Last administered on 12:14; Start 05/10/17 at 13:00; Stop 05/27/17 at 12:59; Status DC Iohexol (Omnipaque 300 Mg/ml) 100 ml STK-MED ONCE .ROUTE ; Start 05/10/17 at 14: 43; Stop 05/10/17 at 14:44; Status DC Ringer's Solution 1,000 ml @ 75 mls/hr 1X ONCE IV Last administered on 16:05; Start 05/10/17 at 16:15; Stop 05/11/17 at 05:34; Status DC Propofol 20 ml @ As Directed STK-MED ONCE IV ; Start 05/10/17 at 16:39; Stop at 16:40; Status DC Succinylcholine Chloride (Anectine) 200 mg STK-MED ONCE .ROUTE ; Start 05/10/17 at 16:39; Stop 05/10/17 at 16:40; Status DC Lidocaine HCl (Lidocaine Pf 2% Vial) 5 ml STK-MED ONCE .ROUTE ; Start 05/10/17 at 16:39; Stop 05/10/17 at 16:40; Status DC Phenylephrine HCl (Jeffrey-Synephrine Inj) 10 mg STK-MED ONCE .ROUTE ; Start at 16:41; Stop 05/10/17 at 16:42; Status DC Levofloxacin/ Dextrose 100 ml @ As Directed STK-MED ONCE IV ; Start 05/10/17 at 17:44; Stop 05/10/17 at 17:45; Status DC Lidocaine HCl (Lidocaine Pf 2% Vial) 5 ml STK-MED ONCE .ROUTE ; Start 05/10/17 at 18:57; Stop 05/10/17 at 18:58; Status DC Iohexol (Omnipaque 300 Mg/ml) 100 ml STK-MED ONCE INT CAT Last administered on 05/10/17 18:58; Start 05/10/17 at 18:58; Stop 05/10/17 at 19:00; Status DC Levofloxacin/ Dextrose 100 ml @ 100 mls/hr Q24H IV Last administered on 09:20; Start 05/11/17 at 08:00; Stop 05/12/17 at 19:03; Status DC Simethicone (Gas-X) 80 mg PRN AFTMEALHC PRN PO GAS / BLOATING Last administered on 05/20/17 20:47; Start 05/11/17 at 02:45 Morphine Sulfate 4 mg PRN Q2HR PRN IV SEVERE PAIN Last administered on 19:41; Start 05/11/17 at 06:15; Stop 05/16/17 at 21:36; Status DC Ketorolac Tromethamine (Toradol) 30 mg 1X ONCE IV Last administered on 07:57; Start 05/11/17 at 08:00; Stop 05/11/17 at 08:01; Status DC Sodium Chloride 1,000 ml @ 50 mls/hr Q20H IV Last administered on 05/15/17 13:42; Start 05/11/17 at 08:00; Stop 05/15/17 at 19:32; Status DC Pantoprazole Sodium (Protonix Vial) 40 mg DAILYAC IVP Last administered on 09:01; Start 05/11/17 at 08:00; Stop 05/15/17 at 19:15; Status DC Amino Acids/ Glycerin/ Electrolytes 1,000 ml @ 80 mls/hr [id number] IV Last administered on 05/18/17 11:29; Start 05/11/17 at 12:00; Stop 05/18/17 at 17: 46; Status DC Ketorolac Tromethamine (Toradol) 30 mg PRN Q6HRS PRN IV PAIN Last administered on 05/12/17 03:11; Start 05/11/17 at 12:00; Stop 05/15/17 at 10:00; Status DC Levofloxacin/ Dextrose 100 ml @ 100 mls/hr Q24H IV ; Start 05/11/17 at 18:00; Status Cancel Albuterol Sulfate (Ventolin Neb Soln) 2.5 mg PRN Q4HRS PRN NEB SHORTNESS OF BREATH Last administered on 05/18/17 09:21; Start 05/12/17 at 14:30 Levofloxacin (Levaquin) 500 mg DAILY PO Last administered on 05/21/17 08:13; Start 05/13/17 at 09:00; Stop 05/21/17 at 17:49; Status DC Lactobacillus Rhamnosus (Culturelle) 1 cap BID PO Last administered on 08:26; Start 05/12/17 at 21:00 Pneumococcal Polyvalent Vaccine (Do NOT chart on this placeholder) 1 each PRN DAILY PRN MC LAST DATE UNKNOWN; Start 05/14/17 at 03:30; Status Cancel Pneumococcal Polyvalent Vaccine (Pneumovax 23) 0.5 ml ONCE ONCE VAX IM ; Start 05/16/17 at 09:00; Stop 05/16/17 at 09:01; Status DC Furosemide (Lasix) 20 mg DAILY PO Last administered on 05/22/17 08:51; Start 05/15/17 at 17:45; Stop 05/22/17 at 17:47; Status DC Pantoprazole Sodium (Protonix) 40 mg DAILYAC PO Last administered on 08:27; Start 05/16/17 at 07:30 Polyethylene Glycol (miraLAX PACKET) 17 gm PRN BID PRN PO CONSTIPATION Last administered on 05/15/17 22:41; Start 05/15/17 at 19:30 Furosemide (Lasix) 20 mg 1X ONCE IVP Last administered on 05/15/17 22:42; Start 05/15/17 at 19:30; Stop 05/15/17 at 19:34; Status DC Iohexol (Omnipaque 300 Mg/ml) 30 ml 1X ONCE PO ; Start 05/16/17 at 09:30; Stop 05/16/17 at 09:32; Status DC Iohexol (Omnipaque 240 Mg/ml) 75 ml 1X ONCE IV ; Start 05/16/17 at 09:30; Stop 05/16/17 at 09:32; Status DC Info (Do NOT chart on this entry -- for MONITORING) 1 each PRN DAILY PRN MC SEE COMMENTS; Start 05/16/17 at 09:45; Stop 05/18/17 at 09:44; Status DC Iohexol (Omnipaque 300 Mg/ml) 75 ml 1X ONCE IV ; Start 05/16/17 at 09:45; Stop 05/16/17 at 09:48; Status DC Info (Do NOT chart on this entry -- for MONITORING) 1 each PRN DAILY PRN MC SEE COMMENTS; Start 05/16/17 at 10:00; Stop 05/18/17 at 09:59; Status DC Albuterol/ Ipratropium (Duoneb) 3 ml RTQID NEB Last administered on 05/29/17 08:21; Start 05/17/17 at 08:00 Info 1 each PRN DAILY PRN MC SEE COMMENTS Last administered on 05/21/17 12:57 ; Start 05/17/17 at 23:15; Stop 05/21/17 at 17:47; Status DC Sodium Chloride 90 meq/Potassium Chloride 50 meq/ Potassium Phosphate 13.6 mmol/ Magnesium Sulfate 10 meq/ Calcium Gluconate 10 meq/ Multivitamins 10 ml/Chromium / Copper/Manganese/ Seleni/Zn 1 ml/ Total Parenteral Nutrition/Amino Acids/ Dextrose/ Fat Emulsion Intravenous 1,512 ml @ 63 mls/hr TPN CONT IV ; Start 05/18/17 at 22:00; Stop 05/18/17 at 22:00; Status DC Sodium Chloride 90 meq/Potassium Chloride 50 meq/ Potassium Phosphate 13.6 mmol/ Magnesium Sulfate 10 meq/ Calcium Gluconate 10 meq/ Multivitamins 10 ml/Chromium / Copper/Manganese/ Seleni/Zn 1 ml/ Total Parenteral Nutrition/Amino Acids/ Dextrose/ Fat Emulsion Intravenous 1,512 ml @ 63 mls/hr TPN CONT IV Last administered on 05/18/17 22:26; Start 05/18/17 at 22:00; Stop 05/19/17 at 21 :59; Status DC Sodium Chloride 90 meq/Potassium Chloride 50 meq/ Potassium Phosphate 13.6 mmol/ Magnesium Sulfate 10 meq/ Calcium Gluconate 10 meq/ Multivitamins 10 ml/Chromium / Copper/Manganese/ Seleni/Zn 1 ml/ Total Parenteral Nutrition/Amino Acids/ Dextrose/ Fat Emulsion Intravenous 1,512 ml @ 63 mls/hr TPN CONT IV Last administered on 05/19/17 22:00; Start 05/19/17 at 22:00; Stop 05/20/17 at 21 :59; Status DC Tamsulosin HCl (Flomax) 0.4 mg QHS PO Last administered on 05/28/17 20:54; Start 05/19/17 at 21:00 Sodium Chloride 90 meq/Potassium Chloride 50 meq/ Potassium Phosphate 13.6 mmol/ Magnesium Sulfate 10 meq/ Calcium Gluconate 10 meq/ Multivitamins 10 ml/Chromium / Copper/Manganese/ Seleni/Zn 1 ml/ Total Parenteral Nutrition/Amino Acids/ Dextrose/ Fat Emulsion Intravenous 1,512 ml @ 63 mls/hr TPN CONT IV Last administered on 05/20/17 22:49; Start 05/20/17 at 22:00; Stop 05/21/17 at 17 :42; Status DC Sodium Chloride (Saline Mist Nasal) 1 federico PRN Q1HR PRN NS NASAL CONGESTION Last administered on 05/21/17 14:52; Start 05/20/17 at 17:45 Sodium Chloride 90 meq/Potassium Chloride 50 meq/ Potassium Phosphate 13.6 mmol/ Magnesium Sulfate 10 meq/ Calcium Gluconate 5 meq/ Multivitamins 10 ml/Chromium / Copper/Manganese/ Seleni/Zn 1 ml/ Total Parenteral Nutrition/Amino Acids/ Dextrose/ Fat Emulsion Intravenous 1,512 ml @ 63 mls/hr TPN CONT IV ; Start 05/21/17 at 22:00; Stop 05/21/17 at 22:00; Status DC Dextrose/Sodium Chloride 1,000 ml @ 50 mls/hr Q20H IV Last administered on 12:15; Start 05/21/17 at 17:45; Stop 05/27/17 at 12:59; Status DC Furosemide (Lasix) 40 mg DAILY IVP Last administered on 05/29/17 08:27; Start 05/23/17 at 09:00 Fentanyl Citrate (Fentanyl 2ml Vial) 25 mcg PRN Q5MIN PRN IV MILD PAIN; Start 05/25/17 at 07:00; Stop 05/25/17 at 14:58; Status DC Fentanyl Citrate (Fentanyl 2ml Vial) 50 mcg PRN Q5MIN PRN IV MODERATE PAIN; Start 05/25/17 at 07:00; Stop 05/25/17 at 14:58; Status DC Morphine Sulfate 1 mg PRN Q10MIN PRN IV SEVERE PAIN; Start 05/25/17 at 07:00; Stop 05/25/17 at 14:58; Status DC Ringer's Solution 1,000 ml @ 30 mls/hr Q24H IV ; Start 05/25/17 at 07:00; Stop 05/25/17 at 18:59; Status DC Lidocaine HCl (Xylocaine-Mpf 1% Vial) 2 ml PRN 1X PRN ID IV START; Start 05/25 at 07:00; Stop 05/26/17 at 06:59; Status DC Hydromorphone HCl (Dilaudid) 0.5 mg PRN Q10MIN PRN IV SEV PAIN, Second choice; Start 05/25/17 at 07:00; Stop 05/25/17 at 14:58; Status DC Prochlorperazine Edisylate (Compazine) 5 mg PACU PRN PRN IV NAUSEA, MRX1; Start 05/25/17 at 07:00; Stop 05/25/17 at 14:58; Status DC Potassium Chloride 50 ml @ 25 mls/hr 1X ONCE IV Last administered on 16:31; Start 05/24/17 at 11:30; Stop 05/24/17 at 13:29; Status DC Carbamide Peroxide (Debrox) 5 drop 1X ONCE AD Last administered on 05/25/17t 16:44; Start 05/25/17 at 17:00; Stop 05/25/17 at 17:01; Status DC Zolpidem Tartrate (Ambien) 5 mg PRN QHS PRN PO INSOMNIA, MAY REPEAT IN 1HR Last administered on 05/28/17t 23:49; Start 05/27/17 at 00:15 Active Scripts Active Pantoprazole Sodium 40 Mg Tablet. 40 Mg PO DAILYAC Reported Divalproex Sodium 500 Mg Tablet.dr 500 Mg PO BID Citalopram Hbr (Citalopram Hydrobromide) 20 Mg Tablet 20 Mg PO DAILY Vitamin D3 (Cholecalciferol (Vitamin D3)) 5,000 Unit Tablet 5,000 Unit PO WEEKLY Vitamin D3 (Cholecalciferol (Vitamin D3)) 5,000 Unit Tablet 5,000 Unit PO DAILY Thera-M (Multivits, W-Fe,Other Min) 1 Each Tablet 1 Each PO DAILY Senna (Sennosides) 8.6 Mg Tablet 8.6 Mg PO DAILY Risperidone 0.5 Mg Tablet 0.25 Mg PO BID Tradjenta (Linagliptin) 5 Mg Tablet 5 Mg PO DAILY Olanzapine 5 Mg Tablet 2.5 Mg PO PRN Q2HRS PRN Potassium Chloride 10 Meq Tablet.er 10 Meq PO DAILY Mirtazapine 15 Mg Tablet 15 Mg PO QHS Gabapentin 100 Mg Capsule 200 Mg PO TID Omeprazole 20 Mg Capsule.dr 20 Mg PO PRN Sulfamethoxazole-Tmp Ds Tablet (Sulfamethoxazole/Trimethoprim) 1 Each Tablet 1 Tab PO BID Restora Rx Capsule (Lactobacillus Casei/Folic Acid) 1 Each Capsule 1 Each PO HS Hydrocodone-Apap 5-325 (Hydrocodone Bit/Acetaminophen) 1 Each Tablet 1-2 Tab PO PRN Q6HRS PRN LAST DOSE GIVEN: DATE: TIME: Colace (Docusate Sodium) 100 Mg Capsule 1 Cap PO BID Vitals/I & O Vital Sign - Last 24 Hours 05/28/17 05/28/17 05/28/17 05/28/17 10:49 11:14 15:00 19:00 Temp 97.7 97.9 97.7 97.7 97.9 97.7 Pulse 89 86 92 Resp 18 18 22 B/P (MAP) 101/69 (80) 90/55 (67) 94/56 (69) Pulse Ox 95 95 95 96 O2 Delivery Room Air Room Air Room Air Room Air 05/28/17 05/28/17 05/28/17 05/28/17 20:00 20:16 22:40 23:00 Temp 99.3 99.3 Pulse 86 Resp 20 B/P (MAP) 103/60 (74) Pulse Ox 93 93 97 O2 Delivery Room Air Room Air Room Air Room Air 05/28/17 05/29/17 05/29/17 05/29/17 23:50 03:56 07:00 08:22 Temp 99.5 97.7 99.5 97.7 Pulse 76 61 Resp 18 20 B/P (MAP) 107/54 (71) 99/65 (76) Pulse Ox 93 93 94 93 O2 Delivery Room Air Room Air Room Air Room Air O2 Flow Rate 2.0 05/29/17 08:27 Pulse Ox 93 O2 Delivery Room Air O2 Flow Rate 2.0 Intake and Output 05/28/17 05/28/17 05/29/17 15:00 23:00 07:00 Intake Total 540 ml 400 ml Output Total 1550 ml 350 ml Balance -1010 ml 50 ml Nutrition Consultation Dietary Evaluation: Recommendations by RD: PPN/TPN Comments: REC Low Sodium diet Expected Outcomes/Goals: new goal: to meet > 75% est nutrition needs via po intake - met, goal ongoing Interpretation of weight loss: >1-2% in 1 week Malnutrition Findings: Food and Nutrition Intake (Sev: <50% est energy req 5days Weight Status: Overweight GLENN HERRERA MD May 29, 2017 09:49
--- NOTE | 2017-05-29 10:08 | PDOC ---
Infectious Disease Note Subjective Subjective feeling ok has lt knee pain from ? twisting ,walks with a walker no f/c/n/v/sob ROS ROS GEN: Denies fevers, chills, sweats HEENT: Denies blurred vision, sore throat CV: Denies chest pain RESP: Denies shortness of air, cough GI: Denies n/v/d : Denies hematuria, dysuria ENDO: Denies weight changes NEURO: Denies confusion, dizziness MSK: Denies weakness, as above SKIN: Denies rash, pruritus Vital Sign Vital Signs Vital Signs Date Time Temp Pulse Resp B/P (MAP) Pulse Ox O2 Delivery O2 Flow Rate FiO2 05/29/17 08:27 93 Room Air 2.0 05/29/17 07:00 97.7 61 20 99/65 (76) 97.7 Physical Exam PHYSICAL EXAM GENERAL: NAD, Alert HEENT: PERRL, icterus present NECK: Supple, no JVD, no LN LUNGS: Clear HEART: S1S2, no gallop, no murmur ABD: Soft, NT, no organomegaly, no rebound EXT: No edema, no cyanosis lt knee no redness or dec in 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 Choledocholithiasis.Recurrent jaundice.S/P ERCP 2.Leucocytosis likely reactive from ERCP 05/10,with stone removal 3.postprocedure pancreatitis improving slowly 3. Weight loss. 4. Malaise and fatigue. 5. History of Serratia marcescens bacteremia in 12/2016, treated. 6. Status post appendectomy and liver biopsy in 12/2016. 7. History of diverticulosis on recent colonoscopy. 8. Status post cholecystectomy, ERCP x 2 with sphincterotomy. 9. History of vomiting, now resolved. 10. GERD. 11. Hypertension. 12. DJD, chronic, stable. 13.Lt knee strain Plan Plan of Care probiotics F/u labs stent removal done, sputum with tubular long structure, sent to pathology pending ice packs to lt knee TINY Richmond MD May 29, 2017 10:08
[2017-05-29] MEDS ORDERED: methylPREDNISolone ACETATE 40 MG/ML VIAL. IM ONE (10:30)
[2017-05-29] MEDS ORDERED: methylPREDNISolone ACETATE 40 MG/ML VIAL. ONE (10:30)
[2017-05-29 11:00] VITALS: BP 103/59
[2017-05-29 11:38] LABS: BASO # 0.1 x10^3/uL (0.0-0.2); BASO % 1 % (0-3); EOS % 1 % (0-3); HEMATOCRIT 29.9 % (39.0-53.0); HEMOGLOBIN 10.3 g/dL (13.0-17.5); LYMPH # 0.4 x10^3/uL (1.0-4.8); LYMPH % 5 % (24-48); MEAN CORPUSCULAR HEMOGLOBIN 33 pg (25-35); MEAN CORPUSCULAR HGB CONC 34 g/dL (31-37); MEAN CORPUSCULAR VOLUME 96 fL (79-100); MONO % 12 % (0-9); NEUT % 81 % (31-73); PLATELET COUNT 247 x10^3/uL (140-400); RED BLOOD COUNT 3.11 x10^6/uL (4.30-5.70); RED CELL DISTRIBUTION WIDTH 16.2 % (11.5-14.5); WHITE BLOOD COUNT 8.2 x10^3/uL (4.0-11.0)
--- NOTE | 2017-05-29 11:48 | PDOC ---
Subjective: Subjective: Twisted left knee yesterday, hurts to walk. No GI complaints. Objective: Vital Signs: Vital Signs Date Time Temp Pulse Resp B/P (MAP) Pulse Ox O2 Delivery O2 Flow Rate FiO2 05/29/17 11:05 96 Room Air 05/29/17 11:00 97.4 83 22 103/59 (74) 97.4 05/29/17 08:27 2.0 Labs: Laboratory Tests Test 05/29/17 11:20 White Blood Count 8.2 x10^3/uL Red Blood Count 3.11 x10^6/uL Hemoglobin 10.3 g/dL Hematocrit 29.9 % Mean Corpuscular Volume 96 fL Mean Corpuscular Hemoglobin 33 pg Mean Corpuscular Hemoglobin Concent 34 g/dL Red Cell Distribution Width 16.2 % Platelet Count 247 x10^3/uL Neutrophils (%) (Auto) 81 % Lymphocytes (%) (Auto) 5 % Monocytes (%) (Auto) 12 % Eosinophils (%) (Auto) 1 % Basophils (%) (Auto) 1 % Neutrophils # (Auto) 6.6 x10^3uL Lymphocytes # (Auto) 0.4 x10^3/uL Monocytes # (Auto) 1.0 x10^3/uL Eosinophils # (Auto) 0.1 x10^3/uL Basophils # (Auto) 0.1 x10^3/uL PE: GEN: NAD LUNGS: clear HEART: RRR ABD: non-tender, soft SKIN: +jaundice NEURO/PSYCH: A & O 3 A/P: Choledocholithiasis, cholangitis -s/p ERCP w/ dilation of CBD stricture, stone extraction, and stent placement/ replaced 05/24 -- Bili last checked 05/26 - CMP pending today. GUILLERMINA JAUREGUI May 29, 2017 11:48
[2017-05-29 11:49] LABS: INR 1.3 (0.8-1.1)
[2017-05-29 11:52] LABS: ALBUMIN 1.6 g/dL (3.4-5.0); ALBUMIN/GLOBULIN RATIO 0.4 (1.0-1.7); CREATININE 1.4 mg/dL (0.7-1.3); GFR 49.4; TOTAL BILIRUBIN 9.9 mg/dL (0.2-1.0); TOTAL PROTEIN 6.1 g/dL (6.4-8.2)
[2017-05-29 11:59] LABS: POTASSIUM 2.9 mmol/L (3.5-5.1)
--- NOTE | 2017-05-29 12:08 | PATHOLOGY ---
PATHOLOGY REPORT * * * * * * * * FINAL DIAGNOSIS: Soft tissue, "possible string from lungs", removal: - Fragments of skeletal muscle with associated macrophages and inflammatory cells. (SKM:pit; 05/29/2017) REPORT ELECTRONICALLY SIGNED BY: Tami Kinney M.D. DATE/TIME: 05/29/2017 12:08 * * * * * * * * GROSS PATHOLOGY: The specimen is received in formalin, labeled "Janes Cho, possible string from lungs," and consists of multiple green fragments of firm possible foreign material measuring 3.5 x 2.9 x 0.5 cm in aggregate dimensions. Ext Js Developer sections are submitted in cassette A1. (SDY; 05/26/2017) INITIAL CPT CODE(S): A; 63737 Professional services performed by [facility] [place] [address] Technical services performed by [facility] at [address] [place] [address]. SPECIMEN(S) RECEIVED: A.Possible string from lungs CLINICAL HISTORY: Jaundice, patient coughed material up and Dr. Tami Vazquez asked for microscopic examination PATIENT: JANES CHO /AGE: 3 1940 (Age: 76) PATIENT #: [id number] ALT CASE #: SPECIMEN COLLECTION DATE: 05/24/2017 SPECIMEN RECEIVED DATE: 05/24/2017 [facility] - [address] [place] [address] - PHONE: [phone] * * * END OF REPORT * * *
[2017-05-29] MEDS: POTASSIUM CHLORIDE 20 MEQ TABLET.ER. PO SCH ×2 (13:03→21:26)
[2017-05-29 15:00] VITALS: BP 95/57
--- NOTE | 2017-05-29 17:18 | PDOC4 ---
PROCEDURE Procedure At his request,I have injected his left knee under aseptic skin technique with marcaine and depomedrol solution and he tolerated the procedure satisfactorily without any side effects. ALEXIA RICKS MD May 29, 2017 17:18
[2017-05-29 19:10] VITALS: BP 99/62
--- NOTE | 2017-05-29 20:13 | CONS ---
DATE OF CONSULTATION: ATTENDING PHYSICIAN: Dr. Black. The patient was seen at the request of Dr. Jennings for evaluation about his left knee pain. HISTORY OF PRESENT ILLNESS: This is a 76-year-old male admitted on 05/09/2017 with jaundice for about a week with associated weakness, very dark urine. The patient was found with elevated liver function tests; alkaline phosphatase is being in the 100s range, total bilirubin 20. Ultrasound revealed choledocholithiasis and diffuse hepatic steatosis. He is a nondrinker. He was at this medical center in December for jaundice too. The patient also had Serratia marcescens sensitive bacteremia in 4/4 bottles. The patient also had about 10 pounds weight loss prior to the hospitalization. The patient with known hypertension, osteoarthritis, status post arthroscopic debridement of his knees in the past, status post appendectomy, cholecystectomy, family history of hypertension. He lives with his son, not known allergic to any medication. He never used any assistive devices prior to the present hospitalization. He complains of pain in his left knee, probably twisted his knee yesterday while trying to get out of the recliner. The patient admits pain, disturbing his sleep. PHYSICAL EXAMINATION: Today revealed an elderly male. He is alert, oriented to time, place, person and circumstance and follows commands appropriately, moves all 4 extremities voluntarily where he had 4+/5 grade muscle strength. Deep tendon reflexes are 1-2+ and symmetrical and he had equal perception of touch and pinprick sensation bilaterally. He had mild redness of skin over dorsal aspect of left knee. Crepitus on range of motion of his knees without any significant knee joint effusion. He had pain free range of motion of his hip joints. I have not tested transfer or ambulation skills at this time. ASSESSMENT: An elderly male with degenerative joint disease of both knees with associated left knee sprain, onset 05/28/2017. RECOMMENDATION: To proceed with injecting painful left knee with Depo-Medrol and Marcaine and I have instructed him an isometric strengthening exercise to his knees, to consider knee support brace if the pain persists and interfering with his ability to get up and walk. Dr. Jennings, I appreciate asking me to participate in the care of this interesting patient. I will be glad to follow him with you as needed for his rehabilitation. ALEXIA RICKS MD DR: REEMA/elroy JOB#: [id number] / [id number]
[2017-05-29] MEDS: TAMSULOSIN 0.4 MG CAP.ER.24H. PO SCH (21:25)
[2017-05-29 23:10] VITALS: BP 102/63
[2017-05-29] MEDS: ZOLPIDEM 5 MG TABLET. PO PRN (23:42)
[2017-05-30 03:10] VITALS: BP 104/65
[2017-05-30 07:20] VITALS: BP 107/77
[2017-05-30] MEDS: DOCUSATE SODIUM 100 MG CAPSULE. PO SCH ×2 (07:38→21:35)
[2017-05-30] MEDS: PANTOPRAZOLE 40 MG TABLET.DR. PO SCH (07:38)
[2017-05-30] MEDS: LACTOBACILLUS RHAMNOSUS GG 1 CAPSULE. PO SCH ×2 (07:38→21:36)
[2017-05-30] MEDS: POTASSIUM CHLORIDE 20 MEQ TABLET.ER. PO SCH (07:38)
[2017-05-30] MEDS: FUROSEMIDE 40 MG/4 ML VIAL. IVP SCH (07:39)
[2017-05-30] MEDS: IPRATRPIUM/ALBUTEROL 0.5/2.5MG 3 ML NEBU. NEB SCH (08:00)
[2017-05-30] MEDS ORDERED: IPRATRPIUM/ALBUTEROL 0.5/2.5MG 3 ML NEBU. NEB PRN (09:00)
--- NOTE | 2017-05-30 09:12 | PDOC ---
PROGRESS NOTES Chief Complaint Chief Complaint Jaundice, improving 1. Choledocholithiasis: s/p ERCP 05/10 with CBD stone removal and stent placement. removal of obstructed stent on 05/24. prior biliary obstruction with stones, s/p cholecystectomy and sphincterectomy 08/2015 2. post ERCP pancreatitis: resolved 3. obstructive hepatitis: very slow improvement in LFTs, eileen bili. plans for Ursodiol later 4. Hypoalbuminemia: malnutrition on admit 5. 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 CAD: no sx. 7. HTN: well controlled 8. Fluid overload: 2/2 copious IVF during admission, very low albumin. 9. PNA: s/p levaquin x10d, 9. left knee pain, injury from awkward movement last night, has prior knee injection with good success, 10, weakness and debility, need rehab History of Present Illness History of Present Illness knee pain better complains of freq. urination in AM after lasix given TB and albumin and lFTS stable high knee pain better, s/p physiatry injection cont stool softeners plan SNU soon potassium replaced, recheck labs Vitals Vitals Vital Signs Date Time Temp Pulse Resp B/P (MAP) Pulse Ox O2 Delivery O2 Flow Rate FiO2 05/30/17 08:49 97 Room Air 05/30/17 07:20 97.6 82 17 107/77 (87) 97.6 05/29/17 08:27 2.0 Physical Exam General: Alert, Oriented X3, Cooperative, No acute distress, mild distress Heart: Regular rate Lungs: Clear Abdomen: Normal bowel sounds, Soft, Other (obese, [place]) Extremities: No edema Skin: No rashes, Other (jaundiced) Labs LABS Laboratory Tests Test 05/29/17 11:20 White Blood Count 8.2 x10^3/uL (4.0-11.0) Red Blood Count 3.11 x10^6/uL (4.30-5.70) Hemoglobin 10.3 g/dL (13.0-17.5) Hematocrit 29.9 % (39.0-53.0) Mean Corpuscular Volume 96 fL (79-100) Mean Corpuscular Hemoglobin 33 pg (25-35) Mean Corpuscular Hemoglobin Concent 34 g/dL (31-37) Red Cell Distribution Width 16.2 % (11.5-14.5) Platelet Count 247 x10^3/uL (140-400) Neutrophils (%) (Auto) 81 % (31-73) Lymphocytes (%) (Auto) 5 % (24-48) Monocytes (%) (Auto) 12 % (0-9) Eosinophils (%) (Auto) 1 % (0-3) Basophils (%) (Auto) 1 % (0-3) Neutrophils # (Auto) 6.6 x10^3uL (1.8-7.7) Lymphocytes # (Auto) 0.4 x10^3/uL (1.0-4.8) Monocytes # (Auto) 1.0 x10^3/uL (0.0-1.1) Eosinophils # (Auto) 0.1 x10^3/uL (0.0-0.7) Basophils # (Auto) 0.1 x10^3/uL (0.0-0.2) Prothrombin Time 15.0 SEC (11.7-14.0) Prothromb Time International Ratio 1.3 (0.8-1.1) Sodium Level 140 mmol/L (136-145) Potassium Level 2.9 mmol/L (3.5-5.1) Chloride Level 105 mmol/L (98-107) Carbon Dioxide Level 24 mmol/L (21-32) Anion Gap 11 (6-14) Blood Urea Nitrogen 17 mg/dL (8-26) Creatinine 1.4 mg/dL (0.7-1.3) Estimated GFR (Cockcroft-Gault) 49.4 BUN/Creatinine Ratio 12 (6-20) Glucose Level 108 mg/dL (70-99) Calcium Level 8.0 mg/dL (8.5-10.1) Total Bilirubin 9.9 mg/dL (0.2-1.0) Aspartate Amino Transf (AST/SGOT) 135 U/L (15-37) Alanine Aminotransferase (ALT/SGPT) 54 U/L (16-63) Alkaline Phosphatase 352 U/L (46-116) Total Protein 6.1 g/dL (6.4-8.2) Albumin 1.6 g/dL (3.4-5.0) Albumin/Globulin Ratio 0.4 (1.0-1.7) Review of Systems Review of Systems no n.v.d knee pain weakness freq urination Assessment and Plan Assessmemt and Plan Problems Medical Problems: (1) Jaundice Status: Acute (2) Liver failure Status: Acute Problems: Comment Review of Relevant I have reviewed the following items jadon (where applicable) has been applied. Labs Laboratory Tests Test 05/29/17 11:20 White Blood Count 8.2 x10^3/uL (4.0-11.0) Red Blood Count 3.11 x10^6/uL (4.30-5.70) Hemoglobin 10.3 g/dL (13.0-17.5) Hematocrit 29.9 % (39.0-53.0) Mean Corpuscular Volume 96 fL (79-100) Mean Corpuscular Hemoglobin 33 pg (25-35) Mean Corpuscular Hemoglobin Concent 34 g/dL (31-37) Red Cell Distribution Width 16.2 % (11.5-14.5) Platelet Count 247 x10^3/uL (140-400) Neutrophils (%) (Auto) 81 % (31-73) Lymphocytes (%) (Auto) 5 % (24-48) Monocytes (%) (Auto) 12 % (0-9) Eosinophils (%) (Auto) 1 % (0-3) Basophils (%) (Auto) 1 % (0-3) Neutrophils # (Auto) 6.6 x10^3uL (1.8-7.7) Lymphocytes # (Auto) 0.4 x10^3/uL (1.0-4.8) Monocytes # (Auto) 1.0 x10^3/uL (0.0-1.1) Eosinophils # (Auto) 0.1 x10^3/uL (0.0-0.7) Basophils # (Auto) 0.1 x10^3/uL (0.0-0.2) Prothrombin Time 15.0 SEC (11.7-14.0) Prothromb Time International Ratio 1.3 (0.8-1.1) Sodium Level 140 mmol/L (136-145) Potassium Level 2.9 mmol/L (3.5-5.1) Chloride Level 105 mmol/L (98-107) Carbon Dioxide Level 24 mmol/L (21-32) Anion Gap 11 (6-14) Blood Urea Nitrogen 17 mg/dL (8-26) Creatinine 1.4 mg/dL (0.7-1.3) Estimated GFR (Cockcroft-Gault) 49.4 BUN/Creatinine Ratio 12 (6-20) Glucose Level 108 mg/dL (70-99) Calcium Level 8.0 mg/dL (8.5-10.1) Total Bilirubin 9.9 mg/dL (0.2-1.0) Aspartate Amino Transf (AST/SGOT) 135 U/L (15-37) Alanine Aminotransferase (ALT/SGPT) 54 U/L (16-63) Alkaline Phosphatase 352 U/L (46-116) Total Protein 6.1 g/dL (6.4-8.2) Albumin 1.6 g/dL (3.4-5.0) Albumin/Globulin Ratio 0.4 (1.0-1.7) Laboratory Tests Test 05/29/17 11:20 White Blood Count 8.2 x10^3/uL (4.0-11.0) Red Blood Count 3.11 x10^6/uL (4.30-5.70) Hemoglobin 10.3 g/dL (13.0-17.5) Hematocrit 29.9 % (39.0-53.0) Mean Corpuscular Volume 96 fL (79-100) Mean Corpuscular Hemoglobin 33 pg (25-35) Mean Corpuscular Hemoglobin Concent 34 g/dL (31-37) Red Cell Distribution Width 16.2 % (11.5-14.5) Platelet Count 247 x10^3/uL (140-400) Neutrophils (%) (Auto) 81 % (31-73) Lymphocytes (%) (Auto) 5 % (24-48) Monocytes (%) (Auto) 12 % (0-9) Eosinophils (%) (Auto) 1 % (0-3) Basophils (%) (Auto) 1 % (0-3) Neutrophils # (Auto) 6.6 x10^3uL (1.8-7.7) Lymphocytes # (Auto) 0.4 x10^3/uL (1.0-4.8) Monocytes # (Auto) 1.0 x10^3/uL (0.0-1.1) Eosinophils # (Auto) 0.1 x10^3/uL (0.0-0.7) Basophils # (Auto) 0.1 x10^3/uL (0.0-0.2) Prothrombin Time 15.0 SEC (11.7-14.0) Prothromb Time International Ratio 1.3 (0.8-1.1) Sodium Level 140 mmol/L (136-145) Potassium Level 2.9 mmol/L (3.5-5.1) Chloride Level 105 mmol/L (98-107) Carbon Dioxide Level 24 mmol/L (21-32) Anion Gap 11 (6-14) Blood Urea Nitrogen 17 mg/dL (8-26) Creatinine 1.4 mg/dL (0.7-1.3) Estimated GFR (Cockcroft-Gault) 49.4 BUN/Creatinine Ratio 12 (6-20) Glucose Level 108 mg/dL (70-99) Calcium Level 8.0 mg/dL (8.5-10.1) Total Bilirubin 9.9 mg/dL (0.2-1.0) Aspartate Amino Transf (AST/SGOT) 135 U/L (15-37) Alanine Aminotransferase (ALT/SGPT) 54 U/L (16-63) Alkaline Phosphatase 352 U/L (46-116) Total Protein 6.1 g/dL (6.4-8.2) Albumin 1.6 g/dL (3.4-5.0) Albumin/Globulin Ratio 0.4 (1.0-1.7) Microbiology 05/09/17 Blood Culture - Final, Complete NO GROWTH AFTER 5 DAYS 05/19/17 Urine Culture - Final, Complete 05/19/17 Urine Culture Result 1 (CHELE) - Final, Complete Medications Current Medications Docusate Sodium (Colace) 100 mg BID PO Last administered on 05/30/17 07:38; Start 05/09/17 at 21:00 Acetaminophen/ Hydrocodone Bitart (Lortab 5/325) 1 tab PRN Q6HRS PRN PO PAIN; Start 05/09/17 at 14:15; Status Cancel Pantoprazole Sodium (Protonix) 40 mg DAILYAC PO ; Start 05/09/17 at 14:30; Stop 05/11/17 at 07:46; Status DC Diphenhydramine HCl (Benadryl) 25 mg PRN QHS PRN PO INSOMNIA Last administered on 05/14/17 22:07; Start 05/09/17 at 14:15 Acetaminophen/ Hydrocodone Bitart (Lortab 5/325) 1 tab PRN Q4HRS PRN PO MODERATE - SEVERE PAIN Last administered on 05/29/17 08:27; Start 05/09/17 at 14:15 Ondansetron HCl (Zofran) 4 mg PRN Q6HRS PRN IV NAUSEA/VOMITING; Start 05/09/17 at 14:15; Stop 05/10/17 at 16:18; Status DC Levofloxacin/ Dextrose 100 ml @ 100 mls/hr Q24H IV Last administered on 16:45; Start 05/09/17 at 16:00; Stop 05/10/17 at 10:51; Status DC Acetaminophen (Tylenol) 650 mg PRN Q6HRS PRN PO FEVER; Start 05/10/17 at 12:45 Ondansetron HCl (Zofran) 4 mg PRN Q6HRS PRN IV NAUSEA/VOMITING; Start 05/10/17 at 12:45 Morphine Sulfate 2 mg PRN Q2HR PRN IV PAIN Last administered on 05/16/17 23: 57; Start 05/10/17 at 12:45; Stop 05/18/17 at 17:46; Status DC Tramadol HCl (Ultram) 50 mg PRN Q6HRS PRN PO MILD PAIN Last administered on 13:22; Start 05/10/17 at 12:45 Hydralazine HCl (Apresoline Inj) 10 mg PRN Q4HRS PRN IVP ELEVATED BP, SEE COMMENTS; Start 05/10/17 at 12:45 Docusate Sodium (Colace) 100 mg PRN DAILY PRN PO CONSTIPATION; Start 05/10/17 at 12:45; Stop 05/18/17 at 17:46; Status DC Enoxaparin Sodium (Lovenox 40mg Syringe) 40 mg Q24H SQ Last administered on 12:14; Start 05/10/17 at 13:00; Stop 05/27/17 at 12:59; Status DC Iohexol (Omnipaque 300 Mg/ml) 100 ml STK-MED ONCE .ROUTE ; Start 05/10/17 at 14: 43; Stop 05/10/17 at 14:44; Status DC Ringer's Solution 1,000 ml @ 75 mls/hr 1X ONCE IV Last administered on 16:05; Start 05/10/17 at 16:15; Stop 05/11/17 at 05:34; Status DC Propofol 20 ml @ As Directed STK-MED ONCE IV ; Start 05/10/17 at 16:39; Stop at 16:40; Status DC Succinylcholine Chloride (Anectine) 200 mg STK-MED ONCE .ROUTE ; Start 05/10/17 at 16:39; Stop 05/10/17 at 16:40; Status DC Lidocaine HCl (Lidocaine Pf 2% Vial) 5 ml STK-MED ONCE .ROUTE ; Start 05/10/17 at 16:39; Stop 05/10/17 at 16:40; Status DC Phenylephrine HCl (Jeffrey-Synephrine Inj) 10 mg STK-MED ONCE .ROUTE ; Start at 16:41; Stop 05/10/17 at 16:42; Status DC Levofloxacin/ Dextrose 100 ml @ As Directed STK-MED ONCE IV ; Start 05/10/17 at 17:44; Stop 05/10/17 at 17:45; Status DC Lidocaine HCl (Lidocaine Pf 2% Vial) 5 ml STK-MED ONCE .ROUTE ; Start 05/10/17 at 18:57; Stop 05/10/17 at 18:58; Status DC Iohexol (Omnipaque 300 Mg/ml) 100 ml STK-MED ONCE INT CAT Last administered on 05/10/17 18:58; Start 05/10/17 at 18:58; Stop 05/10/17 at 19:00; Status DC Levofloxacin/ Dextrose 100 ml @ 100 mls/hr Q24H IV Last administered on 09:20; Start 05/11/17 at 08:00; Stop 05/12/17 at 19:03; Status DC Simethicone (Gas-X) 80 mg PRN AFTMEALHC PRN PO GAS / BLOATING Last administered on 05/20/17 20:47; Start 05/11/17 at 02:45 Morphine Sulfate 4 mg PRN Q2HR PRN IV SEVERE PAIN Last administered on 19:41; Start 05/11/17 at 06:15; Stop 05/16/17 at 21:36; Status DC Ketorolac Tromethamine (Toradol) 30 mg 1X ONCE IV Last administered on 07:57; Start 05/11/17 at 08:00; Stop 05/11/17 at 08:01; Status DC Sodium Chloride 1,000 ml @ 50 mls/hr Q20H IV Last administered on 05/15/17 13:42; Start 05/11/17 at 08:00; Stop 05/15/17 at 19:32; Status DC Pantoprazole Sodium (Protonix Vial) 40 mg DAILYAC IVP Last administered on 09:01; Start 05/11/17 at 08:00; Stop 05/15/17 at 19:15; Status DC Amino Acids/ Glycerin/ Electrolytes 1,000 ml @ 80 mls/hr [id number] IV Last administered on 05/18/17 11:29; Start 05/11/17 at 12:00; Stop 05/18/17 at 17: 46; Status DC Ketorolac Tromethamine (Toradol) 30 mg PRN Q6HRS PRN IV PAIN Last administered on 05/12/17 03:11; Start 05/11/17 at 12:00; Stop 05/15/17 at 10:00; Status DC Levofloxacin/ Dextrose 100 ml @ 100 mls/hr Q24H IV ; Start 05/11/17 at 18:00; Status Cancel Albuterol Sulfate (Ventolin Neb Soln) 2.5 mg PRN Q4HRS PRN NEB SHORTNESS OF BREATH Last administered on 05/18/17 09:21; Start 05/12/17 at 14:30 Levofloxacin (Levaquin) 500 mg DAILY PO Last administered on 05/21/17 08:13; Start 05/13/17 at 09:00; Stop 05/21/17 at 17:49; Status DC Lactobacillus Rhamnosus (Culturelle) 1 cap BID PO Last administered on 07:38; Start 05/12/17 at 21:00 Pneumococcal Polyvalent Vaccine (Do NOT chart on this placeholder) 1 each PRN DAILY PRN MC LAST DATE UNKNOWN; Start 05/14/17 at 03:30; Status Cancel Pneumococcal Polyvalent Vaccine (Pneumovax 23) 0.5 ml ONCE ONCE VAX IM ; Start 05/16/17 at 09:00; Stop 05/16/17 at 09:01; Status DC Furosemide (Lasix) 20 mg DAILY PO Last administered on 05/22/17 08:51; Start 05/15/17 at 17:45; Stop 05/22/17 at 17:47; Status DC Pantoprazole Sodium (Protonix) 40 mg DAILYAC PO Last administered on 07:38; Start 05/16/17 at 07:30 Polyethylene Glycol (miraLAX PACKET) 17 gm PRN BID PRN PO CONSTIPATION Last administered on 05/15/17 22:41; Start 05/15/17 at 19:30 Furosemide (Lasix) 20 mg 1X ONCE IVP Last administered on 05/15/17 22:42; Start 05/15/17 at 19:30; Stop 05/15/17 at 19:34; Status DC Iohexol (Omnipaque 300 Mg/ml) 30 ml 1X ONCE PO ; Start 05/16/17 at 09:30; Stop 05/16/17 at 09:32; Status DC Iohexol (Omnipaque 240 Mg/ml) 75 ml 1X ONCE IV ; Start 05/16/17 at 09:30; Stop 05/16/17 at 09:32; Status DC Info (Do NOT chart on this entry -- for MONITORING) 1 each PRN DAILY PRN MC SEE COMMENTS; Start 05/16/17 at 09:45; Stop 05/18/17 at 09:44; Status DC Iohexol (Omnipaque 300 Mg/ml) 75 ml 1X ONCE IV ; Start 05/16/17 at 09:45; Stop 05/16/17 at 09:48; Status DC Info (Do NOT chart on this entry -- for MONITORING) 1 each PRN DAILY PRN MC SEE COMMENTS; Start 05/16/17 at 10:00; Stop 05/18/17 at 09:59; Status DC Albuterol/ Ipratropium (Duoneb) 3 ml RTQID NEB Last administered on 05/29/17 16:24; Start 05/17/17 at 08:00; Stop 05/30/17 at 08:54; Status DC Info 1 each PRN DAILY PRN MC SEE COMMENTS Last administered on 05/21/17 12:57 ; Start 05/17/17 at 23:15; Stop 05/21/17 at 17:47; Status DC Sodium Chloride 90 meq/Potassium Chloride 50 meq/ Potassium Phosphate 13.6 mmol/ Magnesium Sulfate 10 meq/ Calcium Gluconate 10 meq/ Multivitamins 10 ml/Chromium / Copper/Manganese/ Seleni/Zn 1 ml/ Total Parenteral Nutrition/Amino Acids/ Dextrose/ Fat Emulsion Intravenous 1,512 ml @ 63 mls/hr TPN CONT IV ; Start 05/18/17 at 22:00; Stop 05/18/17 at 22:00; Status DC Sodium Chloride 90 meq/Potassium Chloride 50 meq/ Potassium Phosphate 13.6 mmol/ Magnesium Sulfate 10 meq/ Calcium Gluconate 10 meq/ Multivitamins 10 ml/Chromium / Copper/Manganese/ Seleni/Zn 1 ml/ Total Parenteral Nutrition/Amino Acids/ Dextrose/ Fat Emulsion Intravenous 1,512 ml @ 63 mls/hr TPN CONT IV Last administered on 05/18/17 22:26; Start 05/18/17 at 22:00; Stop 05/19/17 at 21 :59; Status DC Sodium Chloride 90 meq/Potassium Chloride 50 meq/ Potassium Phosphate 13.6 mmol/ Magnesium Sulfate 10 meq/ Calcium Gluconate 10 meq/ Multivitamins 10 ml/Chromium / Copper/Manganese/ Seleni/Zn 1 ml/ Total Parenteral Nutrition/Amino Acids/ Dextrose/ Fat Emulsion Intravenous 1,512 ml @ 63 mls/hr TPN CONT IV Last administered on 05/19/17 22:00; Start 05/19/17 at 22:00; Stop 05/20/17 at 21 :59; Status DC Tamsulosin HCl (Flomax) 0.4 mg QHS PO Last administered on 05/29/17 21:25; Start 05/19/17 at 21:00 Sodium Chloride 90 meq/Potassium Chloride 50 meq/ Potassium Phosphate 13.6 mmol/ Magnesium Sulfate 10 meq/ Calcium Gluconate 10 meq/ Multivitamins 10 ml/Chromium / Copper/Manganese/ Seleni/Zn 1 ml/ Total Parenteral Nutrition/Amino Acids/ Dextrose/ Fat Emulsion Intravenous 1,512 ml @ 63 mls/hr TPN CONT IV Last administered on 05/20/17 22:49; Start 05/20/17 at 22:00; Stop 05/21/17 at 17 :42; Status DC Sodium Chloride (Saline Mist Nasal) 1 federico PRN Q1HR PRN NS NASAL CONGESTION Last administered on 05/21/17 14:52; Start 05/20/17 at 17:45 Sodium Chloride 90 meq/Potassium Chloride 50 meq/ Potassium Phosphate 13.6 mmol/ Magnesium Sulfate 10 meq/ Calcium Gluconate 5 meq/ Multivitamins 10 ml/Chromium / Copper/Manganese/ Seleni/Zn 1 ml/ Total Parenteral Nutrition/Amino Acids/ Dextrose/ Fat Emulsion Intravenous 1,512 ml @ 63 mls/hr TPN CONT IV ; Start 05/21/17 at 22:00; Stop 05/21/17 at 22:00; Status DC Dextrose/Sodium Chloride 1,000 ml @ 50 mls/hr Q20H IV Last administered on 12:15; Start 05/21/17 at 17:45; Stop 05/27/17 at 12:59; Status DC Furosemide (Lasix) 40 mg DAILY IVP Last administered on 05/30/17 07:39; Start 05/23/17 at 09:00 Fentanyl Citrate (Fentanyl 2ml Vial) 25 mcg PRN Q5MIN PRN IV MILD PAIN; Start 05/25/17 at 07:00; Stop 05/25/17 at 14:58; Status DC Fentanyl Citrate (Fentanyl 2ml Vial) 50 mcg PRN Q5MIN PRN IV MODERATE PAIN; Start 05/25/17 at 07:00; Stop 05/25/17 at 14:58; Status DC Morphine Sulfate 1 mg PRN Q10MIN PRN IV SEVERE PAIN; Start 05/25/17 at 07:00; Stop 05/25/17 at 14:58; Status DC Ringer's Solution 1,000 ml @ 30 mls/hr Q24H IV ; Start 05/25/17 at 07:00; Stop 05/25/17 at 18:59; Status DC Lidocaine HCl (Xylocaine-Mpf 1% Vial) 2 ml PRN 1X PRN ID IV START; Start 05/25 at 07:00; Stop 05/26/17 at 06:59; Status DC Hydromorphone HCl (Dilaudid) 0.5 mg PRN Q10MIN PRN IV SEV PAIN, Second choice; Start 05/25/17 at 07:00; Stop 05/25/17 at 14:58; Status DC Prochlorperazine Edisylate (Compazine) 5 mg PACU PRN PRN IV NAUSEA, MRX1; Start 05/25/17 at 07:00; Stop 05/25/17 at 14:58; Status DC Potassium Chloride 50 ml @ 25 mls/hr 1X ONCE IV Last administered on 16:31; Start 05/24/17 at 11:30; Stop 05/24/17 at 13:29; Status DC Carbamide Peroxide (Debrox) 5 drop 1X ONCE AD Last administered on 05/25/17 16:44; Start 05/25/17 at 17:00; Stop 05/25/17 at 17:01; Status DC Zolpidem Tartrate (Ambien) 5 mg PRN QHS PRN PO INSOMNIA, MAY REPEAT IN 1HR Last administered on 05/29/17 23:42; Start 05/27/17 at 00:15 Methylprednisolone Acetate (DEPO-Medrol 40MG VIAL) 40 mg 1X ONCE IM ; Start at 10:30; Stop 05/29/17 at 10:31; Status DC Propofol 20 ml @ As Directed STK-MED ONCE IV ; Start 05/24/17 at 13:41; Stop 05/29/17 at 11:11; Status DC Propofol 20 ml @ As Directed STK-MED ONCE IV ; Start 05/24/17 at 14:04; Stop 05/29/17 at 11:11; Status DC Potassium Chloride (Klor-Con) 40 meq BID PO Last administered on 05/30/17 07: 38; Start 05/29/17 at 12:15; Stop 05/30/17 at 15:00 Albuterol/ Ipratropium (Duoneb) 3 ml RTQID PRN NEB dyspnea; Start 05/30/17 at 09:00 Active Scripts Active Pantoprazole Sodium 40 Mg Tablet.dr 40 Mg PO DAILYAC Reported Divalproex Sodium 500 Mg Tablet.dr 500 Mg PO BID Citalopram Hbr (Citalopram Hydrobromide) 20 Mg Tablet 20 Mg PO DAILY Vitamin D3 (Cholecalciferol (Vitamin D3)) 5,000 Unit Tablet 5,000 Unit PO WEEKLY Vitamin D3 (Cholecalciferol (Vitamin D3)) 5,000 Unit Tablet 5,000 Unit PO DAILY Thera-M (Multivits,Th W-Fe,Other Min) 1 Each Tablet 1 Each PO DAILY Senna (Sennosides) 8.6 Mg Tablet 8.6 Mg PO DAILY Risperidone 0.5 Mg Tablet 0.25 Mg PO BID Tradjenta (Linagliptin) 5 Mg Tablet 5 Mg PO DAILY Olanzapine 5 Mg Tablet 2.5 Mg PO PRN Q2HRS PRN Potassium Chloride 10 Meq Tablet.er 10 Meq PO DAILY Mirtazapine 15 Mg Tablet 15 Mg PO QHS Gabapentin 100 Mg Capsule 200 Mg PO TID Omeprazole 20 Mg Capsule.dr 20 Mg PO PRN Sulfamethoxazole-Tmp Ds Tablet (Sulfamethoxazole/Trimethoprim) 1 Each Tablet 1 Tab PO BID [facility] Rx Capsule (Lactobacillus Casei/Folic Acid) 1 Each Capsule 1 Each PO HS Hydrocodone-Apap 5-325 (Hydrocodone Bit/Acetaminophen) 1 Each Tablet 1-2 Tab PO PRN Q6HRS PRN LAST DOSE GIVEN: DATE: TIME: Colace (Docusate Sodium) 100 Mg Capsule 1 Cap PO BID Vitals/I & O Vital Sign - Last 24 Hours 05/29/17 05/29/17 05/29/17 05/29/17 11:00 11:05 12:05 15:00 Temp 97.4 97.6 97.4 97.6 Pulse 83 82 Resp 22 20 B/P (MAP) 103/59 (74) 95/57 (70) Pulse Ox 96 96 95 O2 Delivery Room Air Room Air Room Air Room Air 05/29/17 05/29/17 05/29/17 05/29/17 16:24 19:10 20:00 23:10 Temp 98.3 98.0 98.3 98.0 Pulse 85 85 Resp 20 19 B/P (MAP) 99/62 (74) 102/63 (76) Pulse Ox 97 93 O2 Delivery Room Air Room Air Room Air Room Air 05/30/17 05/30/17 05/30/17 03:10 07:20 08:49 Temp 98.1 97.6 98.1 97.6 Pulse 88 82 Resp 18 17 B/P (MAP) 104/65 (78) 107/77 (87) Pulse Ox 92 94 97 O2 Delivery Room Air Room Air Room Air Intake and Output 05/29/17 05/29/17 05/30/17 15:00 23:00 07:00 Intake Total 600 ml 250 ml Output Total 600 ml 525 ml Balance -600 ml 600 ml -275 ml Nutrition Consultation Dietary Evaluation: Recommendations by RD: PPN/TPN Comments: REC Low Sodium diet Expected Outcomes/Goals: new goal: to meet > 75% est nutrition needs via po intake - met, goal ongoing Interpretation of weight loss: >1-2% in 1 week Malnutrition Findings: Food and Nutrition Intake (Sev: <50% est energy req 5days Weight Status: Overweight GLENN HERRERA MD May 30, 2017 09:12
--- NOTE | 2017-05-30 09:53 | PDOC ---
Infectious Disease Note Subjective Subjective feeling ok not coughing as much,improving no f/c/n/v/sob/d lt knee pain improved ROS ROS GEN: Denies fevers, chills, sweats HEENT: Denies blurred vision, sore throat CV: Denies chest pain RESP: Denies shortness of air, cough GI: Denies n/v/d NEURO: Denies confusion, dizziness MSK: Denies weakness, joint pain/swelling Vital Sign Vital Signs Vital Signs Date Time Temp Pulse Resp B/P (MAP) Pulse Ox O2 Delivery O2 Flow Rate FiO2 05/30/17 08:49 97 Room Air 05/30/17 07:20 97.6 82 17 107/77 (87) 97.6 05/29/17 08:27 2.0 Physical Exam PHYSICAL EXAM GENERAL: NAD, Alert HEENT: PERRL, icterus present NECK: Supple, no JVD, no LN LUNGS: Clear HEART: S1S2, no gallop, no murmur ABD: Soft, NT, no organomegaly, no rebound EXT: No edema, no cyanosis INSTRUCTOR PRIVATE: Alert, oriented x 3, no focal neurologic deficit SKIN: No rash IV: ok Labs Lab Laboratory Tests Test 05/29/17 11:20 White Blood Count 8.2 x10^3/uL (4.0-11.0) Red Blood Count 3.11 x10^6/uL (4.30-5.70) Hemoglobin 10.3 g/dL (13.0-17.5) Hematocrit 29.9 % (39.0-53.0) Mean Corpuscular Volume 96 fL (79-100) Mean Corpuscular Hemoglobin 33 pg (25-35) Mean Corpuscular Hemoglobin Concent 34 g/dL (31-37) Red Cell Distribution Width 16.2 % (11.5-14.5) Platelet Count 247 x10^3/uL (140-400) Neutrophils (%) (Auto) 81 % (31-73) Lymphocytes (%) (Auto) 5 % (24-48) Monocytes (%) (Auto) 12 % (0-9) Eosinophils (%) (Auto) 1 % (0-3) Basophils (%) (Auto) 1 % (0-3) Neutrophils # (Auto) 6.6 x10^3uL (1.8-7.7) Lymphocytes # (Auto) 0.4 x10^3/uL (1.0-4.8) Monocytes # (Auto) 1.0 x10^3/uL (0.0-1.1) Eosinophils # (Auto) 0.1 x10^3/uL (0.0-0.7) Basophils # (Auto) 0.1 x10^3/uL (0.0-0.2) Prothrombin Time 15.0 SEC (11.7-14.0) Prothromb Time International Ratio 1.3 (0.8-1.1) Sodium Level 140 mmol/L (136-145) Potassium Level 2.9 mmol/L (3.5-5.1) Chloride Level 105 mmol/L (98-107) Carbon Dioxide Level 24 mmol/L (21-32) Anion Gap 11 (6-14) Blood Urea Nitrogen 17 mg/dL (8-26) Creatinine 1.4 mg/dL (0.7-1.3) Estimated GFR (Cockcroft-Gault) 49.4 BUN/Creatinine Ratio 12 (6-20) Glucose Level 108 mg/dL (70-99) Calcium Level 8.0 mg/dL (8.5-10.1) Total Bilirubin 9.9 mg/dL (0.2-1.0) Aspartate Amino Transf (AST/SGOT) 135 U/L (15-37) Alanine Aminotransferase (ALT/SGPT) 54 U/L (16-63) Alkaline Phosphatase 352 U/L (46-116) Total Protein 6.1 g/dL (6.4-8.2) Albumin 1.6 g/dL (3.4-5.0) Albumin/Globulin Ratio 0.4 (1.0-1.7) Micro bc neg uc neg Pathology Soft tissue, "possible string from lungs", removal: - Fragments of skeletal muscle with associated macrophages and inflammatory cells. Objective Assessment 1. Choledocholithiasis.Recurrent jaundice.S/P ERCP 2.Leucocytosis likely reactive from ERCP 05/10,with stone removal,resolved 3.postprocedure pancreatitis improving slowly 3. Weight loss. 4. Malaise and fatigue. 5. History of Serratia marcescens bacteremia in 12/2016, treated. 6. Status post appendectomy and liver biopsy in 12/2016. 7. History of diverticulosis on recent colonoscopy. 8. Status post cholecystectomy, ERCP x 2 with sphincterotomy. 9. History of vomiting, now resolved. 10. GERD. 11. Hypertension. 12. DJD, chronic, stable. 13.coughed up a string of tissue,path noninfectious Plan Plan of Care probiotics F/u labs stent removal done, sputum with tubular long structure, path noninfectious, no more symptoms for 5 days monitor closely TINY MOLINA MD May 30, 2017 09:53
[2017-05-30 10:05] LABS: CALCIUM 8.2 mg/dL (8.5-10.1); CREATININE 1.2 mg/dL (0.7-1.3); POTASSIUM 3.2 mmol/L (3.5-5.1)
[2017-05-30] MEDS ORDERED: POTASSIUM CHLORIDE 20 MEQ TABLET.ER. PO ONE (10:30)
[2017-05-30 10:52] VITALS: BP 106/60
--- NOTE | 2017-05-30 12:34 | PDOC ---
Subjective: Subjective: Doing okay. Anxious to hear if potassium improved, says might get to DC today. Objective: Vital Signs: Vital Signs Date Time Temp Pulse Resp B/P (MAP) Pulse Ox O2 Delivery O2 Flow Rate FiO2 05/30/17 10:52 98.6 81 16 106/60 (75) 98 Room Air 98.6 05/30/17 08:00 2.0 Labs: Laboratory Tests Test 05/30/17 09:30 Sodium Level 140 mmol/L Potassium Level 3.2 mmol/L Chloride Level 106 mmol/L Carbon Dioxide Level 23 mmol/L Anion Gap 11 Blood Urea Nitrogen 15 mg/dL Creatinine 1.2 mg/dL Estimated GFR (Cockcroft-Gault) 59.0 Glucose Level 116 mg/dL Calcium Level 8.2 mg/dL PE: GEN: NAD LUNGS: CTAB HEART: RRR ABD: S/ND/NT SKIN: +jaundice NEURO/PSYCH: A & O 3 A/P: Choledocholithiasis, cholangitis -s/p ERCP w/ dilation of CBD stricture, stone extraction, and stent placement/ replaced 05/24 -bili improved (checked 05/29) Hypokalemia - improved Knee pain -- DC per primary. Follow-up w/ Dr. Arias re: Ursodiol. GUILLERMINA JAUREGUI May 30, 2017 12:34
--- NOTE | 2017-05-30 13:24 | PDOC ---
PROGRESS NOTES Subjective Subjective He feels better with his left knee. Objective Objective Vital Signs Date Time Temp Pulse Resp B/P (MAP) Pulse Ox O2 Delivery O2 Flow Rate FiO2 05/30/17 10:52 98.6 81 16 106/60 (75) 98 Room Air 98.6 05/30/17 08:00 2.0 Intake and Output 05/30/17 07:00 Intake Total 850 ml Output Total 1125 ml Balance -275 ml Intake Oral 850 ml Output Urine Total 1125 ml Physical Exam Physical Exam He is comfortable and alert and walking.He still had minimal redness over dorsal aspect of left knee. Assessment Assessment Problems Medical Problems: (1) Jaundice Status: Acute (2) Liver failure Status: Acute Plan Plan of Care I have advised his family to bring his left knee brace for use while up. Comment Review of Relevant I have reviewed the following items jadon (where applicable) has been applied. Labs Laboratory Tests Test 05/29/17 11:20 05/30/17 09:30 White Blood Count 8.2 x10^3/uL (4.0-11.0) Red Blood Count 3.11 x10^6/uL (4.30-5.70) Hemoglobin 10.3 g/dL (13.0-17.5) Hematocrit 29.9 % (39.0-53.0) Mean Corpuscular Volume 96 fL (79-100) Mean Corpuscular Hemoglobin 33 pg (25-35) Mean Corpuscular Hemoglobin Concent 34 g/dL (31-37) Red Cell Distribution Width 16.2 % (11.5-14.5) Platelet Count 247 x10^3/uL (140-400) Neutrophils (%) (Auto) 81 % (31-73) Lymphocytes (%) (Auto) 5 % (24-48) Monocytes (%) (Auto) 12 % (0-9) Eosinophils (%) (Auto) 1 % (0-3) Basophils (%) (Auto) 1 % (0-3) Neutrophils # (Auto) 6.6 x10^3uL (1.8-7.7) Lymphocytes # (Auto) 0.4 x10^3/uL (1.0-4.8) Monocytes # (Auto) 1.0 x10^3/uL (0.0-1.1) Eosinophils # (Auto) 0.1 x10^3/uL (0.0-0.7) Basophils # (Auto) 0.1 x10^3/uL (0.0-0.2) Prothrombin Time 15.0 SEC (11.7-14.0) Prothromb Time International Ratio 1.3 (0.8-1.1) Sodium Level 140 mmol/L (136-145) 140 mmol/L (136-145) Potassium Level 2.9 mmol/L (3.5-5.1) 3.2 mmol/L (3.5-5.1) Chloride Level 105 mmol/L (98-107) 106 mmol/L (98-107) Carbon Dioxide Level 24 mmol/L (21-32) 23 mmol/L (21-32) Anion Gap 11 (6-14) 11 (6-14) Blood Urea Nitrogen 17 mg/dL (8-26) 15 mg/dL (8-26) Creatinine 1.4 mg/dL (0.7-1.3) 1.2 mg/dL (0.7-1.3) Estimated GFR (Cockcroft-Gault) 49.4 59.0 BUN/Creatinine Ratio 12 (6-20) Glucose Level 108 mg/dL (70-99) 116 mg/dL (70-99) Calcium Level 8.0 mg/dL (8.5-10.1) 8.2 mg/dL (8.5-10.1) Total Bilirubin 9.9 mg/dL (0.2-1.0) Aspartate Amino Transf (AST/SGOT) 135 U/L (15-37) Alanine Aminotransferase (ALT/SGPT) 54 U/L (16-63) Alkaline Phosphatase 352 U/L (46-116) Total Protein 6.1 g/dL (6.4-8.2) Albumin 1.6 g/dL (3.4-5.0) Albumin/Globulin Ratio 0.4 (1.0-1.7) Laboratory Tests Test 05/30/17 09:30 Sodium Level 140 mmol/L (136-145) Potassium Level 3.2 mmol/L (3.5-5.1) Chloride Level 106 mmol/L (98-107) Carbon Dioxide Level 23 mmol/L (21-32) Anion Gap 11 (6-14) Blood Urea Nitrogen 15 mg/dL (8-26) Creatinine 1.2 mg/dL (0.7-1.3) Estimated GFR (Cockcroft-Gault) 59.0 Glucose Level 116 mg/dL (70-99) Calcium Level 8.2 mg/dL (8.5-10.1) Microbiology 05/09/17 Blood Culture - Final, Complete NO GROWTH AFTER 5 DAYS 05/19/17 Urine Culture - Final, Complete 05/19/17 Urine Culture Result 1 (CHELE) - Final, Complete Medications Current Medications Docusate Sodium (Colace) 100 mg BID PO Last administered on 05/30/17 07:38; Start 05/09/17 at 21:00 Acetaminophen/ Hydrocodone Bitart (Lortab 5/325) 1 tab PRN Q6HRS PRN PO PAIN; Start 05/09/17 at 14:15; Status Cancel Pantoprazole Sodium (Protonix) 40 mg DAILYAC PO ; Start 05/09/17 at 14:30; Stop 05/11/17 at 07:46; Status DC Diphenhydramine HCl (Benadryl) 25 mg PRN QHS PRN PO INSOMNIA Last administered on 05/14/17 22:07; Start 05/09/17 at 14:15 Acetaminophen/ Hydrocodone Bitart (Lortab 5/325) 1 tab PRN Q4HRS PRN PO MODERATE - SEVERE PAIN Last administered on 05/29/17 08:27; Start 05/09/17 at 14:15 Ondansetron HCl (Zofran) 4 mg PRN Q6HRS PRN IV NAUSEA/VOMITING; Start 05/09/17 at 14:15; Stop 05/10/17 at 16:18; Status DC Levofloxacin/ Dextrose 100 ml @ 100 mls/hr Q24H IV Last administered on 16:45; Start 05/09/17 at 16:00; Stop 05/10/17 at 10:51; Status DC Acetaminophen (Tylenol) 650 mg PRN Q6HRS PRN PO FEVER; Start 05/10/17 at 12:45 Ondansetron HCl (Zofran) 4 mg PRN Q6HRS PRN IV NAUSEA/VOMITING; Start 05/10/17 at 12:45 Morphine Sulfate 2 mg PRN Q2HR PRN IV PAIN Last administered on 05/16/17 23: 57; Start 05/10/17 at 12:45; Stop 05/18/17 at 17:46; Status DC Tramadol HCl (Ultram) 50 mg PRN Q6HRS PRN PO MILD PAIN Last administered on 13:22; Start 05/10/17 at 12:45 Hydralazine HCl (Apresoline Inj) 10 mg PRN Q4HRS PRN IVP ELEVATED BP, SEE COMMENTS; Start 05/10/17 at 12:45 Docusate Sodium (Colace) 100 mg PRN DAILY PRN PO CONSTIPATION; Start 05/10/17 at 12:45; Stop 05/18/17 at 17:46; Status DC Enoxaparin Sodium (Lovenox 40mg Syringe) 40 mg Q24H SQ Last administered on 12:14; Start 05/10/17 at 13:00; Stop 05/27/17 at 12:59; Status DC Iohexol (Omnipaque 300 Mg/ml) 100 ml STK-MED ONCE .ROUTE ; Start 05/10/17 at 14: 43; Stop 05/10/17 at 14:44; Status DC Ringer's Solution 1,000 ml @ 75 mls/hr 1X ONCE IV Last administered on 16:05; Start 05/10/17 at 16:15; Stop 05/11/17 at 05:34; Status DC Propofol 20 ml @ As Directed STK-MED ONCE IV ; Start 05/10/17 at 16:39; Stop at 16:40; Status DC Succinylcholine Chloride (Anectine) 200 mg STK-MED ONCE .ROUTE ; Start 05/10/17 at 16:39; Stop 05/10/17 at 16:40; Status DC Lidocaine HCl (Lidocaine Pf 2% Vial) 5 ml STK-MED ONCE .ROUTE ; Start 05/10/17 at 16:39; Stop 05/10/17 at 16:40; Status DC Phenylephrine HCl (Jeffrey-Synephrine Inj) 10 mg STK-MED ONCE .ROUTE ; Start at 16:41; Stop 05/10/17 at 16:42; Status DC Levofloxacin/ Dextrose 100 ml @ As Directed STK-MED ONCE IV ; Start 05/10/17 at 17:44; Stop 05/10/17 at 17:45; Status DC Lidocaine HCl (Lidocaine Pf 2% Vial) 5 ml STK-MED ONCE .ROUTE ; Start 05/10/17 at 18:57; Stop 05/10/17 at 18:58; Status DC Iohexol (Omnipaque 300 Mg/ml) 100 ml STK-MED ONCE INT CAT Last administered on 05/10/17 18:58; Start 05/10/17 at 18:58; Stop 05/10/17 at 19:00; Status DC Levofloxacin/ Dextrose 100 ml @ 100 mls/hr Q24H IV Last administered on 09:20; Start 05/11/17 at 08:00; Stop 05/12/17 at 19:03; Status DC Simethicone (Gas-X) 80 mg PRN AFTMEALHC PRN PO GAS / BLOATING Last administered on 05/20/17 20:47; Start 05/11/17 at 02:45 Morphine Sulfate 4 mg PRN Q2HR PRN IV SEVERE PAIN Last administered on 19:41; Start 05/11/17 at 06:15; Stop 05/16/17 at 21:36; Status DC Ketorolac Tromethamine (Toradol) 30 mg 1X ONCE IV Last administered on 07:57; Start 05/11/17 at 08:00; Stop 05/11/17 at 08:01; Status DC Sodium Chloride 1,000 ml @ 50 mls/hr Q20H IV Last administered on 05/15/17 13:42; Start 05/11/17 at 08:00; Stop 05/15/17 at 19:32; Status DC Pantoprazole Sodium (Protonix Vial) 40 mg DAILYAC IVP Last administered on 09:01; Start 05/11/17 at 08:00; Stop 05/15/17 at 19:15; Status DC Amino Acids/ Glycerin/ Electrolytes 1,000 ml @ 80 mls/hr [id number] IV Last administered on 05/18/17 11:29; Start 05/11/17 at 12:00; Stop 05/18/17 at 17: 46; Status DC Ketorolac Tromethamine (Toradol) 30 mg PRN Q6HRS PRN IV PAIN Last administered on 05/12/17 03:11; Start 05/11/17 at 12:00; Stop 05/15/17 at 10:00; Status DC Levofloxacin/ Dextrose 100 ml @ 100 mls/hr Q24H IV ; Start 05/11/17 at 18:00; Status Cancel Albuterol Sulfate (Ventolin Neb Soln) 2.5 mg PRN Q4HRS PRN NEB SHORTNESS OF BREATH Last administered on 05/18/17 09:21; Start 05/12/17 at 14:30 Levofloxacin (Levaquin) 500 mg DAILY PO Last administered on 05/21/17 08:13; Start 05/13/17 at 09:00; Stop 05/21/17 at 17:49; Status DC Lactobacillus Rhamnosus (Culturelle) 1 cap BID PO Last administered on 07:38; Start 05/12/17 at 21:00 Pneumococcal Polyvalent Vaccine (Do NOT chart on this placeholder) 1 each PRN DAILY PRN MC LAST DATE UNKNOWN; Start 05/14/17 at 03:30; Status Cancel Pneumococcal Polyvalent Vaccine (Pneumovax 23) 0.5 ml ONCE ONCE VAX IM ; Start 05/16/17 at 09:00; Stop 05/16/17 at 09:01; Status DC Furosemide (Lasix) 20 mg DAILY PO Last administered on 05/22/17 08:51; Start 05/15/17 at 17:45; Stop 05/22/17 at 17:47; Status DC Pantoprazole Sodium (Protonix) 40 mg DAILYAC PO Last administered on 07:38; Start 05/16/17 at 07:30 Polyethylene Glycol (miraLAX PACKET) 17 gm PRN BID PRN PO CONSTIPATION Last administered on 05/15/17 22:41; Start 05/15/17 at 19:30 Furosemide (Lasix) 20 mg 1X ONCE IVP Last administered on 05/15/17 22:42; Start 05/15/17 at 19:30; Stop 05/15/17 at 19:34; Status DC Iohexol (Omnipaque 300 Mg/ml) 30 ml 1X ONCE PO ; Start 05/16/17 at 09:30; Stop 05/16/17 at 09:32; Status DC Iohexol (Omnipaque 240 Mg/ml) 75 ml 1X ONCE IV ; Start 05/16/17 at 09:30; Stop 05/16/17 at 09:32; Status DC Info (Do NOT chart on this entry -- for MONITORING) 1 each PRN DAILY PRN MC SEE COMMENTS; Start 05/16/17 at 09:45; Stop 05/18/17 at 09:44; Status DC Iohexol (Omnipaque 300 Mg/ml) 75 ml 1X ONCE IV ; Start 05/16/17 at 09:45; Stop 05/16/17 at 09:48; Status DC Info (Do NOT chart on this entry -- for MONITORING) 1 each PRN DAILY PRN MC SEE COMMENTS; Start 05/16/17 at 10:00; Stop 05/18/17 at 09:59; Status DC Albuterol/ Ipratropium (Duoneb) 3 ml RTQID NEB Last administered on 05/29/17 16:24; Start 05/17/17 at 08:00; Stop 05/30/17 at 08:54; Status DC Info 1 each PRN DAILY PRN MC SEE COMMENTS Last administered on 05/21/17 12:57 ; Start 05/17/17 at 23:15; Stop 05/21/17 at 17:47; Status DC Sodium Chloride 90 meq/Potassium Chloride 50 meq/ Potassium Phosphate 13.6 mmol/ Magnesium Sulfate 10 meq/ Calcium Gluconate 10 meq/ Multivitamins 10 ml/Chromium / Copper/Manganese/ Seleni/Zn 1 ml/ Total Parenteral Nutrition/Amino Acids/ Dextrose/ Fat Emulsion Intravenous 1,512 ml @ 63 mls/hr TPN CONT IV ; Start 05/18/17 at 22:00; Stop 05/18/17 at 22:00; Status DC Sodium Chloride 90 meq/Potassium Chloride 50 meq/ Potassium Phosphate 13.6 mmol/ Magnesium Sulfate 10 meq/ Calcium Gluconate 10 meq/ Multivitamins 10 ml/Chromium / Copper/Manganese/ Seleni/Zn 1 ml/ Total Parenteral Nutrition/Amino Acids/ Dextrose/ Fat Emulsion Intravenous 1,512 ml @ 63 mls/hr TPN CONT IV Last administered on 05/18/17 22:26; Start 05/18/17 at 22:00; Stop 05/19/17 at 21 :59; Status DC Sodium Chloride 90 meq/Potassium Chloride 50 meq/ Potassium Phosphate 13.6 mmol/ Magnesium Sulfate 10 meq/ Calcium Gluconate 10 meq/ Multivitamins 10 ml/Chromium / Copper/Manganese/ Seleni/Zn 1 ml/ Total Parenteral Nutrition/Amino Acids/ Dextrose/ Fat Emulsion Intravenous 1,512 ml @ 63 mls/hr TPN CONT IV Last administered on 05/19/17 22:00; Start 05/19/17 at 22:00; Stop 05/20/17 at 21 :59; Status DC Tamsulosin HCl (Flomax) 0.4 mg QHS PO Last administered on 05/29/17 21:25; Start 05/19/17 at 21:00 Sodium Chloride 90 meq/Potassium Chloride 50 meq/ Potassium Phosphate 13.6 mmol/ Magnesium Sulfate 10 meq/ Calcium Gluconate 10 meq/ Multivitamins 10 ml/Chromium / Copper/Manganese/ Seleni/Zn 1 ml/ Total Parenteral Nutrition/Amino Acids/ Dextrose/ Fat Emulsion Intravenous 1,512 ml @ 63 mls/hr TPN CONT IV Last administered on 05/20/17 22:49; Start 05/20/17 at 22:00; Stop 05/21/17 at 17 :42; Status DC Sodium Chloride (Saline Mist Nasal) 1 federico PRN Q1HR PRN NS NASAL CONGESTION Last administered on 05/21/17 14:52; Start 05/20/17 at 17:45 Sodium Chloride 90 meq/Potassium Chloride 50 meq/ Potassium Phosphate 13.6 mmol/ Magnesium Sulfate 10 meq/ Calcium Gluconate 5 meq/ Multivitamins 10 ml/Chromium / Copper/Manganese/ Seleni/Zn 1 ml/ Total Parenteral Nutrition/Amino Acids/ Dextrose/ Fat Emulsion Intravenous 1,512 ml @ 63 mls/hr TPN CONT IV ; Start 05/21/17 at 22:00; Stop 05/21/17 at 22:00; Status DC Dextrose/Sodium Chloride 1,000 ml @ 50 mls/hr Q20H IV Last administered on 12:15; Start 05/21/17 at 17:45; Stop 05/27/17 at 12:59; Status DC Furosemide (Lasix) 40 mg DAILY IVP Last administered on 05/30/17 07:39; Start 05/23/17 at 09:00; Stop 05/30/17 at 09:11; Status DC Fentanyl Citrate (Fentanyl 2ml Vial) 25 mcg PRN Q5MIN PRN IV MILD PAIN; Start 05/25/17 at 07:00; Stop 05/25/17 at 14:58; Status DC Fentanyl Citrate (Fentanyl 2ml Vial) 50 mcg PRN Q5MIN PRN IV MODERATE PAIN; Start 05/25/17 at 07:00; Stop 05/25/17 at 14:58; Status DC Morphine Sulfate 1 mg PRN Q10MIN PRN IV SEVERE PAIN; Start 05/25/17 at 07:00; Stop 05/25/17 at 14:58; Status DC Ringer's Solution 1,000 ml @ 30 mls/hr Q24H IV ; Start 05/25/17 at 07:00; Stop 05/25/17 at 18:59; Status DC Lidocaine HCl (Xylocaine-Mpf 1% Vial) 2 ml PRN 1X PRN ID IV START; Start 05/25 at 07:00; Stop 05/26/17 at 06:59; Status DC Hydromorphone HCl (Dilaudid) 0.5 mg PRN Q10MIN PRN IV SEV PAIN, Second choice; Start 05/25/17 at 07:00; Stop 05/25/17 at 14:58; Status DC Prochlorperazine Edisylate (Compazine) 5 mg PACU PRN PRN IV NAUSEA, MRX1; Start 05/25/17 at 07:00; Stop 05/25/17 at 14:58; Status DC Potassium Chloride 50 ml @ 25 mls/hr 1X ONCE IV Last administered on t 16:31; Start 05/24/17 at 11:30; Stop 05/24/17 at 13:29; Status DC Carbamide Peroxide (Debrox) 5 drop 1X ONCE AD Last administered on 05/25/17t 16:44; Start 05/25/17 at 17:00; Stop 05/25/17 at 17:01; Status DC Zolpidem Tartrate (Ambien) 5 mg PRN QHS PRN PO INSOMNIA, MAY REPEAT IN 1HR Last administered on 05/29/17 23:42; Start 05/27/17 at 00:15 Methylprednisolone Acetate (DEPO-Medrol 40MG VIAL) 40 mg 1X ONCE IM ; Start at 10:30; Stop 05/29/17 at 10:31; Status DC Propofol 20 ml @ As Directed STK-MED ONCE IV ; Start 05/24/17 at 13:41; Stop 05/29/17 at 11:11; Status DC Propofol 20 ml @ As Directed STK-MED ONCE IV ; Start 05/24/17 at 14:04; Stop 05/29/17 at 11:11; Status DC Potassium Chloride (Klor-Con) 40 meq BID PO Last administered on 05/30/17t 07: 38; Start 05/29/17 at 12:15; Stop 05/30/17 at 15:00 Albuterol/ Ipratropium (Duoneb) 3 ml RTQID PRN NEB dyspnea; Start 05/30/17 at 09:00 Furosemide (Lasix) 40 mg DAILY PO ; Start 05/31/17 at 09:00 Potassium Chloride (Klor-Con) 40 meq 1X ONCE PO Last administered on 12:32; Start 05/30/17 at 10:30; Stop 05/30/17 at 10:31; Status DC Potassium Chloride (Klor-Con) 20 meq DAILYWBKFT PO ; Start 05/31/17 at 08:00 Active Scripts Active Pantoprazole Sodium 40 Mg Tablet.dr 40 Mg PO DAILYAC Reported Divalproex Sodium 500 Mg Tablet.dr 500 Mg PO BID Citalopram Hbr (Citalopram Hydrobromide) 20 Mg Tablet 20 Mg PO DAILY Vitamin D3 (Cholecalciferol (Vitamin D3)) 5,000 Unit Tablet 5,000 Unit PO WEEKLY Vitamin D3 (Cholecalciferol (Vitamin D3)) 5,000 Unit Tablet 5,000 Unit PO DAILY Thera-M (Multivits,,Other Min) 1 Each Tablet 1 Each PO DAILY Senna (Sennosides) 8.6 Mg Tablet 8.6 Mg PO DAILY Risperidone 0.5 Mg Tablet 0.25 Mg PO BID Tradjenta (Linagliptin) 5 Mg Tablet 5 Mg PO DAILY Olanzapine 5 Mg Tablet 2.5 Mg PO PRN Q2HRS PRN Potassium Chloride 10 Meq Tablet.er 10 Meq PO DAILY Mirtazapine 15 Mg Tablet 15 Mg PO QHS Gabapentin 100 Mg Capsule 200 Mg PO TID Omeprazole 20 Mg Capsule.dr 20 Mg PO PRN Sulfamethoxazole-Tmp Ds Tablet (Sulfamethoxazole/Trimethoprim) 1 Each Tablet 1 Tab PO BID [facility] Rx Capsule (Lactobacillus Casei/Folic Acid) 1 Each Capsule 1 Each PO HS Hydrocodone-Apap 5-325 (Hydrocodone Bit/Acetaminophen) 1 Each Tablet 1-2 Tab PO PRN Q6HRS PRN LAST DOSE GIVEN: DATE: TIME: Colace (Docusate Sodium) 100 Mg Capsule 1 Cap PO BID Vitals/I & O Vital Sign - Last 24 Hours 05/29/17 05/29/17 05/29/17 05/29/17 15:00 16:24 19:10 20:00 Temp 97.6 98.3 97.6 98.3 Pulse 82 85 Resp 20 20 B/P (MAP) 95/57 (70) 99/62 (74) Pulse Ox 95 97 O2 Delivery Room Air Room Air Room Air Room Air 05/29/17 05/30/17 05/30/17 05/30/17 23:10 03:10 07:20 08:00 Temp 98.0 98.1 97.6 98.0 98.1 97.6 Pulse 85 88 82 Resp 19 18 17 B/P (MAP) 102/63 (76) 104/65 (78) 107/77 (87) Pulse Ox 93 92 94 O2 Delivery Room Air Room Air Room Air Room Air O2 Flow Rate 2.0 05/30/17 05/30/17 08:49 10:52 Temp 98.6 98.6 Pulse 81 Resp 16 B/P (MAP) 106/60 (75) Pulse Ox 97 98 O2 Delivery Room Air Room Air Intake and Output 05/29/17 05/29/17 05/30/17 15:00 23:00 07:00 Intake Total 600 ml 250 ml Output Total 600 ml 525 ml Balance -600 ml 600 ml -275 ml Nutrition Consultation Dietary Evaluation: Recommendations by RD: PPN/TPN Comments: REC Low Sodium diet Expected Outcomes/Goals: new goal: to meet > 75% est nutrition needs via po intake - met, goal ongoing Interpretation of weight loss: >1-2% in 1 week Malnutrition Findings: Food and Nutrition Intake (Sev: <50% est energy req 5days Weight Status: Overweight ALEXIA RICKS MD May 30, 2017 13:24
[2017-05-30 14:33] VITALS: BP 100/63
[2017-05-30 19:00] VITALS: BP 97/70
[2017-05-30] MEDS: TAMSULOSIN 0.4 MG CAP.ER.24H. PO SCH (21:35)
[2017-05-30] MEDS: ZOLPIDEM 5 MG TABLET. PO PRN (21:36)
[2017-05-30 23:39] VITALS: BP 94/63
[2017-05-31 03:00] VITALS: BP 95/64
[2017-05-31 07:03] VITALS: BP 102/62
[2017-05-31] MEDS ORDERED: POTASSIUM CHLORIDE 20 MEQ TABLET.ER. PO SCH (08:00)
[2017-05-31] MEDS ORDERED: FUROSEMIDE 40 MG TABLET. PO SCH (09:00)
[2017-05-31] MEDS: DOCUSATE SODIUM 100 MG CAPSULE. PO SCH (09:15)
[2017-05-31] MEDS: PANTOPRAZOLE 40 MG TABLET.DR. PO SCH (09:15)
[2017-05-31] MEDS: LACTOBACILLUS RHAMNOSUS GG 1 CAPSULE. PO SCH (09:15)
--- NOTE | 2017-05-31 10:05 | PDOC ---
Objective: Objective: Reviewed w/ RN, pt anxious to DC - held yesterday re: low K+, no labs today. Vital Signs: Vital Signs Date Time Temp Pulse Resp B/P (MAP) Pulse Ox O2 Delivery O2 Flow Rate FiO2 05/31/17 07:03 98.4 65 19 102/62 (75) 95 Room Air 98.4 05/30/17 08:00 2.0 PE: GEN: NAD NEURO/PSYCH: asleep, did not awaken A/P: Choledocholithiasis, cholangitis -s/p ERCP w/ dilation of CBD stricture, stone extraction, and stent placement/ replaced 05/24 -bili improved (checked 05/29) Hypokalemia - improved (checked 05/30) -- CMP. Add Ursodiol. DC per primary. GUILLERMINA JAUREGUI May 31, 2017 10:05
[2017-05-31 10:37] VITALS: BP 99/60
[2017-05-31] MEDS ORDERED: HYDR-2758 PO (11:30)
[2017-05-31] MEDS ORDERED: ZOLP5TAB PO (11:30)
[2017-05-31 12:02] LABS: ALBUMIN 1.9 g/dL (3.4-5.0); ALBUMIN/GLOBULIN RATIO 0.4 (1.0-1.7); CALCIUM 8.9 mg/dL (8.5-10.1); CREATININE 1.4 mg/dL (0.7-1.3); GFR 49.4; POTASSIUM 4.1 mmol/L (3.5-5.1); TOTAL BILIRUBIN 9.8 mg/dL (0.2-1.0); TOTAL PROTEIN 7.1 g/dL (6.4-8.2)
[2017-05-31] MEDS ORDERED: URSODIOL 300 MG CAPSULE. PO SCH (14:00)
[2017-05-31 14:40] VITALS: BP 106/73
--- NOTE | 2017-05-31 17:25 | PDOC ---
PROGRESS NOTES Subjective Subjective He feels better with his left knee pain. Objective Objective Vital Signs Date Time Temp Pulse Resp B/P (MAP) Pulse Ox O2 Delivery O2 Flow Rate FiO2 05/31/17 14:40 98.7 84 16 106/73 (84) 94 Room Air 98.7 05/31/17 08:00 2.0 Intake and Output 05/31/17 07:00 Intake Total 805 ml Output Total 4350 ml Balance -3545 ml Intake Oral 805 ml Output Urine Total 4350 ml Physical Exam Physical Exam He is walking independently at roller walker level. Assessment Assessment Problems Medical Problems: (1) Jaundice Status: Acute (2) Liver failure Status: Acute Plan Plan of Care Agree with plans for SNF transfer. Comment Review of Relevant I have reviewed the following items jadon (where applicable) has been applied. Labs Laboratory Tests Test 05/30/17 09:30 05/31/17 11:30 Sodium Level 140 mmol/L (136-145) 137 mmol/L (136-145) Potassium Level 3.2 mmol/L (3.5-5.1) 4.1 mmol/L (3.5-5.1) Chloride Level 106 mmol/L (98-107) 105 mmol/L (98-107) Carbon Dioxide Level 23 mmol/L (21-32) 24 mmol/L (21-32) Anion Gap 11 (6-14) 8 (6-14) Blood Urea Nitrogen 15 mg/dL (8-26) 18 mg/dL (8-26) Creatinine 1.2 mg/dL (0.7-1.3) 1.4 mg/dL (0.7-1.3) Estimated GFR (Cockcroft-Gault) 59.0 49.4 Glucose Level 116 mg/dL (70-99) 114 mg/dL (70-99) Calcium Level 8.2 mg/dL (8.5-10.1) 8.9 mg/dL (8.5-10.1) BUN/Creatinine Ratio 13 (6-20) Total Bilirubin 9.8 mg/dL (0.2-1.0) Aspartate Amino Transf (AST/SGOT) 152 U/L (15-37) Alanine Aminotransferase (ALT/SGPT) 57 U/L (16-63) Alkaline Phosphatase 435 U/L (46-116) Total Protein 7.1 g/dL (6.4-8.2) Albumin 1.9 g/dL (3.4-5.0) Albumin/Globulin Ratio 0.4 (1.0-1.7) Laboratory Tests Test 05/31/17 11:30 Sodium Level 137 mmol/L (136-145) Potassium Level 4.1 mmol/L (3.5-5.1) Chloride Level 105 mmol/L (98-107) Carbon Dioxide Level 24 mmol/L (21-32) Anion Gap 8 (6-14) Blood Urea Nitrogen 18 mg/dL (8-26) Creatinine 1.4 mg/dL (0.7-1.3) Estimated GFR (Cockcroft-Gault) 49.4 BUN/Creatinine Ratio 13 (6-20) Glucose Level 114 mg/dL (70-99) Calcium Level 8.9 mg/dL (8.5-10.1) Total Bilirubin 9.8 mg/dL (0.2-1.0) Aspartate Amino Transf (AST/SGOT) 152 U/L (15-37) Alanine Aminotransferase (ALT/SGPT) 57 U/L (16-63) Alkaline Phosphatase 435 U/L (46-116) Total Protein 7.1 g/dL (6.4-8.2) Albumin 1.9 g/dL (3.4-5.0) Albumin/Globulin Ratio 0.4 (1.0-1.7) Microbiology 05/09/17 Blood Culture - Final, Complete NO GROWTH AFTER 5 DAYS 05/19/17 Urine Culture - Final, Complete 05/19/17 Urine Culture Result 1 (CHELE) - Final, Complete Medications Current Medications Docusate Sodium (Colace) 100 mg BID PO Last administered on 05/31/17t 09:15; Start 05/09/17 at 21:00; Stop 05/31/17 at 16:38; Status DC Acetaminophen/ Hydrocodone Bitart (Lortab 5/325) 1 tab PRN Q6HRS PRN PO PAIN; Start 05/09/17 at 14:15; Status Cancel Pantoprazole Sodium (Protonix) 40 mg DAILYAC PO ; Start 05/09/17 at 14:30; Stop 05/11/17 at 07:46; Status DC Diphenhydramine HCl (Benadryl) 25 mg PRN QHS PRN PO INSOMNIA Last administered on 05/14/17 22:07; Start 05/09/17 at 14:15; Stop 05/31/17 at 16:38; Status DC Acetaminophen/ Hydrocodone Bitart (Lortab 5/325) 1 tab PRN Q4HRS PRN PO MODERATE - SEVERE PAIN Last administered on 05/29/17 08:27; Start 05/09/17 at 14:15; Stop 05/31/17 at 16:38; Status DC Ondansetron HCl (Zofran) 4 mg PRN Q6HRS PRN IV NAUSEA/VOMITING; Start 05/09/17 at 14:15; Stop 05/10/17 at 16:18; Status DC Levofloxacin/ Dextrose 100 ml @ 100 mls/hr Q24H IV Last administered on 16:45; Start 05/09/17 at 16:00; Stop 05/10/17 at 10:51; Status DC Acetaminophen (Tylenol) 650 mg PRN Q6HRS PRN PO FEVER; Start 05/10/17 at 12:45 ; Stop 05/31/17 at 16:38; Status DC Ondansetron HCl (Zofran) 4 mg PRN Q6HRS PRN IV NAUSEA/VOMITING; Start 05/10/17 at 12:45; Stop 05/31/17 at 16:38; Status DC Morphine Sulfate 2 mg PRN Q2HR PRN IV PAIN Last administered on 05/16/17 23: 57; Start 05/10/17 at 12:45; Stop 05/18/17 at 17:46; Status DC Tramadol HCl (Ultram) 50 mg PRN Q6HRS PRN PO MILD PAIN Last administered on 13:22; Start 05/10/17 at 12:45; Stop 05/31/17 at 16:38; Status DC Hydralazine HCl (Apresoline Inj) 10 mg PRN Q4HRS PRN IVP ELEVATED BP, SEE COMMENTS; Start 05/10/17 at 12:45; Stop 05/31/17 at 16:38; Status DC Docusate Sodium (Colace) 100 mg PRN DAILY PRN PO CONSTIPATION; Start 05/10/17 at 12:45; Stop 05/18/17 at 17:46; Status DC Enoxaparin Sodium (Lovenox 40mg Syringe) 40 mg Q24H SQ Last administered on 12:14; Start 05/10/17 at 13:00; Stop 05/27/17 at 12:59; Status DC Iohexol (Omnipaque 300 Mg/ml) 100 ml STK-MED ONCE .ROUTE ; Start 05/10/17 at 14: 43; Stop 05/10/17 at 14:44; Status DC Ringer's Solution 1,000 ml @ 75 mls/hr 1X ONCE IV Last administered on 16:05; Start 05/10/17 at 16:15; Stop 05/11/17 at 05:34; Status DC Propofol 20 ml @ As Directed STK-MED ONCE IV ; Start 05/10/17 at 16:39; Stop at 16:40; Status DC Succinylcholine Chloride (Anectine) 200 mg STK-MED ONCE .ROUTE ; Start 05/10/17 at 16:39; Stop 05/10/17 at 16:40; Status DC Lidocaine HCl (Lidocaine Pf 2% Vial) 5 ml STK-MED ONCE .ROUTE ; Start 05/10/17 at 16:39; Stop 05/10/17 at 16:40; Status DC Phenylephrine HCl (Jeffrey-Synephrine Inj) 10 mg STK-MED ONCE .ROUTE ; Start at 16:41; Stop 05/10/17 at 16:42; Status DC Levofloxacin/ Dextrose 100 ml @ As Directed STK-MED ONCE IV ; Start 05/10/17 at 17:44; Stop 05/10/17 at 17:45; Status DC Lidocaine HCl (Lidocaine Pf 2% Vial) 5 ml STK-MED ONCE .ROUTE ; Start 05/10/17 at 18:57; Stop 05/10/17 at 18:58; Status DC Iohexol (Omnipaque 300 Mg/ml) 100 ml STK-MED ONCE INT CAT Last administered on 05/10/17 18:58; Start 05/10/17 at 18:58; Stop 05/10/17 at 19:00; Status DC Levofloxacin/ Dextrose 100 ml @ 100 mls/hr Q24H IV Last administered on 09:20; Start 05/11/17 at 08:00; Stop 05/12/17 at 19:03; Status DC Simethicone (Gas-X) 80 mg PRN AFTMEALHC PRN PO GAS / BLOATING Last administered on 05/20/17 20:47; Start 05/11/17 at 02:45; Stop 05/31/17 at 16: 38; Status DC Morphine Sulfate 4 mg PRN Q2HR PRN IV SEVERE PAIN Last administered on 19:41; Start 05/11/17 at 06:15; Stop 05/16/17 at 21:36; Status DC Ketorolac Tromethamine (Toradol) 30 mg 1X ONCE IV Last administered on 07:57; Start 05/11/17 at 08:00; Stop 05/11/17 at 08:01; Status DC Sodium Chloride 1,000 ml @ 50 mls/hr Q20H IV Last administered on 05/15/17 13:42; Start 05/11/17 at 08:00; Stop 05/15/17 at 19:32; Status DC Pantoprazole Sodium (Protonix Vial) 40 mg DAILYAC IVP Last administered on 09:01; Start 05/11/17 at 08:00; Stop 05/15/17 at 19:15; Status DC Amino Acids/ Glycerin/ Electrolytes 1,000 ml @ 80 mls/hr [id number] IV Last administered on 05/18/17 11:29; Start 05/11/17 at 12:00; Stop 05/18/17 at 17: 46; Status DC Ketorolac Tromethamine (Toradol) 30 mg PRN Q6HRS PRN IV PAIN Last administered on 05/12/17 03:11; Start 05/11/17 at 12:00; Stop 05/15/17 at 10:00; Status DC Levofloxacin/ Dextrose 100 ml @ 100 mls/hr Q24H IV ; Start 05/11/17 at 18:00; Status Cancel Albuterol Sulfate (Ventolin Neb Soln) 2.5 mg PRN Q4HRS PRN NEB SHORTNESS OF BREATH Last administered on 05/18/17 09:21; Start 05/12/17 at 14:30; Stop at 16:38; Status DC Levofloxacin (Levaquin) 500 mg DAILY PO Last administered on 05/21/17 08:13; Start 05/13/17 at 09:00; Stop 05/21/17 at 17:49; Status DC Lactobacillus Rhamnosus (Culturelle) 1 cap BID PO Last administered on 09:15; Start 05/12/17 at 21:00; Stop 05/31/17 at 16:38; Status DC Pneumococcal Polyvalent Vaccine (Do NOT chart on this placeholder) 1 each PRN DAILY PRN MC LAST DATE UNKNOWN; Start 05/14/17 at 03:30; Status Cancel Pneumococcal Polyvalent Vaccine (Pneumovax 23) 0.5 ml ONCE ONCE VAX IM ; Start 05/16/17 at 09:00; Stop 05/16/17 at 09:01; Status DC Furosemide (Lasix) 20 mg DAILY PO Last administered on 05/22/17 08:51; Start 05/15/17 at 17:45; Stop 05/22/17 at 17:47; Status DC Pantoprazole Sodium (Protonix) 40 mg DAILYAC PO Last administered on 09:15; Start 05/16/17 at 07:30; Stop 05/31/17 at 16:38; Status DC Polyethylene Glycol (miraLAX PACKET) 17 gm PRN BID PRN PO CONSTIPATION Last administered on 05/15/17 22:41; Start 05/15/17 at 19:30; Stop 05/31/17 at 16 :38; Status DC Furosemide (Lasix) 20 mg 1X ONCE IVP Last administered on 05/15/17 22:42; Start 05/15/17 at 19:30; Stop 05/15/17 at 19:34; Status DC Iohexol (Omnipaque 300 Mg/ml) 30 ml 1X ONCE PO ; Start 05/16/17 at 09:30; Stop 05/16/17 at 09:32; Status DC Iohexol (Omnipaque 240 Mg/ml) 75 ml 1X ONCE IV ; Start 05/16/17 at 09:30; Stop 05/16/17 at 09:32; Status DC Info (Do NOT chart on this entry -- for MONITORING) 1 each PRN DAILY PRN MC SEE COMMENTS; Start 05/16/17 at 09:45; Stop 05/18/17 at 09:44; Status DC Iohexol (Omnipaque 300 Mg/ml) 75 ml 1X ONCE IV ; Start 05/16/17 at 09:45; Stop 05/16/17 at 09:48; Status DC Info (Do NOT chart on this entry -- for MONITORING) 1 each PRN DAILY PRN MC SEE COMMENTS; Start 05/16/17 at 10:00; Stop 05/18/17 at 09:59; Status DC Albuterol/ Ipratropium (Duoneb) 3 ml RTQID NEB Last administered on 05/29/17 16:24; Start 05/17/17 at 08:00; Stop 05/30/17 at 08:54; Status DC Info 1 each PRN DAILY PRN MC SEE COMMENTS Last administered on 05/21/17 12:57 ; Start 05/17/17 at 23:15; Stop 05/21/17 at 17:47; Status DC Sodium Chloride 90 meq/Potassium Chloride 50 meq/ Potassium Phosphate 13.6 mmol/ Magnesium Sulfate 10 meq/ Calcium Gluconate 10 meq/ Multivitamins 10 ml/Chromium / Copper/Manganese/ Seleni/Zn 1 ml/ Total Parenteral Nutrition/Amino Acids/ Dextrose/ Fat Emulsion Intravenous 1,512 ml @ 63 mls/hr TPN CONT IV ; Start 05/18/17 at 22:00; Stop 05/18/17 at 22:00; Status DC Sodium Chloride 90 meq/Potassium Chloride 50 meq/ Potassium Phosphate 13.6 mmol/ Magnesium Sulfate 10 meq/ Calcium Gluconate 10 meq/ Multivitamins 10 ml/Chromium / Copper/Manganese/ Seleni/Zn 1 ml/ Total Parenteral Nutrition/Amino Acids/ Dextrose/ Fat Emulsion Intravenous 1,512 ml @ 63 mls/hr TPN CONT IV Last administered on 05/18/17 22:26; Start 05/18/17 at 22:00; Stop 05/19/17 at 21 :59; Status DC Sodium Chloride 90 meq/Potassium Chloride 50 meq/ Potassium Phosphate 13.6 mmol/ Magnesium Sulfate 10 meq/ Calcium Gluconate 10 meq/ Multivitamins 10 ml/Chromium / Copper/Manganese/ Seleni/Zn 1 ml/ Total Parenteral Nutrition/Amino Acids/ Dextrose/ Fat Emulsion Intravenous 1,512 ml @ 63 mls/hr TPN CONT IV Last administered on 05/19/17 22:00; Start 05/19/17 at 22:00; Stop 05/20/17 at 21 :59; Status DC Tamsulosin HCl (Flomax) 0.4 mg QHS PO Last administered on 05/30/17 21:35; Start 05/19/17 at 21:00; Stop 05/31/17 at 16:38; Status DC Sodium Chloride 90 meq/Potassium Chloride 50 meq/ Potassium Phosphate 13.6 mmol/ Magnesium Sulfate 10 meq/ Calcium Gluconate 10 meq/ Multivitamins 10 ml/Chromium / Copper/Manganese/ Seleni/Zn 1 ml/ Total Parenteral Nutrition/Amino Acids/ Dextrose/ Fat Emulsion Intravenous 1,512 ml @ 63 mls/hr TPN CONT IV Last administered on 05/20/17 22:49; Start 05/20/17 at 22:00; Stop 05/21/17 at 17 :42; Status DC Sodium Chloride (Saline Mist Nasal) 1 federico PRN Q1HR PRN NS NASAL CONGESTION Last administered on 05/21/17 14:52; Start 05/20/17 at 17:45; Stop 05/31/17 at 16:38; Status DC Sodium Chloride 90 meq/Potassium Chloride 50 meq/ Potassium Phosphate 13.6 mmol/ Magnesium Sulfate 10 meq/ Calcium Gluconate 5 meq/ Multivitamins 10 ml/Chromium / Copper/Manganese/ Seleni/Zn 1 ml/ Total Parenteral Nutrition/Amino Acids/ Dextrose/ Fat Emulsion Intravenous 1,512 ml @ 63 mls/hr TPN CONT IV ; Start 05/21/17 at 22:00; Stop 05/21/17 at 22:00; Status DC Dextrose/Sodium Chloride 1,000 ml @ 50 mls/hr Q20H IV Last administered on 12:15; Start 05/21/17 at 17:45; Stop 05/27/17 at 12:59; Status DC Furosemide (Lasix) 40 mg DAILY IVP Last administered on 05/30/17 07:39; Start 05/23/17 at 09:00; Stop 05/30/17 at 09:11; Status DC Fentanyl Citrate (Fentanyl 2ml Vial) 25 mcg PRN Q5MIN PRN IV MILD PAIN; Start 05/25/17 at 07:00; Stop 05/25/17 at 14:58; Status DC Fentanyl Citrate (Fentanyl 2ml Vial) 50 mcg PRN Q5MIN PRN IV MODERATE PAIN; Start 05/25/17 at 07:00; Stop 05/25/17 at 14:58; Status DC Morphine Sulfate 1 mg PRN Q10MIN PRN IV SEVERE PAIN; Start 05/25/17 at 07:00; Stop 05/25/17 at 14:58; Status DC Ringer's Solution 1,000 ml @ 30 mls/hr Q24H IV ; Start 05/25/17 at 07:00; Stop 05/25/17 at 18:59; Status DC Lidocaine HCl (Xylocaine-Mpf 1% Vial) 2 ml PRN 1X PRN ID IV START; Start 05/25 at 07:00; Stop 05/26/17 at 06:59; Status DC Hydromorphone HCl (Dilaudid) 0.5 mg PRN Q10MIN PRN IV SEV PAIN, Second choice; Start 05/25/17 at 07:00; Stop 05/25/17 at 14:58; Status DC Prochlorperazine Edisylate (Compazine) 5 mg PACU PRN PRN IV NAUSEA, MRX1; Start 05/25/17 at 07:00; Stop 05/25/17 at 14:58; Status DC Potassium Chloride 50 ml @ 25 mls/hr 1X ONCE IV Last administered on 16:31; Start 05/24/17 at 11:30; Stop 05/24/17 at 13:29; Status DC Carbamide Peroxide (Debrox) 5 drop 1X ONCE AD Last administered on 05/25/17 16:44; Start 05/25/17 at 17:00; Stop 05/25/17 at 17:01; Status DC Zolpidem Tartrate (Ambien) 5 mg PRN QHS PRN PO INSOMNIA, MAY REPEAT IN 1HR Last administered on 05/30/17t 21:36; Start 05/27/17 at 00:15; Stop 05/31/17 at 16:38; Status DC Methylprednisolone Acetate (DEPO-Medrol 40MG VIAL) 40 mg 1X ONCE IM ; Start at 10:30; Stop 05/29/17 at 10:31; Status DC Propofol 20 ml @ As Directed STK-MED ONCE IV ; Start 05/24/17 at 13:41; Stop 05/29/17 at 11:11; Status DC Propofol 20 ml @ As Directed STK-MED ONCE IV ; Start 05/24/17 at 14:04; Stop 05/29/17 at 11:11; Status DC Potassium Chloride (Klor-Con) 40 meq BID PO Last administered on 05/30/17 07: 38; Start 05/29/17 at 12:15; Stop 05/30/17 at 15:00; Status DC Albuterol/ Ipratropium (Duoneb) 3 ml RTQID PRN NEB dyspnea; Start 05/30/17 at 09:00; Stop 05/31/17 at 16:38; Status DC Furosemide (Lasix) 40 mg DAILY PO Last administered on 05/31/17 09:15; Start 05/31/17 at 09:00; Stop 05/31/17 at 16:38; Status DC Potassium Chloride (Klor-Con) 40 meq 1X ONCE PO Last administered on 12:32; Start 05/30/17 at 10:30; Stop 05/30/17 at 10:31; Status DC Potassium Chloride (Klor-Con) 20 meq DAILYWBKFT PO Last administered on 09:15; Start 05/31/17 at 08:00; Stop 05/31/17 at 16:38; Status DC Methylprednisolone Acetate (DEPO-Medrol 40MG VIAL) 40 mg STK-MED ONCE .ROUTE ; Start 05/29/17 at 10:30; Stop 05/30/17 at 21:42; Status DC Ursodiol (Actigall) 300 mg TID PO Last administered on 05/31/17 15:36; Start 05/31/17 at 14:00; Stop 05/31/17 at 16:38; Status DC Active Scripts Active Ambien (Zolpidem Tartrate) 5 Mg Tablet 5 Mg PO PRN QHS PRN Hydrocodone-Apap 5-325 (Hydrocodone Bit/Acetaminophen) 1 Each Tablet 1 Tab PO PRN Q6HRS PRN Pantoprazole Sodium 40 Mg Tablet. 40 Mg PO DAILYAC Reported Divalproex Sodium 500 Mg Tablet. 500 Mg PO BID Citalopram Hbr (Citalopram Hydrobromide) 20 Mg Tablet 20 Mg PO DAILY Vitamin D3 (Cholecalciferol (Vitamin D3)) 5,000 Unit Tablet 5,000 Unit PO WEEKLY Vitamin D3 (Cholecalciferol (Vitamin D3)) 5,000 Unit Tablet 5,000 Unit PO DAILY Thera-M (Multivits, W-Fe,Other Min) 1 Each Tablet 1 Each PO DAILY Senna (Sennosides) 8.6 Mg Tablet 8.6 Mg PO DAILY Risperidone 0.5 Mg Tablet 0.25 Mg PO BID Tradjenta (Linagliptin) 5 Mg Tablet 5 Mg PO DAILY Olanzapine 5 Mg Tablet 2.5 Mg PO PRN Q2HRS PRN Potassium Chloride 10 Meq Tablet.er 10 Meq PO DAILY Mirtazapine 15 Mg Tablet 15 Mg PO QHS Gabapentin 100 Mg Capsule 200 Mg PO TID Omeprazole 20 Mg Capsule.dr 20 Mg PO PRN Sulfamethoxazole-Tmp Ds Tablet (Sulfamethoxazole/Trimethoprim) 1 Each Tablet 1 Tab PO BID Restora Rx Capsule (Lactobacillus Casei/Folic Acid) 1 Each Capsule 1 Each PO HS Colace (Docusate Sodium) 100 Mg Capsule 1 Cap PO BID Vitals/I & O Vital Sign - Last 24 Hours 05/30/17 05/30/17 05/30/17 05/31/17 19:00 20:00 23:39 03:00 Temp 98.3 98.3 97.9 98.3 98.3 97.9 Pulse 77 83 77 Resp 16 16 16 B/P (MAP) 97/70 (79) 94/63 (73) 95/64 (74) Pulse Ox 97 94 91 O2 Delivery Room Air Room Air Room Air Room Air 05/31/17 05/31/17 05/31/17 05/31/17 07:03 08:00 10:37 14:40 Temp 98.4 98.3 98.7 98.4 98.3 98.7 Pulse 65 79 84 Resp 19 16 16 B/P (MAP) 102/62 (75) 99/60 (73) 106/73 (84) Pulse Ox 95 95 94 O2 Delivery Room Air Room Air Room Air Room Air O2 Flow Rate 2.0 Intake and Output 05/30/17 05/30/17 05/31/17 15:00 23:00 07:00 Intake Total 600 ml 205 ml Output Total 1650 ml 2300 ml 400 ml Balance -1650 ml -1700 ml -195 ml Nutrition Consultation Dietary Evaluation: Recommendations by RD: PPN/TPN Comments: REC Low Sodium diet Expected Outcomes/Goals: new goal: to meet > 75% est nutrition needs via po intake - met, goal ongoing Interpretation of weight loss: >1-2% in 1 week Malnutrition Findings: Food and Nutrition Intake (Sev: <50% est energy req 5days Weight Status: Overweight ALEXIA RICKS MD May 31, 2017 17:25
--- NOTE | 2017-06-05 12:38 | PDOC3 ---
Discharge Summary Visit Information Date of Admission: May 09, 2017 Date of Discharge: May 31, 2017 Final Diagnosis 1. Choledocholithiasis: s/p ERCP 05/10 with CBD stone removal and stent placement. removal of obstructed stent on 05/24. prior biliary obstruction with stones, s/p cholecystectomy and sphincterectomy 08/2015 2. post ERCP pancreatitis: resolved 3. obstructive hepatitis: very slow improvement in LFTs, eileen bili. plans for Ursodiol later 4. Hypoalbuminemia: malnutrition on admit 5. 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 CAD: no sx. 7. HTN: well controlled 8. Fluid overload: 2/2 copious IVF during admission, very low albumin. 9. PNA: s/p levaquin x10d, 9. left knee pain, injury from awkward movement last night, has prior knee injection with good success, 10, weakness and debility, need rehab Problems Medical Problems: (1) Jaundice Status: Acute (2) Liver failure Status: Acute Brief Hospital Course Allergies Allergies Coded Allergies Type Severity Reaction Last Updated Verified No Known Drug Allergies 05/24/17 No Brief Hospital Course Mr. Cho is a 76 old [sex] who presented with [ ] Discharge Information Condition at Discharge: Improved Follow Up: Weeks Disposition/Orders: D/C to Another Facility Scheduled Cholecalciferol (Vitamin D3) (Vitamin D3), 5,000 UNIT PO DAILY, (Reported) Cholecalciferol (Vitamin D3) (Vitamin D3), 5,000 UNIT PO WEEKLY, (Reported) Citalopram Hydrobromide (Citalopram Hbr), 20 MG PO DAILY, (Reported) Divalproex Sodium (Divalproex Sodium), 500 MG PO BID, (Reported) Docusate Sodium (Colace), 1 CAP PO BID, (Reported) Gabapentin (Gabapentin), 200 MG PO TID, (Reported) Lactobacillus Casei/Folic Acid (Restora Rx Capsule), 1 EACH PO HS, (Reported) Linagliptin (Tradjenta), 5 MG PO DAILY, (Reported) Mirtazapine (Mirtazapine), 15 MG PO QHS, (Reported) Multivits, W-Fe,Other Min (Thera-M), 1 EACH PO DAILY, (Reported) Omeprazole (Omeprazole), 20 MG PO PRN, (Reported) Pantoprazole Sodium (Pantoprazole Sodium), 40 MG PO DAILYAC Potassium Chloride (Potassium Chloride), 10 MEQ PO DAILY, (Reported) Risperidone (Risperidone), 0.25 MG PO BID, (Reported) Sennosides (Senna), 8.6 MG PO DAILY, (Reported) Sulfamethoxazole/Trimethoprim (Sulfamethoxazole-Tmp Ds Tablet), 1 TAB PO BID, ( Reported) Scheduled PRN Hydrocodone Bit/Acetaminophen (Hydrocodone-Apap 5-325 ), 1 TAB PO PRN Q6HRS PRN for PAIN Olanzapine (Olanzapine), 2.5 MG PO PRN Q2HRS PRN for PSYCHOSIS, (Reported) Zolpidem Tartrate (Ambien), 5 MG PO PRN QHS PRN for sleep Patient Instructions Patient Instructions > 30 min face to face GLENN HERRERA MD Jun 05, 2017 12:38
== END 2017-05-31 16:37 | DRG 444 ==
LOC: ER 11:16 → 6 SOUTH 13:28
PROVIDERS: ADMIT Internal Medicine; ATTEND Internal Medicine
PROC: 0FC98ZZ Extirpation of Matter from Common Bile Duct, Via Natural or Artificial Opening Endoscopic (ICD-10-PCS; 2017-05-10)
PROC: 0F798DZ Dilation of Common Bile Duct with Intraluminal Device, Via Natural or Artificial Opening Endoscopic (ICD-10-PCS; 2017-05-10)
PROC: 3E0336Z Introduction of Nutritional Substance into Peripheral Vein, Percutaneous Approach (ICD-10-PCS; 2017-05-10)
PROC: BF101ZZ Fluoroscopy of Bile Ducts using Low Osmolar Contrast (ICD-10-PCS; principal; 2017-05-10 17:00)
PROC: 02HV33Z Insertion of Infusion Device into Superior Vena Cava, Percutaneous Approach (ICD-10-PCS; 2017-05-17)
PROC: 0DP08DZ Removal of Intraluminal Device from Upper Intestinal Tract, Via Natural or Artificial Opening Endoscopic (ICD-10-PCS; 2017-05-24)
PROC: 3E0U33Z Introduction of Anti-inflammatory into Joints, Percutaneous Approach (ICD-10-PCS; 2017-05-29)
PROC: 3E0U3BZ Introduction of Anesthetic Agent into Joints, Percutaneous Approach (ICD-10-PCS; 2017-05-29)
DX: K80.31 Calculus of bile duct with cholangitis, unspecified, with obstruction (principal); K85.90 Acute pancreatitis without necrosis or infection, unspecified; J69.0 Pneumonitis due to inhalation of food and vomit; N17.9 Acute kidney failure, unspecified; E44.0 Moderate protein-calorie malnutrition; I13.0 Hypertensive heart and chronic kidney disease with heart failure and stage 1 through stage 4 chronic kidney disease, or unspecified chronic kidney disease; I50.9 Heart failure, unspecified; N18.3 Chronic kidney disease, stage 3 (moderate); J98.11 Atelectasis; K72.90 Hepatic failure, unspecified without coma; Z68.31 Body mass index [BMI] 31.0-31.9, adult; E87.6 Hypokalemia; I25.10 Atherosclerotic heart disease of native coronary artery without angina pectoris; K21.9 Gastro-esophageal reflux disease without esophagitis; K29.70 Gastritis, unspecified, without bleeding; K74.4 Secondary biliary cirrhosis; K76.0 Fatty (change of) liver, not elsewhere classified; M17.0 Bilateral primary osteoarthritis of knee; S83.92XA Sprain of unspecified site of left knee, initial encounter; Y92.238 Other place in hospital as the place of occurrence of the external cause; Y84.8 Other medical procedures as the cause of abnormal reaction of the patient, or of later complication, without mention of misadventure at the time of the procedure; Z96.653 Presence of artificial knee joint, bilateral; Z90.49 Acquired absence of other specified parts of digestive tract; Z82.49 Family history of ischemic heart disease and other diseases of the circulatory system; X50.1XXA Overexertion from prolonged static or awkward postures, initial encounter; Y99.8 Other external cause status; T85.898A Other specified complication of other internal prosthetic devices, implants and grafts, initial encounter
CPT/HCPCS: 36415; 36569; 71010; 71020; 71260; 74177; 74181; 74328; 76705; 80048; 80053; 80076; 81001; 82150; 82248; 83690; 83735; 84100; 84145; 84439; 84443; 84478; 84481; 85007; 85025; 85610; 86644; 86645; 86663; 86664; 87040; 87086; 88305; 93005; 93306; 94250; 94640; 94760; C1713; C1726; C1757; C9113; G0238; J0330; J0610; J1030; J1650; J1885; J1940; J1956; J2270; J2704; J3475; J3480; J7030; J7042; J7120; J7613; J7620; Q0163; Q9967; 97110; 97116; 97530; 97535; 99285-25; J2001

== ENCOUNTER → 2017-06-12 | Outpatient (CLI) | payer MEDICARE, BC ==
[2017-05-31 14:40] VITALS: BP 106/73
[~2017-06-12] MED LIST changes: +CHOL500016 PO; +CITA20TA5 PO; +DIVA500T9 PO; +GABA-585 PO; +LACT1CAP38 PO; +LINA5TAB4 PO; +MIRT15TA3 PO; +MULT-503 PO; +OLAN5TAB9 PO; +OMEP20CA9 PO; +POTA10TA12 PO; +RISP0.5T3 PO; +SENN-79 PO; +SULF-143 PO; +ZOLP5TAB PO
--- NOTE | 2017-06-12 12:46 | RAD ---
MRI Lumbar Spine without contrast History: Difficulty walking, right leg weakness, symptoms for 5 to 6 days Technique: Multiplanar, multi sequential noncontrast MR imaging was performed of the lumbar spine. Contrast: None Comparison: None Findings: Lumbar vertebral body stature is preserved. Conus terminates at L1. There is no significant marrow edema of the vertebral bodies. There is advanced narrowing of the L4-5 intervertebral disc space, likely interbody calcification and partial interbody fusion. There is moderate to severe degenerative disc disease at L5-S1. There is mild degenerative disc disease at L2-3, mild disc desiccation L3-4 and L1-2. There is mild lumbar dextroscoliosis. There is degenerative endplate change L4-5. L1-L2: Neural foramina and spinal canal are adequate. L2-L3: There is minimal facet degenerative change and buckling of the ligamentum flavum. Neural foramina and spinal canal are adequate. L3-L4: There is negligible disc osteophyte complex. There is mild facet degenerative change, buckling of the ligamentum flavum, and prominence of posterior epidural fat. There is minimal narrowing of the far lateral recesses bilaterally. There is mild narrowing of the right neural foramen, left neural foramen adequate. L4-L5: There is minimal facet degenerative change and prominence of posterior epidural fat. There is minimal disc osteophyte complex. There is mild narrowing of the far right lateral recess. Left neural foramen is adequate. There is moderate narrowing of the right neural foramen from disc osteophyte complex and facet hypertrophic change. Disc osteophyte complex is also near the extraforaminal right L4 nerve root without significant displacement. L5-S1: There is minimal disc osteophyte complex more eccentric to the inferior neural foramina. Spinal canal is adequate. Left neural foramen is adequate. There is moderate to severe narrowing of the right neural foramen greater distally with contact of the exiting right L5 nerve root. Right lateral extent of disc osteophyte complex is also near the extraforaminal right L5 nerve root laterally. Impression: 1. There is no significant lumbar spinal stenosis, mild narrowing of the right lateral recess at L4-5 and bilaterally at L3-4. 2. There is moderate to severe narrowing of the right L5-S1 neural foramen with contact exiting right L5 nerve root. There is a lesser degree of moderate narrowing on the right at L4-5 and minimally on the right at L3-4. 3. There is advanced narrowing of the L4-5 intervertebral disc space at which there is apparently interbody fusion. There is moderate to severe degenerative disc disease L5-S1, minimally at other levels. Electronically signed by: Sameer Mason MD (06/12/2017 12:43 PM) [id number]
== END | disposition home or self-care (01) ==
LOC: MRI 10:57
PROVIDERS: ATTEND Internal Medicine
DX: M51.37 Other intervertebral disc degeneration, lumbosacral region (principal); R53.1 Weakness; R26.2 Difficulty in walking, not elsewhere classified
CPT/HCPCS: 72148

== ENCOUNTER → 2017-09-05 | Outpatient (CLI) | payer MEDICARE, BC ==
[2017-09-05 14:30] LABS: ADD MAN DIFF? NO
[2017-09-05 14:44] LABS: BASO % 1 % (0-3); EOS # 0.1 x10^3/uL (0.0-0.7); EOS % 1 % (0-3); HEMATOCRIT 45.8 % (39.0-53.0); HEMOGLOBIN 15.5 g/dL (13.0-17.5); LYMPH # 0.6 x10^3/uL (1.0-4.8); LYMPH % 9 % (24-48); MEAN CORPUSCULAR HEMOGLOBIN 33 pg (25-35); MEAN CORPUSCULAR HGB CONC 34 g/dL (31-37); MEAN CORPUSCULAR VOLUME 96 fL (79-100); MONO % 16 % (0-9); NEUT # 4.7 x10^3uL (1.8-7.7); NEUT % 73 % (31-73); PLATELET COUNT 142 x10^3/uL (140-400); RED BLOOD COUNT 4.78 x10^6/uL (4.30-5.70); RED CELL DISTRIBUTION WIDTH 14.1 % (11.5-14.5); WHITE BLOOD COUNT 6.4 x10^3/uL (4.0-11.0)
[2017-09-05 15:18] LABS: ALBUMIN 3.2 g/dL (3.4-5.0); ALBUMIN/GLOBULIN RATIO 0.7 (1.0-1.7); ALK PHOS 188 U/L (46-116); ALT (SGPT) 48 U/L (16-63); ANION GAP 9 (6-14); AST (SGOT) 61 U/L (15-37); BLOOD UREA NITROGEN 17 mg/dL (8-26); BUN/CREATININE RATIO 13 (6-20); CALCIUM 9.6 mg/dL (8.5-10.1); CARBON DIOXIDE 27 mmol/L (21-32); CHLORIDE 106 mmol/L (98-107); CREATINE KINASE 57 U/L (39-308); CREATININE 1.3 mg/dL (0.7-1.3); GFR 53.8; GLUCOSE 102 mg/dL (70-99); SODIUM 142 mmol/L (136-145); TOTAL BILIRUBIN 1.7 mg/dL (0.2-1.0)
[2017-09-05 15:25] LABS: FREE T4 1.07 ng/dL (0.76-1.46)
[2017-09-05 16:51] LABS: VITAMIN-B12 228 pg/mL (247-911)
== END | disposition home or self-care (01) ==
LOC: LAB 14:13
DX: G57.31 Lesion of lateral popliteal nerve, right lower limb (principal); Z79.899 Other long term (current) drug therapy
CPT/HCPCS: 36415; 80053; 82306; 82550; 82607; 82652; 84439; 84443; 85025

== ENCOUNTER → 2017-12-01 | Day surgery (SDC) | payer MEDICARE, BC ==
[~2017-12-01] MED LIST changes: -AMLO1TAB97 PO; -CHOL500016 PO; -CITA20TA5 PO; +DEXAMETHASONE SOD PHOS 20 MG/5 ML VIAL.; -DIVA500T9 PO; -DOCU-109 PO; +FAMOTIDINE 20 MG/2 ML VIAL; -GABA-585 PO; -HYDR-2758 PO; -IBUP-1007 PO; +IOHEXOL 300 MG/ML 100ML VIAL.; -LACT1CAP PO; -LACT1CAP38 PO; -LEVO500T59 PO; +LIDOCAINE 1% PF 2 ML VIAL. ID; +LIDOCAINE 2% PF Vial for OR 5 ML VIAL.; -LINA5TAB4 PO; -MIRT15TA3 PO; +MORPHINE SULFATE 4 MG/ML DISP.SYRIN. IV; -MULT-503 PO; -OLAN5TAB9 PO; -OMEP20CA9 PO; +ONDANSETRON PF 4 MG/2 ML VIAL.; +ONDANSETRON PF 4 MG/2 ML VIAL. IV; -PANT40TA5 PO; -POTA10TA12 PO; +PROCHLORPERAZINE 10 MG/2 ML VIAL. IV; +PROPOFOL 20 ML IV; -RISP0.5T3 PO; -SENN-79 PO; +SUCCINYLCHOLINE 200 MG/10 ML VIAL.; -SULF-143 PO; -ZOLP5TAB PO; +ePHEDrine PF IN SALINE 50 MG/5 ML DISP.SYRIN IV; +fentaNYL PF VIAL 100 MCG/2 ML VIAL IV
[2017-12-01] MEDS: IV RINGERS,LACTATED 1000ML 1,000 ML IV (10:09)
[2017-12-01] MEDS: IOHEXOL 300 MG/ML 50 ML VIAL. IJ (10:56)
== END | disposition home or self-care (01) ==
LOC: ENDOS 09:15
DX: K80.50 Calculus of bile duct without cholangitis or cholecystitis without obstruction (principal); I10 Essential (primary) hypertension; K21.9 Gastro-esophageal reflux disease without esophagitis; M17.9 Osteoarthritis of knee, unspecified; Z79.899 Other long term (current) drug therapy; Z72.89 Other problems related to lifestyle; Z87.891 Personal history of nicotine dependence; Z90.49 Acquired absence of other specified parts of digestive tract; Z98.52 Vasectomy status; Z98.890 Other specified postprocedural states; Z98.42 Cataract extraction status, left eye; Z98.41 Cataract extraction status, right eye; Z86.19 Personal history of other infectious and parasitic diseases
CPT/HCPCS: 43265; 74328; C1726; C1757; J0330; J1100; J2001; J2405; J2704; Q9967; S0028

== ENCOUNTER → 2017-12-14 | Outpatient (CLI) | payer MEDICARE, BC | END | disposition home or self-care (01) | LOC: MRI 08:42 | DX: R17 Unspecified jaundice (principal); I13.0 Hypertensive heart and chronic kidney disease with heart failure and stage 1 through stage 4 chronic kidney disease, or unspecified chronic kidney disease; I50.9 Heart failure, unspecified; N18.3 Chronic kidney disease, stage 3 (moderate); Z90.49 Acquired absence of other specified parts of digestive tract | CPT/HCPCS: 74181 ==

== ENCOUNTER → 2017-12-15 | Day surgery (SDC) | payer MEDICARE, BC ==
[~2017-12-15] MED LIST changes: +MORPHINE SULFATE 2 MG/ML DISP.SYRIN. IV; -MORPHINE SULFATE 4 MG/ML DISP.SYRIN. IV; -SUCCINYLCHOLINE 200 MG/10 ML VIAL.; -ePHEDrine PF IN SALINE 50 MG/5 ML DISP.SYRIN IV
[2017-12-15] MEDS: IV RINGERS,LACTATED 1000ML 1,000 ML IV (10:34)
[2017-12-15] MEDS: IOHEXOL 300 MG/ML 100ML VIAL. IV (12:30)
== END | disposition home or self-care (01) ==
LOC: ENDOS 09:51
DX: K80.50 Calculus of bile duct without cholangitis or cholecystitis without obstruction (principal); I10 Essential (primary) hypertension; K21.9 Gastro-esophageal reflux disease without esophagitis; Z86.19 Personal history of other infectious and parasitic diseases; Z87.19 Personal history of other diseases of the digestive system; Z83.3 Family history of diabetes mellitus; Z82.49 Family history of ischemic heart disease and other diseases of the circulatory system; Z80.3 Family history of malignant neoplasm of breast; Z87.891 Personal history of nicotine dependence; Z79.899 Other long term (current) drug therapy; Z90.49 Acquired absence of other specified parts of digestive tract; Z98.52 Vasectomy status; Z98.890 Other specified postprocedural states; Z98.42 Cataract extraction status, left eye; Z98.41 Cataract extraction status, right eye; Z96.1 Presence of intraocular lens; M19.90 Unspecified osteoarthritis, unspecified site; M17.0 Bilateral primary osteoarthritis of knee; Z72.89 Other problems related to lifestyle
CPT/HCPCS: 43264; 74328; C1726; C1757; J1100; J2001; J2405; J2704; Q9967; S0028

== ENCOUNTER → 2018-10-12 | Day surgery (SDC) | payer MEDICARE, BC ==
[~2018-10-12] MED LIST changes: +ALBU2.5V8 IH; +AMLO1TAB97 PO; +CHOL10003 PO; +CHOL500016 PO; +CITA20TA6 PO; -DEXAMETHASONE SOD PHOS 20 MG/5 ML VIAL.; +DIVA-53 PO; +DOCU-109 PO; -FAMOTIDINE 20 MG/2 ML VIAL; +FURO-68 PO; +GABA-585 PO; +GLUCAGON,HUMAN RECOMBINANT 1 MG/ML VIAL. IV ONE; +HYDR-2761 PO; +IBUP-1007 PO; -IOHEXOL 300 MG/ML 100ML VIAL.; +IOHEXOL 300 MG/ML 100ML VIAL. IV ONE; +IOHEXOL 300 MG/ML 100ML VIAL. ONE; +IV RINGERS,LACTATED 1000ML 1,000 ML IV SCH; +LACT1CAP PO; +LACT1CAP38 PO; +LACT20SO PO; +LEVO500T59 PO; -LIDOCAINE 1% PF 2 ML VIAL. ID; -LIDOCAINE 2% PF Vial for OR 5 ML VIAL.; +LINA5TAB PO; +MIRT15TA3 PO; -MORPHINE SULFATE 2 MG/ML DISP.SYRIN. IV; +MULT-503 PO; +OLAN5TAB9 PO; +OMEP20CA10 PO; -ONDANSETRON PF 4 MG/2 ML VIAL.; -ONDANSETRON PF 4 MG/2 ML VIAL. IV; +PANT40TA5 PO; +POLY17PO28 PO; +POTA10TA12 PO; +POTA20TA4 PO; -PROCHLORPERAZINE 10 MG/2 ML VIAL. IV; -PROPOFOL 20 ML IV; +RISP0.5T3 PO; +SENN-80 PO; +SULF-143 PO; +URSO300C26 PO; +ZOLP5TAB PO; -fentaNYL PF VIAL 100 MCG/2 ML VIAL IV
--- NOTE | 2018-10-12 12:20 | RAD ---
Examination: ERCP BILIARY DUCT SYSYEM History: ERCP, [place] TIME =3:31 MINUTES, HISTORY OF CBD STONES, BALLOON SWEEP ANABEL WITH REMOVAL OF STONES. Comparison/Correlation: None Findings: Fluoroscopy was utilized for 3 minutes 31 seconds. A total of 9 images were provided. Right upper quadrant surgical clips are present. Contrast is noted within the dilated common bile duct. No suspicious filling defects identified on the final image provided. No cystic duct identified to opacify with contrast. Contrast is partially seen within the intrahepatic biliary tree. Impression: Distended common bile duct. No suspicious filling defects within the common bile duct on the final image provided. Electronically signed by: Howard Banegas MD (10/12/2018 12:18 PM) [facility]
[2018-10-12 12:25] VITALS: BP 101/60
--- NOTE | 2018-10-12 23:47 | HP ---
ADMIT DATE: 10/12/2018 UPDATED HISTORY AND PHYSICAL HISTORY OF PRESENT ILLNESS: A 78-year-old male, whose past medical history is significant for hypertension and recurrent choledocholithiasis despite Actigall therapy, is seen with an abnormal recent CT scan, which revealed recurrent common duct stones. He had some moderate pain with meals, but no jaundice. Despite Actigall therapy, he has had recurrent stone formation and is here today for stone extraction. PAST MEDICAL HISTORY: Common duct stones, hypertension and COPD. ALLERGIES: None. MEDICATIONS: Include albuterol, vitamin D, omeprazole and ursodiol. PAST SURGICAL HISTORY: Status post cholecystectomy, eye surgery and vasectomy. FAMILY AND SOCIAL HISTORY: Former smoker and drinker. REVIEW OF SYSTEMS: Per records. PHYSICAL EXAMINATION: GENERAL: This is a well-nourished, well-developed male, who is alert and cooperative, in no acute distress. VITAL SIGNS: He is afebrile. Temp is 97.8, pulse 71, respiratory rate is 22 and blood pressure is 130/75. HEENT EXAMINATION: Reveals normocephalic and atraumatic head. Pupils and extraocular muscles are not tested. Sclerae are anicteric. NECK: Supple. LUNGS: Clear. CARDIOVASCULAR EXAMINATION: Reveals an S1, S2, without S3, S4 or appreciable murmur. ABDOMEN: Exam reveals a soft abdomen, with multiple surgical incisions. EXTREMITIES: Exam reveals no cyanosis, clubbing or edema. IMPRESSION AND PLAN: Recurrent choledocholithiasis despite Actigall therapy. We will recommend ERCP with stone extraction. Risks and benefits have been discussed with the patient including risk of hemorrhage and perforation as well as pancreatitis. He is willing to proceed. Actigall therapy will be increased from 900 mg of Actigall daily to 1.2 grams daily. I would like to thank Dr. Healy for allowing us to consult and participate in the patient's care. JAZZMINE ARAUZ MD DR: CAIN/elroy JOB#: [id number] / [id number] ecc DELVIS HEALY MD
== END | disposition home or self-care (01) ==
LOC: SURG 09:38
PROVIDERS: ATTEND Internal Medicine Gastroenterology
DX: K80.50 Calculus of bile duct without cholangitis or cholecystitis without obstruction (principal); I10 Essential (primary) hypertension; K21.9 Gastro-esophageal reflux disease without esophagitis; J44.9 Chronic obstructive pulmonary disease, unspecified; Z79.899 Other long term (current) drug therapy; Z90.49 Acquired absence of other specified parts of digestive tract; Z98.52 Vasectomy status; Z87.891 Personal history of nicotine dependence; Z72.89 Other problems related to lifestyle
CPT/HCPCS: 43262; 43264; 74328; C1726; C1757; J1610; Q9967; 43277

== ENCOUNTER 2018-10-30 12:00 | Inpatient (IN) | payer MEDICARE, BC ==
[~2018-10-30] VITALS: Ht 198.1 cm; Wt 119.0 kg
[~2018-10-30 12:00] MED LIST changes: -FURO-68 PO; -LACT20SO PO; -POLY17PO28 PO; -POTA20TA4 PO
[2018-10-30 13:08] LABS: BASO % 1 % (0-3); EOS % 4 % (0-3); HEMATOCRIT 43.7 % (39.0-53.0); HEMOGLOBIN 14.7 g/dL (13.0-17.5); LYMPH % 12 % (24-48); MEAN CORPUSCULAR HEMOGLOBIN 35 pg (25-35); MEAN CORPUSCULAR HGB CONC 34 g/dL (31-37); MEAN CORPUSCULAR VOLUME 104 fL (79-100); MONO % 17 % (0-9); NEUT % 66 % (31-73); PLATELET COUNT 144 x10^3/uL (140-400); RED BLOOD COUNT 4.22 x10^6/uL (4.30-5.70); RED CELL DISTRIBUTION WIDTH 17.7 % (11.5-14.5); WHITE BLOOD COUNT 5.2 x10^3/uL (4.0-11.0)
[2018-10-30 13:09] LABS: BASO # 0.1 x10^3/uL (0.0-0.2); EOS # 0.2 x10^3/uL (0.0-0.7); LYMPH # 0.6 x10^3/uL (1.0-4.8); MONO # 0.9 x10^3/uL (0.0-1.1); NEUT # 3.4 x10^3uL (1.8-7.7)
[2018-10-30 13:37] LABS: ALBUMIN 2.5 g/dL (3.4-5.0); CALCIUM 9.3 mg/dL (8.5-10.1); CREATININE 1.9 mg/dL (0.7-1.3); GFR 34.5; TOTAL PROTEIN 6.5 g/dL (6.4-8.2)
[2018-10-30 13:38] LABS: POTASSIUM 3.1 mmol/L (3.5-5.1)
[2018-10-30 14:00] VITALS: BP 135/87
[2018-10-30] MEDS ORDERED: ACETAMINOPHEN 325 MG TABLET. PO PRN (14:45)
[2018-10-30] MEDS ORDERED: ALBUTEROL SULFATE 2.5 MG/3 ML NEBU. NEB PRN (14:45)
[2018-10-30] MEDS ORDERED: LACTULOSE 20 GM/30 ML SOLUTION. PO PRN (14:45)
[2018-10-30] MEDS ORDERED: PANTOPRAZOLE 40 MG TABLET.DR. PO PRN (14:45)
[2018-10-30] MEDS ORDERED: ONDANSETRON PF 4 MG/2 ML VIAL. IV PRN (14:45)
--- NOTE | 2018-10-30 14:58 | PDOC1 ---
History and Physical Date of Admission Date of Admission DATE: 10/30/18 TIME: 14:43 Identification/Chief Complaint Chief Complaint Lower extremity edema Source Source: Chart review, Patient History of Present Illness History of Present Illness Mr Cho is a 78yo M w/ PMHx HTN, OA, choledocholithiasis, cholecystectomy, chronic recurrent hyperbilirubinemia s/p ERCP (x3) w/ sphincterotomy, bilateral knee surgeries, liver biopsy x 2, expl lap w/ appendectomy who presented to cardiology for echocardiogram today and noted he has gained 12# in the past week and has been more short of breath. He was 243# on his home scale last monday and was 255# on his home scale yesterday morning and notes his shoes don't fit him anymore despite taking oral lasix per cardiology. He had appt with PCP yesterday who suggested he take demadex. In ED noted with K of 3.1, Cr 1.9, bili 4. 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 He is also anxious about vascular studies scheduled for and a GI appointment tomorrow (CT scan?) Past Medical History Cardiovascular: HTN Pulmonary: No pertinent hx GI: No pertinent hx, Other Heme/Onc: No pertinent hx Hepatobiliary: Cholelithiasis, Other Musculoskeletal: Osteoarthritis Renal/: No pertinent hx Past Surgical History Past Surgical History: Appendectomy, Cholecystectomy, Other Family History Family History: Hypertension Social History ALCOHOL: occassional Drugs: None Current Medications Current Medications Active Scripts Active Reported Proventil Hfa Inhaler (Albuterol Sulfate) 6.7 Gm Hfa.aer.ad 2 Puff IH PRN Q4HRS PRN Vitamin D3 (Cholecalciferol (Vitamin D3)) 1,000 Unit Tablet 2,000 Unit PO DAILY Ursodiol 300 Mg Capsule 300 Mg PO Vitamin D3 (Cholecalciferol (Vitamin D3)) 5,000 Unit Tablet 5,000 Unit PO DAILY Omeprazole 20 Mg Capsule.dr 20 Mg PO PRN Allergies Allergies: Coded Allergies: No Known Drug Allergies (Unverified , 10/12/18) ROS General: YES: Fatigue, Malaise; No: Chills, Night Sweats, Appetite, Other PSYCHOLOGICAL ROS: No: Anxiety, Behavioral Disorder, Concentration difficultie, Decreased libido, Depression, Disorientation, Hallucinations, Hostility, Irritablity, Memory difficulties, Mood Swings, Obsessive thoughts, Physical abuse, Sexual abuse, Sleep disturbances, Suicidal ideation, Other Eyes: No Blurry vision, No Decreased vision, No Double vision, No Dry eyes, No Excessive tearing, No Eye Pain, No Itchy Eyes, No Loss of vision, No Photoph obia, No Scotomata, No Uses contacts, No Uses glasses, No Other HEENT: No: Heacaches, Visual Changes, Hearing change, Nasal congestion, Nasal discharge, Oral lesions, Sinus pain, Sore Throat, Epistaxis, Sneezing, Snoring, Tinnitus, Vertigo, Vocal changes, Other ALLERGY AND IMMUNOLOGY: No: Hives, Insect Bite Sensitivity, Itchy/Watery Eyes, Nasal Congestion, Post Nasal Drip, Seasonal Allergies, Other Hematological and Lymphatic: No: Bleeding Problems, Blood Clots, Blood Transfusions, Brusing, Night Sweats, Pallor, Swollen Lymph Nodes, Other ENDOCRINE: No: Breast Changes, Galactorrhea, Hair Pattern Changes, Hot Flashes, Malaise/lethargy, Mood Swings, Palpitations, Polydipsia/polyuria, Skin Changes, Temperature Intolerance, Unexpected Weight Changes, Other Breast: No New/Changing Breast Lumps, No Nipple changes, No Nipple discharge, No Other Respiratory: YES: Orthopnea, Shortness of breath, SOB with excertion Cardiovascular: yes Orthopnea, yes Paroxysmal Noc. Dyspnea, yes Edema Gastrointestinal: No Nausea, No Vomiting, No Abdominal Pain, No Diarrhea, No Constipation, No Melena, No Hematochezia, No Other Genitourinary: No Dysuria, No Frequency, No Incontinence, No Hematuria, No Retention, No Discharge, No Urgency, No Pain, No Flank Pain, No Other, No , No , No , No , No , No , No Musculoskeletal: No Gait Disturbance, No Joint Pain, No Joint Stiffness, No Joint Swelling, No Muscle Pain, No Muscular Weakness, No Pain In:, No Swelling In:, No Other Neurological: No Behavorial Changes, No Bowel/Bladder ControlChng, No Confusion, No Dizziness, No Gait Disturbance, No Headaches, No Impaired Coord/balance, No Memory Loss, No Numbness/Tingling, No Seizures, No Speech Problems, No Tremors, No Visual Changes, No Weakness, No Other Skin: No Dry Skin, No Eczema, No Hair Changes, No Lumps, No Mole Changes, No Mottling, No Nail Changes, No Pruritus, No Rash, No Skin Lesion Changes, No Other, No Acne Physical Exam General: Alert, Oriented X3, Cooperative, No acute distress HEENT: Atraumatic, PERRLA, EOMI, Mucous membr. moist/pink Lungs: Other (Right basilar wheezes) Heart: S1S2, RRR, no gallops, no murmurs Abdomen: Normal bowel sounds, Soft, No tenderness, No hepatosplenomegaly, No masses Extremities: No clubbing, No cyanosis, Normal pulses, No tenderness/swelling, Other (3+ Edema) Skin: No rashes, No breakdown, No significant lesion Neuro: Normal gait, Normal speech, Strength at 5/5 X4 ext, Normal tone, Sensation intact, Cranial nerves 3-12 NL, Reflexes 2+ Psych/Mental Status: Mental status NL, Mood NL Vitals Vitals Vital Signs Date Time Temp Pulse Resp B/P (MAP) Pulse Ox O2 Delivery O2 Flow Rate FiO2 10/30/18 14:00 97.5 111 16 135/87 (103) 94 Nasal Cannula 2.0 97.5 Labs Labs Laboratory Tests Test 10/30/18 11:30 White Blood Count 5.2 x10^3/uL (4.0-11.0) Red Blood Count 4.22 x10^6/uL (4.30-5.70) Hemoglobin 14.7 g/dL (13.0-17.5) Hematocrit 43.7 % (39.0-53.0) Mean Corpuscular Volume 104 fL (79-100) Mean Corpuscular Hemoglobin 35 pg (25-35) Mean Corpuscular Hemoglobin Concent 34 g/dL (31-37) Red Cell Distribution Width 17.7 % (11.5-14.5) Platelet Count 144 x10^3/uL (140-400) Neutrophils (%) (Auto) 66 % (31-73) Lymphocytes (%) (Auto) 12 % (24-48) Monocytes (%) (Auto) 17 % (0-9) Eosinophils (%) (Auto) 4 % (0-3) Basophils (%) (Auto) 1 % (0-3) Neutrophils # (Auto) 3.4 x10^3uL (1.8-7.7) Lymphocytes # (Auto) 0.6 x10^3/uL (1.0-4.8) Monocytes # (Auto) 0.9 x10^3/uL (0.0-1.1) Eosinophils # (Auto) 0.2 x10^3/uL (0.0-0.7) Basophils # (Auto) 0.1 x10^3/uL (0.0-0.2) Prothrombin Time 14.0 SEC (11.7-14.0) Prothromb Time International Ratio 1.1 (0.8-1.1) Activated Partial Thromboplast Time 34 SEC (24-38) Sodium Level 144 mmol/L (136-145) Potassium Level 3.1 mmol/L (3.5-5.1) Chloride Level 106 mmol/L (98-107) Carbon Dioxide Level 26 mmol/L (21-32) Anion Gap 12 (6-14) Blood Urea Nitrogen 24 mg/dL (8-26) Creatinine 1.9 mg/dL (0.7-1.3) Estimated GFR (Cockcroft-Gault) 34.5 Glucose Level 130 mg/dL (70-99) Calcium Level 9.3 mg/dL (8.5-10.1) Total Bilirubin 4.0 mg/dL (0.2-1.0) Direct Bilirubin 3.0 mg/dL (0.0-0.2) Aspartate Amino Transf (AST/SGOT) 94 U/L (15-37) Alanine Aminotransferase (ALT/SGPT) 62 U/L (16-63) Alkaline Phosphatase 217 U/L (46-116) Troponin I Quantitative 0.019 ng/mL (0.000-0.055) UL-Ivq-N-Type Natriuretic Peptide 738 pg/mL (0-449) Total Protein 6.5 g/dL (6.4-8.2) Albumin 2.5 g/dL (3.4-5.0) Laboratory Tests Test 10/30/18 11:30 White Blood Count 5.2 x10^3/uL (4.0-11.0) Red Blood Count 4.22 x10^6/uL (4.30-5.70) Hemoglobin 14.7 g/dL (13.0-17.5) Hematocrit 43.7 % (39.0-53.0) Mean Corpuscular Volume 104 fL (79-100) Mean Corpuscular Hemoglobin 35 pg (25-35) Mean Corpuscular Hemoglobin Concent 34 g/dL (31-37) Red Cell Distribution Width 17.7 % (11.5-14.5) Platelet Count 144 x10^3/uL (140-400) Neutrophils (%) (Auto) 66 % (31-73) Lymphocytes (%) (Auto) 12 % (24-48) Monocytes (%) (Auto) 17 % (0-9) Eosinophils (%) (Auto) 4 % (0-3) Basophils (%) (Auto) 1 % (0-3) Neutrophils # (Auto) 3.4 x10^3uL (1.8-7.7) Lymphocytes # (Auto) 0.6 x10^3/uL (1.0-4.8) Monocytes # (Auto) 0.9 x10^3/uL (0.0-1.1) Eosinophils # (Auto) 0.2 x10^3/uL (0.0-0.7) Basophils # (Auto) 0.1 x10^3/uL (0.0-0.2) Prothrombin Time 14.0 SEC (11.7-14.0) Prothromb Time International Ratio 1.1 (0.8-1.1) Activated Partial Thromboplast Time 34 SEC (24-38) Sodium Level 144 mmol/L (136-145) Potassium Level 3.1 mmol/L (3.5-5.1) Chloride Level 106 mmol/L (98-107) Carbon Dioxide Level 26 mmol/L (21-32) Anion Gap 12 (6-14) Blood Urea Nitrogen 24 mg/dL (8-26) Creatinine 1.9 mg/dL (0.7-1.3) Estimated GFR (Cockcroft-Gault) 34.5 Glucose Level 130 mg/dL (70-99) Calcium Level 9.3 mg/dL (8.5-10.1) Total Bilirubin 4.0 mg/dL (0.2-1.0) Direct Bilirubin 3.0 mg/dL (0.0-0.2) Aspartate Amino Transf (AST/SGOT) 94 U/L (15-37) Alanine Aminotransferase (ALT/SGPT) 62 U/L (16-63) Alkaline Phosphatase 217 U/L (46-116) Troponin I Quantitative 0.019 ng/mL (0.000-0.055) MT-Fuo-Y-Type Natriuretic Peptide 738 pg/mL (0-449) Total Protein 6.5 g/dL (6.4-8.2) Albumin 2.5 g/dL (3.4-5.0) Images Images ECHO - The left ventricular systolic function is normal. The Ejection Fraction is 60-65%. There is normal LV segmental wall motion. Transmitral Doppler flow pattern is Grade I-abnormal relaxation pattern. No significant valvular abnormalities. There is no evidence of significant pericardial effusion. CXR - Comparison is made to a study from 05/17/2017. The heart size and pulmonary vascularity are normal. There appears to be minimal atelectasis/infiltrate in the right base. The left lung is clear. No pleural fluid is seen. VTE Prophylaxis Ordered VTE Prophylaxis Devices: Yes VTE Pharmacological Prophylaxi: Yes Assessment/Plan Assessment/Plan A/P: LE edema - with 12# weight gain, WONG, and orthopnea this is an acute diastolic CHF exacerbation. Lasix 40mg IV TID. Consult cardiology IBAN - likely vasomotor vs cardiorenal syndrome. Will diurese based on his LE edema. If cr increases over the next 24 hours will need to consult nephrology Hypokalemia - will replace with his diuresis and check mag level HTN - cont home meds, hold off on ELIAZAR or ARB at this time with Cr elevation OA - tylenol for pain Transaminitis - possibly residual from recent ERCP, will consult GI H/o choledocholithiasis - s/p cholecystectomy, chronic recurrent hyperbilirubinemia s/p ERCP (x3) w/ sphincterotomy - was to have CT abdomen tomorrow, will consult GI with his bilirubin up to 4 now Moderate protein calorie malnutrition - he appears cachectic despite his weight gain FEN - Cardiac diet PPX - Heparin TID FULL CODE Inpatient CVC for acute diastolic CHF, likely 2 midnight admission OKSANA NOLASCO MD Oct 30, 2018 14:58
[2018-10-30 15:00] VITALS: BP 99/57
[2018-10-30] MEDS: POLYETHYLENE GLYCOL 3350 17 GM PACKET. PO SCH (15:00)
--- NOTE | 2018-10-30 15:15 | RAD ---
Portable chest, 10/30/2018: HISTORY: Congestive heart failure Comparison is made to a study from 05/17/2017. The heart size and pulmonary vascularity are normal. There appears to be minimal atelectasis/infiltrate in the right base. The left lung is clear. No pleural fluid is seen. IMPRESSION: Minimal right basilar atelectasis/infiltrate. Electronically signed by: Ismael Soni MD (10/30/2018 3:12 PM) [facility]
--- NOTE | 2018-10-30 15:33 | PDOC2 ---
GI CONSULT Reason For Consult: Elevated bilirubin HPI: HPI: 78 y/o male well-know to Dr. Arias. Reports about of BLE swelling, abd distention, 15 pound weight gain, and possibly some increased SOA (also has long h/o productive cough). Was restarted on Lasix without improvement. Saw cardiology yesterday and had outpt testing (echo) scheduled for today - admission advised after this. For recurrent sepsis and hyperbilirubinemia, had colonoscopy in 2017 w/ diverticulosis, then expl lap w/ Dr. Huggins w/ appendectomy and liver biopsy (path: portal and periportal fibrosis, chronic bile flow impairment, onion- skinning). Prior to that had ERCP x 2 w/ sphincterotomy. S/p cholecystectomy. Extended hospital stay in 05/2017 for cholangitis - had ERCP w/ dilation of CBD stricture, stone extraction, and stent placement/replacement. Started on Ursodiol at that time and has continued - says does was increased recently. Also, had another ERCP earlier this month for recurrent choledocholithiasis - prior sphincterotomy was open, major papilla flat/normal, choledocholithiasis re moved w/ balloon extraction, biliary tree swept. GI-romo, he scheduled a follow-up appt w/ Dr. Arias next week re: early sati ety and occasional nausea ongoing for awhile. Says he was supposed to have an "upper GI to see if my stomach emptied" tomorrow at [place]. H/o GERD on omeprazole. No dysphagia. Vomited once but this was related to coughing. No abd pain. No diarrhea, constipation, or bleeding. Hepatic steatosis on past imaging, additional h/o pancreatitis (?former drinker). PMH: PMH: HTN, OA, choledocholithiasis, cholecystectomy, ERCP (x2) w/ sphincterotomy, bilateral knee surgeries, liver biopsy x 2, expl lap w/ appendectomy FH: Family History: No pertinent hx Social History: Smoke: Quit ALCOHOL: occassional Drugs: None ROS: GEN: Denies fevers, chills, sweats HEENT: Denies blurred vision, sore throat CV: Denies chest pain RESP: +SOA +cough GI: Per HPI : Denies hematuria, dysuria ENDO: +weight gain NEURO: Denies confusion, dizziness MSK: +swelling SKIN: Denies jaundice, pruritus Vitals: Vitals: Vital Signs Date Time Temp Pulse Resp B/P (MAP) Pulse Ox O2 Delivery O2 Flow Rate FiO2 10/30/18 14:00 97.5 111 16 135/87 (103) 94 Nasal Cannula 2.0 97.5 Labs: Labs: Laboratory Tests Test 10/30/18 11:30 White Blood Count 5.2 x10^3/uL (4.0-11.0) Red Blood Count 4.22 x10^6/uL (4.30-5.70) Hemoglobin 14.7 g/dL (13.0-17.5) Hematocrit 43.7 % (39.0-53.0) Mean Corpuscular Volume 104 fL (79-100) Mean Corpuscular Hemoglobin 35 pg (25-35) Mean Corpuscular Hemoglobin Concent 34 g/dL (31-37) Red Cell Distribution Width 17.7 % (11.5-14.5) Platelet Count 144 x10^3/uL (140-400) Neutrophils (%) (Auto) 66 % (31-73) Lymphocytes (%) (Auto) 12 % (24-48) Monocytes (%) (Auto) 17 % (0-9) Eosinophils (%) (Auto) 4 % (0-3) Basophils (%) (Auto) 1 % (0-3) Neutrophils # (Auto) 3.4 x10^3uL (1.8-7.7) Lymphocytes # (Auto) 0.6 x10^3/uL (1.0-4.8) Monocytes # (Auto) 0.9 x10^3/uL (0.0-1.1) Eosinophils # (Auto) 0.2 x10^3/uL (0.0-0.7) Basophils # (Auto) 0.1 x10^3/uL (0.0-0.2) Prothrombin Time 14.0 SEC (11.7-14.0) Prothromb Time International Ratio 1.1 (0.8-1.1) Activated Partial Thromboplast Time 34 SEC (24-38) Sodium Level 144 mmol/L (136-145) Potassium Level 3.1 mmol/L (3.5-5.1) Chloride Level 106 mmol/L (98-107) Carbon Dioxide Level 26 mmol/L (21-32) Anion Gap 12 (6-14) Blood Urea Nitrogen 24 mg/dL (8-26) Creatinine 1.9 mg/dL (0.7-1.3) Estimated GFR (Cockcroft-Gault) 34.5 Glucose Level 130 mg/dL (70-99) Calcium Level 9.3 mg/dL (8.5-10.1) Total Bilirubin 4.0 mg/dL (0.2-1.0) Direct Bilirubin 3.0 mg/dL (0.0-0.2) Aspartate Amino Transf (AST/SGOT) 94 U/L (15-37) Alanine Aminotransferase (ALT/SGPT) 62 U/L (16-63) Alkaline Phosphatase 217 U/L (46-116) Troponin I Quantitative 0.019 ng/mL (0.000-0.055) QE-Ioz-S-Type Natriuretic Peptide 738 pg/mL (0-449) Total Protein 6.5 g/dL (6.4-8.2) Albumin 2.5 g/dL (3.4-5.0) Allergies: Coded Allergies: No Known Drug Allergies (Unverified , 10/12/18) Imaging: Imaging: Echo 10/30 <Conclusion> The left ventricular systolic function is normal. The Ejection Fraction is 60-65%. There is normal LV segmental wall motion. Transmitral Doppler flow pattern is Grade I-abnormal relaxation pattern. No significant valvular abnormalities. There is no evidence of significant pericardial effusion. CXR 10/30 IMPRESSION: Minimal right basilar atelectasis/infiltrate. PE: GEN: NAD - up to chair HEENT: Atraumatic, PERRL LUNGS: NC, diminished HEART: tachycardic ABD: NABS, distended, non-tender EXTREMITY: BLE pitting edema SKIN: +jaundice NEURO/PSYCH: A & O 3 A/P: A/P: BLE edema, chronic SOA and cough, weight gain - CHF exacerbation suspected Early satiety, intermittent nausea Hyperbilirubinemia - 4 (compared to 1.7 in August), IBAN/CKD, hypokalemia, macrocytosis Recurrent choledocholithiasis - on Ursodiol, s/p ERCPs w/ sphincterotomy, dilation of CBD stricture, and stone extraction - last ~2 weeks ago GERD - on PPI CRC screen - UTD (2016) Diverticulosis Hepatomegaly, hepatic steatosis S/p cholecystectomy -- Monitor bili - ?related to heart failure, ?another stone Can check US r/o ascites. GUILLERMINA JAUREGUI Oct 30, 2018 15:33
[2018-10-30] MEDS ORDERED: POTASSIUM CHLORIDE 20 MEQ TABLET.ER. PO SCH (17:00)
[2018-10-30] MEDS: POTASSIUM CHLORIDE 20 MEQ TABLET.ER. PO SCH (17:00)
[2018-10-30] MEDS: URSODIOL 300 MG CAPSULE. PO SCH (17:59)
[2018-10-30] MEDS: CHOLECALCIFEROL (VITAMIN D3) 1,000 UNIT TABLET PO SCH (17:59)
[2018-10-30] MEDS: FUROSEMIDE 40 MG/4 ML VIAL. IVP SCH (18:00)
[2018-10-30] MEDS: POTASSIUM CHLORIDE 10MEQ 100 ML IV SCH ×2 (18:07→20:05)
[2018-10-30] MEDS: HEPARIN for SUB-Q USE 5,000 UNIT/ML VIAL. SQ SCH ×2 (18:12→20:33)
[2018-10-30 19:20] VITALS: BP 104/52
--- NOTE | 2018-10-30 19:42 | NUR ---
Patient was admitted to room 262 around 1400. Patient was A&Ox4 complaining of no pain. States "I don't really want to be here." Patient is resting comfortably watching TV in the recliner. Patient was admitted during downtime so all admission charting and head to toe charting are completed on paper forms and in the chart.
[2018-10-30] MEDS: SENNOSIDES/DOCUSATE 8.6/50MG TABLET. PO SCH (20:24)
[2018-10-30 23:25] VITALS: BP 97/62
[2018-10-31] VITALS (7 sets, daily range): BP systolic 91–131; BP diastolic 55–111
--- NOTE | 2018-10-31 03:00 | RAD ---
Indication: Elevated bilirubin. Evaluate for ascites. Technique: Limited ultrasound of the abdomen COMPARISON: None FINDINGS: Cirrhotic morphology of liver. Large amount of ascites is seen. IMPRESSION: As above. Electronically signed by: Fredo Harkins DO (10/31/2018 2:57 AM) [facility]
[2018-10-31] MEDS: HEPARIN for SUB-Q USE 5,000 UNIT/ML VIAL. SQ SCH ×3 (06:28→21:47)
[2018-10-31] MEDS: POTASSIUM CHLORIDE 20 MEQ TABLET.ER. PO SCH ×2 (08:17→17:23)
[2018-10-31] MEDS: FUROSEMIDE 40 MG/4 ML VIAL. IVP SCH ×3 (08:17→17:23)
[2018-10-31] MEDS: URSODIOL 300 MG CAPSULE. PO SCH (08:17)
[2018-10-31] MEDS: CHOLECALCIFEROL (VITAMIN D3) 1,000 UNIT TABLET PO SCH (08:18)
[2018-10-31] MEDS: POLYETHYLENE GLYCOL 3350 17 GM PACKET. PO SCH (08:19)
[2018-10-31] MEDS: SENNOSIDES/DOCUSATE 8.6/50MG TABLET. PO SCH ×2 (08:19→21:43)
[2018-10-31 08:22] LABS: BASO % 1 % (0-3); EOS # 0.3 x10^3/uL (0.0-0.7); EOS % 7 % (0-3); HEMATOCRIT 40.6 % (39.0-53.0); HEMOGLOBIN 13.8 g/dL (13.0-17.5); LYMPH # 0.5 x10^3/uL (1.0-4.8); LYMPH % 12 % (24-48); MEAN CORPUSCULAR HEMOGLOBIN 35 pg (25-35); MEAN CORPUSCULAR HGB CONC 34 g/dL (31-37); MEAN CORPUSCULAR VOLUME 103 fL (79-100); MONO # 0.8 x10^3/uL (0.0-1.1); MONO % 18 % (0-9); NEUT # 2.8 x10^3uL (1.8-7.7); NEUT % 63 % (31-73); PLATELET COUNT 124 x10^3/uL (140-400); RED BLOOD COUNT 3.94 x10^6/uL (4.30-5.70); RED CELL DISTRIBUTION WIDTH 17.6 % (11.5-14.5); WHITE BLOOD COUNT 4.4 x10^3/uL (4.0-11.0)
[2018-10-31 08:39] LABS: ALBUMIN 2.1 g/dL (3.4-5.0); ALBUMIN/GLOBULIN RATIO 0.6 (1.0-1.7); CALCIUM 8.8 mg/dL (8.5-10.1); CREATININE 1.6 mg/dL (0.7-1.3); GFR 42.1; POTASSIUM 3.4 mmol/L (3.5-5.1); TOTAL BILIRUBIN 3.8 mg/dL (0.2-1.0); TOTAL PROTEIN 5.7 g/dL (6.4-8.2)
--- NOTE | 2018-10-31 09:26 | PDOC2 ---
CARDIAC CONSULT DATE OF CONSULT Date of Consult DATE: 10/31/18 TIME: 09:11 REASON FOR CONSULT Reason for Consult: CHF REFERRING PHYSICIAN Referring Physician: Dr. Isaacs SOURCE Source: Chart review, Patient HISTORY OF PRESENT ILLNESS HISTORY OF PRESENT ILLNESS This is a 78 yo male who presented secondary to significant LE edema. Patient reports progressive fluid retention in his abdomen and LE and 15 lb weight gain over the last week. Ws seen in our office Monday and was scheduled for echocardiogram the following day. Due to significant LE and abdominal edema, patient was referred to ED for further evaluation and treatment. Patient reports chronic dyspnea, no worse than usual recently. Denies any chest pain, palpitations, dizziness, diaphoresis, orthopnea, or PND. No recent fevers. Echo notable for preserved LV systolic function. Abdominal US notable for ascites and cirrhotic morphology of liver. Additional history of hyperbilirubinemia, choledocholithiasis, cholecystectomy, cholangitis- s/p ERCP (x3) w/ sphincterotomy. PAST MEDICAL HISTORY Cardiovascular: HTN GI: Diverticulosis, GERD Heme/Onc: Other (pancreatitis ) Hepatobiliary: Cholelithiasis Musculoskeletal: Osteoarthritis PAST SURGICAL HISTORY Past Surgical History: Appendectomy, Cholecystectomy, Other (vasectomy, ERCP (x3) w/ sphincterotomy, bilateral knee surgeries, liver biopsy x 2) FAMILY HISTORY Family History: Hypertension SOCIAL HISTORY Smoke: Quit (1982) ALCOHOL: occassional Lives: with Family CURRENT MEDICATIONS CURRENT MEDICATIONS Current Medications Medications (Trade) Dose Ordered Sig/Hector Route PRN Reason Start Time Stop Time Status Last Admin Dose Admin Vitamin D (Vitamin D3) 2,000 unit DAILY PO 10/30/18 15:00 10/31/18 08:18 Ursodiol (Actigall) 300 mg DAILY PO 10/30/18 15:00 10/31/18 08:17 Heparin Sodium (Porcine) (Heparin Sodium) 5,000 unit Q8HRS SQ 10/30/18 15:00 10/31/18 06:28 Furosemide (Lasix) 40 mg TIDAC IVP 10/30/18 16:30 10/31/18 08:17 Potassium Chloride/Water 100 ml @ 100 mls/hr Q1H IV 10/30/18 15:00 10/30/18 16:59 DC 10/30/18 20:05 Potassium Chloride (Klor-Con) 20 meq BIDWMEALS PO 10/30/18 17:00 10/31/18 08:17 ALLERGIES ALLERGIES: Coded Allergies: No Known Drug Allergies (Unverified , 10/12/18) ROS Review of System 14 point ROS conducted with pertinent positives noted above in HPI. PHYSICAL EXAM General: Alert, Oriented X3, Cooperative, No acute distress HEENT: Atraumatic Lungs: Clear to auscultation Heart: Regular rate, Normal S1, Normal S2, No murmurs Abdomen: Other (ascites ) Extremities: Other (Significant bilateral LE edema ) Skin: No significant lesion Neuro: Normal speech, Strength at 5/5 X4 ext, Sensation intact Psych/Mental Status: Mood NL MUSCULOSKELETAL: Osteoarthritic changes both hands VITALS VITALS Vital Signs Date Time Temp Pulse Resp B/P (MAP) Pulse Ox O2 Delivery O2 Flow Rate FiO2 10/31/18 07:00 97.5 72 17 98/57 (71) 90 Room Air 97.5 10/30/18 14:00 2.0 LABS Lab: Laboratory Tests Test 10/30/18 11:30 10/31/18 08:05 10/31/18 08:06 White Blood Count 5.2 x10^3/uL (4.0-11.0) 4.4 x10^3/uL (4.0-11.0) Red Blood Count 4.22 x10^6/uL (4.30-5.70) 3.94 x10^6/uL (4.30-5.70) Hemoglobin 14.7 g/dL (13.0-17.5) 13.8 g/dL (13.0-17.5) Hematocrit 43.7 % (39.0-53.0) 40.6 % (39.0-53.0) Mean Corpuscular Volume 104 fL (79-100) 103 fL (79-100) Mean Corpuscular Hemoglobin 35 pg (25-35) 35 pg (25-35) Mean Corpuscular Hemoglobin Concent 34 g/dL (31-37) 34 g/dL (31-37) Red Cell Distribution Width 17.7 % (11.5-14.5) 17.6 % (11.5-14.5) Platelet Count 144 x10^3/uL (140-400) 124 x10^3/uL (140-400) Neutrophils (%) (Auto) 66 % (31-73) 63 % (31-73) Lymphocytes (%) (Auto) 12 % (24-48) 12 % (24-48) Monocytes (%) (Auto) 17 % (0-9) 18 % (0-9) Eosinophils (%) (Auto) 4 % (0-3) 7 % (0-3) Basophils (%) (Auto) 1 % (0-3) 1 % (0-3) Neutrophils # (Auto) 3.4 x10^3uL (1.8-7.7) 2.8 x10^3uL (1.8-7.7) Lymphocytes # (Auto) 0.6 x10^3/uL (1.0-4.8) 0.5 x10^3/uL (1.0-4.8) Monocytes # (Auto) 0.9 x10^3/uL (0.0-1.1) 0.8 x10^3/uL (0.0-1.1) Eosinophils # (Auto) 0.2 x10^3/uL (0.0-0.7) 0.3 x10^3/uL (0.0-0.7) Basophils # (Auto) 0.1 x10^3/uL (0.0-0.2) 0.0 x10^3/uL (0.0-0.2) Prothrombin Time 14.0 SEC (11.7-14.0) Prothromb Time International Ratio 1.1 (0.8-1.1) Activated Partial Thromboplast Time 34 SEC (24-38) Sodium Level 144 mmol/L (136-145) 146 mmol/L (136-145) Potassium Level 3.1 mmol/L (3.5-5.1) 3.4 mmol/L (3.5-5.1) Chloride Level 106 mmol/L (98-107) 109 mmol/L (98-107) Carbon Dioxide Level 26 mmol/L (21-32) 28 mmol/L (21-32) Anion Gap 12 (6-14) 9 (6-14) Blood Urea Nitrogen 24 mg/dL (8-26) 23 mg/dL (8-26) Creatinine 1.9 mg/dL (0.7-1.3) 1.6 mg/dL (0.7-1.3) Estimated GFR (Cockcroft-Gault) 34.5 42.1 Glucose Level 130 mg/dL (70-99) 93 mg/dL (70-99) Calcium Level 9.3 mg/dL (8.5-10.1) 8.8 mg/dL (8.5-10.1) Magnesium Level 2.1 mg/dL (1.8-2.4) Total Bilirubin 4.0 mg/dL (0.2-1.0) 3.8 mg/dL (0.2-1.0) Direct Bilirubin 3.0 mg/dL (0.0-0.2) Aspartate Amino Transf (AST/SGOT) 94 U/L (15-37) 80 U/L (15-37) Alanine Aminotransferase (ALT/SGPT) 62 U/L (16-63) 48 U/L (16-63) Alkaline Phosphatase 217 U/L (46-116) 173 U/L (46-116) Troponin I Quantitative 0.019 ng/mL (0.000-0.055) NE-Hek-A-Type Natriuretic Peptide 738 pg/mL (0-449) Total Protein 6.5 g/dL (6.4-8.2) 5.7 g/dL (6.4-8.2) Albumin 2.5 g/dL (3.4-5.0) 2.1 g/dL (3.4-5.0) Thyroid Stimulating Hormone (TSH) 4.310 uIU/mL (0.358-3.74) BUN/Creatinine Ratio 14 (6-20) Albumin/Globulin Ratio 0.6 (1.0-1.7) ECHOCARDIOGRAM ECHOCARDIOGRAM <Conclusion> The left ventricular systolic function is normal. The Ejection Fraction is 60-65%. There is normal LV segmental wall motion. Transmitral Doppler flow pattern is Grade I-abnormal relaxation pattern. No significant valvular abnormalities. There is no evidence of significant pericardial effusion. DATE: 10/30/18 1108 ASSESSMENT/PLAN ASSESSMENT/PLAN 1. Hypertension; BP low-normotensive 2. Significant LE edema. Echo revealed preserved LV systolic function. NT Pro BNP mildly elevated, but insignificant based upon age adjustment. 3. IBAN on CKD 4. Hypokalemia; replaced. Mg WNL 5. Hyperbilirubinemia, recurrent 6. Cirrhosis, h/o recurrent choledocholithiasis 7. Hypothyroidism Recommendations Venous reflux studies for further evaluation of significant LE edema Ongoing diuresis as BP allows with monitoring of renal function Follow GI recommendations Supportive care KARIME ELISE APRN October 31, 2018 09:26
--- NOTE | 2018-10-31 10:23 | PDOC ---
Subjective: Subjective: No h/o ascites or paracentesis. Ongoing swelling. Objective: Objective: Has IV Lasix TID and PRN Protonix. Vital Signs: Vital Signs Date Time Temp Pulse Resp B/P (MAP) Pulse Ox O2 Delivery O2 Flow Rate FiO2 10/31/18 08:30 Room Air 10/31/18 07:00 97.5 72 17 98/57 (71) 90 97.5 10/30/18 14:00 2.0 Labs: Laboratory Tests Test 10/30/18 11:30 10/31/18 08:05 10/31/18 08:06 White Blood Count 5.2 x10^3/uL 4.4 x10^3/uL Red Blood Count 4.22 x10^6/uL 3.94 x10^6/uL Hemoglobin 14.7 g/dL 13.8 g/dL Hematocrit 43.7 % 40.6 % Mean Corpuscular Volume 104 fL 103 fL Mean Corpuscular Hemoglobin 35 pg 35 pg Mean Corpuscular Hemoglobin Concent 34 g/dL 34 g/dL Red Cell Distribution Width 17.7 % 17.6 % Platelet Count 144 x10^3/uL 124 x10^3/uL Neutrophils (%) (Auto) 66 % 63 % Lymphocytes (%) (Auto) 12 % 12 % Monocytes (%) (Auto) 17 % 18 % Eosinophils (%) (Auto) 4 % 7 % Basophils (%) (Auto) 1 % 1 % Neutrophils # (Auto) 3.4 x10^3uL 2.8 x10^3uL Lymphocytes # (Auto) 0.6 x10^3/uL 0.5 x10^3/uL Monocytes # (Auto) 0.9 x10^3/uL 0.8 x10^3/uL Eosinophils # (Auto) 0.2 x10^3/uL 0.3 x10^3/uL Basophils # (Auto) 0.1 x10^3/uL 0.0 x10^3/uL Prothrombin Time 14.0 SEC Prothromb Time International Ratio 1.1 Activated Partial Thromboplast Time 34 SEC Sodium Level 144 mmol/L 146 mmol/L Potassium Level 3.1 mmol/L 3.4 mmol/L Chloride Level 106 mmol/L 109 mmol/L Carbon Dioxide Level 26 mmol/L 28 mmol/L Anion Gap 12 9 Blood Urea Nitrogen 24 mg/dL 23 mg/dL Creatinine 1.9 mg/dL 1.6 mg/dL Estimated GFR (Cockcroft-Gault) 34.5 42.1 Glucose Level 130 mg/dL 93 mg/dL Calcium Level 9.3 mg/dL 8.8 mg/dL Magnesium Level 2.1 mg/dL Total Bilirubin 4.0 mg/dL 3.8 mg/dL Direct Bilirubin 3.0 mg/dL Aspartate Amino Transf (AST/SGOT) 94 U/L 80 U/L Alanine Aminotransferase (ALT/SGPT) 62 U/L 48 U/L Alkaline Phosphatase 217 U/L 173 U/L Troponin I Quantitative 0.019 ng/mL WC-Hwd-P-Type Natriuretic Peptide 738 pg/mL Total Protein 6.5 g/dL 5.7 g/dL Albumin 2.5 g/dL 2.1 g/dL Thyroid Stimulating Hormone (TSH) 4.310 uIU/mL Platelet Estimate Pending BUN/Creatinine Ratio 14 Albumin/Globulin Ratio 0.6 Imaging: Abd US 10/30 FINDINGS: Cirrhotic morphology of liver. Large amount of ascites is seen. IMPRESSION: As above. PE: GEN: NAD - up to chair LUNGS: CTAB ABD: distended/ascites EXTREMITY: BLE edema NEURO/PSYCH: A & O 3 A/P: BLE edema, ascites Cirrhosis, h/o recurrent choledocholithiasis, hyperbilirubinemia, macrocytosis, IBAN -- Pt was seen w/ Dr. Arias this morning - bili remains elevated, will check MRCP. Continue diuresis, consider paracentesis. Ideally would take daily PPI for GERD. GUILLERMINA JAUREGUI October 31, 2018 10:23
[2018-10-31 10:45] LABS: CHOLESTEROL/HDL RATIO 6.4
[2018-10-31 10:57] LABS: % BANDS 2 % (0-9); % EOS 7 % (0-5); % LYMPHS 10 % (24-48); % MONOS 13 % (0-10); % SEGS 68 % (35-66); PLT ESTIMATE ADEQUATE (ADEQUATE)
--- NOTE | 2018-10-31 11:03 | PDOC2 ---
CONSULT Date of Consult Date of Consult DATE: 10/31/18 TIME: 11:00 Reason for Consult Reason for Consult: Elevated Creat Source Source: Chart review, Patient History of Present Illness Reason for Visit: Mr Cho is a 78yo CM w/ PMHx HTN, choledocholithiasis, cholecystectomy, chronic recurrent hyperbilirubinemia s/p ERCP (x3) w/ sphincterotomy, liver biopsy x 2, expl lap w/ appendectomy who presented to cardiology for echocardiogram and was noted that he has he has gained 12# in the past week and has been more short of breath. He was 243# on his home scale last Monday and was 255# on his home scale prior to admission . He states he noted LE edema - which he never had in past and his shoes don't fit . He has been on PO Lasix per cardiology. He states he doesnt have a Renal doctor , has been following with his PCP and Dr. Arias(GI ) and Cardiology . He is aware that his kidneys labs were abnormal during his previous Hospitalization. He denies any N/V /D. He reports that he has Fluid in his belly- which is new as well and never had Paracentesis . He denies any NSAID's or any other OTC meds . No Hx of Nephrolithiasis . No Urinary complaints Currently he states his breathing is better , legs are still swollen and abdomen feels distended Past Medical History Cardiovascular: HTN Pulmonary: No pertinent hx GI: Diverticulosis, GERD Heme/Onc: Other (pancreatitis ) Hepatobiliary: Cholelithiasis Musculoskeletal: Osteoarthritis Renal/: No pertinent hx Past Surgical History Past Surgical History: Appendectomy, Cholecystectomy, Other (vasectomy, ERCP (x3) w/ sphincterotomy, bilateral knee surgeries, liver biopsy x 2) Family History Family History: Hypertension Social History Quit (1982) ALCOHOL: occassional Drugs: None Lives: with Family Current Medications Current Medications Current Medications Albuterol Sulfate (Ventolin Neb Soln) 2.5 mg PRN Q4HRS PRN NEB FOR ASTHMA; Start 10/30/18 at 14:45 Vitamin D (Vitamin D3) 2,000 unit DAILY PO Last administered on 10/31/18at 08:18; Start 10/30/18 at 15:00 Pantoprazole Sodium (Protonix) 40 mg PRN DAILY PRN PO heartburn; Start 10/30/18 at 14:45 Ursodiol (Actigall) 300 mg DAILY PO Last administered on 10/31/18at 08:17; Start 10/30/18 at 15:00 Ondansetron HCl (Zofran) 4 mg PRN Q6HRS PRN IV NAUSEA/VOMITING; Start 10/30/18 at 14:45 Acetaminophen (Tylenol) 650 mg PRN Q6HRS PRN PO Headaches, Temp > 101.5F; Start 10/30/18 at 14:45 Senna/Docusate Sodium (Senna Plus) 1 tab BID PO ; Start 10/30/18 at 21:00 Lactulose (Lactulose) 20 gm PRN Q12HR PRN PO CONSTIPATION; Start 10/30/18 at 14:45 Heparin Sodium (Porcine) (Heparin Sodium) 5,000 unit Q8HRS SQ Last administered on 10/31/18at 06:28; Start 10/30/18 at 15:00 Furosemide (Lasix) 40 mg TIDAC IVP Last administered on 10/31/18at 08:17; Start 10/30/18 at 16:30 Potassium Chloride (Klor-Con) 20 meq TIDWMEALS PO ; Start 10/30/18 at 17:00; Stop 10/30/18 at 17:00; Status DC Potassium Chloride/Water 100 ml @ 100 mls/hr Q1H IV Last administered on 10/30/18at 20:05; Start 10/30/18 at 15:00; Stop 10/30/18 at 16:59; Status DC Polyethylene Glycol (miraLAX PACKET) 17 gm DAILY PO ; Start 10/30/18 at 15:00 Potassium Chloride (Klor-Con) 20 meq BIDWMEALS PO Last administered on 10/31/18at 08:17; Start 10/30/18 at 17:00 Active Scripts Active Reported Proventil Hfa Inhaler (Albuterol Sulfate) 6.7 Gm Hfa.aer.ad 2 Puff IH PRN Q4HRS PRN Vitamin D3 (Cholecalciferol (Vitamin D3)) 1,000 Unit Tablet 2,000 Unit PO DAILY Ursodiol 300 Mg Capsule 300 Mg PO Vitamin D3 (Cholecalciferol (Vitamin D3)) 5,000 Unit Tablet 5,000 Unit PO DAILY Omeprazole 20 Mg Capsule.dr 20 Mg PO PRN Allergies Allergies: Coded Allergies: No Known Drug Allergies (Unverified , 10/12/18) ROS Review of System As per HPI Physical Exam Physical Exam GEN: Awake, Oriented x [], In [] distress EYES: Vision Unchanged, Conjunctiva Normal EN: No EN Drainage, Mucous Membranes [] NECK: [] JVD, [] JVP, Supple, [] Thyromegaly CVS: S1S2, [] Murmur, No Gallop, No Rub,[] Edema RESP: [] Rales, [] Rhonchi,[] Acc. Muscle Use GI: BS + ve, NO Bruit, Non Tender, Non Distended : [] CVA tenderness, [] Suprapubic Tenderness Vital Signs Vital Signs Date Time Temp Pulse Resp B/P (MAP) Pulse Ox O2 Delivery O2 Flow Rate FiO2 10/31/18 08:30 Room Air 10/31/18 07:00 97.5 72 17 98/57 (71) 90 97.5 10/30/18 14:00 2.0 Assessment & Plan IBAN- Pre-renal sec to Cardiac/Hepatic Etiology Cirrhosis and ascites on US Improving renal function , E-Lytes stable Check UA, Monitor CKD stage 2/3- Baseline Creat during Previous Hospitalization 1.2-1.3 Peaked to 1.6-2.0 CT and MRI show Bilat Renal Simple cysts Hypokalemia- Replace as indicated Cirrhosis, h/o recurrent choledocholithiasis, hyperbilirubinemia GI following, possibly will need paracentesis LE Edema- Sec to cirrhosis Hypoalbuminemia HTN- BP have been on the lower side Not on antihypertensives Cardiac- Preserved Systolic Function EF 60-65%. No significant valvular abnormalities. Dw Patient -- Labs Labs Laboratory Tests Test 10/30/18 11:30 10/31/18 08:05 10/31/18 08:06 White Blood Count 5.2 x10^3/uL (4.0-11.0) 4.4 x10^3/uL (4.0-11.0) Red Blood Count 4.22 x10^6/uL (4.30-5.70) 3.94 x10^6/uL (4.30-5.70) Hemoglobin 14.7 g/dL (13.0-17.5) 13.8 g/dL (13.0-17.5) Hematocrit 43.7 % (39.0-53.0) 40.6 % (39.0-53.0) Mean Corpuscular Volume 104 fL (79-100) 103 fL (79-100) Mean Corpuscular Hemoglobin 35 pg (25-35) 35 pg (25-35) Mean Corpuscular Hemoglobin Concent 34 g/dL (31-37) 34 g/dL (31-37) Red Cell Distribution Width 17.7 % (11.5-14.5) 17.6 % (11.5-14.5) Platelet Count 144 x10^3/uL (140-400) 124 x10^3/uL (140-400) Neutrophils (%) (Auto) 66 % (31-73) 63 % (31-73) Lymphocytes (%) (Auto) 12 % (24-48) 12 % (24-48) Monocytes (%) (Auto) 17 % (0-9) 18 % (0-9) Eosinophils (%) (Auto) 4 % (0-3) 7 % (0-3) Basophils (%) (Auto) 1 % (0-3) 1 % (0-3) Neutrophils # (Auto) 3.4 x10^3uL (1.8-7.7) 2.8 x10^3uL (1.8-7.7) Lymphocytes # (Auto) 0.6 x10^3/uL (1.0-4.8) 0.5 x10^3/uL (1.0-4.8) Monocytes # (Auto) 0.9 x10^3/uL (0.0-1.1) 0.8 x10^3/uL (0.0-1.1) Eosinophils # (Auto) 0.2 x10^3/uL (0.0-0.7) 0.3 x10^3/uL (0.0-0.7) Basophils # (Auto) 0.1 x10^3/uL (0.0-0.2) 0.0 x10^3/uL (0.0-0.2) Prothrombin Time 14.0 SEC (11.7-14.0) Prothromb Time International Ratio 1.1 (0.8-1.1) Activated Partial Thromboplast Time 34 SEC (24-38) Sodium Level 144 mmol/L (136-145) 146 mmol/L (136-145) Potassium Level 3.1 mmol/L (3.5-5.1) 3.4 mmol/L (3.5-5.1) Chloride Level 106 mmol/L (98-107) 109 mmol/L (98-107) Carbon Dioxide Level 26 mmol/L (21-32) 28 mmol/L (21-32) Anion Gap 12 (6-14) 9 (6-14) Blood Urea Nitrogen 24 mg/dL (8-26) 23 mg/dL (8-26) Creatinine 1.9 mg/dL (0.7-1.3) 1.6 mg/dL (0.7-1.3) Estimated GFR (Cockcroft-Gault) 34.5 42.1 Glucose Level 130 mg/dL (70-99) 93 mg/dL (70-99) Calcium Level 9.3 mg/dL (8.5-10.1) 8.8 mg/dL (8.5-10.1) Magnesium Level 2.1 mg/dL (1.8-2.4) Total Bilirubin 4.0 mg/dL (0.2-1.0) 3.8 mg/dL (0.2-1.0) Direct Bilirubin 3.0 mg/dL (0.0-0.2) Aspartate Amino Transf (AST/SGOT) 94 U/L (15-37) 80 U/L (15-37) Alanine Aminotransferase (ALT/SGPT) 62 U/L (16-63) 48 U/L (16-63) Alkaline Phosphatase 217 U/L (46-116) 173 U/L (46-116) Troponin I Quantitative 0.019 ng/mL (0.000-0.055) WS-Irw-A-Type Natriuretic Peptide 738 pg/mL (0-449) Total Protein 6.5 g/dL (6.4-8.2) 5.7 g/dL (6.4-8.2) Albumin 2.5 g/dL (3.4-5.0) 2.1 g/dL (3.4-5.0) Thyroid Stimulating Hormone (TSH) 4.310 uIU/mL (0.358-3.74) Segmented Neutrophils % 68 % (35-66) Band Neutrophils % 2 % (0-9) Lymphocytes % 10 % (24-48) Monocytes % 13 % (0-10) Eosinophils % 7 % (0-5) Platelet Estimate Adequate (ADEQUATE) BUN/Creatinine Ratio 14 (6-20) Albumin/Globulin Ratio 0.6 (1.0-1.7) Triglycerides Level 87 mg/dL (0-150) Cholesterol Level 160 mg/dL (0-200) LDL Cholesterol, Calculated 118 mg/dL (0-100) VLDL Cholesterol, Calculated 17 mg/dL (0-40) Non-HDL Cholesterol Calculated 135 mg/dL (0-129) HDL Cholesterol 25 mg/dL (40-60) Cholesterol/HDL Ratio 6.4 Laboratory Tests Test 10/30/18 11:30 10/31/18 08:05 10/31/18 08:06 White Blood Count 5.2 x10^3/uL (4.0-11.0) 4.4 x10^3/uL (4.0-11.0) Red Blood Count 4.22 x10^6/uL (4.30-5.70) 3.94 x10^6/uL (4.30-5.70) Hemoglobin 14.7 g/dL (13.0-17.5) 13.8 g/dL (13.0-17.5) Hematocrit 43.7 % (39.0-53.0) 40.6 % (39.0-53.0) Mean Corpuscular Volume 104 fL (79-100) 103 fL (79-100) Mean Corpuscular Hemoglobin 35 pg (25-35) 35 pg (25-35) Mean Corpuscular Hemoglobin Concent 34 g/dL (31-37) 34 g/dL (31-37) Red Cell Distribution Width 17.7 % (11.5-14.5) 17.6 % (11.5-14.5) Platelet Count 144 x10^3/uL (140-400) 124 x10^3/uL (140-400) Neutrophils (%) (Auto) 66 % (31-73) 63 % (31-73) Lymphocytes (%) (Auto) 12 % (24-48) 12 % (24-48) Monocytes (%) (Auto) 17 % (0-9) 18 % (0-9) Eosinophils (%) (Auto) 4 % (0-3) 7 % (0-3) Basophils (%) (Auto) 1 % (0-3) 1 % (0-3) Neutrophils # (Auto) 3.4 x10^3uL (1.8-7.7) 2.8 x10^3uL (1.8-7.7) Lymphocytes # (Auto) 0.6 x10^3/uL (1.0-4.8) 0.5 x10^3/uL (1.0-4.8) Monocytes # (Auto) 0.9 x10^3/uL (0.0-1.1) 0.8 x10^3/uL (0.0-1.1) Eosinophils # (Auto) 0.2 x10^3/uL (0.0-0.7) 0.3 x10^3/uL (0.0-0.7) Basophils # (Auto) 0.1 x10^3/uL (0.0-0.2) 0.0 x10^3/uL (0.0-0.2) Prothrombin Time 14.0 SEC (11.7-14.0) Prothromb Time International Ratio 1.1 (0.8-1.1) Activated Partial Thromboplast Time 34 SEC (24-38) Sodium Level 144 mmol/L (136-145) 146 mmol/L (136-145) Potassium Level 3.1 mmol/L (3.5-5.1) 3.4 mmol/L (3.5-5.1) Chloride Level 106 mmol/L (98-107) 109 mmol/L (98-107) Carbon Dioxide Level 26 mmol/L (21-32) 28 mmol/L (21-32) Anion Gap 12 (6-14) 9 (6-14) Blood Urea Nitrogen 24 mg/dL (8-26) 23 mg/dL (8-26) Creatinine 1.9 mg/dL (0.7-1.3) 1.6 mg/dL (0.7-1.3) Estimated GFR (Cockcroft-Gault) 34.5 42.1 Glucose Level 130 mg/dL (70-99) 93 mg/dL (70-99) Calcium Level 9.3 mg/dL (8.5-10.1) 8.8 mg/dL (8.5-10.1) Magnesium Level 2.1 mg/dL (1.8-2.4) Total Bilirubin 4.0 mg/dL (0.2-1.0) 3.8 mg/dL (0.2-1.0) Direct Bilirubin 3.0 mg/dL (0.0-0.2) Aspartate Amino Transf (AST/SGOT) 94 U/L (15-37) 80 U/L (15-37) Alanine Aminotransferase (ALT/SGPT) 62 U/L (16-63) 48 U/L (16-63) Alkaline Phosphatase 217 U/L (46-116) 173 U/L (46-116) Troponin I Quantitative 0.019 ng/mL (0.000-0.055) CE-Uvz-W-Type Natriuretic Peptide 738 pg/mL (0-449) Total Protein 6.5 g/dL (6.4-8.2) 5.7 g/dL (6.4-8.2) Albumin 2.5 g/dL (3.4-5.0) 2.1 g/dL (3.4-5.0) Thyroid Stimulating Hormone (TSH) 4.310 uIU/mL (0.358-3.74) Segmented Neutrophils % 68 % (35-66) Band Neutrophils % 2 % (0-9) Lymphocytes % 10 % (24-48) Monocytes % 13 % (0-10) Eosinophils % 7 % (0-5) Platelet Estimate Adequate (ADEQUATE) BUN/Creatinine Ratio 14 (6-20) Albumin/Globulin Ratio 0.6 (1.0-1.7) Triglycerides Level 87 mg/dL (0-150) Cholesterol Level 160 mg/dL (0-200) LDL Cholesterol, Calculated 118 mg/dL (0-100) VLDL Cholesterol, Calculated 17 mg/dL (0-40) Non-HDL Cholesterol Calculated 135 mg/dL (0-129) HDL Cholesterol 25 mg/dL (40-60) Cholesterol/HDL Ratio 6.4 Review All relevant outside records, renal labs, imaging studies, telemetry/EKG's were reviewed. Images Images Us- Cirrhotic morphology of liver. Large amount of ascites is seen. Abdomen MRI with MRCP 2018- Hepatic parenchyma is normal in signal intensity. There is mild intrahepatic biliary ductal dilatation. There is a 10 x 8 mm filling defect within the distal common bile duct, proximal to the confluence with the main pancreatic duct. This finding is approximately 2.0-2.5 cm from the ampulla suspicious for choledocholithiasis. Main pancreatic duct is normal in caliber. Common bile duct measures up to 5 mm. Left hepatic duct measures up to 8 mm. Right hepatic duct measures up to 4 mm. Spleen, bilateral adrenal glands and pancreas are normal in appearance. Simple appearing renal cysts are identified in the kidneys bilaterally measuring up to 2.2 cm in the superior pole the right kidney. Simple renal cysts measure up to 1.9 cm in the posterior midpole the left kidney. There is no hydronephrosis. No suspicious renal mass. Small large bowel are normal in caliber without evidence for bowel obstruction. Small volume ascites is noted. No pathologically enlarged lymph nodes are identified in the abdomen. There is no free intraperitoneal air. IMPRESSION: 1. Filling defect within the distal common bile duct may represent choledocholithiasis versus debris or blood clot. 2. Mild intrahepatic and extra hepatic biliary ductal dilatation. Common bile duct measures 5-8 mm. Left hepatic duct measures up to 8 mm. Right hepatic duct measures up to 4 mm. Biliary dilatation is improved since prior MRI from May 10, 2017. CT Abdomen- 2017 Spleen and adrenal glands unremarkable. There are bilateral renal cortical cysts and additional renal hypodensities which are too small to definitely characterize. No hydronephrosis. BARRY SR MD October 31, 2018 11:03
--- NOTE | 2018-10-31 12:27 | PDOC ---
PROGRESS NOTES Chief Complaint Chief Complaint PMHx HTN, OA, choledocholithiasis, cholecystectomy, chronic recurrent hyperbilirubinemia s/p ERCP (x3) w/ sphincterotomy, bilateral knee surgeries, liver biopsy x 2, expl lap w/ appendectomy who presented to cardiology for echocardiogram REVIEWED and noted he has gained 12# in the past week and has been more short of breath. He was 243# on his home scale last monday and was 255# on his home scale 10/29 Cirrhosis, h/o recurrent choledocholithiasis, hyperbilirubinemia, macrocytosis, IBAN GI following, possibly will need paracentesis Cirrhotic morphology of liver. Large amount of ascites is seen. 46 MIN PT EXAM, CHART REVIEW, > 50% OF TIME SPENT WITH EXAM, CHART REVIEW, PT CARE COORDINATION History of Present Illness History of Present Illness VTE Prophylaxis Ordered VTE Prophylaxis Devices: Yes VTE Pharmacological Prophylaxi: Yes Assessment/Plan Assessment/Plan A/P: LE edema - with 12# weight gain, WONG, and orthopnea this is an acute diastolic CHF exacerbation. Lasix 40mg IV TID. Consult cardiology IBAN - likely vasomotor vs cardiorenal syndrome. Will diurese based on his LE edema. If cr increases over the next 24 hours will need to consult nephrology Hypokalemia - will replace with his diuresis and check mag level HTN - cont home meds, hold off on ELIAZAR or ARB at this time with Cr elevation OA - tylenol for pain Transaminitis - possibly residual from recent ERCP, will consult GI H/o choledocholithiasis - s/p cholecystectomy, chronic recurrent hyperbilirubinemia s/p ERCP (x3) w/ sphincterotomy - was to have CT abdomen tomorrow, will consult GI with his bilirubin up to 4 now Moderate protein calorie malnutrition - he appears cachectic despite his weight gain FEN - Cardiac diet PPX - Heparin TID FULL CODE Inpatient CVC for acute diastolic CHF, likely 2 midnight admission Vitals Vitals Vital Signs Date Time Temp Pulse Resp B/P (MAP) Pulse Ox O2 Delivery O2 Flow Rate FiO2 10/31/18 11:00 97.6 77 16 105/68 (80) 92 Room Air 97.6 10/30/18 14:00 2.0 Physical Exam General: Alert, Oriented X3, Cooperative, No acute distress Heart: Regular rate, Normal S1, Normal S2, No murmurs Lungs: Clear Abdomen: Normal bowel sounds, Soft, Other (ascites LARGE) Extremities: No cyanosis, Other (Significant bilateral LE edema ) Skin: No significant lesion Labs LABS Mitral Valve MV E Velocity 82.6cm/s MV DECEL TIME 195ms MV A Velocity 109.2cm/s E/A Ratio 0.8 Tricuspid Valve TR P. Velocity 162cm/s RAP ESTIMATE 3mmHg TR Peak Gr. 11mmHg RVSP 14mmHg Pulmonary Vein S1 Velocity 50.2cm/s D2 Velocity 24.8cm/s LEFT VENTRICLE The left ventricle is normal size. There is normal left ventricular wall thickness. The left ventricular systolic function is normal. The Ejection Fraction is 60-65%. There is normal LV segmental wall motion. Transmitral Doppler flow pattern is Grade I-abnormal relaxation pattern. RIGHT VENTRICLE The right ventricle is normal size. The right ventricular systolic function is normal. ATRIA The left atrium size is normal. The right atrium size is normal. The interatrial septum is intact with no evidence for an atrial septal defect or patent foramen ovale as noted on 2-D or Doppler imaging. AORTIC VALVE The aortic valve is calcified but opens well. Doppler and Color Flow revealed no significant aortic regurgitation. There is no significant aortic valvular stenosis. MITRAL VALVE The mitral valve is normal in structure and function. There is no evidence of mitral valve prolapse. There is no mitral valve stenosis. Doppler and Color Flow revealed no mitral valve regurgitation noted. TRICUSPID VALVE The tricuspid valve is normal in structure and function. Doppler and Color Flow revealed no tricuspid valve regurgitation noted. There is no tricuspid valve stenosis. PULMONIC VALVE The pulmonic valve is not well visualized. GREAT VESSELS The aortic root is normal in size. The ascending aorta is not well seen. The IVC was not visualized. PERICARDIAL EFFUSION There is large pleural effusion. There is no evidence of significant pericardial effusion. Critical Notification Critical Value: No <Conclusion> The left ventricular systolic function is normal. The Ejection Fraction is 60-65%. There is normal LV segmental wall motion. Transmitral Doppler flow pattern is Grade I-abnormal relaxation pattern. No significant valvular abnormalities. There is no evidence of significant pericardial effusion. Signed by : Sohan Woods, : 1940 LOCATION: [address] [place] [address] AGE: 78 SEX: M EXAM STATUS: ADM IN ORD. PHYSICIAN: GUILLERMINA JAUREGUI REASON: elevated bili, ?ascites PROCEDURE: ABDOMEN LTD Indication: Elevated bilirubin. Evaluate for ascites. Technique: Limited ultrasound of the abdomen COMPARISON: None FINDINGS: Cirrhotic morphology of liver. Large amount of ascites is seen. IMPRESSION: As above. Electronically signed by: Fredo Harkins DO (10/31/2018 2:57 AM) [facility] [place] [facility] [place] DICTATED and SIGNED BY: FREDO HARKINS DO DATE: 10/31/18 025 Laboratory Tests Test 10/31/18 08:05 10/31/18 08:06 White Blood Count 4.4 x10^3/uL (4.0-11.0) Red Blood Count 3.94 x10^6/uL (4.30-5.70) Hemoglobin 13.8 g/dL (13.0-17.5) Hematocrit 40.6 % (39.0-53.0) Mean Corpuscular Volume 103 fL (79-100) Mean Corpuscular Hemoglobin 35 pg (25-35) Mean Corpuscular Hemoglobin Concent 34 g/dL (31-37) Red Cell Distribution Width 17.6 % (11.5-14.5) Platelet Count 124 x10^3/uL (140-400) Neutrophils (%) (Auto) 63 % (31-73) Lymphocytes (%) (Auto) 12 % (24-48) Monocytes (%) (Auto) 18 % (0-9) Eosinophils (%) (Auto) 7 % (0-3) Basophils (%) (Auto) 1 % (0-3) Neutrophils # (Auto) 2.8 x10^3uL (1.8-7.7) Lymphocytes # (Auto) 0.5 x10^3/uL (1.0-4.8) Monocytes # (Auto) 0.8 x10^3/uL (0.0-1.1) Eosinophils # (Auto) 0.3 x10^3/uL (0.0-0.7) Basophils # (Auto) 0.0 x10^3/uL (0.0-0.2) Segmented Neutrophils % 68 % (35-66) Band Neutrophils % 2 % (0-9) Lymphocytes % 10 % (24-48) Monocytes % 13 % (0-10) Eosinophils % 7 % (0-5) Platelet Estimate Adequate (ADEQUATE) Sodium Level 146 mmol/L (136-145) Potassium Level 3.4 mmol/L (3.5-5.1) Chloride Level 109 mmol/L (98-107) Carbon Dioxide Level 28 mmol/L (21-32) Anion Gap 9 (6-14) Blood Urea Nitrogen 23 mg/dL (8-26) Creatinine 1.6 mg/dL (0.7-1.3) Estimated GFR (Cockcroft-Gault) 42.1 BUN/Creatinine Ratio 14 (6-20) Glucose Level 93 mg/dL (70-99) Calcium Level 8.8 mg/dL (8.5-10.1) Total Bilirubin 3.8 mg/dL (0.2-1.0) Aspartate Amino Transf (AST/SGOT) 80 U/L (15-37) Alanine Aminotransferase (ALT/SGPT) 48 U/L (16-63) Alkaline Phosphatase 173 U/L (46-116) Total Protein 5.7 g/dL (6.4-8.2) Albumin 2.1 g/dL (3.4-5.0) Albumin/Globulin Ratio 0.6 (1.0-1.7) Triglycerides Level 87 mg/dL (0-150) Cholesterol Level 160 mg/dL (0-200) LDL Cholesterol, Calculated 118 mg/dL (0-100) VLDL Cholesterol, Calculated 17 mg/dL (0-40) Non-HDL Cholesterol Calculated 135 mg/dL (0-129) HDL Cholesterol 25 mg/dL (40-60) Cholesterol/HDL Ratio 6.4 Comment Review of Relevant I have reviewed the following items jadon (where applicable) has been applied. Labs Laboratory Tests Test 10/30/18 11:30 10/31/18 08:05 10/31/18 08:06 White Blood Count 5.2 x10^3/uL (4.0-11.0) 4.4 x10^3/uL (4.0-11.0) Red Blood Count 4.22 x10^6/uL (4.30-5.70) 3.94 x10^6/uL (4.30-5.70) Hemoglobin 14.7 g/dL (13.0-17.5) 13.8 g/dL (13.0-17.5) Hematocrit 43.7 % (39.0-53.0) 40.6 % (39.0-53.0) Mean Corpuscular Volume 104 fL (79-100) 103 fL (79-100) Mean Corpuscular Hemoglobin 35 pg (25-35) 35 pg (25-35) Mean Corpuscular Hemoglobin Concent 34 g/dL (31-37) 34 g/dL (31-37) Red Cell Distribution Width 17.7 % (11.5-14.5) 17.6 % (11.5-14.5) Platelet Count 144 x10^3/uL (140-400) 124 x10^3/uL (140-400) Neutrophils (%) (Auto) 66 % (31-73) 63 % (31-73) Lymphocytes (%) (Auto) 12 % (24-48) 12 % (24-48) Monocytes (%) (Auto) 17 % (0-9) 18 % (0-9) Eosinophils (%) (Auto) 4 % (0-3) 7 % (0-3) Basophils (%) (Auto) 1 % (0-3) 1 % (0-3) Neutrophils # (Auto) 3.4 x10^3uL (1.8-7.7) 2.8 x10^3uL (1.8-7.7) Lymphocytes # (Auto) 0.6 x10^3/uL (1.0-4.8) 0.5 x10^3/uL (1.0-4.8) Monocytes # (Auto) 0.9 x10^3/uL (0.0-1.1) 0.8 x10^3/uL (0.0-1.1) Eosinophils # (Auto) 0.2 x10^3/uL (0.0-0.7) 0.3 x10^3/uL (0.0-0.7) Basophils # (Auto) 0.1 x10^3/uL (0.0-0.2) 0.0 x10^3/uL (0.0-0.2) Prothrombin Time 14.0 SEC (11.7-14.0) Prothromb Time International Ratio 1.1 (0.8-1.1) Activated Partial Thromboplast Time 34 SEC (24-38) Sodium Level 144 mmol/L (136-145) 146 mmol/L (136-145) Potassium Level 3.1 mmol/L (3.5-5.1) 3.4 mmol/L (3.5-5.1) Chloride Level 106 mmol/L (98-107) 109 mmol/L (98-107) Carbon Dioxide Level 26 mmol/L (21-32) 28 mmol/L (21-32) Anion Gap 12 (6-14) 9 (6-14) Blood Urea Nitrogen 24 mg/dL (8-26) 23 mg/dL (8-26) Creatinine 1.9 mg/dL (0.7-1.3) 1.6 mg/dL (0.7-1.3) Estimated GFR (Cockcroft-Gault) 34.5 42.1 Glucose Level 130 mg/dL (70-99) 93 mg/dL (70-99) Calcium Level 9.3 mg/dL (8.5-10.1) 8.8 mg/dL (8.5-10.1) Magnesium Level 2.1 mg/dL (1.8-2.4) Total Bilirubin 4.0 mg/dL (0.2-1.0) 3.8 mg/dL (0.2-1.0) Direct Bilirubin 3.0 mg/dL (0.0-0.2) Aspartate Amino Transf (AST/SGOT) 94 U/L (15-37) 80 U/L (15-37) Alanine Aminotransferase (ALT/SGPT) 62 U/L (16-63) 48 U/L (16-63) Alkaline Phosphatase 217 U/L (46-116) 173 U/L (46-116) Troponin I Quantitative 0.019 ng/mL (0.000-0.055) UX-Azm-C-Type Natriuretic Peptide 738 pg/mL (0-449) Total Protein 6.5 g/dL (6.4-8.2) 5.7 g/dL (6.4-8.2) Albumin 2.5 g/dL (3.4-5.0) 2.1 g/dL (3.4-5.0) Thyroid Stimulating Hormone (TSH) 4.310 uIU/mL (0.358-3.74) Segmented Neutrophils % 68 % (35-66) Band Neutrophils % 2 % (0-9) Lymphocytes % 10 % (24-48) Monocytes % 13 % (0-10) Eosinophils % 7 % (0-5) Platelet Estimate Adequate (ADEQUATE) BUN/Creatinine Ratio 14 (6-20) Albumin/Globulin Ratio 0.6 (1.0-1.7) Triglycerides Level 87 mg/dL (0-150) Cholesterol Level 160 mg/dL (0-200) LDL Cholesterol, Calculated 118 mg/dL (0-100) VLDL Cholesterol, Calculated 17 mg/dL (0-40) Non-HDL Cholesterol Calculated 135 mg/dL (0-129) HDL Cholesterol 25 mg/dL (40-60) Cholesterol/HDL Ratio 6.4 Laboratory Tests Test 10/31/18 08:05 10/31/18 08:06 White Blood Count 4.4 x10^3/uL (4.0-11.0) Red Blood Count 3.94 x10^6/uL (4.30-5.70) Hemoglobin 13.8 g/dL (13.0-17.5) Hematocrit 40.6 % (39.0-53.0) Mean Corpuscular Volume 103 fL (79-100) Mean Corpuscular Hemoglobin 35 pg (25-35) Mean Corpuscular Hemoglobin Concent 34 g/dL (31-37) Red Cell Distribution Width 17.6 % (11.5-14.5) Platelet Count 124 x10^3/uL (140-400) Neutrophils (%) (Auto) 63 % (31-73) Lymphocytes (%) (Auto) 12 % (24-48) Monocytes (%) (Auto) 18 % (0-9) Eosinophils (%) (Auto) 7 % (0-3) Basophils (%) (Auto) 1 % (0-3) Neutrophils # (Auto) 2.8 x10^3uL (1.8-7.7) Lymphocytes # (Auto) 0.5 x10^3/uL (1.0-4.8) Monocytes # (Auto) 0.8 x10^3/uL (0.0-1.1) Eosinophils # (Auto) 0.3 x10^3/uL (0.0-0.7) Basophils # (Auto) 0.0 x10^3/uL (0.0-0.2) Segmented Neutrophils % 68 % (35-66) Band Neutrophils % 2 % (0-9) Lymphocytes % 10 % (24-48) Monocytes % 13 % (0-10) Eosinophils % 7 % (0-5) Platelet Estimate Adequate (ADEQUATE) Sodium Level 146 mmol/L (136-145) Potassium Level 3.4 mmol/L (3.5-5.1) Chloride Level 109 mmol/L (98-107) Carbon Dioxide Level 28 mmol/L (21-32) Anion Gap 9 (6-14) Blood Urea Nitrogen 23 mg/dL (8-26) Creatinine 1.6 mg/dL (0.7-1.3) Estimated GFR (Cockcroft-Gault) 42.1 BUN/Creatinine Ratio 14 (6-20) Glucose Level 93 mg/dL (70-99) Calcium Level 8.8 mg/dL (8.5-10.1) Total Bilirubin 3.8 mg/dL (0.2-1.0) Aspartate Amino Transf (AST/SGOT) 80 U/L (15-37) Alanine Aminotransferase (ALT/SGPT) 48 U/L (16-63) Alkaline Phosphatase 173 U/L (46-116) Total Protein 5.7 g/dL (6.4-8.2) Albumin 2.1 g/dL (3.4-5.0) Albumin/Globulin Ratio 0.6 (1.0-1.7) Triglycerides Level 87 mg/dL (0-150) Cholesterol Level 160 mg/dL (0-200) LDL Cholesterol, Calculated 118 mg/dL (0-100) VLDL Cholesterol, Calculated 17 mg/dL (0-40) Non-HDL Cholesterol Calculated 135 mg/dL (0-129) HDL Cholesterol 25 mg/dL (40-60) Cholesterol/HDL Ratio 6.4 Medications Current Medications Albuterol Sulfate (Ventolin Neb Soln) 2.5 mg PRN Q4HRS PRN NEB FOR ASTHMA; Start 10/30/18 at 14:45 Vitamin D (Vitamin D3) 2,000 unit DAILY PO Last administered on 10/31/18at 08:18; Start 10/30/18 at 15:00 Pantoprazole Sodium (Protonix) 40 mg PRN DAILY PRN PO heartburn; Start 10/30/18 at 14:45 Ursodiol (Actigall) 300 mg DAILY PO Last administered on 10/31/18at 08:17; Start 10/30/18 at 15:00 Ondansetron HCl (Zofran) 4 mg PRN Q6HRS PRN IV NAUSEA/VOMITING; Start 10/30/18 at 14:45 Acetaminophen (Tylenol) 650 mg PRN Q6HRS PRN PO Headaches, Temp > 101.5F; Start 10/30/18 at 14:45 Senna/Docusate Sodium (Senna Plus) 1 tab BID PO ; Start 10/30/18 at 21:00 Lactulose (Lactulose) 20 gm PRN Q12HR PRN PO CONSTIPATION; Start 10/30/18 at 14:45 Heparin Sodium (Porcine) (Heparin Sodium) 5,000 unit Q8HRS SQ Last administered on 10/31/18at 06:28; Start 10/30/18 at 15:00 Furosemide (Lasix) 40 mg TIDAC IVP Last administered on 10/31/18at 11:20; Start 10/30/18 at 16:30 Potassium Chloride (Klor-Con) 20 meq TIDWMEALS PO ; Start 10/30/18 at 17:00; Stop 10/30/18 at 17:00; Status DC Potassium Chloride/Water 100 ml @ 100 mls/hr Q1H IV Last administered on 10/30/18at 20:05; Start 10/30/18 at 15:00; Stop 10/30/18 at 16:59; Status DC Polyethylene Glycol (miraLAX PACKET) 17 gm DAILY PO ; Start 10/30/18 at 15:00 Potassium Chloride (Klor-Con) 20 meq BIDWMEALS PO Last administered on 10/31/18at 08:17; Start 10/30/18 at 17:00 Active Scripts Active Reported Proventil Hfa Inhaler (Albuterol Sulfate) 6.7 Gm Hfa.aer.ad 2 Puff IH PRN Q4HRS PRN Vitamin D3 (Cholecalciferol (Vitamin D3)) 1,000 Unit Tablet 2,000 Unit PO DAILY Ursodiol 300 Mg Capsule 300 Mg PO Vitamin D3 (Cholecalciferol (Vitamin D3)) 5,000 Unit Tablet 5,000 Unit PO DAILY Omeprazole 20 Mg Capsule.dr 20 Mg PO PRN Vitals/I & O Vital Sign - Last 24 Hours 10/30/18 10/30/18 10/30/18 4/30/19 14:00 15:00 19:20 20:01 Temp 97.5 97.5 97.5 97.5 97.5 97.5 Pulse 111 87 104 Resp 16 18 20 B/P (MAP) 135/87 (103) 99/57 (71) 104/52 (69) Pulse Ox 94 92 91 O2 Delivery Nasal Cannula Room Air Room Air Room Air O2 Flow Rate 2.0 10/30/18 10/30/18 10/31/18 10/31/18 20:51 23:25 03:45 07:00 Temp 98.1 97.8 97.5 98.1 97.8 97.5 Pulse 84 71 72 Resp 18 20 17 B/P (MAP) 97/62 (74) 97/57 (70) 98/57 (71) Pulse Ox 94 91 92 90 O2 Delivery Room Air Room Air Room Air Room Air 10/31/18 10/31/18 08:30 11:00 Temp 97.6 97.6 Pulse 77 Resp 16 B/P (MAP) 105/68 (80) Pulse Ox 92 O2 Delivery Room Air Room Air Intake and Output 10/30/18 10/30/18 10/31/18 15:00 23:00 07:00 Intake Total 100 ml 800 ml Output Total 750 ml 250 ml Balance -650 ml 550 ml BERNARD GRACE MD October 31, 2018 12:27
[2018-10-31 13:57] LABS: BILIRUBIN,URINE NEGATIVE (NEG); CLARITY,URINE CLEAR; COLOR,URINE YELLOW; NITRITE,URINE NEGATIVE (NEG); PROTEIN,URINE NEGATIVE (NEG-TRACE)
[2018-10-31 14:17] LABS: BACTERIA,URINE 0 /HPF (0-FEW); RBC,URINE 0 /HPF (0-2); SQUAMOUS EPITHELIAL CELL,UR OCC /LPF; WBC,URINE OCC /HPF (0-4)
--- NOTE | 2018-10-31 15:52 | NUR ---
SS following for discharge planning. SS reviewed pt chart. Pt is from home and is currently on room air. No discharge needs noted at this time. SS will continue to follow for discharge planning.
[2018-11-01 03:10] LABS: HEMOGLOBIN A1C 4.9 % (4.8-5.6)
[2018-11-01 03:56] VITALS: BP 102/56
[2018-11-01] MEDS: HEPARIN for SUB-Q USE 5,000 UNIT/ML VIAL. SQ SCH ×2 (06:00→14:00)
[2018-11-01 07:00] VITALS: BP 92/59
[2018-11-01 08:32] LABS: BASO % 1 % (0-3); EOS # 0.2 x10^3/uL (0.0-0.7); EOS % 5 % (0-3); HEMATOCRIT 38.2 % (39.0-53.0); HEMOGLOBIN 13.3 g/dL (13.0-17.5); LYMPH # 0.6 x10^3/uL (1.0-4.8); LYMPH % 14 % (24-48); MEAN CORPUSCULAR HEMOGLOBIN 36 pg (25-35); MEAN CORPUSCULAR HGB CONC 35 g/dL (31-37); MEAN CORPUSCULAR VOLUME 103 fL (79-100); MONO # 0.7 x10^3/uL (0.0-1.1); MONO % 17 % (0-9); NEUT # 2.8 x10^3uL (1.8-7.7); NEUT % 63 % (31-73); PLATELET COUNT 122 x10^3/uL (140-400); RED BLOOD COUNT 3.72 x10^6/uL (4.30-5.70); RED CELL DISTRIBUTION WIDTH 17.6 % (11.5-14.5); WHITE BLOOD COUNT 4.4 x10^3/uL (4.0-11.0)
[2018-11-01] MEDS: FUROSEMIDE 40 MG/4 ML VIAL. IVP SCH ×2 (08:49→11:30)
[2018-11-01 08:53] LABS: ALBUMIN 1.9 g/dL (3.4-5.0); ALBUMIN/GLOBULIN RATIO 0.6 (1.0-1.7); CALCIUM 8.5 mg/dL (8.5-10.1); CREATININE 1.6 mg/dL (0.7-1.3); GFR 42.1; POTASSIUM 3.4 mmol/L (3.5-5.1); TOTAL BILIRUBIN 3.3 mg/dL (0.2-1.0); TOTAL PROTEIN 5.2 g/dL (6.4-8.2)
[2018-11-01] MEDS: SENNOSIDES/DOCUSATE 8.6/50MG TABLET. PO SCH (09:00)
[2018-11-01] MEDS: POLYETHYLENE GLYCOL 3350 17 GM PACKET. PO SCH (09:00)
--- NOTE | 2018-11-01 09:49 | PDOC ---
PROGRESS NOTES Chief Complaint Chief Complaint PMHx HTN, OA, choledocholithiasis, cholecystectomy, chronic recurrent hyperbilirubinemia s/p ERCP (x3) w/ sphincterotomy, bilateral knee surgeries, liver biopsy x 2, expl lap w/ appendectomy who presented to cardiology for echocardiogram REVIEWED and noted he has gained 12# in the past week and has been more short of breath. He was 243# on his home scale last monday and was 255# on his home scale 10/29 Cirrhosis, h/o recurrent choledocholithiasis, hyperbilirubinemia, macrocytosis, IBAN HYPOKALEMIA ON REPLACEMENT GI following, // paracentesis Cirrhotic morphology of liver. Large amount of ascites is seen. mrcp today 43 MIN PT EXAM, CHART REVIEW, > 50% OF TIME SPENT WITH EXAM, CHART REVIEW, PT CARE COORDINATION History of Present Illness History of Present Illness VTE Prophylaxis Ordered VTE Prophylaxis Devices: Yes VTE Pharmacological Prophylaxi: Yes Assessment/Plan Assessment/Plan A/P: LE edema - with 12# weight gain, WONG, and orthopnea this is an acute diastolic CHF exacerbation. Lasix 40mg IV TID. Consult cardiology IBAN - likely vasomotor vs cardiorenal syndrome. Will diurese based on his LE edema. If cr increases over the next 24 hours will need to consult nephrology Hypokalemia - will replace with his diuresis and check mag level HTN - cont home meds, hold off on ELIAZAR or ARB at this time with Cr elevation OA - tylenol for pain Transaminitis - possibly residual from recent ERCP, will consult GI H/o choledocholithiasis - s/p cholecystectomy, chronic recurrent hyperbilirubinemia s/p ERCP (x3) w/ sphincterotomy - was to have CT abdomen tomorrow, will consult GI with his bilirubin up to 4 now Moderate protein calorie malnutrition - he appears cachectic despite his weight gain FEN - Cardiac diet PPX - Heparin TID FULL CODE Inpatient CVC for acute diastolic CHF, likely 2 midnight admission MRCP TODAY Vitals Vitals Vital Signs Date Time Temp Pulse Resp B/P (MAP) Pulse Ox O2 Delivery O2 Flow Rate FiO2 11/01/18 08:12 Room Air 11/01/18 07:00 97.4 79 18 92/59 (70) 90 97.4 11/01/18 03:56 2.0 Physical Exam General: Alert, Oriented X3, Cooperative, No acute distress Heart: Regular rate, Normal S1, Normal S2, No murmurs Lungs: Clear Abdomen: Normal bowel sounds, Soft, Other (ascites LARGE) Extremities: No cyanosis, Other (Significant bilateral LE edema 3 PLUS) Skin: No significant lesion Labs LABS Laboratory Tests Test 10/31/18 13:40 11/01/18 07:53 Urine Color Yellow Urine Clarity Clear Urine pH 6.0 Urine Specific [place] <=1.005 Urine Protein Negative mg/dL (NEG-TRACE) Urine Glucose (UA) Negative mg/dL (NEG) Urine Ketones (Stick) Negative mg/dL (NEG) Urine Blood Negative (NEG) Urine Nitrite Negative (NEG) Urine Bilirubin Negative (NEG) Urine Urobilinogen Dipstick 1.0 mg/dL (0.2 mg/dL) Urine Leukocyte Esterase Negative (NEG) Urine RBC 0 /HPF (0-2) Urine WBC Occ /HPF (0-4) Urine Squamous Epithelial Cells Occ /LPF Urine Bacteria 0 /HPF (0-FEW) White Blood Count 4.4 x10^3/uL (4.0-11.0) Red Blood Count 3.72 x10^6/uL (4.30-5.70) Hemoglobin 13.3 g/dL (13.0-17.5) Hematocrit 38.2 % (39.0-53.0) Mean Corpuscular Volume 103 fL (79-100) Mean Corpuscular Hemoglobin 36 pg (25-35) Mean Corpuscular Hemoglobin Concent 35 g/dL (31-37) Red Cell Distribution Width 17.6 % (11.5-14.5) Platelet Count 122 x10^3/uL (140-400) Neutrophils (%) (Auto) 63 % (31-73) Lymphocytes (%) (Auto) 14 % (24-48) Monocytes (%) (Auto) 17 % (0-9) Eosinophils (%) (Auto) 5 % (0-3) Basophils (%) (Auto) 1 % (0-3) Neutrophils # (Auto) 2.8 x10^3uL (1.8-7.7) Lymphocytes # (Auto) 0.6 x10^3/uL (1.0-4.8) Monocytes # (Auto) 0.7 x10^3/uL (0.0-1.1) Eosinophils # (Auto) 0.2 x10^3/uL (0.0-0.7) Basophils # (Auto) 0.0 x10^3/uL (0.0-0.2) Sodium Level 146 mmol/L (136-145) Potassium Level 3.4 mmol/L (3.5-5.1) Chloride Level 110 mmol/L (98-107) Carbon Dioxide Level 29 mmol/L (21-32) Anion Gap 7 (6-14) Blood Urea Nitrogen 21 mg/dL (8-26) Creatinine 1.6 mg/dL (0.7-1.3) Estimated GFR (Cockcroft-Gault) 42.1 BUN/Creatinine Ratio 13 (6-20) Glucose Level 89 mg/dL (70-99) Calcium Level 8.5 mg/dL (8.5-10.1) Total Bilirubin 3.3 mg/dL (0.2-1.0) Aspartate Amino Transf (AST/SGOT) 71 U/L (15-37) Alanine Aminotransferase (ALT/SGPT) 41 U/L (16-63) Alkaline Phosphatase 153 U/L (46-116) Total Protein 5.2 g/dL (6.4-8.2) Albumin 1.9 g/dL (3.4-5.0) Albumin/Globulin Ratio 0.6 (1.0-1.7) Comment Review of Relevant I have reviewed the following items jadon (where applicable) has been applied. Labs Laboratory Tests Test 10/30/18 11:30 10/31/18 08:05 10/31/18 08:06 10/31/18 13:40 White Blood Count 5.2 x10^3/uL (4.0-11.0) 4.4 x10^3/uL (4.0-11.0) Red Blood Count 4.22 x10^6/uL (4.30-5.70) 3.94 x10^6/uL (4.30-5.70) Hemoglobin 14.7 g/dL (13.0-17.5) 13.8 g/dL (13.0-17.5) Hematocrit 43.7 % (39.0-53.0) 40.6 % (39.0-53.0) Mean Corpuscular Volume 104 fL (79-100) 103 fL (79-100) Mean Corpuscular Hemoglobin 35 pg (25-35) 35 pg (25-35) Mean Corpuscular Hemoglobin Concent 34 g/dL (31-37) 34 g/dL (31-37) Red Cell Distribution Width 17.7 % (11.5-14.5) 17.6 % (11.5-14.5) Platelet Count 144 x10^3/uL (140-400) 124 x10^3/uL (140-400) Neutrophils (%) (Auto) 66 % (31-73) 63 % (31-73) Lymphocytes (%) (Auto) 12 % (24-48) 12 % (24-48) Monocytes (%) (Auto) 17 % (0-9) 18 % (0-9) Eosinophils (%) (Auto) 4 % (0-3) 7 % (0-3) Basophils (%) (Auto) 1 % (0-3) 1 % (0-3) Neutrophils # (Auto) 3.4 x10^3uL (1.8-7.7) 2.8 x10^3uL (1.8-7.7) Lymphocytes # (Auto) 0.6 x10^3/uL (1.0-4.8) 0.5 x10^3/uL (1.0-4.8) Monocytes # (Auto) 0.9 x10^3/uL (0.0-1.1) 0.8 x10^3/uL (0.0-1.1) Eosinophils # (Auto) 0.2 x10^3/uL (0.0-0.7) 0.3 x10^3/uL (0.0-0.7) Basophils # (Auto) 0.1 x10^3/uL (0.0-0.2) 0.0 x10^3/uL (0.0-0.2) Prothrombin Time 14.0 SEC (11.7-14.0) Prothromb Time International Ratio 1.1 (0.8-1.1) Activated Partial Thromboplast Time 34 SEC (24-38) Sodium Level 144 mmol/L (136-145) 146 mmol/L (136-145) Potassium Level 3.1 mmol/L (3.5-5.1) 3.4 mmol/L (3.5-5.1) Chloride Level 106 mmol/L (98-107) 109 mmol/L (98-107) Carbon Dioxide Level 26 mmol/L (21-32) 28 mmol/L (21-32) Anion Gap 12 (6-14) 9 (6-14) Blood Urea Nitrogen 24 mg/dL (8-26) 23 mg/dL (8-26) Creatinine 1.9 mg/dL (0.7-1.3) 1.6 mg/dL (0.7-1.3) Estimated GFR (Cockcroft-Gault) 34.5 42.1 Glucose Level 130 mg/dL (70-99) 93 mg/dL (70-99) Hemoglobin A1c 4.9 % (4.8-5.6) Calcium Level 9.3 mg/dL (8.5-10.1) 8.8 mg/dL (8.5-10.1) Magnesium Level 2.1 mg/dL (1.8-2.4) Total Bilirubin 4.0 mg/dL (0.2-1.0) 3.8 mg/dL (0.2-1.0) Direct Bilirubin 3.0 mg/dL (0.0-0.2) Aspartate Amino Transf (AST/SGOT) 94 U/L (15-37) 80 U/L (15-37) Alanine Aminotransferase (ALT/SGPT) 62 U/L (16-63) 48 U/L (16-63) Alkaline Phosphatase 217 U/L (46-116) 173 U/L (46-116) Troponin I Quantitative 0.019 ng/mL (0.000-0.055) VY-[id number]-I-Type Natriuretic Peptide 738 pg/mL (0-449) Total Protein 6.5 g/dL (6.4-8.2) 5.7 g/dL (6.4-8.2) Albumin 2.5 g/dL (3.4-5.0) 2.1 g/dL (3.4-5.0) Thyroid Stimulating Hormone (TSH) 4.310 uIU/mL (0.358-3.74) Segmented Neutrophils % 68 % (35-66) Band Neutrophils % 2 % (0-9) Lymphocytes % 10 % (24-48) Monocytes % 13 % (0-10) Eosinophils % 7 % (0-5) Platelet Estimate Adequate (ADEQUATE) BUN/Creatinine Ratio 14 (6-20) Albumin/Globulin Ratio 0.6 (1.0-1.7) Triglycerides Level 87 mg/dL (0-150) Cholesterol Level 160 mg/dL (0-200) LDL Cholesterol, Calculated 118 mg/dL (0-100) VLDL Cholesterol, Calculated 17 mg/dL (0-40) Non-HDL Cholesterol Calculated 135 mg/dL (0-129) HDL Cholesterol 25 mg/dL (40-60) Cholesterol/HDL Ratio 6.4 Urine Color Yellow Urine Clarity Clear Urine pH 6.0 Urine Specific [place] <=1.005 Urine Protein Negative mg/dL (NEG-TRACE) Urine Glucose (UA) Negative mg/dL (NEG) Urine Ketones (Stick) Negative mg/dL (NEG) Urine Blood Negative (NEG) Urine Nitrite Negative (NEG) Urine Bilirubin Negative (NEG) Urine Urobilinogen Dipstick 1.0 mg/dL (0.2 mg/dL) Urine Leukocyte Esterase Negative (NEG) Urine RBC 0 /HPF (0-2) Urine WBC Occ /HPF (0-4) Urine Squamous Epithelial Cells Occ /LPF Urine Bacteria 0 /HPF (0-FEW) Test 11/01/18 07:53 White Blood Count 4.4 x10^3/uL (4.0-11.0) Red Blood Count 3.72 x10^6/uL (4.30-5.70) Hemoglobin 13.3 g/dL (13.0-17.5) Hematocrit 38.2 % (39.0-53.0) Mean Corpuscular Volume 103 fL (79-100) Mean Corpuscular Hemoglobin 36 pg (25-35) Mean Corpuscular Hemoglobin Concent 35 g/dL (31-37) Red Cell Distribution Width 17.6 % (11.5-14.5) Platelet Count 122 x10^3/uL (140-400) Neutrophils (%) (Auto) 63 % (31-73) Lymphocytes (%) (Auto) 14 % (24-48) Monocytes (%) (Auto) 17 % (0-9) Eosinophils (%) (Auto) 5 % (0-3) Basophils (%) (Auto) 1 % (0-3) Neutrophils # (Auto) 2.8 x10^3uL (1.8-7.7) Lymphocytes # (Auto) 0.6 x10^3/uL (1.0-4.8) Monocytes # (Auto) 0.7 x10^3/uL (0.0-1.1) Eosinophils # (Auto) 0.2 x10^3/uL (0.0-0.7) Basophils # (Auto) 0.0 x10^3/uL (0.0-0.2) Sodium Level 146 mmol/L (136-145) Potassium Level 3.4 mmol/L (3.5-5.1) Chloride Level 110 mmol/L (98-107) Carbon Dioxide Level 29 mmol/L (21-32) Anion Gap 7 (6-14) Blood Urea Nitrogen 21 mg/dL (8-26) Creatinine 1.6 mg/dL (0.7-1.3) Estimated GFR (Cockcroft-Gault) 42.1 BUN/Creatinine Ratio 13 (6-20) Glucose Level 89 mg/dL (70-99) Calcium Level 8.5 mg/dL (8.5-10.1) Total Bilirubin 3.3 mg/dL (0.2-1.0) Aspartate Amino Transf (AST/SGOT) 71 U/L (15-37) Alanine Aminotransferase (ALT/SGPT) 41 U/L (16-63) Alkaline Phosphatase 153 U/L (46-116) Total Protein 5.2 g/dL (6.4-8.2) Albumin 1.9 g/dL (3.4-5.0) Albumin/Globulin Ratio 0.6 (1.0-1.7) Laboratory Tests Test 10/31/18 13:40 11/01/18 07:53 Urine Color Yellow Urine Clarity Clear Urine pH 6.0 Urine Specific [place] <=1.005 Urine Protein Negative mg/dL (NEG-TRACE) Urine Glucose (UA) Negative mg/dL (NEG) Urine Ketones (Stick) Negative mg/dL (NEG) Urine Blood Negative (NEG) Urine Nitrite Negative (NEG) Urine Bilirubin Negative (NEG) Urine Urobilinogen Dipstick 1.0 mg/dL (0.2 mg/dL) Urine Leukocyte Esterase Negative (NEG) Urine RBC 0 /HPF (0-2) Urine WBC Occ /HPF (0-4) Urine Squamous Epithelial Cells Occ /LPF Urine Bacteria 0 /HPF (0-FEW) White Blood Count 4.4 x10^3/uL (4.0-11.0) Red Blood Count 3.72 x10^6/uL (4.30-5.70) Hemoglobin 13.3 g/dL (13.0-17.5) Hematocrit 38.2 % (39.0-53.0) Mean Corpuscular Volume 103 fL (79-100) Mean Corpuscular Hemoglobin 36 pg (25-35) Mean Corpuscular Hemoglobin Concent 35 g/dL (31-37) Red Cell Distribution Width 17.6 % (11.5-14.5) Platelet Count 122 x10^3/uL (140-400) Neutrophils (%) (Auto) 63 % (31-73) Lymphocytes (%) (Auto) 14 % (24-48) Monocytes (%) (Auto) 17 % (0-9) Eosinophils (%) (Auto) 5 % (0-3) Basophils (%) (Auto) 1 % (0-3) Neutrophils # (Auto) 2.8 x10^3uL (1.8-7.7) Lymphocytes # (Auto) 0.6 x10^3/uL (1.0-4.8) Monocytes # (Auto) 0.7 x10^3/uL (0.0-1.1) Eosinophils # (Auto) 0.2 x10^3/uL (0.0-0.7) Basophils # (Auto) 0.0 x10^3/uL (0.0-0.2) Sodium Level 146 mmol/L (136-145) Potassium Level 3.4 mmol/L (3.5-5.1) Chloride Level 110 mmol/L (98-107) Carbon Dioxide Level 29 mmol/L (21-32) Anion Gap 7 (6-14) Blood Urea Nitrogen 21 mg/dL (8-26) Creatinine 1.6 mg/dL (0.7-1.3) Estimated GFR (Cockcroft-Gault) 42.1 BUN/Creatinine Ratio 13 (6-20) Glucose Level 89 mg/dL (70-99) Calcium Level 8.5 mg/dL (8.5-10.1) Total Bilirubin 3.3 mg/dL (0.2-1.0) Aspartate Amino Transf (AST/SGOT) 71 U/L (15-37) Alanine Aminotransferase (ALT/SGPT) 41 U/L (16-63) Alkaline Phosphatase 153 U/L (46-116) Total Protein 5.2 g/dL (6.4-8.2) Albumin 1.9 g/dL (3.4-5.0) Albumin/Globulin Ratio 0.6 (1.0-1.7) Medications Current Medications Albuterol Sulfate (Ventolin Neb Soln) 2.5 mg PRN Q4HRS PRN NEB FOR ASTHMA; Start 10/30/18 at 14:45 Vitamin D (Vitamin D3) 2,000 unit DAILY PO Last administered on 10/31/18at 08:18; Start 10/30/18 at 15:00 Pantoprazole Sodium (Protonix) 40 mg PRN DAILY PRN PO heartburn; Start 10/30/18 at 14:45 Ursodiol (Actigall) 300 mg DAILY PO Last administered on 10/31/18at 08:17; Start 10/30/18 at 15:00 Ondansetron HCl (Zofran) 4 mg PRN Q6HRS PRN IV NAUSEA/VOMITING; Start 10/30/18 at 14:45 Acetaminophen (Tylenol) 650 mg PRN Q6HRS PRN PO Headaches, Temp > 101.5F; Start 10/30/18 at 14:45 Senna/Docusate Sodium (Senna Plus) 1 tab BID PO Last administered on 10/31/18at 21:43; Start 10/30/18 at 21:00 Lactulose (Lactulose) 20 gm PRN Q12HR PRN PO CONSTIPATION; Start 10/30/18 at 14:45 Heparin Sodium (Porcine) (Heparin Sodium) 5,000 unit Q8HRS SQ Last administered on 11/01/18at 06:00; Start 10/30/18 at 15:00 Furosemide (Lasix) 40 mg TIDAC IVP Last administered on 10/31/18at 17:23; Start 10/30/18 at 16:30 Potassium Chloride (Klor-Con) 20 meq TIDWMEALS PO ; Start 10/30/18 at 17:00; Stop 10/30/18 at 17:00; Status DC Potassium Chloride/Water 100 ml @ 100 mls/hr Q1H IV Last administered on at 20:05; Start 10/30/18 at 15:00; Stop 10/30/18 at 16:59; Status DC Polyethylene Glycol (miraLAX PACKET) 17 gm DAILY PO ; Start 10/30/18 at 15:00 Potassium Chloride (Klor-Con) 20 meq BIDWMEALS PO Last administered on 10/31/18at 17:23; Start 10/30/18 at 17:00 Active Scripts Active Reported Proventil Hfa Inhaler (Albuterol Sulfate) 6.7 Gm Hfa.aer.ad 2 Puff IH PRN Q4HRS PRN Vitamin D3 (Cholecalciferol (Vitamin D3)) 1,000 Unit Tablet 2,000 Unit PO DAILY Ursodiol 300 Mg Capsule 300 Mg PO Vitamin D3 (Cholecalciferol (Vitamin D3)) 5,000 Unit Tablet 5,000 Unit PO DAILY Omeprazole 20 Mg Capsule.dr 20 Mg PO PRN Vitals/I & O Vital Sign - Last 24 Hours 10/31/18 10/31/18 10/31/18 10/31/18 11:00 15:00 17:25 19:35 Temp 97.6 97.7 97.6 97.7 Pulse 77 88 87 Resp 16 16 B/P (MAP) 105/68 (80) 92/55 (67) 96/61 (73) Pulse Ox 92 96 O2 Delivery Room Air Room Air Room Air 10/31/18 10/31/18 11/01/18 11/01/18 19:35 23:45 03:56 07:00 Temp 97.6 97.6 97.8 97.4 97.6 97.6 97.8 97.4 Pulse 79 74 78 79 Resp 19 18 20 18 B/P (MAP) 91/58 (69) 131/111 (118) 102/56 (71) 92/59 (70) Pulse Ox 93 92 93 90 O2 Delivery Room Air Room Air Nasal Cannula Room Air O2 Flow Rate 2.0 11/01/18 08:12 O2 Delivery Room Air Intake and Output 10/31/18 10/31/18 11/01/18 14:59 22:59 06:59 Intake Total 200 ml 200 ml Output Total 1350 ml 1175 ml 350 ml Balance -1150 ml -1175 ml -150 ml BERNARD GRACE MD November 01, 2018 09:49
--- NOTE | 2018-11-01 09:52 | PDOC ---
Objective: Vital Signs: Vital Signs Date Time Temp Pulse Resp B/P (MAP) Pulse Ox O2 Delivery O2 Flow Rate FiO2 11/01/18 08:12 Room Air 11/01/18 07:00 97.4 79 18 92/59 (70) 90 97.4 11/01/18 03:56 2.0 Labs: Laboratory Tests Test 10/31/18 13:40 11/01/18 07:53 Urine Color Yellow Urine Clarity Clear Urine pH 6.0 Urine Specific [place] <=1.005 Urine Protein Negative mg/dL Urine Glucose (UA) Negative mg/dL Urine Ketones (Stick) Negative mg/dL Urine Blood Negative Urine Nitrite Negative Urine Bilirubin Negative Urine Urobilinogen Dipstick 1.0 mg/dL Urine Leukocyte Esterase Negative Urine RBC 0 /HPF Urine WBC Occ /HPF Urine Squamous Epithelial Cells Occ /LPF Urine Bacteria 0 /HPF White Blood Count 4.4 x10^3/uL Red Blood Count 3.72 x10^6/uL Hemoglobin 13.3 g/dL Hematocrit 38.2 % Mean Corpuscular Volume 103 fL Mean Corpuscular Hemoglobin 36 pg Mean Corpuscular Hemoglobin Concent 35 g/dL Red Cell Distribution Width 17.6 % Platelet Count 122 x10^3/uL Neutrophils (%) (Auto) 63 % Lymphocytes (%) (Auto) 14 % Monocytes (%) (Auto) 17 % Eosinophils (%) (Auto) 5 % Basophils (%) (Auto) 1 % Neutrophils # (Auto) 2.8 x10^3uL Lymphocytes # (Auto) 0.6 x10^3/uL Monocytes # (Auto) 0.7 x10^3/uL Eosinophils # (Auto) 0.2 x10^3/uL Basophils # (Auto) 0.0 x10^3/uL Sodium Level 146 mmol/L Potassium Level 3.4 mmol/L Chloride Level 110 mmol/L Carbon Dioxide Level 29 mmol/L Anion Gap 7 Blood Urea Nitrogen 21 mg/dL Creatinine 1.6 mg/dL Estimated GFR (Cockcroft-Gault) 42.1 BUN/Creatinine Ratio 13 Glucose Level 89 mg/dL Calcium Level 8.5 mg/dL Total Bilirubin 3.3 mg/dL Aspartate Amino Transf (AST/SGOT) 71 U/L Alanine Aminotransferase (ALT/SGPT) 41 U/L Alkaline Phosphatase 153 U/L Total Protein 5.2 g/dL Albumin 1.9 g/dL Albumin/Globulin Ratio 0.6 Imaging: MRCP 11/01 pending PE: our of room A/P: BLE edema, ascites Cirrhosis, h/o recurrent choledocholithiasis and CBD stricture, hyperbilirubinemia -- Bili trending down. Will follow-up re: MRCP results. GUILLERMINA JAUREGUI November 01, 2018 09:52
[2018-11-01] MEDS: POTASSIUM CHLORIDE 20 MEQ TABLET.ER. PO SCH (10:02)
[2018-11-01] MEDS: CHOLECALCIFEROL (VITAMIN D3) 1,000 UNIT TABLET PO SCH (10:02)
[2018-11-01] MEDS: URSODIOL 300 MG CAPSULE. PO SCH (10:02)
[2018-11-01] MEDS ORDERED: POTASSIUM CHLORIDE 20 MEQ TABLET.ER. PO ONE (10:30)
--- NOTE | 2018-11-01 10:33 | RAD ---
MRI abdomen without contrast and MRCP: Clinical indications: Recurrent choledocholithiasis. Fluid retention. History of cholecystectomy. Hyperbilirubinemia. Cirrhosis. Technique: T1 and T2 weighted MRI sequences of the abdomen was performed in the axial and coronal planes. In phase and out of phase MRI sequences were performed. Using a single shot heavily T2-weighted fast spin-echo and MIP algorithm, 3-D reconstructed MRCP was generated. COMPARISON: Abdomen ultrasound study October 30, 2018. MRCP dated December 14, 2017. Findings: MRI abdomen: Corrugated liver contour which may be seen with cirrhosis. No hepatic mass is seen. No focal hepatic mass is seen. The spleen is enlarged measuring 14.1 cm in length. There is atrophy of the pancreas. Bilateral renal nodules are seen most likely representing cysts. These are unchanged. The gallbladder surgically absent. No adrenal mass is evident. No focal aneurysmal dilatation of the abdominal aorta is seen. No enlarged abdominal lymphadenopathy is seen. There is moderate amount of ascites present. MRCP: No abnormal dilatation of the intrahepatic or extrahepatic biliary tree is seen. No filling defects are seen within the extrahepatic biliary tree. No stricture is seen. No abnormal dilatation of the pancreatic duct is seen. Impression: 1. Cirrhosis with mild splenomegaly and moderate ascites. No hepatic mass. 2. Unremarkable MRCP. The previously seen common bile duct stone and dilatation of the biliary tree is not evident today. Electronically signed by: Ezio Perez MD (11/01/2018 10:30 AM) [id number]
[2018-11-01 11:00] VITALS: BP 103/64
--- NOTE | 2018-11-01 13:01 | PDOC ---
SUBJECTIVE ROS Stable, wants to go home OBJECTIVE Vital Signs Vital Signs Date Time Temp Pulse Resp B/P (MAP) Pulse Ox O2 Delivery O2 Flow Rate FiO2 11/01/18 11:00 97.7 93 18 103/64 (77) 90 Room Air 97.7 11/01/18 03:56 2.0 I & 0 Intake and Output 11/01/18 06:59 Intake Total 400 ml Output Total 2875 ml Balance -2475 ml Intake Oral 400 ml Output Urine Total 2875 ml PHYSICAL EXAM Physical Exam General: Alert, Oriented X3, Cooperative, No acute distress HEENT: Atraumatic, PERRLA, EOMI, Mucous membr. moist/pink Lungs: Other (Right basilar wheezes) Heart: S1S2, RRR, no gallops, no murmurs Abdomen: Normal bowel sounds, Soft, No tenderness, No hepatosplenomegaly, No masses Extremities: No clubbing, No cyanosis, Normal pulses, No tenderness/swelling, Other (3+ Edema) Skin: No rashes, No breakdown, No significant lesion Neuro: Normal gait, Normal speech, Strength at 5/5 X4 ext, Normal tone, Sensation intact, Cranial nerves 3-12 NL, Reflexes 2+ Psych/Mental Status: Mental status NL, Mood NL DIAGNOSIS/ASSESSMENT Assessment & Plan IBAN- Pre-renal sec to Cardiac/Hepatic Etiology Cirrhosis and ascites on US Improving renal function , E-Lytes stable UA unremarkable , Stable renal function CKD stage 2/3- Baseline Creat during Previous Hospitalization 1.2-1.3 Peaked to 1.6-2.0 CT and MRI show Bilat Renal Simple cysts Hypokalemia- Replace as indicated Cirrhosis, h/o recurrent choledocholithiasis, hyperbilirubinemia GI following, possibly will need paracentesis LE Edema- Sec to cirrhosis Hypoalbuminemia HTN- BP have been on the lower side Not on antihypertensives Cardiac- Preserved Systolic Function EF 60-65%. No significant valvular abnormalities. Dw Patient COMMENT/RELEVANT DATA Meds Current Medications Medications (Trade) Dose Ordered Sig/Hector Start Time Stop Time Status Last Admin Dose Admin Acetaminophen (Tylenol) 650 mg PRN Q6HRS PRN 10/30/18 14:45 Albuterol Sulfate (Ventolin Neb Soln) 2.5 mg PRN Q4HRS PRN 10/30/18 14:45 Furosemide (Lasix) 40 mg TIDAC 10/30/18 16:30 11/01/18 11:30 40 MG Heparin Sodium (Porcine) (Heparin Sodium) 5,000 unit Q8HRS 10/30/18 15:00 11/01/18 06:00 5,000 UNIT Lactulose (Lactulose) 20 gm PRN Q12HR PRN 10/30/18 14:45 Ondansetron HCl (Zofran) 4 mg PRN Q6HRS PRN 10/30/18 14:45 Pantoprazole Sodium (Protonix) 40 mg PRN DAILY PRN 10/30/18 14:45 Polyethylene Glycol (miraLAX PACKET) 17 gm DAILY 10/30/18 15:00 Potassium Chloride/Water 100 ml @ 100 mls/hr Q1H 10/30/18 15:00 10/30/18 16:59 DC 10/30/18 20:05 100 MLS/HR Potassium Chloride (Klor-Con) 20 meq [id number] 11/02/18 08:00 Senna/Docusate Sodium (Senna Plus) 1 tab BID 10/30/18 21:00 10/31/18 21:43 1 TAB Ursodiol (Actigall) 300 mg DAILY 10/30/18 15:00 11/01/18 10:02 300 MG Vitamin D (Vitamin D3) 2,000 unit DAILY 10/30/18 15:00 11/01/18 10:02 2,000 UNIT Lab Laboratory Tests Test 10/31/18 13:40 11/01/18 07:53 Urine Color Yellow Urine Clarity Clear Urine pH 6.0 Urine Specific [place] <=1.005 Urine Protein Negative mg/dL (NEG-TRACE) Urine Glucose (UA) Negative mg/dL (NEG) Urine Ketones (Stick) Negative mg/dL (NEG) Urine Blood Negative (NEG) Urine Nitrite Negative (NEG) Urine Bilirubin Negative (NEG) Urine Urobilinogen Dipstick 1.0 mg/dL (0.2 mg/dL) Urine Leukocyte Esterase Negative (NEG) Urine RBC 0 /HPF (0-2) Urine WBC Occ /HPF (0-4) Urine Squamous Epithelial Cells Occ /LPF Urine Bacteria 0 /HPF (0-FEW) White Blood Count 4.4 x10^3/uL (4.0-11.0) Red Blood Count 3.72 x10^6/uL (4.30-5.70) Hemoglobin 13.3 g/dL (13.0-17.5) Hematocrit 38.2 % (39.0-53.0) Mean Corpuscular Volume 103 fL (79-100) Mean Corpuscular Hemoglobin 36 pg (25-35) Mean Corpuscular Hemoglobin Concent 35 g/dL (31-37) Red Cell Distribution Width 17.6 % (11.5-14.5) Platelet Count 122 x10^3/uL (140-400) Neutrophils (%) (Auto) 63 % (31-73) Lymphocytes (%) (Auto) 14 % (24-48) Monocytes (%) (Auto) 17 % (0-9) Eosinophils (%) (Auto) 5 % (0-3) Basophils (%) (Auto) 1 % (0-3) Neutrophils # (Auto) 2.8 x10^3uL (1.8-7.7) Lymphocytes # (Auto) 0.6 x10^3/uL (1.0-4.8) Monocytes # (Auto) 0.7 x10^3/uL (0.0-1.1) Eosinophils # (Auto) 0.2 x10^3/uL (0.0-0.7) Basophils # (Auto) 0.0 x10^3/uL (0.0-0.2) Sodium Level 146 mmol/L (136-145) Potassium Level 3.4 mmol/L (3.5-5.1) Chloride Level 110 mmol/L (98-107) Carbon Dioxide Level 29 mmol/L (21-32) Anion Gap 7 (6-14) Blood Urea Nitrogen 21 mg/dL (8-26) Creatinine 1.6 mg/dL (0.7-1.3) Estimated GFR (Cockcroft-Gault) 42.1 BUN/Creatinine Ratio 13 (6-20) Glucose Level 89 mg/dL (70-99) Calcium Level 8.5 mg/dL (8.5-10.1) Total Bilirubin 3.3 mg/dL (0.2-1.0) Aspartate Amino Transf (AST/SGOT) 71 U/L (15-37) Alanine Aminotransferase (ALT/SGPT) 41 U/L (16-63) Alkaline Phosphatase 153 U/L (46-116) Total Protein 5.2 g/dL (6.4-8.2) Albumin 1.9 g/dL (3.4-5.0) Albumin/Globulin Ratio 0.6 (1.0-1.7) Results All relevant outside records, renal labs, imaging studies, telemetry/EKG's were reviewed. BARRY SR MD November 01, 2018 13:01
--- NOTE | 2018-11-01 13:48 | PDOC3 ---
Discharge Summary Date of Admission: Oct 30, 2018 Date of Discharge: November 01, 2018 Follow-Up: 3-5 days Admitting Diagnosis comment: DISCHARGE DX PMHx HTN, OA, choledocholithiasis, cholecystectomy, chronic recurrent hyperbilirubinemia s/p ERCP (x3) w/ sphincterotomy, bilateral knee surgeries, liver biopsy x 2, expl lap w/ appendectomy who presented to cardiology for echocardiogram REVIEWED and noted he has gained 12# in the past week and has been more short of breath. He was 243# on his home scale last monday and was 255# on his home scale 10/29 Cirrhosis, h/o recurrent choledocholithiasis, hyperbilirubinemia, macrocytosis, IBAN HYPOKALEMIA ON REPLACEMENT GI following, // paracentesis Cirrhotic morphology of liver. Large amount of ascites is seen. mrcp today 33 MIN PT EXAM, D/C PLANNING CHART REVIEW, > 50% OF TIME SPENT WITH EXAM, CHART REVIEW, PT CARE COORDINATION History of Present Illness History of Present Illness VTE Prophylaxis Ordered VTE Prophylaxis Devices: Yes VTE Pharmacological Prophylaxi: Yes DISCHARGE DX Assessment/Plan A/P: LE edema - with 12# weight gain, WONG, and orthopnea this is an acute diastolic CHF exacerbation. Lasix 40mg IV TID. Consult cardiology IBAN - likely vasomotor vs cardiorenal syndrome. Will diurese based on his LE edema. If cr increases over the next 24 hours will need to consult nephrology Hypokalemia - will replace with his diuresis and check mag level HTN - cont home meds, hold off on ELIAZAR or ARB at this time with Cr elevation OA - tylenol for pain Transaminitis - possibly residual from recent ERCP, will consult GI H/o choledocholithiasis - s/p cholecystectomy, chronic recurrent hyperbil irubinemia s/p ERCP (x3) w/ sphincterotomy - was to have CT abdomen tomorrow, will consult GI with his bilirubin up to 4 now Moderate protein calorie malnutrition - he appears cachectic despite his weight gain FEN - Cardiac diet PPX - Heparin TID FULL CODE Inpatient CVC for acute diastolic CHF, likely 2 midnight admission MRCP TODAY Vitals Vitals Vital Signs Date Time Temp Pulse Resp B/P (MAP) Pulse Ox O2 Delivery O2 Flow Rate FiO2 11/01/18 08:12 Room Air 11/01/18 07:00 97.4 79 18 92/59 (70) 90 97.4 11/01/18 03:56 2.0 Physical Exam General: Alert, Oriented X3, Cooperative, No acute distress Heart: Regular rate, Normal S1, Normal S2, No murmurs Lungs: Clear Abdomen: Normal bowel sounds, Soft, Other (ascites LARGE) Extremities: No cyanosis, Other (Significant bilateral LE edema 3 PLUS) Skin: No significant lesion Brief Hospital Course Mr. Cho is a 78 old [sex] who presented with [ CHF] CONDITION AT DISCHARGE: Improved Discharge Medications Current Medications Albuterol Sulfate (Ventolin Neb Soln) 2.5 mg PRN Q4HRS PRN NEB FOR ASTHMA; Start 10/30/18 at 14:45 Vitamin D (Vitamin D3) 2,000 unit DAILY PO Last administered on 11/01/18at 10:02; Start 10/30/18 at 15:00 Pantoprazole Sodium (Protonix) 40 mg PRN DAILY PRN PO heartburn; Start 10/30/18 at 14:45 Ursodiol (Actigall) 300 mg DAILY PO Last administered on 11/01/18at 10:02; Start 10/30/18 at 15:00 Ondansetron HCl (Zofran) 4 mg PRN Q6HRS PRN IV NAUSEA/VOMITING; Start 10/30/18 at 14:45 Acetaminophen (Tylenol) 650 mg PRN Q6HRS PRN PO Headaches, Temp > 101.5F; Start 10/30/18 at 14:45 Senna/Docusate Sodium (Senna Plus) 1 tab BID PO Last administered on 10/31/18at 21:43; Start 10/30/18 at 21:00 Lactulose (Lactulose) 20 gm PRN Q12HR PRN PO CONSTIPATION; Start 10/30/18 at 14:45 Heparin Sodium (Porcine) (Heparin Sodium) 5,000 unit Q8HRS SQ Last administered on 11/01/18at 06:00; Start 10/30/18 at 15:00 Furosemide (Lasix) 40 mg TIDAC IVP Last administered on 11/01/18at 11:30; Start 10/30/18 at 16:30 Potassium Chloride (Klor-Con) 20 meq TIDWMEALS PO ; Start 10/30/18 at 17:00; Stop 10/30/18 at 17:00; Status DC Potassium Chloride/Water 100 ml @ 100 mls/hr Q1H IV Last administered on 10/30/18at 20:05; Start 10/30/18 at 15:00; Stop 10/30/18 at 16:59; Status DC Polyethylene Glycol (miraLAX PACKET) 17 gm DAILY PO ; Start 10/30/18 at 15:00 Potassium Chloride (Klor-Con) 20 meq BIDWMEALS PO Last administered on 11/01/18at 10:02; Start 10/30/18 at 17:00 Potassium Chloride (Klor-Con) 40 meq 1X ONCE PO Last administered on 11/01/18at 11:30; Start 11/01/18 at 10:30; Stop 11/01/18 at 10:31; Status DC Potassium Chloride (Klor-Con) 20 meq DAILYWBKFT PO ; Start 11/02/18 at 08:00 Active Scripts Active Reported Proventil Hfa Inhaler (Albuterol Sulfate) 6.7 Gm Hfa.aer.ad 2 Puff IH PRN Q4HRS PRN Vitamin D3 (Cholecalciferol (Vitamin D3)) 1,000 Unit Tablet 2,000 Unit PO DAILY Ursodiol 300 Mg Capsule 300 Mg PO Vitamin D3 (Cholecalciferol (Vitamin D3)) 5,000 Unit Tablet 5,000 Unit PO DAILY Omeprazole 20 Mg Capsule.dr 20 Mg PO PRN Vital Signs Vital Signs Date Time Temp Pulse Resp B/P (MAP) Pulse Ox O2 Delivery O2 Flow Rate FiO2 11/01/18 11:00 97.7 93 18 103/64 (77) 90 Room Air 97.7 11/01/18 03:56 2.0 Labs Laboratory Tests Test 10/31/18 08:05 10/31/18 08:06 10/31/18 13:40 11/01/18 07:53 White Blood Count 4.4 x10^3/uL (4.0-11.0) 4.4 x10^3/uL (4.0-11.0) Red Blood Count 3.94 x10^6/uL (4.30-5.70) 3.72 x10^6/uL (4.30-5.70) Hemoglobin 13.8 g/dL (13.0-17.5) 13.3 g/dL (13.0-17.5) Hematocrit 40.6 % (39.0-53.0) 38.2 % (39.0-53.0) Mean Corpuscular Volume 103 fL (79-100) 103 fL (79-100) Mean Corpuscular Hemoglobin 35 pg (25-35) 36 pg (25-35) Mean Corpuscular Hemoglobin Concent 34 g/dL (31-37) 35 g/dL (31-37) Red Cell Distribution Width 17.6 % (11.5-14.5) 17.6 % (11.5-14.5) Platelet Count 124 x10^3/uL (140-400) 122 x10^3/uL (140-400) Neutrophils (%) (Auto) 63 % (31-73) 63 % (31-73) Lymphocytes (%) (Auto) 12 % (24-48) 14 % (24-48) Monocytes (%) (Auto) 18 % (0-9) 17 % (0-9) Eosinophils (%) (Auto) 7 % (0-3) 5 % (0-3) Basophils (%) (Auto) 1 % (0-3) 1 % (0-3) Neutrophils # (Auto) 2.8 x10^3uL (1.8-7.7) 2.8 x10^3uL (1.8-7.7) Lymphocytes # (Auto) 0.5 x10^3/uL (1.0-4.8) 0.6 x10^3/uL (1.0-4.8) Monocytes # (Auto) 0.8 x10^3/uL (0.0-1.1) 0.7 x10^3/uL (0.0-1.1) Eosinophils # (Auto) 0.3 x10^3/uL (0.0-0.7) 0.2 x10^3/uL (0.0-0.7) Basophils # (Auto) 0.0 x10^3/uL (0.0-0.2) 0.0 x10^3/uL (0.0-0.2) Segmented Neutrophils % 68 % (35-66) Band Neutrophils % 2 % (0-9) Lymphocytes % 10 % (24-48) Monocytes % 13 % (0-10) Eosinophils % 7 % (0-5) Platelet Estimate Adequate (ADEQUATE) Sodium Level 146 mmol/L (136-145) 146 mmol/L (136-145) Potassium Level 3.4 mmol/L (3.5-5.1) 3.4 mmol/L (3.5-5.1) Chloride Level 109 mmol/L (98-107) 110 mmol/L (98-107) Carbon Dioxide Level 28 mmol/L (21-32) 29 mmol/L (21-32) Anion Gap 9 (6-14) 7 (6-14) Blood Urea Nitrogen 23 mg/dL (8-26) 21 mg/dL (8-26) Creatinine 1.6 mg/dL (0.7-1.3) 1.6 mg/dL (0.7-1.3) Estimated GFR (Cockcroft-Gault) 42.1 42.1 BUN/Creatinine Ratio 14 (6-20) 13 (6-20) Glucose Level 93 mg/dL (70-99) 89 mg/dL (70-99) Calcium Level 8.8 mg/dL (8.5-10.1) 8.5 mg/dL (8.5-10.1) Total Bilirubin 3.8 mg/dL (0.2-1.0) 3.3 mg/dL (0.2-1.0) Aspartate Amino Transf (AST/SGOT) 80 U/L (15-37) 71 U/L (15-37) Alanine Aminotransferase (ALT/SGPT) 48 U/L (16-63) 41 U/L (16-63) Alkaline Phosphatase 173 U/L (46-116) 153 U/L (46-116) Total Protein 5.7 g/dL (6.4-8.2) 5.2 g/dL (6.4-8.2) Albumin 2.1 g/dL (3.4-5.0) 1.9 g/dL (3.4-5.0) Albumin/Globulin Ratio 0.6 (1.0-1.7) 0.6 (1.0-1.7) Triglycerides Level 87 mg/dL (0-150) Cholesterol Level 160 mg/dL (0-200) LDL Cholesterol, Calculated 118 mg/dL (0-100) VLDL Cholesterol, Calculated 17 mg/dL (0-40) Non-HDL Cholesterol Calculated 135 mg/dL (0-129) HDL Cholesterol 25 mg/dL (40-60) Cholesterol/HDL Ratio 6.4 Urine Color Yellow Urine Clarity Clear Urine pH 6.0 Urine Specific [place] <=1.005 Urine Protein Negative mg/dL (NEG-TRACE) Urine Glucose (UA) Negative mg/dL (NEG) Urine Ketones (Stick) Negative mg/dL (NEG) Urine Blood Negative (NEG) Urine Nitrite Negative (NEG) Urine Bilirubin Negative (NEG) Urine Urobilinogen Dipstick 1.0 mg/dL (0.2 mg/dL) Urine Leukocyte Esterase Negative (NEG) Urine RBC 0 /HPF (0-2) Urine WBC Occ /HPF (0-4) Urine Squamous Epithelial Cells Occ /LPF Urine Bacteria 0 /HPF (0-FEW) Laboratory Tests Test 11/01/18 07:53 White Blood Count 4.4 x10^3/uL (4.0-11.0) Red Blood Count 3.72 x10^6/uL (4.30-5.70) Hemoglobin 13.3 g/dL (13.0-17.5) Hematocrit 38.2 % (39.0-53.0) Mean Corpuscular Volume 103 fL (79-100) Mean Corpuscular Hemoglobin 36 pg (25-35) Mean Corpuscular Hemoglobin Concent 35 g/dL (31-37) Red Cell Distribution Width 17.6 % (11.5-14.5) Platelet Count 122 x10^3/uL (140-400) Neutrophils (%) (Auto) 63 % (31-73) Lymphocytes (%) (Auto) 14 % (24-48) Monocytes (%) (Auto) 17 % (0-9) Eosinophils (%) (Auto) 5 % (0-3) Basophils (%) (Auto) 1 % (0-3) Neutrophils # (Auto) 2.8 x10^3uL (1.8-7.7) Lymphocytes # (Auto) 0.6 x10^3/uL (1.0-4.8) Monocytes # (Auto) 0.7 x10^3/uL (0.0-1.1) Eosinophils # (Auto) 0.2 x10^3/uL (0.0-0.7) Basophils # (Auto) 0.0 x10^3/uL (0.0-0.2) Sodium Level 146 mmol/L (136-145) Potassium Level 3.4 mmol/L (3.5-5.1) Chloride Level 110 mmol/L (98-107) Carbon Dioxide Level 29 mmol/L (21-32) Anion Gap 7 (6-14) Blood Urea Nitrogen 21 mg/dL (8-26) Creatinine 1.6 mg/dL (0.7-1.3) Estimated GFR (Cockcroft-Gault) 42.1 BUN/Creatinine Ratio 13 (6-20) Glucose Level 89 mg/dL (70-99) Calcium Level 8.5 mg/dL (8.5-10.1) Total Bilirubin 3.3 mg/dL (0.2-1.0) Aspartate Amino Transf (AST/SGOT) 71 U/L (15-37) Alanine Aminotransferase (ALT/SGPT) 41 U/L (16-63) Alkaline Phosphatase 153 U/L (46-116) Total Protein 5.2 g/dL (6.4-8.2) Albumin 1.9 g/dL (3.4-5.0) Albumin/Globulin Ratio 0.6 (1.0-1.7) Allergies Allergies Coded Allergies Type Severity Reaction Last Updated Verified No Known Drug Allergies 10/12/18 No Disposition/Orders: D/C to Home Patient Instructions D/C PLANNING 33 MIN BERNARD GRACE MD November 01, 2018 13:47
[2018-11-01] MEDS ORDERED: LACT20SO PO (13:50)
[2018-11-01] MEDS ORDERED: POLY17PO28 PO (13:50)
[2018-11-01] MEDS ORDERED: FURO-68 PO (13:50)
[2018-11-01] MEDS ORDERED: POTA20TA4 PO (13:50)
--- NOTE | 2018-11-01 13:51 | DISCH ---
DISCHARGE INSTRUCTIONS Condition on Discharge Condition on Discharge: Stable Activity After Discharge Activity Instructions for Disc: No restrictions, Activity as tolerated Lifting Instructions after Dis: No heavy lifting Exercise Instruction after Dis: Walk 10 min, 3 x per day Driving Instructions after Dis: Do not drive Weight Bearing Status after Di: Full weight bearing Diet after Discharge Diet after Discharge: Cardiac, Regular, Low Sodium 2 gm Diet Texture: Regular Liquid Texture: Thin Liquid Swallowing Supervision: None needed Wound Incision Care Wound/Incision Care: No wound care needed Checks after Discharge Checks after discharge: Check blood press - daily Contacting the DRChioma after DC Call your doctor for: If your condition worsens Treatment/Equipment after DC Adaptive Equipment Issued: None BERNARD GRACE MD November 01, 2018 13:51
--- NOTE | 2018-11-01 14:55 | NUR ---
Discharge Note: KATHRYN RON Discharge instructions and discharge home medications reviewed with Patient and a copy given. All questions have been answered and understanding verbalized. The following instructions and handouts were given: peripheral edema, edema, CHF, pleural effusion, ascites Discontinued lines and drains: Peripheral IV intact. Patient discharged to Home or Self Care with Self via Wheelchair
[2018-11-02] MEDS ORDERED: POTASSIUM CHLORIDE 20 MEQ TABLET.ER. PO SCH (08:00)
--- NOTE | 2018-11-05 10:41 | RAD ---
MR#: [id number] Date of Study: 10/31/2018 Ordering Physician: KARIME ELISE, Referring Physician: OKSANA NOLASCO, Tech: Elie Dasilva MBA, RDMS, RVT, RDCS, RTR APPROVED REPORT Patient Location : IN-PATIENT Indications Lower Extremity Edema : Bilateral Greater Saphenous Veins (GSV) Significant venous relux noted in the LEFT GSV at the following levels : Superficial Femoral Junction , Proximal Thigh, Mid Thigh, , Distal Thigh, Proximal Calf, Mid Calf, Distal Calf Lesser Saphenous Veins (LSV) Significant venous reflux is noted in the Left LSV. Findings Limited grayscale images of the saphenofemoral junctions do not reveal any obvious evidence of thromb us. The right great saphenous vein measures 5.1 mm and does not reflux. The left great saphenous vein measures 6.9 mm and has a maximum reflux time of 3.5 seconds. The right lesser saphenous vein does not reflux. The left lesser saphenous vein measures approximately 5 mm and has a maximum reflux time of 2.2 secon ds. Critical Notification Critical Value: No <Conclusion> 1. Left greater and lesser saphenous vein reflux as noted above. Signed by : Shahzad Ferreira, Electronically Approved : 11/05/2018 10:41:15
== END 2018-11-01 15:00 | disposition home or self-care (01) | DRG 682 ==
LOC: 2 SOUTH 12:00
PROVIDERS: ADMIT Internal Medicine; ATTEND Internal Medicine
DX: N17.0 Acute kidney failure with tubular necrosis (principal); I50.33 Acute on chronic diastolic (congestive) heart failure; I13.0 Hypertensive heart and chronic kidney disease with heart failure and stage 1 through stage 4 chronic kidney disease, or unspecified chronic kidney disease; E44.0 Moderate protein-calorie malnutrition; K80.31 Calculus of bile duct with cholangitis, unspecified, with obstruction; R18.8 Other ascites; R64 Cachexia; K57.90 Diverticulosis of intestine, part unspecified, without perforation or abscess without bleeding; E03.9 Hypothyroidism, unspecified; M19.90 Unspecified osteoarthritis, unspecified site; E87.6 Hypokalemia; K21.9 Gastro-esophageal reflux disease without esophagitis; K74.60 Unspecified cirrhosis of liver; K76.0 Fatty (change of) liver, not elsewhere classified; N18.9 Chronic kidney disease, unspecified; N28.1 Cyst of kidney, acquired; Z82.49 Family history of ischemic heart disease and other diseases of the circulatory system; Z90.49 Acquired absence of other specified parts of digestive tract; Z68.30 Body mass index [BMI] 30.0-30.9, adult; R74.0 Nonspecific elevation of levels of transaminase and lactic acid dehydrogenase [LDH]
CPT/HCPCS: 36415; 71045; 74181; 76705; 80048; 80053; 80061; 80076; 81001; 83036; 83735; 83880; 84443; 84484; 85007; 85025; 85610; 85730; 93005; 93306; 93970; J1644; J1940; J3480

== ENCOUNTER → 2018-10-30 | Outpatient (CLI) | payer MEDICARE, BC ==
[2018-10-12 12:25] VITALS: BP 101/60
[~2018-10-30] MED LIST changes: -GLUCAGON,HUMAN RECOMBINANT 1 MG/ML VIAL. IV ONE; -IOHEXOL 300 MG/ML 100ML VIAL. IV ONE; -IOHEXOL 300 MG/ML 100ML VIAL. ONE; -IV RINGERS,LACTATED 1000ML 1,000 ML IV SCH
--- NOTE | 2018-10-30 11:35 | CARD ---
MR#: [id number] Date of Study: 10/30/2018 Ordering Physician: EDUIN FLORES, Referring Physician: EDUIN FLORES, Tech: Deanne Krishnamurthy TAPAN APPROVED REPORT EXAM: Two-dimensional and M-mode echocardiogram with Doppler and color Doppler. Other Information Quality : Technically Limited Technically limited study due to body habitus. INDICATION Dyspnea Peripheral Edema 2D DIMENSIONS Left Atrium(2D)3.3 (1.6-4.0cm)IVSd0.6 (0.7-1.1cm) Aortic Root(2D)3.0 (2.0-3.7cm)LVDd3.5 (3.9-5.9cm) LVOT Diameter2.0 (1.8-2.4cm)PWd0.7 (0.7-1.1cm) LVDs2.2 (2.5-4.0cm)FS (%) 35.6 % SV33.0 mlLVEF(%)60.0 (>50%) Aortic Valve AoV Peak Paresh.168.1cm/sAoV VTI27.5cm AO Peak GR.11.3mmHgLVOT Peak Paresh.113.2cm/s AO Mean GR.5mmHgAVA (VMAX)2.04cm2 JHONNY (VTI)2.40cm2 Mitral Valve MV E Jnwkfrla71.6cm/sMV DECEL [id number] MV A Rmlkgquf526.2cm/sE/A Ratio0.8 Tricuspid Valve TR P. Lgmunfvc558eu/sRAP [id number] TR Peak Gr.90drPeUPYZ91aoPc Pulmonary Vein S1 Ujlfvgnt85.2cm/sD2 Punyllsp53.8cm/s LEFT VENTRICLE The left ventricle is normal size. There is normal left ventricular wall thickness. The left ventricu lar systolic function is normal. The Ejection Fraction is 60-65%. There is normal LV segmental wall m otion. Transmitral Doppler flow pattern is Grade I-abnormal relaxation pattern. RIGHT VENTRICLE The right ventricle is normal size. The right ventricular systolic function is normal. ATRIA The left atrium size is normal. The right atrium size is normal. The interatrial septum is intact wit h no evidence for an atrial septal defect or patent foramen ovale as noted on 2-D or Doppler imaging. AORTIC VALVE The aortic valve is calcified but opens well. Doppler and Color Flow revealed no significant aortic r egurgitation. There is no significant aortic valvular stenosis. MITRAL VALVE The mitral valve is normal in structure and function. There is no evidence of mitral valve prolapse. There is no mitral valve stenosis. Doppler and Color Flow revealed no mitral valve regurgitation note d. TRICUSPID VALVE The tricuspid valve is normal in structure and function. Doppler and Color Flow revealed no tricuspid valve regurgitation noted. There is no tricuspid valve stenosis. PULMONIC VALVE The pulmonic valve is not well visualized. GREAT VESSELS The aortic root is normal in size. The ascending aorta is not well seen. The IVC was not visualized. PERICARDIAL EFFUSION There is large pleural effusion. There is no evidence of significant pericardial effusion. Critical Notification Critical Value: No <Conclusion> The left ventricular systolic function is normal. The Ejection Fraction is 60-65%. There is normal LV segmental wall motion. Transmitral Doppler flow pattern is Grade I-abnormal relaxation pattern. No significant valvular abnormalities. There is no evidence of significant pericardial effusion. Signed by : Sohan Woods, Electronically Approved : 10/30/2018 11:08:14
== END | disposition home or self-care (01) ==
LOC: ECHO 09:52
PROVIDERS: ATTEND Internal Medicine Cardiovascular Disease
DX: R06.02 Shortness of breath (principal); R06.00 Dyspnea, unspecified; R60.0 Localized edema
CPT/HCPCS: 93306

== ENCOUNTER → 2020-06-08 | Outpatient (CLI) | payer MEDICARE, BC ==
[~2020-06-08] MED LIST changes: -ALBU2.5V8 IH; +FURO-68 PO; +LACT20SO PO; -OMEP20CA10 PO; +OMEP20CA16 PO; -PANT40TA5 PO; +PANT40TA77 PO; +POLY17PO28 PO; -POTA10TA12 PO; +POTA20TA4 PO; +POTASSIUM CHLO10 ME1 PO; +PROVENTIL HFA6.7 GM IH; -RISP0.5T3 PO; +RISP0.5T62 PO; +SENN-182 PO; -SENN-80 PO
--- NOTE | 2020-06-08 14:10 | RAD ---
INDICATION: Reason: jaundice. elevated LFT / Spl. Instructions: / History: COMPARISON: October 2018 TECHNIQUE: Multiplanar, multisequence MRI images are obtained of the abdomen including three-dimensional MRCP images. FINDINGS: Multiple T2 hyperintense lesions at the bilateral kidneys measuring up to 24 mm on the left and 29 mm on the right which is commonly secondary to cyst formation. Spleen is prominent in size. Scoliotic curvature the spine with degenerative changes as well as multilevel central canal and neural foraminal stenosis including within lumbar spine with portion this appearing severe in nature but not formally evaluated on this exam. Abdominal aorta is not aneurysmal. No dilated loops of bowel in the upper abdomen to suggest obstruction. Colonic diverticulosis. No hydronephrosis. Previously seen free fluid is no longer seen. The common bile duct is not dilated. There is some prominence of the intrahepatic bile ducts including within the left lobe measuring up to about 10 mm. Common bile duct diameter is approximately 8 mm. No definite well-defined filling defect within the common bile duct. 5 mm T2 hyperintense lesion within the pancreatic head region. Limited assessment for a liver mass secondary to lack of intravenous contrast. IMPRESSION: * There is some distention of the intrahepatic bile ducts most prominent in the left lobe without evidence of common bile duct stone. * Limited assessment for liver lesion given lack of intravenous contrast. * T2 hyperintense lesions of the kidneys could be from cyst formation. * Tiny T2 hyperintense lesion within the pancreas. Most common causes would be a small pseudocyst or intraductal papillary mucinous neoplasm. Electronically signed by: Brando Aceves MD (06/08/2020 2:08 PM) [id number]
== END ==
LOC: MRI 08:56
PROVIDERS: ATTEND Internal Medicine Gastroenterology
DX: K57.30 Diverticulosis of large intestine without perforation or abscess without bleeding (principal); R17 Unspecified jaundice; R94.5 Abnormal results of liver function studies; M47.816 Spondylosis without myelopathy or radiculopathy, lumbar region; M48.061 Spinal stenosis, lumbar region without neurogenic claudication
CPT/HCPCS: 74181

== ENCOUNTER 2021-10-14 00:50 | Inpatient (IN) | payer MEDICARE, BC ==
[~2021-10-14] VITALS: Ht 198.1 cm; Wt 101.8 kg
[~2021-10-14 00:50] MED LIST changes: +CHOL5000 PO; +CYCL10TA19 PO; +HYDR-2765 PO; +LACT1CAP6 PO; +MIRT-7 PO; -MIRT15TA3 PO; +MULT-766 PO; +OLAN5TAB67 PO; -OLAN5TAB9 PO; +OXYC5CAP PO; +PANT20TA2 PO; -POLY17PO28 PO; +POLY17PO52 PO; +POTA-121 PO; +POTA-163 PO; -POTA20TA4 PO; +SPIR100T4 PO; +SPIR25TA PO; +TORS20TA2 PO; +URSO500T9 PO
[2021-10-14 01:27] VITALS: BP 129/93
[2021-10-14] MEDS ORDERED: RIFA550T4 PO (06:29)
[2021-10-14] MEDS ORDERED: POTA-121 PO (06:29)
[2021-10-14] MEDS ORDERED: SPIR100T4 PO (06:29)
[2021-10-14] MEDS ORDERED: URSO300C26 PO (06:29)
[2021-10-14] MEDS ORDERED: OMEP20CA16 PO (06:29)
[2021-10-14] MEDS ORDERED: TORS20TA2 PO (06:31)
[2021-10-14 07:00] VITALS: BP 89/45
[2021-10-14 10:33] VITALS: BP 93/51
[2021-10-14] MEDS: TORSEMIDE 20 MG TABLET. PO SCH ×2 (11:00→20:53)
[2021-10-14] MEDS: DOCUSATE SODIUM 100 MG CAPSULE. PO SCH ×3 (11:00→21:00)
[2021-10-14] MEDS: SPIRONOLACTONE 25 MG TABLET PO SCH (11:00)
[2021-10-14] MEDS ORDERED: URSODIOL 300 MG CAPSULE. PO SCH (11:00)
--- NOTE | 2021-10-14 11:14 | HP ---
DATE OF SERVICE: 10/14/2021 ADMIT DATE: 10/14/2021 HISTORY OF PRESENT ILLNESS: The patient is an 81-year-old male patient who presented to the Emergency Room of [facility] with a complaint of being really tired, some shortness of breath. His heart is fast. He apparently sleeps all day. He is so tired even to take his medication or get up and move around. His son stated that this is how he behaves when he is going into hepatic encephalopathy. The patient denied any nausea or vomiting. Denied any hematemesis, melena or hematochezia. Denied any change in his medication. He normally follows with his primary physician, Dr. Malvin Best and Dr. Arias for his liver failure. He was extensively investigated in the Emergency Room with lab work and imaging studies. His lab work showed that he has thrombocytopenia and likely microcytic anemia. His prothrombin time was 12.3, INR 1.2, APTT was 25 and D-dimer was 2.06. His chemistry showed that he has also chronic kidney disease. He is jaundiced with a bilirubin 3, slightly elevated liver enzymes and serum lipase was normal. Total protein 6.1, albumin was 2.5. His ammonia was only 51. His chest x-ray showed there is no effusion, no confluent infiltrate and the heart size is normal. The patient was transferred to [facility] for hepatic encephalopathy, severe fatigue and generalized weakness, acute on chronic kidney injury, thrombocytopenia, elevated liver enzyme. He apparently was treated with IV fluid as well as lactulose. PAST MEDICAL HISTORY: Significant for hypertension, chronic recurrent hyperbilirubinemia, choledocholithiasis status post ERCP x 3 with sphincterectomy. He has had liver biopsies done x 2. He is also known to have acute diastolic congestive heart failure, episode of aspiration pneumonia and has had episodes of severe hepatic encephalopathy. PAST SURGICAL HISTORY: Significant for cholecystectomy, ERCP x 3 and sphincterotomy. He has had bilateral total knee arthroplasty, liver biopsy x 3, exploratory laparotomy with appendectomy. ALLERGIES: He has no known drug allergies. FAMILY HISTORY: Positive for hypertension. SOCIAL HISTORY: Lives with his son. He continues to smoke. Drinks alcohol occasionally. Does not use any drugs. He is retired. MEDICATIONS: He is currently on the following medications: He is on rifaximin 550 mg p.o. b.i.d., spironolactone 100 mg once a day, lactulose 20 grams with 30 mL 3 times a day, potassium chloride 20 mEq twice a day, furosemide 20 mg twice a day, Colace 100 mg twice a day, ursodiol 300 mg twice a day, omeprazole 20 mg once a day, cholecalciferol/vitamin D3 125 mcg capsule once a day and multivitamin 1 tablet once a day. PHYSICAL EXAMINATION: GENERAL: On arrival to the Emergency Room, the patient looked pale, jaundiced, but not cyanosed. No lymphadenopathy, no thyromegaly, no jugular venous distention. No limb edema. VITAL SIGNS: His heart rate was 88, blood pressure was 130/73, temperature was 98.2, respiratory rate was 16 and oxygen saturation was 98%. HEAD, EYES, EARS, NOSE, AND THROAT: Normocephalic, atraumatic. NECK: Supple. HEART: Showed normal first and second heart sounds. No gallop, rub or murmur. CHEST: Clear to auscultation, no crepitation or rhonchi. ABDOMEN: Distended, soft, nontender. There is no guarding or rigidity. No organomegaly. All hernial orifice intact. Bowel sounds normal. NEUROLOGIC: He was awake, alert, responding appropriately. All his cranial nerves are intact. He moves extremities without difficulty. He is able to ambulate without assistance or assistive devices. He has also used walker. LABORATORY DATA: On arrival to the Emergency Room showed a white cell count 5.4, hemoglobin 12.8, hematocrit 38, MCV 105 and platelet count of 80,000 with a manual differential shows 67% polymorphs, 9% lymphocytes, 14% monocytes, 9% eosinophils. Serum sodium 143, potassium 4.4, chloride 111, bicarbonate 21, anion gap of 11, BUN 32, creatinine 1.9. Estimated GFR was 34 mL per minute. His glucose 108, calcium was 9.3, magnesium was 2.4, total bilirubin 3, direct bilirubin was 0.9. AST, ALT, alkaline phosphatase slightly elevated. His serum ammonia was 51. CK was 106. Troponin I high sensitivity was 13, C-reactive protein was 6, beta natriuretic peptide was 282, total protein 6.1, albumin 2.5 and serum lipase was 294. His prothrombin time was 12.3, INR 1.2, APTT was 25 and D-dimer was 2.06. Blood alcohol level was less than 10. His influenza A and B were negative and coronavirus by rapid antigen testing was negative. ASSESSMENT AND PLAN: In summary, this is an 81-year-old male patient known to have liver disease and had episodes of hepatic encephalopathy, who was admitted with extreme fatigue, complaint of shortness of breath and also what seems to be tachycardia. Although he denied any chest pain, clinical exam showed he is jaundiced. He also has left lower extremity seems to be more swollen than the right and he has also D-dimer was elevated. My plan is to reconcile all his medication. I will arrange for him to have venous Doppler ultrasound of the left lower extremity and I will consult the Gastroenterology for evaluation and treatment. JORDAN/TIA DR: Liz TID: [id number]
--- NOTE | 2021-10-14 11:16 | PDOC2 ---
GUILLERMINA JAUREGUI 10/14/21 1116: GI CONSULT Date of Service: DATE: 10/14/21 TIME: 11:03 Reason For Consult: weakness, hepatic encephalopathy HPI: HPI: 81 y/o male sent from [facility] where he was evaluated for weakness and fatigue. At [facility]: WBC 5.4, Hgb 12.8, MCV 105, plt 80, INR 1.2, D-dimer 2.06, BUN 32, Cr 1.9, bili 3, AST 41, ALT 30, Alk Phos 184, BNP 282, CK 106, lipase 294, ammonia 51, rapid COVID negative. Med list: Xifaxan BID, lactulose PRN, Cheri BID, spironolactone 100mg QD, Torsemide 20mg QD, omeprazole 20mg QD, oxycodone. I don't believe any imaging done? At least not in records I can view. He says he slept all day yesterday (lives w/ son) and knew that wasn't right. Better today. Otherwise no GI-complaints. Stooling twice daily w/ lactulose BID, and says compliant w/ other meds. Diuretics make him pee a lot and lactulose isn't pleasant. We've seen him many times. From past encounters: ERCPs in 2014 (sphincterotomy and stone extraction) and 2015. S/p cholecystectomy. H/o recurrent sepsis and hyperbilirubinemia. H/o cirrhosis. Colonoscopy in 2016 which showed diverticulosis, then expl lap w/ Dr. Huggins w/ appendectomy and liver biopsy (portal and periportal fibrosis, chronic bile flow impairment, onion-skinning on path). Cholangitis in 05/2017 - had ERCP w/ dilation of CBD stricture, stone extraction, stent placement/replacement. ERCP 2018 for recurrent choledocholithiasis: prior sphincterotomy open, major papilla flat/normal, stone removed via balloon extraction, biliary tree swept. Abd MRI/MRCP 06/2020 for jaundice/elevated LFTs: some distention of the intrahepatic bile ducts most prominent in the left lobe w/o evidence of CBD stone, limited assessment for liver lesion (no contrast), kidney lesions (possible cyst), lesion within pancreas (pseudocyst vs IPMN). EUS by Dr. Franklin @ [facility] in 07/2020 showed Grade II varices in lower esophagus, cystic lesion in pancreatic head (appearance c/w branched IPMN - no follow-up recommended), thrombus visualized in portal vein, and moderate-severe chronic pancreatitis. AFP normal 10/2020. Low B12 in 2018, normal in 2020. PMH: PMH: see HPI HTN, CKD, OA, cellulitis bilateral knee surgeries FH: Family History: No pertinent hx Social History: ALCOHOL: occassional ROS: GEN: +fatigue HEENT: Denies blurred vision, sore throat CV: Denies chest pain RESP: Denies shortness of air, cough GI: Per HPI : Denies hematuria, dysuria ENDO: Denies weight changes NEURO: Denies confusion, dizziness MSK: +weakness SKIN: Denies jaundice, pruritus Vitals: Vitals: Vital Signs Date Time Temp Pulse Resp B/P (MAP) Pulse Ox O2 Delivery O2 Flow Rate FiO2 10/14/21 10:33 97.8 71 18 93/51 (65) 98 Room Air 97.8 Labs: Labs: see HPI Allergies: Coded Allergies: No Known Drug Allergies (Unverified , 10/12/18) PE: GEN: NAD HEENT: Atraumatic, PERRL LUNGS: CTAB HEART: RRR ABD: NABS, S/ND/NT EXTREMITY: BLE edema (L>R) SKIN: No rashes, +mild jaundice NEURO/PSYCH: A & O 3 - gives pretty good history, seems to remember me A/P: A/P: Weakness, lethargy Cirrhosis, hepatic encephalopathy (ammonia 51), esophageal varices, PV thrombus - on Xifaxan, lactulose, spironolactone, torsemide Macrocytic anemia, thrombocytopenia, hyperbilirubinemia and elevated Alk Phos (was normal last time we saw, but currently not the highest it's ever been) S/p cholecystectomy Chronic pancreatitis, suspected IPMN Recurrent choledocholithiasis - on Ursodiol CRC screen - UTD Diverticulosis -- Apparently better. Would continue regular GI meds, follow labs. Will return to see later w/ Dr. Arias, other recs pending this. Previously DNR - don't see code status entered yet. Note plans for LE US for swelling. JAZZMINE ARIAS MD 10/14/21 1309: GUILLERMINA JAUREGUI Oct 14, 2021 11:16 JAZZMINE ARIAS MD Oct 14, 2021 13:09
[2021-10-14] MEDS: POTASSIUM CHLORIDE 20 MEQ TABLET.ER. PO SCH ×2 (11:30→19:14)
[2021-10-14] MEDS: rifAXIMin 550 MG TABLET PO SCH ×2 (11:52→21:49)
[2021-10-14] MEDS: PANTOPRAZOLE 40 MG TABLET.DR. PO SCH (11:52)
[2021-10-14] MEDS: MULTIVITAMIN with MINERAL TABLET. PO SCH (11:52)
[2021-10-14] MEDS: LACTULOSE 20 GM/30 ML SOLUTION. PO SCH ×3 (11:53→21:49)
--- NOTE | 2021-10-14 12:03 | RAD ---
STUDY: US DPLX VENOUS EXTREMITY LOWER LT INDICATION: Swollen left lower extremity. Shortness of breath. TECHNIQUE: Color-flow and pulsed wave duplex ultrasound with compression of venous structures of the left lower extremity. COMPARISON: None Available. FINDINGS: Duplex ultrasound with compression of the deep venous structures of the left lower extremity from the common femoral vein through the popliteal vein is negative for DVT. The posterior tibial and peroneal veins are segmentally visualized and patent where seen. Normal veno us waveforms and augmentation are noted throughout. IMPRESSION: No deep venous thrombosis of the left lower extremity. Electronically signed by: Washington Yost MD (10/14/2021 12:01 PM) [id number]
[2021-10-14 14:56] VITALS: BP 87/47
--- NOTE | 2021-10-14 15:04 | NUR ---
SS following for discharge planning. SS reviewed pt chart and discussed with pt RN. Pt is from home with family and is currently on room air. GI consulted. SS will continue to follow for discharge planning.
[2021-10-14] MEDS ORDERED: CHOLECALCIFEROL (VITAMIN D3) 5,000 UNIT CAPSULE PO SCH (17:00)
[2021-10-14 19:00] VITALS: BP 95/46
[2021-10-14] MEDS: URSODIOL 300 MG CAPSULE. PO SCH (21:50)
[2021-10-14 23:00] VITALS: BP 94/49
[2021-10-15 03:00] VITALS: BP 93/51
[2021-10-15 05:19] LABS: HEMATOCRIT 30.1 % (39.0-53.0); HEMOGLOBIN 10.3 g/dL (13.0-17.5); RED BLOOD COUNT 2.91 x10^6/uL (4.30-5.70); RED CELL DISTRIBUTION WIDTH 14.7 % (11.5-14.5); WHITE BLOOD COUNT 4.6 x10^3/uL (4.0-11.0)
[2021-10-15 05:30] LABS: PROTHROMBIN TIME PATIENT 18.3 SEC (11.7-14.0)
[2021-10-15 06:08] LABS: ALBUMIN 2.2 g/dL (3.4-5.0); ALBUMIN/GLOBULIN RATIO 0.8 (1.0-1.7); CALCIUM 8.7 mg/dL (8.5-10.1); CREATININE 1.7 mg/dL (0.7-1.3); POTASSIUM 4.4 mmol/L (3.5-5.1); TOTAL BILIRUBIN 2.4 mg/dL (0.2-1.0); TOTAL PROTEIN 4.8 g/dL (6.4-8.2)
[2021-10-15 07:00] VITALS: BP 89/49
[2021-10-15] MEDS: DOCUSATE SODIUM 100 MG CAPSULE. PO SCH ×2 (09:00→21:00)
[2021-10-15] MEDS: PANTOPRAZOLE 40 MG TABLET.DR. PO SCH (09:22)
[2021-10-15] MEDS: LACTULOSE 20 GM/30 ML SOLUTION. PO SCH ×4 (09:22→21:26)
[2021-10-15] MEDS: rifAXIMin 550 MG TABLET PO SCH ×2 (09:22→21:25)
[2021-10-15] MEDS: CHOLECALCIFEROL (VITAMIN D3) 1,000 UNIT TABLET PO SCH (09:22)
[2021-10-15] MEDS: MULTIVITAMIN with MINERAL TABLET. PO SCH (09:22)
[2021-10-15] MEDS: POTASSIUM CHLORIDE 20 MEQ TABLET.ER. PO SCH ×2 (09:22→18:28)
[2021-10-15] MEDS: SPIRONOLACTONE 25 MG TABLET PO SCH (09:23)
[2021-10-15] MEDS: URSODIOL 300 MG CAPSULE. PO SCH ×2 (09:23→21:25)
--- NOTE | 2021-10-15 09:24 | NUR ---
Per patient he always takes his water pills even when his blood pressure is low. PAUL De called Dr. James and Dr. James ordered to go ahead and give patient the spirolactone in the am with the even with pressure being on the soft side and to recheck later and if still okay to give the torsemide.
--- NOTE | 2021-10-15 09:41 | PDOC ---
Date of Service: DATE: 10/15/21 TIME: 09:37 Subjective: Subjective: Feels back to baseline, would like to go home. Stooling with lactulose. Objective: Objective: Reviewed chart - would except lowish BP, okay for diuretics. Vital Signs: Vital Signs Date Time Temp Pulse Resp B/P (MAP) Pulse Ox O2 Delivery O2 Flow Rate FiO2 10/15/21 07:00 97.7 63 18 89/49 (62) 98 Room Air 97.7 Labs: Laboratory Tests Test 10/15/21 04:00 White Blood Count 4.6 x10^3/uL Red Blood Count 2.91 x10^6/uL Hemoglobin 10.3 g/dL Hematocrit 30.1 % Mean Corpuscular Volume 104 fL Mean Corpuscular Hemoglobin 35 pg Mean Corpuscular Hemoglobin Concent 34 g/dL Red Cell Distribution Width 14.7 % Platelet Count 67 x10^3/uL Prothrombin Time 18.3 SEC Prothromb Time International Ratio 1.6 Sodium Level 142 mmol/L Potassium Level 4.4 mmol/L Chloride Level 112 mmol/L Carbon Dioxide Level 19 mmol/L Anion Gap 11 Blood Urea Nitrogen 28 mg/dL Creatinine 1.7 mg/dL Estimated GFR (Cockcroft-Gault) 39.0 BUN/Creatinine Ratio 16 Glucose Level 81 mg/dL Calcium Level 8.7 mg/dL Total Bilirubin 2.4 mg/dL Aspartate Amino Transf (AST/SGOT) 37 U/L Alanine Aminotransferase (ALT/SGPT) 26 U/L Alkaline Phosphatase 136 U/L Ammonia 92 mcmol/L Total Protein 4.8 g/dL Albumin 2.2 g/dL Albumin/Globulin Ratio 0.8 Imaging: LE US IMPRESSION: No deep venous thrombosis of the left lower extremity. PE: GEN: NAD - breakfast tray 90% consumed - he was resting, easily awakened LUNGS: CTAB HEART: RRR ABD: NABS, S/ND/NT NEURO/PSYCH: A & O 3 - we had an appropriate conversation A/P: Weakness, lethargy - better Cirrhosis, hepatic encephalopathy Recurrent choledocholithiasis - on Ursodiol -- Ammonia is actually worse but he seems stable from GI standpoint. Consider DC soon. Encouraged him to continue lactulose and Xifaxan. Justicifation of Admission Dx: Justifications for Admission: Justification of Admission Dx: Yes GUILLERMINA JAUREGUI Oct 15, 2021 09:41
--- NOTE | 2021-10-15 10:41 | PN ---
DATE: 10/15/2021 SUBJECTIVE: The patient is resting, slightly propped up in bed, in no apparent distress, feels generally better. PHYSICAL EXAMINATION: GENERAL: When I saw him, he looked pale, jaundiced, but not cyanosed. No lymphadenopathy, no thyromegaly, no jugular venous distention. No lower limb edema. VITAL SIGNS: His heart rate was 63, blood pressure was 89/49, temperature 97.7, respiratory rate was 18 and oxygen saturation was 98%. HEAD, EYES, EARS, NOSE, AND THROAT: Normocephalic, atraumatic. NECK: Supple. HEART: Showed normal first and second heart sounds. No gallop, rub or murmur. CHEST: Clear to auscultation, no crepitation or rhonchi. ABDOMEN: Distended, soft, nontender. NEUROLOGIC: He is awake, alert, responding appropriately. All cranial nerves intact. He moves extremities without difficulty. Could not appreciate any flapping tremor. LABORATORY DATA: His lab work this morning showed white cell count 4.6, hemoglobin 10, hematocrit 30, MCV 104 and platelet count of 67,000. His chemistry showed a serum sodium 142, potassium 4.4, chloride 112, bicarbonate 19, anion gap of 11, BUN 28, creatinine 1.7. Estimated GFR was 39 mL per minute. His glucose was 81, calcium was 8.7. AST, ALT normal. Total bilirubin, alkaline phosphatase slightly elevated. His ammonia went up to 92. Total protein 4.8, albumin was 2.2. His prothrombin time was 18.3, INR 1.6. ASSESSMENT: Liver disease, likely due to recurrent choledocholithiasis and episode of hepatic encephalopathy, was admitted with extreme fatigue, shortness of breath and also was seemed to be tachycardia according to him. His left lower extremity was slightly more swollen than the right, but venous Doppler ultrasound showed no evidence of deep venous thrombosis. PLAN: To continue with lactulose. Continue with all his other medication. We will repeat his labs again tomorrow and get PT, OT to work with him and hopefully get him back home tomorrow. JORDAN/TAWANNA DR: Liz TID: [id number]
[2021-10-15 11:00] VITALS: BP 80/37
--- NOTE | 2021-10-15 11:53 | NUR ---
SS following up with discharge planning. SS reviewed pt chart and discussed with pt RN. Pt is from home and is currently on room air. GI consulted. Pt getting Lactulose. PT/OT ordered. SS will continue to follow for discharge planning.
[2021-10-15] MEDS: TORSEMIDE 20 MG TABLET. PO SCH ×2 (12:27→21:00)
[2021-10-15 15:00] VITALS: BP 83/42
[2021-10-15 19:00] VITALS: BP 99/52
[2021-10-15 23:00] VITALS: BP 90/48
[2021-10-16 03:00] VITALS: BP 113/65
[2021-10-16 07:00] VITALS: BP 97/56
[2021-10-16 08:18] LABS: CALCIUM 8.8 mg/dL (8.5-10.1); CREATININE 1.9 mg/dL (0.7-1.3); GFR 34.3; POTASSIUM 4.3 mmol/L (3.5-5.1)
[2021-10-16] MEDS: LACTULOSE 20 GM/30 ML SOLUTION. PO SCH (09:00)
[2021-10-16] MEDS: DOCUSATE SODIUM 100 MG CAPSULE. PO SCH (09:00)
[2021-10-16] MEDS: URSODIOL 300 MG CAPSULE. PO SCH (09:51)
[2021-10-16] MEDS: PANTOPRAZOLE 40 MG TABLET.DR. PO SCH (09:52)
[2021-10-16] MEDS: SPIRONOLACTONE 25 MG TABLET PO SCH (09:52)
[2021-10-16] MEDS: MULTIVITAMIN with MINERAL TABLET. PO SCH (09:52)
[2021-10-16] MEDS: CHOLECALCIFEROL (VITAMIN D3) 1,000 UNIT TABLET PO SCH (09:52)
[2021-10-16] MEDS: rifAXIMin 550 MG TABLET PO SCH (09:52)
[2021-10-16] MEDS: TORSEMIDE 20 MG TABLET. PO SCH (09:53)
[2021-10-16] MEDS ORDERED: LACT20SO PO (10:04)
[2021-10-16 11:00] VITALS: BP 90/53
--- NOTE | 2021-10-16 11:03 | DS ---
HOSPITAL COURSE: The patient was admitted with generalized weakness and elevated ammonia. I increased his lactulose and, in fact, between yesterday and today, his ammonia, if anything, is higher than his admission value, but the patient himself feels better. His generalized weakness has resolved. He is now back to his baseline. He is up and about. He is eating and drinking. He has no flapping tremor, has been able to ambulate and go to the bathroom without assistance and therefore, a decision was made to discharge him home. I made it very clear that he should have at least 2 bowel movements a day and he can increase or decrease his lactulose accordingly. PHYSICAL EXAMINATION: GENERAL: When I examined him, he was pale, but no jaundice, cyanosis or thyromegaly. No jugular venous distention. No lower limb edema. VITAL SIGNS: His heart rate was 48, blood pressure was 113/65, temperature was 98, respiratory rate was 20 and oxygen saturation was 95% on room air. HEAD, EYES, EARS, NOSE, AND THROAT: Normocephalic, atraumatic. NECK: Supple. HEART: Normal first and second heart sounds. No gallop, rub or murmur. CHEST: Clear to auscultation, no crepitation or rhonchi. ABDOMEN: Distended, soft, nontender. NEUROLOGIC: He is awake, alert, responding appropriately. All cranial nerves intact. He moves extremities without difficulty. He has no flapping tremor. He ambulates with a walker. His intake was 1300, no output was recorded. LABORATORY DATA: His lab work showed white cell count of 4.6, hemoglobin 10, hematocrit 30, MCV 104 and platelet count of 67,000. His chemistry showed a serum sodium 142, potassium 4.3, chloride 112, bicarbonate 20, anion gap of 10, BUN 25, creatinine 1.9. Estimated GFR was 34 mL per minute. His glucose was 88, calcium was 8.8 and ammonia was 84. DISCHARGE MEDICATIONS: The patient was discharged home to continue on lactulose 30 grams 3 times a day, cholecalciferol for D3 125 mcg once a day, Colace 100 mg twice a day, multivitamin 1 tablet once a day, omeprazole 20 mg once a day, potassium chloride 20 mEq twice a day, rifaximin 550 mg twice a day, spironolactone 100 mg once a day, torsemide 20 mg twice a day, ursodiol 300 mg twice a day. FINAL DISCHARGE DIAGNOSES: Chronic liver disease due to recurrent choledocholithiasis, status post endoscopic retrograde cholangiopancreatography, multiple times, hepatic encephalopathy. The patient clinically seems to be back to his baseline, although his ammonia is still high at 84, fatigue, shortness of breath has resolved. The patient is feeling back to his baseline. Chronic kidney disease, stable with creatinine of around 1.9. Chronic diastolic congestive heart failure, seems to be clinically well compensated. The patient was advised to continue with his lactulose and to at least have 2 bowel movements a day and he can adjust his lactulose up and down. BRANDAN DR: Liz TID: [id number]
[2021-10-16] MEDS: POTASSIUM CHLORIDE 20 MEQ TABLET.ER. PO SCH (11:15)
--- NOTE | 2021-10-16 17:10 | NUR ---
pt was discharged home with self care today, he was informed that his script was sent to his pharmacy choice and that there were new instructions with it. his son was able to come and pick the pt up and take him home. the pt was wheeled down to the main entrance and assisted into the vehichle. Gareth Gonzalez RN
== END 2021-10-16 13:45 | disposition home or self-care (01) | DRG 432 ==
LOC: 5 NORTH 00:50
PROVIDERS: ADMIT Internal Medicine; ATTEND Internal Medicine
DX: K74.60 Unspecified cirrhosis of liver (principal); I81 Portal vein thrombosis; K80.51 Calculus of bile duct without cholangitis or cholecystitis with obstruction; I85.00 Esophageal varices without bleeding; I13.0 Hypertensive heart and chronic kidney disease with heart failure and stage 1 through stage 4 chronic kidney disease, or unspecified chronic kidney disease; I50.32 Chronic diastolic (congestive) heart failure; K86.1 Other chronic pancreatitis; D69.6 Thrombocytopenia, unspecified; D50.9 Iron deficiency anemia, unspecified; F17.200 Nicotine dependence, unspecified, uncomplicated; K72.90 Hepatic failure, unspecified without coma; N18.9 Chronic kidney disease, unspecified; Z20.822 Contact with and (suspected) exposure to COVID-19; Z82.49 Family history of ischemic heart disease and other diseases of the circulatory system; Z90.49 Acquired absence of other specified parts of digestive tract; Z96.653 Presence of artificial knee joint, bilateral; K57.90 Diverticulosis of intestine, part unspecified, without perforation or abscess without bleeding; D53.9 Nutritional anemia, unspecified
CPT/HCPCS: 36415; 80048; 80053; 82140; 85027; 85610; 93971; 97530-GO; 97530-GP; G0378